=== PATIENT | male | born 1955 | race Caucasian/White ===

== ENCOUNTER 2017-07-05 03:46 | Observation (INO) | payer MEDICARE ==
--- NOTE | 2017-07-05 04:34 | ED ---
Chest Pain HPI - General Chief Complaint: Chest Pain Stated Complaint: Chest pain Time Seen by Provider: 07/05/17 03:48 Source: patient, EMS Mode of arrival: EMS Limitations: no limitations - History of Present Illness Initial Comments: This patient is a 61-year-old man who presents to be evaluated for chest pressure, and substernal area that came on around 2:30 this morning. Patient also states he has had multiple similar episodes of this going back for months possibly longer than that. He relates that he will often get this when he is trying to go to sleep. The symptoms are often accompanied by racing heartbeat or skipped beats. He does not use a CPAP, nor has he had a sleep study. MD Complaint: chest pain -: hour(s) Onset: during rest Pain Location: substernal Pain Radiation: none Severity: moderate Quality: tightness, heaviness Consistency: now resolved Improves With: nothing Worsens With: nothing Anginal Symptoms: dyspnea Treatments Prior to Arrival: none - Related Data Home Medications Medication Instructions Recorded Confirmed Aspirin 81 mg PO DAILY 07/05/17 07/05/17 Esomeprazole Magnesium [NexIUM] 40 mg PO DAILY 07/05/17 07/05/17 Febuxostat [Uloric] 40 mg PO Q48H 07/05/17 07/05/17 Fluticasone Nasal [place] [Flonase 1 - 2 spray EA NOSTRIL DAILY PRN 07/05/1707/05 Nasal [place]] Furosemide [Lasix] 40 mg PO Q48H 07/05/17 07/05/17 HYDROcodone/APAP 10-325MG [[place] 1 tab PO TID PRN 07/05/17 07/05/17 10-325] Levothyroxine Sodium [Synthroid] 75 mcg PO DAILY 07/05/17 07/05/17 Lisinopril [Zestril] 40 mg PO DAILY 07/05/17 07/05/17 Nadolol [Corgard] 20 mg PO DAILY 07/05/17 07/05/17 Potassium Chloride ER [K-Dur 20] 20 meq PO Q48H 07/05/17 07/05/17 Sertraline [Zoloft] 50 mg PO DAILY 07/05/17 07/05/17 amLODIPine [Norvasc] 10 mg PO DAILY 07/05/17 07/05/17 busPIRone HCL [Buspar] 30 mg PO DAILY 07/05/17 07/05/17 busPIRone HCL [Buspar] 30 mg PO HS PRN 07/05/17 07/05/17 Allergies Allergy/AdvReac Type Severity Reaction Status Date / Time cholesterol meds AdvReac See Uncoded 07/05/17 07:36 comments Review of Systems ROS Statement: Those systems with pertinent positive or pertinent negative responses have been documented in the HPI. ROS Other: All systems not noted in ROS Statement are negative. Constitutional: Denies: fever, chills Eyes: Denies: vision change Respiratory: Reports: dyspnea. Denies: cough, wheezes, hemoptysis Cardiovascular: Reports: chest pain, palpitations, orthopnea. Denies: dyspnea on exertion, edema, syncope Gastrointestinal: Denies: abdominal pain, vomiting, diarrhea Genitourinary: Denies: dysuria, hematuria Musculoskeletal: Denies: back pain Skin: Denies: rash Neurological: Denies: headache, weakness, numbness Psychiatric: Reports: anxiety EKG Findings - EKG Results: EKG: interpreted by SHABBIR, sinus rhythm (Rate approximately 80 bpm), normal axis , normal QRS - Blocks, [place], Hypertrophy, ST Abn: Repolarization changes or abnormalities: ST or T wave suggestive of ischemia ( Anterior leads, V2 through V5) Past Medical History Past Medical History: Atrial Fibrillation, Heart Failure, Hypertension, Thyroid Disorder History of Any Multi-Drug Resistant Organisms: None Reported Past Surgical History: Hernia Repair Past Psychological History: No Psychological Hx Reported Smoking Status: Current every day smoker Past Alcohol Use History: Daily General Exam Limitations: no limitations General appearance: alert, in no apparent distress, obese Head exam: Present: atraumatic, normocephalic Eye exam: Present: normal appearance ENT exam: Present: normal oropharynx Neck exam: Present: normal inspection, full ROM Respiratory exam: Present: wheezes (Trace expiratory wheeze). Absent: respiratory distress, rales, rhonchi, stridor, chest wall tenderness, accessory muscle use, decreased breath sounds, prolonged expiratory Cardiovascular Exam: Present: regular rate, normal rhythm, normal heart sounds. Absent: systolic murmur, diastolic murmur, rubs, gallop GI/Abdominal exam: Present: soft. Absent: distended, tenderness, guarding, rebound, mass Extremities exam: Present: normal inspection, normal capillary refill. Absent: pedal edema, calf tenderness Back exam: Present: normal inspection. Absent: CVA tenderness (R), CVA tenderness (L) Neurological exam: Present: alert Skin exam: Present: warm, dry, intact, normal color. Absent: rash Course Vital Signs 07/05/17 07/05/17 07/05/17 03:51 06:38 07:39 Temperature 98.4 F Pulse Rate 83 74 73 Respiratory 18 16 18 Rate Blood Pressure 148/83 121/73 122/76 O2 Sat by Pulse 97 96 97 Oximetry 07/05/17 08:16 Temperature Pulse Rate 73 Respiratory 18 Rate Blood Pressure 125/72 O2 Sat by Pulse 93 L Oximetry Chest Pain MDM - MDM This patient is 61-year-old man presenting to be evaluated for chest pain and palpitations that developed when he was lying flat trying to sleep. He has had episodes of this going back for some time. Suspect the underlying mechanism is related to obstructive sleep apnea. We'll admit for telemetry, serial cardiac enzymes. The patient also does drink 6-8 beers, will cover with Ativan protocol. Disposition
[2017-07-05 04:35] LABS: Basophils % (A) 1 %; Eosinophils # (A) 0.1 k/uL (0-0.7); Eosinophils % (A) 5 %; HGB 11.5 gm/dL (13.0-17.5); Lymphocytes # (A) 0.9 k/uL (1.0-4.8); Lymphocytes % (A) 32 %; MCHC 33.9 g/dL (31.0-37.0); MCV 103.5 fL (80.0-100.0); Macrocytosis Moderate; Mean Platelet Volume 8.3; Monocytes # (A) 0.1 k/uL (0-1.0); Monocytes % (A) 5 %; Neutrophils # (A) 1.5 k/uL (1.3-7.7); Neutrophils % (A) 55 %; Platelet Count 144 k/uL (150-450); Poikilocytosis Slight; RBC 3.28 m/uL (4.30-5.90); RDW 15.8 % (11.5-15.5); WBC 2.7 k/uL (3.8-10.6)
--- NOTE | 2017-07-05 04:38 | XR ---
EXAM: XR Chest, 2 Views CLINICAL HISTORY: ITS.REASON XR Reason: Chest Pain TECHNIQUE: Frontal and lateral views of the chest. COMPARISON: No relevant prior studies available. FINDINGS: Lungs: Unremarkable. No consolidation. Pleural space: Unremarkable. No pneumothorax. Heart: Mild cardiomegaly. Mediastinum: Unremarkable. Bones/joints: Unremarkable. IMPRESSION: Mild cardiomegaly. No acute cardiopulmonary findings.
[2017-07-05 04:48] LABS: ALT 138 U/L (21-72); AST 136 U/L (17-59); Alkaline Phosphatase 122 U/L (38-126); Anion Gap 12 mmol/L; Blood Urea Nitrogen 4 mg/dL (9-20); Carbon Dioxide 24 mmol/L (22-30); Chloride 94 mmol/L (98-107); Glucose 163 mg/dL (74-99); Potassium 3.5 mmol/L (3.5-5.1); Sodium 130 mmol/L (137-145); Total Bilirubin 1.2 mg/dL (0.2-1.3); Total Protein 6.3 g/dL (6.3-8.2)
[2017-07-05 04:51] LABS: D-Dimer 0.23 mg/L FEU (<0.60)
[2017-07-05 04:55] LABS: INR 1.1 (<1.2); Partial Thromboplastin Time 22.6 sec (22.0-30.0); Prothrombin Time 10.3 sec (9.0-12.0)
[2017-07-05 04:58] LABS: Creatine Kinase 52 U/L (55-170)
[2017-07-05 05:11] LABS: Troponin I <0.012 ng/mL (0.000-0.034)
[2017-07-05] MEDS ORDERED: NITROGLYCERIN SL TABS 0.4 MG TAB SUBLINGUAL PRN (06:57)
[2017-07-05] MEDS ORDERED: THIAMINE 100 MG/ML 2 ML VIAL IM STA (07:11)
[2017-07-05] MEDS ORDERED: LORazepam 2 MG/ML INJ IV PRN ×3 (07:11)
[2017-07-05] MEDS ORDERED: INFLUENZA VACCINE (6 MOS+) 60 MCG/0.5 ML SYRINGE IM ONE (08:20)
[2017-07-05] MEDS ORDERED: PNEUMOCOCCAL VACC-PNEUMOVAX 23 25 MCG/0.5 ML VIAL IM ONE (08:20)
[2017-07-05] MEDS ORDERED: busPIRone HCl 10 MG TAB PO PRN (09:26)
[2017-07-05] MEDS ORDERED: HYDROcodone/APAP 10-325MG 1 EACH TAB PO PRN (09:26)
[2017-07-05] MEDS ORDERED: POTASSIUM CHLORIDE ER 20 MEQ TAB.ER PO SCH (09:30)
[2017-07-05] MEDS ORDERED: FUROSEMIDE 40 MG TAB PO SCH (09:30)
[2017-07-05] MEDS ORDERED: ALLOPURINOL 100 MG TAB PO SCH (09:30)
[2017-07-05 10:30] LABS: Creatine Kinase 69 U/L (55-170)
[2017-07-05 10:41] LABS: Creatine Kinase MB 0.9 ng/mL (0.0-2.4); Troponin I <0.012 ng/mL (0.000-0.034)
--- NOTE | 2017-07-05 10:41 | ECHOF ---
Referral Reason:sob MEASUREMENTS -------- HEIGHT: 195.6 cm WEIGHT: 146.5 kg BP: 141/87 RVIDd: 3.7 cm (< 3.3) IVSd: 1.5 cm (0.6 - 1.1) LVIDd: 5.4 cm (3.9 - 5.3) LVPWd: 1.6 cm (0.6 - 1.1) IVSs: 1.9 cm LVIDs: 4.2 cm LVPWs: 2.0 cm LA Diam: 4.2 cm (2.7 - 3.8) LAESV Index (A-L): 26.26 ml/m Ao Diam: 4.0 cm (2.0 - 3.7) AV Cusp: 2.1 cm (1.5 - 2.6) MV EXCURSION: 20.195 mm (> 18.000) MV EF SLOPE: 93 mm/s (70 - 150) EPSS: 0.4 cm MV E Naresh: 0.87 m/s MV DecT: 266 ms MV A Naresh: 1.28 m/s MV E/A Ratio: 0.68 RAP: 5.00 mmHg RVSP: 24.33 mmHg FINDINGS -------- Sinus rhythm. This was a technically adequate study. The left ventricular size is normal. There is moderate concentric left ventricular hypertrophy. O verall left ventricular systolic function is normal with, an EF between 55 - 60 %. The right ventricle is mild to moderately enlarged. Normal LA size by volume 22+/-6 ml/m2. The right atrium is normal in size. There is mild aortic valve sclerosis. Mild mitral annular calcification present. There is trace mitral regurgitation. Mild tricuspid regurgitation present. Right ventricular systolic pressure is normal at < 35 mmHg. Trace/mild (physiologic) pulmonic regurgitation. The aortic root is dilated measuring 4.0cm. IVC Not well visulized. There is no pericardial effusion. CONCLUSIONS -------- 1. Sinus rhythm. 2. This was a technically adequate study. 3. The left ventricular size is normal. 4. There is moderate concentric left ventricular hypertrophy. 5. Overall left ventricular systolic function is normal with, an EF between 55 - 60 %. 6. The right ventricle is mild to moderately enlarged. 7. Normal LA size by volume 22+/-6 ml/m2. 8. The right atrium is normal in size. 9. There is mild aortic valve sclerosis. 10. Mild mitral annular calcification present. 11. There is trace mitral regurgitation. 12. Mild tricuspid regurgitation present. 13. Right ventricular systolic pressure is normal at < 35 mmHg. 14. Trace/mild (physiologic) pulmonic regurgitation. 15. The aortic root is dilated measuring 4.0cm. 16. IVC Not well visulized. 17. There is no pericardial effusion. CORN GRINDER: Jennie Waite RDCS
[2017-07-05] MEDS: SERTRALINE 50 MG TAB PO SCH (11:53)
[2017-07-05] MEDS: LISINOPRIL 20 MG TAB PO SCH (11:53)
[2017-07-05] MEDS: NADOLOL 20 MG TAB PO SCH (11:53)
[2017-07-05] MEDS: PANTOPRAZOLE 40 MG TABLET PO SCH (11:54)
[2017-07-05] MEDS: LEVOTHYROXINE 75 MCG TAB PO SCH (11:54)
[2017-07-05] MEDS: busPIRone HCl 10 MG TAB PO SCH (11:56)
--- NOTE | 2017-07-05 12:58 | P.HPIM ---
History of Present Illness H&P Date: 07/05/17 Chief Complaint: Racing heart This is a 61-year-old male with a known history of alcohol dependence, atrial fibrillation, congestive heart failure, hypothyroidism, hypertension and nicotine dependence. Patient presents to the emergency room with complaints of heart palpitations and racing heart over the last 3 nights. Patient reports each night he is gone to bed around 11:00 and starts to have racing heart shortness of breath and feeling lightheaded. He became very concerned when he had started to feel as though his arm was falling asleep during these episodes. He's also been very fatigued and not feeling well. He's been dealing with sinus congestion since May and also believes he had flulike symptoms. He' s been admitted to the observation floor cardiology has been consulted. His last stress test was 2 years ago. Troponins are negative 2. Chest x-rays negative for any acute process. It did reveal mild cardiomegaly. EKG shows a normal sinus rhythm with ST and T-wave abnormality consider anterior ischemia. D-dimer within normal range. White count 2.7 hemoglobin 11.5 and platelets are 144 possibly related to his alcohol use. As well as a sodium of 130 with AST 136 and ALT 138. Patient denies any nausea or vomiting. Denies any chest chest pain. Denies any bowel movement changes or any new urinary symptoms. Past Medical History Past Medical History: Atrial Fibrillation, Heart Failure, Hypertension, Thyroid Disorder Additional Past Medical History / Comment(s): Recent sinus infection/congestion tx with antibiotics, chronic pain low back, spinal stenosis, lumbago, arthritis multiple joints, past elevated LFTs, past Dimas's palsey. History of Any Multi-Drug Resistant Organisms: None Reported Past Surgical History: Hernia Repair Additional Past Surgical History / Comment(s): Abdominal hernia repair, R thigh fatty tumor removed, colonoscopies, epidural injections low back. Past Anesthesia/Blood Transfusion Reactions: No Reported Reaction Past Psychological History: No Psychological Hx Reported Smoking Status: Current every day smoker Past Alcohol Use History: Daily Medications and Allergies Home Medications Medication Instructions Recorded Confirmed Type Aspirin 81 mg PO DAILY 07/05/17 07/05/17 History Esomeprazole Magnesium [NexIUM] 40 mg PO DAILY 07/05/17 07/05/17 History Febuxostat [Uloric] 40 mg PO Q48H 07/05/17 07/05/17 History Fluticasone Nasal [place] [Flonase 1 - 2 spray EA NOSTRIL DAILY PRN 07/05/1707/05 History Nasal [place]] Furosemide [Lasix] 40 mg PO Q48H 07/05/17 07/05/17 History HYDROcodone/APAP 10-325MG [[place] 1 tab PO TID PRN 07/05/17 07/05/17 History 10-325] Levothyroxine Sodium [Synthroid] 75 mcg PO DAILY 07/05/17 07/05/17 History Lisinopril [Zestril] 40 mg PO DAILY 07/05/17 07/05/17 History Nadolol [Corgard] 20 mg PO DAILY 07/05/17 07/05/17 History Potassium Chloride ER [K-Dur 20] 20 meq PO Q48H 07/05/17 07/05/17 History Sertraline [Zoloft] 50 mg PO DAILY 07/05/17 07/05/17 History amLODIPine [Norvasc] 10 mg PO DAILY 07/05/17 07/05/17 History busPIRone HCL [Buspar] 30 mg PO DAILY 07/05/17 07/05/17 History busPIRone HCL [Buspar] 30 mg PO HS PRN 07/05/17 07/05/17 History Allergies Allergy/AdvReac Type Severity Reaction Status Date / Time cholesterol meds AdvReac See Uncoded 07/05/17 07:36 comments Physical Exam Vitals: Vital Signs Temp Pulse Pulse Resp BP BP Pulse Ox 07/05/17 12:00 75 18 07/05/17 11:10 75 18 07/05/17 09:17 97.7 F 75 18 141/87 100 07/05/17 09:03 98.4 F 73 18 125/72 93 L 07/05/17 08:16 73 18 125/72 93 L 07/05/17 07:39 73 18 122/76 97 07/05/17 06:38 74 16 121/73 96 07/05/17 03:51 98.4 F 83 18 148/83 97 Intake and Output 07/04/17 07/05/17 07/05/17 22:59 06:59 14:59 Other: Voiding Method Toilet # Voids 1 Weight 147.418 kg 146.6 kg Results CBC & Chem 7: 03/27/18 04:05 07/05/17 04:05 Labs: Abnormal Lab Results - Last 24 Hours (Table) 07/05/17 07/05/17 07/05/17 Range/Units 04:05 04:05 04:05 WBC 2.7 L (3.8-10.6) k/uL RBC 3.28 L (4.30-5.90) m/uL Hgb 11.5 L (13.0-17.5) gm/dL Hct 34.0 L (39.0-53.0) % MCV 103.5 H (80.0-100.0) fL RDW 15.8 H (11.5-15.5) % Plt Count 144 L (150-450) k/uL Lymphocytes # 0.9 L (1.0-4.8) k/uL Sodium 130 L (137-145) mmol/L Chloride 94 L (98-107) mmol/L BUN 4 L (9-20) mg/dL Glucose 163 H (74-99) mg/dL AST 136 H (17-59) U/L ALT 138 H (21-72) U/L Total Creatine Kinase 52 L (55-170) U/L Thrombosis Risk Factor Assmnt - Choose All That Apply Any of the Below Risk Factors Present?: Yes Each Factor Represents 1 point: Obesity (BMI >25), Swollen legs (current) Other Risk Factors: Yes Each Risk Factor Represents 2 Points: Age 61-74 years Other congenital or acquired thrombophilia - If yes, enter type in comment: No Thrombosis Risk Factor Assessment Total Risk Factor Score: 4 Thrombosis Risk Factor Assessment Level: Moderate Risk Assessment and Plan Assessment: 1. Heart palpitations with shortness of breath and lightheadedness: Continue with telemetry monitoring currently remains in normal sinus rhythm. EKG shows a normal sinus rhythm with some ST and T-wave abnormality. Troponins are negative 2. Cardiology has been consulted. Echocardiogram results pending. Check thyroid level 2. History of atrial fibrillation patient reports never being on anticoagulation 3. Alcohol dependence: Drinks about 6-8 beers daily. Patient started on the CIWA protocol with Ativan. Continue thiamine and multivitamin 4. Hyponatremia sodium 130: Likely related to patient's alcohol use. He is also on Lasix. We'll place him on fluid restrictions 1500 mL per day 5. Elevated LFTs likely related to patient's alcohol use. No abdominal pain. 6. Nicotine dependence discussed smoking cessation. Patient refused nicotine patch 7. Leukopenia and thrombocytopenia again likely related to patient's alcohol use. Repeat labs in a.m. 8. Hypothyroidism checking thyroid level. Continue Synthroid 9. Essential hypertension continue lisinopril GI and DVT prophylaxis Pepcid and subcu heparin Time with Patient: Greater than 30 (Greater than 50% of the total time spent in counseling and coordination of care.I performed an examination of the patient and discussed their management with the physician Loom Setter Fourdrinier. I have reviewed the Physician Loom Setter Fourdrinier's notes and agree with the documented findings and plan of care)
--- NOTE | 2017-07-05 14:10 | P.CRDCN ---
History of Present Illness Consult date: 07/05/17 Consult reason: shortness of breath History of present illness: Mr. Hernadez is a pleasant 61-year-old male past medical history significant for hypertension, gastroesophageal reflux disease, anxiety, depression, hypothyroidism, chronic back pain, daily alcohol use and chronic tobacco and marijuana use. He denies history of coronary artery disease or atrial fibrillation. He states he wore an event monitor many years ago but that was unremarkable at that time. He has never seen a interpretive program coordinator for any reason. We have been asked to see him in consultation for chest pain and palpitations. He states for the last 4 nights when he lays down for bed he starts feeling his heart racing fast. This lasts for approximately 30-60 seconds and then slowly subsides on its own. However, last night it started again and didn't slow down for approximately 2 hours. It was at this time he decided to come to the hospital for further evaluation. At the time of the palpitations he feels mildly short of breath and slightly dizzy as well. He denies associated chest pain, diaphoresis, nausea or vomiting. Since coming to the hospital the symptoms have resolved and he has had no reoccurrence. He states he has had a stress test and an echocardiogram with his primary care physician approximately 2 years ago that was unremarkable. EKG on arrival reveals sinus mechanism with nonspecific ST and T-wave abnormalities. Chest x-ray mild cardiomegaly with no acute cardiopulmonary process. Laboratory data reviewed, d-dimer negative, cardiac enzymes negative 2, potassium 3.5, sodium 1:30, magnesium 2.0, proBNP 262, AST 136, ALP 138, hemoglobin 11.5. Current cardiac medications include lisinopril 40 mg daily, amlodipine 10 mg daily, aspirin 81 mg daily, nadolol 20 mg daily, Lasix 40 mg every other day and potassium supplementation 20 every other day. Echocardiogram and Doppler study was performed reveals preserved left ventricular systolic function with ejection fraction 55-60%. Review of Systems At the time of my exam: CONSTITUTIONAL: Denies fever. Denies chills. EYES: Denies blurred vision. Denies vision changes. Denies eye pain. EARS, NOSE, MOUTH & THROAT: Denies headache. Denies sore throat. Denies ear pain. CARDIOVASCULAR: Denies chest pain. Denies shortness of breath. Denies orthopnea. Denies PND. Denies palpitations. RESPIRATORY: Denies cough. GASTROINTESTINAL: Denies abdominal pain. Denies diarrhea. Denies constipation. Denies nausea. Denies vomiting. MUSCULOSKELETAL: Denies myalgias. INTEGUMENTARY: Denies pruitis. Denies rash. NEUROLOGIC: Denies numbness. Denies tingling. Denies weakness. PSYCHIATRIC: Denies anxiety. Denies depression. ENDOCRINE: Denies fatigue. Denies weight change. Denies polydipsia. Denies polyurina. GENITOURINARY: Denies burning, hematuria or urgency with micturation. HEMATOLOGIC: Denies history of anemia. Denies bleeding. Past Medical History Past Medical History: Atrial Fibrillation, Heart Failure, Hypertension, Thyroid Disorder Additional Past Medical History / Comment(s): Recent sinus infection/congestion tx with antibiotics, chronic pain low back, spinal stenosis, lumbago, arthritis multiple joints, past elevated LFTs, past Dimas's palsey. History of Any Multi-Drug Resistant Organisms: None Reported Past Surgical History: Hernia Repair Additional Past Surgical History / Comment(s): Abdominal hernia repair, R thigh fatty tumor removed, colonoscopies, epidural injections low back. Past Anesthesia/Blood Transfusion Reactions: No Reported Reaction Past Psychological History: No Psychological Hx Reported Smoking Status: Current every day smoker Past Alcohol Use History: Daily Medications and Allergies Home Medications Medication Instructions Recorded Confirmed Type Aspirin 81 mg PO DAILY 07/05/17 07/05/17 History Esomeprazole Magnesium [NexIUM] 40 mg PO DAILY 07/05/17 07/05/17 History Febuxostat [Uloric] 40 mg PO Q48H 07/05/17 07/05/17 History Fluticasone Nasal [place] [Flonase 1 - 2 spray EA NOSTRIL DAILY PRN 07/05/1707/05 History Nasal [place]] Furosemide [Lasix] 40 mg PO Q48H 07/05/17 07/05/17 History HYDROcodone/APAP 10-325MG [[place] 1 tab PO TID PRN 07/05/17 07/05/17 History 10-325] Levothyroxine Sodium [Synthroid] 75 mcg PO DAILY 07/05/17 07/05/17 History Lisinopril [Zestril] 40 mg PO DAILY 07/05/17 07/05/17 History Nadolol [Corgard] 20 mg PO DAILY 07/05/17 07/05/17 History Potassium Chloride ER [K-Dur 20] 20 meq PO Q48H 07/05/17 07/05/17 History Sertraline [Zoloft] 50 mg PO DAILY 07/05/17 07/05/17 History amLODIPine [Norvasc] 10 mg PO DAILY 07/05/17 07/05/17 History busPIRone HCL [Buspar] 30 mg PO DAILY 07/05/17 07/05/17 History busPIRone HCL [Buspar] 30 mg PO HS PRN 07/05/17 07/05/17 History Allergies Allergy/AdvReac Type Severity Reaction Status Date / Time cholesterol meds AdvReac See Uncoded 07/05/17 07:36 comments Physical Exam Vitals: Vital Signs Temp Pulse Pulse Resp BP BP Pulse Ox 07/05/17 09:17 97.7 F 75 18 141/87 100 07/05/17 09:03 98.4 F 73 18 125/72 93 L 07/05/17 08:16 73 18 125/72 93 L 07/05/17 07:39 73 18 122/76 97 07/05/17 06:38 74 16 121/73 96 07/05/17 03:51 98.4 F 83 18 148/83 97 Intake and Output 07/04/17 07/05/17 07/05/17 22:59 06:59 14:59 Other: Weight 147.418 kg 146.6 kg Blood pressure 125/72 heart rate 73 afebrile maintaining oxygen saturation on room air GENERAL: This is a 61-year-old male in no apparent distress at the time of my examination. HEENT: Head is atraumatic, normocephalic. Pupils are equal, round. Sclerae anicteric. Conjunctivae are clear. Mucous membranes of the mouth are moist. Neck is supple. There is no jugular venous distention. No carotid bruit is heard. LUNGS: Clear to auscultation no wheezes, rales or rhonchi. No chest wall tenderness is noted on palpation or with deep breathing. HEART: Regular rate and rhythm without murmurs, rubs or gallops. S1 and S2 heard. ABDOMEN: Soft, nontender. Bowel sounds are heard. No organomegaly noted. EXTREMITIES: 1+ pitting bilateral lower extremity edema and no calf tenderness noted. VASCULAR: Radial and dorsalis pedis pulses palpated, no evidence of clubbing. NEUROLOGIC: Patient is awake, alert and oriented x3. Results 07/05/17 04:05 07/05/17 04:05 Cardiac Enzymes 07/05/17 07/05/17 Range/Units 04:05 04:05 AST 136 H (17-59) U/L CK-MB (CK-2) 1.0 (0.0-2.4) ng/mL Troponin I <0.012 (0.000-0.034) ng/mL Coagulation 07/05/17 Range/Units 04:05 PT 10.3 (9.0-12.0) sec APTT 22.6 (22.0-30.0) sec CBC 07/05/17 Range/Units 04:05 WBC 2.7 L (3.8-10.6) k/uL RBC 3.28 L (4.30-5.90) m/uL Hgb 11.5 L (13.0-17.5) gm/dL Hct 34.0 L (39.0-53.0) % Plt Count 144 L (150-450) k/uL Comprehensive Metabolic Panel 07/05/17 Range/Units 04:05 Sodium 130 L (137-145) mmol/L Potassium 3.5 (3.5-5.1) mmol/L Chloride 94 L (98-107) mmol/L Carbon Dioxide 24 (22-30) mmol/L BUN 4 L (9-20) mg/dL Creatinine 0.70 (0.66-1.25) mg/dL Glucose 163 H (74-99) mg/dL Calcium 9.0 (8.4-10.2) mg/dL AST 136 H (17-59) U/L ALT 138 H (21-72) U/L Alkaline Phosphatase 122 (38-126) U/L Total Protein 6.3 (6.3-8.2) g/dL Albumin 4.0 (3.5-5.0) g/dL Current Medications Generic Name Dose Route Start Last Admin Trade Name Freq PRN Reason Stop Dose Admin Hydrocodone Bitart/Acetaminophen 1 each 07/05/17 09:26 [place] 10 PO TID PRN Pain Aspirin 325 mg 07/06/17 09:00 Aspirin PO DAILY JERRY Buspirone HCl 30 mg 07/05/17 09:30 Buspar PO DAILY JERRY Buspirone HCl 30 mg 07/05/17 09:26 Buspar PO HS PRN Anxiety Furosemide 40 mg 07/05/17 09:30 Lasix PO Q48H [facility] Levothyroxine Sodium 75 mcg 07/05/17 09:30 Synthroid PO DAILY JERRY Lorazepam 1 mg 07/05/17 07:11 Ativan IV Q2HR PRN CIWA 8 or 9 Lorazepam 1 mg 07/05/17 07:11 Ativan IV Q1HR PRN CIWA 10 to 15 Lorazepam 2 mg 07/05/17 07:11 Ativan IV 07/07/17 07:11 Q10M PRN CIWA 16 or higher Nadolol 20 mg 07/05/17 09:30 Corgard PO DAILY [facility] Nitroglycerin 0.4 mg 07/05/17 06:57 Nitrostat SUBLINGUAL Q5M PRN Chest Pain Non-Formulary Medication 40 mg 07/05/17 09:30 Febuxostat [Uloric] PO Q48H [facility] Non-Formulary Medication 40 mg 07/05/17 09:30 Lisinopril [Zestril] PO DAILY [facility] Pantoprazole Sodium 40 mg 07/05/17 09:30 Protonix PO AC-BRKFST [facility] Potassium Chloride 20 meq 07/05/17 09:30 K-Dur 20 PO Q48H [facility] Sertraline HCl 50 mg 07/05/17 09:30 Zoloft PO DAILY [facility] Thiamine HCl 100 mg 07/05/17 17:00 Vitamin B-1 PO BID@1200,1700 [facility] Intake and Output 07/04/17 07/05/17 07/05/17 22:59 06:59 14:59 Other: Weight 147.418 kg 146.6 kg Patient Weight 07/06/17 06:59 Weight 146.6 kg 07/05/17 04:05 07/05/17 04:05 Assessment and Plan Assessment: ASSESSMENT 1. Chest pain, atypical. 2. Palpitations 3. Hypertension 4. Dyslipidemia, unable to tolerate statins 5. Chronic tobacco use 6. Daily alcohol use 7. Elevated liver function PLAN Check TSH and free T4. Continue to obtain serial cardiac enzymes to rule out an acute coronary event. Ongoing telemetry monitoring for an acute arrhythmia. Advised him to tell his nurse if he is feeling any symptoms to capture an EKG. If third set of enzymes are negative we will proceed with Lexiscan stress test tomorrow. May consider event monitor upon discharge. Advised him of lifestyle modifications, especially alcohol and tobacco cessation. Thank you kindly for this consultation. Nurse Practitioner note has been reviewed, I agree with a documented findings and plan of care. Patient was seen and examined.
[2017-07-05 16:31] LABS: Creatine Kinase 65 U/L (55-170)
[2017-07-05 16:44] LABS: Creatine Kinase MB 0.7 ng/mL (0.0-2.4); Troponin I <0.012 ng/mL (0.000-0.034)
[2017-07-05] MEDS: SODIUM CHLORIDE 0.9% 1,000 ML IV SCH ×2 (17:53→20:53)
[2017-07-05] MEDS: FAMOTIDINE 20 MG TAB PO SCH (17:53)
[2017-07-05] MEDS: THIAMINE 100 MG TAB PO SCH (18:01)
[2017-07-05] MEDS: HEPARIN SODIUM,PORCINE 5,000 UNIT/ML 1 ML VIAL SQ SCH (20:52)
[2017-07-06] MEDS ORDERED: AMINOPHYLLINE 500 MG/20 ML VIAL IV PRN (05:00)
[2017-07-06] MEDS: SODIUM CHLORIDE 0.9% 1,000 ML IV SCH (06:45)
[2017-07-06 07:37] LABS: Cholesterol 169 mg/dL (<200); HDL Cholesterol 40 mg/dL (40-60); LDL Cholesterol,Calculated 102 mg/dL (0-99); Triglycerides 136 mg/dL (<150)
[2017-07-06] MEDS ORDERED: REGADENOSON 0.4 MG/5 ML SYRINGE IV ONE (08:00)
[2017-07-06] MEDS ORDERED: ASPIRIN 325 MG TAB PO SCH ×2 (09:00)
[2017-07-06] MEDS: NADOLOL 20 MG TAB PO SCH (10:27)
[2017-07-06] MEDS: LISINOPRIL 20 MG TAB PO SCH (10:27)
[2017-07-06] MEDS: FAMOTIDINE 20 MG TAB PO SCH (10:27)
[2017-07-06] MEDS: busPIRone HCl 10 MG TAB PO SCH (10:27)
[2017-07-06] MEDS: LEVOTHYROXINE 75 MCG TAB PO SCH (10:28)
[2017-07-06] MEDS: SERTRALINE 50 MG TAB PO SCH (10:28)
[2017-07-06] MEDS: THIAMINE 100 MG TAB PO SCH (10:28)
[2017-07-06] MEDS: PANTOPRAZOLE 40 MG TABLET PO SCH (10:28)
[2017-07-06] MEDS: HEPARIN SODIUM,PORCINE 5,000 UNIT/ML 1 ML VIAL SQ SCH (10:28)
[2017-07-06] MEDS ORDERED: ASPIRIN 81 MG PO SCH (10:39)
--- NOTE | 2017-07-06 10:40 | NM ---
EXAMINATION TYPE: NM stress lexiscan cardiolite DATE OF EXAM: 07/06/2017 COMPARISON: NONE HISTORY: 61 year-old male shortness of breath, difficulty breathing, palpitations TECHNIQUE: After the intravenous administration of 9.9 mCi Tc 99m Sestamibi - Cardiolite resting SPE CT images acquired 45 minutes post injection. The patient received 0.4mg Lexiscan, 26.7 mCi Tc 99m Sestamibi - Stress images obtained [address] injection FINDINGS: Review of stress and rest SPECT images demonstrates no distinct stress-induced perfusion abnormality. On rest images, there is decreased perfusion along the apex and inferior wall suggestive of attenuat ion artifact. Gated analysis shows normal wall motion with an estimated left ventricular ejection fra ction of 68 %. TID is calculated at 0.78, within normal limits. IMPRESSION: No scintigraphic evidence for reversible ischemia.
[2017-07-06] MEDS ORDERED: MULTIVITAMINS, THERA 1 EACH TAB PO SCH (12:00)
--- NOTE | 2017-07-06 14:50 | EST ---
EXERCISE STRESS DATE OF SERVICE: 07/06/17 AGE: 61 SEX: M HT: 6'5" WT: 323 lb HEART RATE REST: 62 BLOOD PRESSURE REST: 138/75 MAXIMUM HEART RATE ACHIEVED: 92 MAXIMUM BLOOD PRESSURE: 161/86 85% MPHR: 134 100% MPHR: 158 METS: INDICATIONS: Difficulty breathing. RESULTS: Baseline EKG revealed normal sinus rhythm with inferolateral nonspecific ST abnormality. With Lexiscan administration, heart rate changed from 68-79 beats per minute. Blood pressure changed from 138/75 to 159/81. EKG remained inconclusive. Patient had transient nausea. By EKG criteria, this is an inconclusive Lexiscan stress test because of resting EKG changes. The nuclear scan results, which are more pertinent, will be reported by the radiologist. MMKERRI / EZEKIELN: [id number] /
--- NOTE | 2017-07-06 15:57 | P.DS ---
Providers Date of admission: 07/05/17 07:11 Expected date of discharge: 07/06/17 Attending physician: Gary Camilo Consults: 07/05/17 06:57 Consult Physician Routine Consulting Provider: Adrien Minor Consult Reason/Comments: chest pain Do you want consulting provider notified?: Yes Primary care physician: Lucia Light Pertinent Studies: Diagnoses on discharge: 1. Heart palpitations with shortness of breath and lightheadedness: Continue with telemetry monitoring currently remains in normal sinus rhythm. EKG shows a normal sinus rhythm with some ST and T-wave abnormality. Troponins are negative 2. Cardiology has been consulted. Echocardiogram results pending. Check thyroid level 2. History of atrial fibrillation patient reports never being on anticoagulation 3. Alcohol dependence: Drinks about 6-8 beers daily. Patient started on the CIWA protocol with Ativan. Continue thiamine and multivitamin 4. Hyponatremia sodium 130: Likely related to patient's alcohol use. He is also on Lasix. We'll place him on fluid restrictions 1500 mL per day 5. Elevated LFTs likely related to patient's alcohol use. No abdominal pain. 6. Nicotine dependence discussed smoking cessation. Patient refused nicotine patch 7. Leukopenia and thrombocytopenia again likely related to patient's alcohol use. Repeat labs in a.m. 8. Hypothyroidism checking thyroid level. Continue Synthroid 9. Essential hypertension continue lisinopril, Nadolol and amlodipine Hospital course: This is a 61-year-old male with a known history of alcohol dependence, atrial fibrillation, congestive heart failure, hypothyroidism, hypertension and nicotine dependence. Patient presents to the emergency room with complaints of heart palpitations and racing heart over the last 3 nights. Patient reports each night he is gone to bed around 11:00 and starts to have racing heart shortness of breath and feeling lightheaded. He became very concerned when he had started to feel as though his arm was falling asleep during these episodes. He's also been very fatigued and not feeling well. He's been dealing with sinus congestion since May and also believes he had flulike symptoms. He' s been admitted to the observation floor cardiology has been consulted. His last stress test was 2 years ago. Troponins are negative 2. Chest x-rays negative for any acute process. It did reveal mild cardiomegaly. EKG shows a normal sinus rhythm with ST and T-wave abnormality consider anterior ischemia. D-dimer within normal range. White count 2.7 hemoglobin 11.5 and platelets are 144 possibly related to his alcohol use. As well as a sodium of 130 with AST 136 and ALT 138. Patient denies any nausea or vomiting. Denies any chest chest pain. Denies any bowel movement changes or any new urinary symptoms. On 07/06 patient is chest pain free he underwent Lexiscan stress test which was negative for any evidence of reversible ischemia, per his nurse patient was evaluated by cardiology and was cleared for discharge, patient is symptom-free at this time he will be discharged home, he should follow-up with cardiology in the next few days for possible event monitor in regard to his palpitation. Plan - Discharge Summary Discharge Rx Participant: No New Discharge Prescriptions: Continue amLODIPine [Norvasc] 10 mg PO DAILY Aspirin 81 mg PO DAILY busPIRone HCL [Buspar] 30 mg PO HS PRN PRN Reason: Anxiety busPIRone HCL [Buspar] 30 mg PO DAILY Esomeprazole Magnesium [NexIUM] 40 mg PO DAILY Febuxostat [Uloric] 40 mg PO Q48H Fluticasone Nasal Orange [Flonase Nasal Orange] 1 - 2 spray EA NOSTRIL DAILY PRN PRN Reason: Allergy Symptoms Furosemide [Lasix] 40 mg PO Q48H HYDROcodone/APAP 10-325MG [Obion 10-325] 1 tab PO TID PRN PRN Reason: Pain Levothyroxine Sodium [Synthroid] 75 mcg PO DAILY Lisinopril [Zestril] 40 mg PO DAILY Nadolol [Corgard] 20 mg PO DAILY Potassium Chloride ER [K-Dur 20] 20 meq PO Q48H Sertraline [Zoloft] 50 mg PO DAILY Discharge Medication List Aspirin 81 mg PO DAILY 07/05/17 [History] Esomeprazole Magnesium [NexIUM] 40 mg PO DAILY 07/05/17 [History] Febuxostat [Uloric] 40 mg PO Q48H 07/05/17 [History] Fluticasone Nasal Orange [Flonase Nasal Orange] 1 - 2 spray EA NOSTRIL DAILY PRN 07/05/17 [History] Furosemide [Lasix] 40 mg PO Q48H 07/05/17 [History] HYDROcodone/APAP 10-325MG [Obion 10-325] 1 tab PO TID PRN 07/05/17 [History] Levothyroxine Sodium [Synthroid] 75 mcg PO DAILY 07/05/17 [History] Lisinopril [Zestril] 40 mg PO DAILY 07/05/17 [History] Nadolol [Corgard] 20 mg PO DAILY 07/05/17 [History] Potassium Chloride ER [K-Dur 20] 20 meq PO Q48H 07/05/17 [History] Sertraline [Zoloft] 50 mg PO DAILY 07/05/17 [History] amLODIPine [Norvasc] 10 mg PO DAILY 07/05/17 [History] busPIRone HCL [Buspar] 30 mg PO DAILY 07/05/17 [History] busPIRone HCL [Buspar] 30 mg PO HS PRN 07/05/17 [History] Follow up Appointment(s)/Referral(s): Sondra Avila MD [STAFF PHYSICIAN] - As Needed Lucia Light DO [Primary Care Provider] - 1-2 days
[2017-07-06 16:12] VITALS: BP 142/83; PULSE 60; RESP 17; TEMP 98.9
--- NOTE | 2017-07-06 20:32 | PN ---
PROGRESS NOTE Mr. Hernadez is resting comfortably. He has no chest pain this morning. Vital signs are stable. There is no JVD or carotid bruit. S1, S2 are heard normally. Lungs reveal improved air entry. Abdomen and lower extremity exam is unchanged. This gentleman is going to have a stress Cardiolite scan or a Lexiscan stress test, and if abnormal we will intervene. Otherwise, if it is normal, he will be discharged and will follow up with his primary care physician. Risk factor modification issues were discussed. MMODL / IJN: [id number] /
== END 2017-07-06 16:36 | disposition home or self-care (01) ==
LOC: EC 03:46 → INTOOBSV 07:11 → 6SEL 07:11 → 3OBS 07:20
PROVIDERS: ADMIT Internal Medicine; ATTEND Internal Medicine
DX: R00.2 Palpitations (principal); R07.89 Other chest pain; R06.02 Shortness of breath; R00.0 Tachycardia, unspecified; R94.5 Abnormal results of liver function studies; E87.1 Hypo-osmolality and hyponatremia; D72.819 Decreased white blood cell count, unspecified; D69.6 Thrombocytopenia, unspecified; I11.0 Hypertensive heart disease with heart failure; I50.9 Heart failure, unspecified; F41.9 Anxiety disorder, unspecified; I48.91 Unspecified atrial fibrillation; F17.200 Nicotine dependence, unspecified, uncomplicated; F10.20 Alcohol dependence, uncomplicated; E03.9 Hypothyroidism, unspecified; R42 Dizziness and giddiness; R09.81 Nasal congestion; G89.29 Other chronic pain; M48.00 Spinal stenosis, site unspecified; E66.9 Obesity, unspecified; Z68.38 Body mass index [BMI] 38.0-38.9, adult; M54.5 Low back pain; M19.90 Unspecified osteoarthritis, unspecified site; Z79.82 Long term (current) use of aspirin; Z79.51 Long term (current) use of inhaled steroids; Z79.899 Other long term (current) drug therapy; Z88.8 Allergy status to other drugs, medicaments and biological substances
CPT/HCPCS: 99285 ×2; 96372 ×2; 36415; 93005; 93017; 93306; 85379; 84439; 83880; 80061; 80053; 82550; 82553; 83735; 84443; 84484; 85025; 85610; 85730; 71046; 78452; G0378 ×2; A9500; J1644 ×2; J2785

== ENCOUNTER 2017-12-05 12:47 | Emergency (ER) | payer BC, MEDICARE ==
--- NOTE | 2017-12-05 13:53 | ED ---
General Adult HPI - General Chief complaint: Recheck/Abnormal Lab/Rx Stated complaint: Bowel Incontinence Time Seen by Provider: 12/05/17 13:34 Source: patient, RN notes reviewed Mode of arrival: ambulatory Limitations: no limitations - History of Present Illness Initial comments: This is a 62-year-old male who presents to the emergency department with chief complaint of change in bowel habits. Patient states that over the past 6 months he has had loose stools. He states that this happens between the hours of midnight and noon. He states that at least 5 times over the past 6 months he has had bowel urgency and has not made it to the bathroom in time. He reports that between 2 PM and 7 PM he drinks beer. He states that he then has dinner and goes to bed. Patient also reports associated low abdominal discomfort. Denies any significant pain. Denies nausea or vomiting, fevers or chills, chest pain or shortness of breath. Patient states that he has had 3 colonoscopies and a barium enema performed in the past and they have all come back normal. He states that he has difficulty getting in to see his primary care provider and knows that the emergency department has tests to figure out what is wrong with him. He denies any history of IBS, Crohn's disease or ulcerative colitis. - Related Data Home Medications Medication Instructions Recorded Confirmed Aspirin 81 mg PO DAILY 07/05/17 12/05/17 Esomeprazole Magnesium [NexIUM] 40 mg PO DAILY 07/05/17 12/05/17 Furosemide [Lasix] 20 mg PO DAILY 07/05/17 12/05/17 HYDROcodone/APAP 10-325MG [Rosine 1 tab PO TID PRN 07/05/17 12/05/17 10-325] Levothyroxine Sodium [Synthroid] 75 mcg PO DAILY 07/05/17 12/05/17 Lisinopril [Zestril] 40 mg PO DAILY 07/05/17 12/05/17 Nadolol [Corgard] 20 mg PO DAILY 07/05/17 12/05/17 Potassium Chloride ER [K-Dur 20] 20 meq PO DAILY 07/05/17 12/05/17 Sertraline [Zoloft] 50 mg PO DAILY 07/05/17 12/05/17 amLODIPine [Norvasc] 10 mg PO DAILY 07/05/17 12/05/17 busPIRone HCL [Buspar] 30 mg PO BID 07/05/17 12/05/17 Allergies Allergy/AdvReac Type Severity Reaction Status Date / Time cholesterol meds AdvReac See Uncoded 12/05/17 13:01 comments Review of Systems ROS Statement: Those systems with pertinent positive or pertinent negative responses have been documented in the HPI. ROS Other: All systems not noted in ROS Statement are negative. Past Medical History Past Medical History: Atrial Fibrillation, Heart Failure, Hypertension, Thyroid Disorder Additional Past Medical History / Comment(s): Recent sinus infection/congestion tx with antibiotics, chronic pain low back, spinal stenosis, lumbago, arthritis multiple joints, past elevated LFTs, past Dimas's palsey. History of Any Multi-Drug Resistant Organisms: None Reported Past Surgical History: Hernia Repair Additional Past Surgical History / Comment(s): Abdominal hernia repair, R thigh fatty tumor removed, colonoscopies, epidural injections low back. Past Anesthesia/Blood Transfusion Reactions: No Reported Reaction Past Psychological History: No Psychological Hx Reported Smoking Status: Current every day smoker Past Alcohol Use History: Daily Past Drug Use History: None Reported General Exam - General Exam Comments Initial Comments: General: Awake and alert, well-developed; in no apparent distress. Disheveled in appearance. HEENT: Head atraumatic, normocephalic. Pupils are equal, round and reactive to light. Extraocular movements intact. Oropharynx moist without erythema or exudate. Neck: Supple. Normal ROM. Cardiovascular: Regular rate and rhythm. No murmurs, rubs or gallops. Chest symmetrical. Respiratory: Lungs clear to auscultation bilaterally. No wheezes, rales or rhonchi. Normal respiratory effort with no use of accessory muscles. Abdomen: Firm, distended. No significant tenderness on palpation. No rigidity , rebound or guarding. Normal bowel sounds in all 4 quadrants. Musculoskeletal: Normal ROM, no tenderness bilateral upper and lower extremities. Ambulating normally. Skin: [place], warm and dry without rashes or lesions. Neurological: Alert and oriented x3. CN II-XII grossly intact. Speech is fluent and answers are appropriate. No focal neuro deficits. Limitations: no limitations Course Vital Signs 12/05/17 12/05/17 13:00 15:01 Temperature 99.0 F Pulse Rate 65 60 Respiratory 20 20 Rate Blood Pressure 129/81 120/65 O2 Sat by Pulse 98 98 Oximetry Medical Decision Making - Medical Decision Making This is a 62-year-old male who presents to the emergency department with chief complaint of change in bowel habits. Patient is a daily alcohol drinker. Patient reports loose stools for the past few months. Patient states that he has difficulty getting in to see his primary care provider and knew that coming to the emergency department would hasten evaluation. Patient denies any significant abdominal pain, nausea or vomiting, fevers or chills. On physical examination, abdomen is firm and distended. CBC revealed pancytopenia. This is consistent with previous laboratory studies. CMP essentially unremarkable. UA negative. Computed tomography scan of the abdomen and pelvis with contrast was obtained. This revealed hepatosplenomegaly, circumstantial bladder wall thickening and mild sigmoid diverticulosis. No evidence of diverticulitis. She revealed focal soft tissue density in the subcutaneous fat of the right buttock. Patient states that this was from a fall he had one week ago. Findings were discussed with attending physician, Dr. Sprague. Patient will be referred to gastroenterology and urology. This was discussed with patient who is in agreement with plan. His vital signs have been stable and he is in no acute distress. He will be discharged home at this time. All questions were answered. - Lab Data Result diagrams: 12/05/17 14:11 12/05/17 14:11 Lab Results 12/05/17 12/05/17 12/05/17 Range/Units 14:11 14:11 14:11 WBC 2.9 L (3.8-10.6) k/uL RBC 3.02 L (4.30-5.90) m/uL Hgb 11.0 L (13.0-17.5) gm/dL Hct 34.1 L (39.0-53.0) % MCV 112.9 H (80.0-100.0) fL MCH 36.5 H (25.0-35.0) pg MCHC 32.3 (31.0-37.0) g/dL RDW 16.7 H (11.5-15.5) % Plt Count 149 L (150-450) k/uL Neutrophils % 66 % Lymphocytes % 22 % Monocytes % 6 % Eosinophils % 3 % Basophils % 1 % Neutrophils # 1.9 (1.3-7.7) k/uL Lymphocytes # 0.7 L (1.0-4.8) k/uL Monocytes # 0.2 (0-1.0) k/uL Eosinophils # 0.1 (0-0.7) k/uL Basophils # 0.0 (0-0.2) k/uL Manual Slide Review Performed Poikilocytosis Slight Anisocytosis Slight Macrocytosis Marked PT 11.1 (9.0-12.0) sec INR 1.2 H (<1.2) APTT 22.8 (22.0-30.0) sec Sodium 136 L (137-145) mmol/L Potassium 3.8 (3.5-5.1) mmol/L Chloride 101 (98-107) mmol/L Carbon Dioxide 27 (22-30) mmol/L Anion Gap 8 mmol/L BUN 6 L (9-20) mg/dL Creatinine 0.74 (0.66-1.25) mg/dL Est GFR (CKD-EPI)AfAm >90 (>60 ml/min/1.73 sqM) Est GFR (CKD-EPI)NonAf >90 (>60 ml/min/1.73 sqM) Glucose 107 H (74-99) mg/dL Calcium 8.8 (8.4-10.2) mg/dL Total Bilirubin 1.9 H (0.2-1.3) mg/dL AST 60 H (17-59) U/L ALT 48 (21-72) U/L Alkaline Phosphatase 105 (38-126) U/L Total Protein 5.9 L (6.3-8.2) g/dL Albumin 3.6 (3.5-5.0) g/dL Amylase 39 (30-110) U/L Lipase 155 (23-300) U/L Urine Color Urine Appearance (Clear) Urine pH (5.0-8.0) Ur Specific Kennan (1.001-1.035) Urine Protein (Negative) Urine Glucose (UA) (Negative) Urine Ketones (Negative) Urine Blood (Negative) Urine Nitrite (Negative) Urine Bilirubin (Negative) Urine Urobilinogen (<2.0) mg/dL Ur Leukocyte Esterase (Negative) 12/05/17 Range/Units 14:11 WBC (3.8-10.6) k/uL RBC (4.30-5.90) m/uL Hgb (13.0-17.5) gm/dL Hct (39.0-53.0) % MCV (80.0-100.0) fL MCH (25.0-35.0) pg MCHC (31.0-37.0) g/dL RDW (11.5-15.5) % Plt Count (150-450) k/uL Neutrophils % % Lymphocytes % % Monocytes % % Eosinophils % % Basophils % % Neutrophils # (1.3-7.7) k/uL Lymphocytes # (1.0-4.8) k/uL Monocytes # (0-1.0) k/uL Eosinophils # (0-0.7) k/uL Basophils # (0-0.2) k/uL Manual Slide Review Poikilocytosis Anisocytosis Macrocytosis PT (9.0-12.0) sec INR (<1.2) APTT (22.0-30.0) sec Sodium (137-145) mmol/L Potassium (3.5-5.1) mmol/L Chloride (98-107) mmol/L Carbon Dioxide (22-30) mmol/L Anion Gap mmol/L BUN (9-20) mg/dL Creatinine (0.66-1.25) mg/dL Est GFR (CKD-EPI)AfAm (>60 ml/min/1.73 sqM) Est GFR (CKD-EPI)NonAf (>60 ml/min/1.73 sqM) Glucose (74-99) mg/dL Calcium (8.4-10.2) mg/dL Total Bilirubin (0.2-1.3) mg/dL AST (17-59) U/L ALT (21-72) U/L Alkaline Phosphatase (38-126) U/L Total Protein (6.3-8.2) g/dL Albumin (3.5-5.0) g/dL Amylase (30-110) U/L Lipase (23-300) U/L Urine Color Yellow Urine Appearance Clear (Clear) Urine pH 6.0 (5.0-8.0) Ur Specific Kennan 1.012 (1.001-1.035) Urine Protein Trace H (Negative) Urine Glucose (UA) Negative (Negative) Urine Ketones Negative (Negative) Urine Blood Negative (Negative) Urine Nitrite Negative (Negative) Urine Bilirubin Negative (Negative) Urine Urobilinogen <2.0 (<2.0) mg/dL Ur Leukocyte Esterase Negative (Negative) - Radiology Data Radiology results: report reviewed CT abdomen and pelvis with contrast impression: Hepatosplenomegaly, liver with fatty infiltration measuring 24 cm and spleen measuring 21.3 cm. Clinically correlate. 2. Mild sigmoid diverticulosis. No convincing evidence of acute diverticulitis. 3. Circumferential bladder wall thickening could represent cystitis or chronic bladder wall hypertrophy. 4. Mild diffuse anasarca type change. 5. A focal soft tissue density in the subcutaneous fat of the right buttock. This could represent injury with bruising. Correlate with physical exam findings. Disposition Clinical Impression: Bladder wall thickening, Bowel habit changes, Sigmoid diverticulosis, Hepatosplenomegaly Disposition: HOME SELF-CARE Condition: Good Instructions: Chronic Diarrhea (ED) Additional Instructions: As discussed, please follow-up with Dr. Prieto, urology for further evaluation of lateral wall thickening. Please also follow-up with Dr. Larsen, gastroenterology for further evaluation of bowel pattern changes. Please follow up with primary care provider within 1-2 days. Return to emergency department if symptoms should worsen or any concerns arise. Is patient prescribed a controlled substance at d/c from ED?: No Referrals: Lucia Light DO [Primary Care Provider] - 1-2 days Time of Disposition: 17:11
[2017-12-05 14:25] LABS: Appearance,Urine Clear (Clear); Bilirubin,Urine Negative (Negative); Blood,Urine Negative (Negative); Color,Urine Yellow; Glucose,Urine (UA) Negative (Negative); Ketones,Urine Negative (Negative); Leukocyte Esterase,Urine Negative (Negative); Nitrite,Urine Negative (Negative); Protein,Urine Trace (Negative); Specific Gravity,Urine 1.012 (1.001-1.035); Urobilinogen,Urine <2.0 mg/dL (<2.0)
[2017-12-05 14:33] LABS: INR 1.2 (<1.2); Partial Thromboplastin Time 22.8 sec (22.0-30.0); Prothrombin Time 11.1 sec (9.0-12.0)
[2017-12-05 14:34] LABS: Anisocytosis Slight; Basophils % (A) 1 %; Eosinophils # (A) 0.1 k/uL (0-0.7); Eosinophils % (A) 3 %; HCT 34.1 % (39.0-53.0); Lymphocytes # (A) 0.7 k/uL (1.0-4.8); Lymphocytes % (A) 22 %; MCH 36.5 pg (25.0-35.0); MCHC 32.3 g/dL (31.0-37.0); MCV 112.9 fL (80.0-100.0); Macrocytosis Marked; Mean Platelet Volume 7.5; Monocytes # (A) 0.2 k/uL (0-1.0); Monocytes % (A) 6 %; Neutrophils # (A) 1.9 k/uL (1.3-7.7); Neutrophils % (A) 66 %; Platelet Count 149 k/uL (150-450); Poikilocytosis Slight; RBC 3.02 m/uL (4.30-5.90); RDW 16.7 % (11.5-15.5); WBC 2.9 k/uL (3.8-10.6)
[2017-12-05 14:41] LABS: ALT 48 U/L (21-72); AST 60 U/L (17-59); Albumin 3.6 g/dL (3.5-5.0); Alkaline Phosphatase 105 U/L (38-126); Amylase 39 U/L (30-110); Anion Gap 8 mmol/L; Blood Urea Nitrogen 6 mg/dL (9-20); Calcium 8.8 mg/dL (8.4-10.2); Carbon Dioxide 27 mmol/L (22-30); Chloride 101 mmol/L (98-107); Glucose 107 mg/dL (74-99); Lipase 155 U/L (23-300); Potassium 3.8 mmol/L (3.5-5.1); Sodium 136 mmol/L (137-145); Total Bilirubin 1.9 mg/dL (0.2-1.3); Total Protein 5.9 g/dL (6.3-8.2)
--- NOTE | 2017-12-05 15:50 | CT ---
EXAMINATION TYPE: CT abdomen pelvis w con DATE OF EXAM: 12/05/2017 COMPARISON: NONE HISTORY: 62-year-old male Bowel incontinence x few months. TECHNIQUE: Contiguous axial scanning of the abdomen and pelvis following administration of 100 ml Iso tessa 300 IV contrast. Delayed images through the kidneys and coronal/sagittal reconstructions perform ed. CT DLP: 2625.2 mGycm Automated exposure control for dose reduction was used. FINDINGS: Heart upper limits of normal in size without pericardial effusion. Strandy atelectasis basilar right middle lobe. No pleural effusion. Liver enlarged measuring 23.9 cm with low-attenuation. No focal lesion is seen. Portal venous system is patent. No biliary ductal dilatation. Gallbladder, adrenal glands, right kidney, and pancreas show no gross abnormality. Spleen is enlarged measuring 21.3 cm on coronal series. Exophytic 1.1 cm hypodense lesion anterior left kidney too small fractured CT characterization, likel y cyst. No dilated small bowel, free fluid, or free air. A couple prominent peripancreatic and portacaval lymph nodes measure 9 mm and 1.0 cm, respectively, p robably reactive/post inflammatory. Otherwise, no mesenteric or retroperitoneal lymphadenopathy. Mild sigmoid diverticulosis. No significant stool burden. Some mild strandy edema is present througho ut the intra-abdominal fat. Some dependent edema is also present along the posterior midline cutaneou s fat. There is more focal soft tissue density in the subcutaneous fat of the right buttock, axial image 86. Circumferential bladder wall thickening with incomplete distention. Pelvic phleboliths. Prostate glan d mildly enlarged at 4.3 cm wide. No abnormal fluid collection in the pelvis or pelvic lymphadenopath y seen. Bones: Degenerative changes mid to lower lumbar spine. Fatty matrix hemangioma L2 vertebral body. No osseous destructive process. IMPRESSION: 1. HEPATOSPLENOMEGALY (LIVER WITH FATTY INFILTRATION MEASURING 24 CM AND SPLEEN MEASURING 21.3 CM). C LINICALLY CORRELATE. 2. MILD SIGMOID DIVERTICULOSIS. NO CONVINCING EVIDENCE OF ACUTE DIVERTICULITIS. 3. CIRCUMFERENTIAL BLADDER WALL THICKENING COULD REPRESENT CYSTITIS OR CHRONIC BLADDER WALL HYPERTROP HY. 4. MILD DIFFUSE ANASARCA-TYPE CHANGE. 5. FOCAL SOFT TISSUE DENSITY IN THE SUBCUTANEOUS FAT OF THE RIGHT BUTTOCK. THIS COULD REPRESENT INJUR Y WITH BRUISING. CORRELATE WITH PHYSICAL EXAM FINDINGS.
[2017-12-05 17:20] VITALS: BP 119/69; PULSE 61; RESP 16; TEMP 98.1
== END 2017-12-05 17:25 | disposition home or self-care (01) ==
LOC: EC 12:47
DX: K57.90 Diverticulosis of intestine, part unspecified, without perforation or abscess without bleeding (principal); N32.89 Other specified disorders of bladder; R19.4 Change in bowel habit; R16.2 Hepatomegaly with splenomegaly, not elsewhere classified; D61.818 Other pancytopenia; I48.91 Unspecified atrial fibrillation; I11.0 Hypertensive heart disease with heart failure; I50.9 Heart failure, unspecified; E07.9 Disorder of thyroid, unspecified; F17.200 Nicotine dependence, unspecified, uncomplicated; Z79.82 Long term (current) use of aspirin; Z79.899 Other long term (current) drug therapy; Z88.8 Allergy status to other drugs, medicaments and biological substances
CPT/HCPCS: 36415; 80053; 82150; 83690; 85025; 85610; 85730; 81003; 74177; 99284; Q9967

== ENCOUNTER 2018-08-04 01:41 | Emergency (ER) | payer MEDICARE ==
[2018-08-04 02:03] VITALS: TEMP 97.8
[2018-08-04 02:47] LABS: Albumin 3.4 g/dL (3.5-5.0); Anion Gap 5 mmol/L; Calcium 8.6 mg/dL (8.4-10.2); Carbon Dioxide 25 mmol/L (22-30); Chloride 103 mmol/L (98-107); Glucose 143 mg/dL (74-99); Sodium 133 mmol/L (137-145); Total Bilirubin 1.5 mg/dL (0.2-1.3); Total Protein 5.8 g/dL (6.3-8.2)
[2018-08-04 02:51] LABS: ALT 46 U/L (21-72); AST 60 U/L (17-59); Alkaline Phosphatase 142 U/L (38-126); Blood Urea Nitrogen 4 mg/dL (9-20); Potassium 3.9 mmol/L (3.5-5.1)
[2018-08-04 02:56] LABS: Anisocytosis Slight; HGB 10.8 gm/dL (13.0-17.5); MCH 37.1 pg (25.0-35.0); MCHC 33.7 g/dL (31.0-37.0); MCV 110.1 fL (80.0-100.0); Macrocytosis Marked; Mean Platelet Volume 8.2; Platelet Count 101 k/uL (150-450); Poikilocytosis Slight; RBC 2.91 m/uL (4.30-5.90); RDW 16.3 % (11.5-15.5); WBC 2.2 k/uL (3.8-10.6)
[2018-08-04 03:36] LABS: Band Neutrophils % 7 %; Eosinophils # (M) 0.04 k/uL (0-0.7); Metamyelocytes # (M) 0.02 k/uL (0); Metamyelocytes % 1 %; Neutrophils % (M) 49 %; Nucleated Red Blood Cells 0 /100 WBC (0-0); Total Cells Counted 100
--- NOTE | 2018-08-04 04:40 | CT ---
EXAM: CT Angiography Head Without And With Intravenous Contrast CLINICAL HISTORY: Dizziness. Reason: Pain TECHNIQUE: Axial computed tomographic angiography images of the head without and with intravenous contrast using CT angiography protocol. CTDI is 133.07 mGy and DLP is 2733.8 mGy-cm. This CT exam was performed using one or more of the following dose reduction techniques: automated exposure control, adjustment of the mA and/or kV according to patient size, and/or use of iterative reconstruction technique. MIP reconstructed images were created and reviewed. Coronal and sagittal reformatted images were created and reviewed. COMPARISON: No relevant prior studies available. FINDINGS: VASCULATURE: Right internal carotid artery: Atherosclerosis. No acute findings. Intracranial segment is patent with no significant stenosis. No aneurysm. Right anterior cerebral artery: Unremarkable. No occlusion or significant stenosis. No aneurysm. Right middle cerebral artery: Unremarkable. No occlusion or significant stenosis. No aneurysm. Right posterior cerebral artery: type right SPRAY II PAINTER. No occlusion or significant stenosis. No aneurysm. Right vertebral artery: Dominant right vertebral artery. Left internal carotid artery: Atherosclerosis. No acute findings. Intracranial segment is patent with no significant stenosis. No aneurysm. Left anterior cerebral artery: Unremarkable. No occlusion or significant stenosis. No aneurysm. Left middle cerebral artery: Unremarkable. No occlusion or significant stenosis. No aneurysm. Left posterior cerebral artery: Hypoplastic left P1 segment of the SPRAY II PAINTER. No occlusion or significant stenosis. No aneurysm. Left vertebral artery: Unremarkable as visualized. Basilar artery: Mildly diminutive basilar artery secondary to dominant anterior sacculation. Mild multifocal stenosis. No aneurysm. HEAD: Brain: Mild chronic small vessel ischemic change. No hemorrhage. No mass effect or edema. Ventricles: Unremarkable. No ventriculomegaly. Bones/joints: No acute fracture. Soft tissues: Unremarkable. Sinuses: Moderate mucosal thickening of the left sphenoid sinus. Moderate opacification of bilateral ethmoid air cells. Mild mucosal thickening of the maxillary sinuses. Mastoid air cells: Bilateral small mastoid effusions. IMPRESSION: 1. Mildly diminutive basilar artery secondary to dominant anterior sacculation. Mild multifocal stenosis. Variant anatomy as described. No large vessel occlusion. 2. Mild chronic small vessel ischemic change. 3. Moderate paranasal sinus disease. 4. Bilateral small mastoid effusions. <MYCVCSECTION> Critical Value Communications 08/04/18 04:27 Call From [facility] on 08/04 04:23 (-04:00)
[2018-08-04 04:43] VITALS: BP 136/80
[2018-08-04] MEDS ORDERED: MECLIZINE 12.5 MG TAB PO STA (06:42)
--- NOTE | 2018-08-04 06:42 | ED ---
Dizziness HPI - General Chief Complaint: Dizziness Stated Complaint: Dizziness Time Seen by Provider: 08/04/18 02:09 Source: patient, EMS Mode of arrival: EMS - History of Present Illness MD Complaint: dizziness -: hour(s) Timing: sudden onset Description: "room spinning" History of Same: No History of Trauma: No Severity: moderate Improves With: remaining still Worsens With: movement Associated Symptoms: denies other symptoms - Related Data Home Medications Medication Instructions Recorded Confirmed Aspirin 81 mg PO DAILY 07/05/17 08/04/18 HYDROcodone/APAP 10-325MG [[place] 1 tab PO TID PRN 07/05/17 08/04/18 10-325] Levothyroxine Sodium [Synthroid] 75 mcg PO DAILY 07/05/17 08/04/18 Lisinopril [Zestril] 40 mg PO DAILY 07/05/17 08/04/18 Nadolol [Corgard] 20 mg PO DAILY 07/05/17 08/04/18 amLODIPine [Norvasc] 10 mg PO DAILY 07/05/17 08/04/18 Esomeprazole Magnesium [NexIUM] 20 mg PO DAILY 08/04/18 08/04/18 lamoTRIgine [LaMICtal] 50 mg PO HS 08/04/18 08/04/18 Previous Rx's Medication Instructions Recorded Amoxicillin/Potassium Clav 1 tab PO Q12HR #14 tab 08/04/18 [Augmentin 875-125 Tablet] Meclizine [Antivert] 25 mg PO TID PRN #15 tab 08/04/18 Allergies Allergy/AdvReac Type Severity Reaction Status Date / Time cholesterol meds AdvReac See Uncoded 12/05/17 13:01 comments Review of Systems ROS Statement: Those systems with pertinent positive or pertinent negative responses have been documented in the HPI. ROS Other: All systems not noted in ROS Statement are negative. Constitutional: Denies: fever, chills, weakness Eyes: Denies: vision change ENT: Denies: ear pain Respiratory: Denies: cough, dyspnea Cardiovascular: Denies: chest pain, palpitations, orthopnea, edema Gastrointestinal: Reports: nausea. Denies: abdominal pain, vomiting, diarrhea Genitourinary: Denies: dysuria, hematuria Musculoskeletal: Denies: back pain Skin: Denies: rash Neurological: Denies: headache, weakness, numbness Past Medical History Past Medical History: Atrial Fibrillation, Heart Failure, Hypertension, Thyroid Disorder Additional Past Medical History / Comment(s): Recent sinus infection/congestion tx with antibiotics, chronic pain low back, spinal stenosis, lumbago, arthritis multiple joints, past elevated LFTs, past Dimas's palsey. History of Any Multi-Drug Resistant Organisms: None Reported Past Surgical History: Hernia Repair Additional Past Surgical History / Comment(s): Abdominal hernia repair, R thigh fatty tumor removed, colonoscopies, epidural injections low back. Past Anesthesia/Blood Transfusion Reactions: No Reported Reaction Past Psychological History: No Psychological Hx Reported Smoking Status: Current every day smoker Past Alcohol Use History: Daily Past Drug Use History: None Reported General Exam General appearance: alert, in no apparent distress Head exam: Present: atraumatic, normocephalic Eye exam: Present: normal appearance, nystagmus. Absent: PERRL, EOMI, scleral icterus, conjunctival injection ENT exam: Present: normal oropharynx Neck exam: Present: normal inspection Respiratory exam: Present: normal lung sounds bilaterally. Absent: respiratory distress, wheezes, rales, rhonchi, stridor Cardiovascular Exam: Present: regular rate, normal rhythm, normal heart sounds. Absent: systolic murmur, diastolic murmur, rubs, gallop GI/Abdominal exam: Present: soft. Absent: distended, tenderness, guarding, rebound, mass Extremities exam: Present: normal inspection, normal capillary refill. Absent: pedal edema, calf tenderness Back exam: Present: normal inspection Neurological exam: Present: alert, oriented X3, CN II-XII intact. Absent: motor sensory deficit Skin exam: Present: warm, dry, intact, normal color. Absent: rash Course Vital Signs 08/04/18 08/04/18 08/04/18 01:53 01:57 02:00 Temperature 97.8 F Pulse Rate 66 66 Respiratory 18 15 Rate Blood Pressure 138/74 138/74 138/74 O2 Sat by Pulse 96 96 Oximetry 08/04/18 08/04/18 04:30 05:00 Temperature Pulse Rate 61 64 Respiratory 17 9 L Rate Blood Pressure 136/80 136/80 O2 Sat by Pulse Oximetry EKG Findings - EKG Results: EKG: interpreted by ERMD, sinus rhythm (Rate 65 bpm), normal axis, normal QRS - Blocks, [place], Hypertrophy, ST Abn: Repolarization changes or abnormalities: nonspecific abnormality, ST segment, and/or T wave Medical Decision Making - Medical Decision Making Patient is 62-year-old man presenting with vertiginous symptoms that started acutely tonight. Given risk factors, he is sent for computed tomography scan to rule out vertebrobasilar insufficiency. Otherwise the patient's workup is normal. He does feel better following medication and like to go home. Discussed appropriate further care and follow-up with the patient and will provide meclizine for the vertigo. - Lab Data Result diagrams: 08/04/18 01:56 08/04/18 01:56 Lab Results 08/04/18 08/04/18 08/04/18 Range/Units 01:56 01:56 01:56 WBC 2.2 L (3.8-10.6) k/uL RBC 2.91 L (4.30-5.90) m/uL Hgb 10.8 L (13.0-17.5) gm/dL Hct 32.0 L (39.0-53.0) % MCV 110.1 H (80.0-100.0) fL MCH 37.1 H (25.0-35.0) pg MCHC 33.7 (31.0-37.0) g/dL RDW 16.3 H (11.5-15.5) % Plt Count 101 L (150-450) k/uL Neutrophils % (Manual) 49 % Band Neutrophils % 7 % Lymphocytes % (Manual) 32 % Monocytes % (Manual) 9 % Eosinophils % (Manual) 2 % Metamyelocytes % 1 % Neutrophils # (Manual) 1.20 L (1.3-7.7) k/uL Lymphocytes # (Manual) 0.70 L (1.0-4.8) k/uL Monocytes # (Manual) 0.20 (0-1.0) k/uL Eosinophils # (Manual) 0.04 (0-0.7) k/uL Metamyelocytes # (Man) 0.02 H (0) k/uL Nucleated RBCs 0 (0-0) /100 WBC Manual Slide Review Performed Poikilocytosis Slight Anisocytosis Slight Macrocytosis Marked Sodium 133 L (137-145) mmol/L Potassium 3.9 (3.5-5.1) mmol/L Chloride 103 (98-107) mmol/L Carbon Dioxide 25 (22-30) mmol/L Anion Gap 5 mmol/L BUN 4 L (9-20) mg/dL Creatinine 0.59 L (0.66-1.25) mg/dL Est GFR (CKD-EPI)AfAm >90 (>60 ml/min/1.73 sqM) Est GFR (CKD-EPI)NonAf >90 (>60 ml/min/1.73 sqM) Glucose 143 H (74-99) mg/dL Calcium 8.6 (8.4-10.2) mg/dL Total Bilirubin 1.5 H (0.2-1.3) mg/dL AST 60 H (17-59) U/L ALT 46 (21-72) U/L Alkaline Phosphatase 142 H (38-126) U/L Troponin I <0.012 (0.000-0.034) ng/mL Total Protein 5.8 L (6.3-8.2) g/dL Albumin 3.4 L (3.5-5.0) g/dL Disposition Clinical Impression: Vertigo Disposition: HOME SELF-CARE Condition: Fair Instructions (If sedation given, give patient instructions): Dizziness (ED) Prescriptions: Meclizine [Antivert] 25 mg PO TID PRN #15 tab PRN Reason: Vertigo Amoxicillin/Potassium Clav [Augmentin 875-125 Tablet] 1 tab PO Q12HR #14 tab Is patient prescribed a controlled substance at d/c from ED?: No Referrals: Lucia Light DO [Primary Care Provider] - 1-2 days
[2018-08-04 06:58] VITALS: PULSE 64; RESP 9
== END 2018-08-04 08:00 | disposition home or self-care (01) ==
LOC: EC 01:41
DX: H55.00 Unspecified nystagmus (principal); I11.0 Hypertensive heart disease with heart failure; I50.9 Heart failure, unspecified; E07.9 Disorder of thyroid, unspecified; M19.90 Unspecified osteoarthritis, unspecified site; F17.200 Nicotine dependence, unspecified, uncomplicated; Z88.8 Allergy status to other drugs, medicaments and biological substances; Z79.82 Long term (current) use of aspirin; Z79.890 Hormone replacement therapy; Z79.899 Other long term (current) drug therapy
CPT/HCPCS: 36415; 93005; 80053; 84484; 85025; 70496; 99285; Q9967

== ENCOUNTER 2020-03-17 22:28 | Emergency (ER) | payer MEDICARE, BC ==
[2020-03-17 22:36] VITALS: RESP 16
--- NOTE | 2020-03-17 22:45 | ED ---
Arrhythmia/Palpitations HPI - General Chief Complaint: Arrhythmia/Palpitations Stated Complaint: Chest Pain Time Seen by Provider: 03/17/20 22:43 Source: patient, EMS Mode of arrival: EMS Limitations: no limitations - History of Present Illness Initial Comments: This patient is 64-year-old man who presents to be evaluated for palpitations. The patient states that he has been having this problem going back years, but in reference to today he started having a flareup about 3 days ago again. The patient states that it is preventing him from sleeping. He notes that his heart seems to be beating irregularly and it seems to pound in his chest. He denies pain although he feels it pound against the side of his chest. No anginal type symptoms including no dyspnea, diaphoresis, nausea or vomiting. No lightheadedness or syncope. The patient states she has been seen here for this previously and also has been seen by his physician who did arrange 24-hour Holter quite some time ago. He has not seen cardiology. Patient has not noted anything that makes the symptoms worse, other than it seems to bother him more at night. He states that previously he had taken Xanax that seemed to help MD Complaint: irregular heart beat -: days(s) Context: occurred during rest Associated Symptoms: anxiety - Related Data Home Medications Medication Instructions Recorded Confirmed Aspirin 81 mg PO DAILY 07/05/17 03/17/20 HYDROcodone/APAP 10-325MG [[place] 1 tab PO QID PRN 07/05/17 03/17/20 10-325] Levothyroxine Sodium [Synthroid] 75 mcg PO DAILY 07/05/17 03/17/20 amLODIPine [Norvasc] 10 mg PO DAILY 07/05/17 03/17/20 lisinopriL [Zestril] 40 mg PO DAILY 07/05/17 03/17/20 nadoloL [Corgard] 20 mg PO DAILY 07/05/17 03/17/20 Cetirizine HCl 10 mg PO DAILY PRN 03/17/20 03/17/20 Montelukast Sodium [Singulair] 10 mg PO HS PRN 03/17/20 03/17/20 Omeprazole 20 mg PO DAILY 03/17/20 03/17/20 Previous Rx's Medication Instructions Recorded ALPRAZolam [Xanax] 0.5 mg PO HS PRN #12 tab 12/08/20 Allergies Allergy/AdvReac Type Severity Reaction Status Date / Time cholesterol meds AdvReac See Uncoded 03/17/20 22:36 comments Review of Systems ROS Statement: Those systems with pertinent positive or pertinent negative responses have been documented in the HPI. ROS Other: All systems not noted in ROS Statement are negative. Constitutional: Denies: fever, chills Respiratory: Denies: cough, dyspnea Cardiovascular: Reports: palpitations. Denies: chest pain, orthopnea, edema, syncope Gastrointestinal: Denies: abdominal pain, nausea, vomiting Genitourinary: Denies: dysuria, frequency Musculoskeletal: Denies: back pain Skin: Denies: rash Neurological: Denies: headache, weakness, confusion Psychiatric: Reports: anxiety Past Medical History Past Medical History: Atrial Fibrillation, Heart Failure, Hypertension, Thyroid Disorder Additional Past Medical History / Comment(s): Recent sinus infection/congestion tx with antibiotics, chronic pain low back, spinal stenosis, lumbago, arthritis multiple joints, past elevated LFTs, past Dimas's palsey. History of Any Multi-Drug Resistant Organisms: None Reported Past Surgical History: Hernia Repair Additional Past Surgical History / Comment(s): Abdominal hernia repair, R thigh fatty tumor removed, colonoscopies, epidural injections low back. Past Anesthesia/Blood Transfusion Reactions: No Reported Reaction Past Psychological History: No Psychological Hx Reported Smoking Status: Current every day smoker Past Alcohol Use History: Daily Past Drug Use History: None Reported General Exam Limitations: no limitations General appearance: alert, in no apparent distress Head exam: Present: atraumatic, normocephalic Eye exam: Present: normal appearance. Absent: scleral icterus, conjunctival injection ENT exam: Present: normal oropharynx Neck exam: Present: normal inspection Respiratory exam: Present: normal lung sounds bilaterally. Absent: respiratory distress, wheezes, rales, rhonchi, stridor Cardiovascular Exam: Present: regular rate, normal rhythm, normal heart sounds. Absent: systolic murmur, diastolic murmur, rubs, gallop GI/Abdominal exam: Present: soft. Absent: distended, tenderness, guarding, rebound, rigid, mass Extremities exam: Present: normal inspection, normal capillary refill. Absent: pedal edema, calf tenderness Back exam: Present: normal inspection. Absent: CVA tenderness (R), CVA tenderness (L) Neurological exam: Present: alert Skin exam: Present: warm, dry, intact, normal color. Absent: rash Course Vital Signs 03/17/20 03/17/20 03/18/20 22:29 23:00 00:00 Temperature 98.6 F Pulse Rate 68 61 65 Respiratory 16 16 16 Rate Blood Pressure 143/74 154/79 136/79 O2 Sat by Pulse 100 99 97 Oximetry 03/18/20 01:00 Temperature Pulse Rate 55 L Respiratory 16 Rate Blood Pressure 128/69 O2 Sat by Pulse 99 Oximetry EKG Findings - EKG Results: EKG: interpreted by ERMD, sinus rhythm (With first-degree AV block, rate 64 bpm), normal axis, normal QRS, normal ST/T - Blocks, [place], Hypertrophy, ST Abn: AV and intraventricular conduction: 1 AV block Medical Decision Making - Lab Data Result diagrams: 03/17/20 22:56 03/17/20 22:56 Lab Results 03/17/20 03/17/20 03/17/20 Range/Units 00:10 22:56 22:56 WBC 2.6 L (3.8-10.6) k/uL RBC 3.74 L (4.30-5.90) m/uL Hgb 11.9 L (13.0-17.5) gm/dL Hct 36.8 L (39.0-53.0) % MCV 98.6 (80.0-100.0) fL MCH 31.9 (25.0-35.0) pg MCHC 32.4 (31.0-37.0) g/dL RDW 15.6 H (11.5-15.5) % Plt Count 122 L (150-450) k/uL MPV 8.0 Neutrophils % 50 % Lymphocytes % 29 % Monocytes % 7 % Eosinophils % 9 % Basophils % 1 % Neutrophils # 1.3 (1.3-7.7) k/uL Lymphocytes # 0.8 L (1.0-4.8) k/uL Monocytes # 0.2 (0-1.0) k/uL Eosinophils # 0.2 (0-0.7) k/uL Basophils # 0.0 (0-0.2) k/uL Macrocytosis Slight PT 11.1 (9.0-12.0) sec INR 1.1 (<1.2) APTT 25.9 (22.0-30.0) sec Sodium (137-145) mmol/L Potassium (3.5-5.1) mmol/L Chloride (98-107) mmol/L Carbon Dioxide (22-30) mmol/L Anion Gap mmol/L BUN (9-20) mg/dL Creatinine (0.66-1.25) mg/dL Est GFR (CKD-EPI)AfAm (>60 ml/min/1.73 sqM) Est GFR (CKD-EPI)NonAf (>60 ml/min/1.73 sqM) Glucose (74-99) mg/dL Calcium (8.4-10.2) mg/dL Magnesium (1.6-2.3) mg/dL Total Bilirubin (0.2-1.3) mg/dL AST (17-59) U/L ALT (4-49) U/L Alkaline Phosphatase (38-126) U/L Troponin I (0.000-0.034) ng/mL Total Protein (6.3-8.2) g/dL Albumin (3.5-5.0) g/dL TSH (0.465-4.680) mIU/L Urine Color Yellow Urine Appearance Clear (Clear) Urine pH 6.0 (5.0-8.0) Ur Specific [place] 1.006 (1.001-1.035) Urine Protein Negative (Negative) Urine Glucose (UA) Negative (Negative) Urine Ketones Negative (Negative) Urine Blood Negative (Negative) Urine Nitrite Negative (Negative) Urine Bilirubin Negative (Negative) Urine Urobilinogen <2.0 (<2.0) mg/dL Ur Leukocyte Esterase Negative (Negative) 03/17/20 03/17/20 Range/Units 22:56 22:56 WBC (3.8-10.6) k/uL RBC (4.30-5.90) m/uL Hgb (13.0-17.5) gm/dL Hct (39.0-53.0) % MCV (80.0-100.0) fL MCH (25.0-35.0) pg MCHC (31.0-37.0) g/dL RDW (11.5-15.5) % Plt Count (150-450) k/uL MPV Neutrophils % % Lymphocytes % % Monocytes % % Eosinophils % % Basophils % % Neutrophils # (1.3-7.7) k/uL Lymphocytes # (1.0-4.8) k/uL Monocytes # (0-1.0) k/uL Eosinophils # (0-0.7) k/uL Basophils # (0-0.2) k/uL Macrocytosis PT (9.0-12.0) sec INR (<1.2) APTT (22.0-30.0) sec Sodium 134 L (137-145) mmol/L Potassium 3.3 L (3.5-5.1) mmol/L Chloride 98 (98-107) mmol/L Carbon Dioxide 30 (22-30) mmol/L Anion Gap 6 mmol/L BUN 6 L (9-20) mg/dL Creatinine 0.72 (0.66-1.25) mg/dL Est GFR (CKD-EPI)AfAm >90 (>60 ml/min/1.73 sqM) Est GFR (CKD-EPI)NonAf >90 (>60 ml/min/1.73 sqM) Glucose 123 H (74-99) mg/dL Calcium 9.4 (8.4-10.2) mg/dL Magnesium 1.6 (1.6-2.3) mg/dL Total Bilirubin 1.3 (0.2-1.3) mg/dL AST 49 (17-59) U/L ALT 34 (4-49) U/L Alkaline Phosphatase 161 H (38-126) U/L Troponin I <0.012 (0.000-0.034) ng/mL Total Protein 6.7 (6.3-8.2) g/dL Albumin 4.3 (3.5-5.0) g/dL TSH 5.530 H (0.465-4.680) mIU/L Urine Color Urine Appearance (Clear) Urine pH (5.0-8.0) Ur Specific [place] (1.001-1.035) Urine Protein (Negative) Urine Glucose (UA) (Negative) Urine Ketones (Negative) Urine Blood (Negative) Urine Nitrite (Negative) Urine Bilirubin (Negative) Urine Urobilinogen (<2.0) mg/dL Ur Leukocyte Esterase (Negative) Disposition Clinical Impression: Palpitations Disposition: HOME SELF-CARE Condition: Good Instructions (If sedation given, give patient instructions): Heart Palpitations (ED) Additional Instructions: As we discussed, follow-up with the group therapist to see about having a Holter monitor. In the workup of palpitations, a sleep study also may be required, if the symptoms are dominantly occur while sleeping. Prescriptions: ALPRAZolam [Xanax] 0.5 mg PO HS PRN #12 tab PRN Reason: Insomnia Is patient prescribed a controlled substance at d/c from ED?: No Referrals: Lucia Light DO [Primary Care Provider] - 1-2 days Baltazar Zimmer MD [STAFF PHYSICIAN] - 1-2 days
--- NOTE | 2020-03-17 23:15 | XR ---
EXAMINATION TYPE: XR chest 2V DATE OF EXAM: 03/17/2020 COMPARISON: 07/05/2017 HISTORY: Chest pain. Dysrhythmia TECHNIQUE: FINDINGS: There is no heart failure nor confluent pneumonic infiltrate. Costophrenic angles are clear . There are chest leads. Bony thorax is intact. IMPRESSION: No active cardiopulmonary disease. Normal heart. No change.
[2020-03-17 23:16] LABS: ALT 34 U/L (4-49); AST 49 U/L (17-59); African American GFR (CKD) >90 (>60 ml/min/1.73 sqM); Albumin 4.3 g/dL (3.5-5.0); Alkaline Phosphatase 161 U/L (38-126); Anion Gap 6 mmol/L; Blood Urea Nitrogen 6 mg/dL (9-20); Calcium 9.4 mg/dL (8.4-10.2); Carbon Dioxide 30 mmol/L (22-30); Chloride 98 mmol/L (98-107); Glucose 123 mg/dL (74-99); Magnesium 1.6 mg/dL (1.6-2.3); Non-African American GFR(CKD) >90 (>60 ml/min/1.73 sqM); Potassium 3.3 mmol/L (3.5-5.1); Sodium 134 mmol/L (137-145); Total Bilirubin 1.3 mg/dL (0.2-1.3); Total Protein 6.7 g/dL (6.3-8.2)
[2020-03-17 23:32] LABS: Basophils % (A) 1 %; Eosinophils # (A) 0.2 k/uL (0-0.7); Eosinophils % (A) 9 %; HCT 36.8 % (39.0-53.0); HGB 11.9 gm/dL (13.0-17.5); Lymphocytes # (A) 0.8 k/uL (1.0-4.8); Lymphocytes % (A) 29 %; MCH 31.9 pg (25.0-35.0); MCHC 32.4 g/dL (31.0-37.0); MCV 98.6 fL (80.0-100.0); Macrocytosis Slight; Monocytes # (A) 0.2 k/uL (0-1.0); Monocytes % (A) 7 %; Neutrophils # (A) 1.3 k/uL (1.3-7.7); Neutrophils % (A) 50 %; Platelet Count 122 k/uL (150-450); RBC 3.74 m/uL (4.30-5.90); RDW 15.6 % (11.5-15.5); WBC 2.6 k/uL (3.8-10.6)
[2020-03-17 23:35] LABS: INR 1.1 (<1.2); Partial Thromboplastin Time 25.9 sec (22.0-30.0); Prothrombin Time 11.1 sec (9.0-12.0)
[2020-03-18 00:16] LABS: Appearance,Urine Clear (Clear); Bilirubin,Urine Negative (Negative); Blood,Urine Negative (Negative); Color,Urine Yellow; Glucose,Urine (UA) Negative (Negative); Ketones,Urine Negative (Negative); Leukocyte Esterase,Urine Negative (Negative); Nitrite,Urine Negative (Negative); Protein,Urine Negative (Negative); Specific Gravity,Urine 1.006 (1.001-1.035); Urobilinogen,Urine <2.0 mg/dL (<2.0)
[2020-03-18 01:21] VITALS: BP 128/69; PULSE 55
[2020-03-18 01:28] VITALS: TEMP 98.2
== END 2020-03-18 01:30 | disposition home or self-care (01) ==
LOC: EC 22:28
DX: R00.2 Palpitations (principal); R07.9 Chest pain, unspecified; I48.91 Unspecified atrial fibrillation; I11.0 Hypertensive heart disease with heart failure; E07.9 Disorder of thyroid, unspecified; F17.200 Nicotine dependence, unspecified, uncomplicated; Z79.82 Long term (current) use of aspirin; Z79.890 Hormone replacement therapy; Z79.899 Other long term (current) drug therapy; Z91.048 Other nonmedicinal substance allergy status
CPT/HCPCS: 36415; 71046; 80053; 81003; 83735; 84443; 84484; 85025; 85610; 85730; 93005; 99285

== ENCOUNTER 2020-03-23 00:01 | Observation (INO) | payer BC, MEDICARE ==
--- NOTE | 2020-03-23 00:19 | ED ---
Arrhythmia/Palpitations HPI - General Chief Complaint: Arrhythmia/Palpitations Stated Complaint: elevated HR Time Seen by Provider: 03/23/20 00:16 Source: patient, RN notes reviewed, old records reviewed Mode of arrival: wheelchair Limitations: no limitations - History of Present Illness Initial Comments: This is a 64-year-old male DF for evaluation palpitations chest pain rapid heart rate. Patient has been experiencing symptoms episodically. Unsure of cause is in the hospital delivered palpitations prior at that time he is fully abnormal heart rate. Patient is on blood thinners takes no medications for heart rate. Otherwise no recent travel history sick contacts fevers. No nausea vomiting or diarrhea. No recent illnesses, denies drug or alcohol abuse. MD Complaint: rapid heart beat, palpitations -: days(s) Context: occurred during rest, occurred during exertion Arrhythmia History: other (History of same symptoms with no diagnosis) Associated Symptoms: anxiety - Related Data Home Medications Medication Instructions Recorded Confirmed Aspirin 81 mg PO DAILY 07/05/17 03/17/20 HYDROcodone/APAP 10-325MG [[place] 1 tab PO QID PRN 07/05/17 03/17/20 10-325] Levothyroxine Sodium [Synthroid] 75 mcg PO DAILY 07/05/17 03/17/20 amLODIPine [Norvasc] 10 mg PO DAILY 07/05/17 03/17/20 lisinopriL [Zestril] 40 mg PO DAILY 07/05/17 03/17/20 nadoloL [Corgard] 20 mg PO DAILY 07/05/17 03/17/20 Cetirizine HCl 10 mg PO DAILY PRN 03/17/20 03/17/20 Montelukast Sodium [Singulair] 10 mg PO HS PRN 03/17/20 03/17/20 Omeprazole 20 mg PO DAILY 03/17/20 03/17/20 Previous Rx's Medication Instructions Recorded ALPRAZolam [Xanax] 0.5 mg PO HS PRN #12 tab 03/18/20 Allergies Allergy/AdvReac Type Severity Reaction Status Date / Time cholesterol meds AdvReac See Uncoded 03/23/20 00:14 comments Review of Systems ROS Statement: Those systems with pertinent positive or pertinent negative responses have been documented in the HPI. ROS Other: All systems not noted in ROS Statement are negative. Past Medical History Past Medical History: Atrial Fibrillation, Heart Failure, Hypertension, Thyroid Disorder Additional Past Medical History / Comment(s): Recent sinus infection/congestion tx with antibiotics, chronic pain low back, spinal stenosis, lumbago, arthritis multiple joints, past elevated LFTs, past Dimas's palsey. History of Any Multi-Drug Resistant Organisms: None Reported Past Surgical History: Hernia Repair Additional Past Surgical History / Comment(s): Abdominal hernia repair, R thigh fatty tumor removed, colonoscopies, epidural injections low back. Past Anesthesia/Blood Transfusion Reactions: No Reported Reaction Past Psychological History: No Psychological Hx Reported Smoking Status: Current every day smoker Past Alcohol Use History: Daily Past Drug Use History: None Reported General Exam Limitations: no limitations General appearance: alert, in no apparent distress, anxious Head exam: Present: atraumatic, normocephalic, normal inspection Eye exam: Present: normal appearance, PERRL, EOMI. Absent: scleral icterus, conjunctival injection, periorbital swelling ENT exam: Present: normal exam, mucous membranes moist Neck exam: Present: normal inspection. Absent: tenderness, meningismus, lymphadenopathy Respiratory exam: Present: normal lung sounds bilaterally. Absent: respiratory distress, wheezes, rales, rhonchi, stridor Cardiovascular Exam: Present: tachycardia, irregular rhythm, normal heart sounds. Absent: systolic murmur, diastolic murmur, rubs, gallop, clicks GI/Abdominal exam: Present: soft, normal bowel sounds. Absent: distended, tenderness, guarding, rebound, rigid Extremities exam: Present: normal inspection, full ROM, normal capillary refill. Absent: tenderness, pedal edema, joint swelling, calf tenderness Back exam: Present: normal inspection Neurological exam: Present: alert, oriented X3, CN II-XII intact Psychiatric exam: Present: normal affect, normal mood Skin exam: Present: warm, dry, intact, normal color. Absent: rash Course Vital Signs 03/23/20 03/23/20 03/23/20 00:12 00:15 01:00 Temperature 98.8 F Pulse Rate 43 L 96 Pulse Rate [ 131 H [employer] ] Respiratory 18 16 Rate Blood Pressure 178/119 110/79 O2 Sat by Pulse 92 L 96 Oximetry 03/23/20 03/23/20 03/23/20 01:51 01:57 02:00 Temperature Pulse Rate 73 96 84 Pulse Rate [ [employer] ] Respiratory 18 16 16 Rate Blood Pressure 108/73 100/66 95/53 O2 Sat by Pulse 96 Oximetry 03/23/20 02:20 Temperature Pulse Rate 75 Pulse Rate [ [employer] ] Respiratory 18 Rate Blood Pressure 108/66 O2 Sat by Pulse 96 Oximetry - Reevaluation(s) Reevaluation #1: 03/23/20 02:25 Medical record is reviewed Reevaluation #2: 03/23/20 02:25 Patient is exhibiting improved rate control on Cardizem Reevaluation #3: 03/23/20 02:26 Patient remains without pain Reevaluation #4: 03/23/20 02:26 Spoke with patient regarding findings, questions answered EKG Findings - EKG Comments: EKG Findings:: EKG A. fib 114 QRS 88 QTc 463 Medical Decision Making - Medical Decision Making 64 male who can admit for Onset atrial fibrillation with RVR, patient will be admitted for anticoagulation cardiology to evaluate - Lab Data Result diagrams: 03/23/20 00:27 03/23/20 00:27 Lab Results 03/23/20 03/23/20 03/23/20 Range/Units 00:27 00:27 00:27 WBC 2.7 L (3.8-10.6) k/uL RBC 4.07 L (4.30-5.90) m/uL Hgb 13.1 (13.0-17.5) gm/dL Hct 40.7 (39.0-53.0) % MCV 100.2 H (80.0-100.0) fL MCH 32.2 (25.0-35.0) pg MCHC 32.2 (31.0-37.0) g/dL RDW 15.7 H (11.5-15.5) % Plt Count 132 L (150-450) k/uL MPV 8.2 Neutrophils % (Manual) 39 % Lymphocytes % (Manual) 45 % Monocytes % (Manual) 12 % Eosinophils % (Manual) 4 % Neutrophils # (Manual) 1.05 L (1.3-7.7) k/uL Lymphocytes # (Manual) 1.22 (1.0-4.8) k/uL Monocytes # (Manual) 0.32 (0-1.0) k/uL Eosinophils # (Manual) 0.11 (0-0.7) k/uL Nucleated RBCs 0 (0-0) /100 WBC Manual Slide Review Performed Macrocytosis Slight PT 10.8 (9.0-12.0) sec INR 1.1 (<1.2) APTT 24.1 (22.0-30.0) sec Sodium 137 (137-145) mmol/L Potassium 3.8 (3.5-5.1) mmol/L Chloride 102 (98-107) mmol/L Carbon Dioxide 24 (22-30) mmol/L Anion Gap 11 mmol/L BUN 5 L (9-20) mg/dL Creatinine 0.65 L (0.66-1.25) mg/dL Est GFR (CKD-EPI)AfAm >90 (>60 ml/min/1.73 sqM) Est GFR (CKD-EPI)NonAf >90 (>60 ml/min/1.73 sqM) Glucose 116 H (74-99) mg/dL Calcium 9.2 (8.4-10.2) mg/dL Phosphorus 3.4 (2.5-4.5) mg/dL Magnesium 1.7 (1.6-2.3) mg/dL Total Bilirubin 1.2 (0.2-1.3) mg/dL AST 51 (17-59) U/L ALT 29 (4-49) U/L Alkaline Phosphatase 151 H (38-126) U/L Creatine Kinase 52 L (55-170) U/L Troponin I (0.000-0.034) ng/mL NT-Pro-B Natriuret Pep pg/mL Total Protein 7.0 (6.3-8.2) g/dL Albumin 4.4 (3.5-5.0) g/dL TSH 4.300 (0.465-4.680) mIU/L 03/23/20 03/23/20 Range/Units 00:27 00:27 WBC (3.8-10.6) k/uL RBC (4.30-5.90) m/uL Hgb (13.0-17.5) gm/dL Hct (39.0-53.0) % MCV (80.0-100.0) fL MCH (25.0-35.0) pg MCHC (31.0-37.0) g/dL RDW (11.5-15.5) % Plt Count (150-450) k/uL MPV Neutrophils % (Manual) % Lymphocytes % (Manual) % Monocytes % (Manual) % Eosinophils % (Manual) % Neutrophils # (Manual) (1.3-7.7) k/uL Lymphocytes # (Manual) (1.0-4.8) k/uL Monocytes # (Manual) (0-1.0) k/uL Eosinophils # (Manual) (0-0.7) k/uL Nucleated RBCs (0-0) /100 WBC Manual Slide Review Macrocytosis PT (9.0-12.0) sec INR (<1.2) APTT (22.0-30.0) sec Sodium (137-145) mmol/L Potassium (3.5-5.1) mmol/L Chloride (98-107) mmol/L Carbon Dioxide (22-30) mmol/L Anion Gap mmol/L BUN (9-20) mg/dL Creatinine (0.66-1.25) mg/dL Est GFR (CKD-EPI)AfAm (>60 ml/min/1.73 sqM) Est GFR (CKD-EPI)NonAf (>60 ml/min/1.73 sqM) Glucose (74-99) mg/dL Calcium (8.4-10.2) mg/dL Phosphorus (2.5-4.5) mg/dL Magnesium (1.6-2.3) mg/dL Total Bilirubin (0.2-1.3) mg/dL AST (17-59) U/L ALT (4-49) U/L Alkaline Phosphatase (38-126) U/L Creatine Kinase (55-170) U/L Troponin I <0.012 (0.000-0.034) ng/mL NT-Pro-B Natriuret Pep 735 pg/mL Total Protein (6.3-8.2) g/dL Albumin (3.5-5.0) g/dL TSH (0.465-4.680) mIU/L - Radiology Data Radiology results: report reviewed (Chest x-rays negative for acute disease), image reviewed Disposition Clinical Impression: Chest pain, Palpitations, Atrial fibrillation, Atrial fibrillation with RVR Disposition: ADMITTED IP TO THIS [facility] Condition: Good Is patient prescribed a controlled substance at d/c from ED?: No
[2020-03-23 00:53] LABS: ALT 29 U/L (4-49); AST 51 U/L (17-59); African American GFR (CKD) >90 (>60 ml/min/1.73 sqM); Albumin 4.4 g/dL (3.5-5.0); Alkaline Phosphatase 151 U/L (38-126); Anion Gap 11 mmol/L; Blood Urea Nitrogen 5 mg/dL (9-20); Calcium 9.2 mg/dL (8.4-10.2); Carbon Dioxide 24 mmol/L (22-30); Chloride 102 mmol/L (98-107); Creatine Kinase 52 U/L (55-170); Glucose 116 mg/dL (74-99); Magnesium 1.7 mg/dL (1.6-2.3); Non-African American GFR(CKD) >90 (>60 ml/min/1.73 sqM); Phosphorus 3.4 mg/dL (2.5-4.5); Potassium 3.8 mmol/L (3.5-5.1); Sodium 137 mmol/L (137-145); Total Bilirubin 1.2 mg/dL (0.2-1.3)
[2020-03-23] MEDS ORDERED: DILTIAZEM 5 MG/ML 5 ML VIAL IVP STA (01:00)
[2020-03-23 01:04] LABS: HCT 40.7 % (39.0-53.0); HGB 13.1 gm/dL (13.0-17.5); MCH 32.2 pg (25.0-35.0); MCHC 32.2 g/dL (31.0-37.0); MCV 100.2 fL (80.0-100.0); Macrocytosis Slight; Mean Platelet Volume 8.2; Platelet Count 132 k/uL (150-450); RBC 4.07 m/uL (4.30-5.90); RDW 15.7 % (11.5-15.5); WBC 2.7 k/uL (3.8-10.6)
[2020-03-23 01:07] LABS: INR 1.1 (<1.2); Partial Thromboplastin Time 24.1 sec (22.0-30.0); Prothrombin Time 10.8 sec (9.0-12.0)
--- NOTE | 2020-03-23 01:11 | XR ---
EXAM: XR Chest, 1 View CLINICAL HISTORY: ITS.REASON XR Reason: afib TECHNIQUE: Frontal view of the chest. COMPARISON: 03/17/2020 FINDINGS: Lungs: Minimal linear subsegmental changes at the left lung base overlying the cardiac silhouette. The lungs are otherwise well-aerated. The pulmonary vasculature is unremarkable. Pleural space: Unremarkable. No pneumothorax. No large pleural effusion. Heart: The cardiac silhouette is within normal limits. Mediastinum: No significant abnormality identified. The trachea is midline. Bones/joints: Unremarkable. IMPRESSION: Minimal linear subsegmental changes at the left lung base overlying the cardiac silhouette. The lungs are otherwise well-aerated. Primary consideration is subsegmental atelectasis. No pleural effusion or pneumothorax.
[2020-03-23 01:27] LABS: Eosinophils # (M) 0.11 k/uL (0-0.7); Lymphocytes # (M) 1.22 k/uL (1.0-4.8); Monocytes # (M) 0.32 k/uL (0-1.0); Neutrophils # (M) 1.05 k/uL (1.3-7.7); Neutrophils % (M) 39 %; Nucleated Red Blood Cells 0 /100 WBC (0-0); Total Cells Counted 100
[2020-03-23] MEDS ORDERED: METOPROLOL TARTRATE 5 MG/5 ML VIAL IVP STA (01:32)
[2020-03-23] MEDS ORDERED: HEPARIN SODIUM,PORCINE 5,000 UNIT/ML 1 ML VIAL IV ONE (01:34)
[2020-03-23] MEDS ORDERED: DILTIAZEM DRIP BOLUS FROM BAG 1 MG SOLN IV ONE (01:34)
[2020-03-23] MEDS ORDERED: HEPARIN SODIUM,PORCINE 5,000 UNIT/ML 1 ML VIAL IV PRN (01:34)
[2020-03-23] MEDS ORDERED: HEPARIN SOD,PORK IN 0.45% NACL 25,000 UNIT in 0.45% NACL 1 250ML.BAG IV SCH (01:45)
[2020-03-23] MEDS ORDERED: NITROGLYCERIN SL TABS 0.4 MG TAB SUBLINGUAL PRN (01:47)
[2020-03-23] MEDS ORDERED: SODIUM CHLORIDE 0.9% 1,000 ML IV SCH (02:00)
[2020-03-23] MEDS ORDERED: DILTIAZEM 125 MG in SODIUM CHLORIDE 0.9% 100 ML IV SCH (02:00)
[2020-03-23 03:27] VITALS: PULSE 58
[2020-03-23 08:34] VITALS: RESP 16; TEMP 98.4
[2020-03-23] MEDS ORDERED: amLODIPine 10 MG TAB PO SCH (09:15)
[2020-03-23] MEDS ORDERED: lisinopriL 20 MG TAB PO SCH (09:15)
[2020-03-23] MEDS: METOPROLOL TARTRATE 50 MG TAB PO SCH ×2 (09:39→09:43)
[2020-03-23 11:08] VITALS: BP 165/85
[2020-03-23] MEDS ORDERED: APIXABAN 5 MG TAB PO SCH (11:45)
--- NOTE | 2020-03-23 11:52 | P.CRDCN ---
History of Present Illness History of present illness: HISTORY OF PRESENTING ILLNESS This is a pleasant 64-year-old male past medical history significant for hypertension, daily alcohol intake and chronic nicotine dependence. He denies prior history of atrial fibrillation or coronary artery disease and does not follow regularly with a car hiker. He states he freely feels palpitations and has worn an outpatient her monitor for his primary care physician but has never been diagnosed with A. fib in the past. He presented to the hospital with symptoms of palpitations. EKG on arrival reveals atrial fibrillation with rapid ventricular response heart rate of 114. He was started on Cardizem infusion. He has converted to sinus mechanism and Cardizem has been discontinued. He is seen and examined sitting up in bed. He states his palpitations cited. He states he was quite symptomatic when he first came in. He denies chest pain, shortness of breath or dizziness. Currently maintained on aspirin 81 mg daily, amlodipine 10 mg daily, lisinopril 40 mg daily and nadolol 20 mg daily. Laboratory data reviewed, WBC 2.7, hemoglobin 13.1, platelets 132, sodium 137, potassium 3.8, creatinine 0.65, magnesium 1.7, cardiac enzymes negative 3, proBNP 735 and TSH 4.3. In 2018 he came to the hospital with atypical chest pain and underwent Lexiscan stress test and echocardiogram. The stress test was negative for reversible ischemia and the echocardiogram revealed preserved LV systolic function with ejection fraction 55-60%, mild aortic valve sclerosis and mild tricuspid regurgitation were noted at that time. REVIEW OF SYSTEMS At the time of my exam: CONSTITUTIONAL: Denies fever or chills. CARDIOVASCULAR: Denies chest pain, shortness of breath, orthopnea, PND or palpitations. RESPIRATORY: Denies cough. GASTROINTESTINAL: Denies abdominal pain, diarrhea, constipation, nausea or vomiting. MUSCULOSKELETAL: Denies myalgias. NEUROLOGIC: Denies numbness, tingling or weakness. ENDOCRINE: Denies fatigue, weight change, polydipsia or polyurina. GENITOURINARY: Denies burning, hematuria or urgency with micturation. HEMATOLOGIC: Denies history of anemia or bleeding. PHYSICAL EXAMINATION Blood pressure 173/72 heart rate 58 afebrile and maintaining oxygen saturation on room air. CONSTITUTIONAL: No apparent distress. HEENT: Head is normocephalic. Pupils are equal, round. Sclerae anicteric. Mucous membranes of the mouth are moist. No JVD. No carotid bruit. CHEST EXAMINATION: Lungs are clear to auscultation. No chest wall tenderness is noted on palpation or with deep breathing. Diminished bilaterally. HEART EXAMINATION: Regular rate and rhythm. S1, S2 heard. Soft systolic ejection murmur at the left sternal border and apex, no gallops or rub. ABDOMEN: Soft, nontender. Positive bowel sounds. EXTREMITIES: 2+ peripheral pulses, no lower extremity edema and no calf tenderness. NEUROLOGIC EXAMINATION: Patient is awake, alert and oriented x3. ASSESSMENT New onset paroxysmal atrial fibrillation with rapid ventricular rate, converted to sinus mechanism Hypertension Dyslipidemia Chronic nicotine dependence Daily alcohol intake Pancytopenia PLAN Resume lisinopril and amlodipine as previously ordered for hypertension. Continue nadolol at home dose. Recommend Eliquis 5 mg twice a day for thromboembolic protection. Stable for discharge from a cardiac perspective. We will do an echo in the office next week. He is sinus bradycardia currently, we will not add any further rate lowering agents. Thank you kindly for this consultation. Nurse Practitioner note has been reviewed, I agree with a documented findings and plan of care. Patient was seen and examined. Past Medical History Past Medical History: Atrial Fibrillation, Heart Failure, Hypertension, Thyroid Disorder Additional Past Medical History / Comment(s): Recent sinus infection/congestion tx with antibiotics, chronic pain low back, spinal stenosis, lumbago, arthritis multiple joints, past elevated LFTs, past Dimas's palsey. History of Any Multi-Drug Resistant Organisms: None Reported Past Surgical History: Hernia Repair Additional Past Surgical History / Comment(s): Abdominal hernia repair, R thigh fatty tumor removed, colonoscopies, epidural injections low back. Past Anesthesia/Blood Transfusion Reactions: No Reported Reaction Past Psychological History: No Psychological Hx Reported Additional Psychological History / Comment(s): Pt resides with his spouse of 42 yrs. He uses no assitive device. He drives. Pt states he has anxiety/depression and current medications do not work that well for him. He denies thoughts/plans of suicide. Pt states his xanax was taken away from him 2-3 months ago and that this has been a problem. Smoking Status: Current every day smoker Past Alcohol Use History: Daily Additional Past Alcohol Use History / Comment(s): Pt states he started smoking in 1974 and quit recently for 2 yrs then resumed smoking 4 months ago. He smokes less than a half pack a day. Pt states he used to drink alot of liqour but quit that a few years ago when his LFTs elevated. He states he drinks 6-8 beers a day and last drank yesterday. Past Drug Use History: None Reported Additional Drug Use History / Comment(s): Pt states he has tried marijuana in the past for pain control. Used on occasion. Medications and Allergies Home Medications Medication Instructions Recorded Confirmed Type Aspirin 81 mg PO DAILY 07/05/17 03/23/20 History HYDROcodone/APAP 10-325MG [[place] 1 tab PO QID PRN 07/05/17 03/23/20 History 10-325] Levothyroxine Sodium [Synthroid] 75 mcg PO DAILY 07/05/17 03/23/20 History amLODIPine [Norvasc] 10 mg PO DAILY 07/05/17 03/23/20 History lisinopriL [Zestril] 40 mg PO DAILY 07/05/17 03/23/20 History nadoloL [Corgard] 20 mg PO DAILY 07/05/17 03/23/20 History Cetirizine HCl 10 mg PO DAILY 03/17/20 03/23/20 History Montelukast Sodium [Singulair] 10 mg PO HS PRN 03/17/20 03/23/20 History Omeprazole 20 mg PO DAILY 03/17/20 03/23/20 History ALPRAZolam [Xanax] 0.5 mg PO HS PRN #12 tab 03/18/20 03/23/20 Rx Apixaban [Eliquis] 5 mg PO BID #180 tab 03/23/20 Rx Allergies Allergy/AdvReac Type Severity Reaction Status Date / Time cholesterol meds AdvReac See Uncoded 03/23/20 09:01 comments Physical Exam Vitals: Vital Signs Temp Pulse Pulse Resp BP BP Pulse Ox 03/23/20 08:33 98.4 F 58 L 16 173/72 99 03/23/20 03:00 98.7 F 58 L 18 116/71 96 03/23/20 02:20 75 18 108/66 96 03/23/20 02:00 84 16 95/53 03/23/20 01:57 96 16 100/66 96 03/23/20 01:51 73 18 108/73 03/23/20 01:00 96 16 110/79 96 03/23/20 00:15 131 H 03/23/20 00:12 98.8 F 43 L 18 178/119 92 L Intake and Output 03/22/20 03/23/20 03/23/20 22:59 06:59 14:59 Intake Total 75.886 Balance 75.886 Intake: Intake, IV Titration 75.886 Amount Heparin Sod,Pork in 0.45% 75.886 NaCl 25,000 unit In 0.45 % NaCl 1 250ml.bag @ 7.87 UNITS/KG/HR 9.985 mls/hr IV .Q24H [facility] Rx#: [id number] Other: # Voids 1 Weight 126.87 kg Results 03/23/20 00:27 03/23/20 00:27 Cardiac Enzymes 03/23/20 03/23/20 03/23/20 Range/Units 00:27 00:27 05:31 AST 51 (17-59) U/L Troponin I <0.012 0.012 (0.000-0.034) ng/mL 03/23/20 Range/Units 07:55 AST (17-59) U/L Troponin I <0.012 (0.000-0.034) ng/mL Coagulation 03/23/20 03/23/20 Range/Units 00:27 08:40 PT 10.8 (9.0-12.0) sec APTT 24.1 29.7 (22.0-30.0) sec CBC 03/23/20 Range/Units 00:27 WBC 2.7 L (3.8-10.6) k/uL RBC 4.07 L (4.30-5.90) m/uL Hgb 13.1 (13.0-17.5) gm/dL Hct 40.7 (39.0-53.0) % Plt Count 132 L (150-450) k/uL Comprehensive Metabolic Panel 03/23/20 Range/Units 00:27 Sodium 137 (137-145) mmol/L Potassium 3.8 (3.5-5.1) mmol/L Chloride 102 (98-107) mmol/L Carbon Dioxide 24 (22-30) mmol/L BUN 5 L (9-20) mg/dL Creatinine 0.65 L (0.66-1.25) mg/dL Glucose 116 H (74-99) mg/dL Calcium 9.2 (8.4-10.2) mg/dL AST 51 (17-59) U/L ALT 29 (4-49) U/L Alkaline Phosphatase 151 H (38-126) U/L Total Protein 7.0 (6.3-8.2) g/dL Albumin 4.4 (3.5-5.0) g/dL Current Medications Generic Name Dose Route Start Last Admin Trade Name Freq PRN Reason Stop Dose Admin Amlodipine Besylate 10 mg 03/23/20 09:15 Amlodipine 10 Mg Tab PO DAILY [facility] Aspirin 81 mg 03/24/20 09:00 Aspirin 81 Mg PO DAILY [facility] Heparin Sodium (Porcine) 0 unit 03/23/20 01:34 Heparin Sodium,Porcine 5,000 Unit/Ml 1 Ml Vial IV PER PROTOCOL PRN Low PTT Protocol Heparin Sodium/Sodium Chloride 250 mls @ 9.985 mls/hr 03/23/20 01:45 03/23/20 09:36 25,000 unit/ Sodium Chloride IV 10.87 units/kg/hr .Q24H [facility] 13.791 mls/hr Titration Protocol 7.87 UNITS/KG/HR Sodium Chloride 1,000 mls @ 100 mls/hr 03/23/20 02:00 03/23/20 01:57 Saline 0.9% IV 100 mls/hr .Q10H [facility]Y Administration Lisinopril 40 mg 03/23/20 09:15 03/23/20 09:39 Lisinopril 20 Mg Tab PO 40 mg DAILY [facility]Y Administration Metoprolol Tartrate 50 mg 03/23/20 09:00 03/23/20 09:43 Metoprolol Tartrate 50 Mg Tab PO 50 mg BID [facility]Y Administration Nitroglycerin 0.4 mg 03/23/20 01:47 Nitroglycerin Sl Tabs 0.4 Mg Tab SUBLINGUAL Q5M PRN Chest Pain Intake and Output 03/22/20 03/23/20 03/23/20 22:59 06:59 14:59 Intake Total 75.886 Balance 75.886 Intake: Intake, IV Titration 75.886 Amount Heparin Sod,Pork in 0.45% 75.886 NaCl 25,000 unit In 0.45 % NaCl 1 250ml.bag @ 7.87 UNITS/KG/HR 9.985 mls/hr IV .Q24H [facility] Rx#: [id number] Other: # Voids 1 Weight 126.87 kg 03/23/20 00:27 03/23/20 00:27
[2020-03-23] MEDS ORDERED: MONTELUKAST 10 MG TAB PO PRN (13:14)
--- NOTE | 2020-03-23 13:43 | P.HPIM ---
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 Daigle in 1 week which he agrees with Hypertension Hyperlipidemia Nicotine dependence Alcohol abuse Chronic leukopenia and thrombocytopenia, mostly related to myelosuppression secondary to alcoholism Hypothyroidism Hospital course This is a pleasant 64 years old male with multiple medical problems as below. Presents because of palpitation. He came to the hospital one week ago and discharged home. This time he felt recent heart up and down which made him concerned and came to the hospital. Patient denies chest pain or dyspnea or vomiting. Patient states that he has hemorrhoids. Also he smokes about 1 pack per day but cut down recently to 8 cigarettes per day. He drinks 6-8 beers every day for 50 years He denies any other symptoms, no headache or weakness or numbness, no blurred vision, no tube speech, no abdominal pain. No change in urine or bowel habits. No evidence of bleeding from anywhere. On admission he was tachycardic at 131. Labs showing leukopenia with WBCs 2.7K, hemoglobin normal at 13.28, platelets low 132. INR is unremarkable, BMP unremarkable as well, liver enzymes not elevated. Creatinine kinase is low at 52. Serial troponins are negative with less than 0.0123. TSH is normal at 4.3 EKG showing atrial fibrillation with RVR at 114, chest x-ray: No acute process. 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 Also patient to continue on aspirin and Norvasc. [employer] cleared The patient for discharge. He recommended Eliquis5 mg twice daily and continue home dose of nadolol. And also recommended to stop aspirin to decrease risk of bleeding. Patient was so eager to be leaving by 2:00 stating if he is not going to be discharged to leave AMA because he has pets to care of. He states his back to his normal self area and he told me he is willing to call and follow up with Dr. Daigle in 1 week Problems and management plan were discussed with the patient and he verbalized understanding and acceptance Patient was found stable and can be discharged home however he needs follow-up as an outpatient. Patient was instructed to follow up with PCP Dr. Light within one week and patient agrees. Also patient was instructed to follow up with Dr. Daigle in 1 week and he agrees Review of systems CONSTITUTIONAL: No fever, no malaise, no fatigue. HEENT: No recent visual problems or hearing problems. Denied any sore throat. CARDIOVASCULAR: No orthopnea, PND, no palpitations, no syncope. PULMONARY: No shortness of breath, no cough, no hemoptysis. GASTROINTESTINAL: No diarrhea, no nausea, no vomiting, no abdominal pain. Normoactive bowel sounds. NEUROLOGICAL: No headaches, no weakness, no numbness. HEMATOLOGICAL: Denies any bleeding or petechiae. GENITOURINARY: Denies any burning micturition, frequency, or urgency. MUSCULOSKELETAL/RHEUMATOLOGICAL: Denies any joint pain, swelling, or any muscle pain. ENDOCRINE: Denies any polyuria or polydipsia. Physical exam GENERAL: The patient is alert and oriented x3, not in any acute distress. Obese HEENT: Pupils are round and equally reacting to light. EOMI. No scleral icterus. No conjunctival pallor. Normocephalic, atraumatic. No pharyngeal erythema. No thyromegaly. CARDIOVASCULAR: S1 and S2 present. No murmurs, rubs, or gallops. PULMONARY: Chest is clear to auscultation, no wheezing or crackles. ABDOMEN: Soft, nontender, nondistended, normoactive bowel sounds. No palpable organomegaly. MUSCULOSKELETAL: No joint swelling or deformity. EXTREMITIES: No cyanosis, clubbing, or pedal edema. NEUROLOGICAL: Gross neurological examination did not reveal any focal deficits. SKIN: No rashes. No petechiae Time spent more than 35 minutes Review of Systems CONSTITUTIONAL: No fever, no malaise, no fatigue. HEENT: No recent visual problems or hearing problems. Denied any sore throat. CARDIOVASCULAR: No orthopnea, PND, no palpitations, no syncope. PULMONARY: No shortness of breath, no cough, no hemoptysis. GASTROINTESTINAL: No diarrhea, no nausea, no vomiting, no abdominal pain. Normoactive bowel sounds. NEUROLOGICAL: No headaches, no weakness, no numbness. HEMATOLOGICAL: Denies any bleeding or petechiae. GENITOURINARY: Denies any burning micturition, frequency, or urgency. MUSCULOSKELETAL/RHEUMATOLOGICAL: Denies any joint pain, swelling, or any muscle pain. ENDOCRINE: Denies any polyuria or polydipsia. Past Medical History Past Medical History: Atrial Fibrillation, Heart Failure, Hypertension, Thyroid Disorder Additional Past Medical History / Comment(s): Recent sinus infection/congestion tx with antibiotics, chronic pain low back, spinal stenosis, lumbago, arthritis multiple joints, past elevated LFTs, past Dimas's palsey. History of Any Multi-Drug Resistant Organisms: None Reported Past Surgical History: Hernia Repair Additional Past Surgical History / Comment(s): Abdominal hernia repair, R thigh fatty tumor removed, colonoscopies, epidural injections low back. Past Anesthesia/Blood Transfusion Reactions: No Reported Reaction Past Psychological History: No Psychological Hx Reported Additional Psychological History / Comment(s): Pt resides with his spouse of 42 yrs. He uses no assitive device. He drives. Pt states he has anxiety/depression and current medications do not work that well for him. He denies thoughts/plans of suicide. Pt states his xanax was taken away from him 2-3 months ago and that this has been a problem. Smoking Status: Current every day smoker Past Alcohol Use History: Daily Additional Past Alcohol Use History / Comment(s): Pt states he started smoking in 1974 and quit recently for 2 yrs then resumed smoking 4 months ago. He smokes less than a half pack a day. Pt states he used to drink alot of liqour but quit that a few years ago when his LFTs elevated. He states he drinks 6-8 beers a day and last drank yesterday. Past Drug Use History: None Reported Additional Drug Use History / Comment(s): Pt states he has tried marijuana in the past for pain control. Used on occasion. Medications and Allergies Home Medications Medication Instructions Recorded Confirmed Type HYDROcodone/APAP 10-325MG [[place] 1 tab PO QID PRN 07/05/17 03/23/20 History 10-325] Levothyroxine Sodium [Synthroid] 75 mcg PO DAILY 07/05/17 03/23/20 History amLODIPine [Norvasc] 10 mg PO DAILY 07/05/17 03/23/20 History lisinopriL [Zestril] 40 mg PO DAILY 07/05/17 03/23/20 History nadoloL [Corgard] 20 mg PO DAILY 07/05/17 03/23/20 History Montelukast Sodium [Singulair] 10 mg PO HS PRN 03/17/20 03/23/20 History Omeprazole 20 mg PO DAILY 03/17/20 03/23/20 History ALPRAZolam [Xanax] 0.5 mg PO HS PRN #12 tab 03/18/20 03/23/20 Rx Apixaban [Eliquis] 5 mg PO BID #180 tab 03/23/20 Rx Allergies Allergy/AdvReac Type Severity Reaction Status Date / Time cholesterol meds AdvReac See Uncoded 03/23/20 09:01 comments Physical Exam Vitals: Vital Signs Temp Pulse Pulse Resp BP BP Pulse Ox 03/23/20 11:08 165/85 03/23/20 09:00 16 03/23/20 08:33 98.4 F 58 L 16 173/72 99 03/23/20 03:00 98.7 F 58 L 18 116/71 96 03/23/20 02:20 75 18 108/66 96 03/23/20 02:00 84 16 95/53 03/23/20 01:57 96 16 100/66 96 03/23/20 01:51 73 18 108/73 03/23/20 01:00 96 16 110/79 96 03/23/20 00:15 131 H 03/23/20 00:12 98.8 F 43 L 18 178/119 92 L Intake and Output 03/22/20 03/23/20 03/23/20 22:59 06:59 14:59 Intake Total 239.343 Balance 239.343 Intake: Intake, IV Titration 139.343 Amount Diltiazem 125 mg In 28.75 Sodium Chloride 0.9% 100 ml @ 5 MG/HR 5 mls/hr IV .Q24H JERRY Rx#:[id number] Heparin Sod,Pork in 0.45% 110.593 NaCl 25,000 unit In 0.45 % NaCl 1 250ml.bag @ 7.87 UNITS/KG/HR 9.985 mls/hr IV .Q24H JERRY Rx#: [id number] Oral 100 Other: Voiding Method Toilet # Voids 1 Weight 126.87 kg GENERAL: The patient is alert and oriented x3, not in any acute distress. Well developed, well nourished. HEENT: Pupils are round and equally reacting to light. EOMI. No scleral icterus. No conjunctival pallor. Normocephalic, atraumatic. No pharyngeal erythema. No thyromegaly. CARDIOVASCULAR: S1 and S2 present. No murmurs, rubs, or gallops. PULMONARY: Chest is clear to auscultation, no wheezing or crackles. ABDOMEN: Soft, nontender, nondistended, normoactive bowel sounds. No palpable organomegaly. MUSCULOSKELETAL: No joint swelling or deformity. EXTREMITIES: No cyanosis, clubbing, or pedal edema. NEUROLOGICAL: Gross neurological examination did not reveal any focal deficits. SKIN: No rashes. No petechiae Results CBC & Chem 7: 03/23/20 00:27 03/23/20 00:27 Labs: Abnormal Lab Results - Last 24 Hours (Table) 03/23/20 03/23/20 Range/Units 00:27 00:27 WBC 2.7 L (3.8-10.6) k/uL RBC 4.07 L (4.30-5.90) m/uL MCV 100.2 H (80.0-100.0) fL RDW 15.7 H (11.5-15.5) % Plt Count 132 L (150-450) k/uL Neutrophils # (Manual) 1.05 L (1.3-7.7) k/uL BUN 5 L (9-20) mg/dL Creatinine 0.65 L (0.66-1.25) mg/dL Glucose 116 H (74-99) mg/dL Alkaline Phosphatase 151 H (38-126) U/L Creatine Kinase 52 L (55-170) U/L Thrombosis Risk Factor Assmnt - Choose All That Apply Each Risk Factor Represents 2 Points: Age 61-74 years Other congenital or acquired thrombophilia - If yes, enter type in comment: No Thrombosis Risk Factor Assessment Total Risk Factor Score: 2 Thrombosis Risk Factor Assessment Level: Low Risk
[2020-03-24] MEDS ORDERED: LEVOTHYROXINE 75 MCG TAB PO SCH (06:30)
[2020-03-24] MEDS ORDERED: ASPIRIN 81 MG PO SCH (09:00)
[2020-03-24] MEDS ORDERED: ASPIRIN 325 MG TAB PO SCH (09:00)
== END 2020-03-23 14:21 | disposition home or self-care (01) ==
LOC: EC 00:01 → 1SOBS 01:47
PROVIDERS: ADMIT Hospitalist; ATTEND Hospitalist
DX: I48.0 Paroxysmal atrial fibrillation (principal); D61.818 Other pancytopenia; F10.10 Alcohol abuse, uncomplicated; I11.0 Hypertensive heart disease with heart failure; I50.9 Heart failure, unspecified; I08.3 Combined rheumatic disorders of mitral, aortic and tricuspid valves; E78.5 Hyperlipidemia, unspecified; E03.9 Hypothyroidism, unspecified; G89.29 Other chronic pain; M54.5 Low back pain; M19.90 Unspecified osteoarthritis, unspecified site; M48.00 Spinal stenosis, site unspecified; F41.9 Anxiety disorder, unspecified; F32.9 Major depressive disorder, single episode, unspecified; F17.210 Nicotine dependence, cigarettes, uncomplicated; E66.9 Obesity, unspecified; Z68.33 Body mass index [BMI] 33.0-33.9, adult; K64.9 Unspecified hemorrhoids; Z79.82 Long term (current) use of aspirin; Z79.890 Hormone replacement therapy; Z79.891 Long term (current) use of opiate analgesic; Z79.899 Other long term (current) drug therapy; Z88.8 Allergy status to other drugs, medicaments and biological substances; Z86.69 Personal history of other diseases of the nervous system and sense organs; Z98.890 Other specified postprocedural states
CPT/HCPCS: 93005 ×2; 96366 ×2; 96376; 96368; 96365; 96375; 99285; 36415; 83880; 80053; 82550; 83735; 84100; 84443; 84484; 85025; 85610; 85730; 71045; G0378; J1644 ×2

== ENCOUNTER 2020-03-29 00:05 | Observation (INO) | payer MEDICARE ==
--- NOTE | 2020-03-29 00:40 | ED ---
Arrhythmia/Palpitations HPI - General Chief Complaint: Arrhythmia/Palpitations Stated Complaint: AFIB Time Seen by Provider: 03/29/20 00:12 Source: patient, family Mode of arrival: ambulatory Limitations: no limitations - History of Present Illness Initial Comments: 64-year-old male with history of newly diagnosed atrial fibrillation on eliquis 5 mg twice a day presented today for chief complaint of racing heart. Patient states on and off all day today he states his heart was racing. He states that one point he felt as though is going 180 bpm. Patient states he attempted to record this manually. Patient states that he did call EMS earlier who did an EKG recording a heart rate of 140. He refused transfer at this time and transfer himself to the emergency department. Patient states he does have some discomfort of the chest that radiated down the left arm at times when he felt his heart racing. Patient states that he feels slightly lightheaded when his heart is racing. Denies nausea, jaw pain. Patient states his left arm was tingling when the heart was racing but subsided when it slowed down. pt states he is frustrated with these episodes and feels like the medications are not working. he feels silly for comign to the ER 3 x in 3 weeks. patient denies dyspnea this time, states heart feels slower. No current chest discomfort. patie nt has no additional complaints. he dneies syncopal episodes. Pt HR between 107- 129 on arrival-afib. - Related Data Home Medications Medication Instructions Recorded Confirmed HYDROcodone/APAP 10-325MG [[place] 1 tab PO QID PRN 07/05/17 03/23/20 10-325] Levothyroxine Sodium [Synthroid] 75 mcg PO DAILY 07/05/17 03/23/20 amLODIPine [Norvasc] 10 mg PO DAILY 07/05/17 03/23/20 lisinopriL [Zestril] 40 mg PO DAILY 07/05/17 03/23/20 nadoloL [Corgard] 20 mg PO DAILY 07/05/17 03/23/20 Montelukast Sodium [Singulair] 10 mg PO HS PRN 03/17/20 03/23/20 Omeprazole 20 mg PO DAILY 03/17/20 03/23/20 Previous Rx's Medication Instructions Recorded ALPRAZolam [Xanax] 0.5 mg PO HS PRN #12 tab 03/18/20 Apixaban [Eliquis] 5 mg PO BID #180 tab 03/23/20 Allergies Allergy/AdvReac Type Severity Reaction Status Date / Time cholesterol meds AdvReac See Uncoded 03/29/20 00:11 comments Review of Systems ROS Statement: Those systems with pertinent positive or pertinent negative responses have been documented in the HPI. ROS Other: All systems not noted in ROS Statement are negative. Past Medical History Past Medical History: Atrial Fibrillation, Heart Failure, Hypertension, Thyroid Disorder Additional Past Medical History / Comment(s): Recent sinus infection/congestion tx with antibiotics, chronic pain low back, spinal stenosis, lumbago, arthritis multiple joints, past elevated LFTs, past Dimas's palsey. History of Any Multi-Drug Resistant Organisms: None Reported Past Surgical History: Hernia Repair Additional Past Surgical History / Comment(s): Abdominal hernia repair, R thigh fatty tumor removed, colonoscopies, epidural injections low back. Past Anesthesia/Blood Transfusion Reactions: No Reported Reaction Past Psychological History: No Psychological Hx Reported Smoking Status: Current every day smoker Past Alcohol Use History: Daily Past Drug Use History: None Reported General Exam - General Exam Comments Initial Comments: General: The patient is awake and alert, in no distress, and does not appear acutely ill. Eye: +3 mm pupils are equal, round and reactive to light, extra-ocular movements are intact. No nystagmus. There is normal conjunctiva bilaterally. No signs of icterus. Ears, nose, mouth and throat: There are moist mucous membranes and no oral lesions. Neck: The neck is supple, there is no tenderness or JVD. Cardiovascular: There is a increasedrate and irregular rhythm. No murmur, rub or gallop is appreciated. Respiratory: Lungs are clear to auscultation, respirations are non-labored, breath sounds are equal. No wheezes, stridor, rales, or rhonchi. Gastrointestinal: Soft, non-distended, non-tender abdomen without masses or organomegaly noted. There is no rebound or guarding present Musculoskeletal: Normal ROM, no tenderness. Strength 5/5. Sensation intact. Radial and DP pulses equal bilaterally 2+. Neurological: A&O x 3. CN II-XII intact grossly, There are no obvious motor or sensory deficits. Coordination appears grossly intact. Speech is normal. Skin: Skin is warm and dry and no rashes or lesions are noted. No LE edema. Psychiatric: Cooperative, appropriate mood & affect, normal judgment. Limitations: no limitations Course Vital Signs 03/29/20 03/29/20 03/29/20 00:06 00:46 01:22 Temperature 98.4 F Pulse Rate 68 128 H 93 Respiratory 20 18 Rate Blood Pressure 132/78 117/75 O2 Sat by Pulse 97 100 Oximetry Medical Decision Making - Medical Decision Making Labs stable. trop (-) CXR no acute process. BNP increased from last visit. HR bouncing between 87-130bpm. pt concerned wtih continues to go up. BP lower aspect of normal. patient mostly has a HR near 100 or less. pt complaining of chest discomfort. will be admitted for cardiology evaluation, serial troponins. Dr. thakkar agreeable to care plan. - Lab Data Result diagrams: 03/29/20 00:16 03/29/20 00:16 Lab Results 03/29/20 03/29/20 03/29/20 Range/Units 00:16 00:16 00:16 WBC 2.7 L (3.8-10.6) k/uL RBC 3.97 L (4.30-5.90) m/uL Hgb 13.1 (13.0-17.5) gm/dL Hct 39.2 (39.0-53.0) % MCV 98.7 (80.0-100.0) fL MCH 33.0 (25.0-35.0) pg MCHC 33.4 (31.0-37.0) g/dL RDW 15.3 (11.5-15.5) % Plt Count 120 L (150-450) k/uL MPV 8.6 Neutrophils % (Manual) 39 % Band Neuts % (Manual) 4 % Lymphocytes % (Manual) 43 % Monocytes % (Manual) 10 % Eosinophils % (Manual) 4 % Neutrophils # (Manual) 1.10 L (1.3-7.7) k/uL Lymphocytes # (Manual) 1.16 (1.0-4.8) k/uL Monocytes # (Manual) 0.27 (0-1.0) k/uL Eosinophils # (Manual) 0.11 (0-0.7) k/uL Nucleated RBCs 0 (0-0) /100 WBC Manual Slide Review Performed Polychromasia Present Macrocytosis Slight PT 11.4 (9.0-12.0) sec INR 1.1 (<1.2) APTT 26.8 (22.0-30.0) sec Sodium 135 L (137-145) mmol/L Potassium 3.7 (3.5-5.1) mmol/L Chloride 102 (98-107) mmol/L Carbon Dioxide 27 (22-30) mmol/L Anion Gap 6 mmol/L BUN 5 L (9-20) mg/dL Creatinine 0.71 (0.66-1.25) mg/dL Est GFR (CKD-EPI)AfAm >90 (>60 ml/min/1.73 sqM) Est GFR (CKD-EPI)NonAf >90 (>60 ml/min/1.73 sqM) Glucose 112 H (74-99) mg/dL Calcium 9.3 (8.4-10.2) mg/dL Magnesium 1.6 (1.6-2.3) mg/dL Total Bilirubin 1.2 (0.2-1.3) mg/dL AST 44 (17-59) U/L ALT 29 (4-49) U/L Alkaline Phosphatase 158 H (38-126) U/L Troponin I (0.000-0.034) ng/mL NT-Pro-B Natriuret Pep pg/mL Total Protein 7.0 (6.3-8.2) g/dL Albumin 4.4 (3.5-5.0) g/dL 03/29/20 03/29/20 Range/Units 00:16 00:16 WBC (3.8-10.6) k/uL RBC (4.30-5.90) m/uL Hgb (13.0-17.5) gm/dL Hct (39.0-53.0) % MCV (80.0-100.0) fL MCH (25.0-35.0) pg MCHC (31.0-37.0) g/dL RDW (11.5-15.5) % Plt Count (150-450) k/uL MPV Neutrophils % (Manual) % Band Neuts % (Manual) % Lymphocytes % (Manual) % Monocytes % (Manual) % Eosinophils % (Manual) % Neutrophils # (Manual) (1.3-7.7) k/uL Lymphocytes # (Manual) (1.0-4.8) k/uL Monocytes # (Manual) (0-1.0) k/uL Eosinophils # (Manual) (0-0.7) k/uL Nucleated RBCs (0-0) /100 WBC Manual Slide Review Polychromasia Macrocytosis PT (9.0-12.0) sec INR (<1.2) APTT (22.0-30.0) sec Sodium (137-145) mmol/L Potassium (3.5-5.1) mmol/L Chloride (98-107) mmol/L Carbon Dioxide (22-30) mmol/L Anion Gap mmol/L BUN (9-20) mg/dL Creatinine (0.66-1.25) mg/dL Est GFR (CKD-EPI)AfAm (>60 ml/min/1.73 sqM) Est GFR (CKD-EPI)NonAf (>60 ml/min/1.73 sqM) Glucose (74-99) mg/dL Calcium (8.4-10.2) mg/dL Magnesium (1.6-2.3) mg/dL Total Bilirubin (0.2-1.3) mg/dL AST (17-59) U/L ALT (4-49) U/L Alkaline Phosphatase (38-126) U/L Troponin I <0.012 (0.000-0.034) ng/mL NT-Pro-B Natriuret Pep 1210 pg/mL Total Protein (6.3-8.2) g/dL Albumin (3.5-5.0) g/dL Disposition Clinical Impression: Chest discomfort, Palpitations, Paroxysmal atrial fibrillation with RVR Disposition: ADMITTED IP TO THIS HOSP Condition: Stable Is patient prescribed a controlled substance at d/c from ED?: No Referrals: Lucia Light DO [Primary Care Provider] - 1-2 days Time of Disposition: 02:10 Decision to Admit Reason: Admit from EC Decision Date: 03/29/20 Decision Time: 02:10
--- NOTE | 2020-03-29 00:44 | XR ---
EXAM: XR Chest, 2 Views CLINICAL HISTORY: ITS.REASON XR Reason: Chest Pain TECHNIQUE: Frontal and lateral views of the chest. COMPARISON: Chest x-ray dated 03/23/2020 FINDINGS: Lungs: Unremarkable. Pleural space: Unremarkable. Heart: Unremarkable. Mediastinum: Unremarkable. Bones/joints: Unremarkable. IMPRESSION: Normal chest x-rays.
[2020-03-29 00:46] LABS: HCT 39.2 % (39.0-53.0); HGB 13.1 gm/dL (13.0-17.5); MCHC 33.4 g/dL (31.0-37.0); MCV 98.7 fL (80.0-100.0); Macrocytosis Slight; Mean Platelet Volume 8.6; Platelet Count 120 k/uL (150-450); RBC 3.97 m/uL (4.30-5.90); RDW 15.3 % (11.5-15.5); WBC 2.7 k/uL (3.8-10.6)
[2020-03-29 00:54] LABS: ALT 29 U/L (4-49); AST 44 U/L (17-59); African American GFR (CKD) >90 (>60 ml/min/1.73 sqM); Albumin 4.4 g/dL (3.5-5.0); Alkaline Phosphatase 158 U/L (38-126); Anion Gap 6 mmol/L; Blood Urea Nitrogen 5 mg/dL (9-20); Calcium 9.3 mg/dL (8.4-10.2); Carbon Dioxide 27 mmol/L (22-30); Chloride 102 mmol/L (98-107); Glucose 112 mg/dL (74-99); Magnesium 1.6 mg/dL (1.6-2.3); Non-African American GFR(CKD) >90 (>60 ml/min/1.73 sqM); Potassium 3.7 mmol/L (3.5-5.1); Sodium 135 mmol/L (137-145); Total Bilirubin 1.2 mg/dL (0.2-1.3)
[2020-03-29 00:56] LABS: INR 1.1 (<1.2); Partial Thromboplastin Time 26.8 sec (22.0-30.0); Prothrombin Time 11.4 sec (9.0-12.0)
[2020-03-29 01:16] LABS: Band Neutrophils % 4 %; Eosinophils # (M) 0.11 k/uL (0-0.7); Lymphocytes # (M) 1.16 k/uL (1.0-4.8); Monocytes # (M) 0.27 k/uL (0-1.0); Neutrophils % (M) 39 %; Nucleated Red Blood Cells 0 /100 WBC (0-0); Total Cells Counted 100
[2020-03-29 01:17] LABS: Polychromasia Present
[2020-03-29] MEDS ORDERED: NITROGLYCERIN SL TABS 0.4 MG TAB SUBLINGUAL PRN (02:08)
[2020-03-29] MEDS ORDERED: HYDROcodone/APAP 10-325MG 1 EACH TAB PO PRN (07:37)
[2020-03-29] MEDS ORDERED: MONTELUKAST 10 MG TAB PO PRN (07:37)
[2020-03-29] MEDS ORDERED: ALPRAZolam 0.5 MG TAB PO PRN (07:37)
[2020-03-29] MEDS ORDERED: PANTOPRAZOLE 40 MG TABLET PO SCH (08:00)
[2020-03-29] MEDS ORDERED: LEVOTHYROXINE 75 MCG TAB PO SCH (08:00)
[2020-03-29 08:07] VITALS: BP 126/75; PULSE 116; RESP 16; TEMP 97.5
[2020-03-29] MEDS ORDERED: APIXABAN 5 MG TAB PO SCH (09:00)
[2020-03-29 09:43] LABS: T4, Free (Free Thyroxine) 1.24 ng/dL (0.78-2.19)
--- NOTE | 2020-03-29 13:12 | P.HPIM ---
History of Present Illness 64-year-old male with history of newly diagnosed atrial fibrillation on eliquis 5 mg twice a day presented today for chief complaint of racing heart. Patient states on and off all day today he states his heart was racing. He states that one point he felt as though is going 180 bpm. Patient states he attempted to record this manually. Patient states that he did call EMS earlier who did an EKG recording a heart rate of 140. He refused transfer at this time and transfer himself to the emergency department. Patient states he does have some discomfort of the chest that radiated down the left arm at times when he felt his heart racing. Patient states that he feels slightly lightheaded when his heart is racing. Denies nausea, jaw pain. Patient states his left arm was tingling when the heart was racing but subsided when it slowed down. pt states he is frustrated with these episodes and feels like the medications are not working. he feels silly for comign to the ER 3 x in 3 weeks. patient denies dyspnea this time, states heart feels slower. No current chest discomfort. patient has no additional complaints. he dneies syncopal episodes. Patient was evaluated cardiology to increase the dose of nadolol. Extensive co unseling regarding cessation of alcohol was provided patient is try and cut down on his beers patient used to drink about 20 beers cut it down to 12 now around 6 beers. Patient will be ambulated and if her heart his heart rate stays stable on increased owen all patient will be discharged. Patient will try and quit his smoking as well. Blood pressure is low his amlodipine is already being held DOWN THE DOSE OF HER LISINOPRIL. SHE will follow up with cardiology next week. Review of Systems REVIEW OF SYSTEMS: CONSTITUTIONAL: No fever, no malaise, no fatigue. HEENT: No recent visual problems or hearing problems. Denied any sore throat. CARDIOVASCULAR: No chest pain, orthopnea, PND, no syncope. PULMONARY: No shortness of breath, no cough, no hemoptysis. GASTROINTESTINAL: No diarrhea, no nausea, no vomiting, no abdominal pain. NEUROLOGICAL: No headaches, no weakness, no numbness. HEMATOLOGICAL: Denies any bleeding or petechiae. GENITOURINARY: Denies any burning micturition, frequency, or urgency. MUSCULOSKELETAL/RHEUMATOLOGICAL: Denies any joint pain, swelling, or any muscle pain. ENDOCRINE: Denies any polyuria or polydipsia. The rest of the 14-point review of systems is negative. Past Medical History Past Medical History: Atrial Fibrillation, Heart Failure, Hypertension, Thyroid Disorder Additional Past Medical History / Comment(s): Recent sinus infection/congestion tx with antibiotics, chronic pain low back, spinal stenosis, lumbago, arthritis multiple joints, past elevated LFTs, past Dimas's palsey. History of Any Multi-Drug Resistant Organisms: None Reported Past Surgical History: Hernia Repair Additional Past Surgical History / Comment(s): Abdominal hernia repair, R thigh fatty tumor removed, colonoscopies, epidural injections low back. Past Anesthesia/Blood Transfusion Reactions: No Reported Reaction Past Psychological History: No Psychological Hx Reported Additional Psychological History / Comment(s): Pt resides with his spouse of 42 yrs. He uses no assitive device. He drives. Pt states he has anxi ety/depression and current medications do not work that well for him. He denies thoughts/plans of suicide. Pt states his xanax was taken away from him 2-3 months ago and that this has been a problem. Smoking Status: Current every day smoker Past Alcohol Use History: Daily Additional Past Alcohol Use History / Comment(s): Pt states he started smoking in 1974 and quit recently for 2 yrs then resumed smoking 4 months ago. He smokes less than a half pack a day. Pt states he used to drink alot of liqour but quit that a few years ago when his LFTs elevated. He states he drinks 6-8 beers a day and last drank yesterday. Past Drug Use History: None Reported Additional Drug Use History / Comment(s): Pt states he has tried marijuana in the past for pain control. Used on occasion. - Past Family History Father Family Medical History: Hypertension Additional Family Medical History / Comment(s): heart valve replacements. Medications and Allergies Home Medications Medication Instructions Recorded Confirmed Type HYDROcodone/APAP 10-325MG [[place] 1 tab PO QID PRN 07/05/17 03/29/20 History 10-325] Levothyroxine Sodium [Synthroid] 75 mcg PO DAILY 07/05/17 03/29/20 History Montelukast Sodium [Singulair] 10 mg PO HS PRN 03/17/20 03/29/20 History Omeprazole 20 mg PO DAILY 03/17/20 03/29/20 History ALPRAZolam [Xanax] 0.5 mg PO HS PRN #12 tab 03/18/20 03/29/20 Rx Apixaban [Eliquis] 5 mg PO BID #180 tab 03/23/20 03/29/20 Rx lisinopriL [Zestril] 20 mg PO DAILY #0 03/29/20 03/29/20 Rx nadoloL [Corgard] 40 mg PO DAILY tab 03/29/20 Rx Allergies Allergy/AdvReac Type Severity Reaction Status Date / Time cholesterol meds AdvReac See Uncoded 03/29/20 08:02 comments Physical Exam Vitals: Vital Signs Temp Pulse Pulse Resp BP BP Pulse Ox 03/29/20 09:00 116 H 16 03/29/20 08:01 97.5 F L 116 H 16 126/75 99 03/29/20 03:30 98.3 F 63 17 105/74 98 03/29/20 01:22 93 18 117/75 100 03/29/20 00:46 128 H 03/29/20 00:06 98.4 F 68 20 132/78 97 Intake and Output 03/28/20 03/29/20 03/29/20 22:59 06:59 14:59 Intake Total 600 Balance 600 Intake: Oral 600 Other: Voiding Method Toilet Toilet # Voids 1 1 Weight 127.006 kg PHYSICAL EXAMINATION: GENERAL: The patient is alert and oriented x3, not in any acute distress. Well developed, well nourished. HEENT: Pupils are round and equally reacting to light. EOMI. No scleral icterus. No conjunctival pallor. Normocephalic, atraumatic. No pharyngeal erythema. No thyromegaly. CARDIOVASCULAR: S1 and S2 present. No murmurs, rubs, or gallops. Tachycardic irregularly irregular rhythm PULMONARY: Chest is clear to auscultation, no wheezing or crackles. ABDOMEN: Soft, nontender, nondistended, normoactive bowel sounds. No palpable organomegaly. MUSCULOSKELETAL: No joint swelling or deformity. EXTREMITIES: No cyanosis, clubbing, or pedal edema. NEUROLOGICAL: Gross neurological examination did not reveal any focal deficits. SKIN: No rashes. Results CBC & Chem 7: 03/29/20 00:16 03/29/20 00:16 Labs: Abnormal Lab Results - Last 24 Hours (Table) 03/29/20 03/29/20 03/29/20 Range/Units 00:16 00:16 00:16 WBC 2.7 L (3.8-10.6) k/uL RBC 3.97 L (4.30-5.90) m/uL Plt Count 120 L (150-450) k/uL Neutrophils # (Manual) 1.10 L (1.3-7.7) k/uL Sodium 135 L (137-145) mmol/L BUN 5 L (9-20) mg/dL Glucose 112 H (74-99) mg/dL Alkaline Phosphatase 158 H (38-126) U/L TSH 5.220 H (0.465-4.680) mIU/L Thrombosis Risk Factor Assmnt - Choose All That Apply Each Factor Represents 1 point: Obesity (BMI >25) Other Risk Factors: Yes Each Risk Factor Represents 2 Points: Age 61-74 years Other congenital or acquired thrombophilia - If yes, enter type in comment: No Thrombosis Risk Factor Assessment Total Risk Factor Score: 3 Thrombosis Risk Factor Assessment Level: Moderate Risk Assessment and Plan Plan: Atrial fibrillation with rapid ventricular rate: Dose of nadolol was increased. Patient heart rate is still high, cardiology recommended ablating the patient feels later after nadolol and if cleared by cardiology will be discharged today and patient will continue with his Effexor been -Nicotine abuse: Counseling was provided alcohol abuse extensive counseling was provided until patient quits alcohol it's hard to bring the heart rate down. -Hypertension: Discontinued amlodipine cut down the dose of YOLANDA inhibitor increase the dose of metabolic as mentioned above -Hypothyroidism -gastroesophageal reflux disease
--- NOTE | 2020-03-29 13:14 | P.DS ---
Providers Date of admission: 03/29/20 02:37 Attending physician: Cosmo Light MD Consults: 03/29/20 02:09 Consult Physician Urgent Consulting Provider: Pablo Daigle Consult Reason/Comments: afib (in and out rvr), chest discomfort Do you want consulting provider notified?: Yes, Notify in am Primary care physician: Lucia Light Lds Hospital Course: Refer to my history of present illness Patient Condition at Discharge: Stable Plan - Discharge Summary Discharge Rx Participant: No New Discharge Prescriptions: New nadoloL [Corgard] 40 mg PO DAILY tab Continue HYDROcodone/APAP 10-325MG [[place] 10-325] 1 tab PO QID PRN PRN Reason: Pain Levothyroxine Sodium [Synthroid] 75 mcg PO DAILY Montelukast Sodium [Singulair] 10 mg PO HS PRN PRN Reason: Congestion Omeprazole 20 mg PO DAILY ALPRAZolam [Xanax] 0.5 mg PO HS PRN #12 tab PRN Reason: Insomnia Apixaban [Eliquis] 5 mg PO BID #180 tab Changed lisinopriL [Zestril] 20 mg PO DAILY #0 Discontinued amLODIPine [Norvasc] 10 mg PO DAILY nadoloL [Corgard] 20 mg PO DAILY Discharge Medication List HYDROcodone/APAP 10-325MG [[place] 10-325] 1 tab PO QID PRN 07/05/17 [History] Levothyroxine Sodium [Synthroid] 75 mcg PO DAILY 07/05/17 [History] Montelukast Sodium [Singulair] 10 mg PO HS PRN 03/17/20 [History] Omeprazole 20 mg PO DAILY 03/17/20 [History] ALPRAZolam [Xanax] 0.5 mg PO HS PRN #12 tab 03/18/20 [Rx] Apixaban [Eliquis] 5 mg PO BID #180 tab 03/23/20 [Rx] lisinopriL [Zestril] 20 mg PO DAILY #0 03/29/20 [Rx] nadoloL [Corgard] 40 mg PO DAILY tab 03/29/20 [Rx] Follow up Appointment(s)/Referral(s): Pablo Daigle DO [STAFF PHYSICIAN] - 1 Week (as scheduled) Nadege,Lucia, DO [Primary Care Provider] - 3 Days (office closed this Tuesday/ please call or follow up appointment) Patient Instructions/Handouts: A-fib (Atrial Fibrillation) (DC) Discharge Disposition: HOME SELF-CARE
--- NOTE | 2020-03-29 13:26 | P.CRDCN ---
History of Present Illness Consult date: 03/29/20 Consult reason: atrial fibrillation History of present illness: The patient is a 64-year-old male with past medical history of EtOH abuse, current smoker, new onset paroxysmal atrial fibrillation, hypertension, and dyslipidemia, who presented to the emergency room with palpitations and shortness of breath. The patient states when he has episodes of heart racing a often occur at night when he lies in bed. He states he feels as though he is h aving a panic attack at that time. He becomes very anxious with chest tightness and has difficulty breathing. The patient states he does not have any exertional chest pain. No dizziness or lightheadedness. DIAGNOSTICS: EKG shows atrial fibrillation with RVR; heart rate 116 bpm Chest x-ray is unremarkable Laboratory data shows WBC 2.7, hemoglobin 13.1, platelet 120, sodium 135, potassium 3.7, BUN 5, creatinine 0.71, AST is 44, ALT 29, troponins negative 3, BNP 1210, TSH 5.22 PAST MEDICAL HISTORY: EtOH abuse, current smoker, new onset paroxysmal atrial fibrillation, hypertension, and dyslipidemia, REVIEW OF SYSTEMS: No fever or chills. No cough or expectoration. No diaphoresis. Patient denies headache, dizziness, blurred vision, double vision. Patient denies any stomach discomfort. No nausea, vomiting. No hematochezia. No hematemesis. Denies any black stools or blood in his stools. Denies dysuria or hematuria. No muscle weakness or numbness. No chest pain or shortness of breath this time. PHYSICAL EXAMINATION: This is a 64-year-old obese male in no apparent distress at the time of my examination. HEENT: Head is atraumatic, normocephalic. Pupils are equal, round. Sclerae an icteric. Conjunctivae are clear. Mucous membranes of the mouth are moist. Neck is supple. There is no jugular venous distention. No carotid bruit is heard. CHEST EXAMINATION: Lungs are rhonchorous to auscultation. No chest wall tenderness is noted on palpation or with deep breathing. HEART EXAMINATION: Irregular rate and rhythm. S1, S2 heard. No murmurs, gallops or rub. ABDOMEN: Soft, nontender. Bowel sounds are heard. No organomegaly noted. EXTREMITIES: 2+ peripheral pulses. +1-2 lower extremity pitting edema. no calf tenderness noted. NEUROLOGIC EXAMINATION: Patient is awake, alert and oriented x3. 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 Plan of care has been reviewed and agreed upon by Dr Zimmer. Past Medical History Past Medical History: Atrial Fibrillation, Heart Failure, Hypertension, Thyroid Disorder Additional Past Medical History / Comment(s): Recent sinus infection/congestion tx with antibiotics, chronic pain low back, spinal stenosis, lumbago, arthritis multiple joints, past elevated LFTs, past Dimas's palsey. History of Any Multi-Drug Resistant Organisms: None Reported Past Surgical History: Hernia Repair Additional Past Surgical History / Comment(s): Abdominal hernia repair, R thigh fatty tumor removed, colonoscopies, epidural injections low back. Past Anesthesia/Blood Transfusion Reactions: No Reported Reaction Past Psychological History: No Psychological Hx Reported Additional Psychological History / Comment(s): Pt resides with his spouse of 42 yrs. He uses no assitive device. He drives. Pt states he has anxiety/depression and current medications do not work that well for him. He denies thoughts/plans of suicide. Pt states his xanax was taken away from him 2-3 months ago and that this has been a problem. Smoking Status: Current every day smoker Past Alcohol Use History: Daily Additional Past Alcohol Use History / Comment(s): Pt states he started smoking in 1974 and quit recently for 2 yrs then resumed smoking 4 months ago. He smokes less than a half pack a day. Pt states he used to drink alot of liqour but quit that a few years ago when his LFTs elevated. He states he drinks 6-8 beers a day and last drank yesterday. Past Drug Use History: None Reported Additional Drug Use History / Comment(s): Pt states he has tried marijuana in the past for pain control. Used on occasion. - Past Family History Father Family Medical History: Hypertension Additional Family Medical History / Comment(s): heart valve replacements. Medications and Allergies Home Medications Medication Instructions Recorded Confirmed Type HYDROcodone/APAP 10-325MG [[place] 1 tab PO QID PRN 07/05/17 03/29/20 History 10-325] Levothyroxine Sodium [Synthroid] 75 mcg PO DAILY 07/05/17 03/29/20 History Montelukast Sodium [Singulair] 10 mg PO HS PRN 03/17/20 03/29/20 History Omeprazole 20 mg PO DAILY 03/17/20 03/29/20 History ALPRAZolam [Xanax] 0.5 mg PO HS PRN #12 tab 03/18/20 03/29/20 Rx Apixaban [Eliquis] 5 mg PO BID #180 tab 03/23/20 03/29/20 Rx lisinopriL [Zestril] 20 mg PO DAILY #0 03/29/20 03/29/20 Rx nadoloL [Corgard] 40 mg PO DAILY tab 03/29/20 Rx Allergies Allergy/AdvReac Type Severity Reaction Status Date / Time cholesterol meds AdvReac See Uncoded 03/29/20 08:02 comments Physical Exam Vitals: Vital Signs Temp Pulse Pulse Resp BP BP Pulse Ox 03/29/20 09:00 116 H 16 03/29/20 08:01 97.5 F L 116 H 16 126/75 99 03/29/20 03:30 98.3 F 63 17 105/74 98 03/29/20 01:22 93 18 117/75 100 03/29/20 00:46 128 H 03/29/20 00:06 98.4 F 68 20 132/78 97 Intake and Output 03/28/20 03/29/20 03/29/20 22:59 06:59 14:59 Intake Total 600 Balance 600 Intake: Oral 600 Other: Voiding Method Toilet Toilet # Voids 1 1 Weight 127.006 kg Results 03/29/20 00:16 03/29/20 00:16 Cardiac Enzymes 03/29/20 03/29/20 03/29/20 Range/Units 00:16 00:16 04:56 AST 44 (17-59) U/L Troponin I <0.012 <0.012 (0.000-0.034) ng/mL 03/29/20 Range/Units 06:42 AST (17-59) U/L Troponin I <0.012 (0.000-0.034) ng/mL Coagulation 03/29/20 Range/Units 00:16 PT 11.4 (9.0-12.0) sec APTT 26.8 (22.0-30.0) sec CBC 03/29/20 Range/Units 00:16 WBC 2.7 L (3.8-10.6) k/uL RBC 3.97 L (4.30-5.90) m/uL Hgb 13.1 (13.0-17.5) gm/dL Hct 39.2 (39.0-53.0) % Plt Count 120 L (150-450) k/uL Comprehensive Metabolic Panel 03/29/20 Range/Units 00:16 Sodium 135 L (137-145) mmol/L Potassium 3.7 (3.5-5.1) mmol/L Chloride 102 (98-107) mmol/L Carbon Dioxide 27 (22-30) mmol/L BUN 5 L (9-20) mg/dL Creatinine 0.71 (0.66-1.25) mg/dL Glucose 112 H (74-99) mg/dL Calcium 9.3 (8.4-10.2) mg/dL AST 44 (17-59) U/L ALT 29 (4-49) U/L Alkaline Phosphatase 158 H (38-126) U/L Total Protein 7.0 (6.3-8.2) g/dL Albumin 4.4 (3.5-5.0) g/dL Current Medications Generic Name Dose Route Start Last Admin Trade Name Freq PRN Reason Stop Dose Admin Hydrocodone Bitart/Acetaminophen 1 each 03/29/20 07:37 Hydrocodone/Apap 10-325mg 1 Each Tab PO QID PRN Pain Alprazolam 0.5 mg 03/29/20 07:37 Alprazolam 0.5 Mg Tab PO HS PRN Insomnia Apixaban 5 mg 03/29/20 09:00 03/29/20 09:22 Apixaban 5 Mg Tab PO Not Given BID JERRY Levothyroxine Sodium 75 mcg 03/29/20 08:00 03/29/20 09:23 Levothyroxine 75 Mcg Tab PO 75 mcg DAILY@0630 JERRY Administration Lisinopril 40 mg 03/29/20 21:00 Lisinopril 20 Mg Tab PO HS JERRY Montelukast Sodium 10 mg 03/29/20 07:37 Montelukast 10 Mg Tab PO HS PRN Congestion Nadolol 40 mg 03/30/20 09:00 Nadolol 20 Mg Tab PO DAILY JERRY Nitroglycerin 0.4 mg 03/29/20 02:08 Nitroglycerin Sl Tabs 0.4 Mg Tab SUBLINGUAL Q5M PRN Chest Pain Pantoprazole Sodium 40 mg 03/29/20 08:00 03/29/20 09:23 Pantoprazole 40 Mg Tablet PO 40 mg [id number] Administration Intake and Output 03/28/20 03/29/20 03/29/20 22:59 06:59 14:59 Intake Total 600 Balance 600 Intake: Oral 600 Other: Voiding Method Toilet Toilet # Voids 1 1 Weight 127.006 kg 03/29/20 00:16 03/29/20 00:16
[2020-03-29] MEDS ORDERED: lisinopriL 20 MG TAB PO SCH (21:00)
[2020-03-30] MEDS ORDERED: ASPIRIN 325 MG TAB PO SCH (09:00)
== END 2020-03-29 13:50 | disposition home or self-care (01) ==
LOC: EC 00:05 → 1SOBS 02:37
PROVIDERS: ADMIT Family Medicine; ATTEND Family Medicine
DX: I48.0 Paroxysmal atrial fibrillation (principal); R07.89 Other chest pain; E78.5 Hyperlipidemia, unspecified; I11.0 Hypertensive heart disease with heart failure; K21.9 Gastro-esophageal reflux disease without esophagitis; E03.9 Hypothyroidism, unspecified; I50.9 Heart failure, unspecified; F10.10 Alcohol abuse, uncomplicated; F17.210 Nicotine dependence, cigarettes, uncomplicated; G89.29 Other chronic pain; M54.5 Low back pain; M48.00 Spinal stenosis, site unspecified; M13.89 Other specified arthritis, multiple sites; G51.0 Bell's palsy; Z98.890 Other specified postprocedural states; Z82.49 Family history of ischemic heart disease and other diseases of the circulatory system; Z79.01 Long term (current) use of anticoagulants; Z79.890 Hormone replacement therapy; Z79.899 Other long term (current) drug therapy; Z88.8 Allergy status to other drugs, medicaments and biological substances
CPT/HCPCS: 99285; 36415; 93005; 84439; 83880; 80053; 84443; 83735; 84484; 85025; 85610; 85730; 71046; G0378

== ENCOUNTER 2020-06-10 10:54 | Day surgery (SDC) | payer MEDICARE ==
[2020-06-06 13:44] VITALS: BMI 32.5
[~2020-06-10 10:54] MED LIST: SODIUM CHLORIDE 0.9% 1,000 ML IV SCH
[2020-06-10] MEDS ORDERED: SODIUM CHLORIDE 0.9% 1,000 ML IV ONE (11:15)
[2020-06-10 11:47] VITALS: TEMP 97.5
[2020-06-10] MEDS ORDERED: fentaNYL (PF) 50 MCG/ML 2 ML AMP ONE (11:53)
[2020-06-10] MEDS ORDERED: LIDOCAINE 1% INJ 10MG/ML (20 ML MDV) ONE (11:53)
[2020-06-10] MEDS ORDERED: FUROSEMIDE 10 MG/ML 2 ML VIAL ONE (11:53)
[2020-06-10] MEDS ORDERED: PROPOFOL 10 MG/ML 20 ML VIAL IV ONE (11:53)
[2020-06-10] MEDS ORDERED: MIDAZOLAM 2 MG/2 ML VIAL ONE (11:53)
[2020-06-10 12:32] LABS: African American GFR (CKD) >90 (>60 ml/min/1.73 sqM); Anion Gap 8 mmol/L; Blood Urea Nitrogen 6 mg/dL (9-20); Calcium 9.3 mg/dL (8.4-10.2); Carbon Dioxide 32 mmol/L (22-30); Chloride 97 mmol/L (98-107); Glucose 113 mg/dL (74-99); Non-African American GFR(CKD) >90 (>60 ml/min/1.73 sqM); Potassium 3.6 mmol/L (3.5-5.1); Sodium 137 mmol/L (137-145)
[2020-06-10 12:45] VITALS: RESP 16
[2020-06-10 14:16] VITALS: PULSE 78
[2020-06-10 14:17] VITALS: BP 158/89
--- NOTE | 2020-06-10 14:32 | P.TEE ---
Description of Procedure(s): Procedure performed: Transesophageal Echocardiogram with color flow doppler, pulsed wave doppler and continuous wave doppler, moderate conscious sedation, attempted cardioversion Moderate conscious sedation: Sedation was provided by anesthesia, see separate report. Complications: none Indications: Afib, Moderate to severe MR History: Patient is a pleasant 64 year old male with history of HTN, alcohol use, nicotine dependence, and atrial fibrillation who was found to have new onset of Afib in March 2020. He did convert to normal sinus rhythm after admission in March however on followup in office was found to have recurrent Afib. He is not overly active secondary to back pains however does occasionally have anxiety attacks which he has had for years where he feels like he cannot catch his breath. He had an echo performed which showed moderate to severe mitral regurgitation and moderate to severe tricuspid regurgitation with recommendations for CARROLL to further evaluate MR. PROCEDURE: After the risks, benefits and alternatives of the above mentioned procedure was explained in detail with the patient, informed consent was obtained. Patient was brought to the lab in a fasting state. Patient was given sedation by anesthesia. The throat was sprayed with Hurricane to anesthetize the throat. A lubricated Omni probe was then introduced into the esophagus and stomach and multiple views were obtained. 2D echo with color flow doppler, pulsed wave doppler and continuous wave doppler was utilized. Agitated saline bubbles were injected to assess for any intra-atrial shunt. Patient's blood pressure was somewhat elevated and therefore antihypertensives were given to evaluate if any improvement in degree of MR, however there was not much change. The probe was then removed. Attempted cardioversion was performed with 200J and then with 360J which was unsuccessful. Patient tolerated the procedure well. Patient was transferred to the post procedure area in stable and satisfactory condition. FINDINGS: 1. The aortic valve is tricuspid and function normally with mild aortic valve sclerosis and no significant aortic stenosis. 2. The mitral valve is structurally normal. There are 2 mitral regurgitant jets. There is a central regurgitant jet with vena contracta of 0.6cm and PISA radius of 0.9-1.0 at [place] of 42 consistent with moderate to severe mitral regurgitation. There is additional posteriorly directed smaller jet. There is blunting of systolic veins however no flow reversal. Parameters are consistent with moderate to severe mitral regurgitation however no clear evidence of severe mitral regurgitation, clinical indication recommended. 3. Tricuspid valve is normal. There is moderate to severe tricuspid regurgitation. RVSP of 51 with an assumed RAP of 15mmHg. 4. The interatrial septum is intact. No evidence of PFO. 5. Left atrial appendage is free of clot. 6. Left ventricular size and function appear to be normal with EF 55%. 7. Severely dilated left atrium 8. Mild to moderately dilated right atrium.
== END 2020-06-10 14:17 | disposition home or self-care (01) ==
LOC: CATHCVL 10:54
PROVIDERS: ATTEND Internal Medicine
DX: I08.3 Combined rheumatic disorders of mitral, aortic and tricuspid valves (principal); I48.0 Paroxysmal atrial fibrillation; I11.0 Hypertensive heart disease with heart failure; I50.9 Heart failure, unspecified; E78.5 Hyperlipidemia, unspecified; R93.1 Abnormal findings on diagnostic imaging of heart and coronary circulation; F17.200 Nicotine dependence, unspecified, uncomplicated; L53.9 Erythematous condition, unspecified; I73.00 Raynaud's syndrome without gangrene; F41.9 Anxiety disorder, unspecified; E07.9 Disorder of thyroid, unspecified; M19.90 Unspecified osteoarthritis, unspecified site; G51.0 Bell's palsy; Z79.01 Long term (current) use of anticoagulants; Z79.890 Hormone replacement therapy; Z79.899 Other long term (current) drug therapy; Z79.891 Long term (current) use of opiate analgesic; Z88.8 Allergy status to other drugs, medicaments and biological substances
CPT/HCPCS: 93312; 93320; 93325; 92960; 80048; J2250; J1940; J2001; J3010; J2704

== ENCOUNTER 2020-08-15 11:11 | Day surgery (SDC) | payer MEDICARE ==
[2020-08-12 11:42] VITALS: BMI 30.4
[~2020-08-15 11:11] MED LIST changes: +LACTATED RINGERS 1,000 ML IV SCH; -SODIUM CHLORIDE 0.9% 1,000 ML IV SCH
[2020-08-15 12:48] VITALS: TEMP 98.3
[2020-08-15] MEDS ORDERED: LIDOCAINE 1% (10MG/ML) FOR IV START INTRADERMA ONE (12:54)
[2020-08-15] MEDS ORDERED: PROPOFOL 10 MG/ML 50 ML VIAL IV ONE (13:56)
[2020-08-15] MEDS ORDERED: LIDOCAINE 1% INJ 10MG/ML (20 ML MDV) ONE (13:56)
--- NOTE | 2020-08-15 13:59 | P.GSHP ---
History of Present Illness H&P Date: 08/15/20 Chief Complaint: GI bleed This 64-year-old male been safe for EGD and colonoscopy. Patient has issues anemia and GI bleed. Past Medical History Past Medical History: Atrial Fibrillation, Heart Failure, Hypertension, Osteoarthritis (OA), Thyroid Disorder Additional Past Medical History / Comment(s): having dk colored stools, anemia,received 1rst dose of Moderna vaccine,Had upper respitory infection May 2020 tx with antibiotics, had negative covid test, chronic pain low back, spinal stenosis, past Dimas's palsy. History of Any Multi-Drug Resistant Organisms: None Reported Past Surgical History: Hernia Repair Additional Past Surgical History / Comment(s): CARROLL,Abdominal hernia repair, R thigh fatty tumor removed, colonoscopies, epidural injections low back. Past Anesthesia/Blood Transfusion Reactions: No Reported Reaction Smoking Status: Current every day smoker - Past Family History Father Family Medical History: Hypertension Additional Family Medical History / Comment(s): heart valve replacements. Medications and Allergies Home Medications Medication Instructions Recorded Confirmed Type HYDROcodone/APAP 10-325MG [[place] 1 tab PO QID PRN 07/05/17 08/15/20 History 10-325] Levothyroxine Sodium [Synthroid] 100 mcg PO QAM 07/05/17 08/15/20 History Omeprazole 40 mg PO DAILY 03/17/20 08/15/20 History Apixaban [Eliquis] 5 mg PO BID #180 tab 03/23/20 08/15/20 Rx Potassium Chloride 10 meq PO BID 06/06/20 08/15/20 History QUEtiapine [SEROquel] 50 mg PO HS 06/06/20 08/15/20 History Furosemide [Lasix] 40 mg PO Q2D 08/12/20 08/15/20 History lisinopriL [Zestril] 40 mg PO QAM 08/12/20 08/15/20 History nadoloL [Corgard] 40 mg PO QAM 08/12/20 08/15/20 History Allergies Allergy/AdvReac Type Severity Reaction Status Date / Time cholesterol meds AdvReac See Uncoded 08/15/20 12:38 comments Surgical - Exam Vital Signs Temp Pulse Resp BP Pulse Ox 98.3 F 94 18 111/68 100 08/15/20 12:46 08/15/20 12:46 08/15/20 12:46 08/15/20 12:46 08/15/20 12:46 - General well developed, well nourished, no distress - Eyes PERRL - ENT normal pinna - Neck no masses - Respiratory normal expansion - Cardiovascular Rhythm: regular - Abdomen Abdomen: soft, non tender Assessment and Plan Assessment: GI bleed. We'll perform EGD and colonoscopy
--- NOTE | 2020-08-15 14:29 | P.OP ---
Date of Procedure: 08/15/20 Preoperative Diagnosis: Anemia, GI bleed Postoperative Diagnosis: Antral gastritis Cecal polyp Right colon polyp Procedure(s) Performed: EGD Colonoscopy Anesthesia: MAC Surgeon: Elmer Corbett Pathology: other (Antrum,) Condition: stable Disposition: PACU Description of Procedure: The patient's placed on the endoscopy table in the lateral position. He received IV sedation. The gastro-/oropharynx passed in the esophagus into the stomach. Scope was placed through the pylorus. The first and second portion of the duodenum appeared normal. Scope was then brought back the antrum this. Mildly inflamed. A biopsies performed. The scope was then retroflexed and the remainder of the stomach appeared normal. There is no significant hiatal hernia. The GE junction was at 47 is. The distal esophagus. Normal. The proximal esophagus appeared normal. Scope was withdrawn for patient. Next digital rectal exam was performed which revealed a patulous anus. The flexible colonoscope was then placed patient anus passed rotator colon. The ileocecal valve in the cecum there was a small polyp seen this removed with the forcep. Further brought back and then in the ascending colon there was another polyp seen in the snare. The remainder the ascending colon transverse colon and descending colon appeared normal. Scope was then brought back into the sigmoid colon. This appeared normal. Scope was withdrawn rectum was normal. Scope withdrawn. There is no evidence of any GI bleed. His possible that the patient had bleeding from his colon polyp or antral gastritis.
[2020-08-15 14:36] VITALS: RESP 16
[2020-08-15 14:47] VITALS: BP 116/77; PULSE 92
== END 2020-08-15 15:16 | disposition home or self-care (01) ==
LOC: ORWHC2ENDO 11:11
PROVIDERS: ATTEND Surgery
DX: K29.50 Unspecified chronic gastritis without bleeding (principal); D12.0 Benign neoplasm of cecum; D12.2 Benign neoplasm of ascending colon; D64.9 Anemia, unspecified; I48.91 Unspecified atrial fibrillation; I11.0 Hypertensive heart disease with heart failure; I50.9 Heart failure, unspecified; M19.90 Unspecified osteoarthritis, unspecified site; E03.9 Hypothyroidism, unspecified; F17.210 Nicotine dependence, cigarettes, uncomplicated; Z79.890 Hormone replacement therapy; Z79.899 Other long term (current) drug therapy; Z82.49 Family history of ischemic heart disease and other diseases of the circulatory system; Z88.8 Allergy status to other drugs, medicaments and biological substances
CPT/HCPCS: 45385; 43239; J2001; J2704; 88305

== ENCOUNTER 2020-10-14 12:49 | Inpatient (IN) | payer MEDICARE ==
[2020-10-14 14:00] LABS: Anisocytosis Slight; Basophils % (A) 2 %; Eosinophils # (A) 0.1 k/uL (0-0.7); Eosinophils % (A) 2 %; Hypochromasia Marked; Lymphocytes # (A) 0.7 k/uL (1.0-4.8); Lymphocytes % (A) 30 %; MCH 30.1 pg (25.0-35.0); MCHC 30.8 g/dL (31.0-37.0); MCV 97.8 fL (80.0-100.0); Macrocytosis Slight; Mean Platelet Volume 8.7; Monocytes # (A) 0.2 k/uL (0-1.0); Monocytes % (A) 8 %; Neutrophils # (A) 1.3 k/uL (1.3-7.7); Neutrophils % (A) 55 %; Platelet Count 174 k/uL (150-450); Poikilocytosis Slight; RBC 2.04 m/uL (4.30-5.90); RDW 16.7 % (11.5-15.5); WBC 2.3 k/uL (3.8-10.6)
[2020-10-14 14:02] LABS: HCT 19.9 % (39.0-53.0); HGB 6.1 gm/dL (13.0-17.5)
[2020-10-14 14:05] LABS: INR 1.3 (<1.2)
[2020-10-14 14:06] LABS: Partial Thromboplastin Time 27.2 sec (22.0-30.0); Prothrombin Time 13.5 sec (9.0-12.0)
[2020-10-14 14:13] LABS: African American GFR (CKD) >90 (>60 ml/min/1.73 sqM); Anion Gap 9 mmol/L; Blood Urea Nitrogen 9 mg/dL (9-20); Calcium 8.3 mg/dL (8.4-10.2); Carbon Dioxide 24 mmol/L (22-30); Chloride 96 mmol/L (98-107); Glucose 114 mg/dL (74-99); Non-African American GFR(CKD) 90 (>60 ml/min/1.73 sqM); Potassium 4.3 mmol/L (3.5-5.1); Sodium 129 mmol/L (137-145)
[2020-10-14] MEDS ORDERED: PANTOPRAZOLE 40 MG/10 ML VIAL IVP STA (14:19)
--- NOTE | 2020-10-14 14:19 | ED ---
General Adult HPI - General Chief complaint: Weakness Stated complaint: lab recheck-sent by PCP Time Seen by Provider: 10/14/20 13:31 Source: patient Mode of arrival: ambulatory Limitations: no limitations - History of Present Illness Initial comments: Dictation was produced using [employer] dictation software. please excuse any grammatical, word or spelling errors. Chief Complaint: 65-year-old male sent in by PCP for anemia History of Present Illness: 65-year-old male who has past medical history of A. fib. He takes anechoic evaluation medications. He's had struggles with anemia for several months now. Patient has had extensive workup for GI bleed. She today for outpatient anemia. He had a hemoglobin those measured to be 5.7. Blood work was drawn by primary care physician 5 days ago. Patient states she's been feeling weak and tired. The ROS documented in this emergency department record has been reviewed and confirmed by me. Those systems with pertinent positive or negative responses have been documented in the HPI. All other systems are other negative and/or noncontributory. PHYSICAL EXAM: General Impression: Alert and oriented x3, not in acute distress HEENT: Normocephalic atraumatic, extra-ocular movements intact, pupils equal and reactive to light bilaterally, mucous membranes moist. Cardiovascular: Heart regular rate and rhythm Chest: Able to complete full sentences, no retractions, no tachypnea Abdomen: abdomen soft, non-tender, non-distended, no organomegaly Musculoskeletal: Pulses present and equal in all extremities, no peripheral edema Motor: no focal deficits noted Neurological: CN II-XII grossly intact, no focal motor or sensory deficits noted Skin: Intact with no visualized rashes Psych: Normal affect and mood Rectal exam: No gross blood. ED course: The 65-year-old male presents with abnormal hemoglobin performed on outpatient basis 5 days ago. As upon arrival are within acceptable limits. Laboratory evaluation obtained. CBC shows hemoglobin of 6.1. Coag panel is unremarkable. Metabolic panel shows sodium of 129. Patient transfuse 1 unit of packed red blood cells. Patient be admitted. Case discussed Dr. Light EKG interpretation: Ventricular rate 84, A. fib, QRS 92, QTc 465. No [place] prolongation, no QTC prolongation, no ST or T-wave changes noted. EKG compared to 06/10/2020 showing no changes. Overall, this EKG is unremarkable - Related Data Home Medications Medication Instructions Recorded Confirmed HYDROcodone/APAP 10-325MG [[place] 1 tab PO QID PRN 07/05/17 08/15/20 10-325] Levothyroxine Sodium [Synthroid] 100 mcg PO QAM 07/05/17 08/15/20 Omeprazole 40 mg PO DAILY 03/17/20 08/15/20 Potassium Chloride 10 meq PO BID 06/06/20 08/15/20 QUEtiapine [SEROquel] 50 mg PO HS 06/06/20 08/15/20 Furosemide [Lasix] 40 mg PO Q2D 08/12/20 08/15/20 lisinopriL [Zestril] 40 mg PO QAM 08/12/20 08/15/20 nadoloL [Corgard] 40 mg PO QAM 08/12/20 08/15/20 Previous Rx's Medication Instructions Recorded Apixaban [Eliquis] 5 mg PO BID #180 tab 03/23/20 Allergies Allergy/AdvReac Type Severity Reaction Status Date / Time cholesterol meds AdvReac See Uncoded 10/14/20 13:12 comments Review of Systems ROS Statement: Those systems with pertinent positive or pertinent negative responses have been documented in the HPI. ROS Other: All systems not noted in ROS Statement are negative. Past Medical History Past Medical History: Atrial Fibrillation, Heart Failure, Hypertension, Osteoarthritis (OA), Thyroid Disorder Additional Past Medical History / Comment(s): having dk colored stools, anemia,r eceived 1rst dose of Moderna vaccine,Had upper respitory infection May 2020 tx with antibiotics, had negative covid test, chronic pain low back, spinal stenosis, past Dimas's palsy. History of Any Multi-Drug Resistant Organisms: None Reported Past Surgical History: Hernia Repair Additional Past Surgical History / Comment(s): CARROLL,Abdominal hernia repair, R thigh fatty tumor removed, colonoscopies, epidural injections low back. Past Anesthesia/Blood Transfusion Reactions: No Reported Reaction Past Psychological History: Anxiety Smoking Status: Current every day smoker Past Alcohol Use History: Occasional Past Drug Use History: None Reported - Past Family History Father Family Medical History: Hypertension Additional Family Medical History / Comment(s): heart valve replacements. General Exam Limitations: no limitations Course Vital Signs 10/14/20 10/14/20 13:08 14:23 Temperature 98.8 F Pulse Rate 77 79 Respiratory 18 18 Rate Blood Pressure 118/70 109/77 O2 Sat by Pulse 97 100 Oximetry Medical Decision Making - Lab Data Result diagrams: 10/14/20 13:40 10/14/20 13:40 Lab Results 10/14/20 10/14/20 10/14/20 Range/Units 13:40 13:40 13:40 WBC 2.3 L (3.8-10.6) k/uL RBC 2.04 L (4.30-5.90) m/uL Hgb 6.1 L* (13.0-17.5) gm/dL Hct 19.9 L* (39.0-53.0) % MCV 97.8 (80.0-100.0) fL MCH 30.1 (25.0-35.0) pg MCHC 30.8 L (31.0-37.0) g/dL RDW 16.7 H (11.5-15.5) % Plt Count 174 (150-450) k/uL MPV 8.7 Neutrophils % 55 % Lymphocytes % 30 % Monocytes % 8 % Eosinophils % 2 % Basophils % 2 % Neutrophils # 1.3 (1.3-7.7) k/uL Lymphocytes # 0.7 L (1.0-4.8) k/uL Monocytes # 0.2 (0-1.0) k/uL Eosinophils # 0.1 (0-0.7) k/uL Basophils # 0.0 (0-0.2) k/uL Hypochromasia Marked Poikilocytosis Slight Anisocytosis Slight Macrocytosis Slight PT 13.5 H (9.0-12.0) sec INR 1.3 H (<1.2) APTT 27.2 (22.0-30.0) sec Sodium 129 L (137-145) mmol/L Potassium 4.3 (3.5-5.1) mmol/L Chloride 96 L (98-107) mmol/L Carbon Dioxide 24 (22-30) mmol/L Anion Gap 9 mmol/L BUN 9 (9-20) mg/dL Creatinine 0.88 (0.66-1.25) mg/dL Est GFR (CKD-EPI)AfAm >90 (>60 ml/min/1.73 sqM) Est GFR (CKD-EPI)NonAf 90 (>60 ml/min/1.73 sqM) Glucose 114 H (74-99) mg/dL Calcium 8.3 L (8.4-10.2) mg/dL Stool Occult Blood (Negative) Blood Type Blood Type Recheck Bld Type Recheck Status Antibody Screen Spec Expiration Date 10/14/20 10/14/20 Range/Units 13:40 14:16 WBC (3.8-10.6) k/uL RBC (4.30-5.90) m/uL Hgb (13.0-17.5) gm/dL Hct (39.0-53.0) % MCV (80.0-100.0) fL MCH (25.0-35.0) pg MCHC (31.0-37.0) g/dL RDW (11.5-15.5) % Plt Count (150-450) k/uL MPV Neutrophils % % Lymphocytes % % Monocytes % % Eosinophils % % Basophils % % Neutrophils # (1.3-7.7) k/uL Lymphocytes # (1.0-4.8) k/uL Monocytes # (0-1.0) k/uL Eosinophils # (0-0.7) k/uL Basophils # (0-0.2) k/uL Hypochromasia Poikilocytosis Anisocytosis Macrocytosis PT (9.0-12.0) sec INR (<1.2) APTT (22.0-30.0) sec Sodium (137-145) mmol/L Potassium (3.5-5.1) mmol/L Chloride (98-107) mmol/L Carbon Dioxide (22-30) mmol/L Anion Gap mmol/L BUN (9-20) mg/dL Creatinine (0.66-1.25) mg/dL Est GFR (CKD-EPI)AfAm (>60 ml/min/1.73 sqM) Est GFR (CKD-EPI)NonAf (>60 ml/min/1.73 sqM) Glucose (74-99) mg/dL Calcium (8.4-10.2) mg/dL Stool Occult Blood Negative (Negative) Blood Type O Positive Blood Type Recheck No Previous Record Bld Type Recheck Status CABO Indicated Antibody Screen NEGATIVE Spec Expiration Date 10/17/202012/2020 Disposition Clinical Impression: Symptomatic anemia Disposition: ADMITTED IP TO THIS HOSP Condition: Fair Referrals: Lucia Light DO [Primary Care Provider] - 1-2 days
[2020-10-14] MEDS ORDERED: ACETAMINOPHEN TAB 325 MG TAB PO PRN (14:34)
[2020-10-14] MEDS ORDERED: NALOXONE 0.4 MG/ML 1 ML VIAL IV PRN (14:34)
[2020-10-14] MEDS ORDERED: ONDANSETRON 4 MG/2 ML VIAL IVP PRN (14:34)
[2020-10-14] MEDS: SODIUM CHLORIDE 0.9% 1,000 ML IV SCH ×2 (19:01→22:01)
[2020-10-14] MEDS ORDERED: lisinopriL 20 MG TAB PO SCH (21:00)
[2020-10-14] MEDS ORDERED: FUROSEMIDE 40 MG TAB PO SCH (21:00)
[2020-10-14] MEDS ORDERED: APIXABAN 5 MG TAB PO SCH (21:00)
[2020-10-14] MEDS ORDERED: PANTOPRAZOLE 40 MG TABLET PO SCH (21:00)
[2020-10-14] MEDS: METOPROLOL SUCCINATE (ER) 25 MG TAB.ER.24H PO SCH (21:58)
[2020-10-14] MEDS: HYDROcodone/APAP 10-325MG 1 EACH TAB PO PRN (21:58)
[2020-10-14] MEDS: QUEtiapine 50 MG TAB PO SCH (23:46)
[2020-10-15] MEDS: LEVOTHYROXINE 100 MCG TAB PO SCH (05:23)
[2020-10-15] MEDS: SODIUM CHLORIDE 0.9% 1,000 ML IV SCH ×2 (08:05→13:08)
[2020-10-15] MEDS: FUROSEMIDE 40 MG TAB PO SCH (08:06)
[2020-10-15] MEDS: METOPROLOL SUCCINATE (ER) 25 MG TAB.ER.24H PO SCH (08:06)
[2020-10-15] MEDS: PANTOPRAZOLE 40 MG TABLET PO SCH (08:06)
[2020-10-15] MEDS: lisinopriL 20 MG TAB PO SCH (08:06)
[2020-10-15 08:25] LABS: Anisocytosis Slight; Hypochromasia Marked; MCH 30.7 pg (25.0-35.0); MCHC 32.4 g/dL (31.0-37.0); Macrocytosis Slight; Mean Platelet Volume 7.5; Platelet Count 129 k/uL (150-450); Poikilocytosis Slight; RBC 1.83 m/uL (4.30-5.90); RDW 18.6 % (11.5-15.5); WBC 1.6 k/uL (3.8-10.6)
[2020-10-15 08:40] LABS: HCT 17.3 % (39.0-53.0); HGB 5.6 gm/dL (13.0-17.5)
[2020-10-15 08:48] LABS: ALT 11 U/L (4-49); AST 25 U/L (17-59); African American GFR (CKD) >90 (>60 ml/min/1.73 sqM); Albumin 3.3 g/dL (3.5-5.0); Albumin/Globulin Ratio 1.7; Alkaline Phosphatase 121 U/L (38-126); Anion Gap 5 mmol/L; Blood Urea Nitrogen 9 mg/dL (9-20); Calcium 8.1 mg/dL (8.4-10.2); Carbon Dioxide 28 mmol/L (22-30); Chloride 99 mmol/L (98-107); Glucose 101 mg/dL (74-99); Non-African American GFR(CKD) >90 (>60 ml/min/1.73 sqM); Sodium 132 mmol/L (137-145); Total Bilirubin 1.6 mg/dL (0.2-1.3); Total Protein 5.3 g/dL (6.3-8.2)
[2020-10-15] MEDS: HYDROcodone/APAP 10-325MG 1 EACH TAB PO PRN ×2 (10:03→15:36)
[2020-10-15 10:47] LABS: Reticulocyte % 3.7 % (0.5-2.0)
[2020-10-15 14:08] LABS: % Iron Saturation 10.97 (15.00-50.00)
--- NOTE | 2020-10-15 14:19 | P.CONS ---
History of Present Illness - Reason for Consult Consult date: 10/15/20 anemia Requesting physician: Cosmo Light - Chief Complaint Anemia, weakness - History of Present Illness This a 65-year-old white male patient who presented to the emergency department with complaints of weakness and low hemoglobin done at his PCP office. He has a past medical history including atrial fibrillation on Eliquis, heart failure, hypertension, alcohol dependence and thyroid disorder. Was noted to have a hemoglobin of 5.6 done by his PCP and was told to go to the emergency department. On admission he had a hemoglobin of 6.1 was transfused 1 unit of IN BCs. The patient states he has had some dark stools, however not black or tarry. Denies any bright red blood in his stool. Denies abdominal pain, nausea, or vomiting. He denies taking any NSAIDs, he denies any oral iron, states he was supposed to get an iron infusion. He was recently admitted and had a EGD and colonoscopy 08/15/[address] Corbett for anemia and dark stool, findings included antral gastritis and a cecal and right colon polyp. The patient states he has had several endoscopies within the last few years, however denies any previous small bowel capsule endoscopy. He denies following with hematology. Today's labs BPC 1.6, hemoglobin 5.6, hematocrit 17.3, platelet count 129,000, INR 1.3, total bilirubin 1.6, alkaline phosphatase 121, AST 25, ALT 11, negative focal stool. Review of Systems REVIEW OF SYSTEMS: CARDIOPULMONARY: No chest pain or shortness of breath. Gastrointestinal: No abdominal pain. No nausea or vomiting. No hematemesis, coffee-ground emesis. No rectal bleeding, or melena. GENITOURINARY: No dysuria or hematuria. MUSCULOSKELETAL: Reports normal range of motion., Joint pain. SKIN: No rashes. No jaundice. ENDOCRINE: No chills, fevers. No excessive weight gain or loss. No polydipsia or polyuria. PSYCHIATRIC: Unremarkable. NEUROLOGY: No change in mental status. Denies dizziness, headache. ENT: Vision unremarkable. CONSTITUTIONAL: No recent weight loss. No fever, chills, night sweats. Weakness and fatigue. Past Medical History Past Medical History: Atrial Fibrillation, Heart Failure, Hypertension, Osteoarthritis (OA), Thyroid Disorder Additional Past Medical History / Comment(s): having dk colored stools, a nemia,received 1rst dose of Moderna vaccine,Had upper respitory infection May 2020 tx with antibiotics, had negative covid test, chronic pain low back, spinal stenosis, past Dimas's palsy. History of Any Multi-Drug Resistant Organisms: None Reported Past Surgical History: Hernia Repair Additional Past Surgical History / Comment(s): CARROLL,Abdominal hernia repair, R thigh fatty tumor removed, colonoscopies, epidural injections low back. Past Anesthesia/Blood Transfusion Reactions: No Reported Reaction Past Psychological History: Anxiety Smoking Status: Current every day smoker Past Alcohol Use History: Occasional Additional Past Alcohol Use History / Comment(s): states started smoking age 19, is trying to quit, now smokes about 5 cigarettes daily, states drinks 4-5 beers a day Past Drug Use History: None Reported - Past Family History Father Family Medical History: Hypertension Additional Family Medical History / Comment(s): heart valve replacements. Medications and Allergies Home Medications Medication Instructions Recorded Confirmed Type HYDROcodone/APAP 10-325MG [[place] 1 tab PO QID PRN 07/05/17 10/14/20 History 10-325] Apixaban [Eliquis] 5 mg PO BID #180 tab 03/23/20 10/14/20 Rx Potassium Chloride 10 meq PO BID 06/06/20 10/14/20 History QUEtiapine [SEROquel] 50 - 100 mg PO HS 06/06/20 10/14/20 History Furosemide [Lasix] 40 mg PO DAILY 08/12/20 10/14/20 History lisinopriL [Zestril] 40 mg PO DAILY 08/12/20 10/14/20 History Levothyroxine Sodium [Synthroid] 100 mcg PO DAILY 10/14/20 10/14/20 History Nadolol [Corgard] 40 mg PO DAILY 10/14/20 10/14/20 History Omeprazole 40 mg PO DAILY 10/14/20 10/14/20 History Allergies Allergy/AdvReac Type Severity Reaction Status Date / Time cholesterol meds AdvReac See Uncoded 10/14/20 14:48 comments Physical Exam Vitals: Vital Signs Temp Pulse Pulse Resp BP BP Pulse Ox 10/15/20 09:57 97.6 F 76 18 106/72 99 10/15/20 08:00 18 10/15/20 07:49 98.2 F 87 18 110/71 94 L 10/15/20 02:31 98.5 F 73 16 105/61 10/14/20 22:02 98.1 F 80 18 113/74 10/14/20 21:00 70 16 119/87 100 10/14/20 19:08 82 16 121/75 96 10/14/20 18:59 98 F 82 18 117/70 96 10/14/20 16:53 98.3 F 70 18 109/72 97 10/14/20 16:23 98 F 70 16 96/74 98 10/14/20 16:13 98.3 F 68 16 113/79 98 10/14/20 14:23 79 18 109/77 100 10/14/20 13:08 98.8 F 77 18 118/70 97 Intake and Output 10/14/20 10/15/20 10/15/20 22:59 06:59 14:59 Intake Total 0 0 Balance 0 0 Intake: Blood Product 0 0 Rc As-1 Unit 0 [id number] Rc Pheresis 2 As3 Unit 0 [id number] Other: Weight 124.284 kg General appearance: The patient is alert, oriented, appears in no acute distress. Pale. HET: Head is normocephalic and atraumatic. Conjunctiva pink. Sclera anicteric. Neck: Supple without lymphadenopathy. Trachea midline. Heart: S1 S2. Regular rate and rhythm. Lungs: Clear to auscultation. Abdomen: Soft, nontender, nondistended with bowel sounds. No guarding or rigidity. Skin: No rashes. No jaundice. Extremities: Normal skin color and turgor. No pedal edema. Neurological: No focal deficits. Alert and oriented 3.. Results CBC & Chem 7: 10/15/20 08:00 10/15/20 08:00 Labs: Abnormal Lab Results - Last 24 Hours (Table) 10/14/20 10/14/20 10/14/20 Range/Units 13:40 13:40 13:40 WBC 2.3 L (3.8-10.6) k/uL RBC 2.04 L (4.30-5.90) m/uL Hgb 6.1 L* (13.0-17.5) gm/dL Hct 19.9 L* (39.0-53.0) % MCHC 30.8 L (31.0-37.0) g/dL RDW 16.7 H (11.5-15.5) % Plt Count (150-450) k/uL Lymphocytes # 0.7 L (1.0-4.8) k/uL PT 13.5 H (9.0-12.0) sec INR 1.3 H (<1.2) Sodium 129 L (137-145) mmol/L Chloride 96 L (98-107) mmol/L Glucose 114 H (74-99) mg/dL Calcium 8.3 L (8.4-10.2) mg/dL Total Bilirubin (0.2-1.3) mg/dL Total Protein (6.3-8.2) g/dL Albumin (3.5-5.0) g/dL Crossmatch 10/14/20 10/15/20 10/15/20 Range/Units 13:40 08:00 08:00 WBC 1.6 L (3.8-10.6) k/uL RBC 1.83 L (4.30-5.90) m/uL Hgb 5.6 L* (13.0-17.5) gm/dL Hct 17.3 L* (39.0-53.0) % MCHC (31.0-37.0) g/dL RDW 18.6 H (11.5-15.5) % Plt Count 129 L (150-450) k/uL Lymphocytes # (1.0-4.8) k/uL PT (9.0-12.0) sec INR (<1.2) Sodium 132 L (137-145) mmol/L Chloride (98-107) mmol/L Glucose 101 H (74-99) mg/dL Calcium 8.1 L (8.4-10.2) mg/dL Total Bilirubin 1.6 H (0.2-1.3) mg/dL Total Protein 5.3 L (6.3-8.2) g/dL Albumin 3.3 L (3.5-5.0) g/dL Crossmatch See Detail Assessment and Plan (1) Symptomatic anemia Narrative/Plan: 65-year-old male presented to the emergency department for low hemoglobin and weakness. Patient has a history of alcohol abuse, heart failure, hypertension, hypothyroidism and atrial fibrillation on Eliquis, last dose yesterday evening. He presented to the emergency department with a hemoglobin of 6.1 and was ahn sfused 1 unit PRBC transfusion, repeat hemoglobin this morning was 5.6 and another unit of PRBC was ordered. He had a negative occult stool. His labs are significant for pancytopenia. He had previous workup with an EGD and colonoscopy on 08/15/2020 which showed antral gastritis and cecal and right colon polyp, no evidence bleeding or old blood noted. He denies any current iron use, he is supposed to get an iron infusion. He denies NSAID use. Is reporting dark stool but not black or bloody. No abdominal pain, nausea, or vomiting. We'll plan on small bowel video capsule endoscopy tomorrow morning, patient will be given magnesium citrate this evening and nothing by mouth after midnight. Current Visit: Yes Status: Acute Code(s): D64.9 - ANEMIA, UNSPECIFIED SNOMED Code(s): 675552352 (2) Pancytopenia Narrative/Plan: hematology consulted Current Visit: Yes Status: Acute Code(s): D61.818 - OTHER PANCYTOPENIA SNOMED Code(s): 491914875 (3) Atrial fibrillation Narrative/Plan: Currently on Eliquis, which is on hold. Last dose 10/14/20. Cardiology following. Current Visit: No Status: Acute Code(s): I48.91 - UNSPECIFIED ATRIAL FIBRILLATION SNOMED Code(s): 80814800 Plan: 1. Clear liquid diet, NPO after midnight 2. Magnesium Citrate this evening 3. Discontinue Eliquis 4. Anemia panel ordered on pre-transfusion blood 5. Hematology consulted 6. Unit PRBC transfusion order 7. Repeat CBC after transfusion, then every 6 hours 3 8. Daily CBC, transfuse for hemoglobin less than 7 9. Protonix 40 mg twice a day 10. Avoid NSAIDs 11. Small bowel video capsule endoscopy tomorrow morning Thank you for this consultation, we will continue to follow Dr. Murcia I agree with the dictator's note, documented as a scribe by Niki Davis.
[2020-10-15 14:50] LABS: Anisocytosis Slight; Hypochromasia Marked; MCH 29.5 pg (25.0-35.0); MCHC 30.7 g/dL (31.0-37.0); MCV 95.9 fL (80.0-100.0); Macrocytosis Slight; Mean Platelet Volume 8.5; Platelet Count 111 k/uL (150-450); Poikilocytosis Slight; RBC 2.08 m/uL (4.30-5.90); RDW 18.4 % (11.5-15.5); WBC 1.6 k/uL (3.8-10.6)
[2020-10-15 14:52] LABS: HCT 19.9 % (39.0-53.0); HGB 6.1 gm/dL (13.0-17.5)
[2020-10-15] MEDS ORDERED: MAGNESIUM CITRATE 296 ML BOTTLE PO ONE (19:00)
[2020-10-15 19:34] LABS: Ferritin 23.5 ng/mL (22.0-322.0)
[2020-10-15 19:35] LABS: Folate, Serum 5.7 ng/mL
[2020-10-15 20:31] LABS: Anisocytosis Slight; HGB 7.3 gm/dL (13.0-17.5); Hypochromasia Marked; MCH 30.3 pg (25.0-35.0); MCHC 31.6 g/dL (31.0-37.0); MCV 95.8 fL (80.0-100.0); Macrocytosis Slight; Mean Platelet Volume 8.2; Platelet Count 130 k/uL (150-450); Poikilocytosis Moderate; RDW 18.2 % (11.5-15.5); WBC 2.2 k/uL (3.8-10.6)
[2020-10-15] MEDS: QUEtiapine 50 MG TAB PO SCH (21:28)
[2020-10-16] MEDS: SODIUM CHLORIDE 0.9% 1,000 ML IV SCH ×3 (00:03→17:47)
[2020-10-16] MEDS: LEVOTHYROXINE 100 MCG TAB PO SCH (05:40)
[2020-10-16] MEDS: lisinopriL 20 MG TAB PO SCH ×2 (07:10→09:50)
[2020-10-16] MEDS: PANTOPRAZOLE 40 MG TABLET PO SCH (07:10)
[2020-10-16] MEDS ORDERED: SIMETHICONE 40 MG/0.6 ML DROPS 2,000 MG/30 ML BOTTLE PO ONE (07:20)
[2020-10-16] MEDS ORDERED: THIAMINE 100 MG/ML 2 ML VIAL IM STA (07:21)
[2020-10-16] MEDS ORDERED: LORazepam 2 MG/ML INJ IV PRN ×2 (07:21)
--- NOTE | 2020-10-16 07:35 | P.HPIM ---
History of Present Illness H&P Date: 10/15/20 Chief Complaint: anemia Nomi Hernadez is a 65 yo M with PMH of A fib on eliquis, CHF, HTN who presented to the emergency department with complaints of weakness and low hemog lobin done at his PCP office. He was found to have a Hgb of 5.6 as an outpatient so came to the hospital. He was recently admitted and had a EGD and colonoscopy 08/15/[address] Corbett for anemia and dark stool, findings included antral gastritis and a cecal and right colon polyp. He has had some dark stools but denies dark tarry stools or bright red blood, no abdominal pain or vomiting. On admission he had a hemoglobin of 6.1 and was transfused 1 unit of PRBCs. The patient states he has had several endoscopies within the last few years, however denies any previous small bowel capsule endoscopy. FOBT negative on admission. Pt complains that he has had multiple admissions for anemia since starting the eliquis and iis asking about stopping this medication. Review of Systems Constitutional: Reports malaise, Reports weakness Past Medical History Past Medical History: Atrial Fibrillation, Heart Failure, Hypertension, Osteoarthritis (OA), Thyroid Disorder Additional Past Medical History / Comment(s): having dk colored stools, anemia,received 1rst dose of Moderna vaccine,Had upper respitory infection May 2020 tx with antibiotics, had negative covid test, chronic pain low back, s ejramie stenosis, past Dimas's palsy. History of Any Multi-Drug Resistant Organisms: None Reported Past Surgical History: Hernia Repair Additional Past Surgical History / Comment(s): CARROLL,Abdominal hernia repair, R thigh fatty tumor removed, colonoscopies, epidural injections low back. Past Anesthesia/Blood Transfusion Reactions: No Reported Reaction Past Psychological History: Anxiety Smoking Status: Current every day smoker Past Alcohol Use History: Occasional Additional Past Alcohol Use History / Comment(s): states started smoking age 19, is trying to quit, now smokes about 5 cigarettes daily, states drinks 4-5 beers a day Past Drug Use History: None Reported - Past Family History Father Family Medical History: Hypertension Additional Family Medical History / Comment(s): heart valve replacements. Medications and Allergies Home Medications Medication Instructions Recorded Confirmed Type HYDROcodone/APAP 10-325MG [[place] 1 tab PO QID PRN 07/05/17 10/14/20 History 10-325] Apixaban [Eliquis] 5 mg PO BID #180 tab 03/23/20 10/14/20 Rx Potassium Chloride 10 meq PO BID 06/06/20 10/14/20 History QUEtiapine [SEROquel] 50 - 100 mg PO HS 06/06/20 10/14/20 History Furosemide [Lasix] 40 mg PO DAILY 08/12/20 10/14/20 History lisinopriL [Zestril] 40 mg PO DAILY 08/12/20 10/14/20 History Levothyroxine Sodium [Synthroid] 100 mcg PO DAILY 10/14/20 10/14/20 History Nadolol [Corgard] 40 mg PO DAILY 10/14/20 10/14/20 History Omeprazole 40 mg PO DAILY 10/14/20 10/14/20 History Allergies Allergy/AdvReac Type Severity Reaction Status Date / Time cholesterol meds AdvReac See Uncoded 10/14/20 14:48 comments Physical Exam Vitals: Vital Signs Temp Pulse Pulse Resp BP BP Pulse Ox 10/16/20 07:26 98.1 F 85 18 113/80 97 10/16/20 03:50 98.8 F 72 18 110/71 99 10/16/20 01:54 98.7 F 90 15 100/63 99 10/16/20 00:23 98.4 F 72 18 101/68 97 10/15/20 23:53 98.3 F 89 18 128/84 100 10/15/20 23:43 98.9 F 76 18 103/66 10/15/20 23:36 98.7 F 89 18 104/61 99 10/15/20 19:47 98.2 F 18 121/70 10/15/20 19:30 18 10/15/20 18:13 98.9 F 70 18 117/72 100 10/15/20 16:35 98.3 F 74 18 109/78 100 10/15/20 16:05 99.2 F 68 18 122/81 96 10/15/20 15:55 99.9 F H 74 18 102/54 98 10/15/20 14:00 98.6 F 68 18 114/79 100 10/15/20 12:34 98.4 F 75 18 100/64 100 10/15/20 10:37 98.0 F 77 18 110/73 100 10/15/20 10:07 98.3 F 76 18 120/76 95 10/15/20 09:57 97.6 F 76 18 106/72 99 10/15/20 08:00 18 10/15/20 07:49 98.2 F 87 18 110/71 94 L Intake and Output 10/15/20 10/16/20 10/16/20 22:59 06:59 14:59 Intake Total 575 278 Balance 575 278 Intake: IV 300 Sodium Chloride 0.9% 1, 300 000 ml @ 120 mls/hr IV . Q8H20M [facility] Rx#:[id number] Blood Product 275 278 Rc Pheresis 2 As3 Unit 278 [id number] Rc Pheresis As-3 Unit 275 [id number] Other: # Voids 2 4 # Bowel Movements 2 General: well nourished, well developed, NAD. Vitals reviewed Eyes: PERRL, EOMI, conjunctiva normal HENT: normocephalic, mucus membranes moist Neck: supple, no JVD Lungs: normal respiratory effort, no wheezes or rales CV: Regular rate and rhythm, no murmur. Peripheral pulses 2+ Abdomen: soft, nondistended, no organomegaly Lymph: no cervical or axillary LAD Skin: warm and dry. Neuro: A&Ox3, normal mood and affect Results CBC & Chem 7: 10/15/20 20:15 10/15/20 08:00 Labs: Abnormal Lab Results - Last 24 Hours (Table) 10/14/20 10/15/20 10/15/20 Range/Units 13:40 08:00 08:00 WBC 1.6 L (3.8-10.6) k/uL RBC 1.83 L (4.30-5.90) m/uL Hgb 5.6 L* (13.0-17.5) gm/dL Hct 17.3 L* (39.0-53.0) % MCHC (31.0-37.0) g/dL RDW 18.6 H (11.5-15.5) % Plt Count 129 L (150-450) k/uL Retic Count (0.5-2.0) % Sodium (137-145) mmol/L Glucose (74-99) mg/dL Calcium (8.4-10.2) mg/dL Iron 43 L (65-175) ug/dL % Saturation 10.97 L (15.00-50.00) Total Bilirubin (0.2-1.3) mg/dL Total Protein (6.3-8.2) g/dL Albumin (3.5-5.0) g/dL Crossmatch See Detail 10/15/20 10/15/20 10/15/20 Range/Units 08:00 08:00 14:02 WBC 1.6 L (3.8-10.6) k/uL RBC 2.08 L (4.30-5.90) m/uL Hgb 6.1 L* (13.0-17.5) gm/dL Hct 19.9 L* (39.0-53.0) % MCHC 30.7 L (31.0-37.0) g/dL RDW 18.4 H (11.5-15.5) % Plt Count 111 L (150-450) k/uL Retic Count 3.7 H (0.5-2.0) % Sodium 132 L (137-145) mmol/L Glucose 101 H (74-99) mg/dL Calcium 8.1 L (8.4-10.2) mg/dL Iron (65-175) ug/dL % Saturation (15.00-50.00) Total Bilirubin 1.6 H (0.2-1.3) mg/dL Total Protein 5.3 L (6.3-8.2) g/dL Albumin 3.3 L (3.5-5.0) g/dL Crossmatch 10/15/20 Range/Units 20:15 WBC 2.2 L (3.8-10.6) k/uL RBC 2.40 L (4.30-5.90) m/uL Hgb 7.3 L (13.0-17.5) gm/dL Hct 23.0 L (39.0-53.0) % MCHC (31.0-37.0) g/dL RDW 18.2 H (11.5-15.5) % Plt Count 130 L (150-450) k/uL Retic Count (0.5-2.0) % Sodium (137-145) mmol/L Glucose (74-99) mg/dL Calcium (8.4-10.2) mg/dL Iron (65-175) ug/dL % Saturation (15.00-50.00) Total Bilirubin (0.2-1.3) mg/dL Total Protein (6.3-8.2) g/dL Albumin (3.5-5.0) g/dL Crossmatch Thrombosis Risk Factor Assmnt - Choose All That Apply Each Risk Factor Represents 2 Points: Age 61-74 years Thrombosis Risk Factor Assessment Total Risk Factor Score: 2 Thrombosis Risk Factor Assessment Level: Low Risk Assessment and Plan Plan: 1. Iron deficiency anemia. Secondary to unclear GI bleed. Transfuse PRBC to maintain Hgb above 7. GI consult. Hold eliquis and plan for endoscopy. Cardiology consult to explore risks and benefits of remaining on eliquis with mu ltiple GI bleeds in the last few months 2. Alcohol abuse. [facility] protocol for withdrawal symptoms 3. Chronic diastolic CHF. Continue lasix
[2020-10-16] MEDS: LORazepam 2 MG/ML INJ IV PRN ×2 (07:58→17:54)
[2020-10-16] MEDS: NICOTINE 14MG/24HR PATCH TRANSDERM SCH (07:58)
[2020-10-16 08:10] LABS: Anisocytosis Slight; HGB 7.3 gm/dL (13.0-17.5); Hypochromasia Moderate; MCH 31.2 pg (25.0-35.0); MCHC 33.2 g/dL (31.0-37.0); MCV 94.1 fL (80.0-100.0); Mean Platelet Volume 8.7; Platelet Count 104 k/uL (150-450); Poikilocytosis Moderate; RBC 2.34 m/uL (4.30-5.90); RDW 17.6 % (11.5-15.5); WBC 1.5 k/uL (3.8-10.6)
[2020-10-16 08:15] LABS: INR 1.3 (<1.2); Prothrombin Time 13.7 sec (9.0-12.0)
[2020-10-16] MEDS: HYDROcodone/APAP 10-325MG 1 EACH TAB PO PRN ×2 (09:49→22:01)
[2020-10-16] MEDS: METOPROLOL SUCCINATE (ER) 25 MG TAB.ER.24H PO SCH (09:49)
[2020-10-16] MEDS: FUROSEMIDE 40 MG TAB PO SCH (09:49)
--- NOTE | 2020-10-16 09:52 | P.PN ---
Subjective Progress Note Date: 10/16/20 Principal diagnosis: Symptomatic anemia Patient seen and examined lying in bed. Small bowel video capsule endoscopy was started this morning at 7:30. He states he's having loose bowels, that her orange, no blood noted. Denies any abdominal pain, nausea, or vomiting. Patient is status post 4 units of PRBC transfusion with a repeat hemoglobin is 7.3. Also after further discussion with the patient he has a known history of significant alcohol use. He states he drinks beer from 12 noon until 6 PM daily. He states he has been drinking over 50 years. He also states he does not plan on quitting drinking or smoking. Objective - Vital Signs Vital signs: Vital Signs Temp 98.1 F 10/16/20 07:26 Pulse 85 10/16/20 07:26 Resp 18 10/16/20 07:26 BP 113/80 10/16/20 07:26 Pulse Ox 97 10/16/20 07:26 Intake & Output 10/15/20 10/16/20 10/16/20 18:59 06:59 18:59 Intake Total 863 278 Balance 863 278 Intake: IV 300 Sodium Chloride 0.9% 1, 300 000 ml @ 120 mls/hr IV . Q8H20M [facility] Rx#:[id number] Blood Product 563 278 Rc Pheresis 2 As3 Unit 278 [id number] Rc Pheresis 2 As3 Unit 288 [id number] Rc Pheresis As-3 Unit 275 [id number] Other: # Voids 2 4 # Bowel Movements 2 - Exam General appearance: The patient is alert, oriented, appears in no acute distress. Obese. HET: Head is normocephalic and atraumatic. Conjunctiva pink. Sclera anicteric. Neck: Supple without lymphadenopathy. Abdomen: Soft, nontender, nondistended with bowel sounds. No guarding or rigidity. Extremities: Normal skin color and turgor. Bilateral lower extremity edema. Skin: No rashes, no jaundice Neurological: No focal deficits. Alert and oriented 3. - Labs CBC & Chem 7: 10/16/20 07:33 10/15/20 08:00 Labs: Abnormal Lab Results - Last 24 Hours (Table) 10/14/20 10/15/20 10/15/20 Range/Units 13:40 08:00 08:00 WBC (3.8-10.6) k/uL RBC (4.30-5.90) m/uL Hgb (13.0-17.5) gm/dL Hct (39.0-53.0) % MCHC (31.0-37.0) g/dL RDW (11.5-15.5) % Plt Count (150-450) k/uL Retic Count 3.7 H (0.5-2.0) % PT (9.0-12.0) sec INR (<1.2) Iron 43 L (65-175) ug/dL % Saturation 10.97 L (15.00-50.00) Crossmatch See Detail 10/15/20 10/15/20 10/16/20 Range/Units 14:02 20:15 07:33 WBC 1.6 L 2.2 L 1.5 L (3.8-10.6) k/uL RBC 2.08 L 2.40 L 2.34 L (4.30-5.90) m/uL Hgb 6.1 L* 7.3 L 7.3 L (13.0-17.5) gm/dL Hct 19.9 L* 23.0 L 22.0 L (39.0-53.0) % MCHC 30.7 L (31.0-37.0) g/dL RDW 18.4 H 18.2 H 17.6 H (11.5-15.5) % Plt Count 111 L 130 L 104 L (150-450) k/uL Retic Count (0.5-2.0) % PT (9.0-12.0) sec INR (<1.2) Iron (65-175) ug/dL % Saturation (15.00-50.00) Crossmatch 10/16/20 Range/Units 07:33 WBC (3.8-10.6) k/uL RBC (4.30-5.90) m/uL Hgb (13.0-17.5) gm/dL Hct (39.0-53.0) % MCHC (31.0-37.0) g/dL RDW (11.5-15.5) % Plt Count (150-450) k/uL Retic Count (0.5-2.0) % PT 13.7 H (9.0-12.0) sec INR 1.3 H (<1.2) Iron (65-175) ug/dL % Saturation (15.00-50.00) Crossmatch Assessment and Plan (1) Symptomatic anemia Narrative/Plan: 65-year-old male presented to the emergency department for low hemoglobin and weakness. Patient has a history of alcohol abuse, heart failure, hypertension, hypothyroidism and atrial fibrillation on Eliquis, last dose yesterday evening. He presented to the emergency department with a hemoglobin of 6.1 and was transfused 1 unit PRBC transfusion, repeat hemoglobin this morning was 5.6 and another unit of PRBC was ordered. He had a negative occult stool. His labs are significant for pancytopenia. He had previous workup with an EGD and colonoscopy on 08/15/2020 which showed antral gastritis and cecal and right colon polyp, no evidence bleeding or old blood noted. He denies any current iron use, he is supposed to get an iron infusion. He denies NSAID use. Is reporting dark stool but not black or bloody. No abdominal pain, nausea, or vomiting. We'll plan on small bowel video capsule endoscopy tomorrow morning, patient will be given magnesium citrate this evening and nothing by mouth after midnight. Current Visit: Yes Status: Acute Code(s): D64.9 - ANEMIA, UNSPECIFIED SNOMED Code(s): 716998447 (2) Pancytopenia Narrative/Plan: hematology consulted Current Visit: Yes Status: Acute Code(s): D61.818 - OTHER PANCYTOPENIA SNOMED Code(s): 854503234 (3) Atrial fibrillation Narrative/Plan: Currently on Eliquis, which is on hold. Last dose 10/14/20. Cardiology following. Current Visit: No Status: Acute Code(s): I48.91 - UNSPECIFIED ATRIAL FIBRILLATION SNOMED Code(s): 55418129 (4) Alcohol abuse Narrative/Plan: Patient admits to drinking beer from 12 noon until 6 PM daily, he has had significant alcohol use for greater than 50 years Current Visit: Yes Status: Acute Code(s): F10.10 - ALCOHOL ABUSE, UNCOMPLICATED SNOMED Code(s): 27223157 Plan: 1. Clear liquid diet, may advance to heart healthy diet at lunch 2. Continue to hold Eliquis 4. Anemia panel ordered on pre-transfusion blood 5. Hematology consulted, appreciate their recommendations 6. Patient is status post 4 units of PRBC transfusion 7. Repeat CBC daily, transfuse for hemoglobin less than 7 8. Protonix 40 mg twice a day 10. Avoid NSAIDs 11. Small bowel video capsule endoscopy in progress 12. Mature for withdrawal symptoms, LISA johnson Thank you for this consultation, we will continue to follow Dr. Murcia I agree with the dictator's note, documented as a scribe by Niki Davis.
--- NOTE | 2020-10-16 12:21 | P.CRDCN ---
History of Present Illness History of present illness: HISTORY OF PRESENTING ILLNESS This is a pleasant 65-year-old male past medical history significant for hypertension, chronic heavy alcohol use, anxiety, chronic nicotine dependence, anemia, paroxysmal atrial fibrillation on Eliquis, moderate to severe mitral regurgitation, chronic diastolic heart failure. He follows in the office with Dr. Daigle. We have been asked to see in consultation for the need for anticoagulation. Patient is seen and examined at bedside, no acute distress. Patient presents emergency with complaints of generalized weakness and low hemoglobin result his PCP office. He was found to have a hemoglobin of 5.6 as an outpatient office. Patient recently admitted and underwent EGD and colonoscopy in 08/15/[address] Corbett for anemia and tach score. He was f ound to have antral gastritis: Right colon polyp, no active bleeding noted. On admission here patient hemoglobin was 6.1, he received 1 unit PRBCs. Patient's hemoglobin continues to be well and has received a total of 4 units PRBCs. GI was consulted plan for patient to undergo small bowel video capsule endoscopy today. Patient states that he's been feeling weak and having low hemoglobin he was started on Eliquis. He states that he smokes cigarretes daily and has been drinking alcohol since he was 14 years old. He has increased anxiety over the past year and has been drinking more. Patient was initially seen on 03/2020 with complaints of rapid heart rate, palpitations and feeling like his heart was being distress. He was found to be in atrial fibrillation, he was placed on a Cardizem drip and converted to sinus rhythm. He was noted to be mildly bradycardic and therefore now wall was only increased to 40 mg. Additionally his lisinopril was decreased to 40 mg to 20 mg and his amlodipine was stopped. Echocardiogram on 04/22/2020 in the office revealed an ejection fraction of 55%, atrial fibrillation, severely dilated left atrium, moderate to severe mitral regurgitation, moderate to severe tricuspid regurgitation with RVSP of 64. He was back in atrial fibrillation, and a CARROLL on 06/10/2020 revealed moderate to severe mitral regurgitation moderate to severe tricuspid regurgitation. Cardioversion was unsuccessful with 2 attempts. DIAGNOSTICS EKG reveals atrial fibrillation, heart rate 84, nonspecific STT wave abnormalities.. Patient not on telemetry. Laboratory reviewed, WBC 1.5, hemoglobin 7.3, platelets 104, INR 1.3, sodium 132, potassium 4.0, serum creatinine 0.78, BUN 9 Current home daily medications include lisinopril 40 mg daily, Seroquel nightly, omeprazole, not a lot of 40 mg daily, Synthroid 100mcg daily, [place] when necessary, Lasix 40 mg daily. REVIEW OF SYSTEMS At the time of my exam: CONSTITUTIONAL: Denies fever or chills. +Generalized weakness CARDIOVASCULAR: Denies chest pain, shortness of breath, orthopnea, PND or palpitations. RESPIRATORY: Denies cough. GASTROINTESTINAL: Denies abdominal pain, diarrhea, constipation, nausea or vomiting. MUSCULOSKELETAL: Denies myalgias. NEUROLOGIC: Denies numbness, tingling, headacbe or weakness. ENDOCRINE: Denies fatigue, weight change, polydipsia or polyurina. GENITOURINARY: Denies burning, hematuria or urgency with micturation. HEMATOLOGIC: Denies history of anemia or bleeding. PHYSICAL EXAMINATION Blood pressure 113/80 heart rate 75 afebrile and maintaining oxygen saturation on room air CONSTITUTIONAL: No apparent distress. HEENT: Head is normocephalic. Pupils are equal, round. Sclerae anicteric. Mucous membranes of the mouth are moist. JVD 1cm CHEST EXAMINATION: Lungs are clear to auscultation. No chest wall tenderness is noted on palpation or with deep breathing. HEART EXAMINATION: Irregular rate and rhythm. S1, S2 heard. Systolic murmur noted at the apex ABDOMEN: Soft, nontender. Positive bowel sounds. EXTREMITIES: 2+ peripheral pulses, moderate bilateral lower extremity edema and no calf tenderness. NEUROLOGIC EXAMINATION: Patient is awake, alert and oriented x3. ASSESSMENT Anemia Edema bilateral lower extremities, some component of chronic venous insufficiency Hypertension Dyslipidemia Nonrheumatic mitral valve regurgitation Paroxysmal atrial fibrillation on Eliquis at home Chronic nicotine dependence Daily alcohol use PLAN We recommend discontinuing anticoagulation We discussed the risk of stroke with patient, however, due to the circumstances of patient's anemia we will discontinue his Eliquis Continue patient's metoprolol succinate while inpatient, as an outpatient ok to continue Nadolol Continue Lasix and Lisinopril Thank you kindly for this consultation Nurse Practitioner note has been reviewed, I agree with a documented findings and plan of care. Patient was seen and examined. Past Medical History Past Medical History: Atrial Fibrillation, Heart Failure, Hypertension, Osteoarthritis (OA), Thyroid Disorder Additional Past Medical History / Comment(s): having dk colored stools, anemia,received 1rst dose of Moderna vaccine,Had upper respitory infection May 2020 tx with antibiotics, had negative covid test, chronic pain low back, spinal stenosis, past Dimas's palsy. History of Any Multi-Drug Resistant Organisms: None Reported Past Surgical History: Hernia Repair Additional Past Surgical History / Comment(s): CARROLL,Abdominal hernia repair, R thigh fatty tumor removed, colonoscopies, epidural injections low back. Past Anesthesia/Blood Transfusion Reactions: No Reported Reaction Past Psychological History: Anxiety Smoking Status: Current every day smoker Past Alcohol Use History: Occasional Additional Past Alcohol Use History / Comment(s): states started smoking age 19, is trying to quit, now smokes about 5 cigarettes daily, states drinks 4-5 beers a day Past Drug Use History: None Reported - Past Family History Father Family Medical History: Hypertension Additional Family Medical History / Comment(s): heart valve replacements. Medications and Allergies Home Medications Medication Instructions Recorded Confirmed Type HYDROcodone/APAP 10-325MG [[place] 1 tab PO QID PRN 07/05/17 10/14/20 History 10-325] Potassium Chloride 10 meq PO BID 06/06/20 10/14/20 History QUEtiapine [SEROquel] 50 - 100 mg PO HS 06/06/20 10/14/20 History Furosemide [Lasix] 40 mg PO DAILY 08/12/20 10/14/20 History lisinopriL [Zestril] 40 mg PO DAILY 08/12/20 10/14/20 History Levothyroxine Sodium [Synthroid] 100 mcg PO DAILY 10/14/20 10/14/20 History Nadolol [Corgard] 40 mg PO DAILY 10/14/20 10/14/20 History Omeprazole 40 mg PO DAILY 10/14/20 10/14/20 History Allergies Allergy/AdvReac Type Severity Reaction Status Date / Time cholesterol meds AdvReac See Uncoded 10/14/20 14:48 comments Physical Exam Vitals: Vital Signs Temp Pulse Pulse Resp BP BP Pulse Ox 10/16/20 07:26 98.1 F 85 18 113/80 97 10/16/20 03:50 98.8 F 72 18 110/71 99 10/16/20 01:54 98.7 F 90 15 100/63 99 10/16/20 00:23 98.4 F 72 18 101/68 97 10/15/20 23:53 98.3 F 89 18 128/84 100 10/15/20 23:43 98.9 F 76 18 103/66 10/15/20 23:36 98.7 F 89 18 104/61 99 10/15/20 19:47 98.2 F 18 121/70 10/15/20 19:30 18 10/15/20 18:13 98.9 F 70 18 117/72 100 10/15/20 16:35 98.3 F 74 18 109/78 100 10/15/20 16:05 99.2 F 68 18 122/81 96 10/15/20 15:55 99.9 F H 74 18 102/54 98 10/15/20 14:00 98.6 F 68 18 114/79 100 10/15/20 12:34 98.4 F 75 18 100/64 100 10/15/20 10:37 98.0 F 77 18 110/73 100 10/15/20 10:07 98.3 F 76 18 120/76 95 10/15/20 09:57 97.6 F 76 18 106/72 99 Intake and Output 10/15/20 10/16/20 10/16/20 22:59 06:59 14:59 Intake Total 575 278 Balance 575 278 Intake: IV 300 Sodium Chloride 0.9% 1, 300 000 ml @ 120 mls/hr IV . Q8H20M [facility] Rx#:[id number] Blood Product 275 278 Rc Pheresis 2 As3 Unit 278 [id number] Rc Pheresis As-3 Unit 275 [id number] Other: # Voids 2 4 # Bowel Movements 2 Results 10/16/20 07:33 10/15/20 08:00 Cardiac Enzymes 10/15/20 Range/Units 08:00 AST 25 (17-59) U/L Coagulation 10/16/20 Range/Units 07:33 PT 13.7 H (9.0-12.0) sec CBC 10/15/20 10/15/20 10/15/20 Range/Units 08:00 14:02 20:15 WBC 1.6 L 1.6 L 2.2 L (3.8-10.6) k/uL RBC 1.83 L 2.08 L 2.40 L (4.30-5.90) m/uL Hgb 5.6 L* 6.1 L* 7.3 L (13.0-17.5) gm/dL Hct 17.3 L* 19.9 L* 23.0 L (39.0-53.0) % Plt Count 129 L 111 L 130 L (150-450) k/uL 10/16/20 Range/Units 07:33 WBC 1.5 L (3.8-10.6) k/uL RBC 2.34 L (4.30-5.90) m/uL Hgb 7.3 L (13.0-17.5) gm/dL Hct 22.0 L (39.0-53.0) % Plt Count 104 L (150-450) k/uL Comprehensive Metabolic Panel 10/15/20 Range/Units 08:00 Sodium 132 L (137-145) mmol/L Potassium 4.0 (3.5-5.1) mmol/L Chloride 99 (98-107) mmol/L Carbon Dioxide 28 (22-30) mmol/L BUN 9 (9-20) mg/dL Creatinine 0.78 (0.66-1.25) mg/dL Glucose 101 H (74-99) mg/dL Calcium 8.1 L (8.4-10.2) mg/dL AST 25 (17-59) U/L ALT 11 (4-49) U/L Alkaline Phosphatase 121 (38-126) U/L Total Protein 5.3 L (6.3-8.2) g/dL Albumin 3.3 L (3.5-5.0) g/dL Current Medications Generic Name Dose Route Start Last Admin Trade Name Freq PRN Reason Stop Dose Admin Acetaminophen 650 mg 10/14/20 14:34 Acetaminophen Tab 325 Mg Tab PO Q6HR PRN Mild Pain or Fever > 100.5 Hydrocodone Bitart/Acetaminophen 1 each 10/14/20 20:54 10/15/20 15:36 Hydrocodone/Apap 10-325mg 1 Each Tab PO 1 each QID PRN Administration Pain Furosemide 40 mg 10/15/20 09:00 10/15/20 08:06 Furosemide 40 Mg Tab PO 40 mg DAILY JERRY Administration Sodium Chloride 1,000 mls @ 120 mls/hr 10/14/20 14:45 10/16/20 07:10 Saline 0.9% IV Not Given .Q8H20M JERRY Levothyroxine Sodium 100 mcg 10/15/20 06:30 10/16/20 05:40 Levothyroxine 100 Mcg Tab PO Not Given DAILY@0630 JERRY Lisinopril 40 mg 10/15/20 09:00 10/16/20 07:10 Lisinopril 20 Mg Tab PO Not Given DAILY JERRY Lorazepam 1 mg 10/16/20 07:21 10/16/20 07:58 Lorazepam 2 Mg/Ml Inj IV 1 mg Q2HR PRN Administration CIWA 8 or 9 Lorazepam 1 mg 10/16/20 07:21 Lorazepam 2 Mg/Ml Inj IV Q1HR PRN CIWA 10 to 15 Lorazepam 2 mg 10/16/20 07:21 Lorazepam 2 Mg/Ml Inj IV 10/18/20 07:21 Q10M PRN CIWA 16 or higher Metoprolol Succinate 25 mg 10/14/20 21:00 10/15/20 08:06 Metoprolol Succinate (Er) 25 Mg Tab.Er.24h PO 25 mg DAILY JERRY Administration Naloxone HCl 0.2 mg 10/14/20 14:34 Naloxone 0.4 Mg/Ml 1 Ml Vial IV Q2M PRN Opioid Reversal Nicotine 1 patch 10/16/20 09:00 10/16/20 07:58 Nicotine 14mg/24hr Patch TRANSDERM 1 patch DAILY JERRY Administration Ondansetron HCl 4 mg 10/14/20 14:34 Ondansetron 4 Mg/2 Ml Vial IVP Q8HR PRN Nausea And Vomiting Pantoprazole Sodium 40 mg 10/15/20 07:30 10/16/20 07:10 Pantoprazole 40 Mg Tablet PO Not Given AC-BRKFST JERRY Quetiapine Fumarate 50 mg 10/14/20 21:00 10/15/20 21:28 Quetiapine 50 Mg Tab PO 50 mg HS JERRY Administration Thiamine HCl 100 mg 10/16/20 17:30 Thiamine 100 Mg Tab PO BID-W/MEALS JERRY Intake and Output 10/15/20 10/16/20 10/16/20 22:59 06:59 14:59 Intake Total 575 278 Balance 575 278 Intake: IV 300 Sodium Chloride 0.9% 1, 300 000 ml @ 120 mls/hr IV . Q8H20M [facility] Rx#:[id number] Blood Product 275 278 Rc Pheresis 2 As3 Unit 278 [id number] Rc Pheresis As-3 Unit 275 [id number] Other: # Voids 2 4 # Bowel Movements 2 10/16/20 07:33 10/15/20 08:00
--- NOTE | 2020-10-16 14:49 | P.PN ---
Subjective Progress Note Date: 10/16/20 Nomi Hernadez is a 65 yo M with PMH of A fib on eliquis, CHF, HTN who presented to the emergency department with complaints of weakness and low hemoglobin done at his PCP office. He was found to have a Hgb of 5.6 as an outpatient so came to the hospital. He was recently admitted and had a EGD and colonoscopy 08/15/[address] Corbett for anemia and dark stool, findings included antral gastritis and a cecal and right colon polyp. He has had some dark stools but denies dark tarry stools or bright red blood, no abdominal pain or vomiting. On admission he had a hemoglobin of 6.1 and was transfused 1 unit of PRBCs. The patient states he has had several endoscopies within the last few years, however denies any previous small bowel capsule endoscopy. FOBT negative on admission. Pt complains that he has had multiple admissions for anemia since starting the eliquis and iis asking about stopping this medication. 7021 status post 4 units total since admission with current hemoglobin 7.3, platelets 104. Hematology consult in place with recommendations pending. Reports he drinks daily from noon to 6 for over 50 years and does not plan to stop. Evaluated by GI and scheduled for small bowel capsule study. Denies any bloody bowel movements. Denies nausea vomiting. Positive loose orange bms. Denies abdominal pain. Patient inquiring about stopping Eliquis which he is on for A. fib. Discussed risks of stroke. Patient wishes to discuss further with cardiology. Denies chest pain, palpitations or shortness of breath. Objective - Vital Signs Vital signs: Vital Signs Temp 98.1 F 10/16/20 07:26 Pulse 85 10/16/20 07:26 Resp 18 10/16/20 07:26 BP 113/80 10/16/20 07:26 Pulse Ox 97 10/16/20 07:26 Intake & Output 10/15/20 10/16/20 10/16/20 18:59 06:59 18:59 Intake Total 863 278 Balance 863 278 Intake: IV 300 Sodium Chloride 0.9% 1, 300 000 ml @ 120 mls/hr IV . Q8H20M [facility] Rx#:[id number] Blood Product 563 278 Rc Pheresis 2 As3 Unit 278 [id number] Rc Pheresis 2 As3 Unit 288 [id number] Rc Pheresis As-3 Unit 275 [id number] Other: # Voids 2 4 # Bowel Movements 2 - Exam General: Sitting up in chair, NAD. Vitals reviewed Eyes: PERRL, EOMI, conjunctiva normal HENT: normocephalic, mucus membranes dry Neck: supple, no JVD Lungs: normal respiratory effort, no wheezes or rales CV: Regular rate and rhythm, no murmur. Peripheral pulses 2+ Abdomen: soft, nondistended, no organomegaly, positive bowel sounds Skin: warm and dry. Neuro: A&Ox3, normal mood and affect - Labs CBC & Chem 7: 10/16/20 07:33 10/15/20 08:00 Labs: Abnormal Lab Results - Last 24 Hours (Table) 10/14/20 10/15/20 10/15/20 Range/Units 13:40 08:00 08:00 WBC (3.8-10.6) k/uL RBC (4.30-5.90) m/uL Hgb (13.0-17.5) gm/dL Hct (39.0-53.0) % MCHC (31.0-37.0) g/dL RDW (11.5-15.5) % Plt Count (150-450) k/uL Retic Count 3.7 H (0.5-2.0) % PT (9.0-12.0) sec INR (<1.2) Iron 43 L (65-175) ug/dL % Saturation 10.97 L (15.00-50.00) Crossmatch See Detail 10/15/20 10/15/20 10/16/20 Range/Units 14:02 20:15 07:33 WBC 1.6 L 2.2 L 1.5 L (3.8-10.6) k/uL RBC 2.08 L 2.40 L 2.34 L (4.30-5.90) m/uL Hgb 6.1 L* 7.3 L 7.3 L (13.0-17.5) gm/dL Hct 19.9 L* 23.0 L 22.0 L (39.0-53.0) % MCHC 30.7 L (31.0-37.0) g/dL RDW 18.4 H 18.2 H 17.6 H (11.5-15.5) % Plt Count 111 L 130 L 104 L (150-450) k/uL Retic Count (0.5-2.0) % PT (9.0-12.0) sec INR (<1.2) Iron (65-175) ug/dL % Saturation (15.00-50.00) Crossmatch 10/16/20 Range/Units 07:33 WBC (3.8-10.6) k/uL RBC (4.30-5.90) m/uL Hgb (13.0-17.5) gm/dL Hct (39.0-53.0) % MCHC (31.0-37.0) g/dL RDW (11.5-15.5) % Plt Count (150-450) k/uL Retic Count (0.5-2.0) % PT 13.7 H (9.0-12.0) sec INR 1.3 H (<1.2) Iron (65-175) ug/dL % Saturation (15.00-50.00) Crossmatch Assessment and Plan Assessment: Iron deficiency anemia, secondary to GI bleed, etiology unclear. Status post transfusion of 4 units of packed RBCs to date. Alcohol abuse, monitor for DTs Pancytopenia Chronic diastolic CHF Chronic atrial fibrillation on Eliquis with multiple GI bleeds in the last few months Plan: Continue on current medication regime ,monitoring and symptomatic treatment. Small bowel video capsule endoscopy recently initiated. Maintain CIWA protocol. Eliquis on hold .Cardiology consult in place, outpatient anticoagulation recommendations pending. Hematology consult in place with recommendations pending The impression and plan of care has been dictated as directed. : I performed a history and examination of this patient, discussed the same with the dictator. I agree with the dictator's note ,documented as a scribe. Any additional findings or plans will be noted.
[2020-10-16 17:25] LABS: Anisocytosis Slight; HCT 22.3 % (39.0-53.0); HGB 7.4 gm/dL (13.0-17.5); Hypochromasia Moderate; MCH 31.3 pg (25.0-35.0); MCHC 33.1 g/dL (31.0-37.0); MCV 94.4 fL (80.0-100.0); Mean Platelet Volume 8.1; Platelet Count 102 k/uL (150-450); Poikilocytosis Moderate; RBC 2.37 m/uL (4.30-5.90); RDW 17.6 % (11.5-15.5); WBC 1.7 k/uL (3.8-10.6)
[2020-10-16] MEDS: THIAMINE 100 MG TAB PO SCH (17:47)
[2020-10-16] MEDS: QUEtiapine 50 MG TAB PO SCH (22:00)
--- NOTE | 2020-10-17 00:42 | P.CONS ---
History of Present Illness - Reason for Consult Consult date: 10/16/20 anemia, anticoagulation, leukopenia - History of Present Illness the patient is a 65-year-old white male with multiple medical problems. The patient was diagnosed with atrial fibrillation in early 2020, and was placed on anticoagulation with eliquis. States that since then he has had recurrent drops in hemoglobin requiring intermittent blood transfusions. He had EGD and colonoscopy in 08/29, that was negative other than a small benign polyp and some mild gastritis. He was supposed to get IV iron as an outpatient ordered by his PCP, but was sent in because CBC in the PCPs office revealed hemoglobin in the 6 range. On presentation hemoglobin was 6.1. After transfusion it has improved into the low 7 range. Consult was therefore placed for further evaluation and recommendations. Patient denied prior history of anemia, before early 2020. His labs also showed leukopenia with WBC 1.7. However neutrophils were adequate at 1300. Review of multiple labs going back to 2018 in the EMR shows chronic mild alberto kopenia with the previously seen in the to-3000 range. Patient also has some mild anemia in the 11-12 range 2018 but hemoglobin in late 03/30 was 13+. 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 There was no evidence of PFO or left atrial appendage clot. There was significant right atrial enlargement. Review of Systems Constitutional: Reports fatigue, Reports weakness Eyes: denies blurred vision, denies pain Ears: deny: decreased hearing, ear discharge, earache, tinnitus Ears, nose, mouth and throat: Denies headache, Denies sore throat Cardiovascular: Reports dyspnea on exertion Respiratory: Denies cough Gastrointestinal: Reports melena (questionable), Denies abdominal pain, Denies diarrhea, Denies nausea, Denies vomiting Genitourinary: Reports as per HPI Musculoskeletal: Reports muscle weakness Integumentary: Denies pruritus, Denies rash Neurological: Reports weakness Psychiatric: Denies anxiety, Denies depression Endocrine: Reports fatigue Hematologic/Lymphatic: Reports as per HPI Past Medical History Past Medical History: Atrial Fibrillation, Heart Failure, Hypertension, Osteoarthritis (OA), Thyroid Disorder Additional Past Medical History / Comment(s): having dk colored stools, anemia,received 1rst dose of Moderna vaccine,Had upper respitory infection May 2020 tx with antibiotics, had negative covid test, chronic pain low back, spinal stenosis, past Dimas's palsy. History of Any Multi-Drug Resistant Organisms: None Reported Past Surgical History: Hernia Repair Additional Past Surgical History / Comment(s): CARROLL,Abdominal hernia repair, R thigh fatty tumor removed, colonoscopies, epidural injections low back. Past Anesthesia/Blood Transfusion Reactions: No Reported Reaction Past Psychological History: Anxiety Smoking Status: Current every day smoker Past Alcohol Use History: Occasional Additional Past Alcohol Use History / Comment(s): states started smoking age 19, is trying to quit, now smokes about 5 cigarettes daily, states drinks 4-5 beers a day Past Drug Use History: None Reported - Past Family History Father Family Medical History: Hypertension Additional Family Medical History / Comment(s): heart valve replacements. Medications and Allergies Home Medications Medication Instructions Recorded Confirmed Type HYDROcodone/APAP 10-325MG [[place] 1 tab PO QID PRN 07/05/17 10/14/20 History 10-325] Potassium Chloride 10 meq PO BID 06/06/20 10/14/20 History QUEtiapine [SEROquel] 50 - 100 mg PO HS 06/06/20 10/14/20 History Furosemide [Lasix] 40 mg PO DAILY 08/12/20 10/14/20 History lisinopriL [Zestril] 40 mg PO DAILY 08/12/20 10/14/20 History Levothyroxine Sodium [Synthroid] 100 mcg PO DAILY 10/14/20 10/14/20 History Nadolol [Corgard] 40 mg PO DAILY 10/14/20 10/14/20 History Omeprazole 40 mg PO DAILY 10/14/20 10/14/20 History Allergies Allergy/AdvReac Type Severity Reaction Status Date / Time cholesterol meds AdvReac See Uncoded 10/14/20 14:48 comments Physical Exam Vitals: Vital Signs Temp Pulse Pulse Resp BP BP Pulse Ox 10/16/20 14:00 98.1 F 77 16 128/76 100 10/16/20 12:15 98.1 F 93 14 119/80 90 L 10/16/20 07:26 98.1 F 85 18 113/80 97 10/16/20 03:50 98.8 F 72 18 110/71 99 10/16/20 01:54 98.7 F 90 15 100/63 99 10/16/20 00:23 98.4 F 72 18 101/68 97 10/15/20 23:53 98.3 F 89 18 128/84 100 10/15/20 23:43 98.9 F 76 18 103/66 10/15/20 23:36 98.7 F 89 18 104/61 99 10/15/20 19:47 98.2 F 18 121/70 10/15/20 19:30 18 Intake and Output 10/16/20 10/16/20 10/16/20 06:59 14:59 22:59 Intake Total 278 Balance 278 Intake: Blood Product 278 Rc Pheresis 2 As3 Unit 278 [id number] Other: Voiding Method Toilet # Voids 4 8 - Constitutional General appearance: no acute distress - EENT Eyes: EOMI, PERRLA ENT: hearing grossly normal, normal oropharynx - Neck Neck: no lymphadenopathy Thyroid: bilateral: normal size - Respiratory Respiratory: bilateral: CTA - Cardiovascular Rhythm: irregularly irregular Heart sounds: normal: S1, S2 - Gastrointestinal General gastrointestinal: normal bowel sounds, soft - Integumentary Integumentary: normal - Neurologic Neurologic: CNII-XII intact - Musculoskeletal Musculoskeletal: strength equal bilaterally - Psychiatric Psychiatric: A&O x's 3, appropriate affect, intact judgment & insight Results CBC & Chem 7: 10/16/20 16:58 10/15/20 08:00 Labs: Abnormal Lab Results - Last 24 Hours (Table) 10/14/20 10/15/20 10/16/20 Range/Units 13:40 20:15 07:33 WBC 2.2 L 1.5 L (3.8-10.6) k/uL RBC 2.40 L 2.34 L (4.30-5.90) m/uL Hgb 7.3 L 7.3 L (13.0-17.5) gm/dL Hct 23.0 L 22.0 L (39.0-53.0) % RDW 18.2 H 17.6 H (11.5-15.5) % Plt Count 130 L 104 L (150-450) k/uL PT (9.0-12.0) sec INR (<1.2) Crossmatch See Detail 10/16/20 10/16/20 Range/Units 07:33 16:58 WBC 1.7 L (3.8-10.6) k/uL RBC 2.37 L (4.30-5.90) m/uL Hgb 7.4 L (13.0-17.5) gm/dL Hct 22.3 L (39.0-53.0) % RDW 17.6 H (11.5-15.5) % Plt Count 102 L (150-450) k/uL PT 13.7 H (9.0-12.0) sec INR 1.3 H (<1.2) Crossmatch Comments: CARROLL report reviewed EGD/colonoscopy/path reports reviewed Chest x-ray: report reviewed CT scan - abdomen: report reviewed (from 2017) CT scan - pelvis: report reviewed (from 2017) Assessment and Plan (1) Anemia due to blood loss Narrative/Plan: History as described. The patient previously had mild anemia in 2018, but hemoglobin was normal in 03/30. Drop in hemoglobin is happened since starting anticoagulation. Recent GI workup was negative. 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 - The patient is currently undergoing small bowel capsule endoscopy. He was advised that the clinical diagnosis will remain the same whether the study is positive or not. The mainstay of treatment in this situation is aggressive iron supplementation, and stoppage of anticoagulation if possible - Case was discussed in detail with cardiology. They indicated that it would be preferable to continue the patient on anticoagulation if possible. This would have to be balanced against the risk of recurrent severe anemia. I discussed that it may be possible to maintain the patient's hemoglobin in a safe range with aggressive antibiotic monitoring and IV iron supplementation, continuing anticoagulation. Cardiology confirmed that this would need to be preferable if possible. - Start patient on IV iron. - Set up plan for additional IV iron as an outpatient, as well as scheduled for close monitoring and additional IV and administration - Given the patient's very low hemoglobin at this point, it was felt appropriate, considering risk versus benefit, that and declaration will be held for a few weeks till hemoglobin is in a safe range after which he can be given a trial of resumption Current Visit: Yes Status: Acute Code(s): D50.0 - IRON DEFICIENCY ANEMIA SECONDARY TO BLOOD LOSS (CHRONIC) SNOMED Code(s): 040796462 (2) Pancytopenia Narrative/Plan: actually has been chronic,with acute exacerbation of anemia due to blood loss. Workup so far confirms and deficiency. B12 and folate are normal. CT of the abdomen and pelvis in 2018 revealed evidence of hepatosplenomegaly. Patient also gives a history of possible autoimmune disease. - Repeat CT of the abdomen and pelvis. I'll also order additional workup for pancytopenia including autoimmune markers. - WBC though significantly low still in a safe range as ANC is greater than 1000. Platelets are also within a safe range. Current Visit: Yes Status: Acute Code(s): D61.818 - OTHER PANCYTOPENIA SNOMED Code(s): 431942170 Plan: therefore to the admitting service and other consultants for management of his other medical problems
[2020-10-17] MEDS: SODIUM CHLORIDE 0.9% 1,000 ML IV SCH ×3 (02:36→20:31)
[2020-10-17] MEDS: LEVOTHYROXINE 100 MCG TAB PO SCH (06:13)
[2020-10-17] MEDS: IOPAMIDOL CONTRAST (ORAL USE) VIAL PO PRN ×2 (07:35→08:38)
[2020-10-17 09:28] LABS: Anisocytosis Slight; Basophils % (A) 1 %; Eosinophils % (A) 2 %; HCT 20.8 % (39.0-53.0); Hypochromasia Moderate; Lymphocytes # (A) 0.5 k/uL (1.0-4.8); Lymphocytes % (A) 40 %; MCHC 31.6 g/dL (31.0-37.0); MCV 95.2 fL (80.0-100.0); Macrocytosis Slight; Mean Platelet Volume 8.3; Monocytes # (A) 0.1 k/uL (0-1.0); Monocytes % (A) 9 %; Neutrophils # (A) 0.6 k/uL (1.3-7.7); Neutrophils % (A) 45 %; Platelet Count 99 k/uL (150-450); Poikilocytosis Slight; RBC 2.18 m/uL (4.30-5.90); RDW 17.6 % (11.5-15.5)
[2020-10-17 09:43] LABS: WBC 1.3 k/uL (3.8-10.6)
[2020-10-17 09:44] LABS: HGB 6.6 gm/dL (13.0-17.5)
[2020-10-17 10:33] LABS: African American GFR (CKD) >90 (>60 ml/min/1.73 sqM); Anion Gap 6 mmol/L; Blood Urea Nitrogen 7 mg/dL (9-20); Calcium 8.1 mg/dL (8.4-10.2); Carbon Dioxide 27 mmol/L (22-30); Chloride 101 mmol/L (98-107); Glucose 108 mg/dL (74-99); Non-African American GFR(CKD) >90 (>60 ml/min/1.73 sqM); Potassium 3.4 mmol/L (3.5-5.1); Sodium 134 mmol/L (137-145)
--- NOTE | 2020-10-17 10:33 | CT ---
EXAMINATION TYPE: CT abdomen pelvis w con DATE OF EXAM: 10/17/2020 COMPARISON: 12/05/2017 HISTORY: 65-year-old male Hepatosplenomegaly follow up, Anemia TECHNIQUE: Contiguous axial scanning of the abdomen and pelvis following administration of 100 ml Iso tessa 300 IV contrast. Delayed images through the kidneys and coronal/sagittal reconstructions perform ed. CT DLP: 2036.4 mGycm Automated exposure control for dose reduction was used. FINDINGS: Heart borderline enlarged without pericardial effusion. There are trace pleural effusions. Calcified granuloma at the right base. Liver enlarged at 22.5 cm versus 24.2 cm, previously. There may be subtle contour nodularity of the l iver. Calcified granuloma right hepatic dome and slight heterogeneous enhancement but no focal lesion . Portal venous system is patent. No biliary ductal dilatation. Spleen enlarged at 22.6 cm versus 21.3 cm, previously. A few dependent gallstones are present. There is mild gallbladder wall thickening which is nonspecifi c but no abnormal gallbladder distention. Mild perisplenic and perihepatic ascites tracking down the pericolic gutters. No free air. Gastrohepatic ligament lymph nodes measure up to 1.2 cm. Yassine hepatic lymph nodes measure up to 1.5 cm. Portacaval lymph node measures up to 1.4 cm. Adrenal glands and pancreas show no gross abnormality. Apparent round soft tissue masses within the bilateral renal sinus regions measuring up to 2.5 cm on the right and 3.2 cm on the left. 1.6 cm cortical cyst anterior left kidney slightly larger from 1.1 cm, previously. There is delayed excretion of contrast from the kidney suggesting some degree of acut e kidney injury. Variant direct takeoff of the splenic artery directly from the aortic arch. Mild metastatic calcifica tions infrarenal abdominal aorta without aneurysm. No dilated small bowel or free air. Normal appendix. Oral contrast progressed into the ascending colon. Mild stool burden. Redundant sigm oid colon. Mild to moderate circumferential bladder wall thickening. Prostate gland measures 4.3 cm wide. Patulo us bilateral inguinal canals. Left-sided pelvic phleboliths. Moderate presacral edema. 1.9 cm right paramedian presacral soft tissue nodule at the S1 level, axial images 73 and sagittal im age 73. Bones: Mild degenerative change of the hips. Advanced degenerative disc disease L5-S1 with facet arth ropathy mid to lower lumbar spine. Fatty matrix hemangioma L2 vertebral body and superior endplate Sc hmorl's node T12 vertebral body. IMPRESSION: 1. Hepatomegaly at 22.5 cm versus 24.2 cm in 2018. Very subtle contour nodularity. Correlate for poss ible underlying cirrhosis. 2. Splenomegaly at 22.6 cm versus 21.3 cm, previously. 3. New anasarca with mild abdominal ascites and trace pleural effusions. Correlate for third spacing or fluid overload state. 4. Upper abdominal lymphadenopathy (gastrohepatic and portacaval measuring up to 1.5 cm). Additionall y, there are apparent rounded masses in the bilateral renal sinus regions measuring up to 2.5 cm. The re is also a soft tissue nodule in the right paramedian S1 presacral region. Some type of occult neop lastic etiology or lymphoproliferative disorder are considerations. Further workup recommended. 5. Cholelithiasis. Circumferential bladder wall thickening could reflect chronic bladder hypertrophy or cystitis.
[2020-10-17] MEDS ORDERED: Potassium Replacement Protocol 1 EACH MISC MISCELLANE PRN ×2 (10:51)
--- NOTE | 2020-10-17 10:51 | P.DS ---
Providers Date of admission: 10/14/20 14:34 Expected date of discharge: 10/17/20 Attending physician: Cosmo Light MD Consults: 10/14/20 14:35 Consult Physician Routine Consulting Provider: Norman Murcia Consult Reason/Comments: gi bleed? Do you want consulting provider notified?: Yes 10/15/20 09:26 Consult Physician Routine Consulting Provider: Adrien Minor Consult Reason/Comments: Eliquis need? GI bleed? Do you want consulting provider notified?: Yes 10/15/20 14:07 Consult Physician Routine Consulting Provider: Shayan Corona Consult Reason/Comments: pancytopenia Do you want consulting provider notified?: Yes Primary care physician: Lucia Nadege [place] Hospital Course: Final Diagnoses: Iron deficiency anemia, secondary to GI bleed, etiology unclear. Status post transfusion of 4 units of packed RBCs to date. Blood loss anemia suspected to be related to small bowel arteriovenous malformations with blood loss exacerbated by anticoagulation as per hematology. Eliquis discontinued. Status post IV iron with IV iron outpatient to be arranged in clinic as per PCP. Small bowel Capsule study results pending. Pancytopenia Alcohol abuse, monitor for DTs Chronic diastolic CHF Chronic atrial fibrillation on Eliquis with multiple GI bleeds in the last few months. Eliquis discontinued as per cardiology. Hospital course:Nomi Hernadez is a 65 yo M with PMH of A fib on eliquis, CHF, HTN who presented to the emergency department with complaints of weakness and low hemoglobin done at his PCP office. He was found to have a Hgb of 5.6 as an outpatient so came to the hospital. He was recently admitted and had a EGD and colonoscopy 08/15/[address] Corbett for anemia and dark stool, findings included antral gastritis and a cecal and right colon polyp. He has had some dark stools but denies dark tarry stools or bright red blood, no abdominal pain or vomiting. On admission he had a hemoglobin of 6.1 and was transfused 1 unit of PRBCs. The patient states he has had several endoscopies within the last few years, however denies any previous small bowel capsule endoscopy. FOBT negative on admission. Pt complains that he has had multiple admissions for anemia since starting the eliquis and iis asking about stopping this medication. 7021 status post 4 units total since admission with current hemoglobin 7.3, platelets 104. Hematology consult in place with recommendations pending. Reports he drinks daily from noon to 6 for over 50 years and does not plan to stop. Evaluated by GI and scheduled for small bowel capsule study. Denies any bloody bowel movements. Denies nausea vomiting. Positive loose orange bms. Denies abdominal pain. Patient inquiring about stopping Eliquis which he is on for A. fib. Discussed risks of stroke. Patient wishes to discuss further with cardiology. Denies chest pain, palpitations or shortness of breath. Evaluated by hematology, suspected small bowel arteriovenous malformations with blood loss exacerbated by anticoagulation secondary to drop in hemoglobin occurred after starting anticoagulation. Aggressive iron supplementation and discontinuation of anticoagulation recommended. Eliquis discontinued as per cardiology; patient understands risks regarding stroke and requests to be off of Eliquis. Outpatient IV iron therapy to be arranged in clinic with PCP. Small bowel capsule endoscopy completed, results pending. Patient will be discharged home later today in a stable condition with guarded prognosis, pending capsule study results, final DC recommendations and clearance from GI. The impression and plan of care has been dictated as directed. : I performed a history and examination of this patient, discussed the same with the dictator. I agree with the dictator's note ,documented as a scribe. Any additional findings or plans will be noted. Patient Condition at Discharge: Stable Plan - Discharge Summary Discharge Rx Participant: No New Discharge Prescriptions: New Folic Acid 1 mg PO DAILY #1 tablet Thiamine [Vitamin B-1] 100 mg PO DAILY tab Nicotine 14Mg/24Hr Patch [Habitrol] 1 patch TRANSDERM DAILY #1 patch Metoprolol Succinate (ER) [Toprol XL] 25 mg PO DAILY #30 tab.er.24h Continue HYDROcodone/APAP 10-325MG [[place] 10-325] 1 tab PO QID PRN PRN Reason: Pain Potassium Chloride 10 meq PO BID Furosemide [Lasix] 40 mg PO DAILY lisinopriL [Zestril] 40 mg PO DAILY Levothyroxine Sodium [Synthroid] 100 mcg PO DAILY Omeprazole 40 mg PO DAILY Changed QUEtiapine [SEROquel] 50 mg PO HS #0 Discontinued Apixaban [Eliquis] 5 mg PO BID #180 tab Discharge Medication List HYDROcodone/APAP 10-325MG [[place] 10-325] 1 tab PO QID PRN 07/05/17 [History] Potassium Chloride 10 meq PO BID 06/06/20 [History] Furosemide [Lasix] 40 mg PO DAILY 08/12/20 [History] lisinopriL [Zestril] 40 mg PO DAILY 08/12/20 [History] Levothyroxine Sodium [Synthroid] 100 mcg PO DAILY 10/14/20 [History] Omeprazole 40 mg PO DAILY 10/14/20 [History] Folic Acid 1 mg PO DAILY #1 tablet 10/17/20 [Rx] Metoprolol Succinate (ER) [Toprol XL] 25 mg PO DAILY #30 tab.er.24h 10/17/20 [Rx] Nicotine 14Mg/24Hr Patch [Habitrol] 1 patch TRANSDERM DAILY #1 patch 10/17/20 [Rx] QUEtiapine [SEROquel] 50 mg PO HS #0 10/17/20 [Rx] Thiamine [Vitamin B-1] 100 mg PO DAILY tab 10/17/20 [Rx] Follow up Appointment(s)/Referral(s): Shayan Corona MD [STAFF PHYSICIAN] - Lucia Light DO [Primary Care Provider] - 3 Days Catherine Power MD [STAFF PHYSICIAN] - 2 Weeks Ambulatory/Diagnostic Orders: Complete Blood Count w/diff [LAB.AMB] Time Frame: 3 Days, Location: None Selected Activity/Diet/Wound Care/Special Instructions: Outpatient IV iron to be arranged in clinic by PCP, as recommended per hematology.
[2020-10-17] MEDS ORDERED: Magnesium Replacement Protocol 1 EACH MISC MISCELLANE PRN ×2 (10:52→11:53)
[2020-10-17] MEDS: PANTOPRAZOLE 40 MG TABLET PO SCH (11:00)
[2020-10-17] MEDS: lisinopriL 20 MG TAB PO SCH (11:01)
[2020-10-17] MEDS: THIAMINE 100 MG TAB PO SCH ×2 (11:04→17:36)
[2020-10-17] MEDS: METOPROLOL SUCCINATE (ER) 25 MG TAB.ER.24H PO SCH (11:05)
[2020-10-17] MEDS: FUROSEMIDE 40 MG TAB PO SCH (11:06)
[2020-10-17] MEDS: POTASSIUM CHLORIDE ER 20 MEQ TAB.ER PO SCH ×2 (11:08→12:42)
[2020-10-17] MEDS: NICOTINE 14MG/24HR PATCH TRANSDERM SCH (11:10)
[2020-10-17] MEDS: HYDROcodone/APAP 10-325MG 1 EACH TAB PO PRN ×2 (11:16→20:27)
[2020-10-17] MEDS: MAGNESIUM SULFATE-D5W PMX 1 GM in DEXTROSE/WATER 1 100ML.BAG IVPB SCH ×3 (12:02→14:40)
--- NOTE | 2020-10-17 13:09 | P.PN ---
Subjective This is a pleasant 65-year-old male past medical history significant for hypertension, chronic heavy alcohol use, anxiety, chronic nicotine dependence, anemia, paroxysmal atrial fibrillation on Eliquis, moderate to severe mitral regurgitation, chronic diastolic heart failure. He follows in the office with Dr. Daigle. We have been asked to see in consultation for the need for anticoagulation. Patient is seen and examined at bedside, no acute distress. Patient presents emergency with complaints of generalized weakness and low hemoglobin result his PCP office. He was found to have a hemoglobin of 5.6 as an outpatient office. Patient recently admitted and underwent EGD and colonoscopy in 08/15/[address] Corbett for anemia and tach score. He was found to have antral gastritis: Right colon polyp, no active bleeding noted. On admission here patient hemoglobin was 6.1, he received 1 unit PRBCs. Patient's hemoglobin continues to be well and has received a total of 4 units PRBCs. GI was consulted plan for patient to undergo small bowel video capsule endoscopy today. Patient states that he's been feeling weak and having low hemoglobin he was started on Eliquis. He states that he smokes cigarretes daily and has been drinking alcohol since he was 14 years old. He has increased anxiety over the past year and has been drinking more. Patient was initially seen on 03/2020 with complaints of rapid heart rate, palpitations and feeling like his heart was being distress. He was found to be in atrial fibrillation, he was placed on a Cardizem drip and converted to sinus rhythm. He was noted to be mildly bradycardic and therefore now wall was only increased to 40 mg. Additionally his lisinopril was decreased to 40 mg to 20 mg and his amlodipine was stopped. Echocardiogram on 04/22/2020 in the office revealed an ejection fraction of 55%, atrial fibrillation, severely dilated left atrium, moderate to severe mitral regurgitation, moderate to severe tricuspid regurgitation with RVSP of 64. He was back in atrial fibrillation, and a CARROLL on 06/10/2020 revealed moderate to severe mitral regurgitation moderate to severe tricuspid regurgitation. Cardioversion was unsuccessful with 2 attempts. 10/17/2020: Patient seen and examined at bedside. No acute distress. Vital signs are stable. Heart rates are controlled. No complaints at this time he is currently being maintained on Lasix 20 mg daily, lisinopril 40 mg daily, metoprolol succinate 25 mg daily. PHYSICAL EXAMINATION CONSTITUTIONAL: No apparent distress. HEENT: Head is normocephalic. Pupils are equal, round. Sclerae anicteric. Mucous membranes of the mouth are moist. CHEST EXAMINATION: Lungs are clear to auscultation. No chest wall tenderness is noted on palpation or with deep breathing. HEART EXAMINATION: Irregular rate and rhythm. S1, S2 heard. Systolic murmur noted at the apex ABDOMEN: Soft, nontender. Positive bowel sounds. EXTREMITIES: 2+ peripheral pulses, moderate bilateral lower extremity edema and no calf tenderness. NEUROLOGIC EXAMINATION: Patient is awake, alert and oriented x3. ASSESSMENT Anemia Edema bilateral lower extremities, some component of chronic venous insufficiency Hypertension Dyslipidemia Nonrheumatic mitral valve regurgitation Paroxysmal atrial fibrillation on Eliquis at home Chronic nicotine dependence Daily alcohol use PLAN We would prefer to continue anticoagulation if possible, this would have to be balanced against the risk of recurrent severe anemia. If it is possible to maintain the patient's hemoglobin is safe range we may be able to continue anticoagulation the future. We discussed the risk of stroke with patient, however, due to the circumstances of patient's anemia we will discontinue his Eliquis. Continue patient's metoprolol succinate while inpatient, as an outpatient ok to continue Nadolol Hematology following patient Continue Lasix and Lisinopril From a cardiology perspective, patient stable. No further cardiac testing at this time. We will follow the patient as needed. Please reach out with any further questions or concerns. Patient follow-up in the office with Dr. Daigle. Nurse Practitioner note has been reviewed, I agree with a documented findings and plan of care. Patient was seen and examined. Objective - Vital Signs Vital signs: Vital Signs Temp 98.0 F 10/17/20 12:52 Pulse 85 10/17/20 12:52 Resp 18 10/17/20 12:52 BP 118/77 10/17/20 12:52 Pulse Ox 100 10/17/20 11:56 Intake & Output 10/16/20 10/17/20 10/17/20 18:59 06:59 18:59 Intake Total 0 Balance 0 Intake: Blood Product 0 Rc As-1 Unit 0 [id number] Other: Voiding Method Toilet Toilet # Voids 8 - Labs CBC & Chem 7: 10/17/20 07:03 10/17/20 07:03 Labs: Abnormal Lab Results - Last 24 Hours (Table) 10/14/20 10/16/20 10/17/20 Range/Units 13:40 16:58 07:03 WBC 1.7 L (3.8-10.6) k/uL RBC 2.37 L (4.30-5.90) m/uL Hgb 7.4 L (13.0-17.5) gm/dL Hct 22.3 L (39.0-53.0) % RDW 17.6 H (11.5-15.5) % Plt Count 102 L (150-450) k/uL Sodium 134 L (137-145) mmol/L Potassium 3.4 L (3.5-5.1) mmol/L BUN 7 L (9-20) mg/dL Glucose 108 H (74-99) mg/dL Calcium 8.1 L (8.4-10.2) mg/dL Magnesium (1.6-2.3) mg/dL Crossmatch See Detail 10/17/20 10/17/20 Range/Units 07:03 07:03 WBC (3.8-10.6) k/uL RBC 2.18 L (4.30-5.90) m/uL Hgb (13.0-17.5) gm/dL Hct 20.8 L (39.0-53.0) % RDW 17.6 H (11.5-15.5) % Plt Count 99 L (150-450) k/uL Sodium (137-145) mmol/L Potassium (3.5-5.1) mmol/L BUN (9-20) mg/dL Glucose (74-99) mg/dL Calcium (8.4-10.2) mg/dL Magnesium 0.8 L* (1.6-2.3) mg/dL Crossmatch
--- NOTE | 2020-10-17 15:31 | P.PN ---
Subjective Progress Note Date: 10/17/20 Principal diagnosis: Symptomatic anemia She was seen and examined sitting up in a chair this morning. He states he just had a bowel movement which he states was probably with maroon color mixed in. Denies any abdominal pain, nausea, or vomiting. Nursing reported she received a call that his hemoglobin was 6.6, 1 unit PRBC transfusion infusing. He states overall he feels well Objective - Vital Signs Vital signs: Vital Signs Temp 98.0 F 10/17/20 06:56 Pulse 80 10/17/20 06:56 Resp 15 10/17/20 06:56 BP 137/78 10/17/20 06:56 Pulse Ox 99 10/17/20 01:48 Intake & Output 10/16/20 10/17/20 10/17/20 18:59 06:59 18:59 Other: Voiding Method Toilet # Voids 8 - Exam General appearance: The patient is alert, oriented, appears in no acute distress. Obese. HET: Head is normocephalic and atraumatic. Conjunctiva pink. Sclera anicteric. Neck: Supple without lymphadenopathy. Abdomen: Soft, obese, nontender, nondistended with bowel sounds. No guarding or rigidity. Extremities: Normal skin color and turgor. Bilateral lower extremity edema. Skin: No rashes, no jaundice Neurological: No focal deficits. Alert and oriented 3. - Labs CBC & Chem 7: 10/17/20 07:03 10/17/20 07:03 Labs: Abnormal Lab Results - Last 24 Hours (Table) 10/14/20 10/16/20 10/17/20 Range/Units 13:40 16:58 07:03 WBC 1.7 L (3.8-10.6) k/uL RBC 2.37 L 2.18 L (4.30-5.90) m/uL Hgb 7.4 L (13.0-17.5) gm/dL Hct 22.3 L 20.8 L (39.0-53.0) % RDW 17.6 H 17.6 H (11.5-15.5) % Plt Count 102 L 99 L (150-450) k/uL Crossmatch See Detail Assessment and Plan (1) Symptomatic anemia Narrative/Plan: 65-year-old male presented to the emergency department for low hemoglobin and weakness. Patient has a history of alcohol abuse, heart failure, hypertension, hypothyroidism and atrial fibrillation on Eliquis, last dose yesterday evening. He presented to the emergency department with a hemoglobin of 6.1 and was transfused 1 unit PRBC transfusion, repeat hemoglobin this morning was 5.6 and another unit of PRBC was ordered. He had a negative occult stool. His labs are significant for pancytopenia. He had previous workup with an EGD and colonoscopy on 08/15/2020 which showed antral gastritis and cecal and right colon polyp, no evidence bleeding or old blood noted. He denies any current iron use, he is supposed to get an iron infusion. He denies NSAID use. Is reporting dark stool but not black or bloody. No abdominal pain, nausea, or vomiting. We'll plan on small bowel video capsule endoscopy tomorrow morning, patient will be given magnesium citrate this evening and nothing by mouth after midnight. Current Visit: Yes Status: Acute Code(s): D64.9 - ANEMIA, UNSPECIFIED SNOMED Code(s): 116643512 (2) Pancytopenia Narrative/Plan: hematology consulted Current Visit: Yes Status: Acute Code(s): D61.818 - OTHER PANCYTOPENIA SNOMED Code(s): 193510821 (3) Atrial fibrillation Narrative/Plan: Currently on Eliquis, which is on hold. Last dose 10/14/20. Cardiology following. 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 Plan is to proceed with push enteroscopy tomorrow. Current Visit: Yes Status: Acute Code(s): K55.20 - ANGIODYSPLASIA OF COLON WITHOUT HEMORRHAGE SNOMED Code(s): 573536668 Plan: 1. Heart helathy diet, NPO after midnight 2. Continue to hold Eliquis 4. Anemia panel ordered on pre-transfusion blood 5. Hematology consulted, appreciate their recommendations 6. Patient is status post 5 units of PRBC transfusion 7. Repeat CBC daily, transfuse for hemoglobin less than 7 8. Protonix 40 mg twice a day 10. Avoid NSAIDs 11. Small bowel video capsule endoscopy completed with findings of multiple AVMs 12. Will proceed with push enteroscopy 13. Magnesium citrate this evening 14. Watch for withdrawal symptoms, LISA johnson Thank you for this consultation, we will continue to follow Dr. Anderson Power I agree with the dictator's note, documented as a scribe by Niki Davis.
[2020-10-17] MEDS: SODIUM FERRIC GLUCONAT-SUCROSE 125 MG in SODIUM CHLORIDE 0.9% 100 ML IVPB SCH (16:15)
--- NOTE | 2020-10-17 16:32 | P.PN ---
Subjective Progress Note Date: 10/17/20 Patient denies any obvious bleeding. He continues to feel overall weak and gets short of breath on exertion. Today was 6.6 and is receiving another unit of blood. No fever/chills/nausea/vomiting Objective - Vital Signs Vital signs: Vital Signs Temp 98.9 F 10/17/20 15:44 Pulse 86 10/17/20 15:44 Resp 20 10/17/20 15:44 BP 132/82 10/17/20 15:44 Pulse Ox 100 10/17/20 15:44 Intake & Output 10/16/20 10/17/20 10/17/20 18:59 06:59 18:59 Intake Total 310 Balance 310 Intake: Blood Product 310 Rc As-1 Unit 310 [id number] Other: Voiding Method Toilet Toilet # Voids 8 - Constitutional General appearance: Present: no acute distress - EENT Eyes: Present: EOMI ENT: Present: hearing grossly normal, normal oropharynx - Respiratory Respiratory: bilateral: CTA - Cardiovascular Rhythm: irregularly irregular Heart sounds: normal: S1, S2 - Gastrointestinal General gastrointestinal: Present: normal bowel sounds, soft - Integumentary Integumentary: Present: normal - Neurologic Neurologic: Present: CNII-XII intact - Musculoskeletal Musculoskeletal: Present: generalized weakness, strength equal bilaterally - Psychiatric Psychiatric: Present: A&O x's 3, appropriate affect - Labs CBC & Chem 7: 10/17/20 07:03 10/17/20 07:03 Labs: Abnormal Lab Results - Last 24 Hours (Table) 10/14/20 10/16/20 10/17/20 Range/Units 13:40 16:58 07:03 WBC 1.7 L (3.8-10.6) k/uL RBC 2.37 L (4.30-5.90) m/uL Hgb 7.4 L (13.0-17.5) gm/dL Hct 22.3 L (39.0-53.0) % RDW 17.6 H (11.5-15.5) % Plt Count 102 L (150-450) k/uL Neutrophils # (1.3-7.7) k/uL Lymphocytes # (1.0-4.8) k/uL Sodium 134 L (137-145) mmol/L Potassium 3.4 L (3.5-5.1) mmol/L BUN 7 L (9-20) mg/dL Glucose 108 H (74-99) mg/dL Calcium 8.1 L (8.4-10.2) mg/dL Magnesium (1.6-2.3) mg/dL Crossmatch See Detail 10/17/20 10/17/20 Range/Units 07:03 07:03 WBC 1.3 L* (3.8-10.6) k/uL RBC 2.18 L (4.30-5.90) m/uL Hgb (13.0-17.5) gm/dL Hct 20.8 L (39.0-53.0) % RDW 17.6 H (11.5-15.5) % Plt Count 99 L (150-450) k/uL Neutrophils # 0.6 L (1.3-7.7) k/uL Lymphocytes # 0.5 L (1.0-4.8) k/uL Sodium (137-145) mmol/L Potassium (3.5-5.1) mmol/L BUN (9-20) mg/dL Glucose (74-99) mg/dL Calcium (8.4-10.2) mg/dL Magnesium 0.8 L* (1.6-2.3) mg/dL Crossmatch Assessment and Plan (1) Anemia due to blood loss Narrative/Plan: Patient's labs so far have confirmed iron deficiency anemia. The patient subsequently had his capsule endoscopy completed which confirmed AVMs as clinically suspected. He is set up for small bowel enteroscopy. Hemoglobin was 6.6 again today due to which discharge was held. His receiving another unit of blood - IV iron has been ordered. - Case discussed with cardiology in detail as noted. The patient's at the correlation has been discontinued. Even with aggressive iron supplementation, at this time his hemoglobin is too low to risk ongoing anticoagulation. This was is benefit aspect discussed in detail with him and he expressed understanding. - Patient was advised that at this time of focus will be on aggressive iron supplementation. He will receive additional IV iron as an outpatient scheduled by the office. We will reassess about 4-5 weeks after. If hemoglobin is improved into satisfactory range we discussed with the patient and cardiology about possible rechallenge with anticoagulation Current Visit: Yes Status: Acute Code(s): D50.0 - IRON DEFICIENCY ANEMIA SECONDARY TO BLOOD LOSS (CHRONIC) SNOMED Code(s): 283756965 (2) Pancytopenia Narrative/Plan: The patient has chronic pancytopenia with some worsening. Acute worsening this time could be due to his acute anemia and dilution from blood transfusion. Her main in the safe range with platelets greater than 50,000 and ANC greater than 500. Continue to monitor and supplement if needed. Lab work up is in progress. - Due to findings on computed tomography scan in 2018, CT chest abdomen and pelvis was repeated. This confirms what appears to be cirrhotic appearing liver with portal hypertension and splenomegaly. He has a history of water to heavy alcohol use over the past 50 years. Therefore chronic liver disease and portal hypertension is likely the main etiology for his thrombus cytopenia and leukopenia. Patient was advised that no specific treatment would be needed as long as counts are in a safe range. Main focus should be on alcohol cessation. Current Visit: Yes Status: Acute Code(s): D61.818 - OTHER PANCYTOPENIA SNOMED Code(s): 295776374 (3) Liver cirrhosis, alcoholic Narrative/Plan: CT scans and history most likely indicated the same. Check AFP. Consult gastroenterology Current Visit: Yes Status: Acute Code(s): K70.30 - ALCOHOLIC CIRRHOSIS OF LIVER WITHOUT ASCITES SNOMED Code(s): 814562615 (4) Lymphadenopathy Narrative/Plan: Patient's computed tomography scan also indicated soft tissue abnormalities in bilateral renal laura, and right pelvis. Exact etiology is unknown but these could represent lymphadenopathy. Implications were discussed in detail with the patient. At this time etiology is unknown. This could be benign, as he has a history of possible autoimmune disease. These are however not very accessible to tissue diagnosis. Lab work up for cytopenias pending which is also workup for lymphadenopathy. We will await those results. Follow-up further in the outpatient setting Current Visit: Yes Status: Acute Code(s): R59.1 - GENERALIZED ENLARGED LYMPH NODES SNOMED Code(s): 26128655
[2020-10-17] MEDS: LORazepam 2 MG/ML INJ IV PRN (17:36)
[2020-10-17] MEDS ORDERED: MAGNESIUM CITRATE 296 ML BOTTLE PO ONE ×2 (18:00→20:00)
[2020-10-17 18:56] LABS: Rheumatoid Factor, Qnt <4 IU/mL (0-15)
[2020-10-17 19:00] LABS: Protein, Total 5.1 g/dL (6.2-8.2)
[2020-10-17] MEDS: QUEtiapine 50 MG TAB PO SCH (20:28)
[2020-10-17 21:53] LABS: Anisocytosis Slight; HCT 24.1 % (39.0-53.0); Hypochromasia Moderate; MCH 31.3 pg (25.0-35.0); MCHC 33.6 g/dL (31.0-37.0); MCV 93.2 fL (80.0-100.0); Poikilocytosis Moderate; RBC 2.58 m/uL (4.30-5.90); RDW 17.4 % (11.5-15.5); WBC 1.7 k/uL (3.8-10.6)
[2020-10-17 22:02] LABS: African American GFR (CKD) >90 (>60 ml/min/1.73 sqM); Anion Gap 8 mmol/L; Blood Urea Nitrogen 7 mg/dL (9-20); Calcium 8.2 mg/dL (8.4-10.2); Carbon Dioxide 24 mmol/L (22-30); Chloride 101 mmol/L (98-107); Glucose 106 mg/dL (74-99); Non-African American GFR(CKD) >90 (>60 ml/min/1.73 sqM); Potassium 3.6 mmol/L (3.5-5.1); Sodium 133 mmol/L (137-145)
[2020-10-17 22:06] LABS: HGB 8.1 gm/dL (13.0-17.5)
[2020-10-17 22:34] LABS: Platelet Count 93 k/uL (150-450)
[2020-10-18] MEDS: SODIUM CHLORIDE 0.9% 1,000 ML IV SCH ×2 (03:20→10:40)
[2020-10-18] MEDS: LEVOTHYROXINE 100 MCG TAB PO SCH (06:17)
[2020-10-18] MEDS ORDERED: LIDOCAINE 1% INJ 10MG/ML (20 ML MDV) ONE (07:27)
[2020-10-18] MEDS ORDERED: PROPOFOL 10 MG/ML 20 ML VIAL IV ONE (07:27)
[2020-10-18] MEDS ORDERED: IV FLUID CONTINUATION 500 ML IV ONE (07:29)
--- NOTE | 2020-10-18 07:56 | P.PCN ---
Date of Procedure: 10/18/20 Procedure(s) Performed: BRIEF HISTORY: Patient is a 65-year-old, pleasant, white male admitted hospital with severe symptomatic anemia and hemoglobin of 5.6 g/dL receiving total of 4 units of peptic ulceration. He had an EGD and colonoscopy done by Dr Murcia 2 days ago that was unremarkable. He subsequently had a small bowel capsule endoscopy revealed multiple nonbleeding angiectasia in the distal duodenum and proximal jejunum and hence he scheduled for small bowel enteroscopy today.. PROCEDURE PERFORMED: Esophagogastroduodenoscopy/enteroscopy with argon plasma coagulation. PREOPERATIVE DIAGNOSIS: Severe symptomatic anemia and a negative EGD colonoscopy/small bowel capsule endoscopy revealing duodenal and jejunal angiectasia. IV sedation per anesthesia. PROCEDURE: After informed consent was obtained, the patient was brought into the endoscopy unit. IV sedation was administered by Anesthesia under continuous monitoring. Initially the Olympus GIF-140 video endoscope was inserted into the mouth. Esophagus intubated without any difficulty. It was gradually advanced into the stomach and duodenum and into the proximal jejunum. Approximately 40- 50 cm of the proximal jejunum was examined. There were scattered angiectasia noted in the proximal jejunum and at least 5 of nonbleeding angiectasia identified which were coagulated using argon plasma.. Scope was withdrawn into the duodenum. In the distal duodenum there was one small nonbleeding angiectasia identified that was cauterized. The rest of the duodenum appeared normal. The scope at this time was withdrawn to the stomach, adequately insufflated with air, and upon careful examination, mucosa of the antrum, body, cardia and the fundus appeared normal. The scope was then withdrawn into the esophagus. The GE junction was located at 39 cm from the incisors. The esophagus appeared normal. There were no erosions or ulcerations seen and the patient tolerated the procedure well. IMPRESSION: 1. 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 2. Gastritis. RECOMMENDATIONS: The findings of this examination were discussed with the patient. His diet will be advanced as tolerated. Monitor CBC daily. Anti- coagulation can be resumed if indicated..
[2020-10-18 08:14] VITALS: RESP 18
[2020-10-18] MEDS: lisinopriL 20 MG TAB PO SCH (08:24)
[2020-10-18] MEDS: FUROSEMIDE 40 MG TAB PO SCH (08:24)
[2020-10-18] MEDS: NICOTINE 14MG/24HR PATCH TRANSDERM SCH (08:24)
[2020-10-18] MEDS: PANTOPRAZOLE 40 MG TABLET PO SCH (08:25)
[2020-10-18] MEDS: METOPROLOL SUCCINATE (ER) 25 MG TAB.ER.24H PO SCH (08:25)
[2020-10-18] MEDS: THIAMINE 100 MG TAB PO SCH (08:25)
[2020-10-18 09:02] LABS: ALT 13 U/L (4-49); AST 27 U/L (17-59); African American GFR (CKD) >90 (>60 ml/min/1.73 sqM); Albumin 3.4 g/dL (3.5-5.0); Albumin/Globulin Ratio 1.7; Alkaline Phosphatase 152 U/L (38-126); Anion Gap 7 mmol/L; Blood Urea Nitrogen 6 mg/dL (9-20); Calcium 8.5 mg/dL (8.4-10.2); Carbon Dioxide 24 mmol/L (22-30); Chloride 103 mmol/L (98-107); Glucose 100 mg/dL (74-99); Magnesium 1.2 mg/dL (1.6-2.3); Non-African American GFR(CKD) >90 (>60 ml/min/1.73 sqM); Potassium 3.5 mmol/L (3.5-5.1); Sodium 134 mmol/L (137-145); Total Bilirubin 1.9 mg/dL (0.2-1.3); Total Protein 5.4 g/dL (6.3-8.2)
[2020-10-18] MEDS: SODIUM FERRIC GLUCONAT-SUCROSE 125 MG in SODIUM CHLORIDE 0.9% 100 ML IVPB SCH (09:10)
[2020-10-18 09:48] LABS: Anisocytosis Slight; Basophils % (A) 1 %; Eosinophils % (A) 1 %; HGB 7.6 gm/dL (13.0-17.5); Hypochromasia Moderate; Lymphocytes # (A) 0.4 k/uL (1.0-4.8); Lymphocytes % (A) 32 %; MCH 30.2 pg (25.0-35.0); MCHC 31.8 g/dL (31.0-37.0); MCV 95.1 fL (80.0-100.0); Macrocytosis Slight; Mean Platelet Volume 8.5; Monocytes # (A) 0.2 k/uL (0-1.0); Monocytes % (A) 12 %; Neutrophils # (A) 0.7 k/uL (1.3-7.7); Neutrophils % (A) 52 %; Poikilocytosis Slight; RBC 2.53 m/uL (4.30-5.90); RDW 17.6 % (11.5-15.5)
[2020-10-18 09:52] LABS: WBC 1.3 k/uL (3.8-10.6)
[2020-10-18 09:53] LABS: Platelet Count 89 k/uL (150-450)
[2020-10-18] MEDS: HYDROcodone/APAP 10-325MG 1 EACH TAB PO PRN (10:29)
[2020-10-18] MEDS: MAGNESIUM SULFATE-D5W PMX 1 GM in DEXTROSE/WATER 1 100ML.BAG IVPB SCH ×3 (10:39→13:02)
--- NOTE | 2020-10-18 12:17 | P.DS ---
Providers Date of admission: 10/14/20 14:34 Attending physician: Cosmo Light MD Consults: 10/14/20 14:35 Consult Physician Routine Consulting Provider: Norman Murcia Consult Reason/Comments: gi bleed? Do you want consulting provider notified?: Yes 10/15/20 09:26 Consult Physician Routine Consulting Provider: Adrien Minor Consult Reason/Comments: Eliquis need? GI bleed? Do you want consulting provider notified?: Yes 10/15/20 14:07 Consult Physician Routine Consulting Provider: hSayan Corona Consult Reason/Comments: pancytopenia Do you want consulting provider notified?: Yes Primary care physician: Lucia [facility] Hospital Course: 65-year-old male was admitted for the upper GI bleed patient was having.stools. Patient is found to have very low hemoglobin and was transfused about 3-4 units during this hospitalization. Patient had an upper GI endoscopy, capsule endoscopy and capsule endoscopy showed multiple AVMs in the proximal small bowel underwent push enteroscopy and found to have nonbleeding angiectasia in the distal the added him to a total of 5 them that were I identified and patient had 5 of them and plasma coagulation and patient is also found to have gastritis. Patient is was a not bleeding at this time. Patient is also on anti-correlation with Eliquis for atrial fibrillation. Patient was evaluated by hematology oncology as well as cardiology. Considering his high risk for bleeding and considering his alcohol abuse history and borderline hemoglobin, hematology and cardiology of not recommending anti-correlation and correlation will be held. Patient can use to drink alcohol patient is pancytopenia because of bone marrow suppression from alcohol use. Extensive counseling was provided regarding this. Oncology is recommending and supplementation position of which was provided to the patient and patient will follow with to hematology, gastroenterology, cardiology as an outpatient patient will follow up with the severe as an outpatient as well and patient will be discharged today. Patient can use to smoke counseling was provided regarding this. PHYSICAL EXAMINATION: GENERAL: The patient is alert and oriented x3, not in any acute distress. Well developed, well nourished. HEENT: Pupils are round and equally reacting to light. EOMI. No scleral icterus. No conjunctival pallor. Normocephalic, atraumatic. No pharyngeal erythema. No thyromegaly. CARDIOVASCULAR: S1 and S2 present. No murmurs, rubs, or gallops. PULMONARY: Chest is clear to auscultation, no wheezing or crackles. ABDOMEN: Soft, nontender, nondistended, normoactive bowel sounds. No palpable organomegaly. MUSCULOSKELETAL: No joint swelling or deformity. EXTREMITIES: No cyanosis, clubbing, or pedal edema. NEUROLOGICAL: Gross neurological examination did not reveal any focal deficits. SKIN: No rashes. The rest of the medical problems and hospital physician course please refer to documentation by Dr. Light as today. Patient Condition at Discharge: Stable Plan - Discharge Summary Discharge Rx Participant: No New Discharge Prescriptions: New Folic Acid 1 mg PO DAILY #1 tablet Thiamine [Vitamin B-1] 100 mg PO DAILY tab Nicotine 14Mg/24Hr Patch [Habitrol] 1 patch TRANSDERM DAILY #1 patch Metoprolol Succinate (ER) [Toprol XL] 25 mg PO DAILY #30 tab.er.24h Ferrous Sulfate [Feosol] 325 mg PO BID #60 tab Continue HYDROcodone/APAP 10-325MG [[place] 10-325] 1 tab PO QID PRN PRN Reason: Pain Potassium Chloride 10 meq PO BID Furosemide [Lasix] 40 mg PO DAILY lisinopriL [Zestril] 40 mg PO DAILY Levothyroxine Sodium [Synthroid] 100 mcg PO DAILY Omeprazole 40 mg PO DAILY Changed QUEtiapine [SEROquel] 50 mg PO HS #0 Discontinued Apixaban [Eliquis] 5 mg PO BID #180 tab Discharge Medication List HYDROcodone/APAP 10-325MG [[place] 10-325] 1 tab PO QID PRN 07/05/17 [History] Potassium Chloride 10 meq PO BID 06/06/20 [History] Furosemide [Lasix] 40 mg PO DAILY 08/12/20 [History] lisinopriL [Zestril] 40 mg PO DAILY 08/12/20 [History] Levothyroxine Sodium [Synthroid] 100 mcg PO DAILY 10/14/20 [History] Omeprazole 40 mg PO DAILY 10/14/20 [History] Folic Acid 1 mg PO DAILY #1 tablet 10/17/20 [Rx] Metoprolol Succinate (ER) [Toprol XL] 25 mg PO DAILY #30 tab.er.24h 10/17/20 [Rx] Nicotine 14Mg/24Hr Patch [Habitrol] 1 patch TRANSDERM DAILY #1 patch 10/17/20 [Rx] QUEtiapine [SEROquel] 50 mg PO HS #0 10/17/20 [Rx] Thiamine [Vitamin B-1] 100 mg PO DAILY tab 10/17/20 [Rx] Ferrous Sulfate [Feosol] 325 mg PO BID #60 tab 10/18/20 [Rx] Follow up Appointment(s)/Referral(s): Shayan Corona MD [STAFF PHYSICIAN] - Pablo Daigle DO [STAFF PHYSICIAN] - 2 Weeks Lucia Lihgt DO [Primary Care Provider] - 3 Days Catherine Power MD [STAFF PHYSICIAN] - 2 Weeks Ambulatory/Diagnostic Orders: Complete Blood Count w/diff [LAB.AMB] Time Frame: 3 Days, Location: None Selected Activity/Diet/Wound Care/Special Instructions: Outpatient IV iron to be arranged in clinic by PCP, as recommended per hematology.
[2020-10-18 12:59] LABS: Band Neutrophils % 1 %; Basophils # (M) 0.01 k/uL (0-0.2); Eosinophils # (M) 0.03 k/uL (0-0.7); Lymphocytes # (M) 0.46 k/uL (1.0-4.8); Metamyelocytes # (M) 0.01 k/uL (0); Metamyelocytes % 1 %; Monocytes # (M) 0.12 k/uL (0-1.0); Myelocytes # (M) 0.01 k/uL (0); Myelocytes % 1 %; Neutrophils % (M) 52 %; Nucleated Red Blood Cells 0 /100 WBC (0-0); Total Cells Counted 200
[2020-10-18 14:35] VITALS: BP 126/73; PULSE 94; TEMP 98.2
[2020-10-19 08:23] LABS: Free Kappa Lt Chain Qnt, Serum 1.65 mg/dL (0.33-1.94)
[2020-10-20 15:17] LABS: Albumin 3.22 g/dL (3.80-4.90); Gamma Globulin 0.46 g/dL (0.70-1.50)
== END 2020-10-18 14:48 | disposition home or self-care (01) | DRG 378 ==
LOC: EC 12:49 → 4SSUR 14:34
PROVIDERS: ADMIT Family Medicine; ATTEND Family Medicine
PROC: 0W3P8ZZ Control Bleeding in Gastrointestinal Tract, Via Natural or Artificial Opening Endoscopic (ICD-10-PCS; principal; 2020-10-18 07:30)
DX: K31.811 Angiodysplasia of stomach and duodenum with bleeding (principal); D61.818 Other pancytopenia; F10.239 Alcohol dependence with withdrawal, unspecified; I48.20 Chronic atrial fibrillation, unspecified; I50.32 Chronic diastolic (congestive) heart failure; K76.6 Portal hypertension; I99.8 Other disorder of circulatory system; D50.0 Iron deficiency anemia secondary to blood loss (chronic); E03.9 Hypothyroidism, unspecified; E78.5 Hyperlipidemia, unspecified; F17.210 Nicotine dependence, cigarettes, uncomplicated; F41.9 Anxiety disorder, unspecified; M48.00 Spinal stenosis, site unspecified; G89.29 Other chronic pain; R00.1 Bradycardia, unspecified; I08.1 Rheumatic disorders of both mitral and tricuspid valves; R16.2 Hepatomegaly with splenomegaly, not elsewhere classified; M19.90 Unspecified osteoarthritis, unspecified site; I11.0 Hypertensive heart disease with heart failure; K70.30 Alcoholic cirrhosis of liver without ascites; I87.2 Venous insufficiency (chronic) (peripheral); K29.70 Gastritis, unspecified, without bleeding; K55.20 Angiodysplasia of colon without hemorrhage; K63.5 Polyp of colon; Z79.01 Long term (current) use of anticoagulants; Z79.890 Hormone replacement therapy; Z79.899 Other long term (current) drug therapy; Z82.49 Family history of ischemic heart disease and other diseases of the circulatory system; Z87.11 Personal history of peptic ulcer disease; Z87.19 Personal history of other diseases of the digestive system; Z98.890 Other specified postprocedural states
CPT/HCPCS: 36415; 44369; 74177; 80048; 80053; 82272; 82607; 82728; 82746; 83010; 83540; 83550; 83735; 83883; 84165; 85025; 85027; 85045; 85610; 85730; 86038; 86039; 86334; 86431; 86850; 86900; 86901; 86920; 91110; 93005; 96374; 99285

== ENCOUNTER 2021-02-10 10:32 | Inpatient (IN) | payer MEDICARE ==
[2021-02-10] MEDS ORDERED: PANTOPRAZOLE 40 MG/10 ML VIAL IVP STA (10:51)
[2021-02-10 11:13] LABS: Anisocytosis Slight; MCH 38.7 pg (25.0-35.0); MCHC 34.2 g/dL (31.0-37.0); MCV 113.3 fL (80.0-100.0); Macrocytosis Marked; Mean Platelet Volume 9.2; Platelet Count 139 k/uL (150-450); Poikilocytosis Slight; RBC 1.76 m/uL (4.30-5.90); RDW 16.3 % (11.5-15.5); WBC 1.5 k/uL (3.8-10.6)
[2021-02-10 11:17] LABS: ALT 15 U/L (4-49); AST 28 U/L (17-59); African American GFR (CKD) >90 (>60 ml/min/1.73 sqM); Albumin 3.4 g/dL (3.5-5.0); Alkaline Phosphatase 227 U/L (38-126); Anion Gap 10 mmol/L; Blood Urea Nitrogen 14 mg/dL (9-20); Calcium 8.4 mg/dL (8.4-10.2); Carbon Dioxide 19 mmol/L (22-30); Chloride 100 mmol/L (98-107); Glucose 114 mg/dL (74-99); HGB 6.8 gm/dL (13.0-17.5); Non-African American GFR(CKD) 86 (>60 ml/min/1.73 sqM); Sodium 129 mmol/L (137-145); Total Bilirubin 3.1 mg/dL (0.2-1.3); Total Protein 5.9 g/dL (6.3-8.2)
[2021-02-10 11:24] LABS: INR 1.2 (<1.2); Partial Thromboplastin Time 23.8 sec (22.0-30.0); Prothrombin Time 12.2 sec (9.0-12.0)
[2021-02-10 11:33] LABS: Magnesium 0.8 mg/dL (1.6-2.3)
[2021-02-10] MEDS ORDERED: MAGNESIUM SULFATE-D5W PMX 1 GM in DEXTROSE/WATER 1 100ML.BAG IVPB STA (11:37)
--- NOTE | 2021-02-10 12:19 | XR ---
EXAMINATION TYPE: XR chest 2V DATE OF EXAM: 02/10/2021 COMPARISON: Chest x-ray March 29, 2020 HISTORY: Weakness. TECHNIQUE: Frontal and lateral views of the chest are obtained. FINDINGS: There is no focal air space opacity, pleural effusion, or pneumothorax seen. The cardiac silhouette size is stable and mildly enlarged. The osseous structures are intact. IMPRESSION: Mild cardiomegaly without acute pulmonary process. No significant change from prior.
[2021-02-10 12:29] LABS: Band Neutrophils % 1 %; Basophils # (M) 0.03 k/uL (0-0.2); Eosinophils # (M) 0.02 k/uL (0-0.7); Lymphocytes # (M) 0.56 k/uL (1.0-4.8); Metamyelocytes # (M) 0.03 k/uL (0); Metamyelocytes % 2 %; Monocytes # (M) 0.26 k/uL (0-1.0); Myelocytes # (M) 0.06 k/uL (0); Myelocytes % 4 %; Neutrophils % (M) 36 %; Nucleated Red Blood Cells 0 /100 WBC (0-0); Total Cells Counted 100
[2021-02-10] MEDS ORDERED: SODIUM CHLORIDE 0.9% 1,000 ML IV STA (12:50)
[2021-02-10] MEDS ORDERED: NALOXONE 0.4 MG/ML 1 ML VIAL IV PRN (12:52)
--- NOTE | 2021-02-10 12:52 | ED ---
General Adult HPI - General Chief complaint: GI Bleed Stated complaint: Weakness Time Seen by Provider: 02/10/21 10:51 Source: patient, EMS, RN notes reviewed Mode of arrival: EMS Limitations: no limitations - History of Present Illness Initial comments: 65-year-old male with a past medical history of atrial fibrillation, heart failure, hypertension presents to the emergency room for a chief complaint of weakness. Patient states he is just "out of gas." Patient states that his doctor did blood work on him and then told him to come to the emergency room because his hemoglobin was low. Patient has been having dark stools as well as diarrhea over the past several weeks. He does take iron but the stools seem different. Denies any chest pain or shortness of breath.Patient has no other complaints at this time including shortness of breath, chest pain, abdominal pain, nausea or vomiting, headache, or visual changes. - Related Data Home Medications Medication Instructions Recorded Confirmed HYDROcodone/APAP 10-325MG [[place] 1 tab PO QID PRN 07/05/17 10/14/20 10-325] Potassium Chloride [Potassium 10 meq PO BID 06/06/20 10/14/20 Chloride ER] Furosemide [Lasix] 40 mg PO DAILY 08/12/20 10/14/20 lisinopriL [Zestril] 40 mg PO DAILY 08/12/20 10/14/20 Levothyroxine Sodium [Synthroid] 100 mcg PO DAILY 10/14/20 10/14/20 Omeprazole 40 mg PO DAILY 10/14/20 10/14/20 Albuterol Inhaler [Ventolin Hfa 2 puff INHALATION RT-QID PRN 02/10/21 02/10/21 Inhaler] Nadolol [Corgard] 40 mg PO DAILY 02/10/21 02/10/21 QUEtiapine [SEROquel] 50 - 100 mg PO HS 02/10/21 amLODIPine [Norvasc] 10 mg PO DAILY 02/10/21 02/10/21 Previous Rx's Medication Instructions Recorded Ferrous Sulfate [Feosol] 325 mg PO BID #60 tab 10/18/20 Allergies Allergy/AdvReac Type Severity Reaction Status Date / Time cholesterol meds AdvReac See Uncoded 02/10/21 12:46 comments Review of Systems ROS Statement: Those systems with pertinent positive or pertinent negative responses have been documented in the HPI. ROS Other: All systems not noted in ROS Statement are negative. Past Medical History Past Medical History: Atrial Fibrillation, Heart Failure, Hypertension, Osteoarthritis (OA), Thyroid Disorder Additional Past Medical History / Comment(s): having dk colored stools, anemia,received 1rst dose of Moderna vaccine,Had upper respitory infection May 2020 tx with antibiotics, had negative covid test, chronic pain low back, spinal stenosis, past Dimas's palsy. History of Any Multi-Drug Resistant Organisms: None Reported Past Surgical History: Hernia Repair Additional Past Surgical History / Comment(s): CARROLL,Abdominal hernia repair, R thigh fatty tumor removed, colonoscopies, epidural injections low back. Past Anesthesia/Blood Transfusion Reactions: No Reported Reaction Past Psychological History: Anxiety Smoking Status: Current every day smoker Past Alcohol Use History: Occasional Past Drug Use History: None Reported - Past Family History Father Family Medical History: Hypertension Additional Family Medical History / Comment(s): heart valve replacements. General Exam Limitations: no limitations General appearance: alert, in no apparent distress Head exam: Present: atraumatic Eye exam: Present: normal appearance, PERRL, EOMI. Absent: scleral icterus, conjunctival injection ENT exam: Present: normal exam, mucous membranes moist Neck exam: Present: normal inspection, full ROM. Absent: tenderness Respiratory exam: Present: normal lung sounds bilaterally. Absent: respiratory distress, wheezes Cardiovascular Exam: Present: regular rate, normal rhythm, normal heart sounds GI/Abdominal exam: Present: soft, normal bowel sounds. Absent: distended, tenderness Neurological exam: Present: alert Course Vital Signs 02/10/21 02/10/21 10:33 11:08 Temperature 97.5 F L Pulse Rate 76 Respiratory 16 Rate Blood Pressure 111/62 O2 Sat by Pulse 93 L Oximetry EKG Findings - EKG Comments: EKG Findings:: Atrial fibrillation, ventricular rate 78, QRS duration is 90, QTC 430. Patient does have T-wave inversions in the lateral leads. I did compare this to previous EKG from October and it is unchanged. Medical Decision Making - Medical Decision Making Vitals are stable. Patient does appear pale. CBC did reveal hemoglobin of 6.8. Patient has had low hemoglobin in the past whenever needed for transfusions during that time. His hemoglobin is usually higher. We will transfuse patient at this time. CMP does show mild hyponatremia, will be replaced so slowly. Hypomagnesemia of 0.8 noted. Ordered 4 g of mag. We are pending occult blood. Patient will be admitted, Dr. King did accept the admission. - Lab Data Result diagrams: 02/10/21 10:54 02/10/21 10:54 Lab Results 02/10/21 02/10/21 02/10/21 Range/Units 10:54 10:54 10:54 WBC 1.5 L (3.8-10.6) k/uL RBC 1.76 L (4.30-5.90) m/uL Hgb 6.8 L* (13.0-17.5) gm/dL Hct 20.0 L (39.0-53.0) % MCV 113.3 H (80.0-100.0) fL MCH 38.7 H (25.0-35.0) pg MCHC 34.2 (31.0-37.0) g/dL RDW 16.3 H (11.5-15.5) % Plt Count 139 L (150-450) k/uL MPV 9.2 Neutrophils % Not Reportable Neutrophils % (Manual) 36 % Band Neuts % (Manual) 1 % Lymphocytes % Not Reportable Lymphocytes % (Manual) 37 % Monocytes % Not Reportable Monocytes % (Manual) 17 % Eosinophils % Not Reportable Eosinophils % (Manual) 1 % Basophils % Not Reportable Basophils % (Manual) 2 % Metamyelocytes % 2 % Myelocytes % 4 % Neutrophils # Not Reportable Neutrophils # (Manual) 0.50 L (1.3-7.7) k/uL Lymphocytes # Not Reportable Lymphocytes # (Manual) 0.56 L (1.0-4.8) k/uL Monocytes # Not Reportable Monocytes # (Manual) 0.26 (0-1.0) k/uL Eosinophils # Not Reportable Eosinophils # (Manual) 0.02 (0-0.7) k/uL Basophils # Not Reportable Basophils # (Manual) 0.03 (0-0.2) k/uL Metamyelocytes # (Man) 0.03 H (0) k/uL Myelocytes # (Manual) 0.06 H (0) k/uL Nucleated RBCs 0 (0-0) /100 WBC Manual Slide Review Performed Poikilocytosis Slight Anisocytosis Slight Macrocytosis Marked A PT 12.2 H (9.0-12.0) sec INR 1.2 H (<1.2) APTT 23.8 (22.0-30.0) sec Sodium 129 L (137-145) mmol/L Potassium 4.0 (3.5-5.1) mmol/L Chloride 100 (98-107) mmol/L Carbon Dioxide 19 L (22-30) mmol/L Anion Gap 10 mmol/L BUN 14 (9-20) mg/dL Creatinine 0.93 (0.66-1.25) mg/dL Est GFR (CKD-EPI)AfAm >90 (>60 ml/min/1.73 sqM) Est GFR (CKD-EPI)NonAf 86 (>60 ml/min/1.73 sqM) Glucose 114 H (74-99) mg/dL Calcium 8.4 (8.4-10.2) mg/dL Magnesium 0.8 L* (1.6-2.3) mg/dL Total Bilirubin 3.1 H (0.2-1.3) mg/dL AST 28 (17-59) U/L ALT 15 (4-49) U/L Alkaline Phosphatase 227 H (38-126) U/L Total Protein 5.9 L (6.3-8.2) g/dL Albumin 3.4 L (3.5-5.0) g/dL Coronavirus (PCR) (Not Detectd) Blood Type Blood Type Recheck Bld Type Recheck Status Antibody Screen Crossmatch Spec Expiration Date 02/10/21 02/10/21 Range/Units 10:54 11:43 WBC (3.8-10.6) k/uL RBC (4.30-5.90) m/uL Hgb (13.0-17.5) gm/dL Hct (39.0-53.0) % MCV (80.0-100.0) fL MCH (25.0-35.0) pg MCHC (31.0-37.0) g/dL RDW (11.5-15.5) % Plt Count (150-450) k/uL MPV Neutrophils % Neutrophils % (Manual) % Band Neuts % (Manual) % Lymphocytes % Lymphocytes % (Manual) % Monocytes % Monocytes % (Manual) % Eosinophils % Eosinophils % (Manual) % Basophils % Basophils % (Manual) % Metamyelocytes % % Myelocytes % % Neutrophils # Neutrophils # (Manual) (1.3-7.7) k/uL Lymphocytes # Lymphocytes # (Manual) (1.0-4.8) k/uL Monocytes # Monocytes # (Manual) (0-1.0) k/uL Eosinophils # Eosinophils # (Manual) (0-0.7) k/uL Basophils # Basophils # (Manual) (0-0.2) k/uL Metamyelocytes # (Man) (0) k/uL Myelocytes # (Manual) (0) k/uL Nucleated RBCs (0-0) /100 WBC Manual Slide Review Poikilocytosis Anisocytosis Macrocytosis PT (9.0-12.0) sec INR (<1.2) APTT (22.0-30.0) sec Sodium (137-145) mmol/L Potassium (3.5-5.1) mmol/L Chloride (98-107) mmol/L Carbon Dioxide (22-30) mmol/L Anion Gap mmol/L BUN (9-20) mg/dL Creatinine (0.66-1.25) mg/dL Est GFR (CKD-EPI)AfAm (>60 ml/min/1.73 sqM) Est GFR (CKD-EPI)NonAf (>60 ml/min/1.73 sqM) Glucose (74-99) mg/dL Calcium (8.4-10.2) mg/dL Magnesium (1.6-2.3) mg/dL Total Bilirubin (0.2-1.3) mg/dL AST (17-59) U/L ALT (4-49) U/L Alkaline Phosphatase (38-126) U/L Total Protein (6.3-8.2) g/dL Albumin (3.5-5.0) g/dL Coronavirus (PCR) Not Detected (Not Detectd) Blood Type O Positive Blood Type Recheck O Pos Bld Type Recheck Status No Antibody Screen NEGATIVE Crossmatch See Detail Spec Expiration Date 02/13/20212353 Disposition Clinical Impression: Anemia, Leukocytopenia, Weakness, Hypomagnesemia, Hyponatremia Disposition: ADMITTED IP TO THIS HOSP Is patient prescribed a controlled substance at d/c from ED?: No Referrals: Lucia Light DO [Primary Care Provider] - 1-2 days Time of Disposition: 12:51
--- NOTE | 2021-02-10 12:53 | P.HPIM ---
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 Patient is presently not on any anticoagulation or antiplatelet therapy with came in with very low hemoglobin generalized tiredness and weakness and found to have hemoglobin of 6.8 because of which patient was sent to the hospital. Patient does have pancytopenia directed have history of alcohol abuse and believed to have bone marrow suppression. Patient does have distention of the abdomen and may have ascites supposed to get an outpatient ultrasound today. Patient also has very low magnesium of 0.8. Patient is also hyponatremic his medications are not veri fied appears to be on Lasix for cirrhosis and volume overload secondary to that. Patient had normal ejection fraction the past patient is supposed to get cardiac catheterization as an outpatient this Tuesday. She does admit to having diarrhea and multiple or Doxil stress today and one episode of Doxil today. Gastric body will be consulted. REVIEW OF SYSTEMS: CONSTITUTIONAL: No fever. HEENT: No recent visual problems or hearing problems. Denied any sore throat. CARDIOVASCULAR: No chest pain, orthopnea, PND, no palpitations, no syncope. PULMONARY: No shortness of breath, no cough, no hemoptysis. GASTROINTESTINAL: No diarrhea, no nausea, no vomiting, no abdominal pain. NEUROLOGICAL: No headaches, no weakness, no numbness. HEMATOLOGICAL: Denies any bleeding or petechiae. GENITOURINARY: Denies any burning micturition, frequency, or urgency. MUSCULOSKELETAL/RHEUMATOLOGICAL: Denies any joint pain, swelling, or any muscle pain. ENDOCRINE: Denies any polyuria or polydipsia. The rest of the 14-point review of systems is negative. PHYSICAL EXAMINATION: GENERAL: The patient is alert and oriented x3, not in any acute distress. Well developed, well nourished. HEENT: Pupils are round and equally reacting to light. EOMI. No scleral icterus. Does have conjunctival pallor . Normocephalic, atraumatic. No pharyngeal erythema. No thyromegaly. CARDIOVASCULAR: S1 and S2 present. No murmurs, rubs, or gallops. PULMONARY: Chest is clear to auscultation, no wheezing or crackles. ABDOMEN: Soft, nontender, distended with fluid shift normoactive bowel sounds. No palpable organomegaly. MUSCULOSKELETAL: No joint swelling or deformity. EXTREMITIES: No cyanosis, clubbing, bilateral lower extremity edema NEUROLOGICAL: Gross neurological examination did not reveal any focal deficits. SKIN: No rashes. Assessment and plan -Possibly acute upper GI bleed probably from AV malformation: Gastric body was consulted will transfused 2 units of PRBC. -Hyponatremia appears to be hypervolemic hyponatremia from cirrhosis patient probably will need IV Lasix. -Chronic A. fib patient is presently in atrial fibrillation mildly elevated heart rate not on any anti-correlation because of her risk of GI bleed and patient probably is having GI bleed at this time. -Hypomagnesemia: Due to chronic alcoholism although didn't check with the patient if he is actively drinking now patient will be given 4 g of magnesium sulfate -Nicotine use: Counseling was provided -Volume overload secondary to cirrhosis -Hypertension -Hypothyroidism DVT prophylaxis: No pharmacological anticoagulation because of GI bleed Past Medical History Past Medical History: Atrial Fibrillation, Heart Failure, Hypertension, Osteoarthritis (OA), Thyroid Disorder Additional Past Medical History / Comment(s): having dk colored stools, anemia,received 1rst dose of Moderna vaccine,Had upper respitory infection May 2020 tx with antibiotics, had negative covid test, chronic pain low back, spinal stenosis, past Dimas's palsy. History of Any Multi-Drug Resistant Organisms: None Reported Past Surgical History: Hernia Repair Additional Past Surgical History / Comment(s): CARROLL,Abdominal hernia repair, R thigh fatty tumor removed, colonoscopies, epidural injections low back. Past Anesthesia/Blood Transfusion Reactions: No Reported Reaction Past Psychological History: Anxiety Smoking Status: Current every day smoker Past Alcohol Use History: Occasional Past Drug Use History: None Reported - Past Family History Father Family Medical History: Hypertension Additional Family Medical History / Comment(s): heart valve replacements. Medications and Allergies Home Medications Medication Instructions Recorded Confirmed Type HYDROcodone/APAP 10-325MG [[place] 1 tab PO QID PRN 07/05/17 02/10/21 History 10-325] Potassium Chloride [Potassium 10 meq PO BID 06/06/20 02/10/21 History Chloride ER] Furosemide [Lasix] 40 mg PO DAILY 08/12/20 02/10/21 History lisinopriL [Zestril] 40 mg PO DAILY 08/12/20 02/10/21 History Levothyroxine Sodium [Synthroid] 100 mcg PO DAILY 10/14/20 02/10/21 History Omeprazole 40 mg PO DAILY 10/14/20 02/10/21 History Ferrous Sulfate [Feosol] 325 mg PO BID #60 tab 10/18/20 02/10/21 Rx Albuterol Inhaler [Ventolin Hfa 2 puff INHALATION RT-QID PRN 02/10/21 02/10/21 History Inhaler] Nadolol [Corgard] 40 mg PO DAILY 02/10/21 02/10/21 History QUEtiapine [SEROquel] 50 - 100 mg PO HS 02/10/21 02/10/21 History amLODIPine [Norvasc] 10 mg PO DAILY 02/10/21 02/10/21 History Allergies Allergy/AdvReac Type Severity Reaction Status Date / Time cholesterol meds AdvReac See Uncoded 02/10/21 12:46 comments Physical Exam Vitals: Vital Signs Temp Pulse Resp BP Pulse Ox 02/10/21 11:08 76 93 L 02/10/21 10:33 97.5 F L 16 111/62 Intake and Output 02/09/21 02/10/21 02/10/21 22:59 06:59 14:59 Other: Weight 115.666 kg Results CBC & Chem 7: 02/10/21 10:54 02/10/21 10:54 Labs: Abnormal Lab Results - Last 24 Hours (Table) 02/10/21 02/10/21 02/10/21 Range/Units 10:54 10:54 10:54 WBC 1.5 L (3.8-10.6) k/uL RBC 1.76 L (4.30-5.90) m/uL Hgb 6.8 L* (13.0-17.5) gm/dL Hct 20.0 L (39.0-53.0) % MCV 113.3 H (80.0-100.0) fL MCH 38.7 H (25.0-35.0) pg RDW 16.3 H (11.5-15.5) % Plt Count 139 L (150-450) k/uL Neutrophils # (Manual) 0.50 L (1.3-7.7) k/uL Lymphocytes # (Manual) 0.56 L (1.0-4.8) k/uL Metamyelocytes # (Man) 0.03 H (0) k/uL Myelocytes # (Manual) 0.06 H (0) k/uL Macrocytosis Marked A PT 12.2 H (9.0-12.0) sec INR 1.2 H (<1.2) Sodium 129 L (137-145) mmol/L Carbon Dioxide 19 L (22-30) mmol/L Glucose 114 H (74-99) mg/dL Magnesium 0.8 L* (1.6-2.3) mg/dL Total Bilirubin 3.1 H (0.2-1.3) mg/dL Alkaline Phosphatase 227 H (38-126) U/L Total Protein 5.9 L (6.3-8.2) g/dL Albumin 3.4 L (3.5-5.0) g/dL Crossmatch 02/10/21 Range/Units 10:54 WBC (3.8-10.6) k/uL RBC (4.30-5.90) m/uL Hgb (13.0-17.5) gm/dL Hct (39.0-53.0) % MCV (80.0-100.0) fL MCH (25.0-35.0) pg RDW (11.5-15.5) % Plt Count (150-450) k/uL Neutrophils # (Manual) (1.3-7.7) k/uL Lymphocytes # (Manual) (1.0-4.8) k/uL Metamyelocytes # (Man) (0) k/uL Myelocytes # (Manual) (0) k/uL Macrocytosis PT (9.0-12.0) sec INR (<1.2) Sodium (137-145) mmol/L Carbon Dioxide (22-30) mmol/L Glucose (74-99) mg/dL Magnesium (1.6-2.3) mg/dL Total Bilirubin (0.2-1.3) mg/dL Alkaline Phosphatase (38-126) U/L Total Protein (6.3-8.2) g/dL Albumin (3.5-5.0) g/dL Crossmatch See Detail
[2021-02-10 13:25] LABS: Appearance,Urine Clear (Clear); Bilirubin,Urine Negative (Negative); Blood,Urine Negative (Negative); Color,Urine Yellow; Glucose,Urine (UA) Negative (Negative); Ketones,Urine Negative (Negative); Leukocyte Esterase,Urine Negative (Negative); Nitrite,Urine Negative (Negative); Protein,Urine Trace (Negative); Specific Gravity,Urine 1.012 (1.001-1.035); Urobilinogen,Urine <2.0 mg/dL (<2.0)
[2021-02-10] MEDS: HYDROcodone/APAP 10-325MG 1 EACH TAB PO PRN ×2 (13:29→17:23)
[2021-02-10] MEDS: MAGNESIUM SULFATE-D5W PMX 1 GM in DEXTROSE/WATER 1 100ML.BAG IVPB SCH ×2 (13:30→14:39)
--- NOTE | 2021-02-10 13:53 | US ---
EXAMINATION TYPE: US abdomen limited DATE OF EXAM: 02/10/2021 COMPARISON: NONE CLINICAL HISTORY: Ascites. ABD distention Moderate amount of ascites, more in right flank vs. left flank IMPRESSION: 1. Moderate ascites right abdomen.
[2021-02-10] MEDS: ALBUTEROL HFA INHALER INHALATION PRN (15:24)
[2021-02-10] MEDS: QUEtiapine 50 MG TAB PO SCH (20:39)
[2021-02-10] MEDS: FERROUS SULFATE 325 MG TAB PO SCH (20:39)
[2021-02-10] MEDS: POTASSIUM CHLORIDE ER 10 MEQ TAB.ER.PRT PO SCH (20:39)
[2021-02-11] MEDS: LEVOTHYROXINE 100 MCG TAB PO SCH (05:53)
[2021-02-11 07:47] LABS: Anisocytosis Moderate; HCT 20.8 % (39.0-53.0); Hypochromasia Slight; MCH 36.3 pg (25.0-35.0); MCHC 33.7 g/dL (31.0-37.0); Macrocytosis Marked; Mean Platelet Volume 9.5; Platelet Count 100 k/uL (150-450); Poikilocytosis Slight; RBC 1.94 m/uL (4.30-5.90)
[2021-02-11 08:01] LABS: MCV 107.7 fL (80.0-100.0)
[2021-02-11] MEDS: ALBUTEROL HFA INHALER INHALATION PRN ×2 (08:39→12:06)
[2021-02-11] MEDS ORDERED: amLODIPine 10 MG TAB PO SCH (09:00)
[2021-02-11] MEDS ORDERED: lisinopriL 20 MG TAB PO SCH (09:00)
[2021-02-11] MEDS ORDERED: FUROSEMIDE 40 MG TAB PO SCH (09:00)
[2021-02-11] MEDS: POTASSIUM CHLORIDE ER 10 MEQ TAB.ER.PRT PO SCH ×2 (09:54→19:57)
[2021-02-11] MEDS: FERROUS SULFATE 325 MG TAB PO SCH ×2 (09:54→19:57)
[2021-02-11] MEDS: HYDROcodone/APAP 10-325MG 1 EACH TAB PO PRN ×2 (10:03→16:03)
[2021-02-11] MEDS: PANTOPRAZOLE 40 MG/10 ML VIAL IV SCH (10:12)
[2021-02-11 10:54] LABS: Magnesium 1.4 mg/dL (1.5-2.4)
--- NOTE | 2021-02-11 11:44 | P.CONS ---
History of Present Illness - Reason for Consult Consult date: 02/11/21 Anemia Requesting physician: Jenn King - Chief Complaint weakness, fatigue - History of Present Illness This a 65-year-old white male patient who presented to the emergency department with complaints of weakness and low hemoglobin done at his PCP office and was ca lled to come to the emergency department for further evaluation. He has a past medical history including atrial fibrillation not on anticoagulation, heart failure, hypertension, alcohol dependence and thyroid disorder. Was noted to have a hemoglobin of 6.8 on admission and was given 2 units of PRBC transfusion. gastroenterology was consulted due to anemia. Patient has history of multipleB endoscopic evaluations. He's been admitted several times for anemia and GI bleed. On 08/15/2020 he underwent an EGD and colonoscopy by Dr. Corbettwith findings of antral gastritis and polypectomy. 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 On 10/18/2020 he underwent a push enteroscopy by Dr. Power no wheezing 5 nonbleeding AVMs in the distal duodenum and proximal jejunum treated with argon plasma coagulation therapy. The patient denies any abdominal pain, nausea, or vomiting. Denies any hematemesis. States he has dark stool but he is on oral iron, does not report any blood in his stool. He's been having diarrhea for the last 1 month's duration to loose stools a day. Patient has a significant history of EtOH abuse since the age of [age] years old. Up to last year he was drinking 12-14 beers a day. Over the last year he states he's been cut down to 6-8 beers a week sometimes more. Patient states he has multiple issues going on with his heart and states he is scheduled for a cardiac catheterization on Tuesday as well as having leaky heart bowels with increased pressures. he denies any previous knowledge of liver disease, no previous paracentesis.abdominal ultrasound shows moderate ascites in the right abdomen. Patient states he is supposed to be taking Lasix 40 mg daily but he's been having diarrhea. Sharp patient is being compliant.Patient has also been seen in the past by hematology for pancytopenia. Patient was supposed to follow-up with hematology for outpatient iron infusions, however states his PCP has been managing with oral iron. Today's labs with WBC 1.0 hemoglobin 7.0 hematocrit 20.8 MCV 107 MCH 36, platelet count 100,000 INR 1.2. Total bilirubin 3.1 AST 28 ALT 15 alkaline phosphatase 227. Patient stool negative for occult blood. Review of Systems REVIEW OF SYSTEMS: CARDIOPULMONARY: No chest pain or shortness of breath. bilateral lower extremity edema, +1 pitting Gastrointestinal: no abdominal pain or cramping. Denies any abdominal bloating.. No nausea or vomiting. No hematemesis, coffee-ground emesis. No rectal bleeding, or melena. GENITOURINARY: No dysuria or hematuria. MUSCULOSKELETAL: Reports normal range of motion., Joint pain. SKIN: No rashes. No jaundice. ENDOCRINE: No chills, fevers. No excessive weight gain or loss. No polydipsia or polyuria. PSYCHIATRIC: Unremarkable. NEUROLOGY: No change in mental status. Denies dizziness, headache. ENT: Vision unremarkable. CONSTITUTIONAL: No recent weight loss. No fever, chills, night sweats. Increased fatigue and weakness. Past Medical History Past Medical History: Atrial Fibrillation, Heart Failure, Hypertension, Osteoarthritis (OA), Thyroid Disorder Additional Past Medical History / Comment(s): having dk colored stools, anemia,received 1rst dose of Moderna vaccine,Had upper respiratory infection May 2020 tx with antibiotics, had negative covid test, chronic pain low back, spinal stenosis, past Dimas's palsy. History of Any Multi-Drug Resistant Organisms: None Reported Past Surgical History: Hernia Repair Additional Past Surgical History / Comment(s): CARROLL,Abdominal hernia repair, R thigh fatty tumor removed, colonoscopies, epidural injections low back. Patient had two molars removed about 5 weeks ago. Past Anesthesia/Blood Transfusion Reactions: No Reported Reaction Past Psychological History: Anxiety Additional Psychological History / Comment(s): . Smoking Status: Former smoker Past Alcohol Use History: Occasional Additional Past Alcohol Use History / Comment(s): states started smoking age 19, states he's quit Past Drug Use History: None Reported Additional Drug Use History / Comment(s): . - Past Family History Father Family Medical History: Hypertension Additional Family Medical History / Comment(s): heart valve replacements. Medications and Allergies Home Medications Medication Instructions Recorded Confirmed Type HYDROcodone/APAP 10-325MG [Ruby 1 tab PO QID PRN 07/05/17 02/10/21 History 10-325] Potassium Chloride [Potassium 10 meq PO BID 06/06/20 02/10/21 History Chloride ER] Furosemide [Lasix] 40 mg PO DAILY 08/12/20 02/10/21 History lisinopriL [Zestril] 40 mg PO DAILY 08/12/20 02/10/21 History Levothyroxine Sodium [Synthroid] 100 mcg PO DAILY 10/14/20 02/10/21 History Omeprazole 40 mg PO DAILY 10/14/20 02/10/21 History Ferrous Sulfate [Feosol] 325 mg PO BID #60 tab 10/18/20 02/10/21 Rx Albuterol Inhaler [Ventolin Hfa 2 puff INHALATION RT-QID PRN 02/10/21 02/10/21 History Inhaler] Nadolol [Corgard] 40 mg PO DAILY 02/10/21 02/10/21 History QUEtiapine [SEROquel] 50 - 100 mg PO HS 02/10/21 02/10/21 History amLODIPine [Norvasc] 10 mg PO DAILY 02/10/21 02/10/21 History Allergies Allergy/AdvReac Type Severity Reaction Status Date / Time cholesterol meds AdvReac See Uncoded 02/10/21 12:46 comments Physical Exam Vitals: Vital Signs Temp Pulse Pulse Resp BP BP Pulse Ox 02/11/21 05:40 98.2 F 63 16 106/72 98 02/10/21 20:00 97.5 F L 66 16 107/71 98 02/10/21 18:28 97.8 F 79 18 103/79 02/10/21 16:54 97.8 F 67 18 98/77 98 02/10/21 16:24 97.6 F 78 18 92/66 100 02/10/21 16:14 97.6 F 77 16 106/90 02/10/21 15:44 97.8 F 75 18 96/60 99 02/10/21 13:52 97.8 F 72 18 92/60 99 02/10/21 13:22 97.6 F 74 20 96/75 98 02/10/21 13:12 97.7 F 96 20 94/71 02/10/21 11:08 76 93 L 02/10/21 10:33 97.5 F L 16 111/62 Intake and Output 02/10/21 02/11/21 02/11/21 22:59 06:59 14:59 Intake Total 620 825 Output Total 0 Balance 620 825 Intake: Intake, IV Titration 825 Amount Sodium Chloride 0.9% 1, 825 000 ml @ 75 mls/hr IV . [id number] STA Rx#:[id number] Blood Product 620 Rc As-1 Unit 310 [id number] Rc As-1 Unit 310 [id number] Output: Stool 0 Other: Voiding Method Toilet # Emeses 0 General appearance: The patient is alert, oriented, appears in no acute distress. HET: Head is normocephalic and atraumatic. Conjunctiva pink. Sclera anicteric. Neck: Supple without lymphadenopathy. Trachea midline. Heart: S1 S2. Regular rate and rhythm. Lungs: Clear to auscultation. Abdomen: Soft, nontender nondistended with bowel sounds. No guarding or rigidity. Skin: No rashes. No jaundice. Extremities: Normal skin color and turgor. Bilateral lower extremity edema. Neurological: No focal deficits. Alert and oriented x3. Results CBC & Chem 7: 02/11/21 06:34 02/10/21 10:54 Labs: Abnormal Lab Results - Last 24 Hours (Table) 02/10/21 02/10/21 02/10/21 Range/Units 10:54 10:54 10:54 WBC 1.5 L (3.8-10.6) k/uL RBC 1.76 L (4.30-5.90) m/uL Hgb 6.8 L* (13.0-17.5) gm/dL Hct 20.0 L (39.0-53.0) % MCV 113.3 H (80.0-100.0) fL MCH 38.7 H (25.0-35.0) pg RDW 16.3 H (11.5-15.5) % Plt Count 139 L (150-450) k/uL Neutrophils # (Manual) 0.50 L (1.3-7.7) k/uL Lymphocytes # (Manual) 0.56 L (1.0-4.8) k/uL Metamyelocytes # (Man) 0.03 H (0) k/uL Myelocytes # (Manual) 0.06 H (0) k/uL Macrocytosis Marked A PT 12.2 H (9.0-12.0) sec INR 1.2 H (<1.2) Sodium 129 L (137-145) mmol/L Carbon Dioxide 19 L (22-30) mmol/L Glucose 114 H (74-99) mg/dL Magnesium 0.8 L* (1.6-2.3) mg/dL Total Bilirubin 3.1 H (0.2-1.3) mg/dL Alkaline Phosphatase 227 H (38-126) U/L Total Protein 5.9 L (6.3-8.2) g/dL Albumin 3.4 L (3.5-5.0) g/dL Urine Protein (Negative) Crossmatch 02/10/21 02/10/21 02/11/21 Range/Units 10:54 13:10 06:34 WBC 1.0 L* (3.8-10.6) k/uL RBC 1.94 L (4.30-5.90) m/uL Hgb 7.0 L (13.0-17.5) gm/dL Hct 20.8 L (39.0-53.0) % MCV 107.7 H D (80.0-100.0) fL MCH 36.3 H (25.0-35.0) pg RDW 20.0 H (11.5-15.5) % Plt Count 100 L (150-450) k/uL Neutrophils # (Manual) (1.3-7.7) k/uL Lymphocytes # (Manual) (1.0-4.8) k/uL Metamyelocytes # (Man) (0) k/uL Myelocytes # (Manual) (0) k/uL Macrocytosis Marked A PT (9.0-12.0) sec INR (<1.2) Sodium (137-145) mmol/L Carbon Dioxide (22-30) mmol/L Glucose (74-99) mg/dL Magnesium (1.6-2.3) mg/dL Total Bilirubin (0.2-1.3) mg/dL Alkaline Phosphatase (38-126) U/L Total Protein (6.3-8.2) g/dL Albumin (3.5-5.0) g/dL Urine Protein Trace H (Negative) Crossmatch See Detail US - abdomen: report reviewed (moderate amount of ascites right abdomen) Assessment and Plan (1) Symptomatic anemia Narrative/Plan: 65-year-old male with history of chronic anemia along with history of Acute GI blood loss anemia. Full comorbidities including history of atrial fibrillation and coronary artery disease. However patient has not been on anticoagulation currently. Has a history of GI bleed and underwent EGD and colonoscopy in August of this year by Dr. Lovell with findings of antral gastritis and polypectomy. 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 Power showing nonbleeding AVMs in the distal duodenum and proximal jejunum treated with argon plasma coagulation therapy. Patient had been feeling weak and fatigued had blood work done at his PCPs office was called and told to come to the emergency department for low hemoglobin. Patient has a significant history of alcohol abuse JERRY of 15 years old for which she states over the last year he has cut down but still drinks weekly. He denies any previous history of liver disease however he has been admitted with pancytopenia in the past and has seen hematology for which he was supposed to have follow-up IV iron infusions and further workup. Patient states he has not been following with hematology and his PCP has been managing his iron with oral iron. The patient denies any signs or symptoms of GI blood loss. He does state he has been having loose stools over the last months duration up to 2 times a day. He denies any blood in his stool. He had a occult stool which was negative. On admission he had a hemoglobin of 6.8, he was given 2 units of PRBC transfusion with a repeat hemoglobin today of 7.0.his labs are consistent with pancytopenia, with a macrocytic anemia. Likely all related to underlying liver disease from alcoholic cirrhosis of the liver. Current Visit: No Status: Acute Code(s): D64.9 - ANEMIA, UNSPECIFIED SNOMED Code(s): 425193970 (2) Liver cirrhosis, alcoholic Current Visit: No Status: Acute Code(s): K70.30 - ALCOHOLIC CIRRHOSIS OF LIVER WITHOUT ASCITES SNOMED Code(s): 105734742 (3) Alcohol abuse Current Visit: No Status: Acute Code(s): F10.10 - ALCOHOL ABUSE, UNCOMPLICATED SNOMED Code(s): 17015786 (4) Pancytopenia Narrative/Plan: Pancytopenia likely related to underlying liver disease and alcoholic cirrhosis of the liver. Current Visit: No Status: Acute Code(s): D61.818 - OTHER PANCYTOPENIA SNOMED Code(s): 203328019 (5) Atrial fibrillation Current Visit: No Status: Acute Code(s): I48.91 - UNSPECIFIED ATRIAL FIBRILLATION SNOMED Code(s): 14012823 Plan: 1. Continue symptomatic and supportive care 2. Obtain iron studies pre-transfusion 3. Repeat daily CBC transfuse her hemoglobin less than 7 4. Consult hematology for pancytopenia 5. Consult cardiology for underlying coronary artery disease, clearance if patient requires endoscopy 6. Alcohol abstinence 7. No plans at this time for endoscopic evaluation, patient has recently had EGD/colonoscopy 08/29, small bowel capsule endoscopy 10/29 as well as push enteroscopy 10/29 showing nonbleeding AVMs 8. Recommend continuing Lasix 40 mg daily Thank you for this consultation, we will continue to follow Dr. Anderson Power I agree with the dictator's note, documented as a scribe by Niki Daivs.
[2021-02-11 12:04] LABS: Neutrophils % (M) 39 %
[2021-02-11 12:07] LABS: Basophils # (M) 0.01 k/uL (0-0.2); Eosinophils # (M) 0.04 k/uL (0-0.7); Lymphocytes # (M) 0.44 k/uL (1.0-4.8); Metamyelocytes # (M) 0.01 k/uL (0); Metamyelocytes % 1 %; Monocytes # (M) 0.13 k/uL (0-1.0); Myelocytes # (M) 0.01 k/uL (0); Myelocytes % 1 %; Neutrophils # (M) 0.39 k/uL (1.3-7.7); Nucleated Red Blood Cells 0 /100 WBC (0-0); Total Cells Counted 200
--- NOTE | 2021-02-11 14:28 | P.CRDCN ---
History of Present Illness History of present illness: HISTORY OF PRESENTING ILLNESS This is a pleasant 65-year-old male past medical history significant for pancytopenia, hypertension, chronic Alcohol use since age of 15, chronic tobacco abuse, anemia, GI bleed, paroxysmal atrial fibrillation (was on Eliquis but discontinued due to GI bleed), moderate to severe mitral regurgitation (CARROLL completed in 06/2020), diastolic heart failure, pulmonary hypertension. He follows in the office with Dr. Daigle. We have been asked to see in consultat [facility] for "known to patient, and cardiac catheterization scheduled this week". Patient presented to the emergency department with worsening weakness, tiredness, and decreased strength. He denies any chest pain, shortness of breath, lightheadedness, dizziness, palpitations. He denies any symptoms of o rthopnea or PND. He currently is still drinking alcohol about 3-4 beers/day. On admission, he was found to have a hemoglobin of 6.8, given 2 units of PRBCs. He denies any blood in his stool. Patient admitted multiple times for GI bleed/anemia. In 08/2020 he underwent an EGD and colonoscopy by Dr. Corbett findings of antral gastritis and polypectomy. 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 Also in 10/2020 he underwent a push enteroscopy by Dr. Power 5 nonbleeding AVMs in the distal duodenum and proximal jejunum treated with argon plasma coagulation therapy. Repeat echo in the office on 01/30/2021 revealed EF of 55%, moderate mitral regurgitation, torrential tricuspid regurgitation, with severely elevated RVSP of 102. Due to concern for worsening pulmonary hypertension, Dr. Daigle sche duled for patient to undergo right heart catheterization as well as left heart catheterization scheduled on 02/13. DIAGNOSTICS EKG reveals atrial fibrillation, heart rate 78 T wave inversion in leads II, III, aVF, V4-V6. ST depression in leads V4-V6. CARROLL 06/2020- EF 55%, There is a central regurgitant jet with vena contracta of 0.6cm and PISA radius of 0.9-1.0 at [place] of 42 consistent with moderate to severe mitral regurgitation, moderate to severe tricuspid regurgitation. RVSP of 51 with an assumed RAP of 15mmHg. Chest xray mild cardiomegaly. No acute pulmonary process. Laboratory reviewed, WBC 1.0, hemoglobin 7.0, platelets 100, sodium 129, INR 1.2, potassium 4.0, BUN 14, serum creatinine 0.9, magnesium 0.8, total bili 3.1, stool occult blood negative, covid-19 PCR negative. Current home cardiac medications include lisinopril 40mg daily, amlodipine 10mg daily, nadolol 40mg daily, Lasix 40mg daily. REVIEW OF SYSTEMS At the time of my exam: CONSTITUTIONAL: +Generalized weakness +tiredness Denies fever or chills. CARDIOVASCULAR: Denies chest pain, shortness of breath, orthopnea, PND or palpitations. RESPIRATORY: Denies cough. GASTROINTESTINAL: Denies abdominal pain, diarrhea, constipation, nausea or vomiting. MUSCULOSKELETAL: Denies myalgias. NEUROLOGIC: Denies numbness, tingling, headacbe or weakness. ENDOCRINE: Denies fatigue, weight change, polydipsia or polyurina. GENITOURINARY: Denies burning, hematuria or urgency with micturation. HEMATOLOGIC: Denies history of anemia or bleeding. PHYSICAL EXAMINATION Blood pressure 101/69, heart rate 91, afebrile maintaining oxygen saturations 100% on room air CONSTITUTIONAL: No apparent distress. Obese HEENT: Head is normocephalic. Pupils are equal, round. Sclerae yellow. Mucous membranes of the mouth are moist. No JVD. No carotid bruit. CHEST EXAMINATION: Lungs are clear to auscultation. No chest wall tenderness is noted on palpation or with deep breathing. HEART EXAMINATION: Irregular rate and rhythm. S1, S2 heard. Systolic ejection murmur ABDOMEN: Soft, nontender. Positive bowel sounds. EXTREMITIES: 2+ peripheral pulses, bilateral moderate lower extremity edema and no calf tenderness. SKIN: Jaundice, pale NEUROLOGIC EXAMINATION: Patient is awake, alert and oriented x3. ASSESSMENT Pancytopenia Anemia s/p 2 units of PRBC Chronic alcohol abuse Liver Cirrhosis Moderate to severe mitral regurgitation Pulmonary Hypertension Severe Tricuspid regurgitation, with severely elevated RVSP of 102 Hyperlipidemia Paroxysmal atrial fibrillation, not on anticoagulation due to GI bleed Tobacco abuse Chronic diastolic heart failure Hyponatremia Hypomagnesemia PLAN -We will hold off on cardiac catheterization at this time due to anemia -Hematology/Oncology consulted -GI consulted, no plans for endoscopic evaluation at this time -Patient's lisinopril and amlodipine on hold due to hypotension -Alcohol and tobacco cessation discussed and highly recommended with patient -Further recommendations based on clinical course Nurse Practitioner note has been reviewed, I agree with a documented findings and plan of care. Patient was seen and examined. Past Medical History Past Medical History: Atrial Fibrillation, Heart Failure, Hypertension, Osteoarthritis (OA), Thyroid Disorder Additional Past Medical History / Comment(s): having dk colored stools, anemia,received 1rst dose of Moderna vaccine,Had upper respiratory infection May 2020 tx with antibiotics, had negative covid test, chronic pain low back, spinal stenosis, past Dimas's palsy. History of Any Multi-Drug Resistant Organisms: None Reported Past Surgical History: Hernia Repair Additional Past Surgical History / Comment(s): CARROLL,Abdominal hernia repair, R thigh fatty tumor removed, colonoscopies, epidural injections low back. Patient had two molars removed about 5 weeks ago. Past Anesthesia/Blood Transfusion Reactions: No Reported Reaction Past Psychological History: Anxiety Additional Psychological History / Comment(s): . Smoking Status: Former smoker Past Alcohol Use History: Occasional Additional Past Alcohol Use History / Comment(s): states started smoking age 19, states he's quit Past Drug Use History: None Reported Additional Drug Use History / Comment(s): . - Past Family History Father Family Medical History: Hypertension Additional Family Medical History / Comment(s): heart valve replacements. Medications and Allergies Home Medications Medication Instructions Recorded Confirmed Type HYDROcodone/APAP 10-325MG [Conrad 1 tab PO QID PRN 07/05/17 02/10/21 History 10-325] Potassium Chloride [Potassium 10 meq PO BID 06/06/20 02/10/21 History Chloride ER] Furosemide [Lasix] 40 mg PO DAILY 08/12/20 02/10/21 History lisinopriL [Zestril] 40 mg PO DAILY 08/12/20 02/10/21 History Levothyroxine Sodium [Synthroid] 100 mcg PO DAILY 10/14/20 02/10/21 History Omeprazole 40 mg PO DAILY 10/14/20 02/10/21 History Ferrous Sulfate [Feosol] 325 mg PO BID #60 tab 10/18/20 02/10/21 Rx Albuterol Inhaler [Ventolin Hfa 2 puff INHALATION RT-QID PRN 02/10/21 02/10/21 History Inhaler] Nadolol [Corgard] 40 mg PO DAILY 02/10/21 02/10/21 History QUEtiapine [SEROquel] 50 - 100 mg PO HS 02/10/21 02/10/21 History amLODIPine [Norvasc] 10 mg PO DAILY 02/10/21 02/10/21 History Allergies Allergy/AdvReac Type Severity Reaction Status Date / Time cholesterol meds AdvReac See Uncoded 02/10/21 12:46 comments Physical Exam Vitals: Vital Signs Temp Pulse Pulse Resp BP BP Pulse Ox 02/11/21 05:40 98.2 F 63 16 106/72 98 02/10/21 20:00 97.5 F L 66 16 107/71 98 02/10/21 18:28 97.8 F 79 18 103/79 02/10/21 16:54 97.8 F 67 18 98/77 98 02/10/21 16:24 97.6 F 78 18 92/66 100 02/10/21 16:14 97.6 F 77 16 106/90 02/10/21 15:44 97.8 F 75 18 96/60 99 02/10/21 13:52 97.8 F 72 18 92/60 99 02/10/21 13:22 97.6 F 74 20 96/75 98 02/10/21 13:12 97.7 F 96 20 94/71 Intake and Output 02/10/21 02/11/21 02/11/21 22:59 06:59 14:59 Intake Total 620 825 Output Total 0 Balance 620 825 Intake: Intake, IV Titration 825 Amount Sodium Chloride 0.9% 1, 825 000 ml @ 75 mls/hr IV . [id number] STA Rx#:[id number] Blood Product 620 Rc As-1 Unit 310 [id number] Rc As-1 Unit 310 [id number] Output: Stool 0 Other: Voiding Method Toilet # Emeses 0 Results 02/11/21 06:34 02/10/21 10:54 Cardiac Enzymes 02/10/21 Range/Units 10:54 AST 28 (17-59) U/L CBC 02/11/21 Range/Units 06:34 WBC 1.0 L* (3.8-10.6) k/uL RBC 1.94 L (4.30-5.90) m/uL Hgb 7.0 L (13.0-17.5) gm/dL Hct 20.8 L (39.0-53.0) % Plt Count 100 L (150-450) k/uL Comprehensive Metabolic Panel 02/10/21 Range/Units 10:54 Sodium 129 L (137-145) mmol/L Potassium 4.0 (3.5-5.1) mmol/L Chloride 100 (98-107) mmol/L Carbon Dioxide 19 L (22-30) mmol/L BUN 14 (9-20) mg/dL Creatinine 0.93 (0.66-1.25) mg/dL Glucose 114 H (74-99) mg/dL Calcium 8.4 (8.4-10.2) mg/dL AST 28 (17-59) U/L ALT 15 (4-49) U/L Alkaline Phosphatase 227 H (38-126) U/L Total Protein 5.9 L (6.3-8.2) g/dL Albumin 3.4 L (3.5-5.0) g/dL Current Medications Generic Name Dose Route Start Last Admin Trade Name Freq PRN Reason Stop Dose Admin Hydrocodone Bitart/Acetaminophen 1 each 02/10/21 12:53 02/11/21 10:03 Hydrocodone/Apap 10-325mg 1 Each Tab PO 1 each QID PRN Administration Pain Albuterol Sulfate 2 puff 02/10/21 12:53 02/11/21 08:39 Albuterol Hfa Inhaler INHALATION 2 puff RT-QID PRN Administration Shortness Of Breath Ferrous Sulfate 325 mg 02/10/21 21:00 02/11/21 09:54 Ferrous Sulfate 325 Mg Tab PO 325 mg BID JERRY Administration Levothyroxine Sodium 100 mcg 02/11/21 06:30 02/11/21 05:53 Levothyroxine 100 Mcg Tab PO 100 mcg DAILY@0630 JERRY Administration Naloxone HCl 0.2 mg 02/10/21 12:52 Naloxone 0.4 Mg/Ml 1 Ml Vial IV Q2M PRN Opioid Reversal Pantoprazole Sodium 40 mg 02/11/21 09:00 02/11/21 10:12 Pantoprazole 40 Mg/10 Ml Vial IV 40 mg DAILY JERRY Administration Potassium Chloride 10 meq 02/10/21 21:00 02/11/21 09:54 Potassium Chloride Er 10 Meq Tab.Er.Prt PO 10 meq BID JERRY Administration Quetiapine Fumarate 50 mg 02/10/21 21:00 02/10/21 20:39 Quetiapine 50 Mg Tab PO 50 mg HS JERRY Administration Intake and Output 02/10/21 02/11/21 02/11/21 22:59 06:59 14:59 Intake Total 620 825 Output Total 0 Balance 620 825 Intake: Intake, IV Titration 825 Amount Sodium Chloride 0.9% 1, 825 000 ml @ 75 mls/hr IV . [id number] STA Rx#:[id number] Blood Product 620 Rc As-1 Unit 310 [id number] Rc As-1 Unit 310 [id number] Output: Stool 0 Other: Voiding Method Toilet # Emeses 0 02/11/21 06:34 02/10/21 10:54
[2021-02-11] MEDS ORDERED: Magnesium Replacement Protocol 1 EACH MISC MISCELLANE PRN (14:45)
--- NOTE | 2021-02-11 14:54 | P.PN ---
Subjective Progress Note Date: 02/11/21 This is a pleasant 65-year-old male was recently hospitalized for acute GI bleed found to have arterial venous malformations and at that time patient underwent upper GI endoscopy colonoscopy push enteroscopy as well as capsule endoscopy, patient does have history of atrial fibrillation as an anti-correlation which was held and patient was discharged at that time. Patient is presently not on any anticoagulation or antiplatelet therapy with came in with very low hemoglobin generalized tiredness and weakness and found to have hemoglobin of 6.8 because of which patient was sent to the hospital. Patient does have pancytopenia directed have history of alcohol abuse and believed to have bone marrow suppression. Patient does have distention of the abdomen and may have ascites supposed to get an outpatient ultrasound today. Patient also has very low magnesium of 0.8. Patient is also hyponatremic his medications are not verified appears to be on Lasix for cirrhosis and volume overload secondary to that. Patient had normal ejection fraction the past patient is supposed to get cardiac catheterization as an outpatient this Tuesday. She does admit to having diarrhea and multiple or Doxil stress today and one episode of Doxil today. Gastric body will be consulted. 02/11/2021 Patient evaluated today resting in bed. He does report some diarrhea, he denies any blood in the stool. His hemoglobin today 7 status post 2 units of PRBC. Additional labs included white count of 1, RBC 1.94, platelet count of 100. Neutrophils are elevated at 0.39. Labs today show a magnesium of 1.4. Patient does report drinking a couple beers a day for many years. GI services consulted hematology for the pancytopenia. Cardiology consultation. Patient was planned for a right and left cardiac catheterization on Tuesday due to severely elevated RVSP of 102 found on echocardiogram. ROS Constitutional: Denied any fatigue denied any fever. Cardio vascular: denied any chest pain, palpitations Gastrointestinal denied any nausea vomiting, reports loose stool, denies blood in the stool Pulmonary: Denied any shortness of breath cough Neurologic denied any new focal deficits All inpatient medications were reviewed and appropriate changes in these medications as dictated in the interval history and assessment and plan. PHYSICAL EXAMINATION: GENERAL: The patient is alert and oriented x3, not in any acute distress. Well developed, well nourished. HEENT: Pupils are round and equally reacting to light. EOMI. No scleral icterus. Does have conjunctival pallor . Normocephalic, atraumatic. No pharyngeal erythema. No thyromegaly. CARDIOVASCULAR: S1 and S2 present. No murmurs, rubs, or gallops. PULMONARY: Chest is clear to auscultation, no wheezing or crackles. ABDOMEN: Soft, nontender, distended with fluid shift normoactive bowel sounds. No palpable organomegaly. MUSCULOSKELETAL: No joint swelling or deformity. EXTREMITIES: No cyanosis, clubbing, bilateral lower extremity edema NEUROLOGICAL : Gross neurological examination did not reveal any focal deficits. SKIN: No rashes. Assessment and plan -Anemia secondary to possible acute upper GI bleed from an AV malformation, status post 2 units PRBC, hemoglobin 7 -Hyponatremia appears to be hypervolemic hyponatremia from cirrhosis, on oral Lasix -Paroxysmal atrial fibrillation, not on anticoagulation due to anemia -Hypomagnesemia: Improving, replaced today for protocol recheck tomorrow, patient is currently drinking -Nicotine use: Counseling was provided -Pulmonary hypertension -Moderate to severe mitral regurgitation -Chronic diastolic congestive heart failure current EF is 55%, not in acute exacerbation -Chronic alcohol abuse -Volume overload secondary to cirrhosis -Hypertension -Hypothyroidism DVT prophylaxis: No pharmacological anticoagulation because of GI bleed Cardiology will hold off on catheterization for now. Repeat labs in the morning. Replace electrolytes per protocol. Objective - Vital Signs Vital signs: Vital Signs Temp 98.0 F 02/11/21 12:46 Pulse 91 02/11/21 12:46 Resp 17 02/11/21 12:46 BP 101/69 02/11/21 12:46 Pulse Ox 100 02/11/21 12:46 Intake & Output 02/10/21 02/11/21 02/11/21 18:59 06:59 18:59 Intake Total 620 825 Output Total 0 Balance 620 825 Weight 115.666 kg Intake: Intake, IV Titration 825 Amount Sodium Chloride 0.9% 1, 825 000 ml @ 75 mls/hr IV . [id number] STA Rx#:[id number] Blood Product 620 Rc As-1 Unit 310 [id number] Rc As-1 Unit 310 [id number] Output: Stool 0 Other: Voiding Method Toilet # Emeses 0 - Labs CBC & Chem 7: 02/11/21 06:34 02/10/21 10:54 Labs: Abnormal Lab Results - Last 24 Hours (Table) 02/10/21 02/11/21 02/11/21 Range/Units 10:54 06:34 06:34 WBC 1.0 L* (3.8-10.6) k/uL RBC 1.94 L (4.30-5.90) m/uL Hgb 7.0 L (13.0-17.5) gm/dL Hct 20.8 L (39.0-53.0) % MCV 107.7 H D (80.0-100.0) fL MCH 36.3 H (25.0-35.0) pg RDW 20.0 H (11.5-15.5) % Plt Count 100 L (150-450) k/uL Neutrophils # (Manual) 0.39 L* (1.3-7.7) k/uL Lymphocytes # (Manual) 0.44 L (1.0-4.8) k/uL Metamyelocytes # (Man) 0.01 H (0) k/uL Myelocytes # (Manual) 0.01 H (0) k/uL Macrocytosis Marked A Magnesium 1.4 L (1.5-2.4) mg/dL Crossmatch See Detail
[2021-02-11 15:03] LABS: African American GFR (CKD) 100.6 (60.0-200.0); Anion Gap 13.3 mmol/L (4.00-12.00); BUN/Creat Ratio 13.65 Ratio (12.00-20.00); Blood Urea Nitrogen 12.5 mg/dL (9.0-27.0); Calcium 8.1 mg/dL (8.7-10.3); Carbon Dioxide 17.3 mmol/L (21.6-31.8); Non-African American GFR(CKD) 86.8 (60.0-200.0); Potassium 3.8 mmol/L (3.5-5.5)
[2021-02-11] MEDS: FUROSEMIDE 40 MG TAB PO SCH (16:04)
[2021-02-11] MEDS: MAGNESIUM SULFATE-D5W PMX 1 GM in DEXTROSE/WATER 1 100ML.BAG IVPB SCH ×3 (16:04→18:56)
[2021-02-11 19:11] LABS: % Iron Saturation 38.03 (15.00-50.00)
[2021-02-11] MEDS: QUEtiapine 50 MG TAB PO SCH (19:57)
[2021-02-12] MEDS: LEVOTHYROXINE 100 MCG TAB PO SCH (05:20)
[2021-02-12 06:13] LABS: Anisocytosis Moderate; MCH 36.4 pg (25.0-35.0); MCHC 34.7 g/dL (31.0-37.0); MCV 105.1 fL (80.0-100.0); Macrocytosis Marked; Mean Platelet Volume 9.1; Poikilocytosis Slight; RBC 1.78 m/uL (4.30-5.90); RDW 20.5 % (11.5-15.5)
[2021-02-12 06:28] LABS: HCT 18.7 % (39.0-53.0); HGB 6.5 gm/dL (13.0-17.5)
[2021-02-12 06:55] LABS: Reticulocyte % 3.5 % (0.5-2.0)
[2021-02-12] MEDS: ALBUTEROL HFA INHALER INHALATION PRN ×3 (08:13→15:29)
[2021-02-12] MEDS: FUROSEMIDE 40 MG TAB PO SCH (08:44)
[2021-02-12] MEDS: POTASSIUM CHLORIDE ER 10 MEQ TAB.ER.PRT PO SCH ×2 (08:44→20:57)
[2021-02-12] MEDS: FERROUS SULFATE 325 MG TAB PO SCH ×2 (08:44→20:57)
[2021-02-12] MEDS: PANTOPRAZOLE 40 MG/10 ML VIAL IV SCH (09:19)
[2021-02-12] MEDS: HYDROcodone/APAP 10-325MG 1 EACH TAB PO PRN ×2 (09:21→17:21)
--- NOTE | 2021-02-12 10:08 | P.PN ---
Subjective This is a pleasant 65-year-old male past medical history significant for pancytopenia, hypertension, chronic Alcohol use since age of 15, chronic tobacco abuse, anemia, GI bleed, paroxysmal atrial fibrillation (was on Eliquis but discontinued due to GI bleed), moderate to severe mitral regurgitation ([facility]ARROLL completed in 06/2020), diastolic heart failure, pulmonary hypertension. He follows in the office with Dr. Daigle. We have been asked to see in consultation for "known to patient, and cardiac catheterization scheduled this week". Patient presented to the emergency department with worsening weakness, tiredness, and decreased strength. He denies any chest pain, shortness of breath, lightheadedness, dizziness, palpitations. He denies any symptoms of orthopnea or PND. He currently is still drinking alcohol about 3-4 beers/day. On admission, he was found to have a hemoglobin of 6.8, given 2 units of PRBCs. He denies any blood in his stool. Patient admitted multiple times for GI bleed/anemia. In 08/2020 he underwent an EGD and colonoscopy by Dr. Corbett findings of antral gastritis and polypectomy. 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 Also in 10/2020 he underwent a push enteroscopy by Dr. Power 5 nonbleeding AVMs in the distal duodenum and proximal jejunum treated with argon plasma coagulation therapy. Repeat echo in the office on 01/30/2021 revealed EF of 55%, moderate mitral regurgitation, torrential tricuspid regurgitation, with severely elevated RVSP of 102. Due to concern for worsening pulmonary hypertension, Dr. Daigle scheduled for patient to undergo right heart catheterization as well as left heart catheterization scheduled on 02/13. 02/12/2021 Patient seen and examined at bedside, no acute distress. He states he continues to feel weak. He also states he feels nauseous and "sick" and relating it to possible alcohol withdrawal. Labs reviewed, WBC 1.0, hemoglobin 6.5, platelets pending, BMP pending. He's currently maintained on 07/17, Lasix PO 40mg daily, metoprolol tartrate 40 mg daily. Telemetry reviewed patient in nature fibrillation with controlled ventricular rates. PHYSICAL EXAMINATION Blood pressure 106/74, heart rate 82, afebrile oxygen saturation 99% on room air CONSTITUTIONAL: No apparent distress. Obese HEENT: Neck Supple. No JVD. CHEST EXAMINATION: Lungs are clear to auscultation. No chest wall tenderness is noted on palpation or with deep breathing. HEART EXAMINATION: Irregular rate and rhythm. S1, S2 heard. Systolic ejection murmur ABDOMEN: Soft, nontender. Positive bowel sounds. EXTREMITIES: 2+ peripheral pulses, bilateral moderate lower extremity edema and no calf tenderness. SKIN: Jaundice, pale NEUROLOGIC EXAMINATION: Patient is awake, alert and oriented x3. ASSESSMENT Pancytopenia Anemia s/p 2 units of PRBC Chronic alcohol abuse Liver Cirrhosis Moderate to severe mitral regurgitation Pulmonary Hypertension Severe Tricuspid regurgitation, with severely elevated RVSP of 102 Hyperlipidemia Paroxysmal atrial fibrillation, not on anticoagulation due to anemia Tobacco abuse Chronic diastolic heart failure Hyponatremia Hypomagnesemia PLAN -We will hold off on cardiac catheterization at this time due to anemia -Plan for 1unit of PRBC today -No anticoagulation -Monitor for symptoms of withdrawal -Hematology/Oncology consulted -GI following, no plans for endoscopic evaluation at this time -Hold lisinopril and amlodipine due to hypotension -Alcohol and tobacco cessation discussed and highly recommended with patient -Further recommendations based on clinical course Nurse Practitioner note has been reviewed, I agree with a documented findings and plan of care. Patient was seen and examined. Objective - Vital Signs Vital signs: Vital Signs Temp 97.9 F 02/12/21 08:15 Pulse 82 02/12/21 08:15 Resp 18 02/12/21 08:15 BP 106/74 02/12/21 08:15 Pulse Ox 93 L 02/12/21 08:15 Intake & Output 02/11/21 02/12/21 02/12/21 18:59 06:59 18:59 Intake Total 360 Output Total 600 Balance -240 Intake: Oral 360 Output: Urine 600 Stool 0 Other: Voiding Method Toilet Toilet - Labs CBC & Chem 7: 02/12/21 05:31 02/11/21 06:34 Labs: Abnormal Lab Results - Last 24 Hours (Table) 02/10/21 02/11/21 02/11/21 Range/Units 10:54 06:34 06:34 WBC (3.8-10.6) k/uL RBC (4.30-5.90) m/uL Hgb (13.0-17.5) gm/dL Hct (39.0-53.0) % MCV (80.0-100.0) fL MCH (25.0-35.0) pg RDW (11.5-15.5) % Neutrophils # (Manual) 0.39 L* (1.3-7.7) k/uL Lymphocytes # (Manual) 0.44 L (1.0-4.8) k/uL Metamyelocytes # (Man) 0.01 H (0) k/uL Myelocytes # (Manual) 0.01 H (0) k/uL Macrocytosis Retic Count (0.5-2.0) % Sodium 132 L (135-145) mmol/L Carbon Dioxide 17.3 L (21.6-31.8) mmol/L Anion Gap 13.30 H (4.00-12.00) mmol/L Calcium 8.1 L (8.7-10.3) mg/dL Magnesium 1.4 L (1.5-2.4) mg/dL Crossmatch See Detail 02/12/21 02/12/21 Range/Units 05:31 05:31 WBC 1.0 L* (3.8-10.6) k/uL RBC 1.78 L (4.30-5.90) m/uL Hgb 6.5 L* (13.0-17.5) gm/dL Hct 18.7 L* (39.0-53.0) % MCV 105.1 H (80.0-100.0) fL MCH 36.4 H (25.0-35.0) pg RDW 20.5 H (11.5-15.5) % Neutrophils # (Manual) (1.3-7.7) k/uL Lymphocytes # (Manual) (1.0-4.8) k/uL Metamyelocytes # (Man) (0) k/uL Myelocytes # (Manual) (0) k/uL Macrocytosis Marked A Retic Count 3.5 H (0.5-2.0) % Sodium (135-145) mmol/L Carbon Dioxide (21.6-31.8) mmol/L Anion Gap (4.00-12.00) mmol/L Calcium (8.7-10.3) mg/dL Magnesium (1.5-2.4) mg/dL Crossmatch
[2021-02-12] MEDS: NICOTINE 14MG/24HR PATCH TRANSDERM SCH (12:44)
--- NOTE | 2021-02-12 13:04 | P.PN ---
Subjective Progress Note Date: 02/12/21 This is a pleasant 65-year-old male was recently hospitalized for acute GI bleed found to have arterial venous malformations and at that time patient underwent upper GI endoscopy colonoscopy push enteroscopy as well as capsule endoscopy, patient does have history of atrial fibrillation as an anti-correlation which was held and patient was discharged at that time. Patient is presently not on any anticoagulation or antiplatelet therapy with came in with very low hemoglobin generalized tiredness and weakness and found to have hemoglobin of 6.8 because of which patient was sent to the hospital. Patient does have pancytopenia directed have history of alcohol abuse and believed to have bone marrow suppression. Patient does have distention of the abdomen and may have ascites supposed to get an outpatient ultrasound today. Patient also has very low magnesium of 0.8. Patient is also hyponatremic his medications are not verified appears to be on Lasix for cirrhosis and volume overload secondary to that. Patient had normal ejection fraction the past patient is supposed to get cardiac catheterization as an outpatient this Tuesday. She does admit to having diarrhea and multiple or Doxil stress today and one episode of Doxil today. Gastric body will be consulted. 02/11/2021 Patient evaluated today resting in bed. He does report some diarrhea, he denies any blood in the stool. His hemoglobin today 7 status post 2 units of PRBC. Additional labs included white count of 1, RBC 1.94, platelet count of 100. Neutrophils are elevated at 0.39. Labs today show a magnesium of 1.4. Patient does report drinking a couple beers a day for many years. GI services consulted hematology for the pancytopenia. Cardiology consultation. Patient was planned for a right and left cardiac catheterization on Tuesday due to severely elevated RVSP of 102 found on echocardiogram. 02/12/21 Hemoglobin today came back at 6.5 we did transfuse 1 more unit of PRBCs. Additional labs included WBC of 1, RBC 1.78, hematocrit critical 18.7, there were no platelet counts available for today. Metabolic panel still pending. Ordered a paracentesis from IR for abdominal ascites on ultrasound. Vital show a blood pressure 104/64, afebrile. Pending consultation from hematology services. Repeat labs in the morning. ROS Constitutional: Denied any fatigue denied any fever. Cardio vascular: denied any chest pain, palpitations Gastrointestinal denied any nausea vomiting, reports loose stool, denies blood in the stool Pulmonary: Denied any shortness of breath cough Neurologic denied any new focal deficits All inpatient medications were reviewed and appropriate changes in these medications as dictated in the interval history and assessment and plan. PHYSICAL EXAMINATION: GENERAL: The patient is alert and oriented x3, not in any acute distress. Well developed, well nourished. HEENT: Pupils are round and equally reacting to light. EOMI. No scleral icterus. Does have conjunctival pallor . Normocephalic, atraumatic. No pharyngeal erythema. No thyromegaly. CARDIOVASCULAR: S1 and S2 present. No murmurs, rubs, or gallops. PULMONARY: Chest is clear to auscultation, no wheezing or crackles. ABDOMEN: Soft, nontender, distended with fluid shift normoactive bowel sounds. No palpable organomegaly. MUSCULOSKELETAL: No joint swelling or deformity. EXTREMITIES: No cyanosis, clubbing, bilateral lower extremity edema NEUROLOGICAL: Gross neurological examination did not reveal any focal deficits. SKIN: No rashes. Assessment and plan -Anemia secondary to possible acute upper GI bleed from an AV malformation, hgb 6.5 - transfuse 1 u prbc today -Hyponatremia appears to be hypervolemic hyponatremia from cirrhosis, on oral Lasix -Paroxysmal atrial fibrillation, not on anticoagulation due to anemia -Hypomagnesemia: Improving, replaced today for protocol recheck tomorrow, patient is currently drinking -Nicotine use: Counseling was provided -Pulmonary hypertension -Moderate to severe mitral regurgitation -Chronic diastolic congestive heart failure current EF is 55%, not in acute exacerbation -Chronic alcohol abuse -Volume overload secondary to cirrhosis, paracentesis ordered for today -Hypertension -Hypothyroidism DVT prophylaxis: No pharmacological anticoagulation because of GI bleed Cardiology will hold off on catheterization for now. Repeat labs in the morning. Replace electrolytes per protocol. Objective - Vital Signs Vital signs: Vital Signs Temp 97.9 F 02/12/21 11:50 Pulse 98 02/12/21 11:50 Resp 18 02/12/21 11:50 BP 104/64 02/12/21 11:50 Pulse Ox 99 02/12/21 11:50 Intake & Output 02/11/21 02/12/21 02/12/21 18:59 06:59 18:59 Intake Total 360 0 Output Total 600 Balance -240 0 Intake: Oral 360 Blood Product 0 Rc As-1 Unit 0 [id number] Output: Urine 600 Stool 0 Other: Voiding Method Toilet Toilet - Labs CBC & Chem 7: 02/12/21 05:31 02/11/21 06:34 Labs: Abnormal Lab Results - Last 24 Hours (Table) 02/10/21 02/11/21 02/12/21 Range/Units 10:54 06:34 05:31 WBC 1.0 L* (3.8-10.6) k/uL RBC 1.78 L (4.30-5.90) m/uL Hgb 6.5 L* (13.0-17.5) gm/dL Hct 18.7 L* (39.0-53.0) % MCV 105.1 H (80.0-100.0) fL MCH 36.4 H (25.0-35.0) pg RDW 20.5 H (11.5-15.5) % Macrocytosis Marked A Retic Count (0.5-2.0) % Sodium 132 L (135-145) mmol/L Carbon Dioxide 17.3 L (21.6-31.8) mmol/L Anion Gap 13.30 H (4.00-12.00) mmol/L Calcium 8.1 L (8.7-10.3) mg/dL Crossmatch See Detail 02/12/21 Range/Units 05:31 WBC (3.8-10.6) k/uL RBC (4.30-5.90) m/uL Hgb (13.0-17.5) gm/dL Hct (39.0-53.0) % MCV (80.0-100.0) fL MCH (25.0-35.0) pg RDW (11.5-15.5) % Macrocytosis Retic Count 3.5 H (0.5-2.0) % Sodium (135-145) mmol/L Carbon Dioxide (21.6-31.8) mmol/L Anion Gap (4.00-12.00) mmol/L Calcium (8.7-10.3) mg/dL Crossmatch Assessment and Plan Time with Patient: Greater than 30
[2021-02-12 14:05] LABS: Neutrophils % (M) 41 %
[2021-02-12 14:06] LABS: Band Neutrophils % 1 %; Basophils # (M) 0.01 k/uL (0-0.2); Eosinophils # (M) 0.03 k/uL (0-0.7); Lymphocytes # (M) 0.41 k/uL (1.0-4.8); Monocytes # (M) 0.11 k/uL (0-1.0); Myelocytes # (M) 0.02 k/uL (0); Myelocytes % 2 %; Nucleated Red Blood Cells 0 /100 WBC (0-0); Total Cells Counted 100
[2021-02-12 14:08] LABS: Platelet Count 93 k/uL (150-450)
--- NOTE | 2021-02-12 14:42 | P.PN ---
Subjective Progress Note Date: 02/12/21 Principal diagnosis: Anemia This a 65-year-old white male patient who presented to the emergency department with complaints of weakness and low hemoglobin done at his PCP office and was called to come to the emergency department for further evaluation. He has a past medical history including atrial fibrillation not on anticoagulation, heart failure, hypertension, alcohol dependence and thyroid disorder. Was noted to have a hemoglobin of 6.8 on admission and was given 2 units of PRBC transfusion. gastroenterology was consulted due to anemia. Patient has history of multipleB endoscopic evaluations. He's been admitted several times for anemia and GI bleed. On 08/15/2020 he underwent an EGD and colonoscopy by Dr. Corbett with findings of antral gastritis and polypectomy. 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 On 10/18/2020 he underwent a push enteroscopy by Dr. Power no wheezing 5 nonbleeding AVMs in the distal duodenum and proximal jejunum treated with argon plasma coagulation therapy. The patient denies any abdominal pain, nausea, or vomiting. Denies any hematemesis. States he has dark stool but he is on oral iron, does not report any blood in his stool. Patient has a significant history of EtOH abuse since the age of [age] years old. Up to last year he was drinking 12-14 beers a day. Over the last year he states he's been cut down to 6-8 beers a week sometimes more. Today the patient is seen and examined without any complaints of abdominal pain, nausea, or vomiting. States his diarrhea has actually improved and he is having more formed stool. He denies any blood or black stool. He did have a drop in his hemoglobin to 6.5 and is currently undergoing 1 unit PRBC transfusion. That will be a total of 3 units this admission. He is also scheduled for a paracentesis today. Hematology is on consult. Objective - Vital Signs Vital signs: Vital Signs Temp 98.2 F 02/12/21 10:00 Pulse 98 02/12/21 10:00 Resp 16 02/12/21 10:00 BP 92/62 02/12/21 10:00 Pulse Ox 100 02/12/21 10:00 Intake & Output 02/11/21 02/12/21 02/12/21 18:59 06:59 18:59 Intake Total 360 0 Output Total 600 Balance -240 0 Intake: Oral 360 Blood Product 0 Rc As-1 Unit 0 [id number] Output: Urine 600 Stool 0 Other: Voiding Method Toilet Toilet - Exam General appearance: The patient is alert, oriented, appears in no acute distress. HET: Head is normocephalic and atraumatic. Conjunctiva pink. Sclera anicteric. Neck: Supple without lymphadenopathy. Abdomen: Soft, nontender, nondistended with bowel sounds. No guarding or rigidity. Extremities: Normal skin color and turgor. Bilateral lower extremity edema. Skin: No rashes, no jaundice. Pale. Neurological: No focal deficits. Alert and oriented x3 - Labs CBC & Chem 7: 02/12/21 05:31 02/11/21 06:34 Labs: Abnormal Lab Results - Last 24 Hours (Table) 02/10/21 02/11/21 02/11/21 Range/Units 10:54 06:34 06:34 WBC (3.8-10.6) k/uL RBC (4.30-5.90) m/uL Hgb (13.0-17.5) gm/dL Hct (39.0-53.0) % MCV (80.0-100.0) fL MCH (25.0-35.0) pg RDW (11.5-15.5) % Neutrophils # (Manual) 0.39 L* (1.3-7.7) k/uL Lymphocytes # (Manual) 0.44 L (1.0-4.8) k/uL Metamyelocytes # (Man) 0.01 H (0) k/uL Myelocytes # (Manual) 0.01 H (0) k/uL Macrocytosis Retic Count (0.5-2.0) % Sodium 132 L (135-145) mmol/L Carbon Dioxide 17.3 L (21.6-31.8) mmol/L Anion Gap 13.30 H (4.00-12.00) mmol/L Calcium 8.1 L (8.7-10.3) mg/dL Magnesium 1.4 L (1.5-2.4) mg/dL Crossmatch See Detail 11/04/21 11/04/21 Range/Units 05:31 05:31 WBC 1.0 L* (3.8-10.6) k/uL RBC 1.78 L (4.30-5.90) m/uL Hgb 6.5 L* (13.0-17.5) gm/dL Hct 18.7 L* (39.0-53.0) % MCV 105.1 H (80.0-100.0) fL MCH 36.4 H (25.0-35.0) pg RDW 20.5 H (11.5-15.5) % Neutrophils # (Manual) (1.3-7.7) k/uL Lymphocytes # (Manual) (1.0-4.8) k/uL Metamyelocytes # (Man) (0) k/uL Myelocytes # (Manual) (0) k/uL Macrocytosis Marked A Retic Count 3.5 H (0.5-2.0) % Sodium (135-145) mmol/L Carbon Dioxide (21.6-31.8) mmol/L Anion Gap (4.00-12.00) mmol/L Calcium (8.7-10.3) mg/dL Magnesium (1.5-2.4) mg/dL Crossmatch Assessment and Plan (1) Symptomatic anemia Narrative/Plan: 65-year-old male with history of chronic anemia along with history of Acute GI blood loss anemia. Full comorbidities including history of atrial fibrillation and coronary artery disease. However patient has not been on anticoagulation currently. Has a history of GI bleed and underwent EGD and colonoscopy in August of this year by Dr. Lovell with findings of antral gastritis and polypectomy. 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 Power showing nonbleeding AVMs in the distal duodenum and proximal jejunum treated with argon plasma coagulation therapy. Patient had been feeling weak and fatigued had blood work done at his PCPs office was called and told to come to the emergency department for low hemoglobin. Patient has a significant history of alcohol abuse JERRY of 15 years old for which she states over the last year he has cut down but still drinks weekly. He denies any previous history of liver disease however he has been admitted with pancytopenia in the past and has seen hematology for which he was supposed to have follow-up IV iron infusions and further workup. Patient states he has not been following with hematology and his PCP has been managing his iron with oral iron. The patient denies any signs or symptoms of GI blood loss. He does state he has been having loose stools over the last months duration up to 2 times a day. He denies any blood in his stool. He had a occult stool which was negative. On admission he had a hemoglobin of 6.8, he was given 2 units of PRBC transfusion with a repeat hemoglobin today of 7.0.his labs are consistent with pancytopenia, with a macrocytic anemia. Likely all related to underlying liver disease from alcoholic cirrhosis of the liver. Current Visit: No Status: Acute Code(s): D64.9 - ANEMIA, UNSPECIFIED SNOMED Code(s): 451260652 (2) Liver cirrhosis, alcoholic Narrative/Plan: Pancytopenia likely due to underlying liver disease. Patient also scheduled to undergo paracentesis with fluid studies. Current Visit: No Status: Acute Code(s): K70.30 - ALCOHOLIC CIRRHOSIS OF LIVER WITHOUT ASCITES SNOMED Code(s): 145884180 (3) Alcohol abuse Current Visit: No Status: Acute Code(s): F10.10 - ALCOHOL ABUSE, UNCOMPLICATED SNOMED Code(s): 46078124 (4) Pancytopenia Narrative/Plan: Pancytopenia likely related to underlying liver disease and alcoholic cirrhosis of the liver. Current Visit: No Status: Acute Code(s): D61.818 - OTHER PANCYTOPENIA SNOMED Code(s): 401392746 (5) Atrial fibrillation Narrative/Plan: Cardiology on consult, cardiac catheterization has been deferred. Current Visit: No Status: Acute Code(s): I48.91 - UNSPECIFIED ATRIAL FIBRILLATION SNOMED Code(s): 59741491 Plan: 1. Continue symptomatic and supportive care 2. Iron studies reviewed. 3. Repeat daily CBC transfuse her hemoglobin less than 7 4. Hematology for pancytopenia 5. Alcohol abstinence 6. Keep patient nothing by mouth after midnight if further drop in hemoglobin may need to consider EGD with push enteroscopy if cleared by cardiology 7. Recommend continuing Lasix 40 mg daily Thank you for this consultation, we will continue to follow Dr. Anderson Power I agree with the dictator's note, documented as a scribe by Niki Davis.
[2021-02-12 16:26] LABS: Folate, Serum 3.8 ng/mL (4.40-31.00); Magnesium 1.7 mg/dL (1.5-2.4)
[2021-02-12 17:41] LABS: African American GFR (CKD) 102.8 (60.0-200.0); Albumin 3.4 g/dL (3.8-4.9); Albumin/Globulin Ratio 2.13 (1.60-3.17); Anion Gap 13.5 mmol/L (4.00-12.00); BUN/Creat Ratio 11.56 Ratio (12.00-20.00); Blood Urea Nitrogen 10.4 mg/dL (9.0-27.0); Calcium 8.4 mg/dL (8.7-10.3); Carbon Dioxide 18.5 mmol/L (21.6-31.8); Globulin 1.6 g/dL (1.6-3.3); Non-African American GFR(CKD) 88.7 (60.0-200.0); Total Bilirubin 2.4 mg/dL (0.30-1.20)
--- NOTE | 2021-02-12 19:35 | P.CONS ---
History of Present Illness - Reason for Consult Consult date: 02/12/21 Pancytopenia Requesting physician: Niki Oakley - Chief Complaint Fatigue and SOB - History of Present Illness Nomi is a 65 year old patient with known ETOH cirrhosis and chronic pancytopenia likely as a result. he was seen on prior admission in October for the same. He continues to drink alcohol, he states he cut down a lot and only drinking 6-8 beers a day now. He has known contributing factors of GI blood loss anemia as well although has not followed up in office as recommended. Review of Systems All systems: negative Constitutional: Reports as per HPI Past Medical History Past Medical History: Atrial Fibrillation, Heart Failure, Hypertension, Osteoarthritis (OA), Thyroid Disorder Additional Past Medical History / Comment(s): having dk colored stools, anemia,received 1rst dose of Moderna vaccine,Had upper respiratory infection May 2020 tx with antibiotics, had negative covid test, chronic pain low back, spinal stenosis, past Dimas's palsy. History of Any Multi-Drug Resistant Organisms: None Reported Past Surgical History: Hernia Repair Additional Past Surgical History / Comment(s): CARROLL,Abdominal hernia repair, R thigh fatty tumor removed, colonoscopies, epidural injections low back. Patient had two molars removed about 5 weeks ago. Past Anesthesia/Blood Transfusion Reactions: No Reported Reaction Past Psychological History: Anxiety Additional Psychological History / Comment(s): . Smoking Status: Former smoker Past Alcohol Use History: Occasional Additional Past Alcohol Use History / Comment(s): states started smoking age 19, states he's quit Past Drug Use History: None Reported Additional Drug Use History / Comment(s): . - Past Family History Father Family Medical History: Hypertension Additional Family Medical History / Comment(s): heart valve replacements. Medications and Allergies Home Medications Medication Instructions Recorded Confirmed Type HYDROcodone/APAP 10-325MG [[place] 1 tab PO QID PRN 07/05/17 02/10/21 History 10-325] Potassium Chloride [Potassium 10 meq PO BID 06/06/20 02/10/21 History Chloride ER] Furosemide [Lasix] 40 mg PO DAILY 08/12/20 02/10/21 History lisinopriL [Zestril] 40 mg PO DAILY 08/12/20 02/10/21 History Levothyroxine Sodium [Synthroid] 100 mcg PO DAILY 10/14/20 02/10/21 History Omeprazole 40 mg PO DAILY 10/14/20 02/10/21 History Ferrous Sulfate [Feosol] 325 mg PO BID #60 tab 10/18/20 02/10/21 Rx Albuterol Inhaler [Ventolin Hfa 2 puff INHALATION RT-QID PRN 02/10/21 02/10/21 History Inhaler] Nadolol [Corgard] 40 mg PO DAILY 02/10/21 02/10/21 History QUEtiapine [SEROquel] 50 - 100 mg PO HS 02/10/21 02/10/21 History amLODIPine [Norvasc] 10 mg PO DAILY 02/10/21 02/10/21 History Allergies Allergy/AdvReac Type Severity Reaction Status Date / Time cholesterol meds AdvReac See Uncoded 02/10/21 12:46 comments Physical Exam Vitals: Vital Signs Temp Pulse Pulse Resp BP BP Pulse Ox 02/11/21 05:40 98.2 F 63 16 106/72 98 02/10/21 20:00 97.5 F L 66 16 107/71 98 02/10/21 18:28 97.8 F 79 18 103/79 02/10/21 16:54 97.8 F 67 18 98/77 98 02/10/21 16:24 97.6 F 78 18 92/66 100 02/10/21 16:14 97.6 F 77 16 106/90 02/10/21 15:44 97.8 F 75 18 96/60 99 02/10/21 13:52 97.8 F 72 18 92/60 99 02/10/21 13:22 97.6 F 74 20 96/75 98 02/10/21 13:12 97.7 F 96 20 94/71 Intake and Output 02/10/21 02/11/21 02/11/21 22:59 06:59 14:59 Intake Total 620 825 Output Total 0 Balance 620 825 Intake: Intake, IV Titration 825 Amount Sodium Chloride 0.9% 1, 825 000 ml @ 75 mls/hr IV . [id number] STA Rx#:[id number] Blood Product 620 Rc As-1 Unit 310 [id number] Rc As-1 Unit 310 [id number] Output: Stool 0 Other: Voiding Method Toilet # Emeses 0 - Constitutional General appearance: cooperative, no acute distress - EENT Eyes: EOMI ENT: hard of hearing, NA/AT - Neck Neck: normal ROM - Respiratory Respiratory: bilateral: diminished, rhonchi - Cardiovascular Rhythm: regularly irregular - Gastrointestinal General gastrointestinal: distended, soft - Integumentary Integumentary: jaundiced, pale - Neurologic non focal - Musculoskeletal Musculoskeletal: generalized weakness - Psychiatric Psychiatric: A&O x's 3, appropriate affect, intact judgment & insight Results CBC & Chem 7: 02/12/21 05:31 02/12/21 05:31 Labs: Abnormal Lab Results - Last 24 Hours (Table) 02/10/21 02/10/21 02/11/21 Range/Units 10:54 13:10 06:34 WBC 1.0 L* (3.8-10.6) k/uL RBC 1.94 L (4.30-5.90) m/uL Hgb 7.0 L (13.0-17.5) gm/dL Hct 20.8 L (39.0-53.0) % MCV 107.7 H D (80.0-100.0) fL MCH 36.3 H (25.0-35.0) pg RDW 20.0 H (11.5-15.5) % Plt Count 100 L (150-450) k/uL Neutrophils # (Manual) 0.39 L* (1.3-7.7) k/uL Lymphocytes # (Manual) 0.44 L (1.0-4.8) k/uL Metamyelocytes # (Man) 0.01 H (0) k/uL Myelocytes # (Manual) 0.01 H (0) k/uL Macrocytosis Marked A Magnesium (1.5-2.4) mg/dL Urine Protein Trace H (Negative) Crossmatch See Detail 02/11/21 Range/Units 06:34 WBC (3.8-10.6) k/uL RBC (4.30-5.90) m/uL Hgb (13.0-17.5) gm/dL Hct (39.0-53.0) % MCV (80.0-100.0) fL MCH (25.0-35.0) pg RDW (11.5-15.5) % Plt Count (150-450) k/uL Neutrophils # (Manual) (1.3-7.7) k/uL Lymphocytes # (Manual) (1.0-4.8) k/uL Metamyelocytes # (Man) (0) k/uL Myelocytes # (Manual) (0) k/uL Macrocytosis Magnesium 1.4 L (1.5-2.4) mg/dL Urine Protein (Negative) Crossmatch Chest x-ray: report reviewed Assessment and Plan (1) Ascites Current Visit: Yes Status: Acute Code(s): R18.8 - OTHER ASCITES SNOMED Code(s): 684453585 (2) GI AVM (gastrointestinal arteriovenous vascular malformation) Current Visit: No Status: Acute Code(s): K55.20 - ANGIODYSPLASIA OF COLON WITHOUT HEMORRHAGE SNOMED Code(s): 900137596 (3) Liver cirrhosis, alcoholic Current Visit: No Status: Acute Code(s): K70.30 - ALCOHOLIC CIRRHOSIS OF LIVER WITHOUT ASCITES SNOMED Code(s): 730724874 (4) Pancytopenia Current Visit: No Status: Acute Code(s): D61.818 - OTHER PANCYTOPENIA SNOMED Code(s): 248276686 (5) Paroxysmal atrial fibrillation with RVR Current Visit: No Status: Acute Code(s): I48.0 - PAROXYSMAL ATRIAL FIBRILLATION SNOMED Code(s): 7909713011 Plan: Nomi has a known history of alcohol induced cirrhosis which is primary etiology of his pancytopenia. He also has known history of GI blood loss anemia. he was suppose to follow-up after last admission for Parental iron infusions in office, however he had never answered or called our office back to confirm an appointment. We discussed this during our visit and the importance of follow-up. He continues with questions of "why his blood counts are low?" and How do we improve which leads me to think he is not truly understanding despite the alta conversation of needing to quite alcohol completely, blood loss anemia as a result and liver cirrohosis as contributing factor to his marrow suppression. At this time he has agreed to follow-up in office as recommended after discharge - Will add folic acid for low folate - related to poor nutrition from ETOH - Await MMA for B12 supplementation - Iron studies are adequate at this time, but unclear if iron studies can be interpretted as accurate given time of draw. ETOH Cessation Considering bone marrow biopsy if persists and/or worsens, especially if after cessation of ETOH Transfusion support to keep Hemoglobin greater than 7 Recheck hepatic function and Coags in am Physician attest: I have completed the full history and physical and agree with above dictation, dictated as a ascribe.
[2021-02-12] MEDS: FOLIC ACID 1 MG TAB PO SCH (19:59)
[2021-02-12] MEDS: QUEtiapine 50 MG TAB PO SCH (20:57)
[2021-02-13] MEDS: HYDROcodone/APAP 10-325MG 1 EACH TAB PO PRN ×4 (00:20→22:39)
[2021-02-13] MEDS: LEVOTHYROXINE 100 MCG TAB PO SCH (05:59)
[2021-02-13 07:12] LABS: Anisocytosis Moderate; HCT 20.7 % (39.0-53.0); MCH 34.5 pg (25.0-35.0); MCV 104.4 fL (80.0-100.0); Macrocytosis Marked; Mean Platelet Volume 9.4; Poikilocytosis Slight; RBC 1.99 m/uL (4.30-5.90)
[2021-02-13 07:16] LABS: INR 1.1 (<1.2); Partial Thromboplastin Time 27.6 sec (22.0-30.0); Prothrombin Time 11.8 sec (9.0-12.0)
[2021-02-13 07:53] LABS: WBC 1.1 k/uL (3.8-10.6)
[2021-02-13 07:54] LABS: HGB 6.8 gm/dL (13.0-17.5); Platelet Count 85 k/uL (150-450)
[2021-02-13] MEDS: FUROSEMIDE 40 MG TAB PO SCH (09:43)
[2021-02-13] MEDS: THIAMINE 100 MG TAB PO SCH (09:43)
[2021-02-13] MEDS: FERROUS SULFATE 325 MG TAB PO SCH ×2 (09:43→20:09)
[2021-02-13] MEDS: PANTOPRAZOLE 40 MG/10 ML VIAL IV SCH (09:43)
[2021-02-13] MEDS: NICOTINE 14MG/24HR PATCH TRANSDERM SCH (09:43)
[2021-02-13] MEDS: FOLIC ACID 1 MG TAB PO SCH (09:44)
[2021-02-13] MEDS: POTASSIUM CHLORIDE ER 10 MEQ TAB.ER.PRT PO SCH ×2 (09:44→20:09)
--- NOTE | 2021-02-13 10:21 | P.PN ---
Subjective Progress Note Date: 02/13/21 Principal diagnosis: Anemia This a 65-year-old white male patient who presented to the emergency department with complaints of weakness and low hemoglobin done at his PCP office and was called to come to the emergency department for further evaluation. He has a past medical history including atrial fibrillation not on anticoagulation, heart failure, hypertension, alcohol dependence and thyroid disorder. Was noted to have a hemoglobin of 6.8 on admission and was given 2 units of PRBC transfusion. gastroenterology was consulted due to anemia. Patient has history of multipleB endoscopic evaluations. He's been admitted several times for anemia and GI bleed. On 08/15/2020 he underwent an EGD and colonoscopy by Dr. Corbett with findings of antral gastritis and polypectomy. 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 On 10/18/2020 he underwent a push enteroscopy by Dr. Power no wheezing 5 nonbleeding AVMs in the distal duodenum and proximal jejunum treated with argon plasma coagulation therapy. The patient denies any abdominal pain, nausea, or vomiting. Denies any hematemesis. States he has dark stool but he is on oral iron, does not report any blood in his stool. Patient has a significant history of EtOH abuse since the age of [age] years old. Up to last year he was drinking 12-14 beers a day. Over the last year he states he's been cut down to 6-8 beers a week sometimes more. Today the patient seen and examined lying in bed. He states he does feel increased fatigue and weakness this morning. His repeat hemoglobin was 6.8. Another unit of PRBC transfusion has been ordered. The patient continues to deny any nausea, vomiting, or abdominal pain. He continues to deny any signs or symptoms of GI bleed. States his stool is dark but not black. Diarrhea has resolved. Patient has been nothing by mouth since this morning. He has been afebrile. Objective - Vital Signs Vital signs: Vital Signs Temp 98.0 F 02/13/21 05:00 Pulse 77 02/13/21 05:00 Resp 16 02/13/21 05:00 BP 97/61 02/13/21 05:00 Pulse Ox 100 02/13/21 05:00 Intake & Output 02/12/21 02/13/21 02/13/21 18:59 06:59 18:59 Intake Total 910 Balance 910 Intake: Oral 600 Blood Product 310 Rc As-1 Unit 310 [id number] Other: Voiding Method Toilet # Voids 2 - Exam General appearance: The patient is alert, oriented, appears in no acute distress. HET: Head is normocephalic and atraumatic. Conjunctiva pink. Sclera anicteric. Neck: Supple without lymphadenopathy. Abdomen: Soft, nontender, nondistended with bowel sounds. No guarding or rigidity. Extremities: Normal skin color and turgor. Bilateral lower extremity edema. Skin: No rashes, no jaundice. Pale. Neurological: No focal deficits. Alert and oriented x3 - Labs CBC & Chem 7: 02/13/21 06:39 02/12/21 05:31 Labs: Abnormal Lab Results - Last 24 Hours (Table) 02/10/21 02/12/21 02/12/21 Range/Units 10:54 05:31 05:31 WBC (3.8-10.6) k/uL RBC (4.30-5.90) m/uL Hgb (13.0-17.5) gm/dL Hct (39.0-53.0) % MCV (80.0-100.0) fL RDW (11.5-15.5) % Plt Count 93 L (150-450) k/uL Neutrophils # (Manual) 0.40 L* (1.3-7.7) k/uL Lymphocytes # (Manual) 0.41 L (1.0-4.8) k/uL Myelocytes # (Manual) 0.02 H (0) k/uL Macrocytosis Sodium 134 L (135-145) mmol/L Carbon Dioxide 18.5 L (21.6-31.8) mmol/L Anion Gap 13.50 H (4.00-12.00) mmol/L BUN/Creatinine Ratio 11.56 L (12.00-20.00) Ratio Calcium 8.4 L (8.7-10.3) mg/dL Total Bilirubin 2.40 H (0.30-1.20) mg/dL Alkaline Phosphatase 241 H (41-126) U/L Total Protein 5.0 L (6.2-8.2) g/dL Albumin 3.4 L (3.8-4.9) g/dL Folate 3.80 L (4.40-31.00) ng/mL Crossmatch See Detail 02/13/21 Range/Units 06:39 WBC 1.1 L* (3.8-10.6) k/uL RBC 1.99 L (4.30-5.90) m/uL Hgb 6.8 L* (13.0-17.5) gm/dL Hct 20.7 L (39.0-53.0) % MCV 104.4 H (80.0-100.0) fL RDW 21.0 H (11.5-15.5) % Plt Count 85 L (150-450) k/uL Neutrophils # (Manual) (1.3-7.7) k/uL Lymphocytes # (Manual) (1.0-4.8) k/uL Myelocytes # (Manual) (0) k/uL Macrocytosis Marked A Sodium (135-145) mmol/L Carbon Dioxide (21.6-31.8) mmol/L Anion Gap (4.00-12.00) mmol/L BUN/Creatinine Ratio (12.00-20.00) Ratio Calcium (8.7-10.3) mg/dL Total Bilirubin (0.30-1.20) mg/dL Alkaline Phosphatase (41-126) U/L Total Protein (6.2-8.2) g/dL Albumin (3.8-4.9) g/dL Folate (4.40-31.00) ng/mL Crossmatch Microbiology - Last 24 Hours (Table) 02/12/21 14:20 Stool Culture - Preliminary Stool Assessment and Plan (1) Symptomatic anemia Narrative/Plan: 65-year-old male with history of chronic anemia along with history of Acute GI blood loss anemia. Full comorbidities including history of atrial fibrillation and coronary artery disease. However patient has not been on anticoagulation currently. Has a history of GI bleed and underwent EGD and colonoscopy in August of this year by Dr. Lovell with findings of antral gastritis and polypectomy. 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 Power showing nonbleeding AVMs in the distal duodenum and proximal jejunum treated with argon plasma coagulation therapy. Patient had been feeling weak and fatigued had blood work done at his PCPs office was called and told to come to the emergency department for low hemoglobin. Patient has a significant history of alcohol abuse JERRY of 15 years old for which she states over the last year he has cut down but still drinks weekly. He denies any previous history of liver disease however he has been admitted with pancytopenia in the past and has seen hematology for which he was supposed to have follow-up IV iron infusions and further workup. Patient states he has not been following with hematology and his PCP has been managing his iron with oral iron. The patient denies any signs or symptoms of GI blood loss. He does state he has been having loose stools over the last months duration up to 2 times a day. He denies any blood in his stool. He had a occ ult stool which was negative. On admission he had a hemoglobin of 6.8, he was given 2 units of PRBC transfusion with a repeat hemoglobin today of 7.0.his labs are consistent with pancytopenia, with a macrocytic anemia. Likely all related to underlying liver disease from alcoholic cirrhosis of the liver. Current Visit: No Status: Acute Code(s): D64.9 - ANEMIA, UNSPECIFIED SNOMED Code(s): 727167418 (2) Liver cirrhosis, alcoholic Narrative/Plan: Pancytopenia likely due to underlying liver disease. Patient also scheduled to undergo paracentesis with fluid studies. Current Visit: No Status: Acute Code(s): K70.30 - ALCOHOLIC CIRRHOSIS OF LIVER WITHOUT ASCITES SNOMED Code(s): 118236309 (3) Alcohol abuse Current Visit: No Status: Acute Code(s): F10.10 - ALCOHOL ABUSE, UNCOMPLICATED SNOMED Code(s): 35666657 (4) Pancytopenia Narrative/Plan: Pancytopenia likely related to underlying liver disease and alcoholic cirrhosis of the liver. Current Visit: No Status: Acute Code(s): D61.818 - OTHER PANCYTOPENIA SNOMED Code(s): 982275212 (5) Atrial fibrillation Narrative/Plan: Cardiology on consult, cardiac catheterization has been deferred. Current Visit: No Status: Acute Code(s): I48.91 - UNSPECIFIED ATRIAL FIBRILLATION SNOMED Code(s): 77158075 Plan: 1. Continue symptomatic and supportive care 2. Iron studies reviewed. 3. Repeat daily CBC transfuse her hemoglobin less than 7 4. Hematology for pancytopenia, appreciate their recommendations 5. Alcohol abstinence 6. Patient was cleared by cardiology to proceed with EGD. Discussed with patient this morning will proceed with EGD and push enteroscopy as hemoglobin continues to remain low. Agree with 1 unit PRBC transfusion. 7. Recommend continuing Lasix 40 mg daily 8. Agree with paracentesis with fluid studies 9. Further recommendations after EGD Thank you for allowing us to participate in the care of the patient, the GI service will sign off, gastroenterology will not be available at the hospital this weekend and through next week. If further evaluation by gastroenterology is required the patient will need transfer as per the primary team's discretion. Dr. Anderson Power I agree with the dictator's note, documented as a scribe by Niki Davis.
--- NOTE | 2021-02-13 10:21 | P.PN ---
Subjective This is a pleasant 65-year-old male past medical history significant for pancytopenia, hypertension, chronic Alcohol use since age of 15, chronic tobacco abuse, anemia, GI bleed, paroxysmal atrial fibrillation (was on Eliquis but discontinued due to GI bleed), moderate to severe mitral regurgitation (CARROLL completed in 06/2020), diastolic heart failure, pulmonary hypertension. He follows in the office with Dr. Daigle. We have been asked to see in consultation for "known to patient, and cardiac catheterization scheduled this week". Patient presented to the emergency department with worsening weakness, tiredness, and decreased strength. He denies any chest pain, shortness of breath, lightheadedness, dizziness, palpitations. He denies any symptoms of orthopnea or PND. He currently is still drinking alcohol about 3-4 beers/day. On admission, he was found to have a hemoglobin of 6.8, given 2 units of PRBCs. He denies any blood in his stool. Patient admitted multiple times for GI bleed/anemia. In 08/2020 he underwent an EGD and colonoscopy by Dr. Corbett findings of antral gastritis and polypectomy. 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 Also in 10/2020 he underwent a push enteroscopy by Dr. Power 5 nonbleeding AVMs in the distal duodenum and proximal jejunum treated with argon plasma coagulation therapy. Repeat echo in the office on 01/30/2021 revealed EF of 55%, moderate mitral regurgitation, torrential tricuspid regurgitation, with severely elevated RVSP of 102. Due to concern for worsening pulmonary hypertension, Dr. Daigle scheduled for patient to undergo right heart catheterization as well as left heart catheterization scheduled on 02/13. 02/13/2021 Patient seen and examined at bedside, no acute distress. He states he continues to feel weak. His nausea has improved. Denies any chest pain or shortness of breath. He underwent another blood unit transfusion yesterday. Labs reviewed, W BC 1.0, hemoglobin 6.8, platelets 85, BMP pending. He's currently maintained on ferrous sulfate, Lasix PO 40mg daily, metoprolol tartrate 40 mg daily. Telemetry reviewed patient in nature fibrillation with controlled ventricular rates. PHYSICAL EXAMINATION Blood pressure 106/78, heart rate 74, afebrile maintaining oxygen saturations on room air CONSTITUTIONAL: No apparent distress. Obese HEENT: Neck Supple. No JVD. CHEST EXAMINATION: Lungs are clear to auscultation. No chest wall tenderness is noted on palpation or with deep breathing. HEART EXAMINATION: Irregular rate and rhythm. S1, S2 heard. Systolic ejection murmur ABDOMEN: Soft, nontender. Positive bowel sounds. EXTREMITIES: 2+ peripheral pulses, bilateral moderate lower extremity edema and no calf tenderness. SKIN: Jaundice, pale NEUROLOGIC EXAMINATION: Patient is awake, alert and oriented x3. ASSESSMENT Pancytopenia Anemia s/p 3 units of PRBC Chronic alcohol abuse Liver Cirrhosis Moderate to severe mitral regurgitation Pulmonary Hypertension Severe Tricuspid regurgitation, with severely elevated RVSP of 102 Hyperlipidemia Paroxysmal atrial fibrillation, not on anticoagulation due to anemia Tobacco abuse Chronic diastolic heart failure Hyponatremia Hypomagnesemia PLAN -We will hold off on cardiac catheterization at this time due to anemia -Plan for 1unit of PRBC today -No anticoagulation -Monitor for symptoms of withdrawal -Hematology/Oncology consulted -GI following, possible plan for EGD today, from a cardiology perspective benefit outweighs risk of EGD -Hold lisinopril and amlodipine due to hypotension -Alcohol and tobacco cessation discussed and highly recommended with patient -Further recommendations based on clinical course Nurse Practitioner note has been reviewed, I agree with a documented findings and plan of care. Patient was seen and examined. Objective - Vital Signs Vital signs: Vital Signs Temp 98.1 F 02/13/21 09:50 Pulse 74 02/13/21 09:50 Resp 16 02/13/21 09:50 BP 106/78 02/13/21 09:50 Pulse Ox 97 02/13/21 09:50 Intake & Output 02/12/21 02/13/21 02/13/21 18:59 06:59 18:59 Intake Total 910 0 Output Total 600 Balance 910 -600 Intake: Oral 600 Blood Product 310 0 Rc As-1 Unit 0 [id number] Rc As-1 Unit 310 [id number] Output: Urine 600 Other: Voiding Method Toilet # Voids 2 2 - Labs CBC & Chem 7: 02/13/21 06:39 02/12/21 05:31 Labs: Abnormal Lab Results - Last 24 Hours (Table) 02/10/21 02/12/21 02/12/21 Range/Units 10:54 05:31 05:31 WBC (3.8-10.6) k/uL RBC (4.30-5.90) m/uL Hgb (13.0-17.5) gm/dL Hct (39.0-53.0) % MCV (80.0-100.0) fL RDW (11.5-15.5) % Plt Count 93 L (150-450) k/uL Neutrophils # (Manual) 0.40 L* (1.3-7.7) k/uL Lymphocytes # (Manual) 0.41 L (1.0-4.8) k/uL Myelocytes # (Manual) 0.02 H (0) k/uL Macrocytosis Sodium 134 L (135-145) mmol/L Carbon Dioxide 18.5 L (21.6-31.8) mmol/L Anion Gap 13.50 H (4.00-12.00) mmol/L BUN/Creatinine Ratio 11.56 L (12.00-20.00) Ratio Calcium 8.4 L (8.7-10.3) mg/dL Total Bilirubin 2.40 H (0.30-1.20) mg/dL Alkaline Phosphatase 241 H (41-126) U/L Total Protein 5.0 L (6.2-8.2) g/dL Albumin 3.4 L (3.8-4.9) g/dL Folate 3.80 L (4.40-31.00) ng/mL Crossmatch See Detail 02/13/21 Range/Units 06:39 WBC 1.1 L* (3.8-10.6) k/uL RBC 1.99 L (4.30-5.90) m/uL Hgb 6.8 L* (13.0-17.5) gm/dL Hct 20.7 L (39.0-53.0) % MCV 104.4 H (80.0-100.0) fL RDW 21.0 H (11.5-15.5) % Plt Count 85 L (150-450) k/uL Neutrophils # (Manual) (1.3-7.7) k/uL Lymphocytes # (Manual) (1.0-4.8) k/uL Myelocytes # (Manual) (0) k/uL Macrocytosis Marked A Sodium (135-145) mmol/L Carbon Dioxide (21.6-31.8) mmol/L Anion Gap (4.00-12.00) mmol/L BUN/Creatinine Ratio (12.00-20.00) Ratio Calcium (8.7-10.3) mg/dL Total Bilirubin (0.30-1.20) mg/dL Alkaline Phosphatase (41-126) U/L Total Protein (6.2-8.2) g/dL Albumin (3.8-4.9) g/dL Folate (4.40-31.00) ng/mL Crossmatch Microbiology - Last 24 Hours (Table) 02/12/21 14:20 Stool Culture - Preliminary Stool
[2021-02-13] MEDS: ALBUTEROL HFA INHALER INHALATION PRN (11:09)
[2021-02-13 11:34] LABS: Magnesium 1.7 mg/dL (1.5-2.4)
[2021-02-13 11:37] LABS: African American GFR (CKD) 102.8 (60.0-200.0); Albumin 3.4 g/dL (3.8-4.9); Anion Gap 9.8 mmol/L (4.00-12.00); BUN/Creat Ratio 11.67 Ratio (12.00-20.00); Blood Urea Nitrogen 10.5 mg/dL (9.0-27.0); Calcium 8.6 mg/dL (8.7-10.3); Carbon Dioxide 20.2 mmol/L (21.6-31.8); Globulin 1.7 g/dL (1.6-3.3); Non-African American GFR(CKD) 88.7 (60.0-200.0); Potassium 4.1 mmol/L (3.5-5.5); Total Bilirubin 2.7 mg/dL (0.30-1.20); Total Protein 5.1 g/dL (6.2-8.2)
--- NOTE | 2021-02-13 12:50 | P.PN ---
Subjective Progress Note Date: 02/13/21 This is a pleasant 65-year-old male was recently hospitalized for acute GI bleed found to have arterial venous malformations and at that time patient underwent upper GI endoscopy colonoscopy push enteroscopy as well as capsule endoscopy, patient does have history of atrial fibrillation as an anti-correlation which was held and patient was discharged at that time. Patient is presently not on any anticoagulation or antiplatelet therapy with came in with very low hemoglobin generalized tiredness and weakness and found to have hemoglobin of 6.8 because of which patient was sent to the hospital. Patient does have pancytopenia directed have history of alcohol abuse and believed to have bone marrow suppression. Patient does have distention of the abdomen and may have ascites supposed to get an outpatient ultrasound today. Patient also has very low magnesium of 0.8. Patient is also hyponatremic his medications are not verified appears to be on Lasix for cirrhosis and volume overload secondary to that. Patient had normal ejection fraction the past patient is supposed to get cardiac catheterization as an outpatient this Tuesday. She does admit to having diarrhea and multiple or Doxil stress today and one episode of Doxil today. Gastric body will be consulted. 02/11/2021 Patient evaluated today resting in bed. He does report some diarrhea, he denies any blood in the stool. His hemoglobin today 7 status post 2 units of PRBC. Additional labs included white count of 1, RBC 1.94, platelet count of 100. Neutrophils are elevated at 0.39. Labs today show a magnesium of 1.4. Patient does report drinking a couple beers a day for many years. GI services consulted hematology for the pancytopenia. Cardiology consultation. Patient was planned for a right and left cardiac catheterization on Tuesday due to severely elevated RVSP of 102 found on echocardiogram. 02/12/21 Hemoglobin today came back at 6.5 we did transfuse 1 more unit of PRBCs. Additional labs included WBC of 1, RBC 1.78, hematocrit critical 18.7, there were no platelet counts available for today. Metabolic panel still pending. Ordered a paracentesis from IR for abdominal ascites on ultrasound. Vital show a blood pressure 104/64, afebrile. Pending consultation from hematology services. Repeat labs in the morning. 02/13/2021 Hemoglobin is 6.8 today and he is transfusing 1 unit of PRBCs. Additional labs are white blood cell count 1.1, platelet 85, INR today 1.1. Sodium levels 132 magnesium 1.7, potassium 4.1. Alk phos increased to 247, total bili 2.7, albumin is 5.1. Folate was found to be 3.8, was started on oral replacement from hematology. Paracentesis was completed at the bedside this afternoon. Recent EGD/colonoscopy in August 2020 showed antral gastritis and polypectomy. 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 Patient is frustrated and not understa nding why his blood counts are continuing to be low. He denies that this is because of his chronic alcohol abuse. Apparently has not followed up as recommended in the office with hematology services for iron transfusions. Patient continues in A. fib, rate controlled he is on metoprolol and Lasix and iron. Cardiac catheterization is still on hold due to ongoing anemia. Plan is for an EGD today. Blood pressure 108/71, afebrile, 98% on room air. ROS Constitutional: Denied any fatigue denied any fever. Cardio vascular: denied any chest pain, palpitations Gastrointestinal denied any nausea vomiting, reports loose stool, denies blood in the stool Pulmonary: Denied any shortness of breath cough Neurologic denied any new focal deficits All inpatient medications were reviewed and appropriate changes in these medications as dictated in the interval history and assessment and plan. PHYSICAL EXAMINATION: GENERAL: The patient is alert and oriented x3, not in any acute distress. Well developed, well nourished. HEENT: Pupils are round and equally reacting to light. EOMI. No scleral icterus. Does have conjunctival pallor . Normocephalic, atraumatic. No pharyngeal erythema. No thyromegaly. CARDIOVASCULAR: S1 and S2 present. No murmurs, rubs, or gallops. PULMONARY: Chest is clear to auscultation, no wheezing or crackles. ABDOMEN: Soft, nontender, distended with fluid shift normoactive bowel sounds. No palpable organomegaly. MUSCULOSKELETAL: No joint swelling or deformity. EXTREMITIES: No cyanosis, clubbing, bilateral lower extremity edema NEUROLOGICAL: Gross neurological examination did not reveal any focal deficits. SKIN: No rashes. Assessment and plan -Anemia secondary to possible acute upper GI bleed from an AV malformation, hgb 6.8 - transfuse 1 u prbc today - has received 4 units total, Repeat EGD planned for today -Hyponatremia appears to be hypervolemic hyponatremia from cirrhosis, on oral Lasix -Paroxysmal atrial fibrillation, not on anticoagulation due to anemia -Hypomagnesemia: Probably due to chronic alcohol abuse, replace per protocol we will add oral magnesium daily. -Nicotine use: Counseling was provided -Pulmonary hypertension - was scheduled for outpatient right and left cath on Tuesday 02/13, which is now on hold due to anemia. -Moderate to severe mitral regurgitation -Chronic diastolic congestive heart failure current EF is 55%, not in acute exacerbation -Chronic alcohol abuse -Volume overload secondary to cirrhosis, paracentesis ordered for today -Hypertension -Hypothyroidism DVT prophylaxis: No pharmacological anticoagulation because of GI bleed Cardiology will hold off on catheterization for now. Repeat labs in the morning. Replace electrolytes per protocol. Objective - Vital Signs Vital signs: Vital Signs Temp 98.5 F 02/13/21 11:35 Pulse 84 02/13/21 12:38 Resp 16 02/13/21 12:38 BP 108/71 02/13/21 12:38 Pulse Ox 98 02/13/21 12:38 Intake & Output 02/12/21 02/13/21 02/13/21 18:59 06:59 18:59 Intake Total 910 310 Output Total 600 Balance 910 -290 Intake: Oral 600 Blood Product 310 310 Rc As-1 Unit 310 [id number] Rc As-1 Unit 310 [id number] Output: Urine 600 Other: Voiding Method Toilet # Voids 2 2 - Labs CBC & Chem 7: 02/13/21 06:39 02/13/21 06:39 Labs: Abnormal Lab Results - Last 24 Hours (Table) 02/10/21 02/12/21 02/12/21 Range/Units 10:54 05:31 05:31 WBC (3.8-10.6) k/uL RBC (4.30-5.90) m/uL Hgb (13.0-17.5) gm/dL Hct (39.0-53.0) % MCV (80.0-100.0) fL RDW (11.5-15.5) % Plt Count 93 L (150-450) k/uL Neutrophils # (Manual) 0.40 L* (1.3-7.7) k/uL Lymphocytes # (Manual) 0.41 L (1.0-4.8) k/uL Myelocytes # (Manual) 0.02 H (0) k/uL Macrocytosis Sodium 134 L (135-145) mmol/L Carbon Dioxide 18.5 L (21.6-31.8) mmol/L Anion Gap 13.50 H (4.00-12.00) mmol/L BUN/Creatinine Ratio 11.56 L (12.00-20.00) Ratio Calcium 8.4 L (8.7-10.3) mg/dL Total Bilirubin 2.40 H (0.30-1.20) mg/dL Alkaline Phosphatase 241 H (41-126) U/L Total Protein 5.0 L (6.2-8.2) g/dL Albumin 3.4 L (3.8-4.9) g/dL Folate 3.80 L (4.40-31.00) ng/mL Crossmatch See Detail 02/13/21 02/13/21 Range/Units 06:39 06:39 WBC 1.1 L* (3.8-10.6) k/uL RBC 1.99 L (4.30-5.90) m/uL Hgb 6.8 L* (13.0-17.5) gm/dL Hct 20.7 L (39.0-53.0) % MCV 104.4 H (80.0-100.0) fL RDW 21.0 H (11.5-15.5) % Plt Count 85 L (150-450) k/uL Neutrophils # (Manual) (1.3-7.7) k/uL Lymphocytes # (Manual) (1.0-4.8) k/uL Myelocytes # (Manual) (0) k/uL Macrocytosis Marked A Sodium 132 L (135-145) mmol/L Carbon Dioxide 20.2 L (21.6-31.8) mmol/L Anion Gap (4.00-12.00) mmol/L BUN/Creatinine Ratio 11.67 L (12.00-20.00) Ratio Calcium 8.6 L (8.7-10.3) mg/dL Total Bilirubin 2.70 H (0.30-1.20) mg/dL Alkaline Phosphatase 247 H (41-126) U/L Total Protein 5.1 L (6.2-8.2) g/dL Albumin 3.4 L (3.8-4.9) g/dL Folate (4.40-31.00) ng/mL Crossmatch Microbiology - Last 24 Hours (Table) 02/12/21 14:20 Stool Culture - Preliminary Stool Assessment and Plan Time with Patient: Greater than 30
[2021-02-13] MEDS: MAGNESIUM SULFATE-D5W PMX 1 GM in DEXTROSE/WATER 1 100ML.BAG IVPB SCH ×2 (13:20→15:52)
[2021-02-13] MEDS ORDERED: PROPOFOL 10 MG/ML 20 ML VIAL IV ONE (14:18)
[2021-02-13] MEDS ORDERED: LIDOCAINE 1% INJ 10MG/ML (20 ML MDV) ONE (14:18)
[2021-02-13] MEDS ORDERED: IV FLUID CONTINUATION 1,000 ML IV ONE (14:19)
--- NOTE | 2021-02-13 14:51 | US ---
EXAMINATION TYPE: US paracentesis abd w/image DATE OF EXAM: 02/13/2021 COMPARISON: NONE HISTORY: Ascites. PROCEDURE: Maximal barrier technique was utilized. The skin overlying a suitable pocket of fluid was localized with ultrasound and the overlying skin was prepped and draped. Ultrasound was utilized with sterile technique. Lidocaine was used for local anesthesia and a skin salvador made with a scalpel. Catheter was advanced under direct ultrasound guidance into a suitable pocket of fluid and approximately 2 liters of serous fluid were removed. Catheter was withdrawn and hemostasis achieved. There is no immediate complication; the patient is discharged in stable condition. IMPRESSION: STATUS POST ULTRASOUND GUIDED PARACENTESIS FOR PALLIATION OF ASCITES. THIS PROCEDURE WA S PERFORMED BY THE UNDERSIGNED. Specimen obtained for analysis.
--- NOTE | 2021-02-13 15:04 | P.PCN ---
Date of Procedure: 02/13/21 Procedure(s) Performed: BRIEF HISTORY: Patient is a 65-year-old, pleasant, male admitted hospital with severe symptomatic anemia and hemoglobin of 6.5 g/dL. He received total of 4 units of PRBC transfusion last hemoglobin was 6.8 g/dL. His been having some darker stools. 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 Because of the persistent anemia and occult Elda scheduled for repeat upper endoscopy/enteroscopy today. PROCEDURE PERFORMED: Esophagogastroduodenoscopy/enteroscopy with argon plasma coagulation. PREOPERATIVE DIAGNOSIS: Anemia and occult stools. IV sedation per anesthesia. PROCEDURE: After informed consent was obtained, the patient was brought into the endoscopy unit. IV sedation was administered by Anesthesia under continuous monitoring. Initially the Olympus GIF-140 video endoscope was inserted into the mouth. Esophagus intubated without any difficulty. It was gradually advanced into the stomach and duodenum and proximal jejunum and carefully examined. The proximal jejunum appeared normal. In the second part of the duodenum there was a 3 mm nonbleeding AVM that was coagulated using argon plasma. The bulb of the duodenum appeared normal. The scope at this time was withdrawn to the stomach, adequately insufflated with air, and upon careful examination, mucosa of the antrum, had mild gastritis. In the body the stomach there were few scattered arteriovenous malformations that are not bleeding identified as a widely to using argon plasma. body, cardia and the fundus appeared normal. The scope was then withdrawn into the esophagus. The GE junction was located at 39 cm from the incisors. The esophagus appeared normal. There were no erosions or ulcerations seen and the patient tolerated the procedure well. IMPRESSION: 1. 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 2. Mild antral Gastritis. RECOMMENDATIONS: The findings of this examination were discussed with the patient . Diet will be advanced as tolerated. Monitor CBC daily. Continue iron supplements.
[2021-02-13 16:02] LABS: Lymphocytes # (M) 0.56 k/uL (1.0-4.8); Monocytes # (M) 0.23 k/uL (0-1.0); Neutrophils # (M) 0.31 k/uL (1.3-7.7); Neutrophils % (M) 28 %; Nucleated Red Blood Cells 0 /100 WBC (0-0); Total Cells Counted 100
--- NOTE | 2021-02-13 18:57 | P.PN ---
Subjective Progress Note Date: 02/13/21 GI evalaution today, he has just returned. Objective - Vital Signs Vital signs: Vital Signs Temp 98.5 F 02/13/21 11:35 Pulse 84 02/13/21 13:16 Resp 16 02/13/21 13:16 BP 112/77 02/13/21 13:16 Pulse Ox 97 02/13/21 13:16 Intake & Output 02/12/21 02/13/21 02/13/21 18:59 06:59 18:59 Intake Total 910 310 Output Total 600 Balance 910 -290 Intake: Oral 600 Blood Product 310 310 Rc As-1 Unit 310 [id number] Rc As-1 Unit 310 [id number] Output: Urine 600 Other: Voiding Method Toilet # Voids 2 2 - Exam - Constitutional General appearance: cooperative, no acute distress - EENT Eyes: EOMI ENT: hard of hearing, NA/AT - Neck Neck: normal ROM - Respiratory Respiratory: bilateral: diminished, rhonchi - Cardiovascular Rhythm: regularly irregular - Gastrointestinal General gastrointestinal: distended, soft - Integumentary Integumentary: jaundiced, pale - Neurologic non focal - Musculoskeletal Musculoskeletal: generalized weakness - Psychiatric Psychiatric: A&O x's 3, appropriate affect, intact judgment & insight - Labs CBC & Chem 7: 02/13/21 06:39 02/13/21 06:39 Labs: Abnormal Lab Results - Last 24 Hours (Table) 02/10/21 02/12/21 02/13/21 Range/Units 10:54 05:31 06:39 WBC 1.1 L* (3.8-10.6) k/uL RBC 1.99 L (4.30-5.90) m/uL Hgb 6.8 L* (13.0-17.5) gm/dL Hct 20.7 L (39.0-53.0) % MCV 104.4 H (80.0-100.0) fL RDW 21.0 H (11.5-15.5) % Plt Count 85 L (150-450) k/uL Macrocytosis Marked A Sodium 134 L (135-145) mmol/L Carbon Dioxide 18.5 L (21.6-31.8) mmol/L Anion Gap 13.50 H (4.00-12.00) mmol/L BUN/Creatinine Ratio 11.56 L (12.00-20.00) Ratio Calcium 8.4 L (8.7-10.3) mg/dL Total Bilirubin 2.40 H (0.30-1.20) mg/dL Alkaline Phosphatase 241 H (41-126) U/L Total Protein 5.0 L (6.2-8.2) g/dL Albumin 3.4 L (3.8-4.9) g/dL Folate 3.80 L (4.40-31.00) ng/mL Crossmatch See Detail 02/13/21 Range/Units 06:39 WBC (3.8-10.6) k/uL RBC (4.30-5.90) m/uL Hgb (13.0-17.5) gm/dL Hct (39.0-53.0) % MCV (80.0-100.0) fL RDW (11.5-15.5) % Plt Count (150-450) k/uL Macrocytosis Sodium 132 L (135-145) mmol/L Carbon Dioxide 20.2 L (21.6-31.8) mmol/L Anion Gap (4.00-12.00) mmol/L BUN/Creatinine Ratio 11.67 L (12.00-20.00) Ratio Calcium 8.6 L (8.7-10.3) mg/dL Total Bilirubin 2.70 H (0.30-1.20) mg/dL Alkaline Phosphatase 247 H (41-126) U/L Total Protein 5.1 L (6.2-8.2) g/dL Albumin 3.4 L (3.8-4.9) g/dL Folate (4.40-31.00) ng/mL Crossmatch Microbiology - Last 24 Hours (Table) 02/12/21 14:20 Stool Culture - Preliminary Stool Assessment and Plan (1) Ascites Current Visit: Yes Status: Acute Code(s): R18.8 - OTHER ASCITES SNOMED Code(s): 313799785 (2) GI AVM (gastrointestinal arteriovenous vascular malformation) Current Visit: No Status: Acute Code(s): K55.20 - ANGIODYSPLASIA OF COLON WITHOUT HEMORRHAGE SNOMED Code(s): 445565329 (3) Liver cirrhosis, alcoholic Current Visit: No Status: Acute Code(s): K70.30 - ALCOHOLIC CIRRHOSIS OF LIVER WITHOUT ASCITES SNOMED Code(s): 089095303 (4) Pancytopenia Current Visit: No Status: Acute Code(s): D61.818 - OTHER PANCYTOPENIA SNOMED Code(s): 498216515 (5) Paroxysmal atrial fibrillation with RVR Current Visit: No Status: Acute Code(s): I48.0 - PAROXYSMAL ATRIAL FIBRILLATION SNOMED Code(s): 9906918595 Plan: Nomi has a known history of alcohol induced cirrhosis which is primary etiology of his pancytopenia. He also has known history of GI blood loss anemia. he was suppose to follow-up after last admission for Parental iron infusions in office, however he had never answered or called our office back to confirm an appointment. We discussed this during our visit and the importance of follow-up. He continues with questions of "why his blood counts are low?" and How do we improve which leads me to think he is not truly understanding despite the alta conversation of needing to quite alcohol completely, blood loss anemia as a res ult and liver cirrohosis as contributing factor to his marrow suppression. At this time he has agreed to follow-up in office as recommended after discharge - Will add folic acid for low folate - related to poor nutrition from ETOH - Await MMA for B12 supplementation - Iron studies are adequate at this time, but unclear if iron studies can be interpretted as accurate given time of draw. ETOH Cessation Considering bone marrow biopsy if persists and/or worsens, especially if after cessation of ETOH Transfusion support to keep Hemoglobin greater than 7 Will review procedure with GI team and replace Iron if evidence of active bleeding Folic acid added Discussed in detail with primary team
[2021-02-13] MEDS: QUEtiapine 50 MG TAB PO SCH (20:09)
[2021-02-13 21:36] LABS: Appearance,BF Hazy; Nucleated Cells, Body Fluid 80 /uL; RBC, Body Fluid 1590 /uL
[2021-02-13 21:42] LABS: Mononuclear WBC,Body Fluid 100 %; Total Cells Counted,Body Fluid 100
[2021-02-14 06:44] LABS: Glucose, BF Source Ascites; Glucose, Body Fluid 104 mg/dL; LDH, Body Fluid Source Ascites; Total Protein, Body Fluid 2870 mg/dL
[2021-02-14] MEDS ORDERED: ONDANSETRON 4 MG/2 ML VIAL IVP PRN (07:52)
[2021-02-14] MEDS ORDERED: ACETAMINOPHEN TAB 325 MG TAB PO PRN (07:52)
[2021-02-14 08:10] LABS: Anisocytosis Moderate; HCT 24.1 % (39.0-53.0); HGB 8.2 gm/dL (13.0-17.5); MCH 34.6 pg (25.0-35.0); MCV 101.6 fL (80.0-100.0); Macrocytosis Moderate; Poikilocytosis Slight; RBC 2.38 m/uL (4.30-5.90); RDW 20.9 % (11.5-15.5); WBC 2.7 k/uL (3.8-10.6)
[2021-02-14 08:50] LABS: Band Neutrophils % 6 %; Lymphocytes # (M) 0.32 k/uL (1.0-4.8); Monocytes # (M) 0.54 k/uL (0-1.0); Neutrophils % (M) 62 %; Nucleated Red Blood Cells 0 /100 WBC (0-0); Total Cells Counted 100
[2021-02-14 08:51] LABS: Platelet Count 96 k/uL (150-450)
[2021-02-14 09:19] LABS: Albumin, Fluid Source Ascites
[2021-02-14] MEDS: PANTOPRAZOLE 40 MG/10 ML VIAL IV SCH (09:40)
[2021-02-14] MEDS: POTASSIUM CHLORIDE ER 10 MEQ TAB.ER.PRT PO SCH ×2 (09:41→21:21)
[2021-02-14] MEDS: FUROSEMIDE 40 MG TAB PO SCH (09:41)
[2021-02-14] MEDS: FERROUS SULFATE 325 MG TAB PO SCH ×2 (09:41→21:21)
[2021-02-14] MEDS: MAGNESIUM OXIDE 400 MG TAB PO SCH ×2 (09:41→21:21)
[2021-02-14] MEDS: LEVOTHYROXINE 100 MCG TAB PO SCH (09:41)
[2021-02-14] MEDS: FOLIC ACID 1 MG TAB PO SCH (09:41)
[2021-02-14] MEDS: THIAMINE 100 MG TAB PO SCH (09:41)
[2021-02-14] MEDS: NICOTINE 14MG/24HR PATCH TRANSDERM SCH ×2 (09:42→09:51)
--- NOTE | 2021-02-14 11:15 | P.PN ---
Subjective This is a pleasant 65-year-old male past medical history significant for pancytopenia, hypertension, chronic Alcohol use since age of 15, chronic tobacco abuse, anemia, GI bleed, paroxysmal atrial fibrillation (was on Eliquis but discontinued due to GI bleed), moderate to severe mitral regurgitation (CARROLL completed in 06/2020), diastolic heart failure, pulmonary hypertension. He follows in the office with Dr. Daigle. We have been asked to see in consultation for "known to patient, and cardiac catheterization scheduled this week". Patient presented to the emergency department with worsening weakness, tiredness, and decreased strength. He denies any chest pain, shortness of breath, lightheadedness, dizziness, palpitations. He denies any symptoms of orthopnea or PND. He currently is still drinking alcohol about 3-4 beers/day. On admission, he was found to have a hemoglobin of 6.8, given 2 units of PRBCs. He denies any blood in his stool. Patient admitted multiple times for GI bleed/anemia. In 08/2020 he underwent an EGD and colonoscopy by Dr. Jamesania findings of antral gastritis and polypectomy. 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 Also in 10/2020 he underwent a push enteroscopy by Dr. Power 5 nonbleeding AVMs in the distal duodenum and proximal jejunum treated with argon plasma coagulation therapy. Repeat echo in the office on 01/30/2021 revealed EF of 55%, moderate mitral regurgitation, torrential tricuspid regurgitation, with severely elevated RVSP of 102. Due to concern for worsening pulmonary hypertension, Dr. Daigle scheduled for patient to undergo right heart catheterization as well as left heart catheterization scheduled on 02/13. 02/13/2021 Patient seen and examined at bedside, no acute distress. He states he continues to feel weak. His nausea has improved. Denies any chest pain or shortness of breath. He underwent another blood unit transfusion yesterday. Labs reviewed, WBC 1.0, hemoglobin 6.8, platelets 85, BMP pending. He's currently maintained on ferrous sulfate, Lasix PO 40mg daily, metoprolol tartrate 40 mg daily. Telemetry reviewed patient in nature fibrillation with controlled ventricular rates. 02/14 Continue examined. Patient denies any chest pain or pressure. He admits he did feel somewhat worse yesterday however feeling somewhat improved today. He did receive transfusion with hemoglobin up in the eights today. He also underwent paracentesis yesterday as well as EGD which showed non bleeding AV malformations with coagulation of these performed. PHYSICAL EXAMINATION Vitals removed CONSTITUTIONAL: No apparent distress. Obese HEENT: Neck Supple. No JVD. CHEST EXAMINATION: Lungs are clear to auscultation. No chest wall tenderness is noted on palpation or with deep breathing. HEART EXAMINATION: Irregular rate and rhythm. S1, S2 heard. Systolic ejection murmur ABDOMEN: Soft, nontender. Positive bowel sounds. EXTREMITIES: 2+ peripheral pulses, bilateral moderate lower extremity edema and no calf tenderness. SKIN: Jaundice, pale NEUROLOGIC EXAMINATION: Patient is awake, alert and oriented x3. ASSESSMENT Pancytopenia Anemia s/p 3 units of PRBC Chronic alcohol abuse Liver Cirrhosis Moderate to severe mitral regurgitation Pulmonary Hypertension Severe Tricuspid regurgitation, with severely elevated RVSP of 102 Hyperlipidemia Paroxysmal atrial fibrillation, not on anticoagulation due to anemia Tobacco abuse Chronic diastolic heart failure Hyponatremia Hypomagnesemia PLAN Heart catheterization have been recommended to evaluate degree of pulmonary hypertension which appeared out of proportion to long and heart disease. May be component from his mitral regurgitation however also concern of possible primary pulmonary hypertension. We will defer heart catheterization at this time however. Numerous other etiologies and patient with pancytopenia and AV malformations status post cauterization. Continue to monitor hemoglobin. We will add her body oh for his pulmonary hypertension. Continue supportive care. Prognosis guarded. Objective - Vital Signs Vital signs: Vital Signs Temp 99.2 F 02/14/21 09:47 Pulse 107 H 02/14/21 09:47 Resp 20 02/14/21 09:47 BP 100/61 02/14/21 09:47 Pulse Ox 100 02/14/21 09:47 Intake & Output 02/13/21 02/14/21 02/14/21 18:59 06:59 18:59 Intake Total 2320 240 Output Total 600 300 Balance 1720 -60 Intake: IV 200 Intake, IV Titration 650 Amount IV Fluid Continuation 1, 450 000 ml @ 0 mls/hr IV .STK -[facility] Rx#:[id number] Magnesium Sulfate-D5w Pmx 200 1 gm In Dextrose/Water 1 100ml.bag @ 100 mls/hr IVPB Q1H [facility] Rx#: [id number] Oral 1160 240 Blood Product 310 Rc As-1 Unit 310 [id number] Output: Urine 600 300 Other: Voiding Method Toilet # Voids 2 2 # Bowel Movements 1 2 - Labs CBC & Chem 7: 02/14/21 07:09 02/13/21 06:39 Labs: Abnormal Lab Results - Last 24 Hours (Table) 02/10/21 02/13/21 02/13/21 Range/Units 10:54 06:39 06:39 WBC (3.8-10.6) k/uL RBC (4.30-5.90) m/uL Hgb (13.0-17.5) gm/dL Hct (39.0-53.0) % MCV (80.0-100.0) fL RDW (11.5-15.5) % Plt Count (150-450) k/uL Neutrophils # (Manual) 0.31 L* (1.3-7.7) k/uL Lymphocytes # (Manual) 0.56 L (1.0-4.8) k/uL Sodium 132 L (135-145) mmol/L Carbon Dioxide 20.2 L (21.6-31.8) mmol/L BUN/Creatinine Ratio 11.67 L (12.00-20.00) Ratio Calcium 8.6 L (8.7-10.3) mg/dL Total Bilirubin 2.70 H (0.30-1.20) mg/dL Alkaline Phosphatase 247 H (41-126) U/L Total Protein 5.1 L (6.2-8.2) g/dL Albumin 3.4 L (3.8-4.9) g/dL Crossmatch See Detail 02/14/21 Range/Units 07:09 WBC 2.7 L (3.8-10.6) k/uL RBC 2.38 L (4.30-5.90) m/uL Hgb 8.2 L (13.0-17.5) gm/dL Hct 24.1 L (39.0-53.0) % MCV 101.6 H (80.0-100.0) fL RDW 20.9 H (11.5-15.5) % Plt Count 96 L (150-450) k/uL Neutrophils # (Manual) (1.3-7.7) k/uL Lymphocytes # (Manual) 0.32 L (1.0-4.8) k/uL Sodium (135-145) mmol/L Carbon Dioxide (21.6-31.8) mmol/L BUN/Creatinine Ratio (12.00-20.00) Ratio Calcium (8.7-10.3) mg/dL Total Bilirubin (0.30-1.20) mg/dL Alkaline Phosphatase (41-126) U/L Total Protein (6.2-8.2) g/dL Albumin (3.8-4.9) g/dL Crossmatch Microbiology - Last 24 Hours (Table) 02/13/21 12:30 Gram Stain - Preliminary Ascites Fluid Body Fluid Culture - Preliminary 02/13/21 12:30 Acid Fast Bacilli Culture - Preliminary Abdominal Fluid 02/13/21 12:30 Anaerobic Culture - Preliminary Ascites Fluid 02/13/21 12:30 Fungal Culture - Preliminary Abdominal Fluid
[2021-02-14] MEDS: SILDENAFIL 20 MG TAB PO SCH ×3 (13:02→21:21)
[2021-02-14] MEDS: HYDROcodone/APAP 10-325MG 1 EACH TAB PO PRN ×2 (13:11→19:10)
[2021-02-14 13:35] LABS: Magnesium 1.6 mg/dL (1.5-2.4)
[2021-02-14 13:45] LABS: African American GFR (CKD) 80.6 (60.0-200.0); Albumin 3.6 g/dL (3.8-4.9); Albumin/Globulin Ratio 2.12 (1.60-3.17); Anion Gap 13.9 mmol/L (4.00-12.00); BUN/Creat Ratio 12.36 Ratio (12.00-20.00); Blood Urea Nitrogen 13.6 mg/dL (9.0-27.0); Calcium 8.7 mg/dL (8.7-10.3); Carbon Dioxide 18.1 mmol/L (21.6-31.8); Globulin 1.7 g/dL (1.6-3.3); Non-African American GFR(CKD) 69.6 (60.0-200.0); Total Bilirubin 4.8 mg/dL (0.30-1.20); Total Protein 5.3 g/dL (6.2-8.2)
[2021-02-14] MEDS: ALBUTEROL HFA INHALER INHALATION PRN ×2 (15:10→19:13)
[2021-02-14] MEDS: QUEtiapine 50 MG TAB PO SCH (21:21)
[2021-02-15] MEDS: LEVOTHYROXINE 100 MCG TAB PO SCH (05:51)
[2021-02-15] MEDS: ALBUTEROL HFA INHALER INHALATION PRN ×4 (07:32→19:28)
[2021-02-15 07:52] LABS: Anisocytosis Moderate; HCT 21.1 % (39.0-53.0); HGB 7.2 gm/dL (13.0-17.5); MCH 34.9 pg (25.0-35.0); MCV 102.6 fL (80.0-100.0); Macrocytosis Marked; Platelet Count 80 k/uL (150-450); Poikilocytosis Slight; RBC 2.05 m/uL (4.30-5.90); RDW 20.8 % (11.5-15.5); WBC 4.5 k/uL (3.8-10.6)
[2021-02-15] MEDS: PANTOPRAZOLE 40 MG/10 ML VIAL IV SCH (08:52)
[2021-02-15] MEDS: FOLIC ACID 1 MG TAB PO SCH (08:52)
[2021-02-15] MEDS: POTASSIUM CHLORIDE ER 10 MEQ TAB.ER.PRT PO SCH ×2 (08:52→20:49)
[2021-02-15] MEDS: THIAMINE 100 MG TAB PO SCH (08:52)
[2021-02-15] MEDS: MAGNESIUM OXIDE 400 MG TAB PO SCH ×2 (08:52→20:48)
[2021-02-15] MEDS: FERROUS SULFATE 325 MG TAB PO SCH ×2 (08:52→20:49)
[2021-02-15] MEDS: NICOTINE 14MG/24HR PATCH TRANSDERM SCH (08:53)
[2021-02-15] MEDS: HYDROcodone/APAP 10-325MG 1 EACH TAB PO PRN ×3 (09:04→23:46)
[2021-02-15 09:15] LABS: Band Neutrophils % 4 %; Eosinophils # (M) 0.05 k/uL (0-0.7); Lymphocytes # (M) 0.32 k/uL (1.0-4.8); Monocytes # (M) 0.36 k/uL (0-1.0); Myelocytes # (M) 0.05 k/uL (0); Myelocytes % 1 %; Neutrophils % (M) 82 %; Nucleated Red Blood Cells 0 /100 WBC (0-0); Total Cells Counted 200
[2021-02-15 09:16] LABS: Poikilocytosis (M) Present
--- NOTE | 2021-02-15 10:50 | P.PN ---
Subjective This is a pleasant 65-year-old male past medical history significant for pancytopenia, hypertension, chronic Alcohol use since age of 15, chronic tobacco abuse, anemia, GI bleed, paroxysmal atrial fibrillation (was on Eliquis but discontinued due to GI bleed), moderate to severe mitral regurgitation (CARROLL completed in 06/2020), diastolic heart failure, pulmonary hypertension. He follows in the office with Dr. Daigle. We have been asked to see in consultation for "known to patient, and cardiac catheterization scheduled this week". Patient presented to the emergency department with worsening weakness, tiredness, and decreased strength. He denies any chest pain, shortness of breath, lightheadedness, dizziness, palpitations. He denies any symptoms of orthopnea or PND. He currently is still drinking alcohol about 3-4 beers/day. On admission, he was found to have a hemoglobin of 6.8, given 2 units of PRBCs. He denies any blood in his stool. Patient admitted multiple times for GI bleed/anemia. In 08/2020 he underwent an EGD and colonoscopy by Dr. Jamesania findings of antral gastritis and polypectomy. 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 Also in 10/2020 he underwent a push enteroscopy by Dr. Power 5 nonbleeding AVMs in the distal duodenum and proximal jejunum treated with argon plasma coagulation therapy. Repeat echo in the office on 01/30/2021 revealed EF of 55%, moderate mitral regurgitation, torrential tricuspid regurgitation, with severely elevated RVSP of 102. Due to concern for worsening pulmonary hypertension, Dr. Daigle scheduled for patient to undergo right heart catheterization as well as left heart catheterization scheduled on 02/13. 02/13/2021 Patient seen and examined at bedside, no acute distress. He states he continues to feel weak. His nausea has improved. Denies any chest pain or shortness of breath. He underwent another blood unit transfusion yesterday. Labs reviewed, WBC 1.0, hemoglobin 6.8, platelets 85, BMP pending. He's currently maintained on ferrous sulfate, Lasix PO 40mg daily, metoprolol tartrate 40 mg daily. Telemetry reviewed patient in nature fibrillation with controlled ventricular rates. 02/14 Continue examined. Patient denies any chest pain or pressure. He admits he did feel somewhat worse yesterday however feeling somewhat improved today. He did receive transfusion with hemoglobin up in the eights today. He also underwent paracentesis yesterday as well as EGD which showed non bleeding AV malformations with coagulation of these performed. 02/15 Seen and examined. Patient's blood pressure borderline with systolics in the 80s and therefore some of blood pressure medications a been held. He has not been eating much or drinking much. Denies any orthopnea. Heart rates have been well controlled. PHYSICAL EXAMINATION Vitals removed CONSTITUTIONAL: No apparent distress. Obese HEENT: Neck Supple. No JVD. CHEST EXAMINATION: Lungs are clear to auscultation. No chest wall tenderness is noted on palpation or with deep breathing. HEART EXAMINATION: Irregular rate and rhythm. S1, S2 heard. Systolic ejection murmur ABDOMEN: Soft, nontender. Positive bowel sounds. EXTREMITIES: 2+ peripheral pulses, bilateral moderate lower extremity edema and no calf tenderness. SKIN: Jaundice, pale NEUROLOGIC EXAMINATION: Patient is awake, alert and oriented x3. ASSESSMENT Pancytopenia Anemia s/p 3 units of PRBC Chronic alcohol abuse Liver Cirrhosis Moderate to severe mitral regurgitation Pulmonary Hypertension Severe Tricuspid regurgitation, with severely elevated RVSP of 102 Hyperlipidemia Paroxysmal atrial fibrillation, not on anticoagulation due to anemia Tobacco abuse Chronic diastolic heart failure Hyponatremia Hypomagnesemia PLAN Heart catheterization have been recommended to evaluate degree of pulmonary hypertension which appeared out of proportion to long and heart disease. May be component from his mitral regurgitation however also concern of possible primary pulmonary hypertension. We will defer heart catheterization at this time however. Patient's blood pressure has declined and and do not feel currently appears volume overloaded. We will stop his Lasix. We had added her body oh however this may also been causing some of the hypotension and we will discontinue. Await until possibly able to do heart catheterization however would optimize other anemia, pancytopenia, liver disease before entertaining catheterization. Objective - Vital Signs Vital signs: Vital Signs Temp 98.7 F 02/15/21 04:28 Pulse 82 02/15/21 08:57 Resp 18 02/15/21 04:28 BP 98/62 02/15/21 08:57 Pulse Ox 92 L 02/15/21 04:28 Intake & Output 02/14/21 02/15/21 02/15/21 19:59 06:59 18:59 Intake Total Output Total Balance Intake: Oral Output: Stool Other: Voiding Method # Voids # Bowel Movements - Labs CBC & Chem 7: 02/15/21 06:08 02/14/21 07:09 Labs: Abnormal Lab Results - Last 24 Hours (Table) 02/14/21 02/15/21 Range/Units 07:09 06:08 RBC 2.05 L (4.30-5.90) m/uL Hgb 7.2 L (13.0-17.5) gm/dL Hct 21.1 L (39.0-53.0) % MCV 102.6 H (80.0-100.0) fL RDW 20.8 H (11.5-15.5) % Plt Count 80 L (150-450) k/uL Lymphocytes # (Manual) 0.32 L (1.0-4.8) k/uL Myelocytes # (Manual) 0.05 H (0) k/uL Macrocytosis Marked A Sodium 132 L (135-145) mmol/L Carbon Dioxide 18.1 L (21.6-31.8) mmol/L Anion Gap 13.90 H (4.00-12.00) mmol/L Total Bilirubin 4.80 H (0.30-1.20) mg/dL Alkaline Phosphatase 265 H (41-126) U/L Total Protein 5.3 L (6.2-8.2) g/dL Albumin 3.6 L (3.8-4.9) g/dL Microbiology - Last 24 Hours (Table) 02/13/21 12:30 Acid Fast Bacilli Smear - Final Abdominal Fluid Acid Fast Bacilli Culture - Preliminary 02/13/21 12:30 Gram Stain - Preliminary Ascites Fluid Body Fluid Culture - Preliminary
[2021-02-15] MEDS: FUROSEMIDE 40 MG TAB PO SCH (10:51)
[2021-02-15] MEDS: SILDENAFIL 20 MG TAB PO SCH (10:52)
[2021-02-15 11:05] LABS: African American GFR (CKD) 41.7 (60.0-200.0); Anion Gap 12.2 mmol/L (4.00-12.00); BUN/Creat Ratio 14.68 Ratio (12.00-20.00); Blood Urea Nitrogen 27.9 mg/dL (9.0-27.0); Calcium 8.5 mg/dL (8.7-10.3); Carbon Dioxide 17.8 mmol/L (21.6-31.8); Non-African American GFR(CKD) 35.9 (60.0-200.0); Potassium 4.3 mmol/L (3.5-5.5)
[2021-02-15] MEDS ORDERED: traMADol 50 MG TAB PO PRN (15:17)
[2021-02-15] MEDS: QUEtiapine 50 MG TAB PO SCH (20:49)
--- NOTE | 2021-02-15 23:39 | P.PN ---
Subjective Progress Note Date: 02/14/21 This is a pleasant 65-year-old male was recently hospitalized for acute GI bleed found to have arterial venous malformations and at that time patient underwent upper GI endoscopy colonoscopy push enteroscopy as well as capsule endoscopy, patient does have history of atrial fibrillation as an anti-correlation which was held and patient was discharged at that time. Patient is presently not on any anticoagulation or antiplatelet therapy with came in with very low hemoglobin generalized tiredness and weakness and found to have hemoglobin of 6.8 because of which patient was sent to the hospital. Patient does have pancytopenia directed have history of alcohol abuse and believed to have bone marrow suppression. Patient does have distention of the abdomen and may have ascites supposed to get an outpatient ultrasound today. Patient also has very low magnesium of 0.8. Patient is also hyponatremic his medications are not verified appears to be on Lasix for cirrhosis and volume overload secondary to that. Patient had normal ejection fraction the past patient is supposed to get cardiac catheterization as an outpatient this Tuesday. She does admit to having diarrhea and multiple or Doxil stress today and one episode of Doxil today. Gastric body will be consulted. 02/11/2021 Patient evaluated today resting in bed. He does report some diarrhea, he denies any blood in the stool. His hemoglobin today 7 status post 2 units of PRBC. Additional labs included white count of 1, RBC 1.94, platelet count of 100. Neutrophils are elevated at 0.39. Labs today show a magnesium of 1.4. Patient does report drinking a couple beers a day for many years. GI services consulted hematology for the pancytopenia. Cardiology consultation. Patient was planned for a right and left cardiac catheterization on Tuesday due to severely elevated RVSP of 102 found on echocardiogram. 02/12/21 Hemoglobin today came back at 6.5 we did transfuse 1 more unit of PRBCs. Additional labs included WBC of 1, RBC 1.78, hematocrit critical 18.7, there were no platelet counts available for today. Metabolic panel still pending. Ordered a paracentesis from IR for abdominal ascites on ultrasound. Vital show a blood pressure 104/64, afebrile. Pending consultation from hematology services. Repeat labs in the morning. 02/13/2021 Hemoglobin is 6.8 today and he is transfusing 1 unit of PRBCs. Additional labs are white blood cell count 1.1, platelet 85, INR today 1.1. Sodium levels 132 magnesium 1.7, potassium 4.1. Alk phos increased to 247, total bili 2.7, albumin is 5.1. Folate was found to be 3.8, was started on oral replacement from hematology. Paracentesis was completed at the bedside this afternoon. Recent EGD/colonoscopy in August 2020 showed antral gastritis and polypectomy. 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 Patient is frustrated and not underst anding why his blood counts are continuing to be low. He denies that this is because of his chronic alcohol abuse. Apparently has not followed up as recommended in the office with hematology services for iron transfusions. Patient continues in A. fib, rate controlled he is on metoprolol and Lasix and iron. Cardiac catheterization is still on hold due to ongoing anemia. Plan is for an EGD today. Blood pressure 108/71, afebrile, 98% on room air. 02/14/2021 Patient is lying in the bed comfortably. Still complains of generalized weakness. Nausea improved. Denies any complaints of chest pain or shortness of breath. Patient underwent EGD yesterday showed scattered nonbleeding gastric and duodenal AV malformation status post argon plasma coagulation. Mild antral gastritis. Laboratory data showed WBC 2.7, hemoglobin 8.2. Platelets 96 other laboratory data reviewed. Patient is being continued iron supplementation, PPI. Patient is being current nadolol as per cardiology recommendations. ROS Constitutional: Denied any fatigue denied any fever. Cardio vascular: denied any chest pain, palpitations Gastrointestinal denied any nausea vomiting, reports loose stool, denies blood in the stool Pulmonary: Denied any shortness of breath cough Neurologic denied any new focal deficits All inpatient medications were reviewed and appropriate changes in these medications as dictated in the interval history and assessment and plan. Objective - Vital Signs Vital signs: Vital Signs Temp 98.1 F 02/14/21 20:28 Pulse 76 02/14/21 20:28 Resp 18 02/14/21 20:28 BP 104/60 02/14/21 20:28 Pulse Ox 90 L 02/14/21 20:28 Intake & Output 02/14/21 02/14/2121 06:59 18:59 05:59 Intake Total 240 1300 Output Total 300 0 Balance -60 1300 0 Intake: Oral 240 1300 Output: Urine 300 Stool 0 Other: Voiding Method Toilet Toilet Urinal Diaper # Voids 2 4 # Bowel Movements 2 1 1 - Exam PHYSICAL EXAMINATION: GENERAL: The patient is alert and oriented x3, not in any acute distress. Well developed, well nourished. HEENT: Pupils are round and equally reacting to light. EOMI. No scleral icterus. Does have conjunctival pallor . Normocephalic, atraumatic. No pharyngeal erythema. No thyromegaly. CARDIOVASCULAR: S1 and S2 present. No murmurs, rubs, or gallops. PULMONARY: Chest is clear to auscultation, no wheezing or crackles. ABDOMEN: Soft, nontender, distended with fluid shift normoactive bowel sounds. No palpable organomegaly. MUSCULOSKELETAL: No joint swelling or deformity. EXTREMITIES: No cyanosis, clubbing, bilateral lower extremity edema NEUROLOGICAL: Gross neurological examination did not reveal any focal deficits. SKIN: No rashes. - Labs CBC & Chem 7: 02/15/21 06:08 02/15/21 06:08 Labs: Abnormal Lab Results - Last 24 Hours (Table) 02/14/21 02/14/21 Range/Units 07:09 07:09 WBC 2.7 L (3.8-10.6) k/uL RBC 2.38 L (4.30-5.90) m/uL Hgb 8.2 L (13.0-17.5) gm/dL Hct 24.1 L (39.0-53.0) % MCV 101.6 H (80.0-100.0) fL RDW 20.9 H (11.5-15.5) % Plt Count 96 L (150-450) k/uL Lymphocytes # (Manual) 0.32 L (1.0-4.8) k/uL Sodium 132 L (135-145) mmol/L Carbon Dioxide 18.1 L (21.6-31.8) mmol/L Anion Gap 13.90 H (4.00-12.00) mmol/L Total Bilirubin 4.80 H (0.30-1.20) mg/dL Alkaline Phosphatase 265 H (41-126) U/L Total Protein 5.3 L (6.2-8.2) g/dL Albumin 3.6 L (3.8-4.9) g/dL Microbiology - Last 24 Hours (Table) 02/13/21 12:30 Gram Stain - Preliminary Ascites Fluid Body Fluid Culture - Preliminary 02/13/21 12:30 Acid Fast Bacilli Culture - Preliminary Abdominal Fluid 02/13/21 12:30 Anaerobic Culture - Preliminary Ascites Fluid 02/13/21 12:30 Fungal Culture - Preliminary Abdominal Fluid Assessment and Plan Assessment: Assessment and plan -Anemia secondary to acute upper GI bleed from an AV malformation, hgb 6.8 - s/p transfuse 1 u prbc . - has received 4 units total, s/p Repeat EGD on 02/13 -Hyponatremia appears to be hypervolemic hyponatremia from cirrhosis. improved. on oral Lasix -Paroxysmal atrial fibrillation, not on anticoagulation due to anemia -Hypomagnesemia: Probably due to chronic alcohol abuse, replace per protocol we will add oral magnesium daily. -Nicotine use: Counseling was provided -Pulmonary hypertension - was scheduled for outpatient right and left cath on Tuesday 02/13, which is now on hold due to anemia. -Moderate to severe mitral regurgitation -Chronic diastolic congestive heart failure current EF is 55%, not in acute exacerbation -Chronic alcohol abuse -Volume overload secondary to cirrhosis, paracentesis ordered for today -Hypertension -Hypothyroidism DVT prophylaxis: No pharmacological anticoagulation because of GI bleed Cardiology will hold off on catheterization for now. Repeat labs in the morning. Replace electrolytes per protocol. Time with Patient: Greater than 30
--- NOTE | 2021-02-15 23:43 | P.PN ---
Subjective Progress Note Date: 02/15/21 This is a pleasant 65-year-old male was recently hospitalized for acute GI bleed found to have arterial venous malformations and at that time patient underwent upper GI endoscopy colonoscopy push enteroscopy as well as capsule endoscopy, patient does have history of atrial fibrillation as an anti-correlation which was held and patient was discharged at that time. Patient is presently not on any anticoagulation or antiplatelet therapy with came in with very low hemoglobin generalized tiredness and weakness and found to have hemoglobin of 6.8 because of which patient was sent to the hospital. Patient does have pancytopenia directed have history of alcohol abuse and believed to have bone marrow suppression. Patient does have distention of the abdomen and may have ascites supposed to get an outpatient ultrasound today. Patient also has very low magnesium of 0.8. Patient is also hyponatremic his medications are not verified appears to be on Lasix for cirrhosis and volume overload secondary to that. Patient had normal ejection fraction the past patient is supposed to get cardiac catheterization as an outpatient this Tuesday. She does admit to having diarrhea and multiple or Doxil stress today and one episode of Doxil today. Gastric body will be consulted. 02/11/2021 Patient evaluated today resting in bed. He does report some diarrhea, he denies any blood in the stool. His hemoglobin today 7 status post 2 units of PRBC. Additional labs included white count of 1, RBC 1.94, platelet count of 100. Neutrophils are elevated at 0.39. Labs today show a magnesium of 1.4. Patient does report drinking a couple beers a day for many years. GI services consulted hematology for the pancytopenia. Cardiology consultation. Patient was planned for a right and left cardiac catheterization on Tuesday due to severely elevated RVSP of 102 found on echocardiogram. 02/12/21 Hemoglobin today came back at 6.5 we did transfuse 1 more unit of PRBCs. Additional labs included WBC of 1, RBC 1.78, hematocrit critical 18.7, there were no platelet counts available for today. Metabolic panel still pending. Ordered a paracentesis from IR for abdominal ascites on ultrasound. Vital show a blood pressure 104/64, afebrile. Pending consultation from hematology services. Repeat labs in the morning. 02/13/2021 Hemoglobin is 6.8 today and he is transfusing 1 unit of PRBCs. Additional labs are white blood cell count 1.1, platelet 85, INR today 1.1. Sodium levels 132 magnesium 1.7, potassium 4.1. Alk phos increased to 247, total bili 2.7, albumin is 5.1. Folate was found to be 3.8, was started on oral replacement from hematology. Paracentesis was completed at the bedside this afternoon. Recent EGD/colonoscopy in August 2020 showed antral gastritis and polypectomy. 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 Patient is frustrated and not underst anding why his blood counts are continuing to be low. He denies that this is because of his chronic alcohol abuse. Apparently has not followed up as recommended in the office with hematology services for iron transfusions. Patient continues in A. fib, rate controlled he is on metoprolol and Lasix and iron. Cardiac catheterization is still on hold due to ongoing anemia. Plan is for an EGD today. Blood pressure 108/71, afebrile, 98% on room air. 02/14/2021 Patient is lying in the bed comfortably. Still complains of generalized weakness. Nausea improved. Denies any complaints of chest pain or shortness of breath. Patient underwent EGD yesterday showed scattered nonbleeding gastric and duodenal AV malformation status post argon plasma coagulation. Mild antral gastritis. Laboratory data showed WBC 2.7, hemoglobin 8.2. Platelets 96 other laboratory data reviewed. Patient is being continued iron supplementation, PPI. Patient is being current nadolol as per cardiology recommendations. 02/15/2021 Patient is currently lying in the bed. Complains of generalized weakness and dizziness with walking. Patient's blood pressure is on the lower side with systolic in 80s. Blood pressure medications are on hold and currently being continued nadolol only. No complaints of chest pain or shortness of breath. No headache or dizziness or lightheadedness. Laboratory data showed hemoglobin 7.2 today. Platelets 80 and WBC went up to 4.5. Sodium 129 potassium 4.3 chloride 99 bicarbonate 17.8 anion gap 12.2 and BUN 27.9 and creatinine 1.9 today. Cardiology recommends to hold off on cardiac catheterization to assess for severity of pulmonary hypertension due to significant anemia and pancytopenia and hypotension and other multiple medical problems. ROS Constitutional: Denied any fatigue denied any fever. Cardio vascular: denied any chest pain, palpitations Gastrointestinal denied any nausea vomiting, reports loose stool, denies blood in the stool Pulmonary: Denied any shortness of breath cough Neurologic denied any new focal deficits All inpatient medications were reviewed and appropriate changes in these medications as dictated in the interval history and assessment and plan. Objective - Vital Signs Vital signs: Vital Signs Temp 97.4 F L 02/15/21 13:00 Pulse 91 02/15/21 15:30 Resp 18 02/15/21 13:00 BP 99/65 02/15/21 15:30 Pulse Ox 96 02/15/21 13:00 Intake & Output 02/14/21 02/15/21 02/15/21 19:59 06:59 18:59 Intake Total 1820 Output Total 0 Balance 1820 Intake: Oral 1820 Output: Stool 0 Other: Voiding Method Urinal Diaper # Voids 5 # Bowel Movements - Exam PHYSICAL EXAMINATION: GENERAL: The patient is alert and oriented x3, not in any acute distress. Well developed, well nourished. HEENT: Pupils are round and equally reacting to light. EOMI. No scleral icterus. Does have conjunctival pallor . Normocephalic, atraumatic. No pharyngeal erythema. No thyromegaly. CARDIOVASCULAR: S1 and S2 present. + systolic murmur, rubs, or gallops. PULMONARY: Chest is clear to auscultation, no wheezing or crackles. ABDOMEN: Soft, nontender, distended with fluid shift normoactive bowel sounds. No palpable organomegaly. MUSCULOSKELETAL: No joint swelling or deformity. EXTREMITIES: No cyanosis, clubbing, bilateral lower extremity edema NEUROLOGICAL: Gross neurological examination did not reveal any focal deficits. SKIN: No rashes. - Labs CBC & Chem 7: 02/15/21 06:08 02/15/21 06:08 Labs: Abnormal Lab Results - Last 24 Hours (Table) 02/15/21 02/15/21 Range/Units 06:08 06:08 RBC 2.05 L (4.30-5.90) m/uL Hgb 7.2 L (13.0-17.5) gm/dL Hct 21.1 L (39.0-53.0) % MCV 102.6 H (80.0-100.0) fL RDW 20.8 H (11.5-15.5) % Plt Count 80 L (150-450) k/uL Lymphocytes # (Manual) 0.32 L (1.0-4.8) k/uL Myelocytes # (Manual) 0.05 H (0) k/uL Macrocytosis Marked A Sodium 129 L (135-145) mmol/L Carbon Dioxide 17.8 L (21.6-31.8) mmol/L Anion Gap 12.20 H (4.00-12.00) mmol/L BUN 27.9 H (9.0-27.0) mg/dL Creatinine 1.9 H (0.6-1.5) mg/dL Est GFR (CKD-EPI)AfAm 41.7 L (60.0-200.0) Est GFR (CKD-EPI)NonAf 35.9 L (60.0-200.0) Calcium 8.5 L (8.7-10.3) mg/dL Microbiology - Last 24 Hours (Table) 02/12/21 14:20 Stool Culture - Final Stool 02/13/21 12:30 Acid Fast Bacilli Smear - Final Abdominal Fluid Acid Fast Bacilli Culture - Preliminary 02/13/21 12:30 Gram Stain - Preliminary Ascites Fluid Body Fluid Culture - Preliminary Assessment and Plan Assessment: Assessment and plan -Anemia secondary to acute upper GI bleed from an AV malformation, hgb 6.8 - s/p transfuse 1 u prbc . - has received 4 units total, s/p Repeat EGD on 02/13 -Hyponatremia appears to be hypervolemic hyponatremia from cirrhosis. -Paroxysmal atrial fibrillation, not on anticoagulation due to anemia -Hypomagnesemia: Probably due to chronic alcohol abuse, replace per protocol we will add oral magnesium daily. -Nicotine use: Counseling was provided -Pulmonary hypertension - was scheduled for outpatient right and left cath on Tuesday 02/13, which is now on hold due to anemia. -Moderate to severe mitral regurgitation -Chronic diastolic congestive heart failure current EF is 55%, not in acute exacerbation -Chronic alcohol abuse -Volume overload secondary to cirrhosis, paracentesis ordered for today -Hypertension -Hypothyroidism DVT prophylaxis: No pharmacological anticoagulation because of GI bleed Time with Patient: Greater than 30
[2021-02-16] MEDS: LEVOTHYROXINE 100 MCG TAB PO SCH (05:34)
[2021-02-16] MEDS: HYDROcodone/APAP 10-325MG 1 EACH TAB PO PRN ×3 (05:51→22:57)
[2021-02-16 07:02] LABS: Anisocytosis Moderate; Basophils % (A) 0 %; Eosinophils # (A) 0.1 k/uL (0-0.7); Eosinophils % (A) 1 %; HCT 20.4 % (39.0-53.0); Lymphocytes # (A) 0.4 k/uL (1.0-4.8); Lymphocytes % (A) 10 %; MCH 34.6 pg (25.0-35.0); MCHC 33.8 g/dL (31.0-37.0); MCV 102.2 fL (80.0-100.0); Macrocytosis Marked; Mean Platelet Volume 10.2; Monocytes # (A) 0.2 k/uL (0-1.0); Monocytes % (A) 6 %; Neutrophils # (A) 3.3 k/uL (1.3-7.7); Neutrophils % (A) 82 %; Platelet Count 83 k/uL (150-450); Poikilocytosis Slight; RBC 1.99 m/uL (4.30-5.90); RDW 20.8 % (11.5-15.5); WBC 4.1 k/uL (3.8-10.6)
[2021-02-16 07:03] LABS: HGB 6.9 gm/dL (13.0-17.5)
[2021-02-16] MEDS: FOLIC ACID 1 MG TAB PO SCH (07:33)
[2021-02-16] MEDS: THIAMINE 100 MG TAB PO SCH (07:33)
[2021-02-16] MEDS: FERROUS SULFATE 325 MG TAB PO SCH ×2 (07:33→20:33)
[2021-02-16] MEDS: PANTOPRAZOLE 40 MG/10 ML VIAL IV SCH (07:33)
[2021-02-16] MEDS: MAGNESIUM OXIDE 400 MG TAB PO SCH ×2 (07:33→20:33)
[2021-02-16] MEDS: POTASSIUM CHLORIDE ER 10 MEQ TAB.ER.PRT PO SCH ×2 (07:34→20:33)
[2021-02-16] MEDS: NICOTINE 14MG/24HR PATCH TRANSDERM SCH (08:11)
[2021-02-16] MEDS: ALBUTEROL HFA INHALER INHALATION PRN ×4 (08:12→20:07)
[2021-02-16] MEDS ORDERED: FUROSEMIDE 10 MG/ML 4 ML VIAL IV STA (09:31)
--- NOTE | 2021-02-16 10:36 | P.PN ---
Subjective This is a pleasant 65-year-old male past medical history significant for pancytopenia, hypertension, chronic Alcohol use since age of 15, chronic tobacco abuse, anemia, GI bleed, paroxysmal atrial fibrillation (was on Eliquis but discontinued due to GI bleed), moderate to severe mitral regurgitation (CARROLL completed in 06/2020), diastolic heart failure, pulmonary hypertension. He follows in the office with Dr. Daigle. We have been asked to see in consultation for "known to patient, and cardiac catheterization scheduled this week". Patient presented to the emergency department with worsening weakness, tiredness, and decreased strength.. He currently is still drinking alcohol about 3-4 beers/day. On admission, he was found to have a hemoglobin of 6.8. Repeat echo in the office on 01/30/2021 revealed EF of 55%, moderate mitral regurgitation, torrential tricuspid regurgitation, with severely elevated RVSP of 102. Due to concern for worsening pulmonary hypertension, Dr. Daigle scheduled for patient to undergo right heart catheterization as well as left heart catheterization scheduled on 02/13 and has been cancelled due to anemia. He underwent EGD on 02/13 which revealed scattered nonbleeding gastric and duodenal AVM status post her then plasma coagulation, mild antral gastritis. Patient seen and examined at bedside, no acute distress. He is overall feeling well. Denies any chest pain or shortness of breath. He has undergone a total of 4 blood transfusions this admission, with 1 unit PRBC for today. Labs reviewed, WBC 4.1, hemoglobin 6.9, platelets 83, BMP pending. He's currently maintained on ferrous sulfate, nadolol 40 mg daily. Telemetry reviewed patient in nature fibrillation with controlled ventricular rates. PHYSICAL EXAMINATION Blood pressure 94/64, heart rate 88, afebrile maintaining saturations on room air CONSTITUTIONAL: No apparent distress. Obese HEENT: Neck Supple. No JVD. CHEST EXAMINATION: Lungs are clear to auscultation. No chest wall tenderness is noted on palpation or with deep breathing. HEART EXAMINATION: Irregular rate and rhythm. S1, S2 heard. Systolic ejection murmur ABDOMEN: Soft, nontender. Positive bowel sounds. EXTREMITIES: 2+ peripheral pulses, bilateral moderate lower extremity edema and no calf tenderness. SKIN: Jaundice, pale NEUROLOGIC EXAMINATION: Patient is awake, alert and oriented x3. ASSESSMENT Pancytopenia Anemia s/p 4 units of PRBC Chronic alcohol abuse Liver Cirrhosis Moderate to severe mitral regurgitation Pulmonary Hypertension Severe Tricuspid regurgitation, with severely elevated RVSP of 102 Hyperlipidemia Paroxysmal atrial fibrillation, not on anticoagulation due to anemia Tobacco abuse Chronic diastolic heart failure Hyponatremia Hypomagnesemia PLAN -We will continue to hold off on cardiac catheterization at this time due to anemia -Plan for 1unit of PRBC today -No anticoagulation -Hematology/Oncology following -Hold lisinopril and amlodipine due to hypotension -Patient's blood pressure has declined and and do not feel currently appears volume overloaded, continue to hold Lasix -Alcohol and tobacco cessation discussed and highly recommended with patient -From a cardiology perspecitve, we will follow the patient as needed. please reach out with further questions or concerns. -Would optimize other anemia, pancytopenia, liver disease before entertaining catheterization. Patient can follow up with Dr. Daigle in the office. Nurse Practitioner note has been reviewed, I agree with a documented findings and plan of care. Patient was seen and examined. Objective - Vital Signs Vital signs: Vital Signs Temp 97.7 F 02/16/21 04:41 Pulse 88 02/16/21 04:41 Resp 16 02/16/21 04:41 BP 94/64 02/16/21 04:41 Pulse Ox 99 02/16/21 04:41 Intake & Output 02/15/21 02/16/21 02/16/21 18:59 06:59 18:59 Intake Total 1820 300 Output Total 0 Balance 1820 300 Intake: Oral 1820 300 Output: Stool 0 Other: Voiding Method Urinal Diaper Diaper Diaper # Voids 5 2 # Bowel Movements 1 - Labs CBC & Chem 7: 02/16/21 05:31 02/15/21 06:08 Labs: Abnormal Lab Results - Last 24 Hours (Table) 02/15/21 02/16/21 02/16/21 Range/Units 06:08 05:31 07:17 RBC 1.99 L (4.30-5.90) m/uL Hgb 6.9 L* (13.0-17.5) gm/dL Hct 20.4 L (39.0-53.0) % MCV 102.2 H (80.0-100.0) fL RDW 20.8 H (11.5-15.5) % Plt Count 83 L (150-450) k/uL Lymphocytes # 0.4 L (1.0-4.8) k/uL Macrocytosis Marked A Sodium 129 L (135-145) mmol/L Carbon Dioxide 17.8 L (21.6-31.8) mmol/L Anion Gap 12.20 H (4.00-12.00) mmol/L BUN 27.9 H (9.0-27.0) mg/dL Creatinine 1.9 H (0.6-1.5) mg/dL Est GFR (CKD-EPI)AfAm 41.7 L (60.0-200.0) Est GFR (CKD-EPI)NonAf 35.9 L (60.0-200.0) Calcium 8.5 L (8.7-10.3) mg/dL Crossmatch See Detail Microbiology - Last 24 Hours (Table) 02/13/21 12:30 Anaerobic Culture - Preliminary Ascites Fluid 02/13/21 12:30 Gram Stain - Preliminary Ascites Fluid Body Fluid Culture - Preliminary 02/12/21 14:20 Stool Culture - Final Stool
[2021-02-16 11:27] LABS: African American GFR (CKD) 32.1 (60.0-200.0); Anion Gap 12.7 mmol/L (4.00-12.00); BUN/Creat Ratio 16.02 Ratio (12.00-20.00); Blood Urea Nitrogen 37.8 mg/dL (9.0-27.0); Calcium 8.6 mg/dL (8.7-10.3); Carbon Dioxide 18.1 mmol/L (21.6-31.8); Non-African American GFR(CKD) 27.7 (60.0-200.0); Potassium 4.4 mmol/L (3.5-5.5)
--- NOTE | 2021-02-16 12:44 | XR ---
EXAMINATION TYPE: XR chest 1V portable DATE OF EXAM: 02/16/2021 COMPARISON: 02/10/2021 HISTORY: Shortness of breath TECHNIQUE: Single frontal view of the chest is obtained. FINDINGS: Heart is enlarged and there is underlying hyperinflation. No sizable pleural effusion. The re is patchy left perihilar infiltrate. No pneumothorax. IMPRESSION: 1. Severe cardiomegaly 2. Patchy left perihilar infiltrate correlate for asymmetric pulmonary edema versus developing pneumo marie.
--- NOTE | 2021-02-16 16:09 | P.PN ---
Subjective Progress Note Date: 02/16/21 This is a 65-year-old gentleman admitted with anemia secondary to acute upper GI bleed from AV malformation, hyponatremia, proximal atrial fibrillation, and multiple other medical issues. Hemoglobin 6.8,1 unit of packed RBCs ordered. Anticoagulation on hold at this time . Hematology following .borderline hypotension with Lasix, Norvasc and YOLANDA inhibitor on hold. Worsening renal function with creatinine up to 2.4. Denies chest pain, palpitations or increasing shortness of breath. Chest x-ray reporting patchy left perihilar infiltrate, correlate for asymmetric pulmonary edema versus developing pne umonia. Maintaining O2 sats in the 90s on room air. Afebrile, normal WBC. Ascites cultures/cytology pending. Sodium 128. Objective - Vital Signs Vital signs: Vital Signs Temp 98.4 F 02/16/21 13:09 Pulse 58 L 02/16/21 13:09 Resp 16 02/16/21 13:09 BP 81/58 02/16/21 13:09 Pulse Ox 92 L 02/16/21 13:09 Intake & Output 02/15/21 02/16/21 02/16/21 18:59 06:59 18:59 Intake Total 1820 300 0 Output Total 0 Balance 1820 300 0 Intake: Oral 1820 300 Blood Product 0 Rc As-1 Unit 0 [id number] Output: Stool 0 Other: Voiding Method Urinal Diaper Diaper Diaper # Voids 5 2 # Bowel Movements 1 - Exam PHYSICAL EXAMINATION: GENERAL: The patient is alert and oriented x3, not in any acute distress. Well developed, well nourished. HEENT: Pupils are round and equally reacting to light. EOMI. No scleral icterus. Does have conjunctival pallor . Normocephalic, atraumatic. CARDIOVASCULAR: S1 and S2 present. Irregular, + systolic murmur, rubs, or gallops. PULMONARY: Chest is clear to auscultation, bibasilar crackles, no wheezing. ABDOMEN: Soft, nontender, distended with fluid shift normoactive bowel sounds. No palpable organomegaly. MUSCULOSKELETAL: No joint swelling or deformity. EXTREMITIES: No cyanosis, clubbing, positive bilateral lower extremity edema, no calf tenderness NEUROLOGICAL: Gross neurological examination did not reveal any focal deficits. SKIN: No rashes. Microbiology 02/13/21 12:30 Ascites Fluid Anaerobic Culture - Preliminary 02/13/21 12:30 Ascites Fluid Gram Stain - Preliminary 02/13/21 12:30 Ascites Fluid Body Fluid Culture - Preliminary 02/12/21 14:20 Stool Stool Culture - Final 02/13/21 12:30 Abdominal Fluid Acid Fast Bacilli Smear - Final 02/13/21 12:30 Abdominal Fluid Acid Fast Bacilli Culture - Preliminary 02/13/21 12:30 Abdominal Fluid Fungal Culture - Preliminary - Labs CBC & Chem 7: 02/16/21 05:31 02/16/21 05:31 Labs: Abnormal Lab Results - Last 24 Hours (Table) 02/16/21 02/16/21 02/16/21 Range/Units 05:31 05:31 07:17 RBC 1.99 L (4.30-5.90) m/uL Hgb 6.9 L* (13.0-17.5) gm/dL Hct 20.4 L (39.0-53.0) % MCV 102.2 H (80.0-100.0) fL RDW 20.8 H (11.5-15.5) % Plt Count 83 L (150-450) k/uL Lymphocytes # 0.4 L (1.0-4.8) k/uL Macrocytosis Marked A Sodium 128 L (135-145) mmol/L Carbon Dioxide 18.1 L (21.6-31.8) mmol/L Anion Gap 12.70 H (4.00-12.00) mmol/L BUN 37.8 H (9.0-27.0) mg/dL Creatinine 2.4 H (0.6-1.5) mg/dL Est GFR (CKD-EPI)AfAm 32.1 L (60.0-200.0) Est GFR (CKD-EPI)NonAf 27.7 L (60.0-200.0) Glucose 111 H (70-110) mg/dL Calcium 8.6 L (8.7-10.3) mg/dL Crossmatch See Detail Microbiology - Last 24 Hours (Table) 02/13/21 12:30 Anaerobic Culture - Preliminary Ascites Fluid 02/13/21 12:30 Gram Stain - Preliminary Ascites Fluid Body Fluid Culture - Preliminary 02/12/21 14:20 Stool Culture - Final Stool Assessment and Plan Assessment: -Anemia secondary to acute upper GI bleed from an AV malformation, s/p transfusion of 4 units of packed RBCs, s/p Repeat EGD on 02/13 -Hyponatremia appears to be hypervolemic hyponatremia from cirrhosis. -Paroxysmal atrial fibrillation, not on anticoagulation due to anemia -Hypomagnesemia: Probably due to chronic alcohol abuse, replace per protocol we will add oral magnesium daily. -Nicotine use: Counseling was provided -Pulmonary hypertension - was scheduled for outpatient right and left cath on Tuesday 02/13, which is now on hold due to anemia. -Moderate to severe mitral regurgitation -Chronic diastolic congestive heart failure current EF is 55% -Chronic alcohol abuse -Volume overload secondary to cirrhosis, paracentesis ordered for today -Hypertension -Hypothyroidism Plan: Continue on current medication regime ,monitoring and symptomatic treatment. One unit of packed RBCs ordered today. Close monitoring of CBC, sodium, renal function with repeat labs ordered for a.m. prognosis guarded given multiple complex medical issues. The impression and plan of care has been dictated as directed. : I performed a history and examination of this patient, discussed the same with the dictator. I agree with the dictator's note ,documented as a scribe. Any additional findings or plans will be noted.
--- NOTE | 2021-02-16 17:37 | P.PN ---
Subjective Progress Note Date: 02/16/21 GI evalaution revealed AVM in gastric body, Hemoglobin 6.9 today. Objective - Vital Signs Vital signs: Vital Signs Temp 97.8 F 02/16/21 12:59 Pulse 78 02/16/21 12:59 Resp 17 02/16/21 12:59 BP 94/56 02/16/21 12:59 Pulse Ox 99 02/16/21 12:59 Intake & Output 02/15/21 02/16/21 02/16/21 18:59 06:59 18:59 Intake Total 1820 300 0 Output Total 0 Balance 1820 300 0 Intake: Oral 1820 300 Blood Product 0 Rc As-1 Unit 0 [id number] Output: Stool 0 Other: Voiding Method Urinal Diaper Diaper Diaper # Voids 5 2 # Bowel Movements 1 - Exam - Constitutional General appearance: cooperative, no acute distress - EENT Eyes: EOMI ENT: hard of hearing, NA/AT - Neck Neck: normal ROM - Respiratory Respiratory: bilateral: diminished, rhonchi - Cardiovascular Rhythm: regularly irregular - Gastrointestinal General gastrointestinal: distended, soft - Integumentary Integumentary: jaundiced, pale - Neurologic non focal - Musculoskeletal Musculoskeletal: generalized weakness - Psychiatric Psychiatric: A&O x's 3, appropriate affect, intact judgment & insight - Labs CBC & Chem 7: 02/16/21 05:31 02/16/21 05:31 Labs: Abnormal Lab Results - Last 24 Hours (Table) 02/16/21 02/16/21 02/16/21 Range/Units 05:31 05:31 07:17 RBC 1.99 L (4.30-5.90) m/uL Hgb 6.9 L* (13.0-17.5) gm/dL Hct 20.4 L (39.0-53.0) % MCV 102.2 H (80.0-100.0) fL RDW 20.8 H (11.5-15.5) % Plt Count 83 L (150-450) k/uL Lymphocytes # 0.4 L (1.0-4.8) k/uL Macrocytosis Marked A Sodium 128 L (135-145) mmol/L Carbon Dioxide 18.1 L (21.6-31.8) mmol/L Anion Gap 12.70 H (4.00-12.00) mmol/L BUN 37.8 H (9.0-27.0) mg/dL Creatinine 2.4 H (0.6-1.5) mg/dL Est GFR (CKD-EPI)AfAm 32.1 L (60.0-200.0) Est GFR (CKD-EPI)NonAf 27.7 L (60.0-200.0) Glucose 111 H (70-110) mg/dL Calcium 8.6 L (8.7-10.3) mg/dL Crossmatch See Detail Microbiology - Last 24 Hours (Table) 02/13/21 12:30 Anaerobic Culture - Preliminary Ascites Fluid 02/13/21 12:30 Gram Stain - Preliminary Ascites Fluid Body Fluid Culture - Preliminary 02/12/21 14:20 Stool Culture - Final Stool Assessment and Plan (1) Ascites Current Visit: Yes Status: Acute Code(s): R18.8 - OTHER ASCITES SNOMED Code(s): 238457485 (2) GI AVM (gastrointestinal arteriovenous vascular malformation) Current Visit: No Status: Acute Code(s): K55.20 - ANGIODYSPLASIA OF COLON WITHOUT HEMORRHAGE SNOMED Code(s): 494666012 (3) Liver cirrhosis, alcoholic Current Visit: No Status: Acute Code(s): K70.30 - ALCOHOLIC CIRRHOSIS OF LIVER WITHOUT ASCITES SNOMED Code(s): 979911463 (4) Pancytopenia Current Visit: No Status: Acute Code(s): D61.818 - OTHER PANCYTOPENIA SNOMED Code(s): 076617916 (5) Paroxysmal atrial fibrillation with RVR Current Visit: No Status: Acute Code(s): I48.0 - PAROXYSMAL ATRIAL FIBRILLATION SNOMED Code(s): 3515630258 Plan: Nomi has a known history of alcohol induced cirrhosis which is primary etiology of his pancytopenia. He also has known history of GI blood loss anemia. he was suppose to follow-up after last admission for Parental iron infusions in office, however he had never answered or called our office back to confirm an appointment. We discussed this during our visit and the importance of follow-up. He continues with questions of "why his blood counts are low?" and How do we improve which leads me to think he is not truly understanding despite the alta conversation of needing to quite alcohol completely, blood loss anemia as a result and liver cirrohosis as contributing factor to his marrow suppression. At this time he has agreed to follow-up in office as recommended after discharge - Will add folic acid for low folate - related to poor nutrition from ETOH - Await MMA for B12 supplementation - Iron studies are adequate at this time, but unclear if iron studies can be interpretted as accurate given time of draw. With active AVMs in Gastric body there is high suspicion of iron deficiency related to GI blood loss ETOH Cessation Considering bone marrow biopsy if persists and/or worsens, especially if after cessation of ETOH Transfusion support to keep Hemoglobin greater than 7 Will review procedure with GI team and replace Iron if evidence of active bleeding Folic acid added Anemia GI blood loss anemia, if no bacteremia can move forward with IV Iron supplementation, continue to hold NSAIDS and AC therapies, Continue PPI
[2021-02-16] MEDS: QUEtiapine 50 MG TAB PO SCH (20:33)
[2021-02-17] MEDS: LEVOTHYROXINE 100 MCG TAB PO SCH (05:37)
[2021-02-17 06:28] LABS: Anisocytosis Slight; Basophils % (A) 0 %; Eosinophils % (A) 0 %; HGB 8.1 gm/dL (13.0-17.5); Hypochromasia Slight; Lymphocytes # (A) 0.4 k/uL (1.0-4.8); Lymphocytes % (A) 12 %; MCH 33.1 pg (25.0-35.0); MCHC 32.3 g/dL (31.0-37.0); MCV 102.5 fL (80.0-100.0); Macrocytosis Marked; Mean Platelet Volume 9.8; Monocytes # (A) 0.3 k/uL (0-1.0); Monocytes % (A) 9 %; Neutrophils # (A) 2.7 k/uL (1.3-7.7); Neutrophils % (A) 77 %; Platelet Count 83 k/uL (150-450); RBC 2.44 m/uL (4.30-5.90); RDW 19.9 % (11.5-15.5); WBC 3.5 k/uL (3.8-10.6)
[2021-02-17] MEDS: NICOTINE 14MG/24HR PATCH TRANSDERM SCH (07:56)
[2021-02-17] MEDS: FERROUS SULFATE 325 MG TAB PO SCH ×2 (08:02→21:22)
[2021-02-17] MEDS: PANTOPRAZOLE 40 MG/10 ML VIAL IV SCH (08:03)
[2021-02-17] MEDS: FOLIC ACID 1 MG TAB PO SCH (08:03)
[2021-02-17] MEDS: MAGNESIUM OXIDE 400 MG TAB PO SCH ×2 (08:03→21:22)
[2021-02-17] MEDS: THIAMINE 100 MG TAB PO SCH (08:03)
[2021-02-17] MEDS: POTASSIUM CHLORIDE ER 10 MEQ TAB.ER.PRT PO SCH ×2 (08:03→21:22)
[2021-02-17] MEDS: SODIUM FERRIC GLUCONAT-SUCROSE 125 MG in SODIUM CHLORIDE 0.9% 100 ML IVPB SCH (08:03)
[2021-02-17] MEDS: HYDROcodone/APAP 10-325MG 1 EACH TAB PO PRN ×3 (08:12→23:57)
[2021-02-17 09:15] VITALS: BMI 30.2
[2021-02-17] MEDS ORDERED: FUROSEMIDE 10 MG/ML 4 ML VIAL IV STA (09:31)
[2021-02-17] MEDS: ALBUTEROL HFA INHALER INHALATION PRN (11:06)
[2021-02-17 11:45] LABS: African American GFR (CKD) 51.3 (60.0-200.0); Albumin 3.3 g/dL (3.8-4.9); Albumin/Globulin Ratio 1.83 (1.60-3.17); Anion Gap 13.6 mmol/L (4.00-12.00); BUN/Creat Ratio 22.63 Ratio (12.00-20.00); Blood Urea Nitrogen 36.2 mg/dL (9.0-27.0); Calcium 8.7 mg/dL (8.7-10.3); Carbon Dioxide 17.4 mmol/L (21.6-31.8); Globulin 1.8 g/dL (1.6-3.3); Non-African American GFR(CKD) 44.2 (60.0-200.0); Potassium 4.2 mmol/L (3.5-5.5); Total Bilirubin 3.2 mg/dL (0.30-1.20); Total Protein 5.1 g/dL (6.2-8.2)
--- NOTE | 2021-02-17 12:21 | P.PN ---
Subjective Progress Note Date: 02/17/21 This is a 65-year-old gentleman admitted with anemia secondary to acute upper GI bleed from AV malformation, hyponatremia, proximal atrial fibrillation, and multiple other medical issues. Hemoglobin 6.8,1 unit of packed RBCs ordered. Anticoagulation on hold at this time . Hematology following .borderline hypotension with Lasix, Norvasc and YOLANDA inhibitor on hold. Worsening renal function with creatinine up to 2.4. Denies chest pain, palpitations or increasing shortness of breath. Chest x-ray reporting patchy left perihilar infiltrate, correlate for asymmetric pulmonary edema versus developing pne umonia. Maintaining O2 sats in the 90s on room air. Afebrile, normal WBC. Ascites cultures/cytology pending. Sodium 128. 02/17/21 receive 1 unit of packed RBCs yesterday with current hemoglobin up to 8.1, platelets 83. Systolic blood pressure up into the low 100s this morning. Maintaining O2 sats in the 90s on room air. BUN down to 36.2, creatinine 1.6. T bili/LFTs trending down. Albumin 3.3, third spacing present. Receiving IV iron as per hematology. Denies nausea, vomiting. Loose BM reported. Denies abdominal pain. Denies chest pain, palpitations or shortness of breath. Ascitic fluid cultures pending. Afebrile, WBC 3.5. Objective - Vital Signs Vital signs: Vital Signs Temp 98.0 F 02/17/21 05:00 Pulse 89 02/17/21 05:00 Resp 16 02/17/21 05:00 BP 103/60 02/17/21 05:00 Pulse Ox 93 L 02/17/21 05:00 Intake & Output 02/16/21 02/17/21 02/17/21 18:59 06:59 18:59 Intake Total 310 540 Output Total 0 Balance 310 540 Weight 115.666 kg Intake: Oral 540 Blood Product 310 Rc As-1 Unit 310 [id number] Output: Stool 0 Other: Voiding Method Diaper Diaper Diaper # Voids 3 4 # Bowel Movements 4 - Exam PHYSICAL EXAMINATION: GENERAL: Alert and oriented x3, no acute distress. Well developed, well nourished. HEENT: Pupils are round and equally reacting to light. EOMI. Scler anicteric, Pos.conjunctival pallor . Normocephalic, atraumatic. CARDIOVASCULAR: S1 and S2 present. Irregular, + systolic murmur, rubs, or gallops. PULMONARY: Chest is clear to auscultation, bibasilar crackles, no wheezing. ABDOMEN: Soft, nontender, distended ,normoactive bowel sounds. No palpable organomegaly. MUSCULOSKELETAL:No joint swelling or deformity. EXTREMITIES: Third spacing present, no calf tenderness. NEUROLOGICAL: Gross neurological examination did not reveal any focal deficits. SKIN: No rashes. - Labs CBC & Chem 7: 02/17/21 05:01 02/17/21 05:01 Labs: Abnormal Lab Results - Last 24 Hours (Table) 02/16/21 02/17/21 02/17/21 Range/Units 07:17 05:01 05:01 WBC 3.5 L (3.8-10.6) k/uL RBC 2.44 L (4.30-5.90) m/uL Hgb 8.1 L (13.0-17.5) gm/dL Hct 25.0 L (39.0-53.0) % MCV 102.5 H (80.0-100.0) fL RDW 19.9 H (11.5-15.5) % Plt Count 83 L (150-450) k/uL Lymphocytes # 0.4 L (1.0-4.8) k/uL Macrocytosis Marked A Sodium 129 L (135-145) mmol/L Carbon Dioxide 17.4 L (21.6-31.8) mmol/L Anion Gap 13.60 H (4.00-12.00) mmol/L BUN 36.2 H (9.0-27.0) mg/dL Creatinine 1.6 H (0.6-1.5) mg/dL Est GFR (CKD-EPI)AfAm 51.3 L (60.0-200.0) Est GFR (CKD-EPI)NonAf 44.2 L (60.0-200.0) BUN/Creatinine Ratio 22.63 H (12.00-20.00) Ratio Total Bilirubin 3.20 H (0.30-1.20) mg/dL Alkaline Phosphatase 243 H (41-126) U/L Total Protein 5.1 L (6.2-8.2) g/dL Albumin 3.3 L (3.8-4.9) g/dL Crossmatch See Detail Microbiology - Last 24 Hours (Table) 02/13/21 12:30 Gram Stain - Preliminary Ascites Fluid Body Fluid Culture - Preliminary Assessment and Plan Assessment: -Anemia secondary to acute upper GI bleed from an AV malformation, s/p transfusion of 4 units of packed RBCs, s/p Repeat EGD on 02/13 -Hyponatremia appears to be hypervolemic hyponatremia from cirrhosis. -Paroxysmal atrial fibrillation, not on anticoagulation due to anemia -Hypomagnesemia: Probably due to chronic alcohol abuse, replace per protocol we will add oral magnesium daily. -Nicotine use: Counseling was provided -Pulmonary hypertension - was scheduled for outpatient right and left cath on Tuesday 02/13, which is now on hold due to anemia. -Moderate to severe mitral regurgitation -Mild Acute component on Chronic diastolic congestive heart failure current EF is 55% -Chronic alcohol abuse -Volume overload secondary to cirrhosis, status post paracentesis -Hypertension -Hypothyroidism -Hypoalbuminemia with subsequent third spacing Plan: Continue on current medication regime ,monitoring and symptomatic treatment. Repeat another dose of Lasix 40 IV push today for clinical evidence of pulmonary edema.IV iron -patient will also follow up outpatient with hematology for further iron transfusions.Close monitoring of CBC, sodium, renal function with repeat labs ordered for a.m. ascites fluid cultures p ending.prognosis guarded given multiple complex medical issues. Discharge planning in progress pending hemoglobin/renal function remained stable. The impression and plan of care has been dictated as directed. : I performed a history and examination of this patient, discussed the same with the dictator. I agree with the dictator's note ,documented as a scribe. Any additional findings or plans will be noted.
[2021-02-17] MEDS: QUEtiapine 50 MG TAB PO SCH (21:22)
[2021-02-18] MEDS: LEVOTHYROXINE 100 MCG TAB PO SCH (05:48)
[2021-02-18] MEDS: HYDROcodone/APAP 10-325MG 1 EACH TAB PO PRN ×2 (05:50→16:54)
[2021-02-18 06:39] LABS: Anisocytosis Moderate; HCT 23.4 % (39.0-53.0); HGB 7.7 gm/dL (13.0-17.5); MCHC 32.9 g/dL (31.0-37.0); MCV 100.3 fL (80.0-100.0); Macrocytosis Moderate; Mean Platelet Volume 9.6; Poikilocytosis Slight; RBC 2.33 m/uL (4.30-5.90); RDW 20.2 % (11.5-15.5); WBC 2.7 k/uL (3.8-10.6)
[2021-02-18 06:52] LABS: Platelet Count 83 k/uL (150-450)
[2021-02-18] MEDS: NICOTINE 14MG/24HR PATCH TRANSDERM SCH (07:23)
[2021-02-18] MEDS: FOLIC ACID 1 MG TAB PO SCH (08:00)
[2021-02-18] MEDS: POTASSIUM CHLORIDE ER 10 MEQ TAB.ER.PRT PO SCH ×2 (08:00→21:38)
[2021-02-18] MEDS: FERROUS SULFATE 325 MG TAB PO SCH ×2 (08:00→21:38)
[2021-02-18] MEDS: THIAMINE 100 MG TAB PO SCH (08:00)
[2021-02-18] MEDS: PANTOPRAZOLE 40 MG/10 ML VIAL IV SCH (08:00)
[2021-02-18] MEDS: MAGNESIUM OXIDE 400 MG TAB PO SCH ×2 (08:00→21:38)
--- NOTE | 2021-02-18 09:03 | P.PN ---
Subjective Progress Note Date: 02/18/21 This is a 65-year-old gentleman admitted with anemia secondary to acute upper GI bleed from AV malformation, hyponatremia, proximal atrial fibrillation, and multiple other medical issues. Hemoglobin 6.8,1 unit of packed RBCs ordered. Anticoagulation on hold at this time . Hematology following .borderline hypotension with Lasix, Norvasc and YOLANDA inhibitor on hold. Worsening renal function with creatinine up to 2.4. Denies chest pain, palpitations or increasing shortness of breath. Chest x-ray reporting patchy left perihilar infiltrate, correlate for asymmetric pulmonary edema versus developing pne umonia. Maintaining O2 sats in the 90s on room air. Afebrile, normal WBC. Ascites cultures/cytology pending. Sodium 128. 02/17/21 receive 1 unit of packed RBCs yesterday with current hemoglobin up to 8.1, platelets 83. Systolic blood pressure up into the low 100s this morning. Maintaining O2 sats in the 90s on room air. BUN down to 36.2, creatinine 1.6. T bili/LFTs trending down. Albumin 3.3, third spacing present. Receiving IV iron as per hematology. Denies nausea, vomiting. Loose BM reported. Denies abdominal pain. Denies chest pain, palpitations or shortness of breath. Ascitic fluid cultures pending. Afebrile, WBC 3.5. 02/18/2021 ongoing diarrhea, C. difficile colitis ruled out. Staff reports stool brown with specks of blood. Denies abdominal pain. Hemoglobin 7.7, c reatinine pending. Ascites fluid cultures reporting negative. Afebrile, WBC 2.7. Objective - Vital Signs Vital signs: Vital Signs Temp 97.8 F 02/18/21 05:00 Pulse 80 02/18/21 07:59 Resp 16 02/18/21 05:00 BP 105/58 02/18/21 07:59 Pulse Ox 98 02/18/21 05:00 Intake & Output 02/17/21 02/18/21 02/18/21 18:59 06:59 18:59 Weight 115.666 kg Other: Voiding Method Diaper Toilet Urinal Diaper # Voids 2 # Bowel Movements 2 - Exam PHYSICAL EXAMINATION: GENERAL: Alert and oriented x3, no acute distress. HEENT: Pupils are round and equally reacting to light. EOMI. Normocephalic, atraumatic. CARDIOVASCULAR: S1 and S2 present. Irregular, + systolic murmur, rubs, or gallops. PULMONARY: Chest is clear to auscultation, bibasilar crackles, no wheezing. ABDOMEN: Soft, nontender, distended ,normoactive bowel sounds. No palpable organomegaly. MUSCULOSKELETAL:No joint swelling or deformity. EXTREMITIES: Decreasing Third spacing, no calf tenderness. NEUROLOGICAL: Gross neurological examination did not reveal any focal deficits. SKIN: No rashes. Microbiology 02/13/21 12:30 Ascites Fluid Gram Stain - Final 02/13/21 12:30 Ascites Fluid Body Fluid Culture - Final 02/13/21 12:30 Ascites Fluid Anaerobic Culture - Final 02/12/21 14:20 Stool Stool Culture - Final 02/13/21 12:30 Abdominal Fluid Acid Fast Bacilli Smear - Final 02/13/21 12:30 Abdominal Fluid Acid Fast Bacilli Culture - Preliminary 02/13/21 12:30 Abdominal Fluid Fungal Culture - Preliminary - Labs CBC & Chem 7: 02/18/21 05:05 02/17/21 05:01 Labs: Abnormal Lab Results - Last 24 Hours (Table) 02/17/21 02/17/21 02/18/21 Range/Units 05:01 05:01 05:05 WBC 2.7 L (3.8-10.6) k/uL RBC 2.33 L (4.30-5.90) m/uL Hgb 7.7 L (13.0-17.5) gm/dL Hct 23.4 L (39.0-53.0) % MCV 100.3 H (80.0-100.0) fL RDW 20.2 H (11.5-15.5) % Lymphocytes # 0.4 L (1.0-4.8) k/uL Sodium 129 L (135-145) mmol/L Carbon Dioxide 17.4 L (21.6-31.8) mmol/L Anion Gap 13.60 H (4.00-12.00) mmol/L BUN 36.2 H (9.0-27.0) mg/dL Creatinine 1.6 H (0.6-1.5) mg/dL Est GFR (CKD-EPI)AfAm 51.3 L (60.0-200.0) Est GFR (CKD-EPI)NonAf 44.2 L (60.0-200.0) BUN/Creatinine Ratio 22.63 H (12.00-20.00) Ratio Total Bilirubin 3.20 H (0.30-1.20) mg/dL Alkaline Phosphatase 243 H (41-126) U/L Total Protein 5.1 L (6.2-8.2) g/dL Albumin 3.3 L (3.8-4.9) g/dL Microbiology - Last 24 Hours (Table) 02/13/21 12:30 Gram Stain - Final Ascites Fluid Body Fluid Culture - Final 02/13/21 12:30 Anaerobic Culture - Final Ascites Fluid 02/12/21 14:20 Stool Culture - Final Stool Assessment and Plan Assessment: -Anemia secondary to acute upper GI bleed from an AV malformation, s/p transfusion of 4 units of packed RBCs, s/p Repeat EGD on 02/13 -Ascites, status post paracentesis -Hyponatremia appears to be hypervolemic hyponatremia from cirrhosis. -Paroxysmal atrial fibrillation, not on anticoagulation due to anemia -Hypomagnesemia: Probably due to chronic alcohol abuse, replace per protocol we will add oral magnesium daily. -Nicotine use: Counseling was provided -Pulmonary hypertension - was scheduled for outpatient right and left cath on Tuesday 02/13, which is now on hold due to anemia. -Moderate to severe mitral regurgitation -Mild Acute component on Chronic diastolic congestive heart failure current EF is 55% -Chronic alcohol abuse -Volume overload secondary to cirrhosis, status post paracentesis -Hypertension -Hypothyroidism -Hypoalbuminemia with subsequent third spacing Plan: Continue on current medication regime ,monitoring and symptomatic tr eatment.Convert lasix to oral daily, home dose of 40mg. BMP pending .IV iron. Increase ambulation as tolerated. Close monitoring of coags., Electrolytes with repeat labs ordered for a.m. Prognosis guarded given multiple complex medical issues. Discharge planning in progress possibly for tomorrow. The impression and plan of care has been dictated as directed. : I performed a history and examination of this patient, discussed the same with the dictator. I agree with the dictator's note ,documented as a scribe. Any additional findings or plans will be noted.
[2021-02-18] MEDS: ALBUTEROL HFA INHALER INHALATION PRN ×2 (09:18→20:26)
[2021-02-18] MEDS: SODIUM FERRIC GLUCONAT-SUCROSE 125 MG in SODIUM CHLORIDE 0.9% 100 ML IVPB SCH (09:44)
[2021-02-18] MEDS: FUROSEMIDE 40 MG TAB PO SCH (09:44)
--- NOTE | 2021-02-18 10:41 | P.PN ---
Subjective Progress Note Date: 02/18/21 Principal diagnosis: Gi bleed anemia Objective - Vital Signs Vital signs: Vital Signs Temp 97.8 F 02/18/21 05:00 Pulse 80 02/18/21 07:59 Resp 16 02/18/21 05:00 BP 105/58 02/18/21 07:59 Pulse Ox 98 02/18/21 05:00 Intake & Output 02/17/21 02/18/21 02/18/21 18:59 06:59 18:59 Weight 115.666 kg Other: Voiding Method Diaper Toilet Toilet Urinal Urinal Diaper # Voids 2 # Bowel Movements 2 - Exam - Constitutional General appearance: cooperative, no acute distress - EENT Eyes: EOMI ENT: hard of hearing, NA/AT - Neck Neck: normal ROM - Respiratory Respiratory: bilateral: diminished, rhonchi - Cardiovascular Rhythm: regularly irregular - Gastrointestinal General gastrointestinal: distended, soft - Integumentary Integumentary: jaundiced, pale - Neurologic non focal - Musculoskeletal Musculoskeletal: generalized weakness - Psychiatric Psychiatric: A&O x's 3, appropriate affect, intact judgment & insight - Labs CBC & Chem 7: 02/18/21 05:05 02/17/21 05:01 Labs: Abnormal Lab Results - Last 24 Hours (Table) 02/17/21 02/18/21 Range/Units 05:01 05:05 WBC 2.7 L (3.8-10.6) k/uL RBC 2.33 L (4.30-5.90) m/uL Hgb 7.7 L (13.0-17.5) gm/dL Hct 23.4 L (39.0-53.0) % MCV 100.3 H (80.0-100.0) fL RDW 20.2 H (11.5-15.5) % Sodium 129 L (135-145) mmol/L Carbon Dioxide 17.4 L (21.6-31.8) mmol/L Anion Gap 13.60 H (4.00-12.00) mmol/L BUN 36.2 H (9.0-27.0) mg/dL Creatinine 1.6 H (0.6-1.5) mg/dL Est GFR (CKD-EPI)AfAm 51.3 L (60.0-200.0) Est GFR (CKD-EPI)NonAf 44.2 L (60.0-200.0) BUN/Creatinine Ratio 22.63 H (12.00-20.00) Ratio Total Bilirubin 3.20 H (0.30-1.20) mg/dL Alkaline Phosphatase 243 H (41-126) U/L Total Protein 5.1 L (6.2-8.2) g/dL Albumin 3.3 L (3.8-4.9) g/dL Microbiology - Last 24 Hours (Table) 02/13/21 12:30 Gram Stain - Final Ascites Fluid Body Fluid Culture - Final 02/13/21 12:30 Anaerobic Culture - Final Ascites Fluid 02/12/21 14:20 Stool Culture - Final Stool Assessment and Plan (1) Ascites Current Visit: Yes Status: Acute Code(s): R18.8 - OTHER ASCITES SNOMED Code(s): 568451483 (2) GI AVM (gastrointestinal arteriovenous vascular malformation) Current Visit: No Status: Acute Code(s): K55.20 - ANGIODYSPLASIA OF COLON WITHOUT HEMORRHAGE SNOMED Code(s): 873607370 (3) Liver cirrhosis, alcoholic Current Visit: No Status: Acute Code(s): K70.30 - ALCOHOLIC CIRRHOSIS OF LIVER WITHOUT ASCITES SNOMED Code(s): 990282590 (4) Pancytopenia Current Visit: No Status: Acute Code(s): D61.818 - OTHER PANCYTOPENIA SNOMED Code(s): 855577442 (5) Paroxysmal atrial fibrillation with RVR Current Visit: No Status: Acute Code(s): I48.0 - PAROXYSMAL ATRIAL FIBRILLATION SNOMED Code(s): 7619536682 Plan: Nomi has a known history of alcohol induced cirrhosis which is primary etiology of his pancytopenia. He also has known history of GI blood loss anemia. he was suppose to follow-up after last admission for Parental iron infusions in office, however he had never answered or called our office back to confirm an lance ointment. We discussed this during our visit and the importance of follow-up. He continues with questions of "why his blood counts are low?" and How do we improve which leads me to think he is not truly understanding despite the alta conversation of needing to quite alcohol completely, blood loss anemia as a result and liver cirrohosis as contributing factor to his marrow suppression. At this time he has agreed to follow-up in office as recommended after discharge Macroctyic Anemia: Multifactorial: - Primarily due to ETOH abuse and AVMs - Will add folic acid for low folate - related to poor nutrition from ETOH - Recheck TSH - Iron studies are adequate at this time, but unclear if iron studies can be interpretted as accurate given time of draw. With active AVMs in Gastric body there is high suspicion of iron deficiency related to GI blood loss ETOH Cessation Considering bone marrow biopsy if persists and/or worsens, especially if after cessation of ETOH Transfusion support to keep Hemoglobin greater than 7 Diarrhea: - C diff negative -Positive for evidence visible blood per RNs - Add additional stool studies and evaluate for obstruction
[2021-02-18 12:53] LABS: African American GFR (CKD) 78.9 (60.0-200.0); Anion Gap 10.9 mmol/L (4.00-12.00); BUN/Creat Ratio 22.5 Ratio (12.00-20.00); Blood Urea Nitrogen 25.2 mg/dL (9.0-27.0); Calcium 8.6 mg/dL (8.7-10.3); Carbon Dioxide 22.9 mmol/L (21.6-31.8); Non-African American GFR(CKD) 68.1 (60.0-200.0); Potassium 3.8 mmol/L (3.5-5.5)
[2021-02-18 13:58] LABS: Band Neutrophils % 1 %; Eosinophils # (M) 0.03 k/uL (0-0.7); Metamyelocytes # (M) 0.03 k/uL (0); Metamyelocytes % 1 %; Myelocytes # (M) 0.05 k/uL (0); Myelocytes % 2 %; Neutrophils % (M) 75 %; Nucleated Red Blood Cells 0 /100 WBC (0-0); Total Cells Counted 200
--- NOTE | 2021-02-18 15:02 | XR ---
EXAMINATION TYPE: XR abdomen 2V DATE OF EXAM: 02/18/2021 CLINICAL DATA: 65-year-old male pain, ileus versus obstruction., [facility] COMPARISON: CT 10/27/2020 FINDINGS: Generalized hazy density may reflect underlying ascites fluid. No evidence for recurrent intraperiton eal air. A few air-fluid levels in the mid abdomen may be located within small bowel. These loops measure up t o 3.4 cm. Bladder. Possibility of colonic air. Phlebolith in left side of the pelvis. Suspected splen omegaly at 19.3 cm. IMPRESSION: 1. Generalized increased density may reflect underlying ascites fluid. 2. Small bowel loops measuring up to 3.4 cm with some air-fluid levels. Findings are nonspecific and could relate to early small bowel obstruction or ileus. Radiographic follow-up recommended. 3. Splenomegaly measuring at least 19.3 cm.
[2021-02-18] MEDS: QUEtiapine 50 MG TAB PO SCH (21:38)
[2021-02-19] MEDS: HYDROcodone/APAP 10-325MG 1 EACH TAB PO PRN ×3 (01:10→13:34)
[2021-02-19] MEDS: LEVOTHYROXINE 100 MCG TAB PO SCH (05:32)
[2021-02-19 06:55] LABS: Anisocytosis Slight; HCT 22.3 % (39.0-53.0); HGB 7.5 gm/dL (13.0-17.5); MCH 33.9 pg (25.0-35.0); MCHC 33.4 g/dL (31.0-37.0); MCV 101.5 fL (80.0-100.0); Macrocytosis Moderate; Mean Platelet Volume 9.4; RDW 19.9 % (11.5-15.5); WBC 2.3 k/uL (3.8-10.6)
[2021-02-19 07:02] LABS: Platelet Count 77 k/uL (150-450)
[2021-02-19] MEDS: ALBUTEROL HFA INHALER INHALATION PRN ×2 (07:45→15:11)
[2021-02-19] MEDS: NICOTINE 14MG/24HR PATCH TRANSDERM SCH (08:04)
[2021-02-19] MEDS: FOLIC ACID 1 MG TAB PO SCH (08:05)
[2021-02-19] MEDS: THIAMINE 100 MG TAB PO SCH (08:05)
[2021-02-19] MEDS: FUROSEMIDE 40 MG TAB PO SCH (08:05)
[2021-02-19] MEDS: FERROUS SULFATE 325 MG TAB PO SCH ×2 (08:05→20:24)
[2021-02-19] MEDS: MAGNESIUM OXIDE 400 MG TAB PO SCH ×2 (08:05→20:24)
[2021-02-19] MEDS: POTASSIUM CHLORIDE ER 10 MEQ TAB.ER.PRT PO SCH ×2 (08:06→20:24)
[2021-02-19] MEDS: PANTOPRAZOLE 40 MG/10 ML VIAL IV SCH (08:06)
[2021-02-19] MEDS: SODIUM FERRIC GLUCONAT-SUCROSE 125 MG in SODIUM CHLORIDE 0.9% 100 ML IVPB SCH (08:27)
--- NOTE | 2021-02-19 10:36 | P.PN ---
Subjective Progress Note Date: 02/19/21 This is a 65-year-old gentleman admitted with anemia secondary to acute upper GI bleed from AV malformation, hyponatremia, proximal atrial fibrillation, and multiple other medical issues. Hemoglobin 6.8,1 unit of packed RBCs ordered. Anticoagulation on hold at this time . Hematology following .borderline hypotension with Lasix, Norvasc and YOLANDA inhibitor on hold. Worsening renal function with creatinine up to 2.4. Denies chest pain, palpitations or increasing shortness of breath. Chest x-ray reporting patchy left perihilar infiltrate, correlate for asymmetric pulmonary edema versus developing pne umonia. Maintaining O2 sats in the 90s on room air. Afebrile, normal WBC. Ascites cultures/cytology pending. Sodium 128. 02/17/21 receive 1 unit of packed RBCs yesterday with current hemoglobin up to 8.1, platelets 83. Systolic blood pressure up into the low 100s this morning. Maintaining O2 sats in the 90s on room air. BUN down to 36.2, creatinine 1.6. T bili/LFTs trending down. Albumin 3.3, third spacing present. Receiving IV iron as per hematology. Denies nausea, vomiting. Loose BM reported. Denies abdominal pain. Denies chest pain, palpitations or shortness of breath. Ascitic fluid cultures pending. Afebrile, WBC 3.5. 02/18/2021 ongoing diarrhea, C. difficile colitis ruled out. Staff reports stool brown with specks of blood. Denies abdominal pain. Hemoglobin 7.7, c reatinine pending. Ascites fluid cultures reporting negative. Afebrile, WBC 2.7. 02/19/2021 hemoglobin decreased to 7.5, platelets 77. Vital signs stable, no tachycardia .Peritoneal fluid cytology reporting no malignant cells. Abdominal x-ray completed yesterday afternoon reporting generalized increased density, may reflect underlying ascites fluid, nonspecific small bowel measuring up to 3.4 cm with some air-fluid levels, splenomegaly measuring 19.3 cm. Denies bloating, nausea or vomiting . Denies abdominal pain. Denies cough, congestion. Denies chest pain, palpitations or shortness of breath .maintained on oral Lasix.diarrhea subsided, reports formed brown bowel movement this morning, less flatus. Complains of generalized weakness, PT evaluation pending. Denies lightheadedness, dizziness or focal deficits. Objective - Vital Signs Vital signs: Vital Signs Temp 98.1 F 02/19/21 05:00 Pulse 94 02/19/21 05:00 Resp 20 02/19/21 05:00 BP 101/68 02/19/21 05:00 Pulse Ox 98 02/19/21 05:00 Intake & Output 02/18/21 02/19/21 02/19/21 18:59 06:59 18:59 Intake Total 200 Output Total 0 Balance 200 Intake: Oral 200 Output: Stool 0 Other: Voiding Method Toilet Toilet Toilet Urinal Urinal Urinal # Voids 3 1 # Bowel Movements 3 - Exam PHYSICAL EXAMINATION: GENERAL: Sitting up in bed, Alert and oriented x3, no acute distress. HEENT: Pupils are round and equally reacting to light. EOMI. Normocephalic, atraumatic. CARDIOVASCULAR: S1 and S2 present. Irregular, + systolic murmur, rubs, or gallops. PULMONARY: Chest is clear to auscultation, no crackles, no wheezing. ABDOMEN: Soft, nontender, distended ,normoactive bowel sounds. No palpable organomegaly. MUSCULOSKELETAL:No joint swelling or deformity. EXTREMITIES: Significant decrease in edema, minimal, no calf tenderness. NEUROLOGICAL: Gross neurological examination did not reveal any focal deficits. SKIN: No rashes. - Labs CBC & Chem 7: 02/19/21 05:26 02/18/21 05:05 Labs: Abnormal Lab Results - Last 24 Hours (Table) 02/18/21 02/18/21 02/18/21 Range/Units 05:05 05:05 15:39 WBC (3.8-10.6) k/uL RBC (4.30-5.90) m/uL Hgb (13.0-17.5) gm/dL Hct (39.0-53.0) % MCV (80.0-100.0) fL RDW (11.5-15.5) % Plt Count 83 L (150-450) k/uL Lymphocytes # (Manual) 0.30 L (1.0-4.8) k/uL Metamyelocytes # (Man) 0.03 H (0) k/uL Myelocytes # (Manual) 0.05 H (0) k/uL Sodium 132 L (135-145) mmol/L BUN/Creatinine Ratio 22.50 H (12.00-20.00) Ratio Glucose 122 H (70-110) mg/dL Calcium 8.6 L (8.7-10.3) mg/dL Stool Lactoferrin POSITIVE A (NEGATIVE) 02/19/21 Range/Units 05:26 WBC 2.3 L (3.8-10.6) k/uL RBC 2.20 L (4.30-5.90) m/uL Hgb 7.5 L (13.0-17.5) gm/dL Hct 22.3 L (39.0-53.0) % MCV 101.5 H (80.0-100.0) fL RDW 19.9 H (11.5-15.5) % Plt Count 77 L (150-450) k/uL Lymphocytes # (Manual) (1.0-4.8) k/uL Metamyelocytes # (Man) (0) k/uL Myelocytes # (Manual) (0) k/uL Sodium (135-145) mmol/L BUN/Creatinine Ratio (12.00-20.00) Ratio Glucose (70-110) mg/dL Calcium (8.7-10.3) mg/dL Stool Lactoferrin (NEGATIVE) Microbiology - Last 24 Hours (Table) 02/18/21 15:39 Stool Culture - Preliminary Stool Assessment and Plan Assessment: -Anemia secondary to acute upper GI bleed from an AV malformation, s/p transfusion of 4 units of packed RBCs, s/p Repeat EGD on 02/13 -Ascites, status post paracentesis -Hyponatremia appears to be hypervolemic hyponatremia from cirrhosis. -Paroxysmal atrial fibrillation, not on anticoagulation due to anemia -Hypomagnesemia: Probably due to chronic alcohol abuse, replace per protocol we will add oral magnesium daily. -Nicotine use: Counseling was provided -Pulmonary hypertension - was scheduled for outpatient right and left cath on Tuesday 02/13, which is now on hold due to anemia. -Moderate to severe mitral regurgitation -Mild Acute component on Chronic diastolic congestive heart failure current EF is 55% -Chronic alcohol abuse -Volume overload secondary to cirrhosis, status post paracentesis -Hypertension -Hypothyroidism -Hypoalbuminemia with subsequent third spacing Plan: Continue on current medication regime ,monitoring and symptomatic treatment. BMP pending .PT/ Increase ambulation as tolerated. Initially had discussed potential discharge today but hemoglobin decreased, continue with close monitoring of coags. May require transfer to tertiary center if hemoglobin fails to stabilize for potential AVM cauterization -currently no GI services in house this week .Prognosis guarded given multiple complex medical issues. The impression and plan of care has been dictated as directed. : I performed a history and examination of this patient, discussed the same with the dictator. I agree with the dictator's note ,documented as a scribe. Any additional findings or plans will be noted.
[2021-02-19 11:14] LABS: Magnesium 1.6 mg/dL (1.5-2.4)
[2021-02-19 12:04] LABS: African American GFR (CKD) 107.9 (60.0-200.0); Anion Gap 9.7 mmol/L (4.00-12.00); BUN/Creat Ratio 20.75 Ratio (12.00-20.00); Blood Urea Nitrogen 16.6 mg/dL (9.0-27.0); Calcium 8.5 mg/dL (8.7-10.3); Carbon Dioxide 23.3 mmol/L (21.6-31.8); Non-African American GFR(CKD) 93.1 (60.0-200.0); Potassium 3.6 mmol/L (3.5-5.5)
--- NOTE | 2021-02-19 13:29 | P.PN ---
Subjective Progress Note Date: 02/19/21 Principal diagnosis: Gi bleed anemia Hemoglobin is staying between 7-8 although status post 3 IV Iron and not improved Objective - Vital Signs Vital signs: Vital Signs Temp 98 F 02/19/21 12:19 Pulse 82 02/19/21 12:19 Resp 19 02/19/21 12:19 BP 110/70 02/19/21 12:19 Pulse Ox 100 02/19/21 12:19 Intake & Output 02/18/21 02/19/21 02/19/21 18:59 06:59 18:59 Intake Total 200 Output Total 0 Balance 200 Intake: Oral 200 Output: Stool 0 Other: Voiding Method Toilet Toilet Toilet Urinal Urinal Urinal # Voids 3 1 # Bowel Movements 3 - Exam - Constitutional General appearance: cooperative, no acute distress - EENT Eyes: EOMI ENT: hard of hearing, NA/AT - Neck Neck: normal ROM - Respiratory Respiratory: bilateral: diminished, rhonchi - Cardiovascular Rhythm: regularly irregular - Gastrointestinal General gastrointestinal: distended, soft - Integumentary Integumentary: jaundiced, pale - Neurologic non focal - Musculoskeletal Musculoskeletal: generalized weakness - Psychiatric Psychiatric: A&O x's 3, appropriate affect, intact judgment & insight - Labs CBC & Chem 7: 02/19/21 05:26 02/19/21 05:26 Labs: Abnormal Lab Results - Last 24 Hours (Table) 02/18/21 02/18/21 02/19/21 Range/Units 05:05 15:39 05:26 WBC 2.3 L (3.8-10.6) k/uL RBC 2.20 L (4.30-5.90) m/uL Hgb 7.5 L (13.0-17.5) gm/dL Hct 22.3 L (39.0-53.0) % MCV 101.5 H (80.0-100.0) fL RDW 19.9 H (11.5-15.5) % Plt Count 83 L 77 L (150-450) k/uL Lymphocytes # (Manual) 0.30 L (1.0-4.8) k/uL Metamyelocytes # (Man) 0.03 H (0) k/uL Myelocytes # (Manual) 0.05 H (0) k/uL Sodium (135-145) mmol/L BUN/Creatinine Ratio (12.00-20.00) Ratio Glucose (70-110) mg/dL Calcium (8.7-10.3) mg/dL Stool Lactoferrin POSITIVE A (NEGATIVE) 02/19/21 Range/Units 05:26 WBC (3.8-10.6) k/uL RBC (4.30-5.90) m/uL Hgb (13.0-17.5) gm/dL Hct (39.0-53.0) % MCV (80.0-100.0) fL RDW (11.5-15.5) % Plt Count (150-450) k/uL Lymphocytes # (Manual) (1.0-4.8) k/uL Metamyelocytes # (Man) (0) k/uL Myelocytes # (Manual) (0) k/uL Sodium 133 L (135-145) mmol/L BUN/Creatinine Ratio 20.75 H (12.00-20.00) Ratio Glucose 115 H (70-110) mg/dL Calcium 8.5 L (8.7-10.3) mg/dL Stool Lactoferrin (NEGATIVE) Microbiology - Last 24 Hours (Table) 02/18/21 15:39 Stool Culture - Preliminary Stool Assessment and Plan (1) Ascites Current Visit: Yes Status: Acute Code(s): R18.8 - OTHER ASCITES SNOMED Code(s): 501023551 (2) GI AVM (gastrointestinal arteriovenous vascular malformation) Current Visit: No Status: Acute Code(s): K55.20 - ANGIODYSPLASIA OF COLON WITHOUT HEMORRHAGE SNOMED Code(s): 179602318 (3) Liver cirrhosis, alcoholic Current Visit: No Status: Acute Code(s): K70.30 - ALCOHOLIC CIRRHOSIS OF LIVER WITHOUT ASCITES SNOMED Code(s): 504407712 (4) Pancytopenia Current Visit: No Status: Acute Code(s): D61.818 - OTHER PANCYTOPENIA SNOMED Code(s): 080112390 (5) Paroxysmal atrial fibrillation with RVR Current Visit: No Status: Acute Code(s): I48.0 - PAROXYSMAL ATRIAL FIBRILLATION SNOMED Code(s): 0206198591 Plan: Nomi has a known history of alcohol induced cirrhosis which is primary etiology of his pancytopenia. He also has known history of GI blood loss anemia. he was suppose to follow-up after last admission for Parental iron infusions in office, however he had never answered or called our office back to confirm an appointment. We discussed this during our visit and the importance of follow-up. He continues with questions of "why his blood counts are low?" and How do we improve which leads me to think he is not truly understanding despite the alta conversation of needing to quite alcohol completely, blood loss anemia as a result and liver cirrohosis as contributing factor to his marrow suppression. At this time he has agreed to follow-up in office as recommended after discharge Macroctyic Anemia: Multifactorial: - Primarily due to ETOH abuse and AVMs - Will add folic acid for low folate - related to poor nutrition from ETOH - Recheck TSH - Iron studies are adequate at this time, but unclear if iron studies can be interpretted as accurate given time of draw. With active AVMs in Gastric body there is high suspicion of iron deficiency related to GI blood loss ETOH Cessation Considering bone marrow biopsy if persists and/or worsens, especially if after cessation of ETOH Transfusion support to keep Hemoglobin greater than 7 Diarrhea: - C diff negative -Positive for evidence visible blood per RNs - Add additional stool studies and evaluate for obstruction - Positive WBC - Inflammation Plan: - From hematology standpoint continue supportive transfusions and intermittent Coags - AVMS and ETOH liver disease primary underlying cause of cytopneia
[2021-02-19 13:44] LABS: Eosinophils # (M) 0.02 k/uL (0-0.7); Lymphocytes # (M) 0.64 k/uL (1.0-4.8); Monocytes # (M) 0.25 k/uL (0-1.0); Myelocytes # (M) 0.07 k/uL (0); Myelocytes % 3 %; Neutrophils # (M) 1.33 k/uL (1.3-7.7); Neutrophils % (M) 58 %; Nucleated Red Blood Cells 0 /100 WBC (0-0); Total Cells Counted 200
[2021-02-19] MEDS: QUEtiapine 50 MG TAB PO SCH (20:24)
[2021-02-20] MEDS: LEVOTHYROXINE 100 MCG TAB PO SCH (05:52)
[2021-02-20 07:09] LABS: INR 1.1 (<1.2); Prothrombin Time 11.9 sec (9.0-12.0)
[2021-02-20] MEDS: NICOTINE 14MG/24HR PATCH TRANSDERM SCH (08:14)
[2021-02-20] MEDS: SODIUM FERRIC GLUCONAT-SUCROSE 125 MG in SODIUM CHLORIDE 0.9% 100 ML IVPB SCH (08:38)
[2021-02-20] MEDS: FERROUS SULFATE 325 MG TAB PO SCH ×2 (08:38→21:18)
[2021-02-20] MEDS: FOLIC ACID 1 MG TAB PO SCH (08:38)
[2021-02-20] MEDS: HYDROcodone/APAP 10-325MG 1 EACH TAB PO PRN ×3 (08:39→21:18)
[2021-02-20] MEDS: FUROSEMIDE 40 MG TAB PO SCH (08:39)
[2021-02-20] MEDS: POTASSIUM CHLORIDE ER 10 MEQ TAB.ER.PRT PO SCH ×2 (08:39→21:18)
[2021-02-20] MEDS: THIAMINE 100 MG TAB PO SCH (08:39)
[2021-02-20] MEDS: MAGNESIUM OXIDE 400 MG TAB PO SCH ×2 (08:39→21:18)
[2021-02-20] MEDS: PANTOPRAZOLE 40 MG/10 ML VIAL IV SCH (08:39)
--- NOTE | 2021-02-20 11:01 | P.PN ---
Subjective Progress Note Date: 02/20/21 This is a 65-year-old gentleman admitted with anemia secondary to acute upper GI bleed from AV malformation, hyponatremia, proximal atrial fibrillation, and multiple other medical issues. Hemoglobin 6.8,1 unit of packed RBCs ordered. Anticoagulation on hold at this time . Hematology following .borderline hypotension with Lasix, Norvasc and YOLANDA inhibitor on hold. Worsening renal function with creatinine up to 2.4. Denies chest pain, palpitations or increasing shortness of breath. Chest x-ray reporting patchy left perihilar infiltrate, correlate for asymmetric pulmonary edema versus developing pne umonia. Maintaining O2 sats in the 90s on room air. Afebrile, normal WBC. Ascites cultures/cytology pending. Sodium 128. 02/17/21 receive 1 unit of packed RBCs yesterday with current hemoglobin up to 8.1, platelets 83. Systolic blood pressure up into the low 100s this morning. Maintaining O2 sats in the 90s on room air. BUN down to 36.2, creatinine 1.6. T bili/LFTs trending down. Albumin 3.3, third spacing present. Receiving IV iron as per hematology. Denies nausea, vomiting. Loose BM reported. Denies abdominal pain. Denies chest pain, palpitations or shortness of breath. Ascitic fluid cultures pending. Afebrile, WBC 3.5. 02/18/2021 ongoing diarrhea, C. difficile colitis ruled out. Staff reports stool brown with specks of blood. Denies abdominal pain. Hemoglobin 7.7, c reatinine pending. Ascites fluid cultures reporting negative. Afebrile, WBC 2.7. 02/19/2021 hemoglobin decreased to 7.5, platelets 77. Vital signs stable, no tachycardia .Peritoneal fluid cytology reporting no malignant cells. Abdominal x-ray completed yesterday afternoon reporting generalized increased density, may reflect underlying ascites fluid, nonspecific small bowel measuring up to 3.4 cm with some air-fluid levels, splenomegaly measuring 19.3 cm. Denies bloating, nausea or vomiting . Denies abdominal pain. Denies cough, congestion. Denies chest pain, palpitations or shortness of breath .maintained on oral Lasix.diarrhea subsided, reports formed brown bowel movement this morning, less flatus. Complains of generalized weakness, PT evaluation pending. Denies lightheadedness, dizziness or focal deficits. 02/20/2021 CBC pending. Denies nausea vomiting or diarrhea. Denies bloating. Denies abdominal pain. Afebrile, T-max 99.5. - Stable, maintaining O2 sats in the high 90s to 100% on room air. Denies chest pain, palpitations or shortness of breath. Objective - Vital Signs Vital signs: Vital Signs Temp 98.6 F 02/20/21 04:50 Pulse 103 H 02/20/21 04:50 Resp 20 02/20/21 04:50 BP 102/57 02/20/21 04:50 Pulse Ox 97 02/20/21 04:50 Intake & Output 02/19/21 02/20/21 02/20/21 18:59 06:59 18:59 Intake Total 100 100 Output Total 2 Balance 100 98 Weight 112 kg Intake: Intake, IV Titration 100 Amount Sodium Ferric Gluconat- 100 Sucrose 125 mg In Sodium Chloride 0.9% 100 ml @ 100 mls/hr IVPB DAILY [facility] Rx#:[id number] Oral 100 Output: Urine/Stool Mix 2 Other: Voiding Method Toilet Toilet Urinal Urinal # Bowel Movements 1 - Exam PHYSICAL EXAMINATION: GENERAL: Sitting up in bed, Alert and oriented x3, no acute distress. HEENT: Pupils are round and equally reacting to light. EOMI. Normocephalic, atraumatic. CARDIOVASCULAR: S1 and S2 present. Irregular, + systolic murmur, rubs, or gallops. PULMONARY: Bilateral bases diminished, no crackles, minimal fine expiratory wheezing. ABDOMEN: Soft, nontender, distended ,normoactive bowel sounds. No palpable organomegaly. MUSCULOSKELETAL:No joint swelling or deformity. EXTREMITIES: Significant decrease in edema, minimal, no calf tenderness. NEUROLOGICAL: Gross neurological examination did not reveal any focal deficits. SKIN: No rashes. - Labs CBC & Chem 7: 02/19/21 05:26 02/19/21 05:26 Labs: Abnormal Lab Results - Last 24 Hours (Table) 02/19/21 02/19/21 02/20/21 Range/Units 05:26 05:26 05:44 Lymphocytes # (Manual) 0.64 L (1.0-4.8) k/uL Myelocytes # (Manual) 0.07 H (0) k/uL APTT 21.0 L (22.0-30.0) sec Sodium 133 L (135-145) mmol/L BUN/Creatinine Ratio 20.75 H (12.00-20.00) Ratio Glucose 115 H (70-110) mg/dL Calcium 8.5 L (8.7-10.3) mg/dL Assessment and Plan Assessment: -Anemia secondary to acute upper GI bleed from an AV malformation, s/p transfusion of 4 units of packed RBCs, s/p Repeat EGD on 02/13 -Ascites, status post paracentesis -Hyponatremia appears to be hypervolemic hyponatremia from cirrhosis. -Paroxysmal atrial fibrillation, not on anticoagulation due to anemia -Hypomagnesemia: Probably due to chronic alcohol abuse, replace per protocol we will add oral magnesium daily. -Nicotine use: Counseling was provided -Pulmonary hypertension - was scheduled for outpatient right and left cath on Tuesday 02/13, which is now on hold due to anemia. -Moderate to severe mitral regurgitation -Mild Acute component on Chronic diastolic congestive heart failure current EF is 55% -Chronic alcohol abuse -Volume overload secondary to cirrhosis, status post paracentesis -Hypertension -Hypothyroidism -Hypoalbuminemia with subsequent third spacing Plan: Continue on current medication regime ,monitoring and symptomatic treatment. CBC pending .PT evaluation pending as patient declined yesterday. Increase ambulation as tolerated. Maintain close monitoring of coags. May require transfer to tertiary center if hemoglobin fails to stabilize for potential AVM cauterization -currently no GI services in house this week .Prognosis guarded given multiple complex medical issues. The impression and plan of care has been dictated as directed. : I performed a history and examination of this patient, discussed the same with the dictator. I agree with the dictator's note ,documented as a scribe. Any additional findings or plans will be noted.
[2021-02-20] MEDS: guaiFENesin 600 MG TABLET.ER PO SCH ×2 (11:24→21:18)
[2021-02-20 11:29] LABS: Anisocytosis Slight; HCT 23.3 % (39.0-53.0); HGB 7.6 gm/dL (13.0-17.5); MCH 33.3 pg (25.0-35.0); MCHC 32.7 g/dL (31.0-37.0); MCV 101.8 fL (80.0-100.0); Macrocytosis Moderate; Mean Platelet Volume 9.1; RBC 2.29 m/uL (4.30-5.90); WBC 2.4 k/uL (3.8-10.6)
[2021-02-20] MEDS: ALBUTEROL HFA INHALER INHALATION PRN (11:33)
[2021-02-20 12:07] LABS: Platelet Count 85 k/uL (150-450)
[2021-02-20 12:42] LABS: Magnesium 1.5 mg/dL (1.5-2.4)
[2021-02-20 12:45] LABS: Band Neutrophils % 2 %; Eosinophils # (M) 0.02 k/uL (0-0.7); Lymphocytes # (M) 0.65 k/uL (1.0-4.8); Metamyelocytes # (M) 0.05 k/uL (0); Metamyelocytes % 2 %; Monocytes # (M) 0.26 k/uL (0-1.0); Myelocytes # (M) 0.07 k/uL (0); Myelocytes % 3 %; Neutrophils % (M) 56 %; Nucleated Red Blood Cells 0 /100 WBC (0-0); Total Cells Counted 200
[2021-02-20 13:53] LABS: African American GFR (CKD) 114.4 (60.0-200.0); Albumin 3.3 g/dL (3.8-4.9); Albumin/Globulin Ratio 1.92 (1.60-3.17); Anion Gap 13.5 mmol/L (4.00-12.00); BUN/Creat Ratio 16.57 Ratio (12.00-20.00); Blood Urea Nitrogen 11.5 mg/dL (9.0-27.0); Calcium 8.6 mg/dL (8.7-10.3); Carbon Dioxide 21.5 mmol/L (21.6-31.8); Globulin 1.7 g/dL (1.6-3.3); Non-African American GFR(CKD) 98.7 (60.0-200.0); Total Bilirubin 3.4 mg/dL (0.30-1.20); Total Protein 5.1 g/dL (6.2-8.2)
--- NOTE | 2021-02-20 14:47 | P.PN ---
Subjective Progress Note Date: 02/20/21 Principal diagnosis: pancytopenia 2/2 ETOH marrow damage In f/u pt feels ok, has no c/o, denies any fever, nausea, bleeding, he is tolerating oral intake. Objective - Vital Signs Vital signs: Vital Signs Temp 98.2 F 02/20/21 13:00 Pulse 80 02/20/21 13:00 Resp 18 02/20/21 13:00 BP 104/72 02/20/21 13:00 Pulse Ox 98 02/20/21 13:00 Intake & Output 02/19/21 02/20/21 02/20/21 18:59 06:59 18:59 Intake Total 100 100 Output Total 2 Balance 100 98 Weight 112 kg Intake: Intake, IV Titration 100 Amount Sodium Ferric Gluconat- 100 Sucrose 125 mg In Sodium Chloride 0.9% 100 ml @ 100 mls/hr IVPB DAILY [facility] Rx#:[id number] Oral 100 Output: Urine/Stool Mix 2 Other: Voiding Method Toilet Toilet Toilet Urinal Urinal Urinal # Bowel Movements 1 - Constitutional General appearance: Present: average body habitus, cooperative, no acute distre ss - EENT Eyes: Present: anicteric sclerae, EOMI ENT: Present: hearing grossly normal - Respiratory Respiratory: bilateral: diminished, other (finger addn toe clubbing, moderate) - Cardiovascular Rhythm: regular Heart sounds: normal: S1, S2 - Peripheral edema foot Peripheral Edema: bilateral: Trace - Gastrointestinal General gastrointestinal: Present: normal bowel sounds, soft - Integumentary Integumentary: Present: pale - Neurologic Neurologic: Present: CNII-XII intact - Musculoskeletal Musculoskeletal: Present: generalized weakness - Psychiatric Psychiatric: Present: A&O x's 3, appropriate affect, intact judgment & insight - Labs CBC & Chem 7: 02/20/21 11:06 02/20/21 05:44 Labs: Abnormal Lab Results - Last 24 Hours (Table) 02/20/21 02/20/21 02/20/21 Range/Units 05:44 05:44 11:06 WBC 2.4 L (3.8-10.6) k/uL RBC 2.29 L (4.30-5.90) m/uL Hgb 7.6 L (13.0-17.5) gm/dL Hct 23.3 L (39.0-53.0) % MCV 101.8 H (80.0-100.0) fL RDW 19.0 H (11.5-15.5) % Plt Count 85 L (150-450) k/uL Lymphocytes # (Manual) 0.65 L (1.0-4.8) k/uL Metamyelocytes # (Man) 0.05 H (0) k/uL Myelocytes # (Manual) 0.07 H (0) k/uL APTT 21.0 L (22.0-30.0) sec Sodium 133 L (135-145) mmol/L Carbon Dioxide 21.5 L (21.6-31.8) mmol/L Anion Gap 13.50 H (4.00-12.00) mmol/L Calcium 8.6 L (8.7-10.3) mg/dL Total Bilirubin 3.40 H (0.30-1.20) mg/dL Alkaline Phosphatase 394 H (41-126) U/L Total Protein 5.1 L (6.2-8.2) g/dL Albumin 3.3 L (3.8-4.9) g/dL Assessment and Plan (1) Pancytopenia Narrative/Plan: Progressive over the last 3 years per this medical record. IV iron and folic acid for deficiencies. Work up has not identified any malignant underlying cause for pancytopenia. Encouraged lab monitoring and ETOH abstinence. 1 mo f/u with Hem/Onc Current Visit: Yes Status: Chronic Priority: Medium Code(s): D61.818 - OTHER PANCYTOPENIA SNOMED Code(s): 447857002
[2021-02-20] MEDS: QUEtiapine 50 MG TAB PO SCH (21:18)
[2021-02-21] MEDS: LEVOTHYROXINE 100 MCG TAB PO SCH (06:09)
[2021-02-21 08:12] LABS: Anisocytosis Slight; HCT 23.6 % (39.0-53.0); HGB 7.8 gm/dL (13.0-17.5); MCH 33.7 pg (25.0-35.0); MCHC 33.1 g/dL (31.0-37.0); Macrocytosis Moderate; Platelet Count 102 k/uL (150-450); RBC 2.32 m/uL (4.30-5.90)
[2021-02-21] MEDS: MAGNESIUM OXIDE 400 MG TAB PO SCH ×2 (09:09→21:22)
[2021-02-21] MEDS: THIAMINE 100 MG TAB PO SCH (09:09)
[2021-02-21] MEDS: FERROUS SULFATE 325 MG TAB PO SCH ×2 (09:09→21:22)
[2021-02-21] MEDS: PANTOPRAZOLE 40 MG/10 ML VIAL IV SCH (09:09)
[2021-02-21] MEDS: FOLIC ACID 1 MG TAB PO SCH (09:09)
[2021-02-21] MEDS: POTASSIUM CHLORIDE ER 10 MEQ TAB.ER.PRT PO SCH ×2 (09:09→21:22)
[2021-02-21] MEDS: guaiFENesin 600 MG TABLET.ER PO SCH ×2 (09:09→21:22)
[2021-02-21] MEDS: FUROSEMIDE 40 MG TAB PO SCH (09:09)
[2021-02-21] MEDS: HYDROcodone/APAP 10-325MG 1 EACH TAB PO PRN ×2 (09:10→18:18)
[2021-02-21] MEDS: NICOTINE 14MG/24HR PATCH TRANSDERM SCH (09:10)
[2021-02-21] MEDS: SODIUM FERRIC GLUCONAT-SUCROSE 125 MG in SODIUM CHLORIDE 0.9% 100 ML IVPB SCH (10:09)
[2021-02-21 10:45] LABS: Monocytes # (M) 0.24 k/uL (0-1.0); Myelocytes # (M) 0.06 k/uL (0); Myelocytes % 2 %; Neutrophils % (M) 80 %; Nucleated Red Blood Cells 0 /100 WBC (0-0); Total Cells Counted 100
[2021-02-21 10:46] LABS: Poikilocytosis (M) Present
[2021-02-21] MEDS: QUEtiapine 50 MG TAB PO SCH (21:22)
--- NOTE | 2021-02-21 23:16 | P.PN ---
Subjective Progress Note Date: 02/21/21 This is a pleasant 65-year-old male was recently hospitalized for acute GI bleed found to have arterial venous malformations and at that time patient underwent upper GI endoscopy colonoscopy push enteroscopy as well as capsule endoscopy, patient does have history of atrial fibrillation as an anti-correlation which was held and patient was discharged at that time. Patient is presently not on any anticoagulation or antiplatelet therapy with came in with very low hemoglobin generalized tiredness and weakness and found to have hemoglobin of 6.8 because of which patient was sent to the hospital. Patient does have pancytopenia directed have history of alcohol abuse and believed to have bone marrow suppression. Patient does have distention of the abdomen and may have ascites supposed to get an outpatient ultrasound today. Patient also has very low magnesium of 0.8. Patient is also hyponatremic his medications are not verified appears to be on Lasix for cirrhosis and volume overload secondary to that. Patient had normal ejection fraction the past patient is supposed to get cardiac catheterization as an outpatient this Tuesday. She does admit to having diarrhea and multiple or Doxil stress today and one episode of Doxil today. Gastric body will be consulted. 02/11/2021 Patient evaluated today resting in bed. He does report some diarrhea, he denies any blood in the stool. His hemoglobin today 7 status post 2 units of PRBC. Additional labs included white count of 1, RBC 1.94, platelet count of 100. Neutrophils are elevated at 0.39. Labs today show a magnesium of 1.4. Patient does report drinking a couple beers a day for many years. GI services consulted hematology for the pancytopenia. Cardiology consultation. Patient was planned for a right and left cardiac catheterization on Tuesday due to severely elevated RVSP of 102 found on echocardiogram. 02/12/21 Hemoglobin today came back at 6.5 we did transfuse 1 more unit of PRBCs. Additional labs included WBC of 1, RBC 1.78, hematocrit critical 18.7, there were no platelet counts available for today. Metabolic panel still pending. Ordered a paracentesis from IR for abdominal ascites on ultrasound. Vital show a blood pressure 104/64, afebrile. Pending consultation from hematology services. Repeat labs in the morning. 02/13/2021 Hemoglobin is 6.8 today and he is transfusing 1 unit of PRBCs. Additional labs are white blood cell count 1.1, platelet 85, INR today 1.1. Sodium levels 132 magnesium 1.7, potassium 4.1. Alk phos increased to 247, total bili 2.7, albumin is 5.1. Folate was found to be 3.8, was started on oral replacement from hematology. Paracentesis was completed at the bedside this afternoon. Recent EGD/colonoscopy in August 2020 showed antral gastritis and polypectomy. 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 Patient is frustrated and not underst anding why his blood counts are continuing to be low. He denies that this is because of his chronic alcohol abuse. Apparently has not followed up as recommended in the office with hematology services for iron transfusions. Patient continues in A. fib, rate controlled he is on metoprolol and Lasix and iron. Cardiac catheterization is still on hold due to ongoing anemia. Plan is for an EGD today. Blood pressure 108/71, afebrile, 98% on room air. 02/14/2021 Patient is lying in the bed comfortably. Still complains of generalized weakness. Nausea improved. Denies any complaints of chest pain or shortness of breath. Patient underwent EGD yesterday showed scattered nonbleeding gastric and duodenal AV malformation status post argon plasma coagulation. Mild antral gastritis. Laboratory data showed WBC 2.7, hemoglobin 8.2. Platelets 96 other laboratory data reviewed. Patient is being continued iron supplementation, PPI. Patient is being current nadolol as per cardiology recommendations. 02/15/2021 Patient is currently lying in the bed. Complains of generalized weakness and dizziness with walking. Patient's blood pressure is on the lower side with systolic in 80s. Blood pressure medications are on hold and currently being continued nadolol only. No complaints of chest pain or shortness of breath. No headache or dizziness or lightheadedness. Laboratory data showed hemoglobin 7.2 today. Platelets 80 and WBC went up to 4.5. Sodium 129 potassium 4.3 chloride 99 bicarbonate 17.8 anion gap 12.2 and BUN 27.9 and creatinine 1.9 today. Cardiology recommends to hold off on cardiac catheterization to assess for severity of pulmonary hypertension due to significant anemia and pancytopenia and hypotension and other multiple medical problems. 02/21/2021 Patient is currently resting in the bed. Complains of generalized weakness and not eating well. No complaints of chest pain or shortness of breath. No fever no chills. Hemoglobin is 7.8 today. Platelet count is improving as well. Hemodynamically stable and saturating well on room air. Oncology and cardiology is on board. ROS Constitutional: Denied any fatigue denied any fever. Cardio vascular: denied any chest pain, palpitations Gastrointestinal denied any nausea vomiting, reports loose stool, denies blood in the stool Pulmonary: Denied any shortness of breath cough Neurologic denied any new focal deficits All inpatient medications were reviewed and appropriate changes in these medications as dictated in the interval history and assessment and plan. Objective - Vital Signs Vital signs: Vital Signs Temp 99.4 F 02/21/21 21:00 Pulse 97 02/21/21 21:00 Resp 20 02/21/21 21:00 BP 117/77 02/21/21 21:00 Pulse Ox 96 02/21/21 21:00 Intake & Output 02/21/21 02/21/21 02/22/21 06:59 18:59 06:59 Intake Total 500 100 Balance 500 100 Weight 112 kg Intake: Intake, IV Titration 100 Amount Sodium Ferric Gluconat- 100 Sucrose 125 mg In Sodium Chloride 0.9% 100 ml @ 100 mls/hr IVPB DAILY [facility] Rx#:[id number] Oral 500 Other: Voiding Method Toilet Toilet Urinal Urinal # Voids 3 3 # Bowel Movements 1 - Exam PHYSICAL EXAMINATION: GENERAL: The patient is alert and oriented x3, not in any acute distress. Well developed, well nourished. HEENT: Pupils are round and equally reacting to light. EOMI. No scleral icterus. Does have conjunctival pallor . Normocephalic, atraumatic. No pharyngeal erythema. No thyromegaly. CARDIOVASCULAR: S1 and S2 present. + systolic murmur, rubs, or gallops. PULMONARY: Chest is clear to auscultation, no wheezing or crackles. ABDOMEN: Soft, nontender, distended with fluid shift normoactive bowel sounds. No palpable organomegaly. MUSCULOSKELETAL: No joint swelling or deformity. EXTREMITIES: No cyanosis, clubbing, bilateral lower extremity edema NEUROLOGICAL: Gross neurological examination did not reveal any focal deficits. SKIN: No rashes. - Labs CBC & Chem 7: 11/13/21 07:40 02/20/21 05:44 Labs: Abnormal Lab Results - Last 24 Hours (Table) 02/21/21 Range/Units 07:40 WBC 3.0 L (3.8-10.6) k/uL RBC 2.32 L (4.30-5.90) m/uL Hgb 7.8 L (13.0-17.5) gm/dL Hct 23.6 L (39.0-53.0) % MCV 102.0 H (80.0-100.0) fL RDW 19.0 H (11.5-15.5) % Plt Count 102 L (150-450) k/uL Lymphocytes # (Manual) 0.30 L (1.0-4.8) k/uL Myelocytes # (Manual) 0.06 H (0) k/uL Microbiology - Last 24 Hours (Table) 02/18/21 15:39 Stool Culture - Final Stool Assessment and Plan Assessment: Assessment and plan -Anemia secondary to acute upper GI bleed from an AV malformation, hgb 7.8 - has received 4 units total, s/p Repeat EGD on 02/13 -Hyponatremia appears to be hypervolemic hyponatremia from cirrhosis. -Paroxysmal atrial fibrillation, not on anticoagulation due to anemia -Hypomagnesemia: Probably due to chronic alcohol abuse, replace per protocol we will add oral magnesium daily. -Nicotine use: Counseling was provided -Pulmonary hypertension - was scheduled for outpatient right and left cath on Tuesday 02/13, which is now on hold due to anemia. -Moderate to severe mitral regurgitation -Chronic diastolic congestive heart failure current EF is 55%, not in acute exacerbation -Chronic alcohol abuse -Volume overload secondary to cirrhosis, paracentesis ordered for today -Hypertension -Hypothyroidism DVT prophylaxis: No pharmacological anticoagulation because of GI bleed Plan: Continue on current medication regime ,monitoring and symptomatic treatment. Increase ambulation as tolerated. Maintain close monitoring of coags. May require transfer to tertiary center if hemoglobin fails to stabilize for potential AVM cauterization -currently no GI services in house this week .Prognosis guarded given multiple complex medical issues.
[2021-02-22] MEDS: LEVOTHYROXINE 100 MCG TAB PO SCH (06:17)
[2021-02-22] MEDS: HYDROcodone/APAP 10-325MG 1 EACH TAB PO PRN ×2 (06:20→19:57)
[2021-02-22] MEDS: MAGNESIUM OXIDE 400 MG TAB PO SCH ×2 (08:02→19:58)
[2021-02-22] MEDS: POTASSIUM CHLORIDE ER 10 MEQ TAB.ER.PRT PO SCH ×2 (08:03→19:58)
[2021-02-22] MEDS: PANTOPRAZOLE 40 MG/10 ML VIAL IV SCH (08:04)
[2021-02-22] MEDS: THIAMINE 100 MG TAB PO SCH (08:04)
[2021-02-22] MEDS: FOLIC ACID 1 MG TAB PO SCH (08:04)
[2021-02-22] MEDS: guaiFENesin 600 MG TABLET.ER PO SCH ×2 (08:04→19:58)
[2021-02-22] MEDS: FUROSEMIDE 40 MG TAB PO SCH (08:04)
[2021-02-22] MEDS: FERROUS SULFATE 325 MG TAB PO SCH ×2 (08:04→19:58)
[2021-02-22] MEDS: NICOTINE 14MG/24HR PATCH TRANSDERM SCH (08:09)
[2021-02-22] MEDS: ALBUTEROL HFA INHALER INHALATION PRN ×3 (11:42→20:03)
[2021-02-22] MEDS: QUEtiapine 50 MG TAB PO SCH (19:58)
--- NOTE | 2021-02-22 22:54 | P.PN ---
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 Patient is presently not on any anticoagulation or antiplatelet therapy with came in with very low hemoglobin generalized tiredness and weakness and found to have hemoglobin of 6.8 because of which patient was sent to the hospital. Patient does have pancytopenia directed have history of alcohol abuse and believed to have bone marrow suppression. Patient does have distention of the abdomen and may have ascites supposed to get an outpatient ultrasound today. Patient also has very low magnesium of 0.8. Patient is also hyponatremic his medications are not verified appears to be on Lasix for cirrhosis and volume overload secondary to that. Patient had normal ejection fraction the past patient is supposed to get cardiac catheterization as an outpatient this Tuesday. She does admit to having diarrhea and multiple or Doxil stress today and one episode of Doxil today. Gastric body will be consulted. 02/11/2021 Patient evaluated today resting in bed. He does report some diarrhea, he denies any blood in the stool. His hemoglobin today 7 status post 2 units of PRBC. Additional labs included white count of 1, RBC 1.94, platelet count of 100. Neutrophils are elevated at 0.39. Labs today show a magnesium of 1.4. Patient does report drinking a couple beers a day for many years. GI services consulted hematology for the pancytopenia. Cardiology consultation. Patient was planned for a right and left cardiac catheterization on Tuesday due to severely elevated RVSP of 102 found on echocardiogram. 02/12/21 Hemoglobin today came back at 6.5 we did transfuse 1 more unit of PRBCs. Additional labs included WBC of 1, RBC 1.78, hematocrit critical 18.7, there were no platelet counts available for today. Metabolic panel still pending. Ordered a paracentesis from IR for abdominal ascites on ultrasound. Vital show a blood pressure 104/64, afebrile. Pending consultation from hematology services. Repeat labs in the morning. 02/13/2021 Hemoglobin is 6.8 today and he is transfusing 1 unit of PRBCs. Additional labs are white blood cell count 1.1, platelet 85, INR today 1.1. Sodium levels 132 magnesium 1.7, potassium 4.1. Alk phos increased to 247, total bili 2.7, albumin is 5.1. Folate was found to be 3.8, was started on oral replacement from hematology. Paracentesis was completed at the bedside this afternoon. Recent EGD/colonoscopy in August 2020 showed antral gastritis and polypectomy. 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 Patient is frustrated and not underst anding why his blood counts are continuing to be low. He denies that this is because of his chronic alcohol abuse. Apparently has not followed up as recommended in the office with hematology services for iron transfusions. Patient continues in A. fib, rate controlled he is on metoprolol and Lasix and iron. Cardiac catheterization is still on hold due to ongoing anemia. Plan is for an EGD today. Blood pressure 108/71, afebrile, 98% on room air. 02/14/2021 Patient is lying in the bed comfortably. Still complains of generalized weakness. Nausea improved. Denies any complaints of chest pain or shortness of breath. Patient underwent EGD yesterday showed scattered nonbleeding gastric and duodenal AV malformation status post argon plasma coagulation. Mild antral gastritis. Laboratory data showed WBC 2.7, hemoglobin 8.2. Platelets 96 other laboratory data reviewed. Patient is being continued iron supplementation, PPI. Patient is being current nadolol as per cardiology recommendations. 02/15/2021 Patient is currently lying in the bed. Complains of generalized weakness and dizziness with walking. Patient's blood pressure is on the lower side with systolic in 80s. Blood pressure medications are on hold and currently being continued nadolol only. No complaints of chest pain or shortness of breath. No headache or dizziness or lightheadedness. Laboratory data showed hemoglobin 7.2 today. Platelets 80 and WBC went up to 4.5. Sodium 129 potassium 4.3 chloride 99 bicarbonate 17.8 anion gap 12.2 and BUN 27.9 and creatinine 1.9 today. Cardiology recommends to hold off on cardiac catheterization to assess for severity of pulmonary hypertension due to significant anemia and pancytopenia and hypotension and other multiple medical problems. 02/21/2021 Patient is currently resting in the bed. Complains of generalized weakness and not eating well. No complaints of chest pain or shortness of breath. No fever no chills. Hemoglobin is 7.8 today. Platelet count is improving as well. Hemodynamically stable and saturating well on room air. Oncology and cardiology is on board. 02/22/2021 Patient is able to ambulate in the room. Denies any complaints of chest pain. Still feels very weak and some exertional dyspnea. No fever no chills. Lab no chest pain or shortness of breath. Laboratory showed WBC count improved to 3.0 hemoglobin 7.8 and platelets 102. Continue with PT OT and possible discharge to rehab. Patient is tolerating oral diet. Denied nausea vomiting abdominal pain. Patient did have episode of diarrhea today.. No cough or sputum production. Patient has been afebrile. Medical medications reviewed. ROS Constitutional: Denied any fatigue denied any fever. Cardio vascular: denied any chest pain, palpitations Gastrointestinal denied any nausea vomiting, reports loose stool, denies blood in the stool Pulmonary: Denied any shortness of breath cough Neurologic denied any new focal deficits All inpatient medications were reviewed and appropriate changes in these medications as dictated in the interval history and assessment and plan. Objective - Vital Signs Vital signs: Vital Signs Temp 99.4 F 02/22/21 12:42 Pulse 52 L 02/22/21 12:42 Resp 18 02/22/21 12:42 BP 118/76 02/22/21 12:42 Pulse Ox 97 02/22/21 12:42 Intake & Output 02/21/21 02/22/21 02/22/21 18:59 06:59 18:59 Intake Total 100 400 Output Total 0 Balance 100 400 Weight 110 kg Intake: Intake, IV Titration 100 Amount Sodium Ferric Gluconat- 100 Sucrose 125 mg In Sodium Chloride 0.9% 100 ml @ 100 mls/hr IVPB DAILY [facility] Rx#:[id number] Oral 400 Output: Stool 0 Other: Voiding Method Toilet Toilet Toilet Urinal Urinal Urinal # Voids 3 2 - Exam PHYSICAL EXAMINATION: GENERAL: The patient is alert and oriented x3, not in any acute distress. Well developed, well nourished. HEENT: Pupils are round and equally reacting to light. EOMI. No scleral icterus. Does have conjunctival pallor . Normocephalic, atraumatic. No pharyngeal erythema. No thyromegaly. CARDIOVASCULAR: S1 and S2 present. + systolic murmur, rubs, or gallops. PULMONARY: Chest is clear to auscultation, no wheezing or crackles. ABDOMEN: Soft, nontender, distended with fluid shift normoactive bowel sounds. No palpable organomegaly. MUSCULOSKELETAL: No joint swelling or deformity. EXTREMITIES: No cyanosis, clubbing, bilateral lower extremity edema NEUROLOGICAL: Gross neurological examination did not reveal any focal deficits. SKIN: No rashes. - Labs CBC & Chem 7: 02/21/21 07:40 02/20/21 05:44 Labs: Microbiology - Last 24 Hours (Table) 02/18/21 15:39 Stool Culture - Final Stool Assessment and Plan Assessment: Assessment and plan -Anemia secondary to acute upper GI bleed from an AV malformation, hgb 7.8 - has received 4 units total, s/p Repeat EGD on 02/13 -Hyponatremia appears to be hypervolemic hyponatremia from cirrhosis. -Paroxysmal atrial fibrillation, not on anticoagulation due to anemia -Hypomagnesemia: Probably due to chronic alcohol abuse, replace per protocol we will add oral magnesium daily. -Nicotine use: Counseling was provided -Pulmonary hypertension - was scheduled for outpatient right and left cath on Tuesday 02/13, which is now on hold due to anemia. -Moderate to severe mitral regurgitation -Chronic diastolic congestive heart failure current EF is 55%, not in acute exacerbation -Chronic alcohol abuse -Volume overload secondary to cirrhosis, paracentesis ordered for today -Hypertension -Hypothyroidism DVT prophylaxis: No pharmacological anticoagulation because of GI bleed Plan: Continue on current medication regime ,monitoring and symptomatic treatment. Increase ambulation as tolerated. Maintain close monitoring of coags. May require transfer to tertiary center if hemoglobin fails to stabilize for potential AVM cauterization -currently no GI services in house this week .Prognosis guarded given multiple complex medical issues.
[2021-02-23] MEDS: LEVOTHYROXINE 100 MCG TAB PO SCH (06:15)
[2021-02-23 07:05] LABS: Anisocytosis Slight; MCH 34.1 pg (25.0-35.0); MCHC 34.2 g/dL (31.0-37.0); MCV 99.7 fL (80.0-100.0); Macrocytosis Moderate; Mean Platelet Volume 8.7; Platelet Count 140 k/uL (150-450); RBC 1.97 m/uL (4.30-5.90); RDW 19.6 % (11.5-15.5); WBC 2.7 k/uL (3.8-10.6)
[2021-02-23 07:17] LABS: African American GFR (CKD) >90 (>60 ml/min/1.73 sqM); Anion Gap 7 mmol/L; Blood Urea Nitrogen 13 mg/dL (9-20); Calcium 8.6 mg/dL (8.4-10.2); Carbon Dioxide 27 mmol/L (22-30); Chloride 96 mmol/L (98-107); Glucose 105 mg/dL (74-99); Non-African American GFR(CKD) >90 (>60 ml/min/1.73 sqM); Potassium 3.9 mmol/L (3.5-5.1); Sodium 130 mmol/L (137-145)
[2021-02-23 07:24] LABS: HGB 6.7 gm/dL (13.0-17.5)
[2021-02-23 07:25] LABS: HCT 19.7 % (39.0-53.0)
[2021-02-23] MEDS: PANTOPRAZOLE 40 MG/10 ML VIAL IV SCH (08:09)
[2021-02-23] MEDS: HYDROcodone/APAP 10-325MG 1 EACH TAB PO PRN ×3 (08:09→23:44)
[2021-02-23] MEDS: FOLIC ACID 1 MG TAB PO SCH (08:10)
[2021-02-23] MEDS: POTASSIUM CHLORIDE ER 10 MEQ TAB.ER.PRT PO SCH (08:10)
[2021-02-23] MEDS: MAGNESIUM OXIDE 400 MG TAB PO SCH ×2 (08:10→19:53)
[2021-02-23] MEDS: FUROSEMIDE 40 MG TAB PO SCH (08:10)
[2021-02-23] MEDS: guaiFENesin 600 MG TABLET.ER PO SCH ×2 (08:10→19:53)
[2021-02-23] MEDS: FERROUS SULFATE 325 MG TAB PO SCH ×2 (08:10→19:53)
[2021-02-23] MEDS: THIAMINE 100 MG TAB PO SCH (08:10)
[2021-02-23] MEDS: NICOTINE 14MG/24HR PATCH TRANSDERM SCH (08:13)
[2021-02-23 08:17] LABS: Band Neutrophils % 1 %; Eosinophils # (M) 0.05 k/uL (0-0.7); Lymphocytes # (M) 0.41 k/uL (1.0-4.8); Monocytes # (M) 0.49 k/uL (0-1.0); Myelocytes # (M) 0.03 k/uL (0); Myelocytes % 1 %; Neutrophils % (M) 63 %; Nucleated Red Blood Cells 0 /100 WBC (0-0); Total Cells Counted 100
[2021-02-23] MEDS ORDERED: ALPRAZolam 0.5 MG TAB PO PRN (08:57)
[2021-02-23] MEDS ORDERED: FUROSEMIDE 10 MG/ML 2 ML VIAL IV ONE ×2 (09:01→13:47)
[2021-02-23] MEDS: ALBUTEROL HFA INHALER INHALATION PRN ×3 (11:17→19:22)
--- NOTE | 2021-02-23 11:59 | P.PN ---
Subjective Progress Note Date: 02/23/21 Principal diagnosis: Anemia This a 65-year-old white male patient who presented to the emergency department with complaints of weakness and low hemoglobin done at his PCP office and was called to come to the emergency department for further evaluation. He has a past medical history including atrial fibrillation not on anticoagulation, heart failure, hypertension, alcohol dependence and thyroid disorder. Patient has a significant history of EtOH abuse since the age of [age] years old. Up to last year he was drinking 12-14 beers a day. Over the last year he states he's been cut down to 6-8 beers a week sometimes more. Was noted to have a hemoglobin of 6.8 on admission and was given 2 units of PRBC transfusion. Gastroenterology was consulted due to anemia two weeks ago. At that time on 02/13/21 patient underwent EGD with push enteroscopy with findings of scattered nonbleeding gastric and duodenal AVMs status post argon plasma coagulation with mild antral gastritis. He also had multiple previous admissions for possible GI bleed/anemia and underwent multiple endoscopic evaluation with findings of nonbleeding AVMs. He patient denies any abdominal pain, nausea, or vomiting. Denies any blood in his stool, states stools are dark related to oral iron. He's also been getting IV iron. Hematology is following patient for pancytopenia. Today his hemoglobin had dropped to 6.7 he is going to give 1 unit of PRBC transfusion. The WBC 2.7 hemoglobin 6.7 hematocrit 19.7 platelet count 140,000 Objective - Vital Signs Vital signs: Vital Signs Temp 97.4 F L 02/23/21 04:58 Pulse 78 02/23/21 04:58 Resp 18 02/23/21 04:58 BP 97/61 02/23/21 04:58 Pulse Ox 92 L 02/23/21 04:58 Intake & Output 02/22/21 02/23/21 02/23/21 18:59 06:59 18:59 Intake Total 750 Output Total 0 Balance 750 Weight 108.5 kg Intake: Oral 750 Output: Stool 0 Other: Voiding Method Toilet Toilet Urinal Urinal # Voids 2 3 # Bowel Movements 1 - Exam General appearance: The patient is alert, oriented, appears in no acute distress. HET: Head is normocephalic and atraumatic. Conjunctiva pink. Sclera anicteric. Neck: Supple without lymphadenopathy. Abdomen: Soft, nontender, nondistended with bowel sounds. No guarding or rigidity. Extremities: Normal skin color and turgor. Bilateral lower extremity edema. Skin: No rashes, mild jaundice. Pale. Neurological: No focal deficits. Alert and oriented x3 - Labs CBC & Chem 7: 02/23/21 05:57 02/23/21 05:57 Labs: Abnormal Lab Results - Last 24 Hours (Table) 02/23/21 02/23/21 02/23/21 Range/Units 05:57 05:57 05:57 WBC 2.7 L (3.8-10.6) k/uL RBC 1.97 L (4.30-5.90) m/uL Hgb 6.7 L* (13.0-17.5) gm/dL Hct 19.7 L* (39.0-53.0) % RDW 19.6 H (11.5-15.5) % Plt Count 140 L (150-450) k/uL Lymphocytes # (Manual) 0.41 L (1.0-4.8) k/uL Myelocytes # (Manual) 0.03 H (0) k/uL Sodium 130 L (137-145) mmol/L Chloride 96 L (98-107) mmol/L Creatinine 0.62 L (0.66-1.25) mg/dL Glucose 105 H (74-99) mg/dL Crossmatch See Detail Assessment and Plan (1) Symptomatic anemia Narrative/Plan: 65-year-old male with history of chronic anemia along with history of Acute GI blood loss anemia. Full comorbidities including history of atrial fibrillation and coronary artery disease. However patient has not been on anticoagulation currently. Has a history of GI bleed/anemia and has had multiple endoscopic evaluations. He has had findings of nonbleeding AVMs in the past. During this admission he underwent a push enteroscopy on 02/13/2021 that time showed nonbleeding and underwent EGD and colonoscopy in August of this year by Dr. Corbett with findings of antral gastritis and polypectomy. 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 Power showing nonbleeding gastric and duodenal AVMs status post argon plasma coagulation. Patient has a significant history of alcohol abuse since the age of [age] years old for which she states over the last year he has cut down but still drinks weekly. He denies any previous history of liver disease however he has been admitted with pancytopenia in the past and has seen hematology for which he was supposed to have follow-up IV iron infusions and further workup. Pathology has been following for pancytopenia. He continues to deny any signs or symptoms of GI bleed. Likely anemia related to underlying liver cirrhosis and bone marrow suppression. Iron studies were not consistent with an iron deficiency anemia. Patient also had negative occult stool. Anemia of chronic disease likely related to underlying cirrhosis of liver and portal hypertension. Current Visit: No Status: Acute Code(s): D64.9 - ANEMIA, UNSPECIFIED SNOMED Code(s): 334330999 (2) Liver cirrhosis, alcoholic Narrative/Plan: Pancytopenia likely due to underlying liver disease. Patient also underwent paracentesis with 2 L of fluid removed with fluid studies, cytology showed no malignant cells. SAAG score cannot be calculated, and his laboratory has changed systems not compatible with scoring. Current Visit: No Status: Acute Code(s): K70.30 - ALCOHOLIC CIRRHOSIS OF LIVER WITHOUT ASCITES SNOMED Code(s): 694084915 (3) Alcohol abuse Current Visit: No Status: Acute Code(s): F10.10 - ALCOHOL ABUSE, UNCOMPLICATED SNOMED Code(s): 34756511 (4) Pancytopenia Narrative/Plan: Pancytopenia likely related to underlying liver disease and alcoholic cirrhosis of the liver. Current Visit: Yes Status: Chronic Priority: Medium Code(s): D61.818 - OTHER PANCYTOPENIA SNOMED Code(s): 695589507 (5) Atrial fibrillation Narrative/Plan: Cardiology on consult, cardiac catheterization has been deferred. Current Visit: No Status: Acute Code(s): I48.91 - UNSPECIFIED ATRIAL FIBRILLATION SNOMED Code(s): 98696052 (6) Ascites Narrative/Plan: Status post paracentesis with 2 L of fluid removed. Cytology negative for malignant cells. Likely from underlying liver disease related to alcoholic cirrhosis of the liver and portal hypertension. Current Visit: Yes Status: Acute Code(s): R18.8 - OTHER ASCITES SNOMED Code(s): 685201771 Plan: 1. Agree with PRBC transfusion, recommend 2 units of PRBC transfusion 2. Patient is status post EGD with push enteroscopy 02/13/2021 with no active bleeding 3. Repeat daily CBC transfuse her hemoglobin less than 7 4. Hematology for pancytopenia, appreciate their recommendations 5. Alcohol abstinence 6. Continue Lasix 40 mg daily 7. Aldactone 100 mg daily 8. No plans for any further endoscopic evluation. Anemia likely related to anemia of chronic disease related to underlying cirrhosis of liver and portal hypertension Thank you for this consultation, we will continue to follow, However patient is cleared for discharge from GI after transfusion. Dr. Anderson Power I agree with the dictator's note, documented as a scribe by Niki Davis.
--- NOTE | 2021-02-23 12:56 | P.PN ---
Subjective Progress Note Date: 02/23/21 Principal diagnosis: pancytopenia 2/2 ETOH marrow damage In f/u pt feels ok, he is getting 1 unit PRBCs and has received parenteral iron. No acute physical c/o. Objective - Vital Signs Vital signs: Vital Signs Temp 98.1 F 02/23/21 11:14 Pulse 96 02/23/21 11:14 Resp 18 02/23/21 11:14 BP 105/67 02/23/21 11:14 Pulse Ox 97 02/23/21 11:14 Intake & Output 02/22/21 02/23/21 02/23/21 18:59 06:59 18:59 Intake Total 750 0 Output Total 0 Balance 750 0 Weight 108.5 kg Intake: Oral 750 Blood Product 0 Rc As-1 Unit 0 [id number] Output: Stool 0 Other: Voiding Method Toilet Toilet Toilet Urinal Urinal Urinal # Voids 2 3 # Bowel Movements 1 - Constitutional General appearance: Present: average body habitus, cooperative, no acute distress - EENT Eyes: Present: anicteric sclerae, edentulous ENT: Present: hearing grossly normal - Respiratory Details: resp even and unlabored - Cardiovascular Details: skin warm and dry to touch, pedal pulses palpable through 1+ edema - Peripheral edema leg Peripheral Edema: bilateral: Trace - Integumentary Integumentary: Present: pale - Neurologic Neurologic: Present: CNII-XII intact - Musculoskeletal Musculoskeletal: Present: generalized weakness, strength equal bilaterally - Psychiatric Psychiatric: Present: A&O x's 3, appropriate affect, intact judgment & insight - Labs CBC & Chem 7: 02/23/21 05:57 02/23/21 05:57 Labs: Abnormal Lab Results - Last 24 Hours (Table) 02/23/21 02/23/21 02/23/21 Range/Units 05:57 05:57 05:57 WBC 2.7 L (3.8-10.6) k/uL RBC 1.97 L (4.30-5.90) m/uL Hgb 6.7 L* (13.0-17.5) gm/dL Hct 19.7 L* (39.0-53.0) % RDW 19.6 H (11.5-15.5) % Plt Count 140 L (150-450) k/uL Lymphocytes # (Manual) 0.41 L (1.0-4.8) k/uL Myelocytes # (Manual) 0.03 H (0) k/uL Sodium 130 L (137-145) mmol/L Chloride 96 L (98-107) mmol/L Creatinine 0.62 L (0.66-1.25) mg/dL Glucose 105 H (74-99) mg/dL Crossmatch See Detail Microbiology - Last 24 Hours (Table) 02/13/21 12:30 Acid Fast Bacilli Smear - Final Abdominal Fluid Acid Fast Bacilli Culture - Preliminary Assessment and Plan (1) Pancytopenia Narrative/Plan: Progressive over the last 3 years per this medical record. IV iron and folic acid for deficiencies. He is s/p 5 doses of IV iron, 6 units PRBCs. His plt have increased since admit, WBC is stable. Work up has not identified any malignant underlying cause for pancytopenia. Encourage lab monitoring and ETOH abstinence. Recommend F/U CBC in 1-2 weeks and iron panel in 1 month with PCP-pt is more inclined to see his PCP then f/u with Heme. Did make a 1 mo f/u with Hem/Onc if pt able to make appt. Current Visit: Yes Status: Chronic Priority: Medium Code(s): D61.818 - OTHER PANCYTOPENIA SNOMED Code(s): 286512802
--- NOTE | 2021-02-23 14:31 | P.DS ---
Providers Date of admission: 02/10/21 13:06 Expected date of discharge: 02/23/21 Attending physician: Cosmo Light MD Consults: 02/10/21 12:53 Consult Physician Routine Consulting Provider: Catherine Power Consult Reason/Comments: anemia, suspected GI bleed Do you want consulting provider notified?: Yes 02/11/21 08:21 Consult Physician Routine Consulting Provider: Pablo Daigle Consult Reason/Comments: known to you, scheduled for cardiac cath this week Do you want consulting provider notified?: Yes 02/11/21 11:35 Consult Physician Routine Consulting Provider: Shayan Corona Consult Reason/Comments: Pancytopenia, alcoholic cirrhosis of liver Do you want consulting provider notified?: Yes Primary care physician: Lucia Light [facility] Course: Final Diagnoses: -Symptomatic Anemia secondary to acute upper GI bleed from AV malformation,s/p transfusion of 6 units of packed RBCs, s/p Repeat EGD on 02/13 reported nonbleeding AVMs, suspect chronic -probably related to underlying liver cirrhosis, portal hypertension. -Pancytopenia suspected to be related to bone marrow suppression from alcohol abuse. Patient is scheduled to follow-up with hematology. -Volume overload secondary to cirrhosis, status post paracentesis -Hyponatremia appears to be hypervolemic hyponatremia from cirrhosis. -Paroxysmal atrial fibrillation, not on anticoagulation due to anemia -Hypomagnesemia: Probably due to chronic alcohol abuse, replace per protocol we will add oral magnesium daily. -Nicotine use: Counseling was provided -Pulmonary hypertension - was scheduled for outpatient right and left cath on Tuesday 02/13, which is now on hold due to anemia. -Moderate to severe mitral regurgitation -Mild Acute component on Chronic diastolic congestive heart failure current EF is 55% -Chronic alcohol abuse with alcoholic liver cirrhosis -Hypertension -Hypothyroidism -Hypoalbuminemia with subsequent third spacing, resolved Hospital course: This is a 65-year-old gentleman admitted with anemia secondary to acute upper GI bleed from AV malformation, hyponatremia, proximal atrial fibrillation, and multiple other medical issues. Hemoglobin 6.8,1 unit of packed RBCs ordered. Anticoagulation on hold at this time . Hematology following .borderline hypotension with Lasix, Norvasc and YOLANDA inhibitor on hold. Worsening renal function with creatinine up to 2.4. Denies chest pain, palpitations or increasing shortness of breath. Chest x-ray reporting patchy left perihilar infiltrate, correlate for asymmetric pulmonary edema versus developing pneumonia. Maintaining O2 sats in the 90s on room air. Afebrile, normal WBC. Ascites cultures/cytology pending. Sodium 128. 02/17/21 receive 1 unit of packed RBCs yesterday with current hemoglobin up to 8.1, platelets 83. Systolic blood pressure up into the low 100s this morning. Maintaining O2 sats in the 90s on room air. BUN down to 36.2, creatinine 1.6. T bili/LFTs trending down. Albumin 3.3, third spacing present. Receiving IV iron as per hematology. Denies nausea, vomiting. Loose BM reported. Denies abdominal pain. Denies chest pain, palpitations or shortness of breath. Ascitic fluid cultures pending. Afebrile, WBC 3.5. 02/18/2021 ongoing diarrhea, C. difficile colitis ruled out. Staff reports stool brown with specks of blood. Denies abdominal pain. Hemoglobin 7.7, creatinine pending. Ascites fluid cultures reporting negative. Afebrile, WBC 2.7. 02/19/2021 hemoglobin decreased to 7.5, platelets 77. Vital signs stable, no tachycardia .Peritoneal fluid cytology reporting no malignant cells. Abdominal x-ray completed yesterday afternoon reporting generalized increased density, may reflect underlying ascites fluid, nonspecific small bowel measuring up to 3.4 cm with some air-fluid levels, splenomegaly measuring 19.3 cm. Denies bloating, nausea or vomiting . Denies abdominal pain. Denies cough, congestion. Denies chest pain, palpitations or shortness of breath .maintained on oral Lasix.diarrhea subsided, reports formed brown bowel movement this morning, less flatus. Complains of generalized weakness, PT evaluation pending. Denies lightheadedness, dizziness or focal deficits. 02/20/2021 CBC pending.Denies nausea vomiting or diarrhea. Denies bloating. Denies abdominal pain. No active bleeding. VSS. Afebrile, T-max 99.5, maintaining O2 sats in the high 90s to 100% on room air. Denies chest pain, palpitations or shortness of breath. Reevaluated by GI, no further endoscopy evaluation recommended, pancytopenia related to bone marrow suppression secondary to alcohol and they do not recommend transfer. GI cleared patient for discharge after his 2nd unit of packed RBCs is transfused today. No blood in stools, no signs or symptoms of bleeding. Vital signs stable. Denies chest pain, palpitations or shortness of breath. Denies lightheadedness, dizziness or focal deficits. Significant clinical improvement. Patient will be discharged home today in a stable condi tion with guarded prognosis. Alcohol abstinence reinforced. Close monitoring of CBC with repeat outpatient labs scheduled in 3 days. Patient is to follow-up with PCP within 3 days. The impression and plan of care has been dictated as directed. : I performed a history and examination of this patient, discussed the same with the dictator. I agree with the dictator's note ,documented as a scribe. Any additional findings or plans will be noted. Patient Condition at Discharge: Stable Plan - Discharge Summary New Discharge Prescriptions: New Folic Acid 1 mg PO DAILY tab Thiamine [Vitamin B-1] 100 mg PO DAILY tab Nicotine 14Mg/24Hr Patch [Habitrol] 1 patch TRANSDERM DAILY patch Magnesium Oxide [Mag-Ox] 400 mg PO BID #0 tab Spironolactone [Aldactone] 100 mg PO DAILY #120 tab Continue HYDROcodone/APAP 10-325MG [[place] 10-325] 1 tab PO QID PRN PRN Reason: Pain Furosemide [Lasix] 40 mg PO DAILY QUEtiapine [SEROquel] 50 mg PO HS #0 Levothyroxine Sodium [Synthroid] 100 mcg PO DAILY Omeprazole 40 mg PO DAILY Ferrous Sulfate [Feosol] 325 mg PO BID #60 tab Albuterol Inhaler [Ventolin Hfa Inhaler] 2 puff INHALATION RT-QID PRN PRN Reason: Shortness Of Breath Nadolol [Corgard] 40 mg PO DAILY Discontinued Potassium Chloride [Potassium Chloride ER] 10 meq PO BID amLODIPine [Norvasc] 10 mg PO DAILY lisinopriL [Zestril] 40 mg PO DAILY Discharge Medication List HYDROcodone/APAP 10-325MG [[place] 10-325] 1 tab PO QID PRN 07/05/17 [History] Furosemide [Lasix] 40 mg PO DAILY 08/12/20 [History] Levothyroxine Sodium [Synthroid] 100 mcg PO DAILY 10/14/20 [History] Omeprazole 40 mg PO DAILY 10/14/20 [History] Ferrous Sulfate [Feosol] 325 mg PO BID #60 tab 10/18/20 [Rx] Albuterol Inhaler [Ventolin Hfa Inhaler] 2 puff INHALATION RT-QID PRN 02/10/21 [History] Nadolol [Corgard] 40 mg PO DAILY 02/10/21 [History] Folic Acid 1 mg PO DAILY tab 02/18/21 [Rx] Magnesium Oxide [Mag-Ox] 400 mg PO BID #0 tab 02/18/21 [Rx] Nicotine 14Mg/24Hr Patch [Habitrol] 1 patch TRANSDERM DAILY patch 02/18/21 [Rx] QUEtiapine [SEROquel] 50 mg PO HS #0 02/18/21 [Rx] Thiamine [Vitamin B-1] 100 mg PO DAILY tab 02/18/21 [Rx] Spironolactone [Aldactone] 100 mg PO DAILY #120 tab 02/23/21 [Rx] Follow up Appointment(s)/Referral(s): Shayan Corona MD [STAFF PHYSICIAN] - 3 Weeks (iron INfusions) Cosmo Light MD [STAFF PHYSICIAN] - 3 Days Pablo Daigle DO [STAFF PHYSICIAN] - 1 Week Catherine Power MD [STAFF PHYSICIAN] - 2 Weeks [facility], [NON-STAFF] - 1-2 Days & Gabino Downing Procedures [REFERRING] - As Needed Ambulatory/Diagnostic Orders: Complete Blood Count w/diff [LAB.AMB] Time Frame: 3 Days, Location: None Selected
[2021-02-23 17:20] VITALS: RESP 20
[2021-02-23 18:50] LABS: Anisocytosis Slight; Basophils % (A) 0 %; Eosinophils % (A) 1 %; HCT 25.5 % (39.0-53.0); Lymphocytes # (A) 0.6 k/uL (1.0-4.8); Lymphocytes % (A) 14 %; MCH 33.7 pg (25.0-35.0); Macrocytosis Slight; Mean Platelet Volume 8.6; Monocytes # (A) 0.4 k/uL (0-1.0); Monocytes % (A) 9 %; Neutrophils % (A) 74 %; Platelet Count 138 k/uL (150-450); RBC 2.58 m/uL (4.30-5.90); RDW 18.7 % (11.5-15.5); WBC 4.1 k/uL (3.8-10.6)
[2021-02-23 18:51] LABS: HGB 8.7 gm/dL (13.0-17.5)
[2021-02-23] MEDS: QUEtiapine 50 MG TAB PO SCH (19:49)
[2021-02-23] MEDS: ALPRAZolam 0.5 MG TAB PO PRN (19:53)
[2021-02-24 05:51] VITALS: BP 116/72; PULSE 84; TEMP 98.1
[2021-02-24] MEDS: LEVOTHYROXINE 100 MCG TAB PO SCH (06:22)
[2021-02-24 07:04] LABS: Anisocytosis Slight; HCT 23.9 % (39.0-53.0); HGB 8.3 gm/dL (13.0-17.5); MCH 34.3 pg (25.0-35.0); MCHC 34.8 g/dL (31.0-37.0); MCV 98.6 fL (80.0-100.0); Macrocytosis Slight; Mean Platelet Volume 8.4; Platelet Count 128 k/uL (150-450); RBC 2.42 m/uL (4.30-5.90); RDW 18.7 % (11.5-15.5); WBC 3.1 k/uL (3.8-10.6)
[2021-02-24] MEDS: FERROUS SULFATE 325 MG TAB PO SCH (07:52)
[2021-02-24] MEDS: NICOTINE 14MG/24HR PATCH TRANSDERM SCH (07:52)
[2021-02-24] MEDS: FOLIC ACID 1 MG TAB PO SCH (07:53)
[2021-02-24] MEDS: MAGNESIUM OXIDE 400 MG TAB PO SCH (07:55)
[2021-02-24] MEDS: THIAMINE 100 MG TAB PO SCH (07:55)
[2021-02-24] MEDS: guaiFENesin 600 MG TABLET.ER PO SCH (08:10)
[2021-02-24] MEDS: PANTOPRAZOLE 40 MG/10 ML VIAL IV SCH (08:11)
[2021-02-24] MEDS: ALPRAZolam 0.5 MG TAB PO PRN (08:11)
[2021-02-24] MEDS: FUROSEMIDE 40 MG TAB PO SCH (08:11)
[2021-02-24] MEDS ORDERED: SPIRONOLACTONE 25 MG TAB PO SCH (09:00)
--- NOTE | 2021-02-24 11:52 | P.PN ---
Subjective Progress Note Date: 02/24/21 Principal diagnosis: Anemia This a 65-year-old white male patient who presented to the emergency department with complaints of weakness and low hemoglobin done at his PCP office and was called to come to the emergency department for further evaluation. He has a past medical history including atrial fibrillation not on anticoagulation, heart failure, hypertension, alcohol dependence and thyroid disorder. Patient has a significant history of EtOH abuse since the age of [age] years old. Up to last year he was drinking 12-14 beers a day. Over the last year he states he's been cut down to 6-8 beers a week sometimes more. Was noted to have a hemoglobin of 6.8 on admission and was given 2 units of PRBC transfusion. Gastroenterology was consulted due to anemia two weeks ago. At that time on 02/13/21 patient underwent EGD with push enteroscopy with findings of scattered nonbleeding gastric and duodenal AVMs status post argon plasma coagulation with mild antral gastritis. He also had multiple previous admissions for possible GI bleed/anemia and underwent multiple endoscopic evaluation with findings of nonbleeding AVMs. His last EGD/colonoscopy was 08/[address] Corbett was significant for mild gastritis and polypectomy. Apparently yesterday evening the patient had a bowel movement with multiple maroon-colored clots. He did receive 2 units of PRBC yesterday for hemoglobin of 6.7. His repeat hemoglobin yesterday was 8.7 with a repeat this morning of 8.3, platelet count 128,000. Patient states he had 3 soft brown bowel movements through the night, however nursing reported that there was some small streaks of blood. Today he denies any abdominal pain, nausea, or vomiting. He is been tolerating his diet yesterday. Objective - Vital Signs Vital signs: Vital Signs Temp 98.1 F 02/24/21 04:30 Pulse 84 02/24/21 04:30 Resp 20 02/24/21 04:30 BP 116/72 02/24/21 04:30 Pulse Ox 97 02/24/21 04:30 Intake & Output 02/23/21 02/24/21 02/24/21 18:59 06:59 18:59 Intake Total 620 300 Output Total 2 Balance 620 298 Weight 109 kg Intake: Oral 300 Blood Product 620 Rc As-1 Unit 310 [id number] Rc As-1 Unit 310 [id number] Output: Stool 0 Urine/Stool Mix 2 Other: Voiding Method Toilet Toilet Urinal Urinal # Voids 1 # Bowel Movements 2 - Exam General appearance: The patient is alert, oriented, appears in no acute distre ss. HET: Head is normocephalic and atraumatic. Conjunctiva pink. Sclera anicteric. Neck: Supple without lymphadenopathy. Abdomen: Soft, nontender, nondistended with bowel sounds. No guarding or rigidity. Extremities: Normal skin color and turgor. Bilateral lower extremity edema. Skin: No rashes, mild jaundice. Pale. Neurological: No focal deficits. Alert and oriented x3 - Labs CBC & Chem 7: 02/24/21 05:51 02/23/21 05:57 Labs: Abnormal Lab Results - Last 24 Hours (Table) 02/23/21 02/23/21 02/23/21 Range/Units 05:57 05:57 18:23 WBC (3.8-10.6) k/uL RBC 2.58 L (4.30-5.90) m/uL Hgb 8.7 L D (13.0-17.5) gm/dL Hct 25.5 L (39.0-53.0) % RDW 18.7 H (11.5-15.5) % Plt Count 138 L (150-450) k/uL Lymphocytes # 0.6 L (1.0-4.8) k/uL Lymphocytes # (Manual) 0.41 L (1.0-4.8) k/uL Myelocytes # (Manual) 0.03 H (0) k/uL Crossmatch See Detail 02/24/21 Range/Units 05:51 WBC 3.1 L (3.8-10.6) k/uL RBC 2.42 L (4.30-5.90) m/uL Hgb 8.3 L (13.0-17.5) gm/dL Hct 23.9 L (39.0-53.0) % RDW 18.7 H (11.5-15.5) % Plt Count 128 L (150-450) k/uL Lymphocytes # (1.0-4.8) k/uL Lymphocytes # (Manual) (1.0-4.8) k/uL Myelocytes # (Manual) (0) k/uL Crossmatch Microbiology - Last 24 Hours (Table) 02/18/21 15:39 Stool Culture - Final Stool 02/13/21 12:30 Acid Fast Bacilli Smear - Final Abdominal Fluid Acid Fast Bacilli Culture - Preliminary Assessment and Plan (1) Symptomatic anemia Narrative/Plan: 65-year-old male with history of chronic anemia along with history of Acute GI blood loss anemia. Full comorbidities including history of atrial fibrillation and coronary artery disease. However patient has not been on anticoagulation currently. Has a history of GI bleed/anemia and has had multiple endoscopic evaluations. He has had findings of nonbleeding AVMs in the past. During this admission he underwent a push enteroscopy on 02/13/2021 that time showed nonbleeding and underwent EGD and colonoscopy in August of this year by Dr. Corbett with findings of antral gastritis and polypectomy. 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 Power showing nonbleeding gastric and duodenal AVMs status post argon plasma coagulation. Patient has a significant history of alcohol abuse since the age of [age] years old for which she states over the last year he has cut down but still drinks weekly. He denies any previous history of liver disease however he has been admitted with pancytopenia in the past and has seen hematology for which he was supposed to have follow-up IV iron infusions and further workup. Pathology has been following for pancytopenia. He continues to deny any signs or symptoms of GI bleed. Likely anemia related to underlying liver cirrhosis and bone marrow suppression. Iron studies were not consistent with an iron deficiency anemia. Patient also had negative occult stool. Anemia of chronic disease likely related to underlying cirrhosis of liver and portal hypertension. Patient had all movement yesterday evening with multiple maroon-colored clots. Hemoglobin has remained stable. Discuss with patient recommend repeat EGD with possible push enteroscopy and colonoscopy tomorrow. However patient states he has not had any further bleeding and he states that he would like to go home today and is refusing at this time any further endoscopic evaluation would like to do as an outpatient. Current Visit: No Status: Acute Code(s): D64.9 - ANEMIA, UNSPECIFIED SNOMED Code(s): 169363073 (2) Liver cirrhosis, alcoholic Narrative/Plan: Pancytopenia likely due to underlying liver disease. Patient also underwent paracentesis with 2 L of fluid removed with fluid studies, cytology showed no malignant cells. SAAG score cannot be calculated, and his laboratory has ch anged systems not compatible with scoring. Current Visit: No Status: Acute Code(s): K70.30 - ALCOHOLIC CIRRHOSIS OF LIVER WITHOUT ASCITES SNOMED Code(s): 578058031 (3) Alcohol abuse Current Visit: No Status: Acute Code(s): F10.10 - ALCOHOL ABUSE, UNCOMPLICATED SNOMED Code(s): 28888474 (4) Pancytopenia Narrative/Plan: Pancytopenia likely related to underlying liver disease and alcoholic cirrhosis of the liver. Current Visit: Yes Status: Chronic Priority: Medium Code(s): D61.818 - OTHER PANCYTOPENIA SNOMED Code(s): 892704183 (5) Atrial fibrillation Narrative/Plan: Cardiology on consult, cardiac catheterization has been deferred. Current Visit: No Status: Acute Code(s): I48.91 - UNSPECIFIED ATRIAL FIBRILLATION SNOMED Code(s): 44948726 (6) Ascites Narrative/Plan: Status post paracentesis with 2 L of fluid removed. Cytology negative for malignant cells. Likely from underlying liver disease related to alcoholic cirrhosis of the liver and portal hypertension. Current Visit: Yes Status: Acute Code(s): R18.8 - OTHER ASCITES SNOMED Code(s): 616829399 Plan: 1. Continue symptomatic and supportive care 2. Patient is status post EGD with push enteroscopy 02/13/2021 with no active bleeding 3. Repeat daily CBC transfuse her hemoglobin less than 7 4. Follow up outpatient with hematology for pancytopenia 5. Alcohol abstinence 6. Continue Lasix 40 mg daily 7. Aldactone 100 mg daily 8. Discussed with patient recommendation for repeat EGD with possible push enteroscopy and colonoscopy tomorrow. However patient at this time declines to do any further endoscopic evaluation during this hospitalization would like to be discharged and follow up outpatient. Patient will have appointment scheduled for outpatient EGD with possible push enteroscopy and colonoscopy for 03/03/[address] Power. Thank you for this consultation. Dr. Anderson Power I agree with the dictator's note, documented as a scribe by Niki Davis.
[2021-02-24 12:01] LABS: Band Neutrophils % 2 %; Basophils # (M) 0.03 k/uL (0-0.2); Lymphocytes # (M) 0.43 k/uL (1.0-4.8); Monocytes # (M) 0.31 k/uL (0-1.0); Neutrophils % (M) 73 %; Nucleated Red Blood Cells 0 /100 WBC (0-0); Total Cells Counted 100
[2021-02-24] MEDS ORDERED: PEG 3350-NA SULF,BICARB,CL/KCL 4,000 ML BOTTLE PO ONE (16:00)
== END 2021-02-24 13:08 | disposition home health service (06) | DRG 378 ==
LOC: EC 10:32 → 5NMEDONC 13:06
PROVIDERS: ADMIT Family Medicine; ATTEND Family Medicine
PROC: 30233N1 Transfusion of Nonautologous Red Blood Cells into Peripheral Vein, Percutaneous Approach (ICD-10-PCS; 2021-02-10)
PROC: 0W3P8ZZ Control Bleeding in Gastrointestinal Tract, Via Natural or Artificial Opening Endoscopic (ICD-10-PCS; principal; 2021-02-13 07:55)
DX: K31.811 Angiodysplasia of stomach and duodenum with bleeding (principal); D61.818 Other pancytopenia; D62 Acute posthemorrhagic anemia; I48.20 Chronic atrial fibrillation, unspecified; I50.32 Chronic diastolic (congestive) heart failure; K76.6 Portal hypertension; E87.1 Hypo-osmolality and hyponatremia; D53.9 Nutritional anemia, unspecified; K70.31 Alcoholic cirrhosis of liver with ascites; Z20.822 Contact with and (suspected) exposure to COVID-19; D63.8 Anemia in other chronic diseases classified elsewhere; E03.9 Hypothyroidism, unspecified; E78.5 Hyperlipidemia, unspecified; E83.42 Hypomagnesemia; E88.09 Other disorders of plasma-protein metabolism, not elsewhere classified; F17.200 Nicotine dependence, unspecified, uncomplicated; F10.20 Alcohol dependence, uncomplicated; F41.9 Anxiety disorder, unspecified; I08.1 Rheumatic disorders of both mitral and tricuspid valves; I25.10 Atherosclerotic heart disease of native coronary artery without angina pectoris; I11.0 Hypertensive heart disease with heart failure; I27.20 Pulmonary hypertension, unspecified; I48.0 Paroxysmal atrial fibrillation; K29.70 Gastritis, unspecified, without bleeding; Z79.890 Hormone replacement therapy; Z79.899 Other long term (current) drug therapy; Z82.49 Family history of ischemic heart disease and other diseases of the circulatory system
CPT/HCPCS: 36415; 43270; 49083; 71045; 71046; 74019; 76705; 80048; 80053; 81003; 82042; 82272; 82607; 82728; 82746; 82945; 83010; 83540; 83550; 83615; 83630; 83735; 84157; 84443; 85025; 85045; 85610; 85730; 86850; 86900; 86901; 86920; 87045; 87046; 87070; 87075; 87102; 87116; 87205; 87206; 87324; 87328; 87329; 87635; 88108; 88305; 89050; 93005; 94640; 96361; 96365; 96375; 99285

== ENCOUNTER 2021-03-06 07:09 | Inpatient (IN) | payer MEDICARE ==
[2021-03-06] MEDS ORDERED: ALBUTEROL HFA INHALER INHALATION STA (07:26)
[2021-03-06] MEDS ORDERED: methylPREDNISolone SOD SUCCI 125 MG/2 ML VIAL IV STA (07:26)
[2021-03-06] MEDS ORDERED: CEFEPIME 2 GM in SODIUM CHLORIDE 0.9% 100 ML IVPB STA (07:50)
[2021-03-06 07:53] LABS: Anisocytosis Slight; HCT 21.2 % (39.0-53.0); HGB 7.2 gm/dL (13.0-17.5); MCH 33.3 pg (25.0-35.0); MCHC 33.8 g/dL (31.0-37.0); MCV 98.5 fL (80.0-100.0); Macrocytosis Slight; Mean Platelet Volume 8.4; Platelet Count 108 k/uL (150-450); Poikilocytosis Slight; RBC 2.15 m/uL (4.30-5.90); WBC 7.4 k/uL (3.8-10.6)
--- NOTE | 2021-03-06 07:59 | ED ---
General Adult HPI - General Chief complaint: Shortness of Breath Stated complaint: Weakness Time Seen by Provider: 03/06/21 07:17 Source: patient, RN notes reviewed, old records reviewed Mode of arrival: ambulatory Limitations: no limitations - History of Present Illness Initial comments: 65-year-old male presenting for evaluation of cough, dyspnea. Patient states he has had a productive cough for the past one week. He has had significant sputum production which is predominantly yellow. He reports subjective fever and chills. He had a recent hospital admission for gastrointestinal hemorrhage. He was discharged with referral for outpatient endoscopy. He does have a history of atrial fibrillation and CHF. He states that he recently quit smoking. - Related Data Home Medications Medication Instructions Recorded Confirmed HYDROcodone/APAP 10-325MG [[place] 1 tab PO QID PRN 07/05/17 02/10/21 10-325] Furosemide [Lasix] 40 mg PO DAILY 08/12/20 02/10/21 Levothyroxine Sodium [Synthroid] 100 mcg PO DAILY 10/14/20 02/10/21 Omeprazole 40 mg PO DAILY 10/14/20 02/10/21 Albuterol Inhaler [Ventolin Hfa 2 puff INHALATION RT-QID PRN 02/10/21 02/10/21 Inhaler] Nadolol [Corgard] 40 mg PO DAILY 02/10/21 02/10/21 Previous Rx's Medication Instructions Recorded Ferrous Sulfate [Feosol] 325 mg PO BID #60 tab 10/18/20 Folic Acid 1 mg PO DAILY tab 02/18/21 Magnesium Oxide [Mag-Ox] 400 mg PO BID #0 tab 02/18/21 Nicotine 14Mg/24Hr Patch [Habitrol] 1 patch TRANSDERM DAILY patch 02/18/21 QUEtiapine [SEROquel] 50 mg PO HS #0 02/18/21 Thiamine [Vitamin B-1] 100 mg PO DAILY tab 02/18/21 Spironolactone [Aldactone] 100 mg PO DAILY #120 tab 02/23/21 Allergies Allergy/AdvReac Type Severity Reaction Status Date / Time cholesterol meds AdvReac See Uncoded 03/06/21 07:24 comments Review of Systems ROS Statement: Those systems with pertinent positive or pertinent negative responses have been documented in the HPI. ROS Other: All systems not noted in ROS Statement are negative. Past Medical History Past Medical History: Atrial Fibrillation, Heart Failure, Hypertension, Osteoarthritis (OA), Thyroid Disorder Additional Past Medical History / Comment(s): having dk colored stools, anemia,received 1rst dose of Moderna vaccine,Had upper respiratory infection May 2020 tx with antibiotics, had negative covid test, chronic pain low back, spinal stenosis, past Dimas's palsy. History of Any Multi-Drug Resistant Organisms: None Reported Past Surgical History: Hernia Repair Additional Past Surgical History / Comment(s): CARROLL,Abdominal hernia repair, R thigh fatty tumor removed, colonoscopies, epidural injections low back. Patient had two molars removed about 5 weeks ago. Past Anesthesia/Blood Transfusion Reactions: No Reported Reaction Past Psychological History: Anxiety Smoking Status: Former smoker Past Alcohol Use History: Occasional Past Drug Use History: None Reported - Past Family History Father Family Medical History: Hypertension Additional Family Medical History / Comment(s): heart valve replacements. General Exam Limitations: no limitations General appearance: alert, in distress (Moderate respiratory distress) Head exam: Present: atraumatic, normocephalic Eye exam: Present: normal appearance, PERRL ENT exam: Present: mucous membranes dry Neck exam: Present: normal inspection. Absent: tenderness, meningismus Respiratory exam: Present: respiratory distress, wheezes, rhonchi, decreased breath sounds Cardiovascular Exam: Present: regular rate, irregular rhythm GI/Abdominal exam: Present: soft. Absent: distended, tenderness, guarding, rebound Extremities exam: Present: pedal edema Neurological exam: Present: alert, oriented X3, CN II-XII intact. Absent: motor sensory deficit Psychiatric exam: Present: normal affect, normal mood Skin exam: Present: warm, dry, intact. Absent: cyanosis, diaphoretic Course Vital Signs 03/06/21 03/06/21 03/06/21 07:13 07:44 08:42 Temperature 98.7 F Pulse Rate 99 99 99 Respiratory 24 24 24 Rate Blood Pressure 98/77 106/69 O2 Sat by Pulse 80 L 92 L 96 Oximetry EKG Findings - EKG Comments: EKG Findings:: EKGs: Atrial fibrillation with PVC rate of 99, QRS duration 94, QTC [address] segment elevation. Medical Decision Making - Medical Decision Making 65-year-old male with increased coughing congestion. Cough is productive of thick yellow sputum. He is in moderate respiratory distress. Initial blood pressures in the 80s. This does respond to IV fluid. His hypoxia is improved with supplemental oxygen. Chest x-ray shows a bilateral infiltrate. His coronavirus testing is negative. He has normal white blood cell count 7.7. His hemoglobin is 7.2 which is in the range of his recent blood testing. He has a sodium 127, potassium 3.2 and magnesium 1.3. These are replaced. He has a history of CHF and he has a elevated BNP therefore fluid is ordered but at a reduced rate. He has a normal lactic acid at 1.2. He started on cefepime and azithromycin. Case is discussed with Dr. Irene who will admit. - Lab Data Result diagrams: 03/06/21 07:35 03/06/21 07:35 Lab Results 03/06/21 03/06/21 03/06/21 Range/Units 07:35 07:35 07:35 WBC 7.4 (3.8-10.6) k/uL RBC 2.15 L (4.30-5.90) m/uL Hgb 7.2 L (13.0-17.5) gm/dL Hct 21.2 L (39.0-53.0) % MCV 98.5 (80.0-100.0) fL MCH 33.3 (25.0-35.0) pg MCHC 33.8 (31.0-37.0) g/dL RDW 19.0 H (11.5-15.5) % Plt Count 108 L (150-450) k/uL MPV 8.4 Poikilocytosis Slight Anisocytosis Slight Macrocytosis Slight PT 13.1 H (9.0-12.0) sec INR 1.3 H (<1.2) APTT 28.5 (22.0-30.0) sec Sodium 127 L (137-145) mmol/L Potassium 3.2 L (3.5-5.1) mmol/L Chloride 91 L (98-107) mmol/L Carbon Dioxide 26 (22-30) mmol/L Anion Gap 10 mmol/L BUN 10 (9-20) mg/dL Creatinine 0.62 L (0.66-1.25) mg/dL Est GFR (CKD-EPI)AfAm >90 (>60 ml/min/1.73 sqM) Est GFR (CKD-EPI)NonAf >90 (>60 ml/min/1.73 sqM) Glucose 107 H (74-99) mg/dL Plasma Lactic Acid Quinn (0.7-2.0) mmol/L Calcium 8.2 L (8.4-10.2) mg/dL Magnesium 1.3 L (1.6-2.3) mg/dL Total Bilirubin 3.7 H (0.2-1.3) mg/dL AST 21 (17-59) U/L ALT 9 (4-49) U/L Alkaline Phosphatase 231 H (38-126) U/L Troponin I (0.000-0.034) ng/mL NT-Pro-B Natriuret Pep pg/mL Total Protein 5.8 L (6.3-8.2) g/dL Albumin 3.0 L (3.5-5.0) g/dL Coronavirus (PCR) (Not Detectd) 03/06/21 03/06/21 03/06/21 Range/Units 07:35 07:35 07:35 WBC (3.8-10.6) k/uL RBC (4.30-5.90) m/uL Hgb (13.0-17.5) gm/dL Hct (39.0-53.0) % MCV (80.0-100.0) fL MCH (25.0-35.0) pg MCHC (31.0-37.0) g/dL RDW (11.5-15.5) % Plt Count (150-450) k/uL MPV Poikilocytosis Anisocytosis Macrocytosis PT (9.0-12.0) sec INR (<1.2) APTT (22.0-30.0) sec Sodium (137-145) mmol/L Potassium (3.5-5.1) mmol/L Chloride (98-107) mmol/L Carbon Dioxide (22-30) mmol/L Anion Gap mmol/L BUN (9-20) mg/dL Creatinine (0.66-1.25) mg/dL Est GFR (CKD-EPI)AfAm (>60 ml/min/1.73 sqM) Est GFR (CKD-EPI)NonAf (>60 ml/min/1.73 sqM) Glucose (74-99) mg/dL Plasma Lactic Acid Quinn 1.2 (0.7-2.0) mmol/L Calcium (8.4-10.2) mg/dL Magnesium (1.6-2.3) mg/dL Total Bilirubin (0.2-1.3) mg/dL AST (17-59) U/L ALT (4-49) U/L Alkaline Phosphatase (38-126) U/L Troponin I <0.012 (0.000-0.034) ng/mL NT-Pro-B Natriuret Pep 9640 pg/mL Total Protein (6.3-8.2) g/dL Albumin (3.5-5.0) g/dL Coronavirus (PCR) (Not Detectd) 03/06/21 Range/Units 07:35 WBC (3.8-10.6) k/uL RBC (4.30-5.90) m/uL Hgb (13.0-17.5) gm/dL Hct (39.0-53.0) % MCV (80.0-100.0) fL MCH (25.0-35.0) pg MCHC (31.0-37.0) g/dL RDW (11.5-15.5) % Plt Count (150-450) k/uL MPV Poikilocytosis Anisocytosis Macrocytosis PT (9.0-12.0) sec INR (<1.2) APTT (22.0-30.0) sec Sodium (137-145) mmol/L Potassium (3.5-5.1) mmol/L Chloride (98-107) mmol/L Carbon Dioxide (22-30) mmol/L Anion Gap mmol/L BUN (9-20) mg/dL Creatinine (0.66-1.25) mg/dL Est GFR (CKD-EPI)AfAm (>60 ml/min/1.73 sqM) Est GFR (CKD-EPI)NonAf (>60 ml/min/1.73 sqM) Glucose (74-99) mg/dL Plasma Lactic Acid Quinn (0.7-2.0) mmol/L Calcium (8.4-10.2) mg/dL Magnesium (1.6-2.3) mg/dL Total Bilirubin (0.2-1.3) mg/dL AST (17-59) U/L ALT (4-49) U/L Alkaline Phosphatase (38-126) U/L Troponin I (0.000-0.034) ng/mL NT-Pro-B Natriuret Pep pg/mL Total Protein (6.3-8.2) g/dL Albumin (3.5-5.0) g/dL Coronavirus (PCR) Not Detected (Not Detectd) Critical Care Time Critical Care Time: Yes Total Critical Care Time: 35 Disposition Clinical Impression: Atrial fibrillation, Hypomagnesemia, Pancytopenia, Pneumonia, Hypoxia Disposition: ADMITTED IP TO THIS HOSP Condition: Stable Is patient prescribed a controlled substance at d/c from ED?: No Referrals: Cosmo Light MD [Primary Care Provider] - 1-2 days Decision to Admit Reason: Admit from EC Decision Date: 03/06/21 Decision Time: 09:23
--- NOTE | 2021-03-06 08:02 | XR ---
EXAMINATION TYPE: XR chest 2V DATE OF EXAM: 03/06/2021 COMPARISON: Chest x-ray February 26, 2021 HISTORY: Difficulty in breathing and weakness. TECHNIQUE: Frontal and lateral views of the chest are obtained. FINDINGS: There are worsening left perihilar opacities. There are developing multifocal right lung opacities. The cardiac silhouette size remains enlarged. Small to tiny bilateral pleural effusions on lateral x-ray. The osseous structures are intact. IMPRESSION: Worsening bilateral multifocal opacities consistent with bilateral multifocal pneumonias . Correlate to exclude covid-19 infection.
[2021-03-06 08:06] LABS: INR 1.3 (<1.2); Partial Thromboplastin Time 28.5 sec (22.0-30.0); Prothrombin Time 13.1 sec (9.0-12.0)
[2021-03-06] MEDS ORDERED: SODIUM CHLORIDE 0.9% 500 ML 500 ML IV ONE (08:15)
[2021-03-06 08:17] LABS: ALT 9 U/L (4-49); AST 21 U/L (17-59); African American GFR (CKD) >90 (>60 ml/min/1.73 sqM); Alkaline Phosphatase 231 U/L (38-126); Anion Gap 10 mmol/L; Blood Urea Nitrogen 10 mg/dL (9-20); Calcium 8.2 mg/dL (8.4-10.2); Carbon Dioxide 26 mmol/L (22-30); Chloride 91 mmol/L (98-107); Glucose 107 mg/dL (74-99); Magnesium 1.3 mg/dL (1.6-2.3); Non-African American GFR(CKD) >90 (>60 ml/min/1.73 sqM); Potassium 3.2 mmol/L (3.5-5.1); Sodium 127 mmol/L (137-145); Total Bilirubin 3.7 mg/dL (0.2-1.3); Total Protein 5.8 g/dL (6.3-8.2)
[2021-03-06] MEDS ORDERED: MAGNESIUM SULFATE-D5W PMX 1 GM in DEXTROSE/WATER 1 100ML.BAG IVPB ONE (08:18)
[2021-03-06] MEDS: SODIUM CHLORIDE 0.9% 1,000 ML IV SCH ×2 (08:28→22:26)
[2021-03-06] MEDS ORDERED: AZITHROMYCIN 500 MG in SODIUM CHLORIDE 0.9% 250 ML IVPB STA (08:30)
[2021-03-06] MEDS: POTASSIUM CHLORIDE 10 MEQ in WATER FOR INJECTION 1 100ML.BAG IVPB SCH ×4 (08:32→11:54)
[2021-03-06] MEDS ORDERED: PNEUMONIA PROTOCOL UTILIZED 1 EACH MISC PO PRN (09:19)
[2021-03-06] MEDS ORDERED: ALBUTEROL NEBULIZED 2.5 MG/3 ML INHALATION PRN (09:19)
[2021-03-06 09:34] LABS: Band Neutrophils % 1 %; Lymphocytes # (M) 1.11 k/uL (1.0-4.8); Monocytes # (M) 0.59 k/uL (0-1.0); Myelocytes # (M) 0.15 k/uL (0); Myelocytes % 2 %; Neutrophils % (M) 75 %; Nucleated Red Blood Cells 0 /100 WBC (0-0); Total Cells Counted 200
[2021-03-06] MEDS: ALBUTEROL NEBULIZED 2.5 MG/3 ML INHALATION SCH ×3 (11:41→19:21)
--- NOTE | 2021-03-06 15:28 | P.CNPUL ---
History of Present Illness Consult date: 03/06/21 Requesting physician: Cosmo Light Reason for consult: dyspnea, hypoxemia, pneumonia, abnormal CXR/CT Chief complaint: Shortness of breath, weakness, diarrhea, anemia. History of present illness: Pulmonary consult dated 03/06/2021. 65-year-old male, who was seen in the emergency department, room 6. The patient comes in with multiple complaints including shortness of breath, weakness, and d iarrhea. He was recently inpatient for a couple weeks, with a GI bleed. The patient also complains of productive cough for the past week. He has significant sputum production which is apparently yellow. He also reports both fevers and chills. Again his most recent admission was for GI bleed. He was discharged with referral for outpatient endoscopy. The patient does have a history of atrial fibrillation and heart failure. The patient recently quit using tobacco. He tested negative for coronavirus. He has received the coronavirus vaccine. White count 7.4, hemoglobin 7.2, hematocrit 21.2, and platelet count 108,000. PT 13.1 with an INR 1.3. Sodium 127, potassium 3.2, chlorides 91, CO2 26, anion gap 10, BUN 10, creatinine 0.62. Glucose was 107. Calcium 8.2. Total bilirubin 3.7. The patient's N-terminal proBNP was 9640. Troponin was negative. Pro-calcitonin level was 0.31. Chest x-ray showed bilateral infiltrates consistent with pneumonia. Review of Systems REVIEW OF SYSTEMS: CONSTITUTIONAL: Weakness, fatigue and chills. NEUROLOGIC: [ Negative.] HEENT: [ Negative.] CARDIAC: [Negative.] PULMONARY: Shortness of breath, cough, and sputum production. GI: [Negative.] : [Negative.] RHEUMATOLOGIC: [ Negative.] IMMUNOLOGIC: [ Negative.] ENDOCRINE: [Negative. ] DERMATOLOGIC: [Negative.] Past Medical History Past Medical History: Atrial Fibrillation, Heart Failure, Hypertension, Osteoarthritis (OA), Thyroid Disorder Additional Past Medical History / Comment(s): having dk colored stools, anemia,received 1rst dose of Moderna vaccine,Had upper respiratory infection May 2020 tx with antibiotics, had negative covid test, chronic pain low back, spinal stenosis, past Dimas's palsy. History of Any Multi-Drug Resistant Organisms: None Reported Past Surgical History: Hernia Repair Additional Past Surgical History / Comment(s): CARROLL,Abdominal hernia repair, R thigh fatty tumor removed, colonoscopies, epidural injections low back. Patient had two molars removed about 5 weeks ago. Past Anesthesia/Blood Transfusion Reactions: No Reported Reaction Past Psychological History: Anxiety Smoking Status: Former smoker Past Alcohol Use History: Occasional Past Drug Use History: None Reported - Past Family History Father Family Medical History: Hypertension Additional Family Medical History / Comment(s): heart valve replacements. Medications and Allergies Home Medications Medication Instructions Recorded Confirmed Type HYDROcodone/APAP 10-325MG [[place] 1 tab PO QID PRN 07/05/17 03/06/21 History 10-325] Furosemide [Lasix] 40 mg PO DAILY 08/12/20 03/06/21 History Levothyroxine Sodium [Synthroid] 100 mcg PO DAILY 10/14/20 03/06/21 History Omeprazole 40 mg PO DAILY 10/14/20 03/06/21 History Ferrous Sulfate [Feosol] 325 mg PO BID #60 tab 10/18/20 03/06/21 Rx Albuterol Inhaler [Ventolin Hfa 2 puff INHALATION RT-QID PRN 02/10/21 03/06/21 History Inhaler] Nadolol [Corgard] 40 mg PO DAILY 02/10/21 03/06/21 History Folic Acid 1 mg PO DAILY tab 02/18/21 03/06/21 Rx Magnesium Oxide [Mag-Ox] 400 mg PO BID #0 tab 02/18/21 03/06/21 Rx Nicotine 14Mg/24Hr Patch [Habitrol] 1 patch TRANSDERM DAILY patch 02/18/21 Rx QUEtiapine [SEROquel] 50 mg PO HS #0 02/18/21 03/06/21 Rx Spironolactone 100 mg PO DAILY 03/06/21 03/06/21 History Thiamine [Vitamin B-1] 50 mg PO DAILY 03/06/21 03/06/21 History Allergies Allergy/AdvReac Type Severity Reaction Status Date / Time cholesterol meds AdvReac See Uncoded 03/06/21 07:24 comments Physical Exam Osteopathic Statement: *. No significant issues noted on an osteopathic struct ural exam other than those noted in the History and Physical/Consult. Vitals: Vital Signs Temp Pulse Resp BP Pulse Ox 03/06/21 15:12 94 18 03/06/21 15:01 92 18 03/06/21 11:50 92 18 03/06/21 11:41 90 18 03/06/21 11:00 89 24 93/59 95 03/06/21 10:45 98.8 F 93 22 83/58 94 L 03/06/21 09:57 80 24 101/70 96 03/06/21 08:42 99 24 106/69 96 03/06/21 07:44 99 24 92 L 03/06/21 07:13 98.7 F 99 24 98/77 80 L Intake and Output 03/06/21 03/06/21 03/06/21 06:59 14:59 22:59 Other: Weight 108.862 kg No acute distress, oriented 3. The patient looks very chronically ill. 5 L saturation is 95%. HEENT examination is grossly unremarkable. Neck supple. Full range of motion. No adenopathy thyromegaly or neck vein distention. Cardiovascular examination reveals regular rhythm rate. S1-S2 normal. No S3 or S4. No discernible murmur noted. Heart sounds are distant. Heart rate 94 bpm. Lungs reveal bilateral scattered rhonchi. Occasional crackles appreciated. No wheezes. Breath sounds are equal bilaterally, but diminished throughout. Abdomen soft bowel sounds are heard. No masses or tenderness. Extremities are intact. No cyanosis or clubbing. Lower extremity edema is noted. Skin reveals multiple areas of ecchymoses. Neurologic examination is brief but nonfocal. Results - Laboratory Findings CBC and BMP: 03/06/21 07:35 03/06/21 07:35 PT/INR, D-dimer PT 13.1 sec (9.0-12.0) H 03/06/21 07:35 INR 1.3 (<1.2) H 03/06/21 07:35 Abnormal lab findings: Abnormal Labs 03/06/21 03/06/21 03/06/21 07:35 07:35 07:35 RBC 2.15 L Hgb 7.2 L Hct 21.2 L RDW 19.0 H Plt Count 108 L Myelocytes # (Manual) 0.15 H PT 13.1 H INR 1.3 H Sodium 127 L Potassium 3.2 L Chloride 91 L Creatinine 0.62 L Glucose 107 H Calcium 8.2 L Magnesium 1.3 L Total Bilirubin 3.7 H Alkaline Phosphatase 231 H Total Protein 5.8 L Albumin 3.0 L Procalcitonin 03/06/21 07:35 RBC Hgb Hct RDW Plt Count Myelocytes # (Manual) PT INR Sodium Potassium Chloride Creatinine Glucose Calcium Magnesium Total Bilirubin Alkaline Phosphatase Total Protein Albumin Procalcitonin 0.31 H - Diagnostic Findings Chest x-ray: image reviewed Assessment and Plan Assessment: Acute hypoxemic respiratory failure secondary to pneumonia. Probable COPD, based on his extensive tobacco history. History of recent admission for gastrointestinal bleed. Chronic anemia. History of atrial fibrillation. History of hypothyroidism. History of CHF. History of hypertension. History of osteoarthritis. History of Dimas's palsy. Plan: Plan dated 03/06/2021. The patient currently is on cefepime. The patient is also getting breathing treatments. We will continue to follow. Prognosis is guarded. Hemoglobin is 7.2. That will have to be watched carefully. Additional recommendations and suggestions are forthcoming. Pro-calcitonin level is 0.31. We will continue to follow and make recommendations where appropriate. Time with Patient: Greater than 30
[2021-03-06] MEDS: CEFEPIME 2 GM in SODIUM CHLORIDE 0.9% 100 ML IVPB SCH ×2 (17:08→22:25)
[2021-03-06] MEDS: MAGNESIUM OXIDE 400 MG TAB PO SCH (22:26)
[2021-03-06] MEDS: QUEtiapine 50 MG TAB PO SCH (22:26)
[2021-03-06] MEDS: FERROUS SULFATE 325 MG TAB PO SCH (22:26)
[2021-03-06] MEDS: HYDROcodone/APAP 10-325MG 1 EACH TAB PO PRN (23:17)
[2021-03-07] MEDS: LEVOTHYROXINE 100 MCG TAB PO SCH (04:55)
[2021-03-07 07:30] LABS: Anisocytosis Slight; MCH 33.6 pg (25.0-35.0); MCHC 34.9 g/dL (31.0-37.0); MCV 96.3 fL (80.0-100.0); Macrocytosis Slight; Mean Platelet Volume 8.4; Poikilocytosis Slight; RBC 1.77 m/uL (4.30-5.90)
[2021-03-07] MEDS ORDERED: PANTOPRAZOLE 40 MG TABLET PO SCH (07:30)
[2021-03-07 07:39] LABS: HGB 5.9 gm/dL (13.0-17.5)
[2021-03-07] MEDS: ALBUTEROL NEBULIZED 2.5 MG/3 ML INHALATION SCH ×4 (07:55→19:56)
[2021-03-07] MEDS: CEFEPIME 2 GM in SODIUM CHLORIDE 0.9% 100 ML IVPB SCH ×3 (08:26→21:32)
[2021-03-07] MEDS: NICOTINE 14MG/24HR PATCH TRANSDERM SCH ×2 (08:26→08:32)
[2021-03-07] MEDS: SPIRONOLACTONE 25 MG TAB PO SCH (08:27)
[2021-03-07] MEDS: MAGNESIUM OXIDE 400 MG TAB PO SCH ×2 (08:28→21:34)
[2021-03-07] MEDS: FUROSEMIDE 40 MG TAB PO SCH (08:28)
[2021-03-07] MEDS: FERROUS SULFATE 325 MG TAB PO SCH ×2 (08:28→21:34)
[2021-03-07] MEDS: FOLIC ACID 1 MG TAB PO SCH (08:28)
[2021-03-07] MEDS: SODIUM CHLORIDE 0.9% 1,000 ML IV SCH ×2 (08:29→23:09)
[2021-03-07] MEDS: THIAMINE 100 MG TAB PO SCH (08:38)
[2021-03-07 08:54] LABS: Platelet Count 80 k/uL (150-450)
[2021-03-07 08:59] LABS: Band Neutrophils % 1 %; Lymphocytes # (M) 0.51 k/uL (1.0-4.8); Myelocytes # (M) 0.03 k/uL (0); Myelocytes % 1 %; Neutrophils % (M) 72 %; Nucleated Red Blood Cells 0 /100 WBC (0-0); Total Cells Counted 200
--- NOTE | 2021-03-07 09:08 | P.HPIM ---
History of Present Illness H&P Date: 03/06/21 Chief Complaint: Difficulty breathing/generalized weakness 65-year-old male patient with history of atrial fibrillation, CAD, CHF, hypertension, hypothyroidism who was recently discharged from the hospital after being admitted and treated for GI bleed and was discharged to follow-up for EGD as an outpatient, presents to ED with complaint of shortness of breath and excessive weakness; patient reports that he did develop some difficulty breathing and cough at the time of discharge from last admission at which time he was placed on oral antibiotics and was sent home; patient states he continued to worsen over next few days; patient is vaccinated for COVID-19 Workup in ED reveals W BC SM 0.4, hemoglobin 7.2, hematocrit 21.2 and platelet count of 108, sodium 127, potassium 2.2, magnesium 1.3, BUN/creatinine of 10/0.62; troponin of 0.012 and BNP of 9640 Review of Systems REVIEW OF SYSTEMS: CONSTITUTIONAL: No fever, no malaise, no fatigue. HEENT: No recent visual problems or hearing problems. Denied any sore throat. CARDIOVASCULAR: No chest pain, orthopnea, PND, no palpitations, no syncope. PULMONARY: shortness of breath, no cough, no hemoptysis. GASTROINTESTINAL: No diarrhea, no nausea, no vomiting, no abdominal pain. NEUROLOGICAL: No headaches, no weakness, no numbness. HEMATOLOGICAL: Denies any bleeding or petechiae. GENITOURINARY: Denies any burning micturition, frequency, or urgency. MUSCULOSKELETAL/RHEUMATOLOGICAL: Denies any joint pain, swelling, or any muscle pain. ENDOCRINE: Denies any polyuria or polydipsia. The rest of the 14-point review of systems is negative. Past Medical History Past Medical History: Atrial Fibrillation, Heart Failure, Hypertension, Osteoarthritis (OA), Thyroid Disorder Additional Past Medical History / Comment(s): having dk colored stools, anemia,received 1rst dose of Moderna vaccine,Had upper respiratory infection May 2020 tx with antibiotics, had negative covid test, chronic pain low back, spinal stenosis, past Dimas's palsy. History of Any Multi-Drug Resistant Organisms: None Reported Past Surgical History: Hernia Repair Additional Past Surgical History / Comment(s): CARROLL,Abdominal hernia repair, R thigh fatty tumor removed, colonoscopies, epidural injections low back. Patient had two molars removed about 5 weeks ago. Past Anesthesia/Blood Transfusion Reactions: No Reported Reaction Past Psychological History: Anxiety Smoking Status: Former smoker Past Alcohol Use History: Occasional Past Drug Use History: None Reported - Past Family History Father Family Medical History: Hypertension Additional Family Medical History / Comment(s): heart valve replacements. Medications and Allergies Home Medications Medication Instructions Recorded Confirmed Type HYDROcodone/APAP 10-325MG [[place] 1 tab PO QID PRN 07/05/17 03/06/21 History 10-325] Furosemide [Lasix] 40 mg PO DAILY 08/12/20 03/06/21 History Levothyroxine Sodium [Synthroid] 100 mcg PO DAILY 10/14/20 03/06/21 History Omeprazole 40 mg PO DAILY 10/14/20 03/06/21 History Ferrous Sulfate [Feosol] 325 mg PO BID #60 tab 10/18/20 03/06/21 Rx Albuterol Inhaler [Ventolin Hfa 2 puff INHALATION RT-QID PRN 02/10/21 03/06/21 History Inhaler] Nadolol [Corgard] 40 mg PO DAILY 02/10/21 03/06/21 History Folic Acid 1 mg PO DAILY tab 02/18/21 03/06/21 Rx Magnesium Oxide [Mag-Ox] 400 mg PO BID #0 tab 02/18/21 03/06/21 Rx Nicotine 14Mg/24Hr Patch [Habitrol] 1 patch TRANSDERM DAILY patch 02/18/21 03/06/21 Rx QUEtiapine [SEROquel] 50 mg PO HS #0 02/18/21 03/06/21 Rx Spironolactone 100 mg PO DAILY 03/06/21 03/06/21 History Thiamine [Vitamin B-1] 50 mg PO DAILY 03/06/21 03/06/21 History Allergies Allergy/AdvReac Type Severity Reaction Status Date / Time cholesterol meds AdvReac See Uncoded 03/06/21 07:24 comments Physical Exam Vitals: Vital Signs Temp Pulse Resp BP Pulse Ox 03/06/21 08:42 99 24 106/69 96 03/06/21 07:44 99 24 92 L 03/06/21 07:13 98.7 F 99 24 98/77 80 L Intake and Output 03/05/21 03/06/21 03/06/21 22:59 06:59 14:59 Other: Weight 108.862 kg PHYSICAL EXAMINATION: GENERAL: The patient is alert and oriented x3, not in any acute distress. Well developed, well nourished. HEENT: Pupils are round and equally reacting to light. EOMI. No scleral icterus. No conjunctival pallor. Normocephalic, atraumatic. No pharyngeal erythema. No thyromegaly. CARDIOVASCULAR: S1 and S2 present. No murmurs, rubs, or gallops. PULMONARY: Decreased breath sounds bilaterally with scattered rhonchi. ABDOMEN: Soft, nontender, nondistended, normoactive bowel sounds. No palpable organomegaly. MUSCULOSKELETAL: No joint swelling or deformity. EXTREMITIES: No cyanosis, clubbing, or pedal edema. NEUROLOGICAL: Gross neurological examination did not reveal any focal deficits. SKIN: No rashes. Results CBC & Chem 7: 03/07/21 05:37 03/06/21 07:35 Labs: Abnormal Lab Results - Last 24 Hours (Table) 03/06/21 03/06/21 03/06/21 Range/Units 07:35 07:35 07:35 RBC 2.15 L (4.30-5.90) m/uL Hgb 7.2 L (13.0-17.5) gm/dL Hct 21.2 L (39.0-53.0) % RDW 19.0 H (11.5-15.5) % Plt Count 108 L (150-450) k/uL PT 13.1 H (9.0-12.0) sec INR 1.3 H (<1.2) Sodium 127 L (137-145) mmol/L Potassium 3.2 L (3.5-5.1) mmol/L Chloride 91 L (98-107) mmol/L Creatinine 0.62 L (0.66-1.25) mg/dL Glucose 107 H (74-99) mg/dL Calcium 8.2 L (8.4-10.2) mg/dL Magnesium 1.3 L (1.6-2.3) mg/dL Total Bilirubin 3.7 H (0.2-1.3) mg/dL Alkaline Phosphatase 231 H (38-126) U/L Total Protein 5.8 L (6.3-8.2) g/dL Albumin 3.0 L (3.5-5.0) g/dL Assessment and Plan Assessment: 1. Acute hypoxemic respiratory failure; possibly multifactorial secondary to pneumonia versus mild CHF - Patient is placed on O2 per nasal cannula with plans to keep O2 saturation greater than 88-90%; we will plan to wean as able - Patient does not exhibit signs of fluid overload; we will monitor closely and hold off on diuretic therapy at this time 2. Healthcare associated pneumonia; patient has been placed on IV cefepime; bronchodilator nebulizer treatments; monitor CBC, CRP and pro-calcitonin; we will consult pulmonary service of further recommendations 3. Significant anemia with history of recent GI bleed; no complaining or evidence of GI bleed at this time; we will monitor H&H closely with plans to transfuse if hemoglobin drops below 7; we will start patient on Protonix 4. Electrolyte imbalance; hyponatremia, hypokalemia and hypomagnesemia; supplem ented in ED; we will monitor electrolytes closely and plan to supplement as needed 5. CAD/CHF; no complaints of chest pain; shortness of breath related to pneumonia; no signs of fluid overload; we will continue with home dose of Lasix 40 mg daily and Aldactone 100 mg daily with further recommendations according to clinical course 6. Hypothyroidism; levothyroxin 100 MCG daily 7. Hypertension; Corgard 40 mg daily 8. Atrial fibrillation; remains rate controlled on Corgard; patient currently not on anticoagulation therapy due to GI bleed DVT prophylaxis; SCDs only due to history of recent GI bleed CODE STATUS; full code
[2021-03-07 13:53] LABS: African American GFR (CKD) >90 (>60 ml/min/1.73 sqM); Anion Gap 7 mmol/L; Blood Urea Nitrogen 11 mg/dL (9-20); Calcium 8.2 mg/dL (8.4-10.2); Carbon Dioxide 27 mmol/L (22-30); Chloride 95 mmol/L (98-107); Glucose 106 mg/dL (74-99); Non-African American GFR(CKD) >90 (>60 ml/min/1.73 sqM); Potassium 3.4 mmol/L (3.5-5.1); Sodium 129 mmol/L (137-145)
--- NOTE | 2021-03-07 15:52 | P.PN ---
Subjective Progress Note Date: 03/07/21 Principal diagnosis: Shortness of breath 65-year-old male, who was seen in the emergency department, room 6. The patient comes in with multiple complaints including shortness of breath, weakness, and diarrhea. He was recently inpatient for a couple weeks, with a GI bleed. The patient also complains of productive cough for the past week. He has significant sputum production which is apparently yellow. He also reports both fevers and chills. Again his most recent admission was for GI bleed. He was discharged with referral for outpatient endoscopy. The patient does have a history of atrial fibrillation and heart failure. The patient recently quit using tobacco. He tested negative for coronavirus. He has received the coronavirus vaccine. White count 7.4, hemoglobin 7.2, hematocrit 21.2, and platelet count 108,000. PT 13.1 with an INR 1.3. Sodium 127, potassium 3.2, chlorides 91, CO2 26, anion gap 10, BUN 10, creatinine 0.62. Glucose was 107. Calcium 8.2. Total bilirubin 3.7. The patient's N-terminal proBNP was 9640. Troponin was negative. Pro-calcitonin level was 0.31. Chest x-ray showed bilateral infiltrates consistent with pneumonia On 03/07/2001 patient seen in follow-up on medical surgical floor. He is resting comfortably in bed, he states overall his breathing has improved, he is feeling better, he remains on cefepime, still has diffuse wheezes, occasional cough,. Sputum culture showed presumptive staph aureus, final culture is patrick madden, his blood culture showed Staphylococcus epidermidis, likely related to contamination. Currently on 5 L of oxygen pulse ox 95%, no fever or chills, no complaints of chest discomfort, no hemoptysis, he is scheduled to receive a unit of packed red blood cells for hemoglobin of 5.9, he denies any dark tarry or bloody stools, no hematemesis. No abdominal pain, patient remains on 0.9 normal saline at a rate 75 ML per hour, is receiving Protonix 40 mg twice daily, he is in atrial fibrillation however his anticoagulation is on hold related to recent history of GI bleeding. Objective - Vital Signs Vital signs: Vital Signs Temp 97.9 F 03/07/21 14:00 Pulse 73 03/07/21 14:00 Resp 18 03/07/21 14:00 BP 99/60 03/07/21 14:00 Pulse Ox 95 03/07/21 14:00 Intake & Output 03/06/21 03/07/21 03/07/21 18:59 06:59 18:59 Intake Total 480 Output Total 400 Balance 80 Weight 108.862 kg Intake: Oral 480 Output: Urine 400 Other: Voiding Method External Catheter External Catheter # Voids 2 - Exam GENERAL EXAM: Alert, very pleasant, 65-year-old white male, on 5 L of oxygen pulse ox of 95%, comfortable in no apparent distress. HEAD: Normocephalic/atraumatic. EYES: Normal reaction of pupils, equal size. Conjunctiva pink, sclera white. NOSE: Clear with pink turbinates. THROAT: No erythema or exudates. NECK: No masses, no JVD, no thyroid enlargement, no adenopathy. CHEST: No chest wall deformity. Symmetrical expansion. LUNGS: Equal air entry with mild wheezing, mild crackles at the bases CVS: Regular rate and rhythm, normal S1 and S2, no gallops, no murmurs, no rubs ABDOMEN: Soft, nontender. No hepatosplenomegaly, normal bowel sounds, no guarding or rigidity. EXTREMITIES: No clubbing, trace pretibial edema, chronic venous stasis changes present on bilateral lower extremities no cyanosis, 2+ pulses and upper and lower extremities. MUSCULOSKELETAL: Muscle strength and tone normal. SPINE: No scoliosis or deformity SKIN: No rashes CENTRAL NERVOUS SYSTEM: Alert and oriented -3. No focal deficits, tone is normal in all 4 extremities. PSYCHIATRIC: Alert and oriented -3. Appropriate affect. Intact judgment and insight. - Labs CBC & Chem 7: 03/07/21 05:37 03/07/21 12:55 Labs: Abnormal Lab Results - Last 24 Hours (Table) 03/07/21 03/07/21 03/07/21 Range/Units 05:37 05:37 10:42 WBC 3.0 L (3.8-10.6) k/uL RBC 1.77 L (4.30-5.90) m/uL Hgb 5.9 L* (13.0-17.5) gm/dL Hct 17.0 L* (39.0-53.0) % RDW 19.0 H (11.5-15.5) % Plt Count 80 L (150-450) k/uL Lymphocytes # (Manual) 0.51 L (1.0-4.8) k/uL Myelocytes # (Manual) 0.03 H (0) k/uL Sodium (137-145) mmol/L Potassium (3.5-5.1) mmol/L Chloride (98-107) mmol/L Creatinine (0.66-1.25) mg/dL Glucose (74-99) mg/dL Calcium (8.4-10.2) mg/dL Procalcitonin 0.28 H (0.02-0.09) ng/mL Crossmatch See Detail 03/07/21 Range/Units 12:55 WBC (3.8-10.6) k/uL RBC (4.30-5.90) m/uL Hgb (13.0-17.5) gm/dL Hct (39.0-53.0) % RDW (11.5-15.5) % Plt Count (150-450) k/uL Lymphocytes # (Manual) (1.0-4.8) k/uL Myelocytes # (Manual) (0) k/uL Sodium 129 L (137-145) mmol/L Potassium 3.4 L (3.5-5.1) mmol/L Chloride 95 L (98-107) mmol/L Creatinine 0.60 L (0.66-1.25) mg/dL Glucose 106 H (74-99) mg/dL Calcium 8.2 L (8.4-10.2) mg/dL Procalcitonin (0.02-0.09) ng/mL Crossmatch Microbiology - Last 24 Hours (Table) 03/06/21 10:45 Gram Stain - Preliminary Sputum Sputum Culture - Preliminary Presumptive Staph aureus 03/06/21 07:35 Blood Culture Gram Stain - Preliminary Blood Blood Culture - Preliminary Staphylococcus epidermidis 03/06/21 07:45 Blood Culture - Final Blood 03/06/21 07:35 Blood Culture - Final Blood Assessment and Plan Plan: Assessment: #1. Acute hypoxic respiratory failure secondary to acute pneumonia, possibly healthcare acquired, COVID-19 PCR was negative. #2. Suspect underlying history of COPD related to extensive history of tobacco history #3. 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 Chronic atrial fibrillation, currently not on any anticoagulation related to recent history of GI bleeding #5. Acute on chronic anemia, rule out possibility of bleeding. Patient will receive 1 unit of packed red blood cells today for hemoglobin of 5.9 #6. History of alcoholism, currently in remission #7. Former smoker #8. Hypertension #9. Moderate mitral regurgitation #10. Moderate pulmonary hypertension #11. Osteoporosis #12. Hyponatremia, possibly hypervolemia Plan: Continue cefepime, will await final sputum cultures Overall patient is feeling better, No clear evidence of bleeding, despite the drop in hemoglobin Patient is receiving a unit of blood Continue breathing treatments We'll continue to follow his clinical course Follow-up labs including CBC and BMP Follow-up chest x-ray tomorrow I performed a history & physical examination of the patient and discussed their management with my nurse practitioner, Hoa Diaz. I reviewed the nurse practitioner's note and agree with the documented findings and plan of care. Lung sounds are positive for diffuse wheezes throughout the lung buck. The findings and the impression was discussed with the patient. I attest to the documentation by the nurse practitioner. Time with Patient: Less than 30
[2021-03-07] MEDS: HYDROcodone/APAP 10-325MG 1 EACH TAB PO PRN ×2 (17:55→21:34)
[2021-03-07] MEDS ORDERED: Potassium Replacement Protocol 1 EACH MISC MISCELLANE PRN (18:29)
[2021-03-07] MEDS: POTASSIUM CHLORIDE ER 20 MEQ TAB.ER PO SCH ×2 (20:32→21:33)
[2021-03-07 21:21] LABS: Anisocytosis Slight; HCT 22.1 % (39.0-53.0); MCH 33.8 pg (25.0-35.0); MCHC 34.8 g/dL (31.0-37.0); MCV 97.2 fL (80.0-100.0); Macrocytosis Slight; Mean Platelet Volume 7.9; Platelet Count 113 k/uL (150-450); Poikilocytosis Slight; RBC 2.28 m/uL (4.30-5.90); RDW 19.6 % (11.5-15.5)
[2021-03-07] MEDS: PANTOPRAZOLE 40 MG/10 ML VIAL IVP SCH (21:32)
[2021-03-07] MEDS: QUEtiapine 50 MG TAB PO SCH (21:34)
[2021-03-07 22:05] LABS: HGB 7.7 gm/dL (13.0-17.5)
[2021-03-08] MEDS: LEVOTHYROXINE 100 MCG TAB PO SCH (05:57)
[2021-03-08] MEDS: SODIUM CHLORIDE 0.9% 1,000 ML IV SCH (05:57)
[2021-03-08] MEDS: ALBUTEROL NEBULIZED 2.5 MG/3 ML INHALATION SCH ×2 (08:33→11:41)
[2021-03-08] MEDS: SPIRONOLACTONE 25 MG TAB PO SCH (09:25)
[2021-03-08] MEDS: PANTOPRAZOLE 40 MG/10 ML VIAL IVP SCH ×2 (09:25→22:36)
[2021-03-08] MEDS: HYDROcodone/APAP 10-325MG 1 EACH TAB PO PRN ×3 (09:26→22:40)
[2021-03-08] MEDS: THIAMINE 100 MG TAB PO SCH (09:26)
[2021-03-08] MEDS: MAGNESIUM OXIDE 400 MG TAB PO SCH ×2 (09:26→22:37)
[2021-03-08] MEDS: FOLIC ACID 1 MG TAB PO SCH (09:26)
[2021-03-08] MEDS: FUROSEMIDE 40 MG TAB PO SCH (09:26)
[2021-03-08] MEDS: CEFEPIME 2 GM in SODIUM CHLORIDE 0.9% 100 ML IVPB SCH ×3 (09:26→22:34)
[2021-03-08] MEDS: FERROUS SULFATE 325 MG TAB PO SCH ×2 (09:26→22:37)
[2021-03-08] MEDS: NICOTINE 14MG/24HR PATCH TRANSDERM SCH (09:27)
[2021-03-08 11:57] LABS: African American GFR (CKD) 109.5 (60.0-200.0); Anion Gap 11.7 mmol/L (10.00-18.00); BUN/Creat Ratio 15.16 Ratio (12.00-20.00); Blood Urea Nitrogen 11.7 mg/dL (9.0-27.0); Calcium 8.5 mg/dL (8.7-10.3); Non-African American GFR(CKD) 94.5 (60.0-200.0)
--- NOTE | 2021-03-08 12:18 | XR ---
EXAMINATION TYPE: XR chest 1V portable DATE OF EXAM: 03/08/2021 COMPARISON: 03/06/2021 HISTORY: 65 years Male. STUDY INDICATION GIVEN: dyspnea . TECHNIQUE: AP chest radiograph IMPRESSION: Bilateral left greater than right patchy opacities and mild interstitial edema slightly improved. No pneumothorax or large effusion. Stable mild cardiomegaly.
[2021-03-08] MEDS ORDERED: IPRATROPIUM-ALBUTEROL 3 ML NEB INHALATION PRN (14:43)
[2021-03-08] MEDS: IPRATROPIUM-ALBUTEROL 3 ML NEB INHALATION SCH ×2 (16:16→20:06)
--- NOTE | 2021-03-08 17:48 | P.PN ---
Subjective Progress Note Date: 03/08/21 Principal diagnosis: Shortness of breath, pneumonia. Pulmonary consult dated 03/06/2021. 65-year-old male, who was seen in the emergency department, room 6. The patient comes in with multiple complaints including shortness of breath, weakness, and diarrhea. He was recently inpatient for a couple weeks, with a GI bleed. The patient also complains of productive cough for the past week. He has significant sputum production which is apparently yellow. He also reports both fevers and chills. Again his most recent admission was for GI bleed. He was discharged with referral for outpatient endoscopy. The patient does have a history of atrial fibrillation and heart failure. The patient recently quit using tobacco. He tested negative for coronavirus. He has received the coronavirus vaccine. White count 7.4, hemoglobin 7.2, hematocrit 21.2, and platelet count 108,000. PT 13.1 with an INR 1.3. Sodium 127, potassium 3.2, chlorides 91, CO2 26, anion gap 10, BUN 10, creatinine 0.62. Glucose was 107. Calcium 8.2. Total bilirubin 3.7. The patient's N-terminal proBNP was 9640. Troponin was negative. Pro-calcitonin level was 0.31. Chest x-ray showed bilateral infiltrates consistent with pneumonia. Progress note dated 03/08/2021. 65-year-old male, initially seen in the emergency department. The patient was admitted with a diagnosis of shortness of breath, weakness and diarrhea. He was recently inpatient for a couple weeks, with a GI bleed. For the past week, the patient's had a productive cough of yellow phlegm. He also reports both fever and chills. Laboratory data today includes a sodium 134, potassium 4, chlorides 97, CO2 25, anion gap 12, BUN 12, and creatinine 0.8. Pro-calcitonin level was 0.28. Chest x-ray showed bilateral left greater than right patchy opacities, and mild interstitial edema. Today's chest x-ray was improved compared to the x-ray on admission. The patient remains on cefepime. Objective - Vital Signs Vital signs: Vital Signs Temp 97.2 F L 03/08/21 14:00 Pulse 88 03/08/21 16:26 Resp 16 03/08/21 14:00 BP 94/60 03/08/21 14:00 Pulse Ox 90 L 03/08/21 06:20 Intake & Output 03/07/21 03/08/21 03/08/21 18:59 06:59 18:59 Intake Total 0 2370 Output Total 400 Balance 0 1969 Weight 109.7 kg Intake: Intake, IV Titration 1100 Amount Cefepime 2 gm In Sodium 100 Chloride 0.9% 100 ml @ 25 mls/hr IVPB Q8HR JERRY Rx# :[id number] Sodium Chloride 0.9% 1, 1000 000 ml @ 75 mls/hr IV . [id number] JERRY Rx#:[id number] Oral 960 Blood Product 0 310 Rc As-1 Unit 0 310 [id number] Output: Urine 400 Other: Voiding Method External Catheter External Catheter Toilet Diaper # Voids 2 - Exam No acute distress, oriented 3. The patient looks very chronically ill. Room air saturation is 92%. No obvious respiratory distress or difficulty. HEENT examination is grossly unremarkable. Neck supple. Full range of motion. No adenopathy thyromegaly or neck vein distention. Cardiovascular examination reveals regular rhythm rate. S1-S2 normal. No S3 or S4. No discernible murmur noted. Heart sounds are distant. Heart rate 88 bpm. Lungs reveal bilateral scattered rhonchi. Occasional crackles appreciated. No wheezes. Breath sounds are equal bilaterally, but diminished throughout. Abdomen soft bowel sounds are heard. No masses or tenderness. Extremities are intact. No cyanosis or clubbing. Lower extremity edema is noted. Skin reveals multiple areas of ecchymoses. Neurologic examination is brief but nonfocal. - Labs CBC & Chem 7: 03/07/21 20:47 03/08/21 06:32 Labs: Abnormal Lab Results - Last 24 Hours (Table) 03/07/21 03/07/21 03/08/21 Range/Units 10:42 20:47 06:32 RBC 2.28 L (4.30-5.90) m/uL Hgb 7.7 L D (13.0-17.5) gm/dL Hct 22.1 L (39.0-53.0) % RDW 19.6 H (11.5-15.5) % Plt Count 113 L (150-450) k/uL Sodium 134 L (135-145) mmol/L Calcium 8.5 L (8.7-10.3) mg/dL Crossmatch See Detail Microbiology - Last 24 Hours (Table) 03/06/21 07:35 Blood Culture Gram Stain - Final Blood Blood Culture - Preliminary Staphylococcus epidermidis Coagulase Negative Staph 03/06/21 07:45 Blood Culture Gram Stain - Final Blood Blood Culture - Final Coagulase Negative Staph Coagulase Negative Staph#2 03/06/21 10:45 Gram Stain - Preliminary Sputum Sputum Culture - Preliminary Staphylococcus aureus Assessment and Plan Assessment: Acute hypoxemic respiratory failure secondary to methicillin sensitive staph aureus (MSSA) pneumonia. Probable COPD, based on his extensive tobacco history. History of recent admission for gastrointestinal bleed. Chronic anemia. History of atrial fibrillation. History of hypothyroidism. History of CHF. History of hypertension. History of osteoarthritis. History of Dimas's palsy. Plan: Plan dated 03/06/2021. The patient currently is on cefepime. The patient is also getting breathing treatments. We will continue to follow. Prognosis is guarded. Hemoglobin is 7.2. That will have to be watched carefully. Additional recommendations and suggestions are forthcoming. Pro-calcitonin level is 0.31. We will continue to follow and make recommendations where appropriate. Plan dated 03/08/2021. The patient was discovered to have methicillin sensitive staph aureus in the sputum. The patient remains on cefepime. Clinically, he feels a bit better. He's been weaned off of oxygen therapy. Follow make recommendations were appropriate. Labs, x-rays, and medications are all reviewed. The patient appears to be chronically ill. The patient also is on Symbicort, and albuterol sulfate mixed with ipratropium bromide. We will continue to follow make recommendations where appropriate. Prognosis is certainly guarded. Time with Patient: Less than 30
--- NOTE | 2021-03-08 19:12 | P.PN ---
Subjective Progress Note Date: 03/07/21 Principal diagnosis: Acute hypoxemic respiratory failure; possibly multifactorial secondary to pneumonia versus mild CHF Healthcare associated pneumonia Severe anemia 65-year-old male patient with history of atrial fibrillation, CAD, CHF, hypertension, hypothyroidism who was recently discharged from the hospital after being admitted and treated for GI bleed and was discharged to follow-up for EGD as an outpatient, presents to ED with complaint of shortness of breath and excessive weakness; patient reports that he did develop some difficulty breat reza and cough at the time of discharge from last admission at which time he was placed on oral antibiotics and was sent home; patient states he continued to worsen over next few days; patient is vaccinated for COVID-19 Workup in ED reveals W BC SM 0.4, hemoglobin 7.2, hematocrit 21.2 and platelet c ount of 108, sodium 127, potassium 2.2, magnesium 1.3, BUN/creatinine of 10/0.62; troponin of 0.012 and BNP of 9640 03/07/2021 Patient is seen and evaluated in room at bedside; blood work and need for transfusion discussed with patient and is agreeable Vital signs are reviewed, temperature 98.2, pulse 92, respiration 18 and blood pressure 106/72 Lab data shows WBC 3.2, hemoglobin 5.9, hematocrit 17.0; 4 was hoping sodium 129, potassium 3.4, BUN/creatinine of 11/0.60; no obvious source of bleeding We will proceed with type and crossmatch and transfuse with 1 unit of packed RBCs; monitor H&H every 12 hours; start patient on Protonix 40 mg IV every 12 hours; stool occult blood with plans to consult GI if stool occult blood is positive Patient remains on IV antibiotics; has been evaluated by pulmonary service and recommending to continue with IV cefepime and azithromycin Objective - Vital Signs Vital signs: Vital Signs Temp 97.9 F 03/07/21 00:03 Pulse 90 03/07/21 08:08 Resp 15 03/07/21 00:03 BP 105/66 03/07/21 00:03 Pulse Ox 99 03/07/21 00:03 Intake & Output 03/06/21 03/07/21 03/07/21 18:59 06:59 18:59 Intake Total 480 Output Total 400 Balance 80 Weight 108.862 kg Intake: Oral 480 Output: Urine 400 Other: Voiding Method External Catheter # Voids 2 - Exam GENERAL: The patient is alert and oriented x3, not in any acute distress. Well developed, well nourished. HEENT: Pupils are round and equally reacting to light. EOMI. No scleral icterus. No conjunctival pallor. Normocephalic, atraumatic. No pharyngeal erythema. No thyromegaly. CARDIOVASCULAR: S1 and S2 present. No murmurs, rubs, or gallops. PULMONARY: Decreased breath sounds bilaterally with scattered rhonchi. ABDOMEN: Soft, nontender, nondistended, normoactive bowel sounds. No palpable organomegaly. MUSCULOSKELETAL: No joint swelling or deformity. EXTREMITIES: No cyanosis, clubbing, or pedal edema. NEUROLOGICAL: Gross neurological examination did not reveal any focal deficits. SKIN: No rashes. - Labs CBC & Chem 7: 03/07/21 20:47 03/08/21 06:32 Labs: Abnormal Lab Results - Last 24 Hours (Table) 03/06/21 03/06/21 03/07/21 Range/Units 07:35 07:35 05:37 WBC 3.0 L (3.8-10.6) k/uL RBC 1.77 L (4.30-5.90) m/uL RDW 19.0 H (11.5-15.5) % Plt Count 80 L (150-450) k/uL Lymphocytes # (Manual) 0.51 L (1.0-4.8) k/uL Myelocytes # (Manual) 0.15 H 0.03 H (0) k/uL Procalcitonin 0.31 H (0.02-0.09) ng/mL Microbiology - Last 24 Hours (Table) 03/06/21 10:45 Gram Stain - Preliminary Sputum Sputum Culture - Preliminary 03/06/21 07:35 Blood Culture Gram Stain - Preliminary Blood 03/06/21 07:35 Blood Culture - Final Blood Assessment and Plan Assessment: 1. Acute hypoxemic respiratory failure; possibly multifactorial secondary to pneumonia versus mild CHF - Patient is placed on O2 per nasal cannula with plans to keep O2 saturation greater than 88-90%; we will plan to wean as able - Patient does not exhibit signs of fluid overload; we will monitor closely and hold off on diuretic therapy at this time 2. Healthcare associated pneumonia; patient has been placed on IV cefepime; bronchodilator nebulizer treatments; monitor CBC, CRP and pro-calcitonin; we will consult pulmonary service of further recommendations 3. Significant anemia with history of recent GI bleed; no complaining or evidence of GI bleed at this time; we will monitor H&H closely with plans to transfuse if hemoglobin drops below 7; we will start patient on Protonix 4. Electrolyte imbalance; hyponatremia, hypokalemia and hypomagnesemia; supplemented in ED; we will monitor electrolytes closely and plan to supplement as needed 5. CAD/CHF; no complaints of chest pain; shortness of breath related to pneumonia; no signs of fluid overload; we will continue with home dose of Lasix 40 mg daily and Aldactone 100 mg daily with further recommendations according to clinical course 6. Hypothyroidism; levothyroxin 100 MCG daily 7. Hypertension; Corgard 40 mg daily 8. Atrial fibrillation; remains rate controlled on Corgard; patient currently not on anticoagulation therapy due to GI bleed DVT prophylaxis; SCDs only due to history of recent GI bleed CODE STATUS; full code
--- NOTE | 2021-03-08 19:14 | P.PN ---
Subjective Progress Note Date: 03/08/21 Principal diagnosis: Acute hypoxemic respiratory failure; possibly multifactorial secondary to pneumonia versus mild CHF Healthcare associated pneumonia Severe anemia 65-year-old male patient with history of atrial fibrillation, CAD, CHF, hypertension, hypothyroidism who was recently discharged from the hospital after being admitted and treated for GI bleed and was discharged to follow-up for EGD as an outpatient, presents to ED with complaint of shortness of breath and excessive weakness; patient reports that he did develop some difficulty breat reza and cough at the time of discharge from last admission at which time he was placed on oral antibiotics and was sent home; patient states he continued to worsen over next few days; patient is vaccinated for COVID-19 Workup in ED reveals W BC SM 0.4, hemoglobin 7.2, hematocrit 21.2 and platelet c ount of 108, sodium 127, potassium 2.2, magnesium 1.3, BUN/creatinine of 10/0.62; troponin of 0.012 and BNP of 9640 03/07/2021 Patient is seen and evaluated in room at bedside; blood work and need for transfusion discussed with patient and is agreeable Vital signs are reviewed, temperature 98.2, pulse 92, respiration 18 and blood pressure 106/72 Lab data shows WBC 3.2, hemoglobin 5.9, hematocrit 17.0; 4 was hoping sodium 129, potassium 3.4, BUN/creatinine of 11/0.60; no obvious source of bleeding We will proceed with type and crossmatch and transfuse with 1 unit of packed RBCs; monitor H&H every 12 hours; start patient on Protonix 40 mg IV every 12 hours; stool occult blood with plans to consult GI if stool occult blood is positive Patient remains on IV antibiotics; has been evaluated by pulmonary service and recommending to continue with IV cefepime and azithromycin 03/08/2021 Seen sitting up in bedside chair; reports improvement in breathing Vital signs temperature 97.2, pulse 88, respirations 16 and blood pressure of 94/60 with O2 saturation of 90% Laboratory data today includes a sodium 134, potassium 4, chlorides 97, CO2 25, anion gap 12, BUN 12, and creatinine 0.8. Pro-calcitonin level was 0.28. Chest x-ray showed bilateral left greater than right patchy opacities, and mild interstitial edema. Today's chest x-ray was improved compared to the x-ray on admission. Sputum culture reveals MSSA; pulmonary service on board The patient remains on cefepime. Hemoglobin is being monitored closely and remained stable Objective - Vital Signs Vital signs: Vital Signs Temp 97.9 F 03/08/21 06:20 Pulse 88 03/08/21 08:46 Resp 17 03/08/21 06:20 BP 98/71 03/08/21 06:20 Pulse Ox 90 L 03/08/21 06:20 Intake & Output 03/07/21 03/08/21 03/08/21 18:59 06:59 18:59 Intake Total 0 2370 Output Total 400 Balance 0 1970 Weight 109.7 kg Intake: Intake, IV Titration 1100 Amount Cefepime 2 gm In Sodium 100 Chloride 0.9% 100 ml @ 25 mls/hr IVPB Q8HR JERRY Rx# :[id number] Sodium Chloride 0.9% 1, 1000 000 ml @ 75 mls/hr IV . [id number] JERRY Rx#:[id number] Oral 960 Blood Product 0 310 Rc As-1 Unit 0 310 [id number] Output: Urine 400 Other: Voiding Method External Catheter External Catheter Toilet Diaper # Voids 2 - Exam GENERAL: The patient is alert and oriented x3, not in any acute distress. Well developed, well nourished. HEENT: Pupils are round and equally reacting to light. EOMI. No scleral icterus. No conjunctival pallor. Normocephalic, atraumatic. No pharyngeal erythema. No thyromegaly. CARDIOVASCULAR: S1 and S2 present. No murmurs, rubs, or gallops. PULMONARY: Decreased breath sounds bilaterally with scattered rhonchi. ABDOMEN: Soft, nontender, nondistended, normoactive bowel sounds. No palpable organomegaly. MUSCULOSKELETAL: No joint swelling or deformity. EXTREMITIES: No cyanosis, clubbing, or pedal edema. NEUROLOGICAL: Gross neurological examination did not reveal any focal deficits. SKIN: No rashes. - Labs CBC & Chem 7: 03/07/21 20:47 03/08/21 06:32 Labs: Abnormal Lab Results - Last 24 Hours (Table) 03/07/21 03/07/21 03/07/21 Range/Units 05:37 10:42 12:55 RBC (4.30-5.90) m/uL Hgb (13.0-17.5) gm/dL Hct (39.0-53.0) % RDW (11.5-15.5) % Plt Count (150-450) k/uL Sodium 129 L (137-145) mmol/L Potassium 3.4 L (3.5-5.1) mmol/L Chloride 95 L (98-107) mmol/L Creatinine 0.60 L (0.66-1.25) mg/dL Glucose 106 H (74-99) mg/dL Calcium 8.2 L (8.4-10.2) mg/dL Procalcitonin 0.28 H (0.02-0.09) ng/mL Crossmatch See Detail 03/07/21 Range/Units 20:47 RBC 2.28 L (4.30-5.90) m/uL Hgb 7.7 L D (13.0-17.5) gm/dL Hct 22.1 L (39.0-53.0) % RDW 19.6 H (11.5-15.5) % Plt Count 113 L (150-450) k/uL Sodium (137-145) mmol/L Potassium (3.5-5.1) mmol/L Chloride (98-107) mmol/L Creatinine (0.66-1.25) mg/dL Glucose (74-99) mg/dL Calcium (8.4-10.2) mg/dL Procalcitonin (0.02-0.09) ng/mL Crossmatch Microbiology - Last 24 Hours (Table) 03/06/21 07:35 Blood Culture Gram Stain - Final Blood Blood Culture - Preliminary Staphylococcus epidermidis Coagulase Negative Staph 03/06/21 07:45 Blood Culture Gram Stain - Final Blood Blood Culture - Final Coagulase Negative Staph Coagulase Negative Staph#2 03/06/21 10:45 Gram Stain - Preliminary Sputum Sputum Culture - Preliminary Staphylococcus aureus 03/06/21 07:45 Blood Culture - Final Blood Assessment and Plan Assessment: 1. Acute hypoxemic respiratory failure; possibly multifactorial secondary to pneumonia versus mild CHF - Patient is placed on O2 per nasal cannula with plans to keep O2 saturation greater than 88-90%; we will plan to wean as able - Patient does not exhibit signs of fluid overload; we will monitor closely and hold off on diuretic therapy at this time 2. Healthcare associated pneumonia; patient has been placed on IV cefepime; bronchodilator nebulizer treatments; monitor CBC, CRP and pro-calcitonin; we will consult pulmonary service of further recommendations 3. Significant anemia with history of recent GI bleed; no complaining or evidence of GI bleed at this time; we will monitor H&H closely with plans to transfuse if hemoglobin drops below 7; we will start patient on Protonix 4. Electrolyte imbalance; hyponatremia, hypokalemia and hypomagnesemia; supplem ented in ED; we will monitor electrolytes closely and plan to supplement as needed 5. CAD/CHF; no complaints of chest pain; shortness of breath related to pneumonia; no signs of fluid overload; we will continue with home dose of Lasix 40 mg daily and Aldactone 100 mg daily with further recommendations according to clinical course 6. Hypothyroidism; levothyroxin 100 MCG daily 7. Hypertension; Corgard 40 mg daily 8. Atrial fibrillation; remains rate controlled on Corgard; patient currently not on anticoagulation therapy due to GI bleed DVT prophylaxis; SCDs only due to history of recent GI bleed CODE STATUS; full code
[2021-03-08] MEDS: SYMBICORT 160-4.5 MCG INHALER INHALATION SCH (20:06)
[2021-03-08] MEDS: QUEtiapine 50 MG TAB PO SCH (22:37)
[2021-03-09] MEDS: SODIUM CHLORIDE 0.9% 1,000 ML IV SCH ×2 (03:15→15:33)
[2021-03-09] MEDS: LEVOTHYROXINE 100 MCG TAB PO SCH (05:29)
[2021-03-09] MEDS: MAGNESIUM OXIDE 400 MG TAB PO SCH ×2 (08:30→21:57)
[2021-03-09] MEDS: THIAMINE 100 MG TAB PO SCH (08:30)
[2021-03-09] MEDS: FOLIC ACID 1 MG TAB PO SCH (08:30)
[2021-03-09] MEDS: SPIRONOLACTONE 25 MG TAB PO SCH (08:31)
[2021-03-09] MEDS: FERROUS SULFATE 325 MG TAB PO SCH ×2 (08:31→21:57)
[2021-03-09] MEDS: FUROSEMIDE 40 MG TAB PO SCH (08:31)
[2021-03-09] MEDS: CEFEPIME 2 GM in SODIUM CHLORIDE 0.9% 100 ML IVPB SCH ×4 (08:32→21:56)
[2021-03-09] MEDS: PANTOPRAZOLE 40 MG/10 ML VIAL IVP SCH ×2 (08:32→21:57)
[2021-03-09] MEDS: NICOTINE 14MG/24HR PATCH TRANSDERM SCH (08:32)
[2021-03-09] MEDS: IPRATROPIUM-ALBUTEROL 3 ML NEB INHALATION SCH ×4 (09:18→19:45)
[2021-03-09] MEDS: SYMBICORT 160-4.5 MCG INHALER INHALATION SCH ×2 (09:18→19:44)
[2021-03-09 10:41] LABS: African American GFR (CKD) 121.4 (60.0-200.0); Anion Gap 8.9 mmol/L (10.00-18.00); BUN/Creat Ratio 19.17 Ratio (12.00-20.00); Blood Urea Nitrogen 11.5 mg/dL (9.0-27.0); Calcium 8.3 mg/dL (8.7-10.3); Carbon Dioxide 26.1 mmol/L (20.0-27.5); Non-African American GFR(CKD) 104.8 (60.0-200.0); Potassium 3.6 mmol/L (3.5-5.5)
--- NOTE | 2021-03-09 12:12 | P.PN ---
Subjective Progress Note Date: 03/09/21 65-year-old male patient hospitalized for shortness of breath and weakness and diarrhea. He was recently inpatient for a GI bleed. The patient had complained of productive cough for approximately a week. The patient also has history of congestion heart failure and chronic atrial fibrillation. His COVID 19 testing was negative and the patient has taken his COVID 19 vaccination. Chest x-ray showed bilateral pulmonary infiltrates consistent with pneumonia. The patient had a pro calcitonin level of 0.28. Clinically the patient was improving and the patient was covered with IV cefepime. He is currently being treated for a healthcare associated pneumonia. The sputum sample that was collected on 03/06/2021 showed pseudomonas aeruginosa and staph aureus, the blood culture from 03/06/2021 showed coagulase-negative staph and his sputum was positive for MSSA and staph aureus and pseudomonas aeruginosa. Currently is on room air oxygen and a chest x-ray from yesterday showed bilateral left greater than right patchy opacities and interstitial edema, improved. Objective - Vital Signs Vital signs: Vital Signs Temp 97.9 F 03/09/21 08:00 Pulse 103 H 03/09/21 11:57 Resp 18 03/09/21 08:30 BP 96/61 03/09/21 08:00 Pulse Ox 95 03/09/21 09:19 Intake & Output 03/08/21 03/09/21 03/09/21 18:59 06:59 18:59 Intake Total 960 Output Total 900 900 Balance -900 60 Weight 110.6 kg Intake: Oral 960 Output: Urine 900 900 Other: Voiding Method Toilet Toilet Toilet Diaper Diaper Diaper # Voids 2 2 - Exam No acute distress, oriented 3. The patient looks very chronically ill. Room air saturation is 92%. No obvious respiratory distress or difficulty. HEENT examination is grossly unremarkable. Neck supple. Full range of motion. No adenopathy thyromegaly or neck vein di stention. Cardiovascular examination reveals regular rhythm rate. S1-S2 normal. No S3 or S4. No discernible murmur noted. Heart sounds are distant. Heart rate 88 bpm. Lungs reveal bilateral scattered rhonchi. Occasional crackles appreciated. No wheezes. Breath sounds are equal bilaterally, but diminished throughout. Abdomen soft bowel sounds are heard. No masses or tenderness. Extremities are intact. No cyanosis or clubbing. Lower extremity edema is noted. Skin reveals multiple areas of ecchymoses. Neurologic examination is brief but nonfocal. - Labs CBC & Chem 7: 03/07/21 20:47 03/09/21 06:07 Labs: Abnormal Lab Results - Last 24 Hours (Table) 03/09/21 Range/Units 06:07 Sodium 134 L (135-145) mmol/L Anion Gap 8.90 L (10.00-18.00) mmol/L Calcium 8.3 L (8.7-10.3) mg/dL Microbiology - Last 24 Hours (Table) 03/06/21 10:45 Gram Stain - Final Sputum Sputum Culture - Final Staphylococcus aureus Pseudomonas aeruginosa 03/06/21 07:35 Blood Culture Gram Stain - Final Blood Blood Culture - Preliminary Staphylococcus epidermidis Coagulase Negative Staph 03/06/21 07:45 Blood Culture Gram Stain - Final Blood Blood Culture - Final Coagulase Negative Staph Coagulase Negative Staph#2 Assessment and Plan Plan: #1. Acute hypoxic respiratory failure secondary to acute pneumonia, possibly healthcare acquired, COVID-19 PCR was negative. The sputum culture was positive for staph aureus, MSSA and pseudomonas aeruginosa. The patient is currently on IV cefepime. Oxygenation is improved and the patient is currently on room air oxygen. Chest x-ray from yesterday was also showing some improvement. #2. Suspect underlying history of COPD related to extensive history of tobacco history #3. 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 Chronic atrial fibrillation, currently not on any anticoagulation related to recent history of GI bleeding #5. Acute on chronic anemia, rule out possibility of bleeding. Patient will receive 1 unit of packed red blood cells today for hemoglobin of 5.9 #6. History of alcoholism, currently in remission #7. Former smoker #8. Hypertension #9. Moderate mitral regurgitation #10. Moderate pulmonary hypertension #11. Osteoporosis #12. Hyponatremia, possibly hypervolemia Plan: Continue cefepime, the patient has pseudomonas in his lungs. Clinically is feeling much better. I'm going to repeat his chest x-ray tomorrow. We will provide an incentive spirometer. Currently on room air oxygen. Overall patient is feeling better, No clear evidence of bleeding, despite the drop in hemoglobin Patient is receiving a unit of blood Continue breathing treatments We'll continue to follow his clinical course
[2021-03-09 12:17] LABS: HCT 19.3 % (39.6-50.0); HGB 5.9 g/dL (13.0-17.0); MCH 31.1 pg (27.0-32.0); MCHC 30.6 g/dL (32.0-37.0); MCV 101.6 fL (80.0-97.0); Mean Platelet Volume 9.8 fL (9.5-12.2); Platelet Count 93 X 10*3/uL (140-440); WBC 2.69 X 10*3/uL (4.50-10.00)
[2021-03-09 12:18] LABS: Basophils # (M) 0.03 X 10*3/uL (0.00-0.10); Eosinophils # (M) 0 X 10*3/uL (0.04-0.35); Hypochromasia (M) 2+; Lymphocytes # (M) 0.75 X 10*3/uL (0.90-5.00); Monocytes # (M) 0.16 X 10*3/uL (0.20-1.00); Myelocytes % 4 % (0-0); Neutrophils # (M) 1.64 X 10*3/uL (2.00-8.90); Neutrophils % (M) 61 %
--- NOTE | 2021-03-09 16:40 | P.CONS ---
History of Present Illness - Reason for Consult Consult date: 03/09/21 anemia Requesting physician: Cosmo Light - Chief Complaint cough and shortness of breath - History of Present Illness This a 65-year-old white male patient who presented to the emergency department with complaints of cough and shortness of breath with fever and chills. He's been diagnosed with pneumonia with a positive sputum Pseudomonas aeruginosa and staph aureus. He was recently hospitalized and discharged on 02/24/2021 for anemia and GI bleed. He has a past medical history including atrial fibrillation not on anticoagulation, heart failure, hypertension, alcohol dependence and thyroid disorder. Was noted to have a hemoglobin of 7.2 on admission with dropping to 5.9 the following day. He was given 1 unit of PRBC transfusion with a repeat hemoglobin is 7.7. Today again he dropped to 5.9 and is receiving another unit PRBC transfusion. Gastroenterology was consulted due to anemia. During his last admission he underwent an EGD with push enteroscopy on 02/13/2021 with findings of scattered nonbleeding gastric and duodenal AVMs status post argon plasma coagulation and mild antral gastritis. Patient has history of multiple endoscopic evaluations. He's been admitted several times for anemia and GI bleed. On 08/15/2020 he underwent an EGD and colonoscopy by Dr. Corbettwith findings of antral gastritis and polypectomy. 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 On 10/18/2020 he underwent a push enteroscopy by Dr. Power no wheezing 5 nonbleeding AVMs in the distal duodenum and proximal jejunum treated with argon plasma coagulation therapy. The patient denies any abdominal pain, nausea, or vomiting. Denies any hematemesis. States he has dark stool but he is on oral iron, does not report any blood in his stool. He's been having diarrhea for the last 1 month's duration two loose stools a day. Patient has a significant history of EtOH abuse since the age of [age] years old. Up to last year he was drinking 12-14 beers a day. Over the last year he states he's been cut down to 6-8 beers a week sometimes more. Patient has seen hematology in the past for pancytopenia. He currently denies any abdominal pain, nausea, or vomiting. He states he does have a decreased appetite. He denies any blood in his stool but states that they are chart due to his iron tablets. Today's labs WBC 2.69 hemoglobin 5.9 hematocrit 19 platelet count 93,000. liver enzymes on admission total bilirubin 3.7 AST 21 ALT 9 alkaline phosphatase 231. Patient was scheduled for outpatient EGD/colonoscopy on 03/03/21 but states he was not feeling well enough and did not show for appointment. Review of Systems REVIEW OF SYSTEMS: CARDIOPULMONARY: No chest pain. Productive cough, shortness of breath. Gastrointestinal: No abdominal pain. No nausea or vomiting. No hematemesis, coffee-ground emesis. No rectal bleeding, or melena. GENITOURINARY: No dysuria or hematuria. MUSCULOSKELETAL: Reports normal range of motion., Joint pain. SKIN: No rashes. No jaundice. ENDOCRINE: Fever and chills.. No excessive weight gain or loss. No polydipsia or polyuria. PSYCHIATRIC: Unremarkable. NEUROLOGY: No change in mental status. Denies dizziness, headache. ENT: Vision unremarkable. CONSTITUTIONAL: Decreased appetite. Weight loss. Fever and chills. No night sweats. Past Medical History Past Medical History: Atrial Fibrillation, Heart Failure, Hypertension, Osteoarthritis (OA), Thyroid Disorder Additional Past Medical History / Comment(s): having dk colored stools, anemia,received 1rst dose of Moderna vaccine,Had upper respiratory infection May 2020 tx with antibiotics, had negative covid test, chronic pain low back, spinal stenosis, past Dimas's palsy. History of Any Multi-Drug Resistant Organisms: None Reported Past Surgical History: Hernia Repair Additional Past Surgical History / Comment(s): CARROLL,Abdominal hernia repair, R thigh fatty tumor removed, colonoscopies, epidural injections low back. Patient had two molars removed about 5 weeks ago. Past Anesthesia/Blood Transfusion Reactions: No Reported Reaction Past Psychological History: Anxiety Smoking Status: Former smoker Past Alcohol Use History: Occasional Past Drug Use History: None Reported - Past Family History Father Family Medical History: Hypertension Additional Family Medical History / Comment(s): heart valve replacements. Medications and Allergies Home Medications Medication Instructions Recorded Confirmed Type HYDROcodone/APAP 10-325MG [[place] 1 tab PO QID PRN 07/05/17 03/06/21 History 10-325] Furosemide [Lasix] 40 mg PO DAILY 08/12/20 03/06/21 History Levothyroxine Sodium [Synthroid] 100 mcg PO DAILY 10/14/20 03/06/21 History Omeprazole 40 mg PO DAILY 10/14/20 03/06/21 History Ferrous Sulfate [Feosol] 325 mg PO BID #60 tab 10/18/20 03/06/21 Rx Albuterol Inhaler [Ventolin Hfa 2 puff INHALATION RT-QID PRN 02/10/21 03/06/21 History Inhaler] Nadolol [Corgard] 40 mg PO DAILY 02/10/21 03/06/21 History Folic Acid 1 mg PO DAILY tab 02/18/21 03/06/21 Rx Magnesium Oxide [Mag-Ox] 400 mg PO BID #0 tab 02/18/21 03/06/21 Rx Nicotine 14Mg/24Hr Patch [Habitrol] 1 patch TRANSDERM DAILY patch 02/18/21 03/06/21 Rx QUEtiapine [SEROquel] 50 mg PO HS #0 02/18/21 03/06/21 Rx Spironolactone 100 mg PO DAILY 03/06/21 03/06/21 History Thiamine [Vitamin B-1] 50 mg PO DAILY 03/06/21 03/06/21 History Allergies Allergy/AdvReac Type Severity Reaction Status Date / Time cholesterol meds AdvReac See Uncoded 03/06/21 07:24 comments Physical Exam Vitals: Vital Signs Temp Pulse Pulse Resp BP BP Pulse Ox 03/09/21 14:36 98.6 F 105 H 16 114/76 03/09/21 14:26 98.2 F 105 H 16 108/70 03/09/21 14:00 97.9 F 64 18 114/73 94 L 03/09/21 12:10 107 H 03/09/21 11:57 103 H 03/09/21 09:31 109 H 03/09/21 09:19 105 H 95 03/09/21 08:30 18 03/09/21 08:00 97.9 F 81 18 96/61 95 03/09/21 02:33 97.6 F 76 18 98/64 98 03/08/21 20:18 56 L 03/08/21 20:11 83 03/08/21 20:00 73 16 03/08/21 19:09 97.8 F 73 16 146/69 94 L 03/08/21 16:26 88 03/08/21 16:16 92 Intake and Output 03/08/21 03/09/21 03/09/21 22:59 06:59 14:59 Intake Total 960 0 Output Total 1800 Balance -840 0 Intake: Oral 960 Blood Product 0 Rc As-1 Unit 0 [id number] Output: Urine 1800 Other: Voiding Method Toilet Toilet Diaper Diaper # Voids 2 Weight 110.6 kg General appearance: The patient is alert, oriented, appears in no acute distress.pale. HET: Head is normocephalic and atraumatic. Conjunctiva pink. Sclera anicteric. Neck: Supple without lymphadenopathy. Trachea midline. Heart: S1 S2. Regular rate and rhythm. Lungs: Clear to auscultation. Abdomen: Soft, nontender, nondistended with bowel sounds. No guarding or rigidity. Skin: No rashes. No jaundice. Extremities: Pale. Bilateral lower extremity edema. Neurological: No focal deficits. Alert and oriented x3. Results CBC & Chem 7: 03/09/21 06:07 03/09/21 06:07 Labs: Abnormal Lab Results - Last 24 Hours (Table) 03/07/21 03/09/21 03/09/21 Range/Units 10:42 06:07 06:07 WBC 2.69 L (4.50-10.00) X 10*3/uL RBC 1.90 L (4.40-5.60) X 10*6/uL Hgb 5.9 L* (13.0-17.0) g/dL Hct 19.3 L* (39.6-50.0) % MCV 101.6 H (80.0-97.0) fL MCHC 30.6 L (32.0-37.0) g/dL RDW 21.0 H (11.5-14.5) % Plt Count 93 L (140-440) X 10*3/uL Plt Count Comment DECREASED A Myelocytes % 4 H (0-0) % Neutrophils # (Manual) 1.64 L (2.00-8.90) X 10*3/uL Lymphocytes # (Manual) 0.75 L (0.90-5.00) X 10*3/uL Monocytes # (Manual) 0.16 L (0.20-1.00) X 10*3/uL Eosinophils # (Manual) 0 L (0.04-0.35) X 10*3/uL Immature Plt Fraction 6.3 H (1.1-6.1) % Sodium 134 L (135-145) mmol/L Anion Gap 8.90 L (10.00-18.00) mmol/L Calcium 8.3 L (8.7-10.3) mg/dL Crossmatch See Detail Microbiology - Last 24 Hours (Table) 03/06/21 10:45 Gram Stain - Final Sputum Sputum Culture - Final Staphylococcus aureus Pseudomonas aeruginosa 03/06/21 07:35 Blood Culture Gram Stain - Final Blood Blood Culture - Preliminary Staphylococcus epidermidis Coagulase Negative Staph 03/06/21 07:45 Blood Culture Gram Stain - Final Blood Blood Culture - Final Coagulase Negative Staph Coagulase Negative Staph#2 Assessment and Plan (1) Anemia Narrative/Plan: 65-year-old who was admitted to the hospital with pneumonia with positive sputum of Pseudomonas aeruginosa and staph aureus. He has had multiple admissions in the past for anemia and GI bleeds. He has had multiple endoscopies with his last one being 02/13/[address] Power which he underwent a EGD with push enteroscopy significant for scattered nonbleeding gastric AVMsrated with argon plasma. At this admission he was noted to have hemoglobin of 7.2 with a drop down to 5.9 he was given 1 unit of PRBC transfusion with a repeat hemoglobin is 7.7. Again today he had a drop in his hemoglobin of 5.9 therefore gastroenterology was consulted. Patient denies any blood in his stool denies any hematemesis. States he does have dark stool but he is been on oral iron. He is currently getting 1 unit PRBC transfusion. He denies abdominal pain, nausea, or vomiting. Patient was scheduled to have an outpatient EGD and colonoscopy on 1122 however he states he was not feeling well enough and did not make the appointment. At this time the patient continues to state that he is not feeling well enough to undergo any endoscopic evaluation and just wishes to receive blood at this time. This seems to be reasonable as he currently has underlying pneumonia. We'll continue to monitor with serial CBC and transfuse as needed for hemoglobin under 7. Current Visit: No Status: Acute Code(s): D64.9 - ANEMIA, UNSPECIFIED SNOMED Code(s): 420368099 (2) GI AVM (gastrointestinal arteriovenous vascular malformation) Narrative/Plan: The patient has a history of nonbleeding AVM found on last EGD with push enteroscopy treated with argon plasma on 02/13/2021 Current Visit: No Status: Acute Code(s): K55.20 - ANGIODYSPLASIA OF COLON WITHOUT HEMORRHAGE SNOMED Code(s): 808765171 (3) Hypoxia Current Visit: Yes Status: Acute Code(s): R09.02 - HYPOXEMIA SNOMED Code(s): 973959977 (4) Pneumonia Current Visit: Yes Status: Acute Code(s): J18.9 - PNEUMONIA, UNSPECIFIED ORGANISM SNOMED Code(s): 864358527 (5) Pancytopenia Current Visit: Yes Status: Chronic Priority: Medium Code(s): D61.818 - OTHER PANCYTOPENIA SNOMED Code(s): 310245789 (6) Alcohol abuse Current Visit: No Status: Acute Code(s): F10.10 - ALCOHOL ABUSE, UNCOMPLICATED SNOMED Code(s): 96953230 Plan: 1. Continue symptomatic and supportive care 2. Daily CBC, transfuse for hemoglobin less than 7 3. Agree with PRBC transfusion 4. Diet as tolerated 5. Discussed with patient recommend EGD and colonoscopy at some point in time. However feel it is reasonable to hold off at this time and continue monitoring for signs and symptoms of GI bleed. 6. Will discontinue oral iron and give IV iron Thank you for this consultation, we will continue to follow. Dr. Anderson Power I agree with the dictator's note, documented as a scribe by Niki Davis.
--- NOTE | 2021-03-09 18:04 | P.PN ---
Subjective Progress Note Date: 03/09/21 Principal diagnosis: This is 65-year-old gentleman recently hospitalized with acute GI bleed, underwent EGD, enteroscopy and diagnosed with scattered nonbleeding gastric and duodenal AVMs, mild antral gastritis and multiple other medical issues. Currently admitted with acute hypoxic respiratory failure secondary to suspected healthcare acquired pneumonia. Sputum cultures reporting staph aureus, MSSA and pseudomonas aeruginosa. Maintained on cefepime and nebulized bronchodilators. Feels better today. Labs have returned with hemoglobin decreased to 5.9 with no further evidence of bleeding.WBC 2.69, platelet count 93,000. liver enzymes on admission total bilirubin 3.7 AST 21 ALT 9 alkaline phosphatase 231. Patient failed to show up for initially scheduled outpatient EGD/colonoscopy on 03/03/21. Objective - Vital Signs Vital signs: Vital Signs Temp 98.2 F 03/09/21 16:47 Pulse 100 03/09/21 16:49 Resp 18 03/09/21 16:47 BP 116/90 03/09/21 16:47 Pulse Ox 96 03/09/21 15:06 Intake & Output 03/08/21 03/09/21 03/09/21 18:59 06:59 18:59 Intake Total 960 310 Output Total 900 900 Balance -900 60 310 Weight 110.6 kg Intake: Oral 960 Blood Product 310 Rc As-1 Unit 310 [id number] Output: Urine 900 900 Other: Voiding Method Toilet Toilet Toilet Diaper Diaper Diaper # Voids 2 2 - Exam PHYSICAL EXAMINATION: GENERAL: Sitting up in bed, Alert and oriented x3, no acute distress, pale patrick color HEENT: Pupils are round and equally reacting to light. EOMI. Normocephalic, atraumatic. CARDIOVASCULAR: S1 and S2 present. Irregular, + systolic murmur, rubs, or rojas ps. PULMONARY: Bilateral bases diminished, no crackles, minimal fine expiratory wheezing. ABDOMEN: Soft, nontender, nondistended ,normoactive bowel sounds. No guarding or rigidity. MUSCULOSKELETAL:No joint swelling or deformity. EXTREMITIES: Bilateral lower extremity edema,no calf tenderness. NEUROLOGICAL: Gross neurological examination did not reveal any focal deficits. SKIN: No rashes. - Labs CBC & Chem 7: 03/09/21 06:07 03/09/21 06:07 Labs: Abnormal Lab Results - Last 24 Hours (Table) 03/07/21 03/09/21 03/09/21 Range/Units 10:42 06:07 06:07 WBC 2.69 L (4.50-10.00) X 10*3/uL RBC 1.90 L (4.40-5.60) X 10*6/uL Hgb 5.9 L* (13.0-17.0) g/dL Hct 19.3 L* (39.6-50.0) % MCV 101.6 H (80.0-97.0) fL MCHC 30.6 L (32.0-37.0) g/dL RDW 21.0 H (11.5-14.5) % Plt Count 93 L (140-440) X 10*3/uL Plt Count Comment DECREASED A Myelocytes % 4 H (0-0) % Neutrophils # (Manual) 1.64 L (2.00-8.90) X 10*3/uL Lymphocytes # (Manual) 0.75 L (0.90-5.00) X 10*3/uL Monocytes # (Manual) 0.16 L (0.20-1.00) X 10*3/uL Eosinophils # (Manual) 0 L (0.04-0.35) X 10*3/uL Immature Plt Fraction 6.3 H (1.1-6.1) % Sodium 134 L (135-145) mmol/L Anion Gap 8.90 L (10.00-18.00) mmol/L Calcium 8.3 L (8.7-10.3) mg/dL Crossmatch See Detail Microbiology - Last 24 Hours (Table) 03/06/21 10:45 Gram Stain - Final Sputum Sputum Culture - Final Staphylococcus aureus Pseudomonas aeruginosa Assessment and Plan Assessment: -Acute hypoxic respiratory failure secondary to acute pneumonia possibly healthcare acquired. Sputum culture positive for staph aureus,MSSA and pseudomonas aeruginosa -Acute on chronic anemia, status post 1 unit of packed RBCs -Recently hospitalized with Symptomatic Anemia secondary to acute upper GI bleed from AV malformation,s/p transfusion of 6 units of packed RBCs, s/p Repeat EGD on 02/13 reported nonbleeding AVMs, suspect chronic -probably related to underlying liver cirrhosis, portal hypertension. - Pancytopenia suspected to be related to bone marrow suppression from alcohol abuse. Patient is scheduled to follow-up with hematology. -Recent Volume overload secondary to cirrhosis, status post paracentesis -Hyponatremia appears to be hypervolemic hyponatremia from cirrhosis. -Chronic Paroxysmal atrial fibrillation, not on anticoagulation due to anemia -Hypomagnesemia: Probably due to chronic alcohol abuse, replace per protocol we will add oral magnesium daily. -Nicotine use: Counseling was provided -Pulmonary hypertension -Moderate to severe mitral regurgitation -Chronic diastolic congestive heart failure current EF is 55% -Chronic alcohol abuse with alcoholic liver cirrhosis -Hypertension -Hypothyroidism -Hypoalbuminemia -COPD Plan: Continue on current medication regime ,monitoring and symptomatic treatment. Maintained cefepime, aggressive pulmonary toileting with incentive spirometer reinforced. Labs have returned reporting a drop in hemoglobin 5.9, transfusing 1 unit of packed RBCs. GI consulted. The impression and plan of care has been dictated as directed. : I performed a history and examination of this patient, discussed the same with the dictator. I agree with the dictator's note ,documented as a scribe. Any additional findings or plans will be noted.
[2021-03-09] MEDS: HYDROcodone/APAP 10-325MG 1 EACH TAB PO PRN (21:57)
[2021-03-10] MEDS: QUEtiapine 50 MG TAB PO SCH ×2 (02:27→05:46)
[2021-03-10] MEDS: SODIUM CHLORIDE 0.9% 1,000 ML IV SCH ×2 (02:30→20:27)
[2021-03-10] MEDS: LEVOTHYROXINE 100 MCG TAB PO SCH (06:06)
--- NOTE | 2021-03-10 07:51 | XR ---
EXAMINATION TYPE: XR chest 1V portable DATE OF EXAM: 03/10/2021 COMPARISON: 03/08/2011 INDICATION: Pneumonia TECHNIQUE: Single frontal view of the chest is obtained. FINDINGS: The heart size is normal. The pulmonary vasculature is normal. Patchy infiltrates in the left lung appears similar to prior exam. IMPRESSION: 1. Left mid and lower lung field infiltrates, stable from comparison. Continued follow-up is recommen ded.
[2021-03-10] MEDS: SYMBICORT 160-4.5 MCG INHALER INHALATION SCH ×2 (08:15→20:19)
[2021-03-10] MEDS: IPRATROPIUM-ALBUTEROL 3 ML NEB INHALATION SCH ×4 (08:15→20:20)
[2021-03-10 09:40] LABS: Anion Gap 8.3 mmol/L (10.00-18.00); BUN/Creat Ratio 15.71 Ratio (12.00-20.00); Calcium 8.6 mg/dL (8.7-10.3); Carbon Dioxide 26.7 mmol/L (20.0-27.5); Non-African American GFR(CKD) 98.3 (60.0-200.0); Potassium 3.9 mmol/L (3.5-5.5)
[2021-03-10] MEDS: HYDROcodone/APAP 10-325MG 1 EACH TAB PO PRN ×3 (09:43→21:18)
[2021-03-10] MEDS: SPIRONOLACTONE 25 MG TAB PO SCH (09:43)
[2021-03-10] MEDS: FOLIC ACID 1 MG TAB PO SCH (09:44)
[2021-03-10] MEDS: FUROSEMIDE 40 MG TAB PO SCH (09:44)
[2021-03-10] MEDS: NICOTINE 14MG/24HR PATCH TRANSDERM SCH (09:45)
[2021-03-10] MEDS: MAGNESIUM OXIDE 400 MG TAB PO SCH ×2 (09:45→21:18)
[2021-03-10] MEDS: THIAMINE 100 MG TAB PO SCH (09:45)
[2021-03-10] MEDS: FERROUS SULFATE 325 MG TAB PO SCH ×2 (09:45→21:18)
[2021-03-10] MEDS: PANTOPRAZOLE 40 MG/10 ML VIAL IVP SCH ×2 (09:46→21:17)
[2021-03-10] MEDS: CEFEPIME 2 GM in SODIUM CHLORIDE 0.9% 100 ML IVPB SCH ×3 (09:46→15:41)
[2021-03-10] MEDS ORDERED: PEG 3350-NA SULF,BICARB,CL/KCL 4,000 ML BOTTLE PO ONE (10:04)
[2021-03-10] MEDS ORDERED: PROMETHAZINE 25 MG TAB PO PRN (10:05)
[2021-03-10 10:58] LABS: Basophils # (M) 0 X 10*3/uL (0.00-0.10); Eosinophils # (M) 0.07 X 10*3/uL (0.04-0.35); HCT 23.1 % (39.6-50.0); HGB 7.2 g/dL (13.0-17.0); Lymphocytes # (M) 0.55 X 10*3/uL (0.90-5.00); MCH 30.5 pg (27.0-32.0); MCHC 31.2 g/dL (32.0-37.0); MCV 97.9 fL (80.0-97.0); Mean Platelet Volume 9.7 fL (9.5-12.2); Monocytes # (M) 0.45 X 10*3/uL (0.20-1.00); Neutrophils # (M) 2.37 X 10*3/uL (2.00-8.90); Neutrophils % (M) 69 %; Platelet Count 102 X 10*3/uL (140-440); RBC 2.36 X 10*6/uL (4.40-5.60); RDW 20.6 % (11.5-14.5); WBC 3.44 X 10*3/uL (4.50-10.00)
[2021-03-10] MEDS: ALPRAZolam 0.5 MG TAB PO PRN ×2 (11:36→21:17)
--- NOTE | 2021-03-10 12:33 | P.PN ---
Subjective Progress Note Date: 03/10/21 65-year-old male patient hospitalized for shortness of breath and weakness and diarrhea. He was recently inpatient for a GI bleed. The patient had complained of productive cough for approximately a week. The patient also has history of congestion heart failure and chronic atrial fibrillation. His COVID 19 testing was negative and the patient has taken his COVID 19 vaccination. Chest x-ray showed bilateral pulmonary infiltrates consistent with pneumonia. The patient had a pro calcitonin level of 0.28. Clinically the patient was improving and the patient was covered with IV cefepime. He is currently being treated for a healthcare associated pneumonia. The sputum sample that was collected on 03/06/2021 showed pseudomonas aeruginosa and staph aureus, the blood culture from 03/06/2021 showed coagulase-negative staph and his sputum was positive for MSSA and staph aureus and pseudomonas aeruginosa. Currently is on room air oxygen and a chest x-ray from yesterday showed bilateral left greater than right patchy opacities and interstitial edema, improved. 03/10/2021, the patient is being seen for a follow-up. Is currently on room air oxygen with a pulse ox of 98%. He remains on IV cefepime. He is doing well. No specific complaints. His repeat blood work shows a white cell count of 3.4 with a hemoglobin of 7.2. His platelet counts are low at 102. Normal electrolytes. Normal renal function. Sodium level is at 133. The chest x-ray that was done as a follow-up today showed improvement in the right lung findings and the patient has some persistent infiltration of the left midlung area which is essentially stable compared to the earlier chest x-ray. Clinically however, the patient is feeling better. Hemoglobin is stable and the patient received a unit of packed RBC. GI service on the case and the patient is being scheduled for endoscopy including EGD and colonoscopy. Objective - Vital Signs Vital signs: Vital Signs Temp 98.2 F 03/10/21 07:54 Pulse 96 03/10/21 08:26 Resp 16 03/10/21 07:54 BP 115/79 03/10/21 07:54 Pulse Ox 98 03/10/21 08:15 Intake & Output 03/09/21 03/10/21 03/10/21 18:59 06:59 18:59 Intake Total 310 960 Output Total 900 Balance 310 60 Weight 100.5 kg Intake: Oral 960 Blood Product 310 Rc As-1 Unit 310 [id number] Output: Urine 900 Other: Voiding Method Toilet Toilet Diaper Diaper # Voids 5 1 # Bowel Movements 1 2 - Exam No acute distress, oriented 3. The patient looks very chronically ill. Room air saturation is 92%. No obvious respiratory distress or difficulty. HEENT examination is grossly unremarkable. Neck supple. Full range of motion. No adenopathy thyromegaly or neck vein distention. Cardiovascular examination reveals regular rhythm rate. S1-S2 normal. No S3 or S4. No discernible murmur noted. Heart sounds are distant. Heart rate 88 bpm. Lungs reveal bilateral scattered rhonchi. Occasional crackles appreciated. No wheezes. Breath sounds are equal bilaterally, but diminished throughout. Abdomen soft bowel sounds are heard. No masses or tenderness. Extremities are intact. No cyanosis or clubbing. Lower extremity edema is noted. Skin reveals multiple areas of ecchymoses. Neurologic examination is brief but nonfocal. - Labs CBC & Chem 7: 03/10/21 05:30 03/10/21 05:30 Labs: Abnormal Lab Results - Last 24 Hours (Table) 03/07/21 03/09/21 03/10/21 Range/Units 10:42 06:07 05:30 WBC 2.69 L 3.44 L (4.50-10.00) X 10*3/uL RBC 1.90 L 2.36 L (4.40-5.60) X 10*6/uL Hgb 5.9 L* 7.2 L (13.0-17.0) g/dL Hct 19.3 L* 23.1 L (39.6-50.0) % MCV 101.6 H 97.9 H (80.0-97.0) fL MCHC 30.6 L 31.2 L (32.0-37.0) g/dL RDW 21.0 H 20.6 H (11.5-14.5) % Plt Count 93 L 102 L (140-440) X 10*3/uL Plt Count Comment DECREASED A DECREASED A Myelocytes % 4 H (0-0) % Neutrophils # (Manual) 1.64 L (2.00-8.90) X 10*3/uL Lymphocytes # (Manual) 0.75 L 0.55 L (0.90-5.00) X 10*3/uL Monocytes # (Manual) 0.16 L (0.20-1.00) X 10*3/uL Eosinophils # (Manual) 0 L (0.04-0.35) X 10*3/uL Immature Plt Fraction 6.3 H (1.1-6.1) % Sodium (135-145) mmol/L Anion Gap (10.00-18.00) mmol/L Calcium (8.7-10.3) mg/dL Crossmatch See Detail 03/10/21 Range/Units 05:30 WBC (4.50-10.00) X 10*3/uL RBC (4.40-5.60) X 10*6/uL Hgb (13.0-17.0) g/dL Hct (39.6-50.0) % MCV (80.0-97.0) fL MCHC (32.0-37.0) g/dL RDW (11.5-14.5) % Plt Count (140-440) X 10*3/uL Plt Count Comment Myelocytes % (0-0) % Neutrophils # (Manual) (2.00-8.90) X 10*3/uL Lymphocytes # (Manual) (0.90-5.00) X 10*3/uL Monocytes # (Manual) (0.20-1.00) X 10*3/uL Eosinophils # (Manual) (0.04-0.35) X 10*3/uL Immature Plt Fraction (1.1-6.1) % Sodium 133 L (135-145) mmol/L Anion Gap 8.30 L (10.00-18.00) mmol/L Calcium 8.6 L (8.7-10.3) mg/dL Crossmatch Microbiology - Last 24 Hours (Table) 03/06/21 10:45 Gram Stain - Final Sputum Sputum Culture - Final Staphylococcus aureus Pseudomonas aeruginosa Assessment and Plan Plan: #1. Acute hypoxic respiratory failure secondary to acute pneumonia, possibly healthcare acquired, COVID-19 PCR was negative. The sputum culture was positive for staph aureus, MSSA and pseudomonas aeruginosa. The patient is currently on IV cefepime. Oxygenation is improved and the patient is currently on room air oxygen. Chest x-ray from today is stable and the patient has a stable consolidation of the left lung. The patient remains on IV cefepime. The patient is on room air oxygen., #2. Suspect underlying history of COPD related to extensive history of tobacco history #3. 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 Chronic atrial fibrillation, currently not on any anticoagulation related to recent history of GI bleeding #5. Acute on chronic anemia, rule out possibility of bleeding. Patient will receive 1 unit of packed red blood cells today for hemoglobin of 5.9Hemoglobin is improved and the patient is being considered for colonoscopy and EGD. #6. History of alcoholism, currently in remission #7. Former smoker #8. Hypertension #9. Moderate mitral regurgitation #10. Moderate pulmonary hypertension #11. Osteoporosis #12. Hyponatremia, possibly hypervolemia Plan: Continue cefepime, the patient has pseudomonas in his lungs. Clinically stable incentive spirometer. Currently on room air oxygen. Overall patient is feeling better, No clear evidence of bleeding, despite the drop in hemoglobin, transfuse 2 units of packed RBC and the patient is going to have EGD and colonoscopy Continue breathing treatments We'll continue to follow his clinical course
--- NOTE | 2021-03-10 15:49 | P.PN ---
Subjective Progress Note Date: 03/10/21 Principal diagnosis: Anemia 65-year-old male who was admitted and treated for pneumonia had a drop in his hemoglobin down to 5.9. Yesterday he had 1 unit of PRBC transfusion with a repeat hemoglobin today is 7.2. Cold stools not obtained. Patient is denying any abdominal pain, nausea, or vomiting. States his stool is been black but he states that he thinks is related to his iron. Yesterday was discussed with him to proceed with EGD and colonoscopy as he was scheduled for an outpatient EGD and colonoscopy on 03/03/2021 but did not show up due to not feeling well. Yest erday patient had declined proceeding with endoscopic evaluation, however today he is agreeable. Objective - Vital Signs Vital signs: Vital Signs Temp 98.2 F 03/10/21 07:54 Pulse 96 03/10/21 08:26 Resp 16 03/10/21 07:54 BP 115/79 03/10/21 07:54 Pulse Ox 98 03/10/21 08:15 Intake & Output 03/09/21 03/10/21 03/10/21 18:59 06:59 18:59 Intake Total 310 960 Output Total 900 Balance 310 60 Weight 100.5 kg Intake: Oral 960 Blood Product 310 Rc As-1 Unit 310 [id number] Output: Urine 900 Other: Voiding Method Toilet Toilet Diaper Diaper # Voids 5 1 # Bowel Movements 1 2 - Exam General appearance: The patient is alert, oriented, appears in no acute distress. Pale. HET: Head is normocephalic and atraumatic. Conjunctiva pink. Sclera anicteric. Neck: Supple without lymphadenopathy. Abdomen: Soft, nontender, nondistended with bowel sounds. No guarding or rigidity. Extremities: Normal skin color and turgor. No pedal edema Skin: No rashes, no jaundice. Pale. Neurological: No focal deficits. Alert and oriented x 3. - Labs CBC & Chem 7: 03/10/21 05:30 03/10/21 05:30 Labs: Abnormal Lab Results - Last 24 Hours (Table) 03/07/21 03/09/21 03/09/21 Range/Units 10:42 06:07 06:07 WBC 2.69 L (4.50-10.00) X 10*3/uL RBC 1.90 L (4.40-5.60) X 10*6/uL Hgb 5.9 L* (13.0-17.0) g/dL Hct 19.3 L* (39.6-50.0) % MCV 101.6 H (80.0-97.0) fL MCHC 30.6 L (32.0-37.0) g/dL RDW 21.0 H (11.5-14.5) % Plt Count 93 L (140-440) X 10*3/uL Plt Count Comment DECREASED A Myelocytes % 4 H (0-0) % Neutrophils # (Manual) 1.64 L (2.00-8.90) X 10*3/uL Lymphocytes # (Manual) 0.75 L (0.90-5.00) X 10*3/uL Monocytes # (Manual) 0.16 L (0.20-1.00) X 10*3/uL Eosinophils # (Manual) 0 L (0.04-0.35) X 10*3/uL Immature Plt Fraction 6.3 H (1.1-6.1) % Sodium 134 L (135-145) mmol/L Anion Gap 8.90 L (10.00-18.00) mmol/L Calcium 8.3 L (8.7-10.3) mg/dL Crossmatch See Detail 03/10/21 Range/Units 05:30 WBC (4.50-10.00) X 10*3/uL RBC (4.40-5.60) X 10*6/uL Hgb (13.0-17.0) g/dL Hct (39.6-50.0) % MCV (80.0-97.0) fL MCHC (32.0-37.0) g/dL RDW (11.5-14.5) % Plt Count (140-440) X 10*3/uL Plt Count Comment Myelocytes % (0-0) % Neutrophils # (Manual) (2.00-8.90) X 10*3/uL Lymphocytes # (Manual) (0.90-5.00) X 10*3/uL Monocytes # (Manual) (0.20-1.00) X 10*3/uL Eosinophils # (Manual) (0.04-0.35) X 10*3/uL Immature Plt Fraction (1.1-6.1) % Sodium 133 L (135-145) mmol/L Anion Gap 8.30 L (10.00-18.00) mmol/L Calcium 8.6 L (8.7-10.3) mg/dL Crossmatch Microbiology - Last 24 Hours (Table) 03/06/21 10:45 Gram Stain - Final Sputum Sputum Culture - Final Staphylococcus aureus Pseudomonas aeruginosa Assessment and Plan (1) Anemia Narrative/Plan: 65-year-old who was admitted to the hospital with pneumonia with positive sputum of Pseudomonas aeruginosa and staph aureus. He has had multiple admissions in the past for anemia and GI bleeds. He has had multiple endoscopies with his last one being 02/13/[address] Power which he underwent a EGD with push enteroscopy significant for scattered nonbleeding gastric AVMsrated with argon plasma. At this admission he was noted to have hemoglobin of 7.2 with a drop down to 5.9 he was given 1 unit of PRBC transfusion with a repeat hemoglobin is 7.7. Again today he had a drop in his hemoglobin of 5.9 therefore gastroenterology was consulted. Patient denies any blood in his stool denies any hematemesis. States he does have dark stool but he is been on oral iron. He is currently getting 1 unit PRBC transfusion. He denies abdominal pain, nausea, or vomiting. Patient was scheduled to have an outpatient EGD and colonoscopy on 1122 however he states he was not feeling well enough and did not make the appointment. At this time the patient continues to state that he is not feeling well enough to undergo any endoscopic evaluation and just wishes to receive blood at this time. This seems to be reasonable as he currently has underlying pneumonia. We'll continue to monitor with serial CBC and transfuse as needed for hemoglobin under 7. Repeat hemoglobin today 7.2. Patient continues to deny any alta evidence of GI bleed however he is agreeable to proceed with EGD and colonoscopy. Current Visit: No Status: Acute Code(s): D64.9 - ANEMIA, UNSPECIFIED SNOMED Code(s): 264468054 (2) GI AVM (gastrointestinal arteriovenous vascular malformation) Narrative/Plan: The patient has a history of nonbleeding AVM found on last EGD with push enteroscopy treated with argon plasma on 02/13/2021 Current Visit: No Status: Acute Code(s): K55.20 - ANGIODYSPLASIA OF COLON WITHOUT HEMORRHAGE SNOMED Code(s): 819080718 (3) Hypoxia Current Visit: Yes Status: Acute Code(s): R09.02 - HYPOXEMIA SNOMED Code(s): 910474202 (4) Pneumonia Current Visit: Yes Status: Acute Code(s): J18.9 - PNEUMONIA, UNSPECIFIED ORGANISM SNOMED Code(s): 333477283 (5) Pancytopenia Current Visit: Yes Status: Chronic Priority: Medium Code(s): D61.818 - OTHER PANCYTOPENIA SNOMED Code(s): 234925051 (6) Alcohol abuse Current Visit: No Status: Acute Code(s): F10.10 - ALCOHOL ABUSE, UNCOMPLICATED SNOMED Code(s): 17464583 Plan: 1. Continue symptomatic and supportive care 2. Daily CBC, transfuse for hemoglobin less than 7 3. Clear liquid diet, nothing by mouth after midnight 4. Bowel prep this afternoon 5. Patient scheduled for EGD with possible push enteroscopy and colonoscopy tomorrow Thank you for this consultation, we will continue to follow. Dr. Anderson Power I agree with the dictator's note, documented as a scribe by Niki Davis.
--- NOTE | 2021-03-10 18:24 | P.PN ---
Subjective Progress Note Date: 03/10/21 Principal diagnosis: This is 65-year-old gentleman recently hospitalized with acute GI bleed, underwent EGD, enteroscopy and diagnosed with scattered nonbleeding gastric and duodenal AVMs, mild antral gastritis and multiple other medical issues. Currently admitted with acute hypoxic respiratory failure secondary to suspected healthcare acquired pneumonia. Sputum cultures reporting staph aureus, MSSA and pseudomonas aeruginosa. Maintained on cefepime and nebulized bronchodilators. Feels better today. Labs have returned with hemoglobin decreased to 5.9 with no further evidence of bleeding.WBC 2.69, platelet count 93,000. liver enzymes on admission total bilirubin 3.7 AST 21 ALT 9 alkaline phosphatase 231. Patient failed to show up for initially scheduled outpatient EGD/colonoscopy on 03/03/21. 03/10/2021 received 1 unit of packed RBCs yesterday with current hemoglobin up to 7.2. Denies nausea vomiting or abdominal pain. Today patient is agreeable to proceed EGD and colonoscopy. Vital signs stable, maintaining O2 sats of high 90s on room air. Maintained on IV cefepime. Afebrile, WBC 3.44. Chest x-ray stable left mid and lower lung field infiltrates .Sodium 133, potassium 3.9, renal function stable. Denies chest pain, palpitations or increasing shortness of breath. Denies lightheadedness, dizziness or focal deficits. Objective - Vital Signs Vital signs: Vital Signs Temp 98.1 F 03/10/21 14:00 Pulse 96 03/10/21 16:18 Resp 18 03/10/21 16:18 BP 104/68 03/10/21 14:00 Pulse Ox 93 L 03/10/21 16:08 Intake & Output 03/09/21 03/10/21 03/10/21 18:59 06:59 18:59 Intake Total 310 960 Output Total 900 500 Balance 310 60 -500 Weight 100.5 kg Intake: Oral 960 Blood Product 310 Rc As-1 Unit 310 [id number] Output: Urine 900 500 Other: Voiding Method Toilet Toilet Diaper Diaper # Voids 5 1 # Bowel Movements 1 2 - Exam PHYSICAL EXAMINATION: GENERAL: Sitting up in bed, Alert and oriented x3, no acute distress, pale HEENT: Pupils are round and equally reacting to light. EOMI. Normocephalic, atraumatic. CARDIOVASCULAR: S1 and S2 present. Irregular, + systolic murmur, rubs, or gallops. PULMONARY: Bilateral bases diminished. ABDOMEN: Soft, nontender, nondistended ,normoactive bowel sounds. No guarding or rigidity. EXTREMITIES: Bilateral lower extremity edema,no calf tenderness. NEUROLOGICAL: Gross neurological examination did not reveal any focal deficits. SKIN: No rashes, warm and dry - Labs CBC & Chem 7: 03/10/21 05:30 03/10/21 05:30 Labs: Abnormal Lab Results - Last 24 Hours (Table) 03/09/21 03/10/21 03/10/21 Range/Units 11:23 05:30 05:30 WBC 3.44 L (4.50-10.00) X 10*3/uL RBC 2.36 L (4.40-5.60) X 10*6/uL Hgb 7.2 L (13.0-17.0) g/dL Hct 23.1 L (39.6-50.0) % MCV 97.9 H (80.0-97.0) fL MCHC 31.2 L (32.0-37.0) g/dL RDW 20.6 H (11.5-14.5) % Plt Count 102 L (140-440) X 10*3/uL Plt Count Comment DECREASED A Lymphocytes # (Manual) 0.55 L (0.90-5.00) X 10*3/uL Sodium 133 L (135-145) mmol/L Anion Gap 8.30 L (10.00-18.00) mmol/L Calcium 8.6 L (8.7-10.3) mg/dL Stool Occult Blood Positive A (Negative) Assessment and Plan Assessment: -Acute hypoxic respiratory failure secondary to acute pneumonia possibly healthcare acquired. Sputum culture positive for staph aureus,MSSA and pseudomonas aeruginosa -Acute on chronic anemia, status post 1 unit of packed RBCs -Recently hospitalized with Symptomatic Anemia secondary to acute upper GI bleed from AV malformation,s/p transfusion of 6 units of packed RBCs, s/p Repeat EGD on 02/13 reported nonbleeding AVMs, suspect chronic -probably related to underlying liver cirrhosis, portal hypertension. - Pancytopenia suspected to be related to bone marrow suppression from alcohol abuse. Patient is scheduled to follow-up with hematology. -Recent Volume overload secondary to cirrhosis, status post paracentesis -Hyponatremia appears to be hypervolemic hyponatremia from cirrhosis. -Chronic Paroxysmal atrial fibrillation, not on anticoagulation due to anemia -Hypomagnesemia: Probably due to chronic alcohol abuse, replace per protocol we will add oral magnesium daily. -Nicotine use: Counseling was provided -Pulmonary hypertension -Moderate to severe mitral regurgitation -Chronic diastolic congestive heart failure current EF is 55% -Chronic alcohol abuse with alcoholic liver cirrhosis -Hypertension -Hypothyroidism -Hypoalbuminemia -COPD Plan: Continue on current medication regime ,monitoring and symptomatic treatment. Bowel prep has been ordered and Patient has been scheduled for EGD and colonoscopy tomorrow per GI. Continue on cefepime, aggressive pulmonary toileting with incentive spirometer reinforced. Increase activity as tolerated . Close monitoring of hemoglobin, electrolytes with repeat labs ordered for a.m. The impression and plan of care has been dictated as directed. : I performed a history and examination of this patient, discussed the same with the dictator. I agree with the dictator's note ,documented as a scribe. Any additional findings or plans will be noted.
[2021-03-11] MEDS: LEVOTHYROXINE 100 MCG TAB PO SCH (06:09)
[2021-03-11] MEDS: FERROUS SULFATE 325 MG TAB PO SCH ×2 (09:20→20:17)
[2021-03-11] MEDS: NICOTINE 14MG/24HR PATCH TRANSDERM SCH (09:21)
[2021-03-11] MEDS: SYMBICORT 160-4.5 MCG INHALER INHALATION SCH ×2 (09:24→19:51)
[2021-03-11] MEDS: IPRATROPIUM-ALBUTEROL 3 ML NEB INHALATION SCH ×4 (09:24→19:51)
[2021-03-11] MEDS: CEFEPIME 2 GM in SODIUM CHLORIDE 0.9% 100 ML IVPB SCH ×5 (09:27→23:06)
[2021-03-11] MEDS: PANTOPRAZOLE 40 MG/10 ML VIAL IVP SCH ×2 (09:28→20:17)
[2021-03-11] MEDS: FUROSEMIDE 40 MG TAB PO SCH (09:29)
[2021-03-11] MEDS: SPIRONOLACTONE 25 MG TAB PO SCH (09:32)
[2021-03-11 09:36] LABS: Magnesium 1.5 mg/dL (1.5-2.4)
[2021-03-11 09:38] LABS: African American GFR (CKD) 124.6 (60.0-200.0); Anion Gap 12.2 mmol/L (10.00-18.00); BUN/Creat Ratio 17.91 Ratio (12.00-20.00); Blood Urea Nitrogen 10.1 mg/dL (9.0-27.0); Calcium 8.5 mg/dL (8.7-10.3); Carbon Dioxide 24.6 mmol/L (20.0-27.5); Non-African American GFR(CKD) 107.5 (60.0-200.0); Potassium 3.4 mmol/L (3.5-5.5)
[2021-03-11] MEDS: SODIUM CHLORIDE 0.9% 1,000 ML IV SCH ×2 (09:44→20:38)
--- NOTE | 2021-03-11 10:26 | P.PN ---
Subjective Progress Note Date: 03/11/21 Principal diagnosis: This is 65-year-old gentleman recently hospitalized with acute GI bleed, underwent EGD, enteroscopy and diagnosed with scattered nonbleeding gastric and duodenal AVMs, mild antral gastritis and multiple other medical issues. Currently admitted with acute hypoxic respiratory failure secondary to suspected healthcare acquired pneumonia. Sputum cultures reporting staph aureus, MSSA and pseudomonas aeruginosa. Maintained on cefepime and nebulized bronchodilators. Feels better today. Labs have returned with hemoglobin decreased to 5.9 with no further evidence of bleeding.WBC 2.69, platelet count 93,000. liver enzymes on admission total bilirubin 3.7 AST 21 ALT 9 alkaline phosphatase 231. Patient failed to show up for initially scheduled outpatient EGD/colonoscopy on 03/03/21. 03/10/2021 received 1 unit of packed RBCs yesterday with current hemoglobin up to 7.2. Denies nausea vomiting or abdominal pain. Today patient is agreeable to proceed EGD and colonoscopy. Vital signs stable, maintaining O2 sats of high 90s on room air. Maintained on IV cefepime. Afebrile, WBC 3.44. Chest x-ray stable left mid and lower lung field infiltrates .Sodium 133, potassium 3.9, renal function stable. Denies chest pain, palpitations or increasing shortness of breath. Denies lightheadedness, dizziness or focal deficits. 03/11/2021 NPO, Scheduled for EGD and colonoscopy today. Labs pending. VSS. Denies chest pain, palpitations, shortness of breath or lightheadedness. Denies abdominal pain. Objective - Vital Signs Vital signs: Vital Signs Temp 98.5 F 03/11/21 07:36 Pulse 80 03/11/21 09:34 Resp 16 03/11/21 09:34 BP 103/64 03/11/21 07:36 Pulse Ox 98 03/11/21 09:24 Intake & Output 03/10/21 03/11/21 03/11/21 18:59 06:59 18:59 Intake Total 1960 Output Total 500 500 Balance -500 1460 Intake: Intake, IV Titration 1000 Amount Sodium Chloride 0.9% 1, 1000 000 ml @ 75 mls/hr IV . [id number] [facility] Rx#:[id number] Oral 960 Output: Urine 500 500 Other: Voiding Method Toilet Diaper # Voids 4 4 # Bowel Movements 5 7 - Exam PHYSICAL EXAMINATION: GENERAL: Sitting up in bed, Alert and oriented x3, no acute distress HEENT: Pupils are round and equally reacting to light. EOMI. Normocephalic, atraumatic. CARDIOVASCULAR: S1 and S2 present. Irregular, + systolic murmur, rubs, or gallops. PULMONARY: Bilateral bases diminished. ABDOMEN: Soft, nontender, nondistended ,normoactive bowel sounds. No guarding or rigidity. EXTREMITIES: Bilateral lower extremity edema,no calf tenderness. NEUROLOGICAL: Gross neurological examination did not reveal any focal deficits. SKIN: No rashes, warm and dry - Labs CBC & Chem 7: 03/10/21 05:30 03/11/21 05:20 Labs: Abnormal Lab Results - Last 24 Hours (Table) 03/09/21 03/10/21 03/11/21 Range/Units 11:23 05:30 05:20 WBC 3.44 L (4.50-10.00) X 10*3/uL RBC 2.36 L (4.40-5.60) X 10*6/uL Hgb 7.2 L (13.0-17.0) g/dL Hct 23.1 L (39.6-50.0) % MCV 97.9 H (80.0-97.0) fL MCHC 31.2 L (32.0-37.0) g/dL RDW 20.6 H (11.5-14.5) % Plt Count 102 L (140-440) X 10*3/uL Plt Count Comment DECREASED A Lymphocytes # (Manual) 0.55 L (0.90-5.00) X 10*3/uL Potassium 3.4 L (3.5-5.5) mmol/L Calcium 8.5 L (8.7-10.3) mg/dL Stool Occult Blood Positive A (Negative) Assessment and Plan Assessment: -Acute hypoxic respiratory failure secondary to acute pneumonia possibly healthcare acquired. Sputum culture positive for staph aureus,MSSA and pseudomonas aeruginosa -Acute on chronic anemia, status post 2 units of packed RBCs -Recently hospitalized with Symptomatic Anemia secondary to acute upper GI bleed from AV malformation,s/p transfusion of 6 units of packed RBCs, s/p Repeat EGD on 02/13 reported nonbleeding AVMs, suspect chronic -probably related to underlying liver cirrhosis, portal hypertension. - Pancytopenia suspected to be related to bone marrow suppression from alcohol abuse. Patient is scheduled to follow-up with hematology. -Recent Volume overload secondary to cirrhosis, status post paracentesis -Hyponatremia appears to be hypervolemic hyponatremia from cirrhosis. -Chronic Paroxysmal atrial fibrillation, not on anticoagulation due to anemia -Hypomagnesemia: Probably due to chronic alcohol abuse, replace per protocol we will add oral magnesium daily. -Nicotine use: Counseling was provided -Pulmonary hypertension -Moderate to severe mitral regurgitation -Chronic diastolic congestive heart failure current EF is 55% -Chronic alcohol abuse with alcoholic liver cirrhosis -Hypertension -Hypothyroidism -Hypoalbuminemia -COPD Plan: Continue on current medication regime ,monitoring and symptomatic treatment.Scheduled for EGD and colonoscopy today with GI. Maintain cefepime. Continue aggressive pulmonary toileting with incentive spirometer reinforced. Last pending. The impression and plan of care has been dictated as directed. : I performed a history and examination of this patient, discussed the same with the dictator. I agree with the dictator's note ,documented as a scribe. Any additional findings or plans will be noted.
--- NOTE | 2021-03-11 12:42 | P.PN ---
Subjective Progress Note Date: 03/11/21 65-year-old male patient hospitalized for shortness of breath and weakness and diarrhea. He was recently inpatient for a GI bleed. The patient had complained of productive cough for approximately a week. The patient also has history of congestion heart failure and chronic atrial fibrillation. His COVID 19 testing was negative and the patient has taken his COVID 19 vaccination. Chest x-ray showed bilateral pulmonary infiltrates consistent with pneumonia. The patient had a pro calcitonin level of 0.28. Clinically the patient was improving and the patient was covered with IV cefepime. He is currently being treated for a healthcare associated pneumonia. The sputum sample that was collected on 03/06/2021 showed pseudomonas aeruginosa and staph aureus, the blood culture from 03/06/2021 showed coagulase-negative staph and his sputum was positive for MSSA and staph aureus and pseudomonas aeruginosa. Currently is on room air oxygen and a chest x-ray from yesterday showed bilateral left greater than right patchy opacities and interstitial edema, improved. 03/10/2021, the patient is being seen for a follow-up. Is currently on room air oxygen with a pulse ox of 98%. He remains on IV cefepime. He is doing well. No specific complaints. His repeat blood work shows a white cell count of 3.4 with a hemoglobin of 7.2. His platelet counts are low at 102. Normal electrolytes. Normal renal function. Sodium level is at 133. The chest x-ray that was done as a follow-up today showed improvement in the right lung findings and the patient has some persistent infiltration of the left midlung area which is essentially stable compared to the earlier chest x-ray. Clinically however, the patient is feeling better. Hemoglobin is stable and the patient received a unit of packed RBC. GI service on the case and the patient is being scheduled for endoscopy including EGD and colonoscopy. 03/11/2021, the patient is on room air oxygen. He was on room air oxygen yesterday. Meanwhile, the patient has no new complaints. Occult stool was positive and the patient is being worked up for GI bleed. The patient's hemoglobin was as low as 5.9 yesterday and the patient was given a total of 2 units of packed RBC and hemoglobin is currently up to 7.2. Repeat hemoglobin from today is still pending. Meanwhile, the patient is still being considered for EGD and colonoscopy by GI services. No active signs of bleeding for now. The patient is also receiving iron supplements. The patient is also on Protonix 40 mg by mouth twice a day. Objective - Vital Signs Vital signs: Vital Signs Temp 98.5 F 03/11/21 07:36 Pulse 80 03/11/21 09:34 Resp 16 03/11/21 09:34 BP 103/64 03/11/21 07:36 Pulse Ox 98 03/11/21 09:24 Intake & Output 03/10/21 03/11/21 03/11/21 18:59 06:59 18:59 Intake Total 1960 Output Total 500 500 Balance -500 1460 Intake: Intake, IV Titration 1000 Amount Sodium Chloride 0.9% 1, 1000 000 ml @ 75 mls/hr IV . [id number] [facility] Rx#:[id number] Oral 960 Output: Urine 500 500 Other: Voiding Method Toilet Toilet Diaper Diaper # Voids 4 4 # Bowel Movements 5 7 - Exam No acute distress, oriented 3. The patient looks very chronically ill. Room air saturation is 92%. No obvious respiratory distress or difficulty. HEENT examination is grossly unremarkable. Neck supple. Full range of motion. No adenopathy thyromegaly or neck vein distention. Cardiovascular examination reveals regular rhythm rate. S1-S2 normal. No S3 or S4. No discernible murmur noted. Heart sounds are distant. Heart rate 88 bpm. Lungs reveal bilateral scattered rhonchi. Occasional crackles appreciated. No wheezes. Breath sounds are equal bilaterally, but diminished throughout. Abdomen soft bowel sounds are heard. No masses or tenderness. Extremities are intact. No cyanosis or clubbing. Lower extremity edema is n oted. Skin reveals multiple areas of ecchymoses. Neurologic examination is brief but nonfocal. - Labs CBC & Chem 7: 03/10/21 05:30 03/11/21 05:20 Labs: Abnormal Lab Results - Last 24 Hours (Table) 03/09/21 03/11/21 Range/Units 11:23 05:20 Potassium 3.4 L (3.5-5.5) mmol/L Calcium 8.5 L (8.7-10.3) mg/dL Stool Occult Blood Positive A (Negative) Microbiology - Last 24 Hours (Table) 03/06/21 07:35 Blood Culture Gram Stain - Final Blood Blood Culture - Preliminary Staphylococcus epidermidis Coagulase Negative Staph Assessment and Plan Plan: #1. Acute hypoxic respiratory failure secondary to acute pneumonia, possibly healthcare acquired, COVID-19 PCR was negative. The sputum culture was positive for staph aureus, MSSA and pseudomonas aeruginosa. The patient is currently on IV cefepime. Oxygenation is improved and the patient is currently on room air oxygen. Chest x-ray from today is stable and the patient has a stable consolidation of the left lung. The patient remains on IV cefepime. The patient is on room air oxygen., Pulmonary status remains the same and the patient remains on room air oxygen on today's evaluation. The patient is awaiting his GI workup for GI bleed as the patient had a GI bleeding with positive Hemoccult blood and a drop in hemoglobin down to 5.9 and a serum total of 2 units of packed RBC. #2. Suspect underlying history of COPD related to extensive history of tobacco history #3. Recent hospitalization for acute gastrointestinal bleeding, patient un derwent EGD/enteroscopy with argon plasma coagulation, and was found to have scattered nonbleeding gastric and duodenal arteriovenous malformation status post argon plasma coagulation, mild antral gastritis #4. Chronic atrial fibrillation, currently not on any anticoagulation related to recent history of GI bleeding #5. Acute on chronic anemia, rule out possibility of bleeding. Patient will r eceive 1 unit of packed red blood cells today for hemoglobin of 5.9Hemoglobin is improved and the patient is being considered for colonoscopy and EGD. #6. History of alcoholism, currently in remission #7. Former smoker #8. Hypertension #9. Moderate mitral regurgitation #10. Moderate pulmonary hypertension #11. Osteoporosis #12. Hyponatremia, possibly hypervolemia Plan: Continue cefepime, the patient has pseudomonas in his lungs. Clinically stable , remains on room air oxygen incentive spirometer. Currently on room air oxygen. Overall patient is feeling better, No clear evidence of bleeding, despite the drop in hemoglobin, transfuse 2 units of packed RBC and the patient is going to have EGD and colonoscopy and the patient is scheduled to have the procedures today and the patient has received his prep Continue breathing treatments Repeat chest x-ray for tomorrow We'll continue to follow his clinical course
[2021-03-11 13:29] LABS: Basophils # (M) 0.03 X 10*3/uL (0.00-0.10); Eosinophils # (M) 0 X 10*3/uL (0.04-0.35); HCT 22.7 % (39.6-50.0); HGB 7.5 g/dL (13.0-17.0); MCH 32.8 pg (27.0-32.0); MCV 99.1 fL (80.0-97.0); Mean Platelet Volume 9.7 fL (9.5-12.2); Metamyelocytes % 1 % (0-0); Monocytes # (M) 0.16 X 10*3/uL (0.20-1.00); Myelocytes % 5 % (0-0); Neutrophils # (M) 1.76 X 10*3/uL (2.00-8.90); Neutrophils % (M) 65 %; Platelet Count 81 X 10*3/uL (140-440); RBC 2.29 X 10*6/uL (4.40-5.60); WBC 2.71 X 10*3/uL (4.50-10.00)
[2021-03-11] MEDS ORDERED: LIDOCAINE 1% INJ 10MG/ML (20 ML MDV) ONE (13:31)
[2021-03-11] MEDS ORDERED: PROPOFOL 10 MG/ML 20 ML VIAL IV ONE (13:31)
[2021-03-11] MEDS ORDERED: LACTATED RINGERS 1,000 ML IV ONE (13:37)
[2021-03-11] MEDS ORDERED: Potassium Replacement Protocol 1 EACH MISC MISCELLANE PRN ×2 (14:56→18:34)
[2021-03-11] MEDS: HYDROcodone/APAP 10-325MG 1 EACH TAB PO PRN (15:48)
[2021-03-11] MEDS: FOLIC ACID 1 MG TAB PO SCH (15:48)
[2021-03-11] MEDS: THIAMINE 100 MG TAB PO SCH (15:49)
[2021-03-11] MEDS: MAGNESIUM OXIDE 400 MG TAB PO SCH ×2 (15:49→20:17)
[2021-03-11] MEDS: POTASSIUM CHLORIDE ER 20 MEQ TAB.ER PO SCH ×4 (15:50→20:18)
[2021-03-11] MEDS: ALPRAZolam 0.5 MG TAB PO PRN (18:33)
[2021-03-11 20:36] VITALS: RESP 16
[2021-03-12] MEDS: HYDROcodone/APAP 10-325MG 1 EACH TAB PO PRN ×2 (03:14→12:09)
[2021-03-12] MEDS: LEVOTHYROXINE 100 MCG TAB PO SCH (05:37)
[2021-03-12] MEDS: POTASSIUM BICARBONATE/CIT AC 20 MEQ TABLET.EFF NG-TUBE SCH (05:37)
[2021-03-12] MEDS: THIAMINE 100 MG TAB PO SCH (07:06)
[2021-03-12] MEDS: SPIRONOLACTONE 25 MG TAB PO SCH (07:06)
[2021-03-12] MEDS: MAGNESIUM OXIDE 400 MG TAB PO SCH (07:06)
[2021-03-12] MEDS: FOLIC ACID 1 MG TAB PO SCH (07:06)
[2021-03-12] MEDS: FUROSEMIDE 40 MG TAB PO SCH (07:07)
[2021-03-12] MEDS: FERROUS SULFATE 325 MG TAB PO SCH (07:07)
[2021-03-12] MEDS: CEFEPIME 2 GM in SODIUM CHLORIDE 0.9% 100 ML IVPB SCH (07:08)
[2021-03-12] MEDS: IPRATROPIUM-ALBUTEROL 3 ML NEB INHALATION SCH ×3 (07:16→14:53)
[2021-03-12] MEDS: SYMBICORT 160-4.5 MCG INHALER INHALATION SCH (07:16)
[2021-03-12] MEDS: NICOTINE 14MG/24HR PATCH TRANSDERM SCH (07:19)
--- NOTE | 2021-03-12 07:21 | XR ---
EXAMINATION TYPE: XR chest 1V portable DATE OF EXAM: 03/12/2021 HISTORY: Shortness of breath. COMPARISON: 03/10/2021 TECHNIQUE: Single view of the chest is submitted. FINDINGS: Demonstrated are scattered senescent parenchymal change. Infiltrate left midlung zone left lower lobe persists essentially unchanged. Vague infiltrate right u pper lobe as well. The heart is stable. Hilar and mediastinal structures are within normal limits. Degenerative changes are seen of the dorsal spine. IMPRESSION: 1. Stable chest.
[2021-03-12 07:52] VITALS: BP 103/64; PULSE 82; TEMP 97.9
[2021-03-12 10:40] LABS: Anisocytosis Slight; HCT 26.1 % (39.0-53.0); HGB 8.8 gm/dL (13.0-17.5); MCH 32.7 pg (25.0-35.0); MCHC 33.8 g/dL (31.0-37.0); MCV 96.9 fL (80.0-100.0); Macrocytosis Slight; Mean Platelet Volume 9.1; Platelet Count 120 k/uL (150-450); Poikilocytosis Slight; RBC 2.69 m/uL (4.30-5.90); RDW 19.1 % (11.5-15.5); WBC 3.8 k/uL (3.8-10.6)
[2021-03-12] MEDS: PANTOPRAZOLE 40 MG/10 ML VIAL IVP SCH (12:41)
--- NOTE | 2021-03-12 12:57 | PCN ---
Date of Procedure: 03/11/21 Procedure(s) Performed: Brief history: Patient is a pleasant 65-year-old white male admitted hospital with severe symptomatic anemia and hemoglobin of 5 g/dL. It appears of PRBC transfusion. He is been having intermittent black tarry stools. He was extensively investigated in October of this year with EGD, colonoscopy and small bowel capsule ENDOSCOPY and was noted to have scattered angiectasia in the duodenum and jejunum thatwere cauterized. He had an episode of acute GI bleed during last hospitalization 2 weeks ago at which time he refused EGD colonoscopy was discharged home and was scheduled as an outpatient basisbut he failed to show up. He was readmitted to the hospital with severe symptomatic anemia and hence scheduled for an EGD and colonoscopy today Procedure performed: Esophagogastroduodenoscopy/enteroscopy Colonoscopy snare polypectomy Preoperative diagnosis: severe symptomatic anemia and intermittent GI bleed Anesthesia: MAC Procedure: After informed consent was obtained from the patient was brought into the endoscopy unit and IV sedation was administered by anesthesia under continuous monitoring. Initially upper endoscopy was done. The Olympus GF 160 video endoscope was inserted inserted into the mouth and esophagus intubated without any difficulty and was gradually advanced into the stomach and duodenum and carefully examined. The bulb and second part of the duodenum appeared normal. the scope was advanced into the proximal jejunum and appeared normal. No angiectasia seen. The scope was then withdrawn into the stomach adequately insufflated with air and upon careful examination the antrum appeared normal. were changes consistent with moderate to severe portal hypertensive gastropathy involving the body and fundus of the stomach. No gastric or esophageal varices seen. The scope was then withdrawn into the esophagus. The GE junction was located at 40 cm to the incisors. It appeared regular with no erythema erosions or ulcerations. Rest of the esophagus appeared normal. Patient tolerated the procedure well. At this time the patient continued to remain sedation. Initial digital rectal examination was normal. Olympus CF 160 video colonoscope was then inserted into the rectum and gradually advanced to the cecum without any difficulty. Careful examination was performed as the scope was gradually being withdrawn. The prep was excellent. The cecum, ascending colon, appeared normal. In the hepatic flexure there were 3 polyps measuring 2 cm and 5 mm in size all of which were removed by snare polypectomy. Rest of the transverse colon, descending colon, sigmoid colon and rectum appeared normal. Retroflexion was performed in the rectum aas internal hemorrhoidsre noted. Patient tolerated the procedure well. Impression: 1. Upper endoscopy/enteroscopy revealed moderate to severe portal hypertensive gastropathy with no active bleeding 2. Colonoscopy revealed a 2 cm, 5 mm 3 hepatic flexure polyps status post polypectomy and grade 2 internal hemorrhoids Recommendations: Findings of this examination were discussed with the patient. Diet will be advanced as tolerated. Follow with the biopsy results. Transfuse as needed. Most lightly anemia is related to follow hypertensive gastropathy, bleeding from internal hemorrhoids and anemia of chronic disease underlying cirrhosis of the liver MTDD
--- NOTE | 2021-03-12 13:48 | P.PN ---
Subjective Progress Note Date: 03/12/21 65-year-old male patient hospitalized for shortness of breath and weakness and diarrhea. He was recently inpatient for a GI bleed. The patient had complained of productive cough for approximately a week. The patient also has history of congestion heart failure and chronic atrial fibrillation. His COVID 19 testing was negative and the patient has taken his COVID 19 vaccination. Chest x-ray showed bilateral pulmonary infiltrates consistent with pneumonia. The patient had a pro calcitonin level of 0.28. Clinically the patient was improving and the patient was covered with IV cefepime. He is currently being treated for a healthcare associated pneumonia. The sputum sample that was collected on 03/06/2021 showed pseudomonas aeruginosa and staph aureus, the blood culture from 03/06/2021 showed coagulase-negative staph and his sputum was positive for MSSA and staph aureus and pseudomonas aeruginosa. Currently is on room air oxygen and a chest x-ray from yesterday showed bilateral left greater than right patchy opacities and interstitial edema, improved. 03/10/2021, the patient is being seen for a follow-up. Is currently on room air oxygen with a pulse ox of 98%. He remains on IV cefepime. He is doing well. No specific complaints. His repeat blood work shows a white cell count of 3.4 with a hemoglobin of 7.2. His platelet counts are low at 102. Normal electrolytes. Normal renal function. Sodium level is at 133. The chest x-ray that was done as a follow-up today showed improvement in the right lung findings and the patient has some persistent infiltration of the left midlung area which is essentially stable compared to the earlier chest x-ray. Clinically however, the patient is feeling better. Hemoglobin is stable and the patient received a unit of packed RBC. GI service on the case and the patient is being scheduled for endoscopy including EGD and colonoscopy. 03/11/2021, the patient is on room air oxygen. He was on room air oxygen yesterday. Meanwhile, the patient has no new complaints. Occult stool was positive and the patient is being worked up for GI bleed. The patient's hemoglobin was as low as 5.9 yesterday and the patient was given a total of 2 units of packed RBC and hemoglobin is currently up to 7.2. Repeat hemoglobin from today is still pending. Meanwhile, the patient is still being considered for EGD and colonoscopy by GI services. No active signs of bleeding for now. The patient is also receiving iron supplements. The patient is also on Protonix 40 mg by mouth twice a day. 03/12/2021, the patient remains on room air oxygen. The patient is going to be discharged home today on a course of ciprofloxacin. The follow-up chest x-ray shows stable pulmonary infiltrates and a final chest x-ray will be done on outpatient basis upon follow-up. He is doing well. He is not showing any signs of bleeding. EGD and colonoscopy has been completed. The patient has portal gastropathy and the patient also had a colonic polyps and internal hemorrhoids. GI services is consulted on the patient. Hemoglobin is stable for now. He is stable for now. He has no specific complaints. Objective - Vital Signs Vital signs: Vital Signs Temp 97.9 F 03/12/21 07:51 Pulse 82 03/12/21 08:10 Resp 16 03/12/21 08:10 BP 103/64 03/12/21 07:51 Pulse Ox 95 03/12/21 07:51 Intake & Output 03/11/21 03/12/21 03/12/21 18:59 06:59 18:59 Intake Total 0 200 Balance 0 200 Intake: IV 0 Intake, IV Titration 200 Amount Cefepime 2 gm In Sodium 200 Chloride 0.9% 100 ml @ 25 mls/hr IVPB Q8HR [facility] [place] Rx# :[id number] Other: Voiding Method Toilet Toilet Toilet Diaper Diaper Diaper # Voids 5 1 # Bowel Movements 3 - Exam No acute distress, oriented 3. The patient looks very chronically ill. Room air saturation is 92%. No obvious respiratory distress or difficulty. HEENT examination is grossly unremarkable. Neck supple. Full range of motion. No adenopathy thyromegaly or neck vein distention. Cardiovascular examination reveals regular rhythm rate. S1-S2 normal. No S3 or S4. No discernible murmur noted. Heart sounds are distant. Heart rate 88 bpm. Lungs reveal bilateral scattered rhonchi. Occasional crackles appreciated. No wheezes. Breath sounds are equal bilaterally, but diminished throughout. Abdomen soft bowel sounds are heard. No masses or tenderness. Extremities are intact. No cyanosis or clubbing. Lower extremity edema is noted. Skin reveals multiple areas of ecchymoses. Neurologic examination is brief but nonfocal. - Labs CBC & Chem 7: 03/12/21 06:32 03/12/21 06:32 Labs: Abnormal Lab Results - Last 24 Hours (Table) 03/11/21 03/12/21 Range/Units 17:42 06:32 RBC 2.69 L (4.30-5.90) m/uL Hgb 8.8 L (13.0-17.5) gm/dL Hct 26.1 L (39.0-53.0) % RDW 19.1 H (11.5-15.5) % Plt Count 120 L (150-450) k/uL Potassium 3.4 L (3.5-5.1) mmol/L Microbiology - Last 24 Hours (Table) 03/06/21 07:35 Blood Culture Gram Stain - Final Blood Blood Culture - Preliminary Staphylococcus epidermidis Coagulase Negative Staph Assessment and Plan Plan: #1. Acute hypoxic respiratory failure secondary to acute pneumonia, possibly healthcare acquired, COVID-19 PCR was negative. The sputum culture was positive for staph aureus, MSSA and pseudomonas aeruginosa. The patient is currently on IV cefepime. Clinically improved and the patient is currently on room air oxygen. #2. Suspect underlying history of COPD related to extensive history of tobacco history #3. Recent hospitalization for acute gastrointestinal bleeding, patient underwent EGD/enteroscopy with argon plasma coagulation, and repeat endoscopy showed portal gastropathy and evidence of colonic polyps and internal hemorrhoids. Hemoglobin is stable for now. #4. Chronic atrial fibrillation, currently not on any anticoagulation related to recent history of GI bleeding #5. Acute on chronic anemia, rule out possibility of bleeding. Patient will receive 1 unit of packed red blood cells today for hemoglobin of 5.9Hemoglobin is improved and the patient is being considered for colonoscopy and EGD. #6. History of alcoholism, currently in remission #7. Former smoker #8. Hypertension #9. Moderate mitral regurgitation #10. Moderate pulmonary hypertension #11. Osteoporosis #12. Hyponatremia, possibly hypervolemia Plan: The patient is going to be discharged home today on a course of ciprofloxacin. Chest x-ray showing stable pulmonary infiltrate and a follow-up chest x-ray needs to be done on outpatient basis incentive spirometer. Currently on room air oxygen. Overall patient is feeling better, No clear evidence of bleeding, despite the drop in hemoglobin, transfuse 2 units of packed RBC and the patient is going to have EGD and colonoscopy and the patient is scheduled to have the procedures today and the patient has received his prep Continue breathing treatments Repeat chest x-ray on outpatient basis
--- NOTE | 2021-03-12 14:08 | P.PN ---
Subjective Progress Note Date: 03/12/21 Principal diagnosis: Anemia 65-year-old male who was admitted and treated for pneumonia had a drop in his hemoglobin down to 5.9. Yesterday he had 1 unit of PRBC transfusion with a repeat hemoglobin today is 7.2. Cold stools not obtained. Patient is denying any abdominal pain, nausea, or vomiting. States his stool is been black but he states that he thinks is related to his iron. Yesterday was discussed with him to proceed with EGD and colonoscopy as he was scheduled for an outpatient EGD and colonoscopy on 03/03/2021 but did not show up due to not feeling well. 03/12/2021 Patient is seen and examined sitting up in bed. He states he is feeling much better. Still has a decreased appetite due to lack of taste. He denies any blood in his stool. He did undergo an EGD and colonoscopy yesterday. Upper endoscopy and enteroscopy revealed moderate to severe portal hypertensive gastropathy with no active bleeding. Colonoscopy revealed hepatic flexure polyp status post polypectomy and grade 2 internal hemorrhoids.Today's repeat hemoglobin was 7.7. Objective - Vital Signs Vital signs: Vital Signs Temp 97.9 F 03/12/21 07:51 Pulse 82 03/12/21 08:10 Resp 16 03/12/21 08:10 BP 103/64 03/12/21 07:51 Pulse Ox 95 03/12/21 07:51 Intake & Output 03/11/21 03/12/21 03/12/21 18:59 06:59 18:59 Intake Total 0 200 Balance 0 200 Intake: IV 0 Intake, IV Titration 200 Amount Cefepime 2 gm In Sodium 200 Chloride 0.9% 100 ml @ 25 mls/hr IVPB Q8HR [facility] Rx# :[id number] Other: Voiding Method Toilet Toilet Toilet Diaper Diaper Diaper # Voids 5 1 # Bowel Movements 3 - Exam General appearance: The patient is alert, oriented, appears in no acute distress. Pale. HET: Head is normocephalic and atraumatic. Conjunctiva pink. Sclera anicteric. Neck: Supple without lymphadenopathy. Abdomen: Soft, nontender, nondistended with bowel sounds. No guarding or rig idity. Extremities: Normal skin color and turgor. Bilateral lower extremity edema. Skin: No rashes, no jaundice. Pale. Neurological: No focal deficits. Alert and oriented x 3. - Labs CBC & Chem 7: 03/12/21 06:32 03/12/21 06:32 Labs: Abnormal Lab Results - Last 24 Hours (Table) 03/11/21 03/11/21 Range/Units 05:20 17:42 WBC 2.71 L (4.50-10.00) X 10*3/uL RBC 2.29 L (4.40-5.60) X 10*6/uL Hgb 7.5 L (13.0-17.0) g/dL Hct 22.7 L (39.6-50.0) % MCV 99.1 H (80.0-97.0) fL MCH 32.8 H (27.0-32.0) pg RDW 20.0 H (11.5-14.5) % Plt Count 81 L (140-440) X 10*3/uL Plt Count Comment DECREASED A Metamyelocytes % 1 H (0-0) % Myelocytes % 5 H (0-0) % Neutrophils # (Manual) 1.76 L (2.00-8.90) X 10*3/uL Lymphocytes # (Manual) 0.60 L (0.90-5.00) X 10*3/uL Monocytes # (Manual) 0.16 L (0.20-1.00) X 10*3/uL Eosinophils # (Manual) 0 L (0.04-0.35) X 10*3/uL Potassium 3.4 L (3.5-5.1) mmol/L Microbiology - Last 24 Hours (Table) 03/06/21 07:35 Blood Culture Gram Stain - Final Blood Blood Culture - Preliminary Staphylococcus epidermidis Coagulase Negative Staph Assessment and Plan (1) Anemia Narrative/Plan: 65-year-old who was admitted to the hospital with pneumonia with positive sputum of Pseudomonas aeruginosa and staph aureus. He has had multiple admissions in the past for anemia and GI bleeds. He has had multiple endoscopies with his last one being 02/13/[address] Power which he underwent a EGD with push enteroscopy significant for scattered nonbleeding gastric AVMsrated with argon plasma. At this admission he was noted to have hemoglobin of 7.2 with a drop down to 5.9 he was given 1 unit of PRBC transfusion with a repeat hemoglobin is 7.7. Again today he had a drop in his hemoglobin of 5.9 therefore gastroenterology was consulted. Patient denies any blood in his stool denies any hematemesis. States he does have dark stool but he is been on oral iron. He is currently getting 1 unit PRBC transfusion. He denies abdominal pain, nausea, or vomiting. Patient was scheduled to have an outpatient EGD and colonoscopy on 1123 however he states he was not feeling well enough and did not make the appointment. At this time the patient continues to state that he is not feeling well enough to undergo any endoscopic evaluation and just wishes to receive blood at this time. This seems to be reasonable as he currently has underlying pneumonia. We'll continue to monitor with serial CBC and transfuse as needed for hemoglobin under 7. Repeat hemoglobin today 7.2. Patient continues to deny any alta evidence of GI bleed however he is agreeable to proceed with EGD and colonoscopy. Current Visit: No Status: Acute Code(s): D64.9 - ANEMIA, UNSPECIFIED SNOMED Code(s): 716642126 (2) GI AVM (gastrointestinal arteriovenous vascular malformation) Narrative/Plan: The patient has a history of nonbleeding AVM found on last EGD with push enteroscopy treated with argon plasma on 02/13/2021 Current Visit: No Status: Acute Code(s): K55.20 - ANGIODYSPLASIA OF COLON WITHOUT HEMORRHAGE SNOMED Code(s): 812133938 (3) Hypoxia Current Visit: Yes Status: Acute Code(s): R09.02 - HYPOXEMIA SNOMED Code(s): 679522045 (4) Pneumonia Current Visit: Yes Status: Acute Code(s): J18.9 - PNEUMONIA, UNSPECIFIED ORGANISM SNOMED Code(s): 988967845 (5) Pancytopenia Current Visit: Yes Status: Chronic Priority: Medium Code(s): D61.818 - OTHER PANCYTOPENIA SNOMED Code(s): 149564517 (6) Alcohol abuse Current Visit: No Status: Acute Code(s): F10.10 - ALCOHOL ABUSE, UNCOMPLICATED SNOMED Code(s): 72750604 Plan: 1. Continue symptomatic and supportive care 2. Daily CBC, transfuse for hemoglobin less than 7 3. Diet as tolerated 4. Patient underwent upper and lower endoscopy 5. No further endoscopic workup planned 6. close outpatient monitoring of H&H, outpatient transfusions as needed per PCP Thank you for this consultation, patient is cleared for discharge per gastroenterology. Dr. Anderson Power I agree with the dictator's note, documented as a scribe by Niki Davis.
--- NOTE | 2021-03-12 14:16 | P.DS ---
Providers Date of admission: 03/06/21 09:19 Expected date of discharge: 03/12/21 Attending physician: Cosmo Light MD Consults: 03/06/21 09:34 Consult Physician Routine Consulting Provider: Yehuda Cody Consult Reason/Comments: Hypoxia/PNA Do you want consulting provider notified?: Yes 03/09/21 12:39 Consult Physician Routine Consulting Provider: Catherine Power Consult Reason/Comments: Hgb drops post transfusion. Do you want consulting provider notified?: Yes Primary care physician: Cosmo Light MD Hospital Course: Final Diagnoses: -Acute hypoxic respiratory failure secondary to acute pneumonia possibly healthcare acquired. Sputum culture positive for staph aureus,MSSA and pseudomonas aeruginosa -Acute on chronic anemia, status post 2 units of packed RBCs -Recently hospitalized with Symptomatic Anemia secondary to acute upper GI bleed from AV malformation,s/p transfusion of 6 units of packed RBCs, s/p Repeat EGD on 02/13 reported nonbleeding AVMs, suspect chronic -probably related to underlying liver cirrhosis, portal hypertension. EGD/colonoscopy reporting moderate to severe portal hypertensive gastropathy with no active bleeding, 2 cm, 5 mm 3 hepatic flexure polyps status post polypectomy, grade 2 internal hemorrhoids; GI suspects light anemia related to hypertensive gastropathy, bleeding from internal hemorrhoids and anemia of chronic disease with underlying cirrhosis of the liver. - Pancytopenia suspected to be related to bone marrow suppression from alcohol abuse. Patient is scheduled to follow-up with hematology. -Recent Volume overload secondary to cirrhosis, status post paracentesis -Hyponatremia appears to be hypervolemic hyponatremia from cirrhosis. -Chronic Paroxysmal atrial fibrillation, not on anticoagulation due to anemia -Hypomagnesemia: Probably due to chronic alcohol abuse, replace per protocol we will add oral magnesium daily. -Nicotine use: Counseling was provided -Pulmonary hypertension -Moderate to severe mitral regurgitation -Chronic diastolic congestive heart failure current EF is 55% -Chronic alcohol abuse with alcoholic liver cirrhosis -Hypertension -Hypothyroidism -Hypoalbuminemia -COPD Hospital course:This is 65-year-old gentleman recently hospitalized with acute GI bleed, underwent EGD, enteroscopy and diagnosed with scattered nonbleeding gastric and duodenal AVMs, mild antral gastritis and multiple other medical issues. Currently admitted with acute hypoxic respiratory failure secondary to suspected healthcare acquired pneumonia. Sputum cultures reporting staph aureus, MSSA and pseudomonas aeruginosa. Maintained on cefepime and nebulized bronchodilators. Feels better today. Labs have returned with hemoglobin decreased to 5.9 with no further evidence of bleeding.WBC 2.69, platelet count 93,000. liver enzymes on admission total bilirubin 3.7 AST 21 ALT 9 alkaline phosphatase 231. Patient failed to show up for initially scheduled outpatient EGD/colonoscopy on 03/03/21. 03/10/2021 received 1 unit of packed RBCs yesterday with current hemoglobin up to 7.2. Denies nausea vomiting or abdominal pain. Today patient is agreeable to proceed EGD and colonoscopy. Vital signs stable, maintaining O2 sats of high 90s on room air. Maintained on IV cefepime. Afebrile, WBC 3.44. Chest x-ray stable left mid and lower lung field infiltrates .Sodium 133, potassium 3.9, re nal function stable. Denies chest pain, palpitations or increasing shortness of breath. Denies lightheadedness, dizziness or focal deficits. 03/11/2021 NPO, Scheduled for EGD and colonoscopy today. Labs pending. VSS. Denies chest pain, palpitations, shortness of breath or lightheadedness. Denies abdominal pain. Completed EGD and colonoscopy reporting moderate to severe portal hypertensive g astropathy with no active bleeding, 2 cm, 5 mm 3 hepatic flexure polyps status post polypectomy, grade 2 internal hemorrhoids; recommending diet to be advanced. Cleared by GI for discharge with no interval recommended at this time. Per GI suspect light anemia related to hypertensive gastropathy, bleeding from internal hemorrhoids and anemia of chronic disease with underlying cirrhosis of the liver. Cleared by pulmonary for discharge, on Cipro. Patient will be discharged Home today in a stable condition with guarded prognosis with routine monitoring of CBC and outpatient transfusions as needed. The impression and plan of care has been dictated as directed. : I performed a history and examination of this patient, discussed the same with the dictator. I agree with the dictator's note ,documented as a scribe. Any additional findings or plans will be noted. Patient Condition at Discharge: Stable Plan - Discharge Summary New Discharge Prescriptions: New Budesonide-Formot 160-4.5 Mcg [Symbicort 160-4.5 Mcg Inhaler] 2 puff INHALATION RT-BID #1 inh Ciprofloxacin HCl [Cipro] 500 mg PO BID 7 Days #14 tab Continue HYDROcodone/APAP 10-325MG [[place] 10-325] 1 tab PO QID PRN PRN Reason: Pain Furosemide [Lasix] 40 mg PO DAILY Folic Acid 1 mg PO DAILY tab QUEtiapine [SEROquel] 50 mg PO HS #0 Thiamine [Vitamin B-1] 50 mg PO DAILY Levothyroxine Sodium [Synthroid] 100 mcg PO DAILY Omeprazole 40 mg PO DAILY Ferrous Sulfate [Feosol] 325 mg PO BID #60 tab Albuterol Inhaler [Ventolin Hfa Inhaler] 2 puff INHALATION RT-QID PRN PRN Reason: Shortness Of Breath Nadolol [Corgard] 40 mg PO DAILY Nicotine 14Mg/24Hr Patch [Habitrol] 1 patch TRANSDERM DAILY patch Magnesium Oxide [Mag-Ox] 400 mg PO BID #0 tab Spironolactone 100 mg PO DAILY Discharge Medication List HYDROcodone/APAP 10-325MG [[place] 10-325] 1 tab PO QID PRN 07/05/17 [History] Furosemide [Lasix] 40 mg PO DAILY 08/12/20 [History] Levothyroxine Sodium [Synthroid] 100 mcg PO DAILY 10/14/20 [History] Omeprazole 40 mg PO DAILY 10/14/20 [History] Ferrous Sulfate [Feosol] 325 mg PO BID #60 tab 10/18/20 [Rx] Albuterol Inhaler [Ventolin Hfa Inhaler] 2 puff INHALATION RT-QID PRN 02/10/21 [History] Nadolol [Corgard] 40 mg PO DAILY 02/10/21 [History] Folic Acid 1 mg PO DAILY tab 02/18/21 [Rx] Magnesium Oxide [Mag-Ox] 400 mg PO BID #0 tab 02/18/21 [Rx] Nicotine 14Mg/24Hr Patch [Habitrol] 1 patch TRANSDERM DAILY patch 02/18/21 [Rx] QUEtiapine [SEROquel] 50 mg PO HS #0 02/18/21 [Rx] Spironolactone 100 mg PO DAILY 03/06/21 [History] Thiamine [Vitamin B-1] 50 mg PO DAILY 03/06/21 [History] Budesonide-Formot 160-4.5 Mcg [Symbicort 160-4.5 Mcg Inhaler] 2 puff INHALATION RT-BID #1 inh 03/12/21 [Rx] Ciprofloxacin HCl [Cipro] 500 mg PO BID 7 Days #14 tab 03/12/21 [Rx] Follow up Appointment(s)/Referral(s): Cosmo Light MD [Primary Care Provider] - 03/17/21 4:30 pm Catherine Power MD [STAFF PHYSICIAN] - As Needed Yehuda Cody DO [Doctor of Osteopathic Medicine] - 04/02/21 2:00 pm [facility], [NON-STAFF] - 1-2 Days Patient Instructions/Handouts: Viral Pneumonia (DC), Hypoxia (ED) Activity/Diet/Wound Care/Special Instructions: Antibiotics as per pulmonary. Pending final DC recommendations and clearance per pulmonary and GI.
[2021-03-12 14:34] VITALS: BMI 26.2
== END 2021-03-12 13:50 | disposition home health service (06) | DRG 177 ==
LOC: EC 07:09 → 4SSUR 09:19
PROVIDERS: ADMIT Family Medicine; ATTEND Family Medicine
PROC: 30233N1 Transfusion of Nonautologous Red Blood Cells into Peripheral Vein, Percutaneous Approach (ICD-10-PCS; 2021-03-07)
PROC: 05HB33Z Insertion of Infusion Device into Right Basilic Vein, Percutaneous Approach (ICD-10-PCS; 2021-03-10)
PROC: 0DJ08ZZ Inspection of Upper Intestinal Tract, Via Natural or Artificial Opening Endoscopic (ICD-10-PCS; principal; 2021-03-11 12:45)
PROC: 0DBL8ZZ Excision of Transverse Colon, Via Natural or Artificial Opening Endoscopic (ICD-10-PCS; 2021-03-11 12:45)
DX: J15.211 Pneumonia due to Methicillin susceptible Staphylococcus aureus (principal); J96.01 Acute respiratory failure with hypoxia; K55.21 Angiodysplasia of colon with hemorrhage; D61.818 Other pancytopenia; E87.1 Hypo-osmolality and hyponatremia; I50.32 Chronic diastolic (congestive) heart failure; J44.0 Chronic obstructive pulmonary disease with (acute) lower respiratory infection; K76.6 Portal hypertension; D62 Acute posthemorrhagic anemia; B96.5 Pseudomonas (aeruginosa) (mallei) (pseudomallei) as the cause of diseases classified elsewhere; E03.9 Hypothyroidism, unspecified; E83.42 Hypomagnesemia; E87.6 Hypokalemia; E88.09 Other disorders of plasma-protein metabolism, not elsewhere classified; F10.21 Alcohol dependence, in remission; F41.9 Anxiety disorder, unspecified; I25.10 Atherosclerotic heart disease of native coronary artery without angina pectoris; I27.20 Pulmonary hypertension, unspecified; I11.0 Hypertensive heart disease with heart failure; I34.0 Nonrheumatic mitral (valve) insufficiency; I48.0 Paroxysmal atrial fibrillation; K29.70 Gastritis, unspecified, without bleeding; K55.20 Angiodysplasia of colon without hemorrhage; K63.5 Polyp of colon; Z20.822 Contact with and (suspected) exposure to COVID-19; K64.8 Other hemorrhoids; K70.30 Alcoholic cirrhosis of liver without ascites; M81.0 Age-related osteoporosis without current pathological fracture; Q27.9 Congenital malformation of peripheral vascular system, unspecified; Y95 Nosocomial condition; M19.90 Unspecified osteoarthritis, unspecified site; D63.8 Anemia in other chronic diseases classified elsewhere; Z72.0 Tobacco use; Z71.6 Tobacco abuse counseling; Z79.890 Hormone replacement therapy; Z79.899 Other long term (current) drug therapy; Z82.49 Family history of ischemic heart disease and other diseases of the circulatory system
CPT/HCPCS: 36410; 36415; 44360; 45385; 71045; 71046; 76937; 80048; 80053; 82272; 83605; 83735; 83880; 84132; 84145; 84484; 85025; 85027; 85610; 85730; 86738; 86850; 86900; 86901; 86920; 87040; 87070; 87077; 87186; 87205; 87449; 87635; 88305; 93005; 94640; 94760; 96365; 96366; 96367; 96368; 96375; 99291

== ENCOUNTER 2021-06-25 03:06 | Observation (INO) | payer MEDICARE ==
[2021-06-25] MEDS ORDERED: IPRATROPIUM-ALBUTEROL 3 ML NEB INHALATION STA (03:12)
[2021-06-25] MEDS ORDERED: SODIUM CHLORIDE 0.9% 1,000 ML IV STA (03:12)
[2021-06-25] MEDS ORDERED: ONDANSETRON 4 MG/2 ML VIAL IVP PRN (03:17)
[2021-06-25] MEDS ORDERED: ONDANSETRON 4 MG/2 ML VIAL IVP STA (03:17)
--- NOTE | 2021-06-25 03:27 | ED ---
SOB HPI - General Chief Complaint: Shortness of Breath Stated Complaint: NEO, Abdominal Pain Time Seen by Provider: 06/25/21 03:11 Source: EMS Mode of arrival: EMS - Related Data Home Medications Medication Instructions Recorded Confirmed HYDROcodone/APAP 10-325MG [[place] 1 tab PO QID PRN 07/05/17 03/06/21 10-325] Furosemide [Lasix] 40 mg PO DAILY 08/12/20 03/06/21 Levothyroxine Sodium [Synthroid] 100 mcg PO DAILY 10/14/20 03/06/21 Omeprazole 40 mg PO DAILY 10/14/20 03/06/21 Albuterol Inhaler [Ventolin Hfa 2 puff INHALATION RT-QID PRN 02/10/21 03/06/21 Inhaler] Nadolol [Corgard] 40 mg PO DAILY 02/10/21 03/06/21 Spironolactone 100 mg PO DAILY 03/06/21 03/06/21 Thiamine [Vitamin B-1] 50 mg PO DAILY 03/06/21 03/06/21 Previous Rx's Medication Instructions Recorded Ferrous Sulfate [Feosol] 325 mg PO BID #60 tab 10/18/20 Folic Acid 1 mg PO DAILY tab 02/18/21 Magnesium Oxide [Mag-Ox] 400 mg PO BID #0 tab 02/18/21 Nicotine 14Mg/24Hr Patch [Habitrol] 1 patch TRANSDERM DAILY patch 02/18/21 QUEtiapine [SEROquel] 50 mg PO HS #0 02/18/21 Budesonide-Formot 160-4.5 Mcg 2 puff INHALATION RT-BID #1 inh 03/12/21 [Symbicort 160-4.5 Mcg Inhaler] Ciprofloxacin HCl [Cipro] 500 mg PO BID 7 Days #14 tab 03/12/21 Allergies Allergy/AdvReac Type Severity Reaction Status Date / Time cholesterol meds AdvReac See Uncoded 06/25/21 03:18 comments Review of Systems ROS Statement: Those systems with pertinent positive or pertinent negative responses have been documented in the HPI. ROS Other: All systems not noted in ROS Statement are negative. Past Medical History Past Medical History: Atrial Fibrillation, Heart Failure, Hypertension, Osteoarthritis (OA), Thyroid Disorder Additional Past Medical History / Comment(s): having dk colored stools, anemia,received 1rst dose of Moderna vaccine,Had upper respiratory infection May 2020 tx with antibiotics, had negative covid test, chronic pain low back, spinal stenosis, past Dimas's palsy. History of Any Multi-Drug Resistant Organisms: None Reported Past Surgical History: Hernia Repair Additional Past Surgical History / Comment(s): CARROLL,Abdominal hernia repair, R thigh fatty tumor removed, colonoscopies, epidural injections low back. Patient had two molars removed about 5 weeks ago. Past Anesthesia/Blood Transfusion Reactions: No Reported Reaction Past Psychological History: Anxiety Smoking Status: Former smoker Past Alcohol Use History: Occasional Past Drug Use History: None Reported - Past Family History Father Family Medical History: Hypertension Additional Family Medical History / Comment(s): heart valve replacements. Course Vital Signs 06/25/21 03:09 Temperature 97.4 F L Pulse Rate 80 Respiratory 22 Rate Blood Pressure 98/84 O2 Sat by Pulse 95 Oximetry Medical Decision Making - Lab Data Result diagrams: 06/25/21 03:23 06/25/21 03:23 Lab Results 06/25/21 06/25/21 06/25/21 Range/Units 03:23 03:23 03:23 WBC 4.9 (3.8-10.6) k/uL RBC 2.81 L (4.30-5.90) m/uL Hgb 9.9 L (13.0-17.5) gm/dL Hct 30.9 L (39.0-53.0) % MCV 109.9 H (80.0-100.0) fL MCH 35.2 H (25.0-35.0) pg MCHC 32.0 (31.0-37.0) g/dL RDW 17.0 H (11.5-15.5) % Plt Count 221 (150-450) k/uL MPV 7.8 Neutrophils % (Manual) 46 % Band Neuts % (Manual) 15 % Lymphocytes % (Manual) 20 % Monocytes % (Manual) 13 % Eosinophils % (Manual) 3 % Metamyelocytes % 3 % Myelocytes % 1 % Neutrophils # (Manual) 2.90 (1.3-7.7) k/uL Lymphocytes # (Manual) 0.98 L (1.0-4.8) k/uL Monocytes # (Manual) 0.64 (0-1.0) k/uL Eosinophils # (Manual) 0.15 (0-0.7) k/uL Metamyelocytes # (Man) 0.15 H (0) k/uL Myelocytes # (Manual) 0.05 H (0) k/uL Nucleated RBCs 0 (0-0) /100 WBC Manual Slide Review Performed Hypochromasia Slight Poikilocytosis Slight Anisocytosis Slight Macrocytosis Marked A PT 12.1 H (9.0-12.0) sec INR 1.1 (<1.2) APTT 27.4 (22.0-30.0) sec Sodium 132 L (137-145) mmol/L Potassium 4.1 (3.5-5.1) mmol/L Chloride 97 L (98-107) mmol/L Carbon Dioxide 29 (22-30) mmol/L Anion Gap 6 mmol/L BUN 15 (9-20) mg/dL Creatinine 0.82 (0.66-1.25) mg/dL Est GFR (CKD-EPI)AfAm >90 (>60 ml/min/1.73 sqM) Est GFR (CKD-EPI)NonAf >90 (>60 ml/min/1.73 sqM) Glucose 114 H (74-99) mg/dL Plasma Lactic Acid Quinn (0.7-2.0) mmol/L Calcium 8.0 L (8.4-10.2) mg/dL Magnesium 1.3 L (1.6-2.3) mg/dL Total Bilirubin 2.6 H (0.2-1.3) mg/dL AST 47 (17-59) U/L ALT 12 (4-49) U/L Alkaline Phosphatase 580 H (38-126) U/L Troponin I (0.000-0.034) ng/mL NT-Pro-B Natriuret Pep pg/mL Total Protein 5.4 L (6.3-8.2) g/dL Albumin 2.8 L (3.5-5.0) g/dL 06/25/21 06/25/21 06/25/21 Range/Units 03:23 03:23 03:23 WBC (3.8-10.6) k/uL RBC (4.30-5.90) m/uL Hgb (13.0-17.5) gm/dL Hct (39.0-53.0) % MCV (80.0-100.0) fL MCH (25.0-35.0) pg MCHC (31.0-37.0) g/dL RDW (11.5-15.5) % Plt Count (150-450) k/uL MPV Neutrophils % (Manual) % Band Neuts % (Manual) % Lymphocytes % (Manual) % Monocytes % (Manual) % Eosinophils % (Manual) % Metamyelocytes % % Myelocytes % % Neutrophils # (Manual) (1.3-7.7) k/uL Lymphocytes # (Manual) (1.0-4.8) k/uL Monocytes # (Manual) (0-1.0) k/uL Eosinophils # (Manual) (0-0.7) k/uL Metamyelocytes # (Man) (0) k/uL Myelocytes # (Manual) (0) k/uL Nucleated RBCs (0-0) /100 WBC Manual Slide Review Hypochromasia Poikilocytosis Anisocytosis Macrocytosis PT (9.0-12.0) sec INR (<1.2) APTT (22.0-30.0) sec Sodium (137-145) mmol/L Potassium (3.5-5.1) mmol/L Chloride (98-107) mmol/L Carbon Dioxide (22-30) mmol/L Anion Gap mmol/L BUN (9-20) mg/dL Creatinine (0.66-1.25) mg/dL Est GFR (CKD-EPI)AfAm (>60 ml/min/1.73 sqM) Est GFR (CKD-EPI)NonAf (>60 ml/min/1.73 sqM) Glucose (74-99) mg/dL Plasma Lactic Acid Quinn 1.8 (0.7-2.0) mmol/L Calcium (8.4-10.2) mg/dL Magnesium (1.6-2.3) mg/dL Total Bilirubin (0.2-1.3) mg/dL AST (17-59) U/L ALT (4-49) U/L Alkaline Phosphatase (38-126) U/L Troponin I <0.012 (0.000-0.034) ng/mL NT-Pro-B Natriuret Pep 8080 pg/mL Total Protein (6.3-8.2) g/dL Albumin (3.5-5.0) g/dL - EKG Data -: EKG Interpreted by Me (EKG is A. fib with RVR 118 QRS 92 QTC 376) Disposition Clinical Impression: Ascites, Abdominal pain, Dyspnea Disposition: ADMITTED IP TO THIS HOSP Condition: Fair Is patient prescribed a controlled substance at d/c from ED?: No
[2021-06-25 03:35] LABS: Anisocytosis Slight; HCT 30.9 % (39.0-53.0); HGB 9.9 gm/dL (13.0-17.5); Hypochromasia Slight; MCH 35.2 pg (25.0-35.0); MCV 109.9 fL (80.0-100.0); Macrocytosis Marked; Mean Platelet Volume 7.8; Platelet Count 221 k/uL (150-450); Poikilocytosis Slight; RBC 2.81 m/uL (4.30-5.90); WBC 4.9 k/uL (3.8-10.6)
[2021-06-25 03:45] LABS: INR 1.1 (<1.2); Partial Thromboplastin Time 27.4 sec (22.0-30.0); Prothrombin Time 12.1 sec (9.0-12.0)
--- NOTE | 2021-06-25 03:49 | XR ---
EXAMINATION TYPE: XR chest 1V portable DATE OF EXAM: 06/25/2021 COMPARISON: 03/12/2021 HISTORY: Short of breath TECHNIQUE: 2 views FINDINGS: There is some mild pulmonary interstitial edema. Heart is enlarged. There are chest leads. IMPRESSION: Mild pulmonary interstitial edema that could be acute mild heart failure and is increased compared to last exam.
[2021-06-25 03:50] LABS: ALT 12 U/L (4-49); AST 47 U/L (17-59); African American GFR (CKD) >90 (>60 ml/min/1.73 sqM); Albumin 2.8 g/dL (3.5-5.0); Alkaline Phosphatase 580 U/L (38-126); Anion Gap 6 mmol/L; Blood Urea Nitrogen 15 mg/dL (9-20); Carbon Dioxide 29 mmol/L (22-30); Chloride 97 mmol/L (98-107); Glucose 114 mg/dL (74-99); Magnesium 1.3 mg/dL (1.6-2.3); Non-African American GFR(CKD) >90 (>60 ml/min/1.73 sqM); Potassium 4.1 mmol/L (3.5-5.1); Sodium 132 mmol/L (137-145); Total Bilirubin 2.6 mg/dL (0.2-1.3); Total Protein 5.4 g/dL (6.3-8.2)
[2021-06-25 03:58] LABS: Band Neutrophils % 15 %; Eosinophils # (M) 0.15 k/uL (0-0.7); Lymphocytes # (M) 0.98 k/uL (1.0-4.8); Metamyelocytes # (M) 0.15 k/uL (0); Metamyelocytes % 3 %; Monocytes # (M) 0.64 k/uL (0-1.0); Myelocytes # (M) 0.05 k/uL (0); Myelocytes % 1 %; Neutrophils % (M) 46 %; Nucleated Red Blood Cells 0 /100 WBC (0-0); Total Cells Counted 200
[2021-06-25] MEDS ORDERED: MORPHINE SULFATE 4 MG/ML SYRINGE IV PRN (04:16)
[2021-06-25] MEDS ORDERED: LORazepam 2 MG/ML INJ IV PRN (04:16)
[2021-06-25] MEDS ORDERED: NALOXONE 0.4 MG/ML 1 ML VIAL IV PRN (04:16)
[2021-06-25] MEDS ORDERED: SODIUM CHLORIDE 0.9% 500 ML 500 ML IV ONE (06:09)
[2021-06-25] MEDS ORDERED: SODIUM CHLORIDE 0.9% 1,000 ML IV ONE (06:09)
[2021-06-25] MEDS ORDERED: fentaNYL (PF) 50 MCG/ML 2 ML AMP IV STA (06:09)
[2021-06-25] MEDS: MAGNESIUM SULFATE-D5W PMX 1 GM in DEXTROSE/WATER 1 100ML.BAG IVPB SCH ×2 (06:26→07:49)
[2021-06-25 07:21] LABS: Alcohol <10 mg/dL; Lipase 73 U/L (23-300)
--- NOTE | 2021-06-25 09:06 | US ---
EXAMINATION TYPE: US abdomen limited DATE OF EXAM: 06/25/2021 COMPARISON: NONE CLINICAL HISTORY: please assess for fluid pocket. STAT exam done through the ER; exam limitations due to acute trauma status. All four abdominal quad rants scanned to assess for fluid post trauma. This study is a focused, limited study. This is not a FAST scan as it does not meet the established AIUM guidelines as such. A trauma ultrasound provides a picture of a patient?s condition at one moment in time. It never elim inates the possibility of injury or fluid collections that are below the detectable threshold of an u ltrasound exam. If negative, alternate imaging may be clinically warranted. Fluid seen all four quadrants largest pocket seen in RLQ IMPRESSION: Fluid seen all four quadrants largest pocket seen in RLQ
[2021-06-25] MEDS: PANTOPRAZOLE 40 MG/10 ML VIAL IV SCH (09:12)
[2021-06-25] MEDS ORDERED: MIDODRINE 5 MG TAB PO ONE (09:30)
[2021-06-25] MEDS: ALBUMIN HUMAN 25% 50 ML in EMPTY BAG 1 BAG IVPB SCH ×4 (10:36→12:16)
--- NOTE | 2021-06-25 12:56 | US ---
EXAMINATION TYPE: US paracentesis abd w/image DATE OF EXAM: 06/25/2021 COMPARISON: NONE HISTORY: Ascites. PROCEDURE: Maximal barrier technique was utilized. The skin overlying a suitable pocket of fluid was localized with ultrasound and the overlying skin was prepped and draped. Ultrasound was utilized with sterile technique. Lidocaine was used for local anesthesia and a skin salvador made with a scalpel. Catheter was advanced under direct ultrasound guidance into a suitable pocket of fluid and approximately 12.1 lite rs of serous fluid were removed. Catheter was withdrawn and hemostasis achieved. There is no immedi ate complication; the patient is discharged in stable condition. IMPRESSION: STATUS POST ULTRASOUND GUIDED PARACENTESIS FOR PALLIATION OF ASCITES. THIS PROCEDURE WA S PERFORMED BY THE UNDERSIGNED.
[2021-06-25] MEDS ORDERED: ALBUMIN HUMAN 25% 50 ML in EMPTY BAG 1 BAG IVPB SCH (13:30)
--- NOTE | 2021-06-25 14:26 | P.CONS ---
History of Present Illness - Reason for Consult Consult date: 06/25/21 Ascites Requesting physician: Cosmo Light - Chief Complaint shortness of breath, abdominal pain - History of Present Illness This 65-year-old male who presented to the hospital with shortness of breath and abdominal discomfort. He has a past medical history including atrial fibrillation, heart failure, hypertension, alcohol dependence and thyroid disorder he has been seen in the past by gastroenterology for anemia and has undergone multiple endoscopies. Patient has a history of alcoholic cirrhosis and has undergone paracentesis in the past. He takes Lasix 40 mg daily and Aldactone 100 mg daily and states he is compliant with his medication. He states he has been having increased distention in his abdomen. He states that he fell about 2 weeks ago and has been progressively getting weaker. He states he was supposed to follow-up with Dr. Power but he had to cancel his appointment to to his weakness. On admission he was noted to have a significant amount of ascites. He underwent paracentesis at 12.1 L removed. He did not get albumin pre-and post paracentesis. He had a chest x-ray that showed mild pulmonary interstitial edema that could be acute, mild heart failure which is increased compared to last exam. Labs WBC 4.9 hemoglobin 9.9 hematocrit 30 platelet count 221,000 INR 1.1 BUN 15 creatinine 0.8 total bilirubin 2.6 AST 47 and T12 alkaline phosphatase 580, lipase 73 serum alcohol level less than 10 Review of Systems REVIEW OF SYSTEMS: CARDIOPULMONARY: No chest pain. Shortness of breath, especially with exertion. Gastrointestinal: Abdominal distention and discomfort. No nausea or vomiting. No hematemesis, coffee-ground emesis. No rectal bleeding, or melena. GENITOURINARY: No dysuria or hematuria. MUSCULOSKELETAL: Reports normal range of motion., Joint pain. SKIN: No rashes. No jaundice. ENDOCRINE: No chills, fevers. No excessive weight gain or loss. No polydipsia or polyuria. PSYCHIATRIC: Unremarkable. NEUROLOGY: No change in mental status. Denies dizziness, headache. ENT: Vision unremarkable. CONSTITUTIONAL: No recent weight loss. No fever, chills, night sweats. Past Medical History Past Medical History: Atrial Fibrillation, Heart Failure, COPD, GI Bleed, Hypertension, Osteoarthritis (OA), Pneumonia, Thyroid Disorder Additional Past Medical History / Comment(s): ETOH abuse, pancytopenia, anemia with transfusions, liver cirrhosis, portal hypertension, ascities/paracentesises, upper GI bleed, AV malformations, duodenal/jejunal ectasia, gastropathy, hemorrhoids, pollyps, paroxysmal Afib, moderate to severe mitral regurgitation, chronic diastolic CHF, vertigo, past Dimas's palsy, chronic low back pain/spinal stenosis, hypothyroid. History of Any Multi-Drug Resistant Organisms: None Reported Past Surgical History: Hernia Repair Additional Past Surgical History / Comment(s): Paracentesises, CARROLL/cardioversion, EGDs, colonoscopies/polypectomy, SB enteroscopy, R thigh fatty tumor removed, epidural low back injections, abdominal hernia repair. Past Anesthesia/Blood Transfusion Reactions: No Reported Reaction Smoking Status: Former smoker - Past Family History Father Family Medical History: Hypertension Additional Family Medical History / Comment(s): heart valve replacements. Medications and Allergies Home Medications Medication Instructions Recorded Confirmed Type HYDROcodone/APAP 10-325MG [[place] 1 tab PO QID PRN 07/05/17 06/25/21 History 10-325] Furosemide [Lasix] 40 mg PO DAILY 08/12/20 06/25/21 History Levothyroxine Sodium [Synthroid] 100 mcg PO DAILY 10/14/20 06/25/21 History Omeprazole 40 mg PO DAILY 10/14/20 06/25/21 History Ferrous Sulfate [Feosol] 325 mg PO BID #60 tab 10/18/20 06/25/21 Rx Albuterol Inhaler [Ventolin Hfa 2 puff INHALATION RT-QID PRN 02/10/21 06/25/21 History Inhaler] Nadolol [Corgard] 40 mg PO DAILY 02/10/21 06/25/21 History Folic Acid 1 mg PO DAILY tab 02/18/21 06/25/21 Rx Magnesium Oxide [Mag-Ox] 400 mg PO BID #0 tab 02/18/21 06/25/21 Rx Spironolactone 100 mg PO DAILY 03/06/21 06/25/21 History Thiamine [Vitamin B-1] 50 mg PO DAILY 03/06/21 06/25/21 History Budesonide-Formot 160-4.5 Mcg 2 puff INHALATION RT-BID #1 inh 03/12/21 06/25/21 Rx [Symbicort 160-4.5 Mcg Inhaler] Diclofenac Sodium Gel [Voltaren 4 gm TOPICAL QID PRN 06/25/21 06/25/21 History Gel] Potassium Chloride [Potassium 10 meq PO BID 06/25/21 06/25/21 History Chloride ER] QUEtiapine [SEROquel] 50 - 100 mg PO HS 06/25/21 06/25/21 History Sennosides/Docusate Sodium [[place]enna 1 tab PO DAILY 06/25/21 06/25/21 History Plus 8.6-50 mg Tablet] Allergies Allergy/AdvReac Type Severity Reaction Status Date / Time cholesterol meds AdvReac See Uncoded 06/25/21 08:24 comments Physical Exam Vitals: Vital Signs Temp Pulse Pulse Resp BP BP Pulse Ox 06/25/21 12:35 101 H 18 98/50 06/25/21 12:10 107 H 20 84/65 06/25/21 12:05 99 20 87/68 06/25/21 12:00 98 20 94/72 93 L 06/25/21 11:45 106 H 20 98/79 94 L 06/25/21 11:30 107 H 20 92/75 06/25/21 11:15 116 H 18 103/79 06/25/21 11:00 104 H 22 103/56 06/25/21 10:46 101 H 20 95/73 06/25/21 10:37 99 20 110/86 06/25/21 09:22 98 20 97/84 97 06/25/21 09:00 97 20 92/60 97 06/25/21 07:53 98 20 78/62 97 06/25/21 06:26 98 19 74/54 97 06/25/21 03:09 97.4 F L 80 22 98/84 95 Intake and Output 06/24/21 06/25/21 06/25/21 22:59 06:59 14:59 Other: Weight 90.718 kg 90.718 kg General appearance: The patient is alert, oriented, appears in no acute distress. HET: Head is normocephalic and atraumatic. Conjunctiva pink. Sclera anicteric. Neck: Supple without lymphadenopathy. Trachea midline. Heart: S1 S2. Regular rate and rhythm. Lungs: Clear to auscultation. Abdomen: Soft, diffuse tenderness, distended, ascites, with bowel sounds. No guarding or rigidity. Skin: No rashes. Mild jaundice. Extremities: Normal skin color and turgor. No pedal edema. Neurological: No focal deficits. Alert and oriented x3. Results CBC & Chem 7: 06/25/21 03:23 06/25/21 03:23 Labs: Abnormal Lab Results - Last 24 Hours (Table) 06/25/21 06/25/21 06/25/21 Range/Units 03:23 03:23 03:23 RBC 2.81 L (4.30-5.90) m/uL Hgb 9.9 L (13.0-17.5) gm/dL Hct 30.9 L (39.0-53.0) % MCV 109.9 H (80.0-100.0) fL MCH 35.2 H (25.0-35.0) pg RDW 17.0 H (11.5-15.5) % Lymphocytes # (Manual) 0.98 L (1.0-4.8) k/uL Metamyelocytes # (Man) 0.15 H (0) k/uL Myelocytes # (Manual) 0.05 H (0) k/uL Macrocytosis Marked A PT 12.1 H (9.0-12.0) sec Sodium 132 L (137-145) mmol/L Chloride 97 L (98-107) mmol/L Glucose 114 H (74-99) mg/dL Calcium 8.0 L (8.4-10.2) mg/dL Magnesium 1.3 L (1.6-2.3) mg/dL Total Bilirubin 2.6 H (0.2-1.3) mg/dL Alkaline Phosphatase 580 H (38-126) U/L Total Protein 5.4 L (6.3-8.2) g/dL Albumin 2.8 L (3.5-5.0) g/dL Comments: Fluid seen in all 4 quadrants largest pocket seen in the right lower quadrant Assessment and Plan (1) Ascites Narrative/Plan: 65-year-old male with significant history of alcohol abuse and alcoholic cirrhosis. Patient has a history of paracentesis last done in February. He came in with shortness of breath, dyspnea with exertion and abdominal distentio n. He underwent a paracentesis on the emergency room removing 12.1 L of fluid. He was given albumin and pre-and post paracentesis. He states he has been feeling extremely weak over the last couple weeks and fell. He was supposed to follow-up with gastroenterology but states that he is feeling too weak and did not go. He does state he has been compliant with his diuretics and has been on Lasix 40 mg daily and spironolactone 100 mg daily. We'll continue with same dose of diuretics, recommend paracentesis in 3-4 days. Outpatient follow-up with gastroenterology, and low-sodium diet. Current Visit: Yes Status: Acute Code(s): R18.8 - OTHER ASCITES SNOMED Code(s): 015829229 (2) Liver cirrhosis, alcoholic Current Visit: No Status: Acute Code(s): K70.30 - ALCOHOLIC CIRRHOSIS OF LIVER WITHOUT ASCITES SNOMED Code(s): 345737181 (3) Alcohol abuse Current Visit: No Status: Acute Code(s): F10.10 - ALCOHOL ABUSE, UNCOMPLICATED SNOMED Code(s): 36515171 Plan: 1. Continue symptomatic and supportive care 2. Lasix 40 mg Aldactone 100 mg daily 3. Low-sodium diet 4. Recommend repeat therapeutic paracentesis in 3-4 days 5. Alcohol abstinence 6. Recommend close outpatient follow-up with gastroenterology Thank you for this consultation, we will continue to follow. Dr. Anderson Power I agree with the dictator's note, documented as a scribe by Niki Davis.
[2021-06-25] MEDS: IPRATROPIUM-ALBUTEROL 3 ML NEB INHALATION PRN (17:31)
--- NOTE | 2021-06-25 18:02 | P.CRDCN ---
History of Present Illness History of present illness: This is Dr. Zimmer dictating a consult on this patient The patient was interviewed and examined IMPRESSION / ASSESSMENT: Persistent atrial fibrillation with RVR Hypertension Ascites PLAN: Normally patient takes nadolol 40 mg daily for rate control but his blood pressure is low His A. fib rates of between 100 220 beats a minute If his heart rates do not come down with paracentesis, oral digoxin 0.125 mg daily may be considered since his kidney function is normal If his blood pressure normalizes, nadolol may be resumed Will sign off HPI Patient presenting with shortness of breath and abdominal pain Frail, moribund Cardiology consulted for A. fib with RVR, persistent Distended abdomen secondary to ascites Hypertensive ROS: No fever chills or rigors, no cough, phlegm or expectoration, no nausea, vomiting or diarrhea, no hematuria, dysuria, no musculoskeletal complaints, no strokes or seizures, no skin lesions. EXAMINATION: Upon admission blood pressure is 94 mmHg. Later it was less than 70 mmHg and oral Midodrin was ordered biphasic be Afebrile pulse rate 8210 beats a minute irregular REVIEW OF LABS, ECG & MEDICAL DATA Past history of atrial fibrillation, persistent Hypertension Twelve-lead EKG shows atrial fibrillation with heart rate 118 beats a minute Hemoglobin 9.9 normal white count Platelet count 221,000 Sodium 132, potassium 4.1 Normal troponin Elevated BNP Elevated alkaline phosphatase Past Medical History Past Medical History: Atrial Fibrillation, Heart Failure, COPD, GI Bleed, Hypert ension, Osteoarthritis (OA), Pneumonia, Thyroid Disorder Additional Past Medical History / Comment(s): ETOH abuse, pancytopenia, anemia with transfusions, liver cirrhosis, portal hypertension, ascities/paracentesises, upper GI bleed, AV malformations, duodenal/jejunal ectasia, gastropathy, hemorrhoids, pollyps, paroxysmal Afib, moderate to severe mitral regurgitation, chronic diastolic CHF, vertigo, past Dimas's palsy, chronic low back pain/spinal stenosis, hypothyroid. History of Any Multi-Drug Resistant Organisms: None Reported Past Surgical History: Hernia Repair Additional Past Surgical History / Comment(s): Paracentesises, CARROLL/cardioversion, EGDs, colonoscopies/polypectomy, SB enteroscopy, R thigh fatty tumor removed, epidural low back injections, abdominal hernia repair. Past Anesthesia/Blood Transfusion Reactions: No Reported Reaction Smoking Status: Former smoker - Past Family History Father Family Medical History: Hypertension Additional Family Medical History / Comment(s): heart valve replacements. Medications and Allergies Home Medications Medication Instructions Recorded Confirmed Type HYDROcodone/APAP 10-325MG [[place] 1 tab PO QID PRN 07/05/17 06/25/21 History 10-325] Furosemide [Lasix] 40 mg PO DAILY 08/12/20 06/25/21 History Levothyroxine Sodium [Synthroid] 100 mcg PO DAILY 10/14/20 06/25/21 History Omeprazole 40 mg PO DAILY 10/14/20 06/25/21 History Ferrous Sulfate [Feosol] 325 mg PO BID #60 tab 10/18/20 06/25/21 Rx Albuterol Inhaler [Ventolin Hfa 2 puff INHALATION RT-QID PRN 02/10/21 06/25/21 History Inhaler] Nadolol [Corgard] 40 mg PO DAILY 02/10/21 06/25/21 History Folic Acid 1 mg PO DAILY tab 02/18/21 06/25/21 Rx Magnesium Oxide [Mag-Ox] 400 mg PO BID #0 tab 02/18/21 06/25/21 Rx Spironolactone 100 mg PO DAILY 03/06/21 06/25/21 History Thiamine [Vitamin B-1] 50 mg PO DAILY 03/06/21 06/25/21 History Budesonide-Formot 160-4.5 Mcg 2 puff INHALATION RT-BID #1 inh 03/12/21 06/25/21 Rx [Symbicort 160-4.5 Mcg Inhaler] Diclofenac Sodium Gel [Voltaren 4 gm TOPICAL QID PRN 06/25/21 06/25/21 History Gel] Potassium Chloride [Potassium 10 meq PO BID 06/25/21 06/25/21 History Chloride ER] QUEtiapine [SEROquel] 50 - 100 mg PO HS 06/25/21 06/25/21 History Sennosides/Docusate Sodium [[place]enna 1 tab PO DAILY 06/25/21 06/25/21 History Plus 8.6-50 mg Tablet] Allergies Allergy/AdvReac Type Severity Reaction Status Date / Time cholesterol meds AdvReac See Uncoded 06/25/21 14:45 comments Physical Exam Vitals: Vital Signs Temp Pulse Pulse Resp BP BP Pulse Ox 06/25/21 17:43 80 06/25/21 17:33 78 06/25/21 15:16 97.6 F 74 16 85/57 89 L 06/25/21 14:59 20 06/25/21 14:45 20 91/61 96 06/25/21 13:45 20 99/73 94 L 06/25/21 13:30 87 18 72/51 95 06/25/21 13:15 97.6 F 74 16 85/57 89 L 06/25/21 12:35 101 H 18 98/50 06/25/21 12:10 107 H 20 84/65 06/25/21 12:05 99 20 87/68 06/25/21 12:00 98 20 94/72 93 L 06/25/21 11:45 106 H 20 98/79 94 L 06/25/21 11:30 107 H 20 92/75 06/25/21 11:15 116 H 18 103/79 06/25/21 11:00 104 H 22 103/56 06/25/21 10:46 101 H 20 95/73 06/25/21 10:37 99 20 110/86 06/25/21 09:22 98 20 97/84 97 06/25/21 09:00 97 20 92/60 97 06/25/21 07:53 98 20 78/62 97 06/25/21 06:26 98 19 74/54 97 06/25/21 03:09 97.4 F L 80 22 98/84 95 Intake and Output 06/25/21 06/25/21 06/25/21 06:59 14:59 22:59 Output Total 100 Balance -100 Output: Urine 100 Other: Voiding Method Urinal Weight 90.718 kg 90.718 kg Results 06/25/21 03:23 06/25/21 03:23 Cardiac Enzymes 06/25/21 06/25/21 Range/Units 03:23 03:23 AST 47 (17-59) U/L Troponin I <0.012 (0.000-0.034) ng/mL Coagulation 06/25/21 Range/Units 03:23 PT 12.1 H (9.0-12.0) sec APTT 27.4 (22.0-30.0) sec CBC 06/25/21 Range/Units 03:23 WBC 4.9 (3.8-10.6) k/uL RBC 2.81 L (4.30-5.90) m/uL Hgb 9.9 L (13.0-17.5) gm/dL Hct 30.9 L (39.0-53.0) % Plt Count 221 (150-450) k/uL Comprehensive Metabolic Panel 06/25/21 Range/Units 03:23 Sodium 132 L (137-145) mmol/L Potassium 4.1 (3.5-5.1) mmol/L Chloride 97 L (98-107) mmol/L Carbon Dioxide 29 (22-30) mmol/L BUN 15 (9-20) mg/dL Creatinine 0.82 (0.66-1.25) mg/dL Glucose 114 H (74-99) mg/dL Calcium 8.0 L (8.4-10.2) mg/dL AST 47 (17-59) U/L ALT 12 (4-49) U/L Alkaline Phosphatase 580 H (38-126) U/L Total Protein 5.4 L (6.3-8.2) g/dL Albumin 2.8 L (3.5-5.0) g/dL Current Medications Generic Name Dose Route Start Last Admin Trade Name Freq PRN Reason Stop Dose Admin Hydrocodone Bitart/Acetaminophen 1 each 06/25/21 16:46 Hydrocodone/Apap 5-325mg 1 Each Tab PO BID PRN Pain Albuterol/Ipratropium 3 ml 06/25/21 16:46 06/25/21 17:31 Ipratropium-Albuterol 3 Ml Neb INHALATION 3 ml RT-Q4H PRN Administration Shortness Of Breath Or Wheezing Furosemide 40 mg 06/26/21 09:00 Furosemide 40 Mg Tab PO DAILY JERRY Lorazepam 0.5 mg 06/25/21 04:16 Lorazepam 2 Mg/Ml Inj IV Q6HR PRN Anxiety Naloxone HCl 0.2 mg 06/25/21 04:16 Naloxone 0.4 Mg/Ml 1 Ml Vial IV Q2M PRN Opioid Reversal Ondansetron HCl 4 mg 06/25/21 03:17 06/25/21 06:20 Ondansetron 4 Mg/2 Ml Vial IVP 4 mg Q8HR PRN Administration Nausea And Vomiting Pantoprazole Sodium 40 mg 06/25/21 09:00 06/25/21 09:12 Pantoprazole 40 Mg/10 Ml Vial IV 40 mg DAILY JERRY Administration Spironolactone 100 mg 06/26/21 09:00 Spironolactone 25 Mg Tab PO DAILY JERRY Intake and Output 06/25/21 06/25/21 06/25/21 06:59 14:59 22:59 Output Total 100 Balance -100 Output: Urine 100 Other: Voiding Method Urinal Weight 90.718 kg 90.718 kg Patient Weight 06/26/21 06:59 Weight 90.718 kg 06/25/21 03:23 06/25/21 03:23
[2021-06-25] MEDS: HYDROcodone/APAP 5-325MG 1 EACH TAB PO PRN ×2 (18:03→21:59)
--- NOTE | 2021-06-25 23:01 | P.HPIM ---
History of Present Illness H&P Date: 06/25/21 Chief Complaint: weakness, abdominal pain Nomi Hernadez is a 65 yo M with PMH of alcoholic cirrhosis with ascites, A fib, heart failure who presented to the ED complaining of worsening abdominal pain and distention. He states that over the past 4 weeks he has become weak to the point he is not able to leave his bed and has been noticing worsening of his abdominal distention. He has remained compliant with low sodium diet, lasix and aldactone. He denies recent illness. Endorses shortness of breath with exertion. On presentation pt hypotensive, Hgb 9.9, Bili 2.6, albumin 2.8, alk phos 560. Abd US with significant ascites. Review of Systems All systems: negative Constitutional: Reports malaise, Reports weakness, Denies chills, Denies fever Eyes: denies blurred vision, denies pain Ears, nose, mouth and throat: Denies headache, Denies sore throat Cardiovascular: Denies chest pain, Denies shortness of breath Respiratory: Reports cough, Reports dyspnea Gastrointestinal: Reports abdominal pain, Reports bloating, Denies diarrhea, Denies nausea, Denies vomiting Musculoskeletal: Denies myalgias Integumentary: Denies pruritus, Denies rash Neurological: Denies numbness, Denies weakness Psychiatric: Denies anxiety, Denies depression Endocrine: Denies fatigue, Denies weight change Past Medical History Past Medical History: Atrial Fibrillation, Heart Failure, COPD, GI Bleed, Hypertension, Osteoarthritis (OA), Pneumonia, Thyroid Disorder Additional Past Medical History / Comment(s): ETOH abuse, pancytopenia, anemia with transfusions, liver cirrhosis, portal hypertension, ascities/pa racentesises, upper GI bleed, AV malformations, duodenal/jejunal ectasia, gastropathy, hemorrhoids, pollyps, paroxysmal Afib, moderate to severe mitral regurgitation, chronic diastolic CHF, vertigo, past Dimas's palsy, chronic low back pain/spinal stenosis, hypothyroid. History of Any Multi-Drug Resistant Organisms: None Reported Past Surgical History: Hernia Repair Additional Past Surgical History / Comment(s): Paracentesises, CARROLL/cardioversion, EGDs, colonoscopies/polypectomy, SB enteroscopy, R thigh fatty tumor removed, epidural low back injections, abdominal hernia repair. Past Anesthesia/Blood Transfusion Reactions: No Reported Reaction Smoking Status: Former smoker - Past Family History Father Family Medical History: Hypertension Additional Family Medical History / Comment(s): heart valve replacements. Medications and Allergies Home Medications Medication Instructions Recorded Confirmed Type HYDROcodone/APAP 10-325MG [[place] 1 tab PO QID PRN 07/05/17 06/25/21 History 10-325] Furosemide [Lasix] 40 mg PO DAILY 08/12/20 06/25/21 History Levothyroxine Sodium [Synthroid] 100 mcg PO DAILY 10/14/20 06/25/21 History Omeprazole 40 mg PO DAILY 10/14/20 06/25/21 History Ferrous Sulfate [Feosol] 325 mg PO BID #60 tab 10/18/20 06/25/21 Rx Albuterol Inhaler [Ventolin Hfa 2 puff INHALATION RT-QID PRN 02/10/21 06/25/21 History Inhaler] Nadolol [Corgard] 40 mg PO DAILY 02/10/21 06/25/21 History Folic Acid 1 mg PO DAILY tab 02/18/21 06/25/21 Rx Magnesium Oxide [Mag-Ox] 400 mg PO BID #0 tab 02/18/21 06/25/21 Rx Spironolactone 100 mg PO DAILY 03/06/21 06/25/21 History Thiamine [Vitamin B-1] 50 mg PO DAILY 03/06/21 06/25/21 History Budesonide-Formot 160-4.5 Mcg 2 puff INHALATION RT-BID #1 inh 03/12/21 06/25/21 Rx [Symbicort 160-4.5 Mcg Inhaler] Diclofenac Sodium Gel [Voltaren 4 gm TOPICAL QID PRN 06/25/21 06/25/21 History Gel] Potassium Chloride [Potassium 10 meq PO BID 06/25/21 06/25/21 History Chloride ER] QUEtiapine [SEROquel] 50 - 100 mg PO HS 06/25/21 06/25/21 History Sennosides/Docusate Sodium [[place] 1 tab PO DAILY 06/25/21 06/25/21 History Plus 8.6-50 mg Tablet] Allergies Allergy/AdvReac Type Severity Reaction Status Date / Time cholesterol meds AdvReac See Uncoded 06/25/21 14:45 comments Physical Exam Vitals: Vital Signs Temp Pulse Pulse Resp BP BP Pulse Ox 06/25/21 17:43 80 06/25/21 17:33 78 06/25/21 15:16 97.6 F 74 16 85/57 89 L 06/25/21 14:59 20 06/25/21 14:45 20 91/61 96 06/25/21 13:45 20 99/73 94 L 06/25/21 13:30 87 18 72/51 95 06/25/21 13:15 97.6 F 74 16 85/57 89 L 06/25/21 12:35 101 H 18 98/50 06/25/21 12:10 107 H 20 84/65 06/25/21 12:05 99 20 87/68 06/25/21 12:00 98 20 94/72 93 L 06/25/21 11:45 106 H 20 98/79 94 L 06/25/21 11:30 107 H 20 92/75 06/25/21 11:15 116 H 18 103/79 06/25/21 11:00 104 H 22 103/56 06/25/21 10:46 101 H 20 95/73 06/25/21 10:37 99 20 110/86 06/25/21 09:22 98 20 97/84 97 06/25/21 09:00 97 20 92/60 97 06/25/21 07:53 98 20 78/62 97 06/25/21 06:26 98 19 74/54 97 06/25/21 03:09 97.4 F L 80 22 98/84 95 Intake and Output 06/25/21 06/25/21 06/25/21 06:59 14:59 22:59 Output Total 100 Balance -100 Output: Urine 100 Other: Voiding Method Urinal Weight 90.718 kg 90.718 kg General: ill appearing, frail. Vitals reviewed Eyes: PERRL, EOMI, conjunctiva normal HENT: normocephalic, mucus membranes moist Neck: supple, no JVD Lungs: normal respiratory effort, no wheezes or rales CV: Regular rate and rhythm, no murmur. Peripheral pulses 2+ Abdomen: tense, distended, generalized tenderness Lymph: no cervical or axillary LAD Skin: warm and dry. Neuro: A&Ox3, normal mood and affect Results CBC & Chem 7: 06/25/21 03:23 06/25/21 03:23 Labs: Abnormal Lab Results - Last 24 Hours (Table) 06/25/21 06/25/21 06/25/21 Range/Units 03:23 03:23 03:23 RBC 2.81 L (4.30-5.90) m/uL Hgb 9.9 L (13.0-17.5) gm/dL Hct 30.9 L (39.0-53.0) % MCV 109.9 H (80.0-100.0) fL MCH 35.2 H (25.0-35.0) pg RDW 17.0 H (11.5-15.5) % Lymphocytes # (Manual) 0.98 L (1.0-4.8) k/uL Metamyelocytes # (Man) 0.15 H (0) k/uL Myelocytes # (Manual) 0.05 H (0) k/uL Macrocytosis Marked A PT 12.1 H (9.0-12.0) sec Sodium 132 L (137-145) mmol/L Chloride 97 L (98-107) mmol/L Glucose 114 H (74-99) mg/dL Calcium 8.0 L (8.4-10.2) mg/dL Magnesium 1.3 L (1.6-2.3) mg/dL Total Bilirubin 2.6 H (0.2-1.3) mg/dL Alkaline Phosphatase 580 H (38-126) U/L Total Protein 5.4 L (6.3-8.2) g/dL Albumin 2.8 L (3.5-5.0) g/dL Thrombosis Risk Factor Assmnt - Choose All That Apply Any of the Below Risk Factors Present?: Yes Each Factor Represents 1 point: Abnormal pulmonary function (COPD) Other Risk Factors: Yes Each Risk Factor Represents 2 Points: Age 61-74 years Other congenital or acquired thrombophilia - If yes, enter type in comment: No Thrombosis Risk Factor Assessment Total Risk Factor Score: 3 Thrombosis Risk Factor Assessment Level: Moderate Risk Assessment and Plan Plan: 1. Alcoholic cirrhoisis with ascites. IV albumin, therapeutic paracentesis. Continue lasix and aldactone. GI consult. Midodrine prior to procedure 2. Atrial fibrillation. Not on AC due to hx GIB. Cardiology consulted
[2021-06-26] MEDS ORDERED: Magnesium Replacement Protocol 1 EACH MISC MISCELLANE PRN ×2 (07:44→13:47)
[2021-06-26] MEDS: HYDROcodone/APAP 5-325MG 1 EACH TAB PO PRN (08:31)
[2021-06-26] MEDS: PANTOPRAZOLE 40 MG/10 ML VIAL IV SCH (08:32)
[2021-06-26] MEDS ORDERED: FUROSEMIDE 40 MG TAB PO SCH (09:00)
[2021-06-26] MEDS ORDERED: MIDODRINE 5 MG TAB PO SCH (09:00)
[2021-06-26] MEDS ORDERED: SPIRONOLACTONE 25 MG TAB PO SCH (09:00)
--- NOTE | 2021-06-26 09:24 | P.DS ---
Providers Date of admission: 06/25/21 04:16 Expected date of discharge: 06/26/21 Attending physician: Cosmo Light MD Consults: 06/25/21 06:15 Consult Physician Routine Consulting Provider: Ghazala Davalos Consult Reason/Comments: chf Do you want consulting provider notified?: Yes 06/25/21 11:39 Consult Physician Routine Consulting Provider: Catherine Power Consult Reason/Comments: ascites Do you want consulting provider notified?: Yes Primary care physician: Cosmo Light MD Hospital Course: Final Diagnoses: Alcoholic cirrhosis with ascites Atrial fibrillation, not on anticoagulation secondary to history of GI bleed Hypomagnesemia Alcohol abuse, reports has not drank since January 2021 Nicotine dependence, reports he quit a week ago. Hospital course:Nomi Hernadez is a 65 yo M with PMH of alcoholic cirrhosis with ascites, A fib, heart failure who presented to the ED complaining of worsening abdominal pain and distention. He states that over the past 4 weeks he has become weak to the point he is not able to leave his bed and has been noticing worsening of his abdominal distention. He has remained compliant with low sodium diet, lasix and aldactone. He denies recent illness. Endorses shortness of breath with exertion. On presentation pt hypotensive, Hgb 9.9, Bili 2.6, albumin 2.8, alk phos 560. Abd US with significant ascites. Evaluated by GI .Status post paracentesis with 12.1 L of serous fluid drained. Received albumin, required Midodrin for hypotension. Patient has been cleared by GI for discharge and is to follow-up next week with them for repeat paracentesis. Evaluated by cardiology regarding atrial fibrillation with RVR, currently heart rates are controlled. Patient normally takes nadolol which continues on hold related to hypotension. Reevaluate in clinic, resume when blood pressure normalizes-will currently be discharged on Midodrin. Significant clinical improvement. Patient will be discharged home today in stable condition with guarded prognosis. magnesium level pending. Nicotine cessation and continue alcohol abstinence reinforced. The impression and plan of care has been dictated as directed. : I performed a history and examination of this patient, discussed the same with the dictator. I agree with the dictator's note ,documented as a scribe. Any additional findings or plans will be noted. Patient Condition at Discharge: Stable Plan - Discharge Summary Discharge Rx Participant: No New Discharge Prescriptions: New Midodrine [ProAmatine] 5 mg PO BID 14 Days #28 tablet Continue HYDROcodone/APAP 10-325MG [[place] 10-325] 1 tab PO QID PRN PRN Reason: Pain Furosemide [Lasix] 40 mg PO DAILY Folic Acid 1 mg PO DAILY tab Thiamine [Vitamin B-1] 50 mg PO DAILY Budesonide-Formot 160-4.5 Mcg [Symbicort 160-4.5 Mcg Inhaler] 2 puff INHALATION RT-BID #1 inh Sennosides/Docusate Sodium [Senna Plus 8.6-50 mg Tablet] 1 tab PO DAILY QUEtiapine [SEROquel] 50 - 100 mg PO HS Potassium Chloride [Potassium Chloride ER] 10 meq PO BID Levothyroxine Sodium [Synthroid] 100 mcg PO DAILY Omeprazole 40 mg PO DAILY Ferrous Sulfate [Feosol] 325 mg PO BID #60 tab Albuterol Inhaler [Ventolin Hfa Inhaler] 2 puff INHALATION RT-QID PRN PRN Reason: Shortness Of Breath Nadolol [Corgard] 40 mg PO DAILY Magnesium Oxide [Mag-Ox] 400 mg PO BID #0 tab Spironolactone 100 mg PO DAILY Diclofenac Sodium Gel [Voltaren Gel] 4 gm TOPICAL QID PRN PRN Reason: Pain Discharge Medication List HYDROcodone/APAP 10-325MG [[place] 10-325] 1 tab PO QID PRN 07/05/17 [History] Furosemide [Lasix] 40 mg PO DAILY 08/12/20 [History] Levothyroxine Sodium [Synthroid] 100 mcg PO DAILY 10/14/20 [History] Omeprazole 40 mg PO DAILY 10/14/20 [History] Ferrous Sulfate [Feosol] 325 mg PO BID #60 tab 10/18/20 [Rx] Albuterol Inhaler [Ventolin Hfa Inhaler] 2 puff INHALATION RT-QID PRN 02/10/21 [History] Nadolol [Corgard] 40 mg PO DAILY 02/10/21 [History] Folic Acid 1 mg PO DAILY tab 02/18/21 [Rx] Magnesium Oxide [Mag-Ox] 400 mg PO BID #0 tab 02/18/21 [Rx] Spironolactone 100 mg PO DAILY 03/06/21 [History] Thiamine [Vitamin B-1] 50 mg PO DAILY 03/06/21 [History] Budesonide-Formot 160-4.5 Mcg [Symbicort 160-4.5 Mcg Inhaler] 2 puff INHALATION RT-BID #1 inh 03/12/21 [Rx] Diclofenac Sodium Gel [Voltaren Gel] 4 gm TOPICAL QID PRN 06/25/21 [History] Potassium Chloride [Potassium Chloride ER] 10 meq PO BID 06/25/21 [History] QUEtiapine [SEROquel] 50 - 100 mg PO HS 06/25/21 [History] Sennosides/Docusate Sodium [Senna Plus 8.6-50 mg Tablet] 1 tab PO DAILY 06/25/21 [History] Midodrine [ProAmatine] 5 mg PO BID 14 Days #28 tablet 06/26/21 [Rx] Follow up Appointment(s)/Referral(s): Cosmo Light MD [Primary Care Provider] - 3 Days Catherine Power MD [STAFF PHYSICIAN] - 07/09/21 4:30 pm (Appointment made with DR Power . Please arrive at 4:00pm ) Patient Instructions/Handouts: Bronchiolitis (ED) Activity/Diet/Wound Care/Special Instructions: [facility] Discharge Disposition: HOME WITH HOME HEALTH SERVICES
[2021-06-26] MEDS: IPRATROPIUM-ALBUTEROL 3 ML NEB INHALATION PRN (12:18)
--- NOTE | 2021-06-26 13:04 | P.PN ---
Subjective Progress Note Date: 06/26/21 Principal diagnosis: Ascites this is 65-year-old male with a history of alcoholic cirrhosis of the liver who had presented with abdominal ascites. Yesterday he underwent paracentesis with 12.1 L removed. Today he is feeling better. He denies any nausea or vomiting. He states he has some abdominal tenderness but is feeling much better. Objective - Vital Signs Vital signs: Vital Signs Temp 98.3 F 06/26/21 02:35 Pulse 102 H 06/26/21 02:35 Resp 18 06/26/21 02:35 BP 101/71 06/26/21 02:35 Pulse Ox 94 L 06/26/21 02:35 Intake & Output 06/25/21 06/26/21 06/26/21 18:59 06:59 18:59 Output Total 100 Balance -100 Weight 90.718 kg Output: Urine 100 Other: Voiding Method Urinal # Voids 2 - Exam General appearance: The patient is alert, oriented, appears in no acute distress. HET: Head is normocephalic and atraumatic. Conjunctiva pink. Sclera anicteric. Neck: Supple without lymphadenopathy. Abdomen: Soft, mild tenderness near paracentesis site, nondistended with bowel sounds. No guarding or rigidity. Extremities: Normal skin color and turgor. No pedal edema Skin: No rashes, no jaundice Neurological: No focal deficits. Alert and oriented -3. - Labs CBC & Chem 7: 06/25/21 03:23 06/25/21 03:23 Assessment and Plan (1) Ascites Narrative/Plan: 65-year-old male with significant history of alcohol abuse and alcoholic cirrhosis. Patient has a history of paracentesis last done in February. He came in with shortness of breath, dyspnea with exertion and abdominal distention. He underwent a paracentesis on the emergency room removing 12.1 L of fluid. He was given albumin and pre-and post paracentesis. He states he has been feeling extremely weak over the last couple weeks and fell. He was sup posed to follow-up with gastroenterology but states that he is feeling too weak and did not go. He does state he has been compliant with his diuretics and has been on Lasix 40 mg daily and spironolactone 100 mg daily. We'll continue with same dose of diuretics, recommend paracentesis in 3-4 days. Outpatient follow- up with gastroenterology, and low-sodium diet. Current Visit: Yes Status: Acute Code(s): R18.8 - OTHER ASCITES SNOMED Code(s): 792903871 (2) Liver cirrhosis, alcoholic Current Visit: No Status: Acute Code(s): K70.30 - ALCOHOLIC CIRRHOSIS OF LIVER WITHOUT ASCITES SNOMED Code(s): 755598229 (3) Alcohol abuse Current Visit: No Status: Acute Code(s): F10.10 - ALCOHOL ABUSE, UNCOMPLICATED SNOMED Code(s): 72518672 Plan: 1. Continue symptomatic and supportive care 2. Lasix 40 mg Aldactone 100 mg daily 3. Low-sodium diet 4. Recommend repeat therapeutic paracentesis as needed 5. Alcohol abstinence 6. Recommend close outpatient follow-up with gastroenterology. Follow-up in one week. Thank you for allowing us to participate in the care of the patient, the GI service will sign off, gastroenterology will not be available at the hospital this weekend and through next week. If further evaluation by gastroenterology is required the patient will need transfer as per the primary team's discretion. Dr. Anderson Power I agree with the dictator's note, documented as a scribe by Niki Davis.
[2021-06-26] MEDS: MAGNESIUM SULFATE-D5W PMX 1 GM in DEXTROSE/WATER 1 100ML.BAG IVPB SCH ×2 (13:56→14:54)
[2021-06-26 15:18] VITALS: BP 92/65; PULSE 86; RESP 16; TEMP 98.1
== END 2021-06-26 16:06 | disposition home health service (06) ==
LOC: EC 03:06 → 6NMEDSUR 04:16
PROVIDERS: ADMIT Family Medicine; ATTEND Family Medicine
DX: K70.31 Alcoholic cirrhosis of liver with ascites (principal); F10.10 Alcohol abuse, uncomplicated; I11.0 Hypertensive heart disease with heart failure; I50.32 Chronic diastolic (congestive) heart failure; I48.19 Other persistent atrial fibrillation; E83.42 Hypomagnesemia; M19.90 Unspecified osteoarthritis, unspecified site; D64.9 Anemia, unspecified; G89.29 Other chronic pain; M54.50 Low back pain, unspecified; G51.0 Bell's palsy; F41.9 Anxiety disorder, unspecified; I95.9 Hypotension, unspecified; R53.1 Weakness; E03.9 Hypothyroidism, unspecified; I34.0 Nonrheumatic mitral (valve) insufficiency; K76.6 Portal hypertension; J44.9 Chronic obstructive pulmonary disease, unspecified; Z79.899 Other long term (current) drug therapy; Z79.890 Hormone replacement therapy; Z79.51 Long term (current) use of inhaled steroids; Z88.8 Allergy status to other drugs, medicaments and biological substances; Z87.891 Personal history of nicotine dependence; Z82.49 Family history of ischemic heart disease and other diseases of the circulatory system; Z87.19 Personal history of other diseases of the digestive system; Z71.9 Counseling, unspecified; Z71.41 Alcohol abuse counseling and surveillance of alcoholic; Z71.6 Tobacco abuse counseling
CPT/HCPCS: 96376 ×2; 96366 ×2; 96365; 96375; 99285; 36415; 94640 ×2; 93005; 83880; 80053; 82140; 83605; 83690; 83735 ×2; 84484; 85025; 85610; 85730; 71045; 76705; 49083; G0378 ×2; G0480; J2405; P9047; J3010; J3475 ×2; C9113 ×2; 80320

== ENCOUNTER 2021-07-30 12:16 | Day surgery (SDC) | payer MEDICARE ==
[2021-07-30 12:56] LABS: Mean Platelet Volume 7.4; Platelet Count 271 k/uL (150-450)
[2021-07-30 13:06] LABS: INR 1.1 (<1.2); Prothrombin Time 11.7 sec (9.0-12.0)
[2021-07-30 13:08] LABS: African American GFR (CKD) >90 (>60 ml/min/1.73 sqM); Non-African American GFR(CKD) >90 (>60 ml/min/1.73 sqM)
[2021-07-30 13:10] VITALS: TEMP 97.9
[2021-07-30] MEDS: ALBUMIN HUMAN 25% 50 ML in EMPTY BAG 1 BAG IVPB SCH ×4 (13:43→14:32)
[2021-07-30 15:43] VITALS: BP 109/80; PULSE 71; RESP 14
--- NOTE | 2021-07-30 16:02 | US ---
Ultrasound-guided paracentesis. DATE OF EXAM: 07/30/2021 CLINICAL HISTORY: Ascites The procedure was discussed with the patient. The risks, complications, benefits, and alternatives we re discussed and any questions were answered. Informed consent was obtained. The patient was placed s upine on the ultrasound table and prepped and draped in the usual sterile fashion. All elements of maximal barrier technique were utilized. Under ultrasound guidance, access into the right lower quadrant was obtained, via the paracentesis catheter system and direct ultrasound guidanc e. Approximately 12.1 liters of straw-colored fluid was removed. The patient was stable throughout the p rocedure and remained stable upon discharge from Department of Radiology. IMPRESSION: Successful paracentesis under ultrasound guidance.
== END 2021-07-30 15:35 | disposition home or self-care (01) ==
LOC: RADPROMAIN 12:16
PROVIDERS: ATTEND Family Medicine
DX: K74.60 Unspecified cirrhosis of liver (principal); R18.8 Other ascites
CPT/HCPCS: 82565; 85049; 85610; 36415; 49083; P9047

== ENCOUNTER 2021-08-31 12:34 | Day surgery (SDC) | payer MEDICARE ==
[2021-08-31 13:05] LABS: Mean Platelet Volume 8.2; Platelet Count 246 k/uL (150-450)
[2021-08-31 13:13] LABS: African American GFR (CKD) >90 (>60 ml/min/1.73 sqM); Non-African American GFR(CKD) >90 (>60 ml/min/1.73 sqM)
[2021-08-31 13:18] LABS: Prothrombin Time 10.8 sec (9.0-12.0)
[2021-08-31] MEDS: ALBUMIN HUMAN 25% 50 ML in EMPTY BAG 1 BAG IVPB SCH ×4 (13:29→15:54)
[2021-08-31 13:34] VITALS: RESP 18; TEMP 97.8
[2021-08-31 15:52] VITALS: BP 94/68; PULSE 98
--- NOTE | 2021-08-31 16:17 | US ---
EXAMINATION TYPE: US paracentesis abd w/image DATE OF EXAM: 08/31/2021 COMPARISON: NONE HISTORY: Ascites. PROCEDURE: Maximal barrier technique was utilized. The skin overlying a suitable pocket of fluid was localized with ultrasound and the overlying skin was prepped and draped. Ultrasound was utilized with sterile technique. Lidocaine was used for local anesthesia and a skin salvador made with a scalpel. Catheter was advanced under direct ultrasound guidance into a suitable pocket of fluid and approximately 12 liters of serous fluid were removed. Catheter was withdrawn and hemostasis achieved. There is no immediat e complication; the patient is discharged in stable condition. IMPRESSION: STATUS POST ULTRASOUND GUIDED PARACENTESIS FOR PALLIATION OF ASCITES. THIS PROCEDURE WA S PERFORMED BY THE UNDERSIGNED.
== END 2021-08-31 15:30 | disposition home or self-care (01) ==
LOC: RADPROMAIN 12:34
PROVIDERS: ATTEND Family Medicine
DX: K74.60 Unspecified cirrhosis of liver (principal)
CPT/HCPCS: 82565; 85049; 85610; 49083; P9047

== ENCOUNTER 2021-09-14 13:07 | Day surgery (SDC) | payer MEDICARE ==
[2021-09-14 13:48] LABS: Platelet Count 201 k/uL (150-450)
[2021-09-14 13:52] VITALS: TEMP 97.7
[2021-09-14 13:57] LABS: African American GFR (CKD) >90 (>60 ml/min/1.73 sqM); Non-African American GFR(CKD) 90 (>60 ml/min/1.73 sqM)
[2021-09-14 14:01] LABS: Prothrombin Time 10.5 sec (9.0-12.0)
[2021-09-14] MEDS: ALBUMIN HUMAN 25% 50 ML in EMPTY BAG 1 BAG IVPB SCH ×4 (14:31→15:29)
[2021-09-14 16:12] VITALS: BP 100/64; PULSE 81; RESP 20
--- NOTE | 2021-09-15 07:43 | US ---
Ultrasound-guided paracentesis. DATE OF EXAM: 09/14/2021 CLINICAL HISTORY: Ascites The procedure was discussed with the patient. The risks, complications, benefits, and alternatives we re discussed and any questions were answered. Informed consent was obtained. The patient was placed s upine on the ultrasound table and prepped and draped in the usual sterile fashion. All elements of maximal barrier technique were utilized. Under ultrasound guidance, access into the right lower quadrant was obtained, via the paracentesis catheter system and direct ultrasound guidanc e. Approximately 9 liters of straw-colored fluid was removed. The patient was stable throughout the proc edure and remained stable upon discharge from Department of Radiology. IMPRESSION: Successful paracentesis under ultrasound guidance.
== END 2021-09-14 16:00 | disposition home or self-care (01) ==
LOC: RADPROMAIN 13:07
PROVIDERS: ATTEND Family Medicine
DX: K74.60 Unspecified cirrhosis of liver (principal)
CPT/HCPCS: 82565; 85049; 85610; 36415; 49083; P9047

== ENCOUNTER 2021-10-15 13:02 | Day surgery (SDC) | payer MEDICARE ==
[2021-10-15 13:49] LABS: INR 1.1 (<1.2); Prothrombin Time 11.4 sec (9.0-12.0)
[2021-10-15 13:56] LABS: African American GFR (CKD) >90 (>60 ml/min/1.73 sqM); Non-African American GFR(CKD) 82 (>60 ml/min/1.73 sqM)
[2021-10-15 14:05] LABS: Mean Platelet Volume 7.8; Platelet Count 213 k/uL (150-450)
[2021-10-15 14:36] VITALS: TEMP 98.5
[2021-10-15] MEDS: ALBUMIN HUMAN 25% 50 ML in EMPTY BAG 1 BAG IVPB SCH ×4 (14:44→15:32)
[2021-10-15 15:59] VITALS: BP 96/54; PULSE 78
--- NOTE | 2021-10-16 08:31 | US ---
EXAMINATION TYPE: US paracentesis abd w/image DATE OF EXAM: 10/15/2021 COMPARISON: NONE HISTORY: Ascites. PROCEDURE: Maximal barrier technique was utilized. The skin overlying a suitable pocket of fluid was localized with ultrasound and the overlying skin was prepped and draped. Ultrasound was utilized with sterile technique. Lidocaine was used for local anesthesia and a skin salvador made with a scalpel. Catheter was advanced under direct ultrasound guidance into a suitable pocket of fluid and approximately 10.5 lite rs of ascitic fluid were removed. Catheter was withdrawn and hemostasis achieved. There is no immed iate complication; the patient is discharged in stable condition. IMPRESSION: STATUS POST ULTRASOUND GUIDED PARACENTESIS FOR PALLIATION OF ASCITES. THIS PROCEDURE WA S PERFORMED BY THE UNDERSIGNED.
== END 2021-10-15 16:06 | disposition home or self-care (01) ==
LOC: RADPROMAIN 13:02
PROVIDERS: ATTEND Family Medicine
DX: K74.60 Unspecified cirrhosis of liver (principal)
CPT/HCPCS: 82565; 85049; 85610; 36415; 49083; P9047

== ENCOUNTER 2021-11-05 12:43 | Day surgery (SDC) | payer MEDICARE ==
[2021-11-05 13:42] LABS: Mean Platelet Volume 7.7; Platelet Count 193 k/uL (150-450)
[2021-11-05 13:49] VITALS: RESP 16; TEMP 97.8
[2021-11-05 13:51] LABS: HCT 35.7 % (39.0-53.0); HGB 11.7 gm/dL (13.0-17.5); MCH 33.1 pg (25.0-35.0); MCHC 32.8 g/dL (31.0-37.0); MCV 100.8 fL (80.0-100.0); Macrocytosis Slight; Mean Platelet Volume 7.8; Platelet Count 198 k/uL (150-450); Poikilocytosis Slight; RBC 3.54 m/uL (4.30-5.90); RDW 15.2 % (11.5-15.5)
[2021-11-05 13:51] LABS: African American GFR (CKD) >90 (>60 ml/min/1.73 sqM); Non-African American GFR(CKD) 82 (>60 ml/min/1.73 sqM)
[2021-11-05 14:03] LABS: Prothrombin Time 10.7 sec (9.0-12.0)
[2021-11-05 14:20] LABS: ALT 26 U/L (4-49); AST 33 U/L (17-59); African American GFR (CKD) >90 (>60 ml/min/1.73 sqM); Albumin 3.8 g/dL (3.5-5.0); Alkaline Phosphatase 279 U/L (38-126); Anion Gap 6 mmol/L; Blood Urea Nitrogen 20 mg/dL (9-20); Carbon Dioxide 28 mmol/L (22-30); Chloride 97 mmol/L (98-107); Glucose 102 mg/dL (74-99); Non-African American GFR(CKD) 85 (>60 ml/min/1.73 sqM); Potassium 4.2 mmol/L (3.5-5.1); Sodium 131 mmol/L (137-145); Total Bilirubin 1.1 mg/dL (0.2-1.3); Total Protein 6.1 g/dL (6.3-8.2)
[2021-11-05] MEDS: ALBUMIN HUMAN 25% 50 ML in EMPTY BAG 1 BAG IVPB SCH ×4 (14:29→15:27)
[2021-11-05 14:33] LABS: T4, Free (Free Thyroxine) 1.59 ng/dL (0.78-2.19)
[2021-11-05 16:05] VITALS: BP 114/74; PULSE 78
[2021-11-05 19:04] LABS: Chol/HDL Ratio 2.92 Ratio; LDL Cholesterol,Calculated 89.1 mg/dL (0.0-131.0); VLDL Calculation 17.44 mg/dL (5.00-40.00)
== END 2021-11-05 15:50 | disposition home or self-care (01) ==
LOC: RADPROMAIN 12:43
PROVIDERS: ATTEND Family Medicine
DX: R18.8 Other ascites (principal); K74.60 Unspecified cirrhosis of liver; E03.9 Hypothyroidism, unspecified; Z88.8 Allergy status to other drugs, medicaments and biological substances; Z79.51 Long term (current) use of inhaled steroids; Z79.899 Other long term (current) drug therapy; Z87.891 Personal history of nicotine dependence; Z28.311 Partially vaccinated for COVID-19; Z82.49 Family history of ischemic heart disease and other diseases of the circulatory system
CPT/HCPCS: 84439; 80061; 80053; 82565; 84443; 85027; 85049; 85610; 36415; 49083; P9047

== ENCOUNTER 2021-12-17 08:54 | Day surgery (SDC) | payer MEDICARE ==
[2021-12-17 09:37] LABS: Mean Platelet Volume 8.1; Platelet Count 187 k/uL (150-450)
[2021-12-17 09:47] LABS: Prothrombin Time 10.6 sec (9.0-12.0)
[2021-12-17 10:06] VITALS: RESP 16; TEMP 97.4
[2021-12-17] MEDS: ALBUMIN HUMAN 25% 50 ML in EMPTY BAG 1 BAG IVPB SCH ×3 (11:11→12:25)
[2021-12-17 11:52] VITALS: BP 111/76; PULSE 65
--- NOTE | 2021-12-17 16:11 | US ---
EXAMINATION TYPE: US paracentesis abd w/image DATE OF EXAM: 12/17/2021 COMPARISON: NONE HISTORY: Ascites. PROCEDURE: Maximal barrier technique was utilized. The skin overlying a suitable pocket of fluid was localized with ultrasound and the overlying skin was prepped and draped. Ultrasound was utilized with sterile technique. Lidocaine was used for local anesthesia and a skin salvador made with a scalpel. Catheter was advanced under direct ultrasound guidance into a suitable pocket of fluid and approximately 7 liters of ascites fluid were removed. Catheter was withdrawn and hemostasis achieved. There is no immediat e complication; the patient is discharged in stable condition. IMPRESSION: STATUS POST ULTRASOUND GUIDED PARACENTESIS FOR PALLIATION OF ASCITES. THIS PROCEDURE WA S PERFORMED BY THE UNDERSIGNED.
== END 2021-12-17 12:05 | disposition home or self-care (01) ==
LOC: RADPROMAIN 08:54
PROVIDERS: ATTEND Family Medicine
DX: R18.8 Other ascites (principal)
CPT/HCPCS: 82565; 85049; 85610; 36415; 49083; P9047

== ENCOUNTER 2022-01-06 12:27 | Day surgery (SDC) | payer MEDICARE ==
[2022-01-06 12:48] VITALS: RESP 16; TEMP 97.5
[2022-01-06 13:10] LABS: Mean Platelet Volume 8.2; Platelet Count 192 k/uL (150-450)
[2022-01-06 13:14] LABS: African American GFR (CKD) >90 (>60 ml/min/1.73 sqM); Non-African American GFR(CKD) 83 (>60 ml/min/1.73 sqM)
[2022-01-06 13:19] LABS: INR 1.1 (<1.2); Prothrombin Time 11.5 sec (9.0-12.0)
[2022-01-06] MEDS: ALBUMIN HUMAN 25% 50 ML in EMPTY BAG 1 BAG IVPB SCH ×4 (13:52→14:40)
[2022-01-06 15:07] VITALS: BP 142/89; PULSE 72
--- NOTE | 2022-01-06 15:46 | US ---
Ultrasound-guided paracentesis. DATE OF EXAM: 01/06/2022 CLINICAL HISTORY: Ascites The procedure was discussed with the patient. The risks, complications, benefits, and alternatives we re discussed and any questions were answered. Informed consent was obtained. The patient was placed s upine on the ultrasound table and prepped and draped in the usual sterile fashion. All elements of maximal barrier technique were utilized. Under ultrasound guidance, access into the right lower quadrant was obtained, via the paracentesis catheter system and direct ultrasound guidanc e. Approximately 10.2 liters of straw-colored fluid was removed. The patient was stable throughout the p rocedure and remained stable upon discharge from Department of Radiology. IMPRESSION: Successful paracentesis under ultrasound guidance.
== END 2022-01-06 15:20 | disposition home or self-care (01) ==
LOC: RADPROMAIN 12:27
PROVIDERS: ATTEND Family Medicine
DX: K74.60 Unspecified cirrhosis of liver (principal)
CPT/HCPCS: 82565; 85049; 85610; 36415; 49083; P9047

== ENCOUNTER 2022-01-27 12:54 | Day surgery (SDC) | payer MEDICARE ==
[2022-01-27 13:38] LABS: Mean Platelet Volume 9.2; Platelet Count 155 k/uL (150-450)
[2022-01-27 13:43] VITALS: TEMP 98.1
[2022-01-27 13:43] LABS: INR 1.1 (<1.2); Prothrombin Time 11.7 sec (9.0-12.0)
[2022-01-27] MEDS: ALBUMIN HUMAN 25% 50 ML in EMPTY BAG 1 BAG IVPB SCH ×4 (14:31→15:09)
[2022-01-27 16:03] VITALS: BP 93/61; PULSE 69; RESP 16
--- NOTE | 2022-02-08 07:59 | US ---
Ultrasound-guided paracentesis. DATE OF EXAM: 01/27/2022 CLINICAL HISTORY: Ascites The procedure was discussed with the patient. The risks, complications, benefits, and alternatives we re discussed and any questions were answered. Informed consent was obtained. The patient was placed s upine on the ultrasound table and prepped and draped in the usual sterile fashion. All elements of maximal barrier technique were utilized. Under ultrasound guidance, access into the right lower quadrant was obtained, via the paracentesis catheter system and direct ultrasound guidanc e. Approximately 12.3 liters of straw-colored fluid was removed. The patient was stable throughout the p rocedure and remained stable upon discharge from Department of Radiology. IMPRESSION: Successful paracentesis under ultrasound guidance.
== END 2022-01-27 15:55 | disposition home or self-care (01) ==
LOC: RADPROMAIN 12:54
PROVIDERS: ATTEND Family Medicine
DX: R18.8 Other ascites (principal)
CPT/HCPCS: 82565; 85049; 85610; 36415; 49083; P9047

== ENCOUNTER 2022-02-17 08:03 | Day surgery (SDC) | payer MEDICARE ==
[2022-02-17 08:47] LABS: Mean Platelet Volume 8.8; Platelet Count 174 k/uL (150-450)
[2022-02-17 09:10] VITALS: RESP 16; TEMP 97.6
[2022-02-17] MEDS: ALBUMIN HUMAN 25% 50 ML in EMPTY BAG 1 BAG IVPB SCH ×4 (09:10→10:04)
[2022-02-17 09:12] LABS: Prothrombin Time 11.1 sec (9.0-12.0)
[2022-02-17 11:09] VITALS: BP 101/67; PULSE 62
--- NOTE | 2022-02-17 11:25 | US ---
Ultrasound-guided paracentesis. DATE OF EXAM: 02/17/2022 CLINICAL HISTORY: Ascites The procedure was discussed with the patient. The risks, complications, benefits, and alternatives we re discussed and any questions were answered. Informed consent was obtained. The patient was placed s upine on the ultrasound table and prepped and draped in the usual sterile fashion. All elements of maximal barrier technique were utilized. Under ultrasound guidance, access into the right lower quadrant was obtained, via the paracentesis catheter system and direct ultrasound guidanc e. Approximately 11.6 liters of straw-colored fluid was removed. The patient was stable throughout the p rocedure and remained stable upon discharge from Department of Radiology. IMPRESSION: Successful paracentesis under ultrasound guidance.
== END 2022-02-17 11:10 | disposition home or self-care (01) ==
LOC: RADPROMAIN 08:03
PROVIDERS: ATTEND Family Medicine
DX: R18.8 Other ascites (principal)
CPT/HCPCS: 82565; 85049; 85610; 36415; 49083; P9047

== ENCOUNTER 2022-03-09 13:03 | Day surgery (SDC) | payer MEDICARE ==
[2022-03-09 13:34] VITALS: RESP 16; TEMP 97.2
[2022-03-09 13:35] LABS: Mean Platelet Volume 8.6; Platelet Count 191 k/uL (150-450)
[2022-03-09 13:59] LABS: INR 1.1 (<1.2); Prothrombin Time 11.4 sec (9.0-12.0)
[2022-03-09] MEDS: ALBUMIN HUMAN 25% 50 ML in EMPTY BAG 1 BAG IVPB SCH ×4 (14:08→14:56)
[2022-03-09 15:30] VITALS: BP 104/63; PULSE 63
--- NOTE | 2022-03-10 08:09 | US ---
EXAM: Ultrasound-guided Paracentesis DATE: 03/09/2022 4:14 PM REASON FOR EXAM: Ascites RADIOLOGIST: Dr. Garcia INSPECTION MACHINE TENDER: None ANESTHESIA: Local Lidocaine TECHNIQUE: I verify that I have discussed the potential benefits, risks, and side effects regarding this treatme nt/procedure, the likelihood of the patient achieving his or her goals, and the potential problems th at might occur during recuperation. I verify that I have explained the alternatives to the patient i ncluding the risks, benefits, and side effects related to the alternatives and the risks related to n ot receiving the operation/procedure/treatment. The patient/surrogate decision maker has had an oppo rtunity to ask and have questions answered. I have secured the patient's or the surrogate decision m nickie's consent prior to the operation/procedure/treatment. Patient was placed supine on ultrasound table and the lower abdomen was prepped and draped in usual s terile fashion. 1% lidocaine was infused into the skin and subcutaneous soft tissues to achieve local anesthesia. Under sonographic guidance a 5 F Yueh needle was advanced into the ascites. Approximat dexter 10,400 ml of clear yellow fluid was removed. FINDINGS: Sonographic images of the abdomen demonstrate a large amount of free fluid. IMPRESSION: Technically successful uncomplicated paracentesis.
== END 2022-03-09 15:45 | disposition home or self-care (01) ==
LOC: RADPROMAIN 13:03
PROVIDERS: ATTEND Family Medicine
DX: R18.8 Other ascites (principal)
CPT/HCPCS: 82565; 85049; 85610; 36415; 49083; P9047

== ENCOUNTER 2022-03-31 13:02 | Day surgery (SDC) | payer MEDICARE ==
[2022-03-31 13:33] VITALS: TEMP 97.7
[2022-03-31 13:33] LABS: Mean Platelet Volume 8.5; Platelet Count 185 k/uL (150-450)
[2022-03-31 13:44] LABS: INR 1.1 (<1.2); Prothrombin Time 11.6 sec (9.0-12.0)
[2022-03-31] MEDS: ALBUMIN HUMAN 25% 50 ML in EMPTY BAG 1 BAG IVPB SCH ×4 (14:13→15:04)
[2022-03-31 16:03] VITALS: BP 104/62; PULSE 76; RESP 16
--- NOTE | 2022-04-01 08:53 | US ---
Ultrasound-guided paracentesis. DATE OF EXAM: 03/31/2022 CLINICAL HISTORY: Ascites The procedure was discussed with the patient. The risks, complications, benefits, and alternatives we re discussed and any questions were answered. Informed consent was obtained. The patient was placed s upine on the ultrasound table and prepped and draped in the usual sterile fashion. All elements of maximal barrier technique were utilized. Under ultrasound guidance, access into the right lower quadrant was obtained, via the paracentesis catheter system and direct ultrasound guidanc e. Approximately 12.4 liters of straw-colored fluid was removed. The patient was stable throughout the p rocedure and remained stable upon discharge from Department of Radiology. IMPRESSION: Successful paracentesis under ultrasound guidance.
== END 2022-03-31 15:55 | disposition home or self-care (01) ==
LOC: RADPROMAIN 13:02
PROVIDERS: ATTEND Family Medicine
DX: R18.8 Other ascites (principal)
CPT/HCPCS: 82565; 85049; 85610; 36415; 49083; P9047

== ENCOUNTER 2022-04-19 12:14 | Day surgery (SDC) | payer MEDICARE ==
[2022-04-19 13:25] VITALS: RESP 18; TEMP 98
[2022-04-19 13:33] LABS: Mean Platelet Volume 8.5; Platelet Count 198 k/uL (150-450)
[2022-04-19 14:27] LABS: INR 1.1 (<1.2); Prothrombin Time 11.4 sec (9.0-12.0)
[2022-04-19] MEDS: ALBUMIN HUMAN 25% 50 ML in EMPTY BAG 1 BAG IVPB SCH ×4 (14:28→15:24)
[2022-04-19 16:16] VITALS: BP 106/60; PULSE 70
--- NOTE | 2022-04-20 07:40 | US ---
Ultrasound-guided paracentesis. DATE OF EXAM: 04/19/2022 CLINICAL HISTORY: Ascites The procedure was discussed with the patient. The risks, complications, benefits, and alternatives we re discussed and any questions were answered. Informed consent was obtained. The patient was placed s upine on the ultrasound table and prepped and draped in the usual sterile fashion. All elements of maximal barrier technique were utilized. Under ultrasound guidance, access into the right lower quadrant was obtained, via the paracentesis catheter system and direct ultrasound guidanc e. Approximately 9.8 liters of straw-colored fluid was removed. The patient was stable throughout the pr ocedure and remained stable upon discharge from Department of Radiology. IMPRESSION: Successful paracentesis under ultrasound guidance.
== END 2022-04-19 16:00 | disposition home or self-care (01) ==
LOC: RADPROMAIN 12:14
PROVIDERS: ATTEND Family Medicine
DX: R18.8 Other ascites (principal)
CPT/HCPCS: 82565; 85049; 85610; 36415; 49083; P9047

== ENCOUNTER 2022-05-10 12:24 | Day surgery (SDC) | payer MEDICARE ==
[2022-05-10 12:48] VITALS: RESP 16; TEMP 95.5
[2022-05-10 12:52] LABS: HCT 34.7 % (39.0-53.0); HGB 11.4 gm/dL (13.0-17.5); MCH 31.7 pg (25.0-35.0); MCHC 32.9 g/dL (31.0-37.0); MCV 96.4 fL (80.0-100.0); Mean Platelet Volume 8.3; Platelet Count 199 k/uL (150-450); Poikilocytosis Slight; RDW 15.7 % (11.5-15.5); WBC 3.2 k/uL (3.8-10.6)
[2022-05-10 13:07] LABS: INR 1.1 (<1.2); Prothrombin Time 11.4 sec (9.0-12.0)
[2022-05-10 13:10] LABS: Albumin 3.8 g/dL (3.5-5.0); Calcium 8.5 mg/dL (8.4-10.2); Potassium 3.7 mmol/L (3.5-5.1); Total Protein 6.3 g/dL (6.3-8.2)
[2022-05-10 13:16] LABS: Band Neutrophils % 2 %; Eosinophils # (M) 0.06 k/uL (0-0.7); Lymphocytes # (M) 0.64 k/uL (1.0-4.8); Metamyelocytes # (M) 0.06 k/uL (0); Metamyelocytes % 2 %; Monocytes # (M) 0.38 k/uL (0-1.0); Myelocytes # (M) 0.06 k/uL (0); Myelocytes % 2 %; Neutrophils % (M) 62 %; Nucleated Red Blood Cells 0 /100 WBC (0-0); Total Cells Counted 200
[2022-05-10] MEDS: ALBUMIN HUMAN 25% 50 ML in EMPTY BAG 1 BAG IVPB SCH ×4 (13:46→14:35)
--- NOTE | 2022-05-10 14:16 | US ---
Ultrasound-guided paracentesis. DATE OF EXAM: 05/10/2022 CLINICAL HISTORY: Ascites The procedure was discussed with the patient. The risks, complications, benefits, and alternatives we re discussed and any questions were answered. Informed consent was obtained. The patient was placed s upine on the ultrasound table and prepped and draped in the usual sterile fashion. All elements of maximal barrier technique were utilized. Under ultrasound guidance, access into the right lower quadrant was obtained, via the paracentesis catheter system and direct ultrasound guidanc e. Approximately 9.7 liters of straw-colored fluid was removed. The patient was stable throughout the pr ocedure and remained stable upon discharge from Department of Radiology. IMPRESSION: Successful paracentesis under ultrasound guidance.
[2022-05-10 15:05] VITALS: BP 95/62; PULSE 64
== END 2022-05-10 15:15 | disposition home or self-care (01) ==
LOC: RADPROMAIN 12:24
PROVIDERS: ATTEND Family Medicine
DX: R18.8 Other ascites (principal)
CPT/HCPCS: 80053; 85025; 85610; 36415; 49083; P9047

== ENCOUNTER 2022-07-14 12:27 | Day surgery (SDC) | payer MEDICARE ==
[2022-07-14 13:06] LABS: Platelet Count 176 k/uL (150-450)
[2022-07-14 13:13] LABS: INR 1.1 (<1.2); Prothrombin Time 11.9 sec (9.0-12.0)
[2022-07-14 13:18] LABS: African American GFR (CKD) >90 (>60 ml/min/1.73 sqM); Non-African American GFR(CKD) 84 (>60 ml/min/1.73 sqM)
[2022-07-14 13:48] VITALS: RESP 16; TEMP 98.5
[2022-07-14] MEDS: ALBUMIN HUMAN 25% 50 ML in EMPTY BAG 1 BAG IVPB SCH ×4 (14:11→14:58)
--- NOTE | 2022-07-14 14:35 | US ---
Ultrasound-guided paracentesis. DATE OF EXAM: 07/14/2022 CLINICAL HISTORY: Ascites The procedure was discussed with the patient. The risks, complications, benefits, and alternatives we re discussed and any questions were answered. Informed consent was obtained. The patient was placed s upine on the ultrasound table and prepped and draped in the usual sterile fashion. All elements of maximal barrier technique were utilized. Under ultrasound guidance, access into the right lower quadrant was obtained, via the paracentesis catheter system and direct ultrasound guidanc e. The patient was stable throughout the procedure and remained stable upon discharge from Department of Radiology. IMPRESSION: Successful paracentesis under ultrasound guidance.
[2022-07-14 15:28] VITALS: BP 106/70; PULSE 70
== END 2022-07-14 15:20 | disposition home or self-care (01) ==
LOC: RADPROMAIN 12:27
PROVIDERS: ATTEND Family Medicine
DX: R18.8 Other ascites (principal)
CPT/HCPCS: 82565; 85049; 85610; 36415; 49083; P9047

== ENCOUNTER 2022-08-03 12:26 | Day surgery (SDC) | payer MEDICARE ==
[2022-08-03 12:54] LABS: Mean Platelet Volume 8.6; Platelet Count 155 k/uL (150-450)
[2022-08-03 13:05] LABS: African American GFR (CKD) >90 (>60 ml/min/1.73 sqM); Non-African American GFR(CKD) 84 (>60 ml/min/1.73 sqM)
[2022-08-03 13:23] LABS: INR 1.1 (<1.2); Prothrombin Time 11.1 sec (9.0-12.0)
[2022-08-03] MEDS: ALBUMIN HUMAN 25% 50 ML in EMPTY BAG 1 BAG IVPB SCH ×4 (13:51→15:03)
--- NOTE | 2022-08-03 14:13 | US ---
Ultrasound-guided paracentesis. DATE OF EXAM: 08/03/2022 CLINICAL HISTORY: Ascites The procedure was discussed with the patient. The risks, complications, benefits, and alternatives we re discussed and any questions were answered. Informed consent was obtained. The patient was placed s upine on the ultrasound table and prepped and draped in the usual sterile fashion. All elements of maximal barrier technique were utilized. Under ultrasound guidance, access into the right lower quadrant was obtained, via the paracentesis catheter system and direct ultrasound guidanc e. The patient was stable throughout the procedure and remained stable upon discharge from Department of Radiology. IMPRESSION: Successful paracentesis under ultrasound guidance.
[2022-08-03 14:14] VITALS: RESP 16; TEMP 97.9
[2022-08-03 15:02] VITALS: BP 103/70; PULSE 72
== END 2022-08-03 14:50 | disposition home or self-care (01) ==
LOC: RADPROMAIN 12:26
PROVIDERS: ATTEND Family Medicine
DX: R18.8 Other ascites (principal)
CPT/HCPCS: 82565; 85049; 85610; 36415; 49083; P9047

== ENCOUNTER 2022-08-24 12:24 | Day surgery (SDC) | payer MEDICARE ==
[2022-08-24 13:03] VITALS: TEMP 98
[2022-08-24 13:07] LABS: Mean Platelet Volume 8.1; Platelet Count 171 k/uL (150-450)
[2022-08-24 13:12] LABS: African American GFR (CKD) 89 (>60 ml/min/1.73 sqM); Non-African American GFR(CKD) 77 (>60 ml/min/1.73 sqM)
[2022-08-24 13:14] LABS: HGB 11.9 gm/dL (13.0-17.5); INR 1.1 (<1.2); MCH 32.9 pg (25.0-35.0); MCHC 33.2 g/dL (31.0-37.0); Macrocytosis Slight; Prothrombin Time 11.5 sec (9.0-12.0); RBC 3.63 m/uL (4.30-5.90); RDW 15.1 % (11.5-15.5); WBC 2.7 k/uL (3.8-10.6)
[2022-08-24 13:32] LABS: ALT 14 U/L (4-49); AST 23 U/L (17-59); Alkaline Phosphatase 146 U/L (38-126); Anion Gap 10 mmol/L; Blood Urea Nitrogen 20 mg/dL (9-20); Calcium 8.9 mg/dL (8.4-10.2); Carbon Dioxide 28 mmol/L (22-30); Chloride 97 mmol/L (98-107); Glucose 98 mg/dL (74-99); Potassium 4.1 mmol/L (3.5-5.1); Sodium 135 mmol/L (137-145); Total Bilirubin 0.8 mg/dL (0.2-1.3); Total Protein 6.3 g/dL (6.3-8.2)
[2022-08-24] MEDS: ALBUMIN HUMAN 25% 50 ML in EMPTY BAG 1 BAG IVPB SCH ×4 (13:54→14:45)
[2022-08-24 13:57] VITALS: RESP 16
[2022-08-24 14:48] VITALS: BP 98/59; PULSE 62
--- NOTE | 2022-08-24 15:27 | US ---
Ultrasound-guided paracentesis. DATE OF EXAM: 08/24/2022 CLINICAL HISTORY: Ascites The procedure was discussed with the patient. The risks, complications, benefits, and alternatives we re discussed and any questions were answered. Informed consent was obtained. The patient was placed s upine on the ultrasound table and prepped and draped in the usual sterile fashion. All elements of maximal barrier technique were utilized. Under ultrasound guidance, access into the right lower quadrant was obtained, via the paracentesis catheter system and direct ultrasound guidanc e. Approximately 5.9 liters of straw-colored fluid was removed. The patient was stable throughout the pr ocedure and remained stable upon discharge from Department of Radiology. IMPRESSION: Successful paracentesis under ultrasound guidance.
[2022-08-25 02:29] LABS: LDL Cholesterol,Calculated 96.8 mg/dL (0.0-131.0); VLDL Calculation 17.76 mg/dL (5.00-40.00)
== END 2022-08-24 14:45 | disposition home or self-care (01) ==
LOC: RADPROMAIN 12:24
PROVIDERS: ATTEND Family Medicine
DX: R18.8 Other ascites (principal)
CPT/HCPCS: 80061; 80053; 84443; 85027; 85049; 85610; 36415; 49083; P9047

== ENCOUNTER → 2022-09-09 | Outpatient (CLI) | payer MEDICARE ==
--- NOTE | 2022-09-12 15:12 | CT ---
EXAMINATION TYPE: CT abdomen pelvis wo con DATE OF EXAM: 09/09/2022 COMPARISON: 10/17/2020 HISTORY: 67-year-old male K40.23, hernia CT DLP: 921.6 mGycm. Automated exposure control for dose reduction was used. TECHNIQUE: Contiguous axial scanning of the abdomen and pelvis without IV contrast. Coronal and sagit harry reconstructions performed. FINDINGS: Heart is upper limits of normal in size without pericardial effusion. Lung bases clear without pleura l effusion. Nodular, cirrhotic morphology. Contrast limits assessment for focal lesions. Numerous small layering gallstones are no abnormal gallbladder distention. Adrenal glands and pancreas within normal limits. Splenomegaly at 21.3 cm on coronal images versus 22.6 cm, previously. Numerous bilateral parapelvic cysts measuring up to 3.7 cm. Many of these have enlarged in the interv al and show intermediate attenuation suggesting internal proteinaceous or hemorrhagic debris. Normal caliber to the bilateral ureters makes underlying hydronephrosis unlikely. A couple additional renal cortical cysts measuring up to 2.1 cm on the left. Mild atherosclerotic calcifications abdominal aorta. No dilated small bowel or free air. Oral contrast has progressed into the cecum. There is mild overal l stool burden. There is moderate to large abdominopelvic ascites, increased in the interval. Mild generalized anasar ca change. No evident abdominal or pelvic lymphadenopathy seen. There are moderate bilateral indirect inguinal hernias, left greater than right, containing fat and a scites fluid. Mild circumferential bladder wall thickening. Borderline sized prostate gland at 4.0 cm wide. Left-si ded pelvic phlebolith. Bones: Mild degenerative change of both hips and at the left SI joint. Advanced degenerative disc dis ease L5-S1 and facet arthropathy lower lumbar spine. Superior endplate Schmorl's node T12. IMPRESSION: 1. Cirrhosis with portal venous hypertension characterized by splenomegaly and enlarging, now moderat e to large abdominopelvic ascites. Note that the lack of IV contrast limits assessment for hepatoma. 2. Cholelithiasis. 3. Numerous bilateral parapelvic cysts measuring up to 3.7 cm, many of these have enlarged in the int erval and show intermediate attenuation suggesting either internal proteinaceous or hemorrhagic debri s. The normal caliber to the ureters makes underlying hydronephrosis unlikely. 4. Moderate-sized, left greater than right, bilateral indirect inguinal hernias containing both fat a nd ascites fluid.
== END | disposition home or self-care (01) ==
LOC: RADCTMAIN 11:05
PROVIDERS: ATTEND Family Medicine
DX: K40.20 Bilateral inguinal hernia, without obstruction or gangrene, not specified as recurrent (principal); K76.6 Portal hypertension; K74.60 Unspecified cirrhosis of liver; R18.8 Other ascites; K80.20 Calculus of gallbladder without cholecystitis without obstruction; N28.1 Cyst of kidney, acquired; R16.1 Splenomegaly, not elsewhere classified
CPT/HCPCS: 74176

== ENCOUNTER 2022-09-14 12:41 | Day surgery (SDC) | payer MEDICARE ==
[2022-09-14 13:13] VITALS: TEMP 97.8
[2022-09-14 13:26] LABS: Mean Platelet Volume 8.4; Platelet Count 165 k/uL (150-450)
[2022-09-14 13:39] LABS: African American GFR (CKD) 87 (>60 ml/min/1.73 sqM); Non-African American GFR(CKD) 75 (>60 ml/min/1.73 sqM)
[2022-09-14 13:43] LABS: INR 1.1 (<1.2); Prothrombin Time 11.5 sec (9.0-12.0)
[2022-09-14] MEDS: ALBUMIN HUMAN 25% 50 ML in EMPTY BAG 1 BAG IVPB SCH ×3 (14:13→14:49)
[2022-09-14 15:01] VITALS: BP 97/59; PULSE 66; RESP 16
--- NOTE | 2022-09-14 15:18 | US ---
Ultrasound-guided paracentesis. DATE OF EXAM: 09/14/2022 CLINICAL HISTORY: Ascites The procedure was discussed with the patient. The risks, complications, benefits, and alternatives we re discussed and any questions were answered. Informed consent was obtained. The patient was placed s upine on the ultrasound table and prepped and draped in the usual sterile fashion. All elements of maximal barrier technique were utilized. Under ultrasound guidance, access into the right lower quadrant was obtained, via the paracentesis catheter system and direct ultrasound guidanc e. Approximately 5.9 liters of straw-colored fluid was removed. The patient was stable throughout the pr ocedure and remained stable upon discharge from Department of Radiology. IMPRESSION: Successful paracentesis under ultrasound guidance.
== END 2022-09-14 14:50 | disposition home or self-care (01) ==
LOC: RADPROMAIN 12:41
PROVIDERS: ATTEND Family Medicine
DX: R18.8 Other ascites (principal)
CPT/HCPCS: 82565; 85049; 85610; 36415; 49083; P9047

== ENCOUNTER 2022-10-05 12:27 | Day surgery (SDC) | payer MEDICARE ==
[2022-10-05 12:55] LABS: Mean Platelet Volume 8.9; Platelet Count 150 k/uL (150-450)
[2022-10-05 12:59] VITALS: RESP 16; TEMP 97.4
[2022-10-05 13:01] LABS: INR 1.1 (<1.2); Prothrombin Time 11.7 sec (9.0-12.0)
[2022-10-05 13:16] LABS: African American GFR (CKD) 81 (>60 ml/min/1.73 sqM); Non-African American GFR(CKD) 70 (>60 ml/min/1.73 sqM)
[2022-10-05] MEDS: ALBUMIN HUMAN 25% 50 ML in EMPTY BAG 1 BAG IVPB SCH ×4 (14:00→14:45)
[2022-10-05 14:27] VITALS: PULSE 60
[2022-10-05 14:44] VITALS: BP 112/68
--- NOTE | 2022-10-06 08:53 | US ---
Ultrasound-guided paracentesis. DATE OF EXAM: May 31, 2022 CLINICAL HISTORY: Recurrent Ascites. Swelling and pain. Comparison: Most recent study September 14, 2022 Technique and findings: The procedure was discussed with the patient. The risks, complications, benefits, and alternatives we re discussed and any questions were answered. Informed consent was obtained. The patient was placed supine on the ultrasound table and prepped and draped in the usual sterile fas hion. All elements of maximal barrier technique were utilized. Under ultrasound guidance, access int o the right lower quadrant was obtained, via the paracentesis catheter system and direct ultrasound g uidance. Approximately 5.6 liters of straw-colored fluid was removed. The patient was stable throughout the pr ocedure and remained stable upon discharge from Department of Radiology. IMPRESSION: Successful therapeutic paracentesis under ultrasound guidance.
== END 2022-10-05 14:55 | disposition home or self-care (01) ==
LOC: RADPROMAIN 12:27
PROVIDERS: ATTEND Family Medicine
DX: R18.8 Other ascites (principal)
CPT/HCPCS: 82565; 85049; 85610; 36415; 49083; P9047

== ENCOUNTER 2022-11-16 12:32 | Day surgery (SDC) | payer MEDICARE ==
[2022-11-16 12:50] VITALS: RESP 16; TEMP 97.6
[2022-11-16 12:55] LABS: Platelet Count 161 k/uL (150-450)
[2022-11-16 13:03] LABS: INR 1.1 (<1.2); Prothrombin Time 11.4 sec (9.0-12.0)
[2022-11-16 13:30] LABS: African American GFR (CKD) 85 (>60 ml/min/1.73 sqM); Non-African American GFR(CKD) 74 (>60 ml/min/1.73 sqM)
[2022-11-16] MEDS: ALBUMIN HUMAN 25% 50 ML in EMPTY BAG 1 BAG IVPB SCH ×3 (13:37→14:09)
[2022-11-16 14:11] VITALS: BP 99/57; PULSE 47
--- NOTE | 2022-11-19 13:18 | US ---
EXAMINATION TYPE: US paracentesis abd w/image DATE OF EXAM: 11/16/2022 1:44 PM CLINICAL INDICATION:Male, 67 years old with history of K74.60 UNSPECIFIED CIRRHOSIS OF LIVER; COMPARISON: 10/26/2022 ATTENDING: Dr. Yehuda Jeong PROCEDURE: Informed consent was obtained. The risks of the procedure were extensively explained incl uding risk of damage to surrounding bowel with perforation and need for additional procedures. Proced ure was performed in the ultrasound procedure suite. Ultrasound imaging of the abdomen demonstrate as citic fluid. An appropriate access site was localized to the right lower abdomen. Timeout was taken p er protocol. The skin was prepped and draped in the usual sterile fashion and then locally anesthetiz ed with 1% lidocaine. The peritoneal cavity was then accessed via a 5-Greek one-step needle/cathete r. Approximately 4100 cc of clear straw-colored fluid was obtained. Postprocedural imaging of the ab domen demonstrate a minimal amount of abdominal fluid. Patient tolerated procedure well without immediate complication. Hemostasis at the procedural site w as obtained with a sterile bandage placed. The patient was monitored in the holding area following th e procedure and was subsequently discharged in stable condition. IMPRESSION: Ultrasound guided paracentesis, with approximately 4100 cc of clear straw-colored fluid drained. No immediate complications were evident.
== END 2022-11-16 14:20 | disposition home or self-care (01) ==
LOC: RADPROMAIN 12:32
PROVIDERS: ATTEND Family Medicine
DX: K74.60 Unspecified cirrhosis of liver (principal)
CPT/HCPCS: 82565; 85049; 85610; 49083; P9047

== ENCOUNTER 2022-12-07 12:37 | Day surgery (SDC) | payer MEDICARE ==
[2022-12-07 13:24] VITALS: TEMP 97.6
[2022-12-07 13:25] LABS: Mean Platelet Volume 8.5; Platelet Count 146 k/uL (150-450)
[2022-12-07 13:35] LABS: INR 1.1 (<1.2); Prothrombin Time 11.1 sec (9.0-12.0)
[2022-12-07 13:42] LABS: African American GFR (CKD) 86 (>60 ml/min/1.73 sqM); Non-African American GFR(CKD) 75 (>60 ml/min/1.73 sqM)
[2022-12-07] MEDS: ALBUMIN HUMAN 25% 50 ML in EMPTY BAG 1 BAG IVPB SCH ×2 (14:22→14:45)
[2022-12-07 14:29] VITALS: RESP 16
[2022-12-07 15:13] VITALS: BP 109/74; PULSE 52
--- NOTE | 2022-12-07 15:46 | US ---
Ultrasound-guided paracentesis. DATE OF EXAM: 12/07/2022 CLINICAL HISTORY: Ascites The procedure was discussed with the patient. The risks, complications, benefits, and alternatives we re discussed and any questions were answered. Informed consent was obtained. The patient was placed s upine on the ultrasound table and prepped and draped in the usual sterile fashion. All elements of maximal barrier technique were utilized. Under ultrasound guidance, access into the right lower quadrant was obtained, via the paracentesis catheter system and direct ultrasound guidanc e. Approximately 3 liters of straw-colored fluid was removed. The patient was stable throughout the proc edure and remained stable upon discharge from Department of Radiology. IMPRESSION: Successful paracentesis under ultrasound guidance.
== END 2022-12-07 14:50 | disposition home or self-care (01) ==
LOC: RADPROMAIN 12:37
PROVIDERS: ATTEND Family Medicine
DX: R18.8 Other ascites (principal)
CPT/HCPCS: 82565; 85049; 85610; 36415; 49083; P9047

== ENCOUNTER 2023-02-15 12:33 | Day surgery (SDC) | payer MEDICARE ==
[2023-02-15 13:34] VITALS: RESP 18; TEMP 98.4
[2023-02-15 13:37] LABS: Mean Platelet Volume 8.6; Platelet Count 164 k/uL (150-450)
[2023-02-15 13:39] LABS: African American GFR (CKD) >90 (>60 ml/min/1.73 sqM); Non-African American GFR(CKD) 82 (>60 ml/min/1.73 sqM)
[2023-02-15 14:09] LABS: INR 1.1 (<1.2); Prothrombin Time 12.2 sec (10.0-12.5)
[2023-02-15] MEDS: ALBUMIN HUMAN 25% 50 ML in EMPTY BAG 1 BAG IVPB SCH ×2 (14:42→15:09)
[2023-02-15 15:13] VITALS: BP 105/70; PULSE 69
--- NOTE | 2023-02-15 15:43 | US ---
Ultrasound-guided paracentesis. DATE OF EXAM: 02/15/2023 CLINICAL HISTORY: Ascites The procedure was discussed with the patient. The risks, complications, benefits, and alternatives we re discussed and any questions were answered. Informed consent was obtained. The patient was placed s upine on the ultrasound table and prepped and draped in the usual sterile fashion. All elements of maximal barrier technique were utilized. Under ultrasound guidance, access into the right lower quadrant was obtained, via the paracentesis catheter system and direct ultrasound guidanc e. Approximately 3.2 liters of straw-colored fluid was removed. The patient was stable throughout the pr ocedure and remained stable upon discharge from Department of Radiology. IMPRESSION: Successful paracentesis under ultrasound guidance.
== END 2023-02-15 14:55 | disposition home or self-care (01) ==
LOC: RADPROMAIN 12:33
PROVIDERS: ATTEND Family Medicine
DX: R18.8 Other ascites (principal)
CPT/HCPCS: 36415; 49083; 82565; 85049; 85610

== ENCOUNTER 2023-02-20 11:06 | Inpatient (IN) | payer MEDICARE ==
--- NOTE | 2023-02-20 11:42 | ED ---
General Adult HPI - General Chief complaint: Urogenital Stated complaint: Abd Pain Time Seen by Provider: 02/20/23 11:10 Source: patient, EMS, RN notes reviewed, old records reviewed Mode of arrival: EMS - History of Present Illness Initial comments: This is 67-year-old male who presents emergency Department with chronic left inguinal hernia. Patient states this morning there hernia is causing quite a bit of pain and there is quite a bit of his intestines in his scrotum at this time. Patient states she's unable to reduce it but touching it causes him severe pain. Patient states he's supposed to be getting a surgery for this in March but he doesn't think he can wait any longer because every time he stands up it comes out. Patient denies any fever chills per patient has a vomiting diarrhea. - Related Data Home Medications Medication Instructions Recorded Confirmed HYDROcodone/APAP 10-325MG [[place] 1 tab PO QID 07/05/17 02/20/23 10-325] Furosemide [Lasix] 40 mg PO DAILY 08/12/20 02/20/23 Levothyroxine Sodium [Synthroid] 100 mcg PO DAILY 10/14/20 02/20/23 Omeprazole 40 mg PO DAILY 10/14/20 02/20/23 Albuterol Inhaler [Ventolin Hfa 2 puff INHALATION RT-QID PRN 02/10/21 02/20/23 Inhaler] Spironolactone 200 mg PO DAILY 03/06/21 02/20/23 nadoloL [Corgard] 40 mg PO DAILY 07/14/21 02/20/23 Amoxic-Pot Clav 875-125Mg 1 tab PO Q12H 02/20/23 02/20/23 [Augmentin 875-125] NIFEdipine XL [Procardia Xl] 30 mg PO DAILY 02/20/23 02/20/23 lidocaine HCL [lidocaine HCL 5 ml MUCOUS MEM QID PRN 02/20/23 02/20/23 Viscous] Allergies Allergy/AdvReac Type Severity Reaction Status Date / Time cholesterol meds AdvReac Mild See Uncoded 02/20/23 12:13 comments Review of Systems ROS Statement: Those systems with pertinent positive or pertinent negative responses have been documented in the HPI. ROS Other: All systems not noted in ROS Statement are negative. Past Medical History Past Medical History: Atrial Fibrillation, Heart Failure, COPD, GI Bleed, Hyper tension, Osteoarthritis (OA), Pneumonia, Thyroid Disorder Additional Past Medical History / Comment(s): ETOH abuse, pancytopenia, anemia with transfusions, liver cirrhosis, portal hypertension, ascities/paracentesis, upper GI bleed, AV malformations, duodenal/jejunal ectasia, gastropathy, hemorrhoids, pollyps, paroxysmal Afib, moderate to severe mitral regurgitation, chronic diastolic CHF, vertigo, past Dimas's palsy, chronic low back pain/spinal stenosis, hypothyroid. History of Any Multi-Drug Resistant Organisms: None Reported Past Surgical History: Hernia Repair Additional Past Surgical History / Comment(s): Multiple large volume paracentesis, CARROLL/cardioversion, EGDs, colonoscopies/polypectomy, SB enteroscopy, R thigh fatty tumor removed, epidural low back injections, abdominal hernia repair. Past Anesthesia/Blood Transfusion Reactions: No Reported Reaction Past Psychological History: Anxiety Smoking Status: Former smoker Past Alcohol Use History: Occasional Past Drug Use History: None Reported - Past Family History Father Family Medical History: Hypertension Additional Family Medical History / Comment(s): heart valve replacements. General Exam - General Exam Comments Initial Comments: GENERAL: Patient is well-developed and well-nourished. Patient is nontoxic and well- hydrated and is in moderate distress. ENT: Neck is soft and supple. No significant lymphadenopathy is noted. Oropharynx is clear. Moist mucous membranes. Neck has full range of motion without eliciting any pain. EYES: The sclera were anicteric and conjunctiva were pink and moist. Extraocular movements were intact and pupils were equal round and reactive to light. Eyelids were unremarkable. PULMONARY: Unlabored respirations. Good breath sounds bilaterally. No audible rales rhonchi or wheezing was noted. CARDIOVASCULAR: There is a regular rate and rhythm without any murmurs gallops or rubs. ABDOMEN: Soft and nontender with normal bowel sounds. Patient had a large incarcerated left inguinal hernia SKIN: Skin is clear with no lesions or rashes and otherwise unremarkable. NEUROLOGIC: Patient is alert and oriented x3. Cranial nerves II through XII are grossly intact. Motor and sensory are also intact. Normal speech, volume and content. Symmetrical smile. MUSCULOSKELETAL: Normal extremities with adequate strength and full range of motion. No lower extremity swelling or edema. No calf tenderness. LYMPHATICS: No significant lymphadenopathy is noted PSYCHIATRIC: Normal psychiatric evaluation. Course Vital Signs 11/12/23 11:08 Temperature 98.1 F Pulse Rate 71 Respiratory 18 Rate Blood Pressure 117/78 O2 Sat by Pulse 94 L Oximetry Medical Decision Making - Medical Decision Making EKG was interpreted by myself. EKG shows atrial for ablation 61 bpm QRS is 89 QT interval 416 QTC is 420. Patient's EKG shows no ST segment elevation or depression. Patient's old EKG also showed atrial fibrillation. Was pt. sent in by a medical professional or institution (, PA, CONSUMER SALES REPRESENTATIVE, urgent care, hospital, or fdc...) When possible be specific @ -No Did you speak to anyone other than the patient for history (EMS, parent, family, police, friend...)? What history was obtained from this source @ -No Did you review nursing and triage notes (agree or disagree)? Why? @ -I reviewed and agree with nursing and triage notes Were old charts reviewed (outside hosp., previous admission, EMS record, old EKG, old radiological studies, urgent care reports/EKG's, fdc records)? Report findings @ -I reviewed prior charts from prior lab work on this patient Differential Diagnosis (chest pain, altered mental status, abdominal pain women, abdominal pain men, vaginal bleeding, weakness, fever, dyspnea, syncope, headache, dizziness, GI bleed, back pain, seizure, CVA, palpatations, mental health, musculoskeletal)? @ -Differential Abdominal Pain Men: Appendicitis, cholecystitis, diverticulosis, ischemic bowel, pancreatitis, hepatitis, UTI, gastroenteritis, AAA, incarcerated hernia, bowel obstruction, constipation, inflammatory bowel, hepatitis, peptic ulcer disease, splenic inf arction, perforated viscus, testicular torsion, this is not meant to be an all- inclusive list EKG interpreted by me (3pts min.). @ -As above X-rays interpreted by me (1pt min.). @ -None done CT interpreted by me (1pt min.). @ -None done U/S interpreted by me (1pt. min.). @ -None done What testing was considered but not performed or refused? (CT, X-rays, U/S, labs)? Why? @ -None What meds were considered but not given or refused? Why? @ -None Did you discuss the management of the patient with other professionals (professionals i.e. , PA, CONSUMER SALES REPRESENTATIVE, lab, RT, psych nurse, manager social, clinical unit educator, teacher, building drafting officer, clinical case manager)? Give summary @ -I spoke with Dr. Hardy and Dr. worthington about this patient patient will be admitted to [facility] with a consult Dr. Hardy Was smoking cessation discussed for >3mins.? @ -No Was critical care preformed (if so, how long)? @ -No Were there social determinants of health that impacted care today? How? (Homelessness, low income, unemployed, alcoholism, drug addiction, transportation, low edu. Level, literacy, decrease access to med. care, fci, rehab)? @ -No Was there de-escalation of care discussed even if they declined (Discuss DNR or withdrawal of care, Hospice)? DNR status @ -No What co-morbidities impacted this encounter? (DM, HTN, Smoking, COPD, CAD, Cancer, CVA, ARF, Chemo, Hep., AIDS, mental health diagnosis, sleep apnea, morbid obesity)? @ -None Was patient admitted / discharged? Hospital course, mention meds given and route, prescriptions, significant lab abnormalities, going to OR and other pertinent info. @ -I went and examined the patient he had an incarcerated hernia I put the patient in Trendelenburg and using some countertraction and pressure and eventually was able to reduce the hernia at this point time I spoke with Dr. Salome Aj she wanted the patient to be admitted so that he can be medically cleared for surgery Undiagnosed new problem with uncertain prognosis? @ -No Drug Therapy requiring intensive monitoring for toxicity (Heparin, Nitro, Insulin, Cardizem)? @ -No Were any procedures done? @ -No Diagnosis/symptom? @ -Incarcerated left inguinal hernia Acute, or Chronic, or Acute on Chronic? @ -Acute Uncomplicated (without systemic symptoms) or Complicated (systemic symptoms)? @ -complicated no Side effects of treatment? @ -No Exacerbation, Progression, or Severe Exacerbation? @ -No Poses a threat to life or bodily function? How? (Chest pain, USA, MS, pneumonia, PE, COPD, DKA, ARF, appy, cholecystitis, CVA, Diverticulitis, Homicidal, Suicidal, threat to staff... and all critical care pts) @ -Yes this could lead to a strain related hernia bowel ischemia sepsis and - Lab Data Result diagrams: 02/20/23:36 02/20/23 11:36 Lab Results 02/20/23 02/20/23 02/20/23 Range/Units 11:36 11:36 11:36 WBC 4.7 (3.8-10.6) k/uL RBC 3.42 L (4.30-5.90) m/uL Hgb 11.3 L (13.0-17.5) gm/dL Hct 34.3 L (39.0-53.0) % MCV 100.4 H (80.0-100.0) fL MCH 33.1 (25.0-35.0) pg MCHC 32.9 (31.0-37.0) g/dL RDW 15.3 (11.5-15.5) % Plt Count 170 (150-450) k/uL MPV 9.0 Neutrophils % (Manual) 64 % Band Neuts % (Manual) 4 % Lymphocytes % (Manual) 12 % Monocytes % (Manual) 5 % Eosinophils % (Manual) 2 % Metamyelocytes % 7 % Myelocytes % 8 % Neutrophils # (Manual) 3.10 (1.3-7.7) k/uL Lymphocytes # (Manual) 0.56 L (1.0-4.8) k/uL Monocytes # (Manual) 0.24 (0-1.0) k/uL Eosinophils # (Manual) 0.09 (0-0.7) k/uL Metamyelocytes # (Man) 0.33 H (0) k/uL Myelocytes # (Manual) 0.38 H (0) k/uL Nucleated RBCs 0 (0-0) /100 WBC Manual Slide Review Performed Poikilocytosis Slight Macrocytosis Slight PT 11.5 (10.0-12.5) sec INR 1.1 (<1.2) APTT 26.1 (22.0-30.0) sec Sodium 139 (137-145) mmol/L Potassium 3.7 (3.5-5.1) mmol/L Chloride 102 (98-107) mmol/L Carbon Dioxide 25 (22-30) mmol/L Anion Gap 12 mmol/L BUN 16 (9-20) mg/dL Creatinine 0.82 (0.66-1.25) mg/dL Est GFR (CKD-EPI)AfAm >90 (>60 ml/min/1.73 sqM) Est GFR (CKD-EPI)NonAf >90 (>60 ml/min/1.73 sqM) Glucose 103 H (74-99) mg/dL Calcium 9.2 (8.4-10.2) mg/dL Total Bilirubin 0.8 (0.2-1.3) mg/dL AST 23 (17-59) U/L ALT 17 (4-49) U/L Alkaline Phosphatase 172 H (38-126) U/L Total Protein 6.4 (6.3-8.2) g/dL Albumin 4.0 (3.5-5.0) g/dL Disposition Clinical Impression: Incarcerated hernia Disposition: ADMITTED IP TO THIS [facility] Time of Disposition: 11:42
[2023-02-20] MEDS ORDERED: SODIUM CHLORIDE 0.9% 1,000 ML IV ONE (11:43)
--- NOTE | 2023-02-20 11:58 | P.GSCN ---
History of Present Illness Consult date: 02/20/23 History of present illness: Has recurrent bilateral inguinal hernias, left greater than right with recent incarceration of small bowel. Due to high risk of recurrent obstruction with strangulation. Admission advised with optimization for surgery including cardiac clearance, medical management. Recommend repeat CT of the abdomen for severity of pulmonary hypertension and cirrhosis. Past Medical History Past Medical History: Atrial Fibrillation, Heart Failure, COPD, GI Bleed, Hypertension, Osteoarthritis (OA), Pneumonia, Thyroid Disorder Additional Past Medical History / Comment(s): ETOH abuse, pancytopenia, anemia with transfusions, liver cirrhosis, portal hypertension, ascities/paracentesis, upper GI bleed, AV malformations, duodenal/jejunal ectasia, gastropathy, hemorrhoids, pollyps, paroxysmal Afib, moderate to severe mitral regurgitation, chronic diastolic CHF, vertigo, past Dimas's palsy, chronic low back pain/spinal stenosis, hypothyroid. History of Any Multi-Drug Resistant Organisms: None Reported Past Surgical History: Hernia Repair Additional Past Surgical History / Comment(s): Multiple large volume par acentesis, CARROLL/cardioversion, EGDs, colonoscopies/polypectomy, SB enteroscopy, R thigh fatty tumor removed, epidural low back injections, abdominal hernia repair. Past Anesthesia/Blood Transfusion Reactions: No Reported Reaction Past Psychological History: Anxiety Smoking Status: Former smoker Past Alcohol Use History: Occasional Past Drug Use History: None Reported - Past Family History Father Family Medical History: Hypertension Additional Family Medical History / Comment(s): heart valve replacements. Medications and Allergies Home Medications Medication Instructions Recorded Confirmed Type HYDROcodone/APAP 10-325MG [[place] 1 tab PO QID PRN 07/05/17 02/16/23 History 10-325] Furosemide [Lasix] 40 mg PO DAILY 08/12/20 02/16/23 History Levothyroxine Sodium [Synthroid] 100 mcg PO DAILY 10/14/20 02/16/23 History Omeprazole 40 mg PO DAILY 10/14/20 02/16/23 History Albuterol Inhaler [Ventolin Hfa 2 puff INHALATION RT-QID PRN 02/10/21 02/16/23 History Inhaler] Spironolactone 100 mg PO DAILY 03/06/21 02/16/23 History nadoloL [Corgard] 40 mg PO DAILY 07/14/21 02/16/23 History Magnesium Oxide [Mag-Ox] 400 mg PO DAILY 01/27/22 02/16/23 History Allergies Allergy/AdvReac Type Severity Reaction Status Date / Time cholesterol meds AdvReac Mild See Uncoded 02/16/23 08:50 comments Surgical - Exam Vital Signs Temp Pulse Resp BP Pulse Ox 98.1 F 71 18 117/78 94 L 02/20/23 11:08 02/20/23 11:08 02/20/23 11:08 02/20/23 11:08 02/20/23 11:08
[2023-02-20] MEDS ORDERED: IOPAMIDOL CONTRAST (ORAL USE) VIAL PO PRN (12:05)
[2023-02-20 12:11] LABS: HCT 34.3 % (39.0-53.0); HGB 11.3 gm/dL (13.0-17.5); MCH 33.1 pg (25.0-35.0); MCHC 32.9 g/dL (31.0-37.0); MCV 100.4 fL (80.0-100.0); Macrocytosis Slight; Platelet Count 170 k/uL (150-450); Poikilocytosis Slight; RBC 3.42 m/uL (4.30-5.90); RDW 15.3 % (11.5-15.5); WBC 4.7 k/uL (3.8-10.6)
[2023-02-20] MEDS ORDERED: ALBUTEROL NEBULIZED 2.5 MG/3 ML INHALATION PRN (12:18)
[2023-02-20 12:23] LABS: ALT 17 U/L (4-49); AST 23 U/L (17-59); African American GFR (CKD) >90 (>60 ml/min/1.73 sqM); Alkaline Phosphatase 172 U/L (38-126); Anion Gap 12 mmol/L; Blood Urea Nitrogen 16 mg/dL (9-20); Calcium 9.2 mg/dL (8.4-10.2); Carbon Dioxide 25 mmol/L (22-30); Chloride 102 mmol/L (98-107); Glucose 103 mg/dL (74-99); Non-African American GFR(CKD) >90 (>60 ml/min/1.73 sqM); Potassium 3.7 mmol/L (3.5-5.1); Sodium 139 mmol/L (137-145); Total Bilirubin 0.8 mg/dL (0.2-1.3); Total Protein 6.4 g/dL (6.3-8.2)
--- NOTE | 2023-02-20 12:24 | XR ---
EXAMINATION TYPE: XR chest 2V DATE OF EXAM: 02/20/2023 12:04 PM CLINICAL INDICATION:Male, 67 years old with history of Difficulty breathing ; [facility] COMPARISON: Chest radiographs from 06/25/2021. TECHNIQUE: XR chest 2V Frontal and lateral views of the chest. FINDINGS: Lungs/Pleura: There is no evidence of pleural effusion, focal consolidation, or pneumothorax. Pulmonary vascularity: Unremarkable. Heart/mediastinum: Cardiomediastinal silhouette is unremarkable. Musculoskeletal: No acute osseous pathology. IMPRESSION: No acute cardiopulmonary disease/process.
[2023-02-20 12:30] LABS: INR 1.1 (<1.2); Partial Thromboplastin Time 26.1 sec (22.0-30.0); Prothrombin Time 11.5 sec (10.0-12.5)
[2023-02-20] MEDS: AMOXIC-POT CLAV 875-125MG 1 EACH TAB PO SCH ×2 (12:38→20:59)
[2023-02-20 12:49] LABS: Band Neutrophils % 4 %; Eosinophils # (M) 0.09 k/uL (0-0.7); Lymphocytes # (M) 0.56 k/uL (1.0-4.8); Metamyelocytes # (M) 0.33 k/uL (0); Metamyelocytes % 7 %; Monocytes # (M) 0.24 k/uL (0-1.0); Myelocytes # (M) 0.38 k/uL (0); Myelocytes % 8 %; Neutrophils % (M) 64 %; Nucleated Red Blood Cells 0 /100 WBC (0-0); Total Cells Counted 200
--- NOTE | 2023-02-20 13:17 | P.HPIM ---
History of Present Illness This is a pleasant 67 years old male with past medical history of Atrial Fibrillation, Heart Failure, COPD, GI Bleed, Hypertension, Osteoarthritis (OA), hypothyroidism, liver cirrhosis, portal hypertension, history of GI bleed Patient presents because of recurrent large left inguinal hernia which were difficult for him to reduce and push it back but this was done by emergency room physician. Currently his inguinal hernias minimal and reduce in a Place. However the decision was to admit him to the hospital to be followed by surgery team for possible hernia repair decrease the chances of hernia incarceration. He was scheduled on 1216 for hernia repair as an outpatient prior to this. Currently he denies any other symptoms. No chest pain or dyspnea. No abdominal pain vomiting or diarrhea. No urinary complaints. No headache weakness numbness or tingling. He used to smoke half pack per day and he quit 1 week ago. He quit drinking alcohol about 2 years ago and no illicit drugs. Patiently wound recently to urgent care last Tuesday for tooth infection and is currently placed on Augmentin. vitals stable labs Reviewed, the biopsy 4.7, hemoglobin 11.3. Platelet count is normal at 170. bmp , liver enz and inr are reviewed and look unremarkable Chest x-ray reviewed by me showing mildly hyperinflated chest looking chronic stable COPD changes with no acute process. per Radiologist no acute process as well Review of Systems Review of systems CONSTITUTIONAL: No fever, no malaise, no fatigue. HEENT: No recent visual problems or hearing problems. Denied any sore throat. CARDIOVASCULAR: No orthopnea, PND, no palpitations, no syncope. PULMONARY: No shortness of breath, no cough, no hemoptysis. GASTROINTESTINAL: No diarrhea, no nausea, no vomiting, no abdominal pain. Normoactive bowel sounds. NEUROLOGICAL: No headaches, no weakness, no numbness. HEMATOLOGICAL: Denies any bleeding or petechiae. GENITOURINARY: Denies any burning micturition, frequency, or urgency. MUSCULOSKELETAL/RHEUMATOLOGICAL: Denies any joint pain, swelling, or any muscle pain. ENDOCRINE: Denies any polyuria or polydipsia. Past Medical History Past Medical History: Atrial Fibrillation, Heart Failure, COPD, GI Bleed, Hypertension, Osteoarthritis (OA), Pneumonia, Thyroid Disorder Additional Past Medical History / Comment(s): ETOH abuse, pancytopenia, anemia with transfusions, liver cirrhosis, portal hypertension, ascities/paracentesis, upper GI bleed, AV malformations, duodenal/jejunal ectasia, gastropathy, hemorrhoids, pollyps, paroxysmal Afib, moderate to severe mitral regurgitation, chronic diastolic CHF, vertigo, past Dimas's palsy, chronic low back pain/spinal stenosis, hypothyroid. History of Any Multi-Drug Resistant Organisms: None Reported Past Surgical History: Hernia Repair Additional Past Surgical History / Comment(s): Multiple large volume paracentesis, CARROLL/cardioversion, EGDs, colonoscopies/polypectomy, SB enteroscopy, R thigh fatty tumor removed, epidural low back injections, abdominal hernia repair. Past Anesthesia/Blood Transfusion Reactions: No Reported Reaction Past Psychological History: Anxiety Smoking Status: Former smoker Past Alcohol Use History: Occasional Past Drug Use History: None Reported - Past Family History Father Family Medical History: Hypertension Additional Family Medical History / Comment(s): heart valve replacements. Medications and Allergies Home Medications Medication Instructions Recorded Confirmed Type HYDROcodone/APAP 10-325MG [[place] 1 tab PO QID 07/05/17 02/20/23 History 10-325] Furosemide [Lasix] 40 mg PO DAILY 08/12/20 02/20/23 History Levothyroxine Sodium [Synthroid] 100 mcg PO DAILY 10/14/20 02/20/23 History Omeprazole 40 mg PO DAILY 10/14/20 02/20/23 History Albuterol Inhaler [Ventolin Hfa 2 puff INHALATION RT-QID PRN 02/10/21 02/20/23 History Inhaler] Spironolactone 200 mg PO DAILY 03/06/21 02/20/23 History nadoloL [Corgard] 40 mg PO DAILY 07/14/21 02/20/23 History Amoxic-Pot Clav 875-125Mg 1 tab PO Q12H 02/20/23 02/20/23 History [Augmentin 875-125] NIFEdipine XL [Procardia Xl] 30 mg PO DAILY 02/20/23 02/20/23 History lidocaine HCL [lidocaine HCL 5 ml MUCOUS MEM QID PRN 02/20/23 02/20/23 History Viscous] Allergies Allergy/AdvReac Type Severity Reaction Status Date / Time cholesterol meds AdvReac Mild See Uncoded 02/20/23 12:13 comments Physical Exam Vitals: Vital Signs Temp Pulse Resp BP Pulse Ox 02/20/23 11:08 98.1 F 71 18 117/78 94 L Intake and Output 02/19/23 02/20/23 02/20/23 22:59 06:59 14:59 Other: Weight 96.162 kg GENERAL: The patient is alert and oriented x3, not in any acute distress. Well developed, well nourished. HEENT: Pupils are round and equally reacting to light. EOMI. No scleral icterus. No conjunctival pallor. Normocephalic, atraumatic. No pharyngeal erythema. No thyromegaly. CARDIOVASCULAR: S1 and S2 present. No murmurs, rubs, or gallops. PULMONARY: Chest is clear to auscultation, no wheezing , no crackles. -ABDOMEN: Soft, nontender, nondistended, normoactive bowel sounds. No palpable organomegaly. Left inguinal hernia, reproducible currently MUSCULOSKELETAL: No joint swelling or deformity. EXTREMITIES: No cyanosis, clubbing, or pedal edema. NEUROLOGICAL: Gross neurological examination did not reveal any focal deficits. SKIN: No rashes. no petechiae. Results CBC & Chem 7: 02/20/23 11:36 02/20/23 11:36 Assessment and Plan Assessment: acute on chronic left inguinal hernia , s/p reduction in the emergency room Chronic atrial fibrillation, chronic diastolic failure COPD with no exacerbation History of GI bleed Hypertension History of osteoarthritis Hypothyroidism Alcoholic Liver cirrhosis with portal hypertension with history of ascites History of AV malformation and duodenal/jejunal ectasia History of gastropathy History of hemorrhoids Moderate to severe mitral regurgitation history of alcoholic abuse disorder History of vertigo chronic back pain. Hypothyroidism Plan: continue with close observationcontinue with normal saline 75 mL/h surgery team consult with his surgeon obtain cardiac given his extensive cardiac history and liver cirrhosis Labs and medication were reviewed.. Continue same treatment. Continue with symptomatic treatment. Resume home medication. Monitor labs and vitals. DVT and GI prophylaxis. Further recommendations as per clinical course of the patient DVT prophylaxis: Subcutaneous heparin GI Prophylaxis: Sasha st will resume the care of the pt tomorrow
[2023-02-20] MEDS: HYDROcodone/APAP 10-325MG 1 EACH TAB PO PRN ×2 (14:56→20:59)
[2023-02-20] MEDS: FAMOTIDINE 20 MG/2 ML VIAL IV SCH (20:59)
[2023-02-21] MEDS: LEVOTHYROXINE 100 MCG TAB PO SCH (06:01)
[2023-02-21] MEDS: SPIRONOLACTONE 25 MG TAB PO SCH (09:17)
[2023-02-21] MEDS: PANTOPRAZOLE 40 MG/10 ML VIAL IVP SCH (09:17)
[2023-02-21] MEDS: NIFEdipine XL 30 MG TAB.ER.24 PO SCH (09:17)
[2023-02-21] MEDS: AMOXIC-POT CLAV 875-125MG 1 EACH TAB PO SCH ×2 (09:17→20:47)
[2023-02-21] MEDS: FAMOTIDINE 20 MG/2 ML VIAL IV SCH ×2 (09:17→20:47)
[2023-02-21] MEDS: HYDROcodone/APAP 10-325MG 1 EACH TAB PO PRN ×3 (09:18→20:45)
[2023-02-21] MEDS: FUROSEMIDE 40 MG TAB PO SCH (09:18)
--- NOTE | 2023-02-21 09:42 | CT ---
EXAMINATION TYPE: CT abdomen pelvis w con CT DLP: 1210.3 mGycm, Automated exposure control for dose reduction was used. DATE OF EXAM: 02/21/2023 9:07 AM COMPARISON: CT abdomen pelvis most recent from 09/09/2022 . CLINICAL INDICATION:Male, 67 years old with history of Abdominal pain; Abdominal pain TECHNIQUE: Standard CT of the abdomen and pelvis following the administration of 100 cc of Isovue 3 00 IV contrast material and oral contrast. Coronal and sagittal reformats were performed. FINDINGS: LOWER CHEST: Visualized lung bases are clear. Mitral annulus calcifications. ABDOMEN LIVER: Cirrhotic appearance of the liver. Peripheral calcified granuloma identified. 7 mm right hepat ic dome enhancing focus identified (series 3, image 13). GALLBLADDER AND BILE DUCTS: Layering increased densities within the lumen consistent with gallstones are present. PANCREAS: Unremarkable. SPLEEN: Enlarged measuring 20.0 cm in CC dimension. ADRENAL GLANDS: Unremarkable. KIDNEYS AND URETERS: No evidence of hydronephrosis or renal calculus. The kidneys enhance symmetrical ly. Contrast imaging within both collecting systems on the delayed phase. Similar hyperdense masses w ithin the bilateral renal sinus lesions with largest on the right measuring 3.9 cm and largest on the left measuring 4.1 cm. These are progressed in size when compared to 202 exam. PELVIS BLADDER: Unremarkable REPRODUCTIVE: Unremarkable. ABDOMEN & PELVIS STOMACH AND BOWEL: Stomach and duodenum are unremarkable. Enteric contrast reaches the rectum. No abelino dence of bowel obstruction. PERITONEUM: No evidence of pneumoperitoneum. Small to moderate volume ascites. Increased size of 2.7 cm soft tissue nodule within the right paramedian S1 presacral region, previously 1.9 cm in 202. VASCULATURE: Mild atherosclerotic calcifications are present throughout the abdominal aorta and its b ranches. No evidence of aortic aneurysm. Pelvic phleboliths. MUSCULOSKELETAL: No acute osseous abnormalities. Mild disc degeneration changes are present throughou t the thoracolumbar spine. No aggressive osseous lesion. LYMPH NODES: Few prominent gastrohepatic ligament lymph nodes. Additional prominent danilo hepatic and portacaval lymph nodes redemonstrated. SOFT TISSUE/ABDOMINAL WALL: Fat filled right inguinal hernia with trace ascites. Left inguinal hernia containing ascites. IMPRESSION: 1. Hepatic cirrhosis with findings of portal hypertension including splenomegaly and small to modera te size volume ascites. Hyperdense 7 mm focus within the right hepatic dome concerning for possible h epatocellular carcinoma. Further evaluation with MR abdomen liver mass protocol is recommended. 2. Numerous bilateral parapelvic lesions redemonstrated. These are similar most recent exam 2022 but have increase in size from 202 exam. May represent hemorrhagic/proteinaceous cysts versus other etio logies. 3. Redemonstration of indeterminate right presacral soft tissue lesion which is stable from most rece nt exam in 2022 but has increased marginally in size from 2020 exam. 4. Stable prominent gastrohepatic/pleura hepatic and portacaval lymph nodes. 5. Cholelithiasis.
--- NOTE | 2023-02-21 11:50 | P.CRDCN ---
History of Present Illness Consult date: 02/21/23 History of present illness: History of present illness: This is a 67 year old male previously seen in the office by Dr. Daigle with last visit in 2020. He has a past medical history of pancytopenia, hypertension, history of chronic heavy alcohol use, chronic tobacco use, anemia, GI bleed, paroxysmal atrial fibrillation, moderate to severe mitral regurgitation, diastolic heart failure, pulmonary hypertension. We have been asked to evaluate the patient for atrial fibrillation and cardiac clearance. Regarding atrial fibrillation, patient has not been on anticoagulation due to GI bleed. Patient does understand that he is at increased risk for stroke without anticoagulation. Patient presented to the emergency center due to left inguinal hernia repair. He has been seen by general surgery and plan is for surgical intervention. Patient denies having any chest pain, no shortness of breath, no bleeding in stool, he denies having any and all lightheadedness or dizziness. Patient quit alcohol in 2021. EKG atrial fibrillation with ventricular rate of 61 Chest x-ray: No acute process CAT scan of the abdomen and pelvis with contrast revealed hepatic cirrhosis with portal hypertension, splenomegaly, small to moderate ascites, hyperdense lesion concerning for hepatocellular carcinoma. Numerous bilateral parapelvic lesions we demonstrated but increased in size. WBC 4.7, hemoglobin 0.3, platelet count 170. INR 1.1. Electrolytes normal. Creatinine 0.82. Liver function tests revealed alkaline phosphatase 172 otherwise are within normal limits. Home cardiac medications: Lasix 40 mg daily, nadolol 40 mg daily, Procardia XL 30 mg daily, spironolactone 200 mg daily. Review Of Systems: At the time of my evaluation: Constitutional: No fever, no chills. No weakness, fatigue or lethargy. EENT: No headache. No dizziness. Lungs: No shortness of breath, cough, no sputum production. No wheezing. Cardiovascular: No chest pain, no lower extremity edema. No palpitations. No paroxysmal nocturnal dyspnea. No orthopnea. No lightheadedness or dizziness. No syncopal episodes. Abdominal: + abdominal pain. No nausea, vomiting. No diarrhea. No co nstipation. No bloody or tarry stools. Musculoskeletal: No myalgias. No muscle weakness, no frequent falls. Integumentary: No wounds. No rash. No unusual bruising. Neurologic: No aphasia. No facial droop. No change in mentation. Physical examination: Gen: This is a 67-year-old male sitting at edge of the bed and appears to be comfortable and in no acute distress. VS: reviewed HEENT: Head is atraumatic, normocephalic. Pupils equal, round. Sclerae is anicteric. NECK: Supple. No JVD. LUNGS: Clear to auscultation. No wheezes or rhonchi. No intercostal retractions. HEART: Regular rate and rhythm. 3/6 systolic ejection murmur. ABDOMEN: Soft No tenderness. EXTREMITIES: No pedal edema. No calf tenderness. NEUROLOGICAL: Patient is awake, alert and oriented x3. Assessment: Inguinal hernia Hypertension Paroxysmal atrial fibrillation Moderate to severe mitral regurgitation Chronic diastolic heart failure Pulmonary hypertension History of heavy alcohol use Plan: Continue patient's home cardiac medications Patient is at moderate to high risk for complications in the perioperative period due to history of alcohol abuse, moderate to severe MR and pulmonary hypertension. Cautious fluid administration and good blood pressure control in the perioperative period is recommended. Patient is not currently on anticoagulation for atrial fibrillation due to bleeding in the past. Patient does understand the increased risk for stroke without anticoagulation. Obtain 2-D echocardiogram and Doppler study to assess cardiac structure and function Further recommendations to follow based upon clinical course Thank you kindly for this consultation. Nurse practitioner note has been reviewed, I agree with documented findings and plan of care. Patient was seen and examined. Past Medical History Past Medical History: Atrial Fibrillation, Heart Failure, COPD, GI Bleed, Hypertension, Osteoarthritis (OA), Pneumonia, Thyroid Disorder Additional Past Medical History / Comment(s): ETOH abuse, pancytopenia, anemia with transfusions, liver cirrhosis, portal hypertension, ascities/paracentesis, upper GI bleed, AV malformations, duodenal/jejunal ectasia, gastropathy, hemorrhoids, pollyps, paroxysmal Afib, moderate to severe mitral regurgitation, chronic diastolic CHF, vertigo, past Dimas's palsy, chronic low back pain/spinal stenosis, hypothyroid. History of Any Multi-Drug Resistant Organisms: None Reported Past Surgical History: Hernia Repair Additional Past Surgical History / Comment(s): Multiple large volume paracentesis, CARROLL/cardioversion, EGDs, colonoscopies/polypectomy, SB enteroscopy, R thigh fatty tumor removed, epidural low back injections, abdominal hernia repair. Past Anesthesia/Blood Transfusion Reactions: No Reported Reaction Past Psychological History: Anxiety Smoking Status: Current every day smoker Past Alcohol Use History: Occasional Additional Past Alcohol Use History / Comment(s): Pt states started smoking age 19, states he quit one week ago. Pt has hx alcoholism but has not drank since January 2021 Past Drug Use History: None Reported Additional Drug Use History / Comment(s): Patient states he quit smoking one week ago. - Past Family History Father Family Medical History: Hypertension Additional Family Medical History / Comment(s): heart valve replacements. Medications and Allergies Home Medications Medication Instructions Recorded Confirmed Type HYDROcodone/APAP 10-325MG [[place] 1 tab PO QID 07/05/17 02/20/23 History 10-325] Furosemide [Lasix] 40 mg PO DAILY 08/12/20 02/20/23 History Levothyroxine Sodium [Synthroid] 100 mcg PO DAILY 10/14/20 02/20/23 History Omeprazole 40 mg PO DAILY 10/14/20 02/20/23 History Albuterol Inhaler [Ventolin Hfa 2 puff INHALATION RT-QID PRN 02/10/21 02/20/23 History Inhaler] Spironolactone 200 mg PO DAILY 03/06/21 02/20/23 History nadoloL [Corgard] 40 mg PO DAILY 07/14/21 02/20/23 History Amoxic-Pot Clav 875-125Mg 1 tab PO Q12H 02/20/23 02/20/23 History [Augmentin 875-125] NIFEdipine XL [Procardia Xl] 30 mg PO DAILY 02/20/23 02/20/23 History lidocaine HCL [lidocaine HCL 5 ml MUCOUS MEM QID PRN 02/20/23 02/20/23 History Viscous] Allergies Allergy/AdvReac Type Severity Reaction Status Date / Time cholesterol meds AdvReac Mild See Uncoded 02/20/23 12:13 comments Physical Exam Vitals: Vital Signs Temp Pulse Pulse Resp BP BP Pulse Ox 02/21/23 01:03 98.0 F 70 16 106/58 99 02/20/23 20:20 76 16 02/20/23 19:57 70 02/20/23 19:47 68 02/20/23 19:15 97.9 F 76 16 114/74 02/20/23 13:56 88 18 93/62 95 02/20/23 12:20 98.6 F 50 L 15 106/68 94 L 02/20/23 11:08 98.1 F 71 18 117/78 94 L Intake and Output 02/20/23 02/21/23 02/21/23 22:59 06:59 14:59 Intake Total 540 540 Balance 540 540 Intake: Oral 540 540 Other: Voiding Method Toilet Urinal # Voids 1 2 Results 02/20/23 11:36 02/20/23 11:36 Cardiac Enzymes 02/20/23 Range/Units 11:36 AST 23 (17-59) U/L Coagulation 02/20/23 Range/Units 11:36 PT 11.5 (10.0-12.5) sec APTT 26.1 (22.0-30.0) sec CBC 02/20/23 Range/Units 11:36 WBC 4.7 (3.8-10.6) k/uL RBC 3.42 L (4.30-5.90) m/uL Hgb 11.3 L (13.0-17.5) gm/dL Hct 34.3 L (39.0-53.0) % Plt Count 170 (150-450) k/uL Comprehensive Metabolic Panel 02/20/23 Range/Units 11:36 Sodium 139 (137-145) mmol/L Potassium 3.7 (3.5-5.1) mmol/L Chloride 102 (98-107) mmol/L Carbon Dioxide 25 (22-30) mmol/L BUN 16 (9-20) mg/dL Creatinine 0.82 (0.66-1.25) mg/dL Glucose 103 H (74-99) mg/dL Calcium 9.2 (8.4-10.2) mg/dL AST 23 (17-59) U/L ALT 17 (4-49) U/L Alkaline Phosphatase 172 H (38-126) U/L Total Protein 6.4 (6.3-8.2) g/dL Albumin 4.0 (3.5-5.0) g/dL Current Medications Generic Name Dose Route Start Last Admin Trade Name Freq PRN Reason Stop Dose Admin Hydrocodone Bitart/Acetaminophen 1 each 02/20/23 12:21 02/20/23 20:59 Hydrocodone/Apap 10-325mg 1 Each Tab PO 1 each Q6HR PRN Administration Pain Albuterol Sulfate 2.5 mg 02/20/23 12:18 02/20/23 19:47 Albuterol Nebulized 2.5 Mg/3 Ml INHALATION 2.5 mg RT-QID PRN Administration Shortness Of Breath Amoxicillin/Clavulanate Potassium 1 each 02/20/23 12:30 02/20/23 20:59 Amoxic-Pot Clav 875-125mg 1 Each Tab PO 1 each Q12HR JERRY Administration Protocol Famotidine 20 mg 02/20/23 21:00 02/20/23 20:59 Famotidine 20 Mg/2 Ml Vial IV 20 mg Q12HR JERRY Administration Furosemide 40 mg 02/21/23 09:00 Furosemide 40 Mg Tab PO DAILY JERRY Iopamidol 30 ml 02/20/23 12:05 Iopamidol Contrast (Oral Use) Vial PO 02/21/23 12:[address] Scan Levothyroxine Sodium 100 mcg 02/21/23 06:30 02/21/23 06:01 Levothyroxine 100 Mcg Tab PO 100 mcg DAILY@0630 JERRY Administration Nadolol 40 mg 02/21/23 09:00 Nadolol 20 Mg Tab PO DAILY JERRY Nifedipine 30 mg 02/21/23 09:00 Nifedipine Xl 30 Mg Tab.Er.24 PO DAILY JERRY Pantoprazole Sodium 40 mg 02/21/23 09:00 Pantoprazole 40 Mg/10 Ml Vial IVP DAILY JERRY Spironolactone 200 mg 02/21/23 09:00 Spironolactone 25 Mg Tab PO DAILY JERRY Intake and Output 02/20/23 02/21/23 02/21/23 22:59 06:59 14:59 Intake Total 540 540 Balance 540 540 Intake: Oral 540 540 Other: Voiding Method Toilet Urinal # Voids 1 2 02/20/23 11:36 02/20/23 11:36
--- NOTE | 2023-02-21 12:18 | P.PN ---
Subjective Progress Note Date: 02/21/23 CHIEF COMPLAINT: Bilateral inguinal hernias HISTORY OF PRESENT ILLNESS: Patient has bilateral hernias. Left hernia greater than the right hernia. Patient reports having gas and bowel movements. Denies any nausea vomiting. His pain is controlled. Patient's in by cardiology and is considered a moderate to high risk for surgery. Afebrile. Computed tomography scan abdomen and pelvis hepatic cirrhosis with findings of portal hypertension including splenomegaly and small to moderate-sized volume ascites. Hyperdense 7 mm focus within the right hepatic dome concerning for possible hepatocellular ca rcinoma. Numerous bilateral peripelvic lesions redemonstrated. May represent hemorrhagic/proteinaceous cyst. Redemonstration of indeterminate right presacral soft tissue lesion which is stable since exam in 2022 but has increased since size from 2020. Stable prominent gastrohepatic/pleural hepatic and portal caval lymph nodes. Cholelithiasis. PHYSICAL EXAM: VITAL SIGNS: Reviewed GENERAL: Well-developed in no acute distress. HEENT: No sclera icterus. Extraocular movements grossly intact. Moist buccal mucosa. Head is atraumatic, normocephalic. Hears conversational speech. No nasal yvonne inage. NECK: Supple without lymphadenopathy. CHEST: Non-labored respirations and equal bilateral excursions. CARDIOVASCULAR: Palpable 2+ radial pulses. ABDOMEN: Soft. Nondistended. large Left hernia bulge tender with palpation. Minimal right hernia bulge noted with standing MUSCULOSKELETAL: No clubbing or cyanosis. NEUROLOGIC: No focal or lateralizing signs. Cranial nerves II through XII grossly intact. PSYCH: Appropriate affect. Alert and oriented to person, place and time. SKIN: Well perfused. Good skin turgor. ASSESSMENT: 1. Bilateral inguinal hernias. Left greater than right with recent incarceration of small bowel 2. Liver cirrhosis with portal hypertension 3. Abdominal ascites 4. Paroxysmal atrial fibrillation not on anticoagulation 5. History of heavy alcohol use PLAN: -Plans for surgical intervention this week for bilateral inguinal hernias -Abdominal ultrasound for possible paracentesis for abdominal ascites ordered -Consult GI service due to patient's history of cirrhosis and ascites -Recommend a regular low sodium diet -Cardiology consult appreciated -Medically optimized patient for surgery Physician Shrimp Cleaner note has been reviewed by physician. Signing provider agrees with the documented findings, assessment, and plan of care. Objective - Vital Signs Vital signs: Vital Signs Temp 98.2 F 02/21/23 07:20 Pulse 71 02/21/23 07:20 Resp 19 02/21/23 07:20 BP 113/64 02/21/23 07:20 Pulse Ox 98 02/21/23 07:20 FiO2 Intake & Output 02/20/23 02/21/23 02/21/23 18:59 06:59 18:59 Intake Total 540 540 Balance 540 540 Weight 96.162 kg Intake: Oral 540 540 Other: Voiding Method Toilet Urinal # Voids 1 2 - Labs CBC & Chem 7: 02/20/23 11:36 02/20/23 11:36 Labs: Abnormal Lab Results - Last 24 Hours (Table) 02/20/23 02/20/23 Range/Units 11:36 11:36 RBC 3.42 L (4.30-5.90) m/uL Hgb 11.3 L (13.0-17.5) gm/dL Hct 34.3 L (39.0-53.0) % MCV 100.4 H (80.0-100.0) fL Lymphocytes # (Manual) 0.56 L (1.0-4.8) k/uL Metamyelocytes # (Man) 0.33 H (0) k/uL Myelocytes # (Manual) 0.38 H (0) k/uL Glucose 103 H (74-99) mg/dL Alkaline Phosphatase 172 H (38-126) U/L
--- NOTE | 2023-02-21 12:19 | US ---
EXAMINATION TYPE: US abdomen limited DATE OF EXAM: 02/21/2023 COMPARISON: 02/15/23 Para CLINICAL INDICATION: Male, 67 years old with history of Ascites; Minimal ascites noted RUQ and RLQ IMPRESSION: Ascites as noted.
--- NOTE | 2023-02-21 15:28 | P.CONS ---
History of Present Illness - Reason for Consult Consult date: 02/21/23 Cirrhosis of the liver Requesting physician: Carmen Fishman - Chief Complaint Bilateral inguinal hernias - History of Present Illness This is a pleasant 67-year-old male who presented to the emergency department with concerns for incarcerated hernia. Patient has history of bilateral inguinal hernias and is supposed to undergo surgical intervention with Dr. Fishman in March of this year however he was concerned for recurrent incarceration. She presented to the emergency department with incarcerated hernia that was eventually reduced. Patient has a past medical history including alcoholic cirrhosis of the liver with ascites diagnosed in 2020, portal hypertension, GI bleed, atrial fibrillation, COPD, hypothyroidism and arthritis. The patient follows with Dr. Light for his liver cirrhosis and ascites. States that he did see a specialist to [facility] in November or December for possible TIPS procedure however they did not feel it was necessary. He has been getting paracentesis every 1-2 months. He is currently on Lasix 40 mg daily and spironolactone 200 mg daily. He is denying any abdominal pain, no chest pain, shortness of breath, nausea or vomiting. There is no concerns for any GI bleed. Tentative plan is for hernia repair on . General surgery asked us to see patient regarding cirrhosis and portal hypertension. He did undergo a CT of the abdomen and pelvis with contrast that reports small amount of ascites, cirrhotic appearing liver with a 7 mm hyperdense lesion concerning for hepatocellular carcinoma. Today he underwent an ultrasound for paracentesis which reported minimal ascites, not enough for paracentesis. Review of Systems REVIEW OF SYSTEMS: CARDIOPULMONARY: No chest pain or shortness of breath. Gastrointestinal: No abdominal pain. No nausea or vomiting. No hematemesis, coffee-ground emesis. No rectal bleeding, or melena. GENITOURINARY: No dysuria or hematuria. Recurrent inguinal hernias. Left greater than right. MUSCULOSKELETAL: Reports normal range of motion., Joint pain. SKIN: No rashes. No jaundice. ENDOCRINE: No chills, fevers. No excessive weight gain or loss. No polydipsia or polyuria. PSYCHIATRIC: Unremarkable. NEUROLOGY: No change in mental status. Denies dizziness, headache. ENT: Vision unremarkable. CONSTITUTIONAL: No recent weight loss. No fever, chills, night sweats. Past Medical History Past Medical History: Atrial Fibrillation, Heart Failure, COPD, GI Bleed, Hypertension, Osteoarthritis (OA), Pneumonia, Thyroid Disorder Additional Past Medical History / Comment(s): ETOH abuse, pancytopenia, anemia with transfusions, liver cirrhosis, portal hypertension, ascities/paracentesis, upper GI bleed, AV malformations, duodenal/jejunal ectasia, gastropathy, hemo rrhoids, pollyps, paroxysmal Afib, moderate to severe mitral regurgitation, chronic diastolic CHF, vertigo, past Dimas's palsy, chronic low back pain/spinal stenosis, hypothyroid. History of Any Multi-Drug Resistant Organisms: None Reported Past Surgical History: Hernia Repair Additional Past Surgical History / Comment(s): Multiple large volume paracentesis, CARROLL/cardioversion, EGDs, colonoscopies/polypectomy, SB enteroscop y, R thigh fatty tumor removed, epidural low back injections, abdominal hernia repair. Past Anesthesia/Blood Transfusion Reactions: No Reported Reaction Past Psychological History: Anxiety Smoking Status: Current every day smoker Past Alcohol Use History: Occasional Additional Past Alcohol Use History / Comment(s): Pt states started smoking age 19, states he quit one week ago. Pt has hx alcoholism but has not drank since January 2021 Past Drug Use History: None Reported Additional Drug Use History / Comment(s): Patient states he quit smoking one week ago. - Past Family History Father Family Medical History: Hypertension Additional Family Medical History / Comment(s): heart valve replacements. Medications and Allergies Home Medications Medication Instructions Recorded Confirmed Type HYDROcodone/APAP 10-325MG [Colt 1 tab PO QID 07/05/17 02/20/23 History 10-325] Furosemide [Lasix] 40 mg PO DAILY 08/12/20 02/20/23 History Levothyroxine Sodium [Synthroid] 100 mcg PO DAILY 10/14/20 02/20/23 History Omeprazole 40 mg PO DAILY 10/14/20 02/20/23 History Albuterol Inhaler [Ventolin Hfa 2 puff INHALATION RT-QID PRN 02/10/21 02/20/23 History Inhaler] Spironolactone 200 mg PO DAILY 03/06/21 02/20/23 History nadoloL [Corgard] 40 mg PO DAILY 07/14/21 02/20/23 History Amoxic-Pot Clav 875-125Mg 1 tab PO Q12H 02/20/23 02/20/23 History [Augmentin 875-125] NIFEdipine XL [Procardia Xl] 30 mg PO DAILY 02/20/23 02/20/23 History lidocaine HCL [lidocaine HCL 5 ml MUCOUS MEM QID PRN 02/20/23 02/20/23 History Viscous] Allergies Allergy/AdvReac Type Severity Reaction Status Date / Time cholesterol meds AdvReac Mild See Uncoded 02/20/23 12:13 comments Physical Exam Vitals: Vital Signs Temp Pulse Pulse Resp BP BP Pulse Ox 02/21/23 07:20 98.2 F 71 19 113/64 98 02/21/23 01:03 98.0 F 70 16 106/58 99 02/20/23 20:20 76 16 02/20/23 19:57 70 02/20/23 19:47 68 02/20/23 19:15 97.9 F 76 16 114/74 02/20/23 13:56 88 18 93/62 95 Intake and Output 02/20/23 02/21/23 02/21/23 22:59 06:59 14:59 Intake Total 540 540 Balance 540 540 Intake: Oral 540 540 Other: Voiding Method Toilet Urinal # Voids 1 2 General appearance: The patient is alert, oriented, appears in no acute distress. HET: Head is normocephalic and atraumatic. Conjunctiva pink. Sclera anicteric. Neck: Supple without lymphadenopathy. Trachea midline. Heart: Regular. Lungs: Equal expansion, normal respiratory effort. Abdomen: Soft, nontender, nondistended with bowel sounds. No guarding or rigidity. Skin: No rashes. No jaundice. Extremities: Normal skin color and turgor. Lower extremity edema. Neurological: No focal deficits. Alert and oriented x3. Results CBC & Chem 7: 02/20/23 11:36 02/20/23 11:36 Comments: CT abdomen and pelvis with contrast reports hepatic cirrhosis with findings of portal hypertension including splenomegaly and small to moderate-sized volume ascites. Hypertension 7 mm focus within the right hepatic dome concerning for possible hepatocellular carcinoma. Further evaluation with MR abdomen liver mass protocol is recommended. Numerous bilateral parapelvic lesions redemonstrated. These are similar most recent exam 2022 but have increased in size from 2020 exam. May represent hemorrhagic/proteinaceous cysts versus other etiologies. Redemonstration of indeterminate right presacral soft tissue lesion which is stable from most recent exam in 2022 but has increased marginally in size from 202 exam. Stable prominent gastrohepatic/pleura hepatic and portal caval lymph nodes. Cholelithiasis. Assessment and Plan (1) Decompensation of cirrhosis of liver Narrative/Plan: 67-year-old male diagnosed with alcoholic liver cirrhosis approximately 2 years ago with portal hypertension who follows with his PCP Dr. Light for underlying liver disease. States he does not follow with liver specialist has seen one in November or December of this year for possible TIPS procedure which they felt he did not need. They did at that time increase his spironolactone to 200 mg daily. Patient is without any concerning symptoms, no evidence of GI bleed, liver enzymes are normal however patient did have a CT of the abdomen and pelvis that is reporting 7 mm hyperdense lesion in the liver concerning for hep atocellular carcinoma. Further investigation with MRI can be done as an outpatient. Unfortunately this patient has a history of bilateral inguinal hernias and presented with incarcerated left inguinal hernia which was able to be reduced. There is concern for reoccurrence of incarceration, and tentative plan is for left inguinal hernia repair. This is a patient with decompensated cirrhosis of the liver who is high risk for surgery including increased risk for infection, bleeding, increased ascites, ascitic fluid through surgical sites, as well as increased risk for liver failure. This is discussed with the patient seemingly understands and verbalizes understanding. Current Visit: Yes Status: Acute Code(s): K72.90 - HEPATIC FAILURE, UNSPECIFIED WITHOUT COMA; K74.60 - UNSPECIFIED CIRRHOSIS OF LIVER SNOMED Code(s): 209322052 (2) Liver cirrhosis, alcoholic Current Visit: No Status: Acute Code(s): K70.30 - ALCOHOLIC CIRRHOSIS OF LIVER WITHOUT ASCITES SNOMED Code(s): 024766901 (3) History of alcohol abuse Current Visit: Yes Status: Acute Code(s): F10.11 - ALCOHOL ABUSE, IN REMISSION SNOMED Code(s): 597396172 (4) Inguinal hernia Current Visit: Yes Status: Acute Code(s): K40.90 - UNIL INGUINAL HERNIA, W/O OBST OR GANGR, NOT SPCF RECUR SNOMED Code(s): 631823858 (5) Atrial fibrillation Current Visit: No Status: Acute Code(s): I48.91 - UNSPECIFIED ATRIAL FIBRILLATION SNOMED Code(s): 24234737 (6) Abnormal computed tomography of abdomen and pelvis Current Visit: Yes Status: Acute Code(s): R93.5 - ABN FINDINGS ON DX IMAGING OF ABD REGIONS, INC RETROPERITON SNOMED Code(s): 23590551065762453 Plan: 1. Continue symptomatic and supportive care 2. Will plan for MRI of the liver as an outpatient 3. AFP ordered 4. Continue diuretics as ordered 5. Low-sodium diet 6. Patient has decompensated cirrhosis of the liver and is high risk for surgery Thank you for this consultation, we will continue to follow. Dr. Anderson Power I agree with the dictator's note, documented as a scribe by Niki Davis.
--- NOTE | 2023-02-21 15:57 | P.PN ---
Subjective Progress Note Date: 02/21/23 This is 67-year-old gentleman with past medical history significant for COPD, atrial fibrillation, hypothyroidism, GI bleed, bilateral inguinal hernias , alcoholic cirrhosis , ascites , portal hypertension and multiple other medical issues presented to the ER with complaints of incarcerated hernia. Reports last paracentesis was on 02/14/2023 with 3 liters removed. States he had gone 6 weeks between paracentesis. Abdomen/pelvis CT pending. Denies nausea ,vomiting. Denies abdominal pain. Afebrile. Objective - Vital Signs Vital signs: Vital Signs Temp 97.4 F L 02/21/23 13:51 Pulse 57 L 02/21/23 13:51 Resp 19 02/21/23 13:51 BP 110/74 02/21/23 13:51 Pulse Ox 97 02/21/23 13:51 FiO2 Intake & Output 02/20/23 02/21/23 02/21/23 18:59 06:59 18:59 Intake Total 540 540 Balance 540 540 Weight 96.162 kg Intake: Oral 540 540 Other: Voiding Method Toilet Urinal # Voids 1 2 - Exam GENERAL: Sitting up in bed, Alert and oriented x3, no acute distress. HEENT: Normocephalic, atraumatic .Pupils are round and equally reacting to light. EOMI. Poor dentition CARDIOVASCULAR: S1 and S2 present. Regular, + systolic murmur, rubs, or gallops. PULMONARY: Unlabored, Equal air entry, Bilateral bases diminished. ABDOMEN: Soft, nontender, nondistended ,normoactive bowel sounds. No guarding or rigidity. EXTREMITIES: No bilateral lower extremity edema,no calf tenderness. NEUROLOGICAL: Gross neurological examination did not reveal any focal deficits. SKIN: No rashes, warm and dry. - Labs CBC & Chem 7: 02/20/23 11:36 02/20/23 11:36 Assessment and Plan Assessment: -Bilateral inguinal hernias ,left greater than right, recent incarceration of small bowel -chronic anemia, history of nonbleeding AVMs, underlying liver cirrhosis, portal hypertension. Moderate to severe portal hypertensive gastropathy. -History of Pancytopenia suspected to be related to bone marrow suppression from alcohol abuse. Patient previously advised to follow-up with hematology OP. -Ascites,secondary to cirrhosis, status post paracentesis on February 14, 3 L removed. Reports 6 weeks since prior paracentesis. -Chronic Paroxysmal atrial fibrillation, not on anticoagulation due to anemia -Nicotine use: Counseling provided -Pulmonary hypertension -Moderate to severe mitral regurgitation -Chronic diastolic congestive heart failure current EF is 55% -Chronic alcohol abuse with alcoholic liver cirrhosis -Hypertension -Hypothyroidism -Hypoalbuminemia -COPD Plan: Continue on current medication regime ,monitoring and symptomatic treatment. Abdominal/pelvis CT pending .Scheduled for bilateral inguinal hernias surgical intervention. Low-sodium diet. Smoking cessation reinforced. The impression and plan of care has been dictated as directed. : I performed a history and examination of this patient, discussed the same with the dictator. I agree with the dictator's note ,documented as a scribe. Any additional findings or plans will be noted.
[2023-02-22] MEDS: LEVOTHYROXINE 100 MCG TAB PO SCH (06:09)
--- NOTE | 2023-02-22 07:12 | CA ---
Transthoracic Echo Report Name: Mikey Rodriguez Age: 67 Gender: M : 1955 Exam Date: 02/21/2023 10:11 Exam Location: [place] [facility] Ht (in): 76 Wt (lb): 212 Ordering Physician: Myla Muse Attending/Referring Phys: [id number], Micha Deputy Felony Clerk Lalitha Perez [facility] Procedure CPT: Indications: LVF Cardiac Hx: Technical Quality: Fair Contrast 1: Total Dose (mL): Contrast 2: Total Dose (mL): MEASUREMENTS (Male / Female) Normal Values 2D ECHO LV Diastolic Diameter PLAX 5.0 cm 4.2 - 5.9 / 3.9 - 5.3 cm LV Systolic Diameter PLAX 3.2 cm IVS Diastolic Thickness 1.1 cm 0.6 - 1.0 / 0.6 - 0.9 cm LVPW Diastolic Thickness 1.3 cm 0.6 - 1.0 / 0.6 - 0.9 cm LV Relative Wall Thickness 0.5 LVOT Diameter 2.1 cm Ascending Aorta Diameter 3.6 cm M-MODE Aortic Root Diameter MM 2.9 cm LA Systolic Diameter MM 6.1 cm LA Ao Ratio MM 2.1 AV Cusp Separation MM 2.2 cm DOPPLER AV Peak Velocity 130.3 cm/s AV Peak Gradient 6.8 mmHg AV Mean Velocity 90.6 cm/s AV Mean Gradient 3.7 mmHg AV Velocity Time Integral 24.7 cm LVOT Peak Velocity 92.2 cm/s LVOT Peak Gradient 3.4 mmHg LVOT Velocity Time Integral 18.2 cm LVOT Stroke Volume 61.3 cm??? LVOT Stroke Volume Index 27.0 ml/m??? LVOT Cardiac Index 1750.7 cm???/min???m??? AV Area Cont Eq vti 2.5 cm??? AV Area Cont Eq pk 2.4 cm??? MV Peak Velocity 123.6 cm/s MV Peak Gradient 6.1 mmHg MV Mean Velocity 82.0 cm/s MV Mean Gradient 3.0 mmHg MV Velocity Time Integral 32.1 cm MR Peak Velocity 438.8 cm/s MR Peak Gradient 77.0 mmHg Mitral E Point Velocity 108.2 cm/s MV Deceleration Time 207.0 ms LV E' Lateral Velocity 12.1 cm/s Mitral E to LV E' Lateral Ratio 8.9 LV E' Septal Velocity 9.5 cm/s Mitral E to LV E' Septal Ratio 11.4 TR Peak Velocity 266.4 cm/s TR Peak Gradient 28.4 mmHg Right Atrial Pressure 3.0 mmHg Pulmonary Artery Systolic Pressu 31.4 mmHg Right Ventricular Systolic Press 31.4 mmHg FINDINGS Left Ventricle Mildly increased left ventricular wall thickness. Left ventricular cavity size normal. Normal left ventricular systolic function with no obvious regional wall motion abnormalities. Left ventricular ejection fraction is estimated at 55- 60%. Right Ventricle Moderate right ventricular dilatation. Mild pulmonary hypertension. Right Atrium Moderate right atrial dilatation. Left Atrium Severe left atrial dilatation. Mitral Valve Mitral valve thickened. Mild mitral annular calcification. Moderate mitral regurgitation. Aortic Valve Trileaflet aortic valve. Aortic valve sclerosis. Trace aortic regurgitation. Tricuspid Valve Structurally normal tricuspid valve. [id number] tricuspid regurgitation. Pulmonic Valve Structurally normal pulmonic valve. Mild pulmonic regurgitation. Pericardium No pericardial effusion. Aorta Normal size aortic root and proximal ascending aorta. CONCLUSIONS Normal LV size and systolic function. Right ventricle is enlarged. Moderate mitral regurgitation. Mild to moderate tricuspid regurgitation no significant pulmonary hypertension no pericardial effusion Previewed by: Dr. Sondra Avila MD (Electronically Signed) Final Date: 22 February 2023 07:11
[2023-02-22] MEDS: AMOXIC-POT CLAV 875-125MG 1 EACH TAB PO SCH ×2 (08:02→21:11)
[2023-02-22] MEDS: FUROSEMIDE 40 MG TAB PO SCH (08:02)
[2023-02-22] MEDS: NIFEdipine XL 30 MG TAB.ER.24 PO SCH (08:03)
[2023-02-22] MEDS: SPIRONOLACTONE 25 MG TAB PO SCH (08:07)
[2023-02-22] MEDS: HYDROcodone/APAP 10-325MG 1 EACH TAB PO PRN ×3 (08:07→21:10)
[2023-02-22] MEDS: FAMOTIDINE 20 MG/2 ML VIAL IV SCH ×3 (08:29→21:14)
[2023-02-22] MEDS: PANTOPRAZOLE 40 MG/10 ML VIAL IVP SCH (08:29)
--- NOTE | 2023-02-22 10:45 | PN ---
PROGRESS NOTE HISTORY: Mr. Rodriguez is a gentleman with history of previous alcoholism and cardiomyopathy. He is here because of inguinal hernia and possible surgery. He also has some ascites issues. These are also being looked at. From a cardiac standpoint, his ejection fraction is good. His functional capacity is good. He can walk up and down a flight of stairs without a problem. Echo revealed preserved systolic function, hemodynamically stable, blood pressure control is good. After the GI workup and paracentesis issues are resolved, he will probably have his surgery. No contraindication. Risk is moderate. Advised cautious fluid administration and optimal BP control perioperatively. We will come back and see the patient once surgery is definitively scheduled. Cardiac-islas, he is doing well. He has chronic atrial fib. The rate is well controlled. He is not anticoagulated because of life-threatening GI bleeding in the past and is fully aware of the fact that he runs a risk of embolic stroke. However, hemodynamically stable. No absolute contraindication. Preserved LV systolic function. We will continue his current medical regimen, which includes: 1. Aldactone. 2. Corgard. 3. Synthroid. 4. Also some inhalers along with Protonix. PHYSICAL EXAMINATION: VITAL SIGNS: Reveal a blood pressure of 108/70; pulse rate 60 to 70, irregular. NECK: No JVD. HEART: S1, S2 with a regular rhythm. Short systolic murmur. LUNGS: Revealed decent air entry. ABDOMEN: Shows mild distention. LOWER EXTREMITIES: Reveal palpable pulses. CENTRAL NERVOUS SYSTEM: Normal. We will see him once surgery is scheduled. Okay for the operation. Moderate risk. No contraindication. MMODL / IJN: [id number] /
[2023-02-22 10:50] LABS: HCT 28.2 % (39.6-50.0); MCHC 31.9 g/dL (32.0-37.0); MCV 103.3 FL (80.0-97.0); Mean Platelet Volume 9.1 FL (9.5-12.2); NRBC Per 100 WBC 0 X 10*3/uL (0.00-0.01); Platelet Count 116 X 10*3/uL (140-440); RBC 2.73 X 10*6/uL (4.40-5.60); RDW 15.8 % (11.5-14.5); WBC 2.51 X 10*3/uL (4.50-10.00)
[2023-02-22 11:15] LABS: BUN/Creat Ratio 10.44 Ratio (12.00-20.00); Blood Urea Nitrogen 9.4 mg/dL (9.0-27.0); Calcium 8.9 mg/dL (8.7-10.3); Carbon Dioxide 24.5 mmol/L (21.6-31.8); Chloride 103 mmol/L (96-109); Glucose 100 mg/dL (70-110); Potassium 3.8 mmol/L (3.5-5.5); Sodium 139 mmol/L (135-145)
--- NOTE | 2023-02-22 13:02 | P.PN ---
Subjective Progress Note Date: 02/22/23 CHIEF COMPLAINT: Bilateral inguinal hernias HISTORY OF PRESENT ILLNESS: Patient has bilateral hernias. Left hernia greater than the right hernia. Patient reports having gas and bowel movements. Denies any nausea vomiting. His pain is controlled. Patient's in by cardiology and is considered a moderate to high risk for surgery. Cardiology cleared for surgery. He was also seen by GI service. Abdominal ultrasound completed only showing minimal ascites. No paracentesis completed. Afebrile. WBC 2.5 Hgb 11 down to 9.0 platelets 116 sodium is 139 potassium 3.8 creatinine 0.9 PHYSICAL EXAM: VITAL SIGNS: Reviewed GENERAL: Well-developed in no acute distress. HEENT: No sclera icterus. Extraocular movements grossly intact. Moist buccal mucosa. Head is atraumatic, normocephalic. Hears conversational speech. No nasal drainage. NECK: Supple without lymphadenopathy. CHEST: Non-labored respirations and equal bilateral excursions. CARDIOVASCULAR: Palpable 2+ radial pulses. ABDOMEN: Soft. Nondistended. large Left hernia bulge tender with palpation. Minimal right hernia bulge noted with standing MUSCULOSKELETAL: No clubbing or cyanosis. NEUROLOGIC: No focal or lateralizing signs. Cranial nerves II through XII grossly intact. PSYCH: Appropriate affect. Alert and oriented to person, place and time. SKIN: Well perfused. Good skin turgor. ASSESSMENT: 1. Bilateral inguinal hernias. Left greater than right with recent incarceration of small bowel 2. Liver cirrhosis with portal hypertension 3. Abdominal ascites 4. Paroxysmal atrial fibrillation not on anticoagulation 5. History of heavy alcohol use PLAN: -Plan is for surgical intervention this week for bilateral inguinal hernias -Continue low-sodium diet -Check type and screen -Check PT/INR -Check labs in AM -Encouraged patient to ambulate Physician [place] note has been reviewed by physician. Signing provider agrees with the documented findings, assessment, and plan of care. Objective - Vital Signs Vital signs: Vital Signs Temp 97.8 F 02/22/23 07:01 Pulse 56 L 02/22/23 07:01 Resp 16 02/22/23 07:01 BP 109/69 02/22/23 07:01 Pulse Ox 99 02/22/23 07:01 FiO2 Intake & Output 02/21/23 02/22/23 02/22/23 18:59 06:59 18:59 Other: Voiding Method Toilet Urinal # Voids 4 3 - Labs CBC & Chem 7: 02/22/23 06:59 02/22/23 06:59 Labs: Abnormal Lab Results - Last 24 Hours (Table) 02/22/23 02/22/23 Range/Units 06:59 06:59 WBC 2.51 L (4.50-10.00) X 10*3/uL RBC 2.73 L (4.40-5.60) X 10*6/uL Hgb 9.0 L (13.0-17.0) g/dL Hct 28.2 L (39.6-50.0) % MCV 103.3 H (80.0-97.0) FL MCH 33.0 H (27.0-32.0) pg MCHC 31.9 L (32.0-37.0) g/dL RDW 15.8 H (11.5-14.5) % Plt Count 116 L (140-440) X 10*3/uL MPV 9.1 L (9.5-12.2) FL BUN/Creatinine Ratio 10.44 L (12.00-20.00) Ratio
--- NOTE | 2023-02-22 15:56 | P.PN ---
Subjective Progress Note Date: 02/22/23 This is 67-year-old gentleman with past medical history significant for COPD, atrial fibrillation, hypothyroidism, GI bleed, bilateral inguinal hernias , alcoholic cirrhosis , ascites , portal hypertension and multiple other medical issues presented to the ER with complaints of incarcerated hernia. Reports last paracentesis was on 02/14/2023 with 3 liters removed. States he had gone 6 weeks between paracentesis. Abdomen/pelvis CT pending. Denies nausea ,vomiting. Denies abdominal pain. Afebrile. 02/22/2023 Abdominal ultrasound reported minimal ascites .CT of abdomen and pelvis reported hepatic cirrhosis with findings of portal hypertension including splenomegaly, small moderate-sized volume ascites, hyperdense 7 mm focus within the right hepatic dome concerning for possible hepatocellular carcinoma, futher out-patient MRI recommended, numerous bilateral parapelvic lesions redemonst rated, increased in size from 2020, may represent hemorrhagic/proteinaceous cysts, redemonstrated indeterminate right presacral soft tissue lesion stable. Afebrile, WBC 2.51, hemoglobin decreased to 9, platelets decreased 116, renal function stable. Objective - Vital Signs Vital signs: Vital Signs Temp 97.8 F 02/22/23 07:01 Pulse 56 L 02/22/23 07:01 Resp 16 02/22/23 07:01 BP 109/69 02/22/23 07:01 Pulse Ox 99 02/22/23 07:01 FiO2 Intake & Output 02/21/23 02/22/23 02/22/23 18:59 06:59 18:59 Other: Voiding Method Toilet Urinal # Voids 4 3 - Exam GENERAL: Sitting up in bed, Alert and oriented x3, no acute distress. HEENT: Normocephalic, atraumatic .Pupils are round and equally reacting to light. EOMI. Poor dentition CARDIOVASCULAR: S1 and S2 present. Regular, + systolic murmur, rubs, or gallops. PULMONARY: Unlabored, Equal air entry, Bilateral bases diminished. ABDOMEN: Soft, nontender, nondistended ,normoactive bowel sounds. No guarding or rigidity. EXTREMITIES: No bilateral lower extremity edema,no calf tenderness. NEUROLOGICAL: Gross neurological examination did not reveal any focal deficits. SKIN: No rashes, warm and dry. - Labs CBC & Chem 7: 02/22/23 06:59 02/22/23 06:59 Assessment and Plan Assessment: -Bilateral inguinal hernias ,left greater than right, recent incarceration of small bowel -Possible right hepatic dome, hyperdense 7mm focus,concerning for possible hepatocellular carcinoma, futher out-patient MRI recommended. -chronic anemia, history of nonbleeding AVMs, underlying liver cirrhosis, portal hypertension. Moderate to severe portal hypertensive gastropathy. -History of Pancytopenia suspected to be related to bone marrow suppression from alcohol abuse. Patient previously advised to follow-up with hematology OP. -Ascites,secondary to cirrhosis, status post paracentesis on Tuesday, February 14, 3 L removed. Reports 6 weeks since prior paracentesis. -Chronic Paroxysmal atrial fibrillation, not on anticoagulation due to anemia -Nicotine use: Counseling provided -Pulmonary hypertension -Moderate to severe mitral regurgitation -Chronic diastolic congestive heart failure current EF is 55% -Chronic alcohol abuse with alcoholic liver cirrhosis -Hypertension -Hypothyroidism -Hypoalbuminemia -COPD -Actively grieving, patient's recently passed. Plan: Continue on current medication regime ,monitoring and symptomatic treatment. Close monitoring of CBC with repeat labs ordered for a.m. Bilateral inguinal hernias surgical intervention pending. Smoking cessation reinforced. Increase ambulation as tolerated. The impression and plan of care has been dictated as directed. : I performed a history and examination of this patient, discussed the same with the dictator. I agree with the dictator's note ,documented as a scribe. Any additional findings or plans will be noted.
[2023-02-23] MEDS: LEVOTHYROXINE 100 MCG TAB PO SCH (06:45)
[2023-02-23] MEDS: HYDROcodone/APAP 10-325MG 1 EACH TAB PO PRN ×2 (06:48→14:06)
[2023-02-23] MEDS ORDERED: HEPARIN SODIUM,PORCINE/PF 5,000 UNIT/0.5 ML SYRINGE SQ PRN (09:39)
[2023-02-23] MEDS: AMOXIC-POT CLAV 875-125MG 1 EACH TAB PO SCH ×2 (09:42→23:45)
[2023-02-23] MEDS: FUROSEMIDE 40 MG TAB PO SCH (09:43)
[2023-02-23] MEDS: PANTOPRAZOLE 40 MG/10 ML VIAL IVP SCH (09:43)
[2023-02-23] MEDS: SPIRONOLACTONE 25 MG TAB PO SCH (09:43)
[2023-02-23] MEDS: FAMOTIDINE 20 MG/2 ML VIAL IV SCH ×2 (09:43→23:46)
[2023-02-23] MEDS: NIFEdipine XL 30 MG TAB.ER.24 PO SCH (09:43)
[2023-02-23] MEDS ORDERED: LIDOCAINE 2% GLYDO JELLY 11 ML APPL PO PRN (10:11)
[2023-02-23 13:44] LABS: INR 1.12 sec (0.93-1.11)
[2023-02-23 13:51] LABS: HCT 29.1 % (39.6-50.0); HGB 9.4 g/dL (13.0-17.0); MCH 33.3 pg (27.0-32.0); MCHC 32.3 g/dL (32.0-37.0); MCV 103.2 FL (80.0-97.0); Mean Platelet Volume 9.2 FL (9.5-12.2); NRBC Per 100 WBC 0 X 10*3/uL (0.00-0.01); Platelet Count 108 X 10*3/uL (140-440); RBC 2.82 X 10*6/uL (4.40-5.60); RDW 15.8 % (11.5-14.5); WBC 2.84 X 10*3/uL (4.50-10.00)
[2023-02-23 13:59] LABS: Blood Urea Nitrogen 11.8 mg/dL (9.0-27.0); Carbon Dioxide 25.7 mmol/L (21.6-31.8); Chloride 103 mmol/L (96-109); Glucose 94 mg/dL (70-110); Potassium 4.1 mmol/L (3.5-5.5); Sodium 141 mmol/L (135-145)
[2023-02-23 14:45] LABS: Basophils # (M) 0.09 X 10*3/uL (0.00-0.10); Eosinophils # (M) 0 X 10*3/uL (0.04-0.35); Lymphocytes # (M) 0.54 X 10*3/uL (0.90-5.00); Metamyelocytes % 3 % (0-0); Monocytes # (M) 0.17 X 10*3/uL (0.20-1.00); Myelocytes % 12 % (0-0); Neutrophils # (M) 1.59 X 10*3/uL (1.80-7.70); Neutrophils % (M) 56 %; Promyelocytes # (M) 0.03 k/uL (0); Promyelocytes % 1 %
--- NOTE | 2023-02-23 16:38 | P.PN ---
Subjective Progress Note Date: 02/23/23 This is 67-year-old gentleman with past medical history significant for COPD, atrial fibrillation, hypothyroidism, GI bleed, bilateral inguinal hernias , alcoholic cirrhosis , ascites , portal hypertension and multiple other medical issues presented to the ER with complaints of incarcerated hernia. Reports last paracentesis was on 02/14/2023 with 3 liters removed. States he had gone 6 weeks between paracentesis. Abdomen/pelvis CT pending. Denies nausea ,vomiting. Denies abdominal pain. Afebrile. 02/22/2023 Abdominal ultrasound reported minimal ascites .CT of abdomen and pelvis reported hepatic cirrhosis with findings of portal hypertension including splenomegaly, small moderate-sized volume ascites, hyperdense 7 mm focus within the right hepatic dome concerning for possible hepatocellular carcinoma, futher out-patient MRI recommended, numerous bilateral parapelvic lesions redemonst rated, increased in size from 2020, may represent hemorrhagic/proteinaceous cysts, redemonstrated indeterminate right presacral soft tissue lesion stable. Afebrile, WBC 2.51, hemoglobin decreased to 9, platelets decreased 116, renal function stable. 02/23/2023 afebrile, WBC 2.84, hemoglobin 9.4, platelets 108, INR 1.12. Bicarb 25.7, BUN 11.8, creatinine 1. Maintaining O2 sats in the high 90s on room air. Currently complaining of chronic back pain and tooth pain. Denies chest pain, palpitations or shortness of breath. Scheduled for surgery tomorrow. Objective - Vital Signs Vital signs: Vital Signs Temp 98.3 F 02/23/23 13:25 Pulse 66 02/23/23 13:25 Resp 24 02/23/23 13:25 BP 107/69 02/23/23 13:25 Pulse Ox 98 02/23/23 13:25 FiO2 Intake & Output 02/22/23 02/23/23 02/23/23 18:59 06:59 18:59 Intake Total 118 Output Total 0 0 Balance 118 0 Intake: Oral 118 Output: Stool 0 0 Other: Voiding Method Toilet Toilet Urinal Urinal # Voids 3 0 2 # Bowel Movements 1 - Exam GENERAL: Sitting up in bed, Alert and oriented x3, no acute distress. HEENT: Normocephalic, atraumatic .Pupils are reactive,Poor dentition CARDIOVASCULAR: S1 and S2 present. Regular, + systolic murmur, rubs, or gallops. PULMONARY: Unlabored, Equal air entry, Bilateral bases diminished. ABDOMEN: Soft, nontender, nondistended ,normoactive bowel sounds. No guarding or rigidity. EXTREMITIES: No bilateral lower extremity edema,no calf tenderness. NEUROLOGICAL: Gross neurological examination did not reveal any focal deficits. SKIN: No rashes, warm and dry. - Labs CBC & Chem 7: 02/23/23 06:25 02/23/23 06:25 Labs: Abnormal Lab Results - Last 24 Hours (Table) 02/23/23 02/23/23 02/23/23 Range/Units 06:25 06:25 06:25 WBC 2.84 L (4.50-10.00) X 10*3/uL RBC 2.82 L (4.40-5.60) X 10*6/uL Hgb 9.4 L (13.0-17.0) g/dL Hct 29.1 L (39.6-50.0) % MCV 103.2 H (80.0-97.0) FL MCH 33.3 H (27.0-32.0) pg RDW 15.8 H (11.5-14.5) % Plt Count 108 L (140-440) X 10*3/uL MPV 9.2 L (9.5-12.2) FL Lymphocytes # (Manual) 0.54 L (0.90-5.00) X 10*3/uL Monocytes # (Manual) 0.17 L (0.20-1.00) X 10*3/uL Eosinophils # (Manual) 0 L (0.04-0.35) X 10*3/uL PT 12.0 H (9.9-11.9) sec INR 1.12 H (0.93-1.11) sec Anion Gap 12.30 H (4.00-12.00) mmol/L BUN/Creatinine Ratio 11.80 L (12.00-20.00) Ratio Assessment and Plan Assessment: -Bilateral inguinal hernias ,left greater than right, recent incarceration of small bowel -Possible right hepatic dome, hyperdense 7mm focus,concerning for possible hepatocellular carcinoma, futher out-patient MRI recommended. -chronic anemia, history of nonbleeding AVMs, underlying liver cirrhosis, portal hypertension. Moderate to severe portal hypertensive gastropathy. -History of Pancytopenia suspected to be related to bone marrow suppression from alcohol abuse. Patient previously advised to follow-up with hematology OP. -Ascites,secondary to cirrhosis, status post paracentesis on Tuesday, February 14, 3 L removed. Reports 6 weeks since prior paracentesis. -Chronic Paroxysmal atrial fibrillation, not on anticoagulation due to anemia -Nicotine use: Counseling provided -Pulmonary hypertension -Moderate to severe mitral regurgitation -Chronic diastolic congestive heart failure current EF is 55% -Chronic alcohol abuse with alcoholic liver cirrhosis -Hypertension -Hypothyroidism -Hypoalbuminemia -COPD -Actively grieving, patient's recently passed. Plan: Continue on current medication regime ,monitoring and symptomatic treatment. Oral Lidocaine gel ordered for tooth pain.Close monitoring of CBC with repeat labs ordered for a.m. aggressive pulmonary toileting with incentive spirometer ordered . NPO at midnight. Bilateral inguinal hernias surgical intervention scheduled for tomorrow. Smoking cessation reinforced. Increase ambulation as tolerated. The impression and plan of care has been dictated as directed. : I performed a history and examination of this patient, discussed the same with the dictator. I agree with the dictator's note ,documented as a scribe. Any additional findings or plans will be noted.
[2023-02-23] MEDS ORDERED: MIDAZOLAM 2 MG/2 ML VIAL ONE (19:23)
[2023-02-23] MEDS ORDERED: GLYCOPYRROLATE 0.2 MG/ML 2 ML VIAL ONE (19:23)
[2023-02-23] MEDS ORDERED: ROCURONIUM 10 MG/ML (5 ML VIAL) IV ONE (19:23)
[2023-02-23] MEDS ORDERED: NEOSTIGMINE 1 MG/ML 10 ML VIAL ONE (19:23)
[2023-02-23] MEDS ORDERED: fentaNYL (PF) 50 MCG/ML 2 ML AMP ONE (19:23)
[2023-02-23] MEDS ORDERED: LIDOCAINE 1% INJ 10MG/ML (20 ML MDV) ONE (19:23)
[2023-02-23] MEDS ORDERED: PROPOFOL 10 MG/ML 20 ML VIAL IV ONE (19:23)
[2023-02-23] MEDS ORDERED: HEPARIN SODIUM,PORCINE 5,000 UNIT/ML 1 ML VIAL ONE (19:23)
[2023-02-23] MEDS ORDERED: SUCCINYLCHOLINE CHLORIDE 200 MG/10 ML VIAL IV ONE (19:23)
[2023-02-23] MEDS ORDERED: LACTATED RINGERS 1,000 ML IV ONE ×2 (19:27→21:53)
[2023-02-23] MEDS ORDERED: LIDOCAINE 2%-EPI 1:100,000 20 ML VIAL SQ ONE ×2 (20:39)
[2023-02-23] MEDS ORDERED: ONDANSETRON 4 MG/2 ML VIAL IVP ONE (22:18)
[2023-02-23] MEDS ORDERED: HYDROmorphone 0.5 MG/0.5 ML SYRINGE IVP ONE ×2 (22:22→22:35)
--- NOTE | 2023-02-23 22:25 | P.OP ---
Date of Procedure: 02/23/23 Description of Procedure: SURGEON: SAMI IRBY MD PREOPERATIVE DIAGNOSES: 1. Incarcerated left inguinal hernia with bowel obstruction, initial 2. Right inguinal hernia 3. Cirrhosis of the liver 4. Abdominal ascites POSTOPERATIVE DIAGNOSES: 1. Incarcerated left inguinal hernia with bowel obstruction, initial 2. Right inguinal hernia, initial 3. Cirrhosis of the liver 4. Abdominal ascites 5. Abdominal ventral hernia, initial OPERATION: 1. Robotic-assisted da Brendan Xi laparoscopic repair of initial reducible right direct inguinal hernia with mesh, 11.[address] 2. Robotic-assisted da Brendan Xi laparoscopic repair of initial incarcerated left direct inguinal hernia with mesh, 11.[address] 3. Robotic-assisted repair of abdominal ventral hernia, 4 x 4 cm without mesh 4. Drainage of abdominal ascites, 2.5 L ANESTHESIA: General with local anesthetic ESTIMATED BLOOD LOSS: 5 mL. SPECIMENS: 1. Left inguinal hernia sac 2. Right inguinal hernia sac COMPLICATIONS: None. FINDINGS: 1. Indirect left inguinal hernia defect, 5 x 4 cm, extending to scrotum 2. Indirect right inguinal hernia defect, 4 x 4 centimeters 3. Ventral abdominal wall hernia lower abdomen, 4 x 4 cm oversewn without mesh 4. Drainage of abdominal ascites, 2.5 L INDICATIONS: The patient is a 67-year-old gentleman who presents acutely with incarcerated left inguinal hernia with bowel obstruction. Cardiac risk assessment was obtained. Now presents for definitive surgical intervention. Laparoscopic versus open and robotic approaches were discussed. Benefits and risks including bleeding, infection, injury to the vas deferens as well as sterility and chronic groin pain were reviewed. Placement of mesh was also described. Informed consent was obtained. DESCRIPTION: In the preoperative area, the patient was marked with indelible marker along the inguinal hernia. The patient was brought to the operating room and initially laid in supine position. The abdomen had been prepped and draped in standard sterile fashion. Ioban draping was also placed. Prior to incision, a timeout protocol was confirmed with surgical team regarding patient's name including procedures to be performed and location along the right groin. Initial positioning for the robotic assisted ports were selected whereby 15 cm superior to the target anatomy, 0 degree 5 mm laparoscopic trocar entry was performed at the left upper quadrant. The abdomen was insufflated to 15 mmHg which he had tolerated well. Diagnostic laparoscopy demonstrated no injury to bowel, viscera or mesentery. A large defect along the left groin was found and a small defect right side was found. Next, along the epigastrium, 8 mm robot trocar was placed. An 8-mm robotic trocar was placed under direct visualization at the right upper quadrant. An 8 mm port was placed at the left upper quadrant. All trocars were positioned between 10-cm apart from each other. An accessory trocar 12 mm placed along the right upper abdominal wall, lateral. The Da Brendan ALENTY XI robot was primed, draped, prepared for docking along upper abdomen of the patient. The patient was positioned 14 steep Trendelenburg position I then went to the [employer] ALENTY Xi console. The assistant professor of mathematics was at bedside for exchange of the robot arms and equipment. The left indirect inguinal hernia sac was evaginated whereby the peritoneum was scored using Endo scissors with cautery. Once completely reduced into the abdominal cavity, the peritoneal sac of the hernia was stripped. The sac was resected and then passed off for further pathological analysis. The size of the hernia defect was 3 cm with intraoperative films obtained. An inguinal lipoma, subfascial 3 cm was resected. Using a nonabsorbable 2-0 VLOC, the peritoneal defect of the left inguinal hernia sites was closed using a pursestring suture separately. The defect was found to be completely closed with complete reduction of the left indirect inguinal hernia were confirmed. As an onlay, an 11.[address] mesh by [employer] was initially cut in half and entered into the abdominal cavity via the 8 mm trocar. The mesh was tacked to the pelvis using nonabsorbable 2-0 VLOC sutures. Next, careful attention along the right groin demonstrated a smaller right inguinal hernia, indirect. The right inguinal hernia sac was evaginated whereby the peritoneum was scored using Endo scissors with cautery. Once completely reduced into the abdominal cavity, the peritoneal sac of the hernia was resected. The sac was resected and then passed off for further pathological analysis. The size of the hernia defect was 2 cm with intraoperative films obtained. Using a nonabsorbable 2-0 VLOC, the peritoneal defect of the right inguinal hernia site was closed using a running suture. The defect was found to be completely closed with complete reduction of the right indirect inguinal hernia was confirmed. As an onlay, an 11.[address] mesh by Bard was initially cut in half and entered into the abdominal cavity via the 8 mm trocar. The mesh was tacked to the pelvis using nonabsorbable 2-0 VLOC 9-inch length sutures. The robot was undocked from the patient's bedside. I then rescrubbed into the case. Vish Johnston with 0 Vicryl was used to close the right lateral upper quadrant 12 mm trocar incision. Insufflation was released from the abdominal cavity and all instruments were removed from the abdominal cavity. The rest of incisions were reapproximated using 4-0 Monocryl in a running subcuticular fashion. Incisions were cleansed using dilute hydrogen peroxide. Liquid glue was applied to the skin. At the end of the procedure, the needle, sponge and instrument counts had been verified correct by the surgical dental assistant. The patient had tolerated the procedure well and was taken to the postanesthesia care unit in stable condition.
[2023-02-24] MEDS: HYDROcodone/APAP 10-325MG 1 EACH TAB PO PRN ×3 (00:10→21:12)
[2023-02-24] MEDS: ACETAMINOPHEN IV (For NPO) 1,000 MG in EMPTY BAG 1 BAG IVPB SCH ×4 (00:25→17:39)
[2023-02-24] MEDS: HYDROmorphone 1 MG/ML 1 ML SYRINGE IVP PRN ×4 (02:47→17:35)
[2023-02-24] MEDS: LEVOTHYROXINE 100 MCG TAB PO SCH (06:12)
[2023-02-24 08:50] LABS: HCT 31.9 % (39.0-53.0); HGB 10.5 gm/dL (13.0-17.5); Hypochromasia Slight; MCH 33.5 pg (25.0-35.0); MCV 101.4 fL (80.0-100.0); Macrocytosis Slight; Mean Platelet Volume 9.3; Platelet Count 125 k/uL (150-450); Poikilocytosis Slight; RBC 3.15 m/uL (4.30-5.90); RDW 15.5 % (11.5-15.5); WBC 4.5 k/uL (3.8-10.6)
[2023-02-24] MEDS: AMOXIC-POT CLAV 875-125MG 1 EACH TAB PO SCH ×2 (09:30→20:59)
[2023-02-24] MEDS: NIFEdipine XL 30 MG TAB.ER.24 PO SCH (09:30)
[2023-02-24] MEDS: FUROSEMIDE 40 MG TAB PO SCH (09:30)
[2023-02-24] MEDS: SPIRONOLACTONE 25 MG TAB PO SCH (09:31)
[2023-02-24] MEDS: FAMOTIDINE 20 MG/2 ML VIAL IV SCH ×2 (09:35→21:00)
[2023-02-24] MEDS: PANTOPRAZOLE 40 MG/10 ML VIAL IVP SCH (09:35)
[2023-02-24 11:15] LABS: Band Neutrophils % 2 %; Basophils # (M) 0.05 k/uL (0-0.2); Lymphocytes # (M) 0.54 k/uL (1.0-4.8); Metamyelocytes # (M) 0.18 k/uL (0); Metamyelocytes % 4 %; Monocytes # (M) 0.32 k/uL (0-1.0); Myelocytes # (M) 0.09 k/uL (0); Myelocytes % 2 %; Neutrophils % (M) 72 %; Nucleated Red Blood Cells 0 /100 WBC (0-0); Total Cells Counted 200
--- NOTE | 2023-02-24 12:32 | P.PN ---
Subjective Progress Note Date: 02/22/23 Principal diagnosis: Decompensated cirrhosis of liver This is a pleasant 67-year-old male who presented to the emergency department with concerns for incarcerated hernia. Patient has history of bilateral inguinal hernias and is supposed to undergo surgical intervention with Dr. Fishman in March of this year however he was concerned for recurrent incarceration. She presented to the emergency department with incarcerated hernia that was eventually reduced. Patient has a past medical history including alcoholic cirrhosis of the liver with ascites diagnosed in 2020, po rtal hypertension, GI bleed, atrial fibrillation, COPD, hypothyroidism and arthritis. The patient follows with Dr. Light for his liver cirrhosis and ascites. States that he did see a specialist to [facility] in November or December for possible TIPS procedure however they did not feel it was necessary. He has been getting paracentesis every 1-2 months. He is currently on Lasix 40 mg daily and spironolactone 200 mg daily. He is denying any abdominal pain, no chest pain, shortness of breath, nausea or vomiting. There is no concerns for any GI bleed. Tentative plan is for hernia repair on . General surgery asked us to see patient regarding cirrhosis and portal hypertension. He did undergo a CT of the abdomen and pelvis with contrast that reports small amount of ascites, cirrhotic appearing liver with a 7 mm hyperdense lesion concerning for hepatocellular carcinoma. Today he underwent an ultrasound for paracentesis which reported minimal ascites, not enough for paracentesis. 02/22/2023 Patient was seen and examined his follow-up. No acute changes through the night. Plan is to proceed with inguinal hernia repair . He denies any abdominal pain, nausea vomiting. Objective - Vital Signs Vital signs: Vital Signs Temp 97.8 F 02/22/23 07:01 Pulse 56 L 02/22/23 07:01 Resp 16 02/22/23 07:01 BP 109/69 02/22/23 07:01 Pulse Ox 99 02/22/23 07:01 FiO2 Intake & Output 02/21/23 02/22/23 02/22/23 18:59 06:59 18:59 Other: Voiding Method Toilet Urinal # Voids 4 3 - Exam General appearance: The patient is alert, oriented, appears in no acute distress. HET: Head is normocephalic and atraumatic. Conjunctiva pink. Sclera anicteric. Neck: Supple without lymphadenopathy. Abdomen: Soft, nontender, nondistended with bowel sounds. No guarding or rigidity. Extremities: Normal skin color and turgor. Pedal edema. Skin: No rashes, no jaundice Neurological: No focal deficits. Alert and oriented. - Labs CBC & Chem 7: 02/24/23 06:27 02/23/23 06:25 Assessment and Plan (1) Decompensation of cirrhosis of liver Narrative/Plan: 67-year-old male diagnosed with alcoholic liver cirrhosis approximately 2 years ago with portal hypertension who follows with his PCP Dr. Light for underlying liver disease. States he does not follow with liver specialist has seen one in November or December of this year for possible TIPS procedure which they felt he did not need. They did at that time increase his spironolactone to 200 mg daily. Patient is without any concerning symptoms, no evidence of GI bleed, liver enzymes are normal however patient did have a CT of the abdomen and pelvis that is reporting 7 mm hyperdense lesion in the liver concerning for hepatocellular carcinoma. Further investigation with MRI can be done as an outpatient. Unfortunately this patient has a history of bilateral inguinal hernias and presented with incarcerated left inguinal hernia which was able to be reduced. There is concern for reoccurrence of incarceration, and tentative plan is for left inguinal hernia repair. This is a patient with decompensated cirrhosis of the liver who is high risk for surgery including increased risk for infection, bleeding, increased ascites, ascitic fluid through surgical sites, as well as increased risk for liver failure. This is discussed with the patient seemingly understands and verbalizes understanding. Current Visit: Yes Status: Acute Code(s): K72.90 - HEPATIC FAILURE, UNSPECIFIED WITHOUT COMA; K74.60 - UNSPECIFIED CIRRHOSIS OF LIVER SNOMED Code(s): 683501594 (2) Liver cirrhosis, alcoholic Narrative/Plan: 67-year-old male diagnosed with alcoholic liver cirrhosis approximately 2 years ago with portal hypertension who follows with his PCP Dr. Light for underlying liver disease. States he does not follow with liver specialist has seen one in November or December of this year for possible TIPS procedure which they felt he did not need. They did at that time increase his Prinivil lactone to 200 mg daily. Patient actually is presenting for inguinal hernia with recurrent incarceration. Plan is for surgery during this hospitalization. Gastroenterology consulted to follow for liver cirrhosis and portal hy pertension. Patient is without any concerning symptoms, no evidence of GI bleed, liver enzymes are normal however patient did have a CT of the abdomen and pelvis that is reporting 7 mm hyperdense lesion in the liver concerning for hepatocellular carcinoma. Current Visit: No Status: Acute Code(s): K70.30 - ALCOHOLIC CIRRHOSIS OF LIVER WITHOUT ASCITES SNOMED Code(s): 033921393 (3) History of alcohol abuse Current Visit: Yes Status: Acute Code(s): F10.11 - ALCOHOL ABUSE, IN REMISSION SNOMED Code(s): 204444390 (4) Inguinal hernia Current Visit: Yes Status: Acute Code(s): K40.90 - UNIL INGUINAL HERNIA, W/O OBST OR GANGR, NOT SPCF RECUR SNOMED Code(s): 153653880 (5) Atrial fibrillation Current Visit: No Status: Acute Code(s): I48.91 - UNSPECIFIED ATRIAL FIBRILLATION SNOMED Code(s): 29311389 (6) Abnormal computed tomography of abdomen and pelvis Current Visit: Yes Status: Acute Code(s): R93.5 - ABN FINDINGS ON DX IMAGING OF ABD REGIONS, INC RETROPERITON SNOMED Code(s): 42211236161613719 Plan: 1. Continue symptomatic and supportive care 2. Will plan for MRI of the liver as an outpatient 3. AFP ordered 4. Continue diuretics as ordered 5. Low-sodium diet 6. Patient has decompensated cirrhosis of the liver and is high risk for surgery 7. Tentative plan for inguinal hernia repair on with Dr. Fishman Thank you for this consultation, we will be on standby. Dr. Anderson Power I agree with the dictator's note, documented as a scribe by Niki Davis.
--- NOTE | 2023-02-24 12:36 | P.PN ---
Subjective Progress Note Date: 02/24/23 Principal diagnosis: Decompensated cirrhosis of liver This is a pleasant 67-year-old male who presented to the emergency department with concerns for incarcerated hernia. Patient has history of bilateral inguinal hernias and is supposed to undergo surgical intervention with Dr. Fishman in March of this year however he was concerned for recurrent incarceration. She presented to the emergency department with incarcerated hernia that was eventually reduced. Patient has a past medical history including alcoholic cirrhosis of the liver with ascites diagnosed in 2020, po rtal hypertension, GI bleed, atrial fibrillation, COPD, hypothyroidism and arthritis. The patient follows with Dr. Light for his liver cirrhosis and ascites. States that he did see a specialist to [facility] in November or December for possible TIPS procedure however they did not feel it was necessary. He has been getting paracentesis every 1-2 months. He is currently on Lasix 40 mg daily and spironolactone 200 mg daily. He is denying any abdominal pain, no chest pain, shortness of breath, nausea or vomiting. There is no concerns for any GI bleed. Tentative plan is for hernia repair on . General surgery asked us to see patient regarding cirrhosis and portal hypertension. He did undergo a CT of the abdomen and pelvis with contrast that reports small amount of ascites, cirrhotic appearing liver with a 7 mm hyperdense lesion concerning for hepatocellular carcinoma. Today he underwent an ultrasound for paracentesis which reported minimal ascites, not enough for paracentesis. 02/22/2023 Patient was seen and examined his follow-up. No acute changes through the night. Plan is to proceed with inguinal hernia repair . He denies any abdominal pain, nausea vomiting. 02/23/2023 Patient seen and examined as a follow-up. His AFP was less than 3.0. He had surgery yesterday with Dr. Fishman states everything went well. She is having some surgical discomfort otherwise states he's feeling much better. Denies any fevers or chills. Tolerating a regular diet. Objective - Vital Signs Vital signs: Vital Signs Temp 98.2 F 02/24/23 08:15 Pulse 82 02/24/23 08:15 Resp 12 02/24/23 08:15 BP 107/70 02/24/23 08:15 Pulse Ox 98 11/16/23 08:15 FiO2 Intake & Output 02/23/23 02/24/23 02/24/23 18:59 06:59 18:59 Intake Total 1300 Output Total 0 405 Balance 0 895 Intake: IV 1300 Output: Urine 400 Stool 0 0 Estimated Blood Loss 5 Other: Voiding Method Toilet Toilet Urinal Urinal # Voids 2 2 # Bowel Movements 1 0 - Exam General appearance: The patient is alert, oriented, appears in no acute distress. HET: Head is normocephalic and atraumatic. Conjunctiva pink. Sclera anicteric. Neck: Supple without lymphadenopathy. Abdomen: Soft, mild surgical tenderness, nondistended. No guarding or rigidity. Extremities: Normal skin color and turgor. Pedal edema. Skin: No rashes, no jaundice Neurological: No focal deficits. Alert and oriented. - Labs CBC & Chem 7: 02/24/23 06:27 02/23/23 06:25 Labs: Abnormal Lab Results - Last 24 Hours (Table) 02/23/23 02/23/23 02/23/23 Range/Units 06:25 06:25 06:25 WBC 2.84 L (4.50-10.00) X 10*3/uL RBC 2.82 L (4.40-5.60) X 10*6/uL Hgb 9.4 L (13.0-17.0) g/dL Hct 29.1 L (39.6-50.0) % MCV 103.2 H (80.0-97.0) FL MCH 33.3 H (27.0-32.0) pg RDW 15.8 H (11.5-14.5) % Plt Count 108 L (140-440) X 10*3/uL MPV 9.2 L (9.5-12.2) FL Lymphocytes # (Manual) 0.54 L (0.90-5.00) X 10*3/uL Monocytes # (Manual) 0.17 L (0.20-1.00) X 10*3/uL Eosinophils # (Manual) 0 L (0.04-0.35) X 10*3/uL PT 12.0 H (9.9-11.9) sec INR 1.12 H (0.93-1.11) sec Anion Gap 12.30 H (4.00-12.00) mmol/L BUN/Creatinine Ratio 11.80 L (12.00-20.00) Ratio Assessment and Plan (1) Decompensation of cirrhosis of liver Narrative/Plan: 67-year-old male diagnosed with alcoholic liver cirrhosis approximately 2 years ago with portal hypertension who follows with his PCP Dr. Light for underlying liver disease. States he does not follow with liver specialist has seen one in November or December of this year for possible TIPS procedure which they felt he did not need. They did at that time increase his spironolactone to 200 mg daily. Patient is without any concerning symptoms, no evidence of GI bleed, liver enzymes are normal however patient did have a CT of the abdomen and pelvis that is reporting 7 mm hyperdense lesion in the liver concerning for hepatocellular carcinoma. Further investigation with MRI can be done as an outpatient. Unfortunately this patient has a history of bilateral inguinal hernias and presented with incarcerated left inguinal hernia which was able to be reduced. There is concern for reoccurrence of incarceration, and tentative plan is for left inguinal hernia repair. This is a patient with decompensated cirrhosis of the liver who is high risk for surgery including increased risk for infection, bleeding, increased ascites, ascitic fluid through surgical sites, as well as increased risk for liver failure. This is discussed with the patient seemingly understands and verbalizes understanding. Current Visit: Yes Status: Acute Code(s): K72.90 - HEPATIC FAILURE, UNSPECIFIED WITHOUT COMA; K74.60 - UNSPECIFIED CIRRHOSIS OF LIVER SNOMED Code(s): 762814450 (2) Liver cirrhosis, alcoholic Narrative/Plan: 67-year-old male diagnosed with alcoholic liver cirrhosis approximately 2 years ago with portal hypertension who follows with his PCP Dr. Light for underlying liver disease. States he does not follow with liver specialist has seen one in November or December of this year for possible TIPS procedure which they felt he did not need. They did at that time increase his Prinivil lactone to 200 mg daily. Patient actually is presenting for inguinal hernia with recurrent incarceration. Plan is for surgery during this hospitalization. Gastroenterology consulted to follow for liver cirrhosis and portal hype rtension. Patient is without any concerning symptoms, no evidence of GI bleed, liver enzymes are normal however patient did have a CT of the abdomen and pelvis that is reporting 7 mm hyperdense lesion in the liver concerning for hepatocellular carcinoma. Current Visit: No Status: Acute Code(s): K70.30 - ALCOHOLIC CIRRHOSIS OF LIVER WITHOUT ASCITES SNOMED Code(s): 333440766 (3) History of alcohol abuse Current Visit: Yes Status: Acute Code(s): F10.11 - ALCOHOL ABUSE, IN REMISSION SNOMED Code(s): 329293972 (4) Inguinal hernia Current Visit: Yes Status: Acute Code(s): K40.90 - UNIL INGUINAL HERNIA, W/O OBST OR GANGR, NOT SPCF RECUR SNOMED Code(s): 000466459 (5) Atrial fibrillation Current Visit: No Status: Acute Code(s): I48.91 - UNSPECIFIED ATRIAL FIBRILLATION SNOMED Code(s): 85540330 (6) Abnormal computed tomography of abdomen and pelvis Current Visit: Yes Status: Acute Code(s): R93.5 - ABN FINDINGS ON DX IMAGING OF ABD REGIONS, INC RETROPERITON SNOMED Code(s): 75138371957352357 Plan: 1. Continue symptomatic and supportive care 2. Will plan for MRI of the liver as an outpatient 3. AFP ordered, within normal limits 4. Continue diuretics as ordered 5. Low-sodium diet 6. Patient has decompensated cirrhosis of the liver and is high risk for surgery 7. Patient is status post bilateral inguinal hernia repair Thank you for this consultation, he should follow-up with gastroenterology In 2- [address] Anderson Power I agree with the dictator's note, documented as a scribe by Niki Davis.
--- NOTE | 2023-02-24 13:57 | P.PN ---
Subjective Progress Note Date: 02/24/23 CHIEF COMPLAINT: Bilateral inguinal hernias HISTORY OF PRESENT ILLNESS: Patient is postop day #1 status post robotic- assisted laparoscopic repair of initial reducible right direct inguinal hernia with mesh and repair of incarcerated left direct inguinal hernia with mesh and repair of abdominal ventral hernia. He also had drainage of 2.5 L of abdominal ascites. Patient does complain of abdominal pain. The report is controlled. Denies any nausea or vomiting. He is tolerating diet. Afebrile. WBC 4.5 Hgb 10.5 platelets 125 PHYSICAL EXAM: VITAL SIGNS: Reviewed GENERAL: Well-developed in no acute distress. HEENT: No sclera icterus. Extraocular movements grossly intact. Moist buccal mucosa. Head is atraumatic, normocephalic. Hears conversational speech. No nasal drainage. NECK: Supple without lymphadenopathy. CHEST: Non-labored respirations and equal bilateral excursions. CARDIOVASCULAR: Palpable 2+ radial pulses. ABDOMEN: Soft. Nondistended. Incision site clean dry and intact MUSCULOSKELETAL: No clubbing or cyanosis. NEUROLOGIC: No focal or lateralizing signs. Cranial nerves II through XII grossly intact. PSYCH: Appropriate affect. Alert and oriented to person, place and time. SKIN: Well perfused. Good skin turgor. ASSESSMENT: 1. Incarcerated left inguinal hernia with bowel obstruction, initial 2. Right inguinal hernia, initial 3. Cirrhosis of the liver 4. Abdominal ascites 5. Abdominal ventral hernia, initial PLAN: -Patient can be discharged from surgical standpoint -Anticipate discharge tomorrow -Continue pain management -Continue low-sodium diet -Encouraged patient to ambulate -Abdominal binder ordered Physician Insurance Advisor note has been reviewed by physician. Signing provider agrees with the documented findings, assessment, and plan of care. Objective - Vital Signs Vital signs: Vital Signs Temp 98.2 F 02/24/23 08:15 Pulse 82 02/24/23 08:15 Resp 12 02/24/23 08:15 BP 107/70 02/24/23 08:15 Pulse Ox 98 02/24/23 08:15 FiO2 Intake & Output 02/23/23 02/24/23 02/24/23 18:59 06:59 18:59 Intake Total 1300 Output Total 0 405 Balance 0 895 Intake: IV 1300 Output: Urine 400 Stool 0 0 Estimated Blood Loss 5 Other: Voiding Method Toilet Toilet Urinal Urinal # Voids 2 2 # Bowel Movements 1 0 - Labs CBC & Chem 7: 02/24/23 06:27 02/23/23 06:25 Labs: Abnormal Lab Results - Last 24 Hours (Table) 02/23/23 02/23/23 02/23/23 Range/Units 06:25 06:25 06:25 WBC 2.84 L (4.50-10.00) X 10*3/uL RBC 2.82 L (4.40-5.60) X 10*6/uL Hgb 9.4 L (13.0-17.0) g/dL Hct 29.1 L (39.6-50.0) % MCV 103.2 H (80.0-97.0) FL MCH 33.3 H (27.0-32.0) pg RDW 15.8 H (11.5-14.5) % Plt Count 108 L (140-440) X 10*3/uL MPV 9.2 L (9.5-12.2) FL Lymphocytes # (Manual) 0.54 L (0.90-5.00) X 10*3/uL Monocytes # (Manual) 0.17 L (0.20-1.00) X 10*3/uL Eosinophils # (Manual) 0 L (0.04-0.35) X 10*3/uL PT 12.0 H (9.9-11.9) sec INR 1.12 H (0.93-1.11) sec Anion Gap 12.30 H (4.00-12.00) mmol/L BUN/Creatinine Ratio 11.80 L (12.00-20.00) Ratio 02/24/23 Range/Units 06:27 WBC (4.50-10.00) X 10*3/uL RBC 3.15 L (4.40-5.60) X 10*6/uL Hgb 10.5 L (13.0-17.0) g/dL Hct 31.9 L (39.6-50.0) % MCV 101.4 H (80.0-97.0) FL MCH (27.0-32.0) pg RDW (11.5-14.5) % Plt Count 125 L (140-440) X 10*3/uL MPV (9.5-12.2) FL Lymphocytes # (Manual) (0.90-5.00) X 10*3/uL Monocytes # (Manual) (0.20-1.00) X 10*3/uL Eosinophils # (Manual) (0.04-0.35) X 10*3/uL PT (9.9-11.9) sec INR (0.93-1.11) sec Anion Gap (4.00-12.00) mmol/L BUN/Creatinine Ratio (12.00-20.00) Ratio
--- NOTE | 2023-02-24 17:06 | P.PN ---
Subjective Progress Note Date: 02/24/23 This is 67-year-old gentleman with past medical history significant for COPD, atrial fibrillation, hypothyroidism, GI bleed, bilateral inguinal hernias , alcoholic cirrhosis , ascites , portal hypertension and multiple other medical issues presented to the ER with complaints of incarcerated hernia. Reports last paracentesis was on 02/14/2023 with 3 liters removed. States he had gone 6 weeks between paracentesis. Abdomen/pelvis CT pending. Denies nausea ,vomiting. Denies abdominal pain. Afebrile. 02/22/2023 Abdominal ultrasound reported minimal ascites .CT of abdomen and pelvis reported hepatic cirrhosis with findings of portal hypertension including splenomegaly, small moderate-sized volume ascites, hyperdense 7 mm focus within the right hepatic dome concerning for possible hepatocellular carcinoma, futher out-patient MRI recommended, numerous bilateral parapelvic lesions redemonst rated, increased in size from 2020, may represent hemorrhagic/proteinaceous cysts, redemonstrated indeterminate right presacral soft tissue lesion stable. Afebrile, WBC 2.51, hemoglobin decreased to 9, platelets decreased 116, renal function stable. 02/23/2023 afebrile, WBC 2.84, hemoglobin 9.4, platelets 108, INR 1.12. Bicarb 25.7, BUN 11.8, creatinine 1. Maintaining O2 sats in the high 90s on room air. Currently complaining of chronic back pain and tooth pain. Denies chest pain, palpitations or shortness of breath. Scheduled for surgery tomorrow. 02/24/2023 status post robotic-assisted laparoscopic repair of initial reducible right direct inguinal hernia with mesh and repair of incarcerated left direct inguinal hernia with mesh and repair of abdominal ventral hernia with drainage of abdominal ascites 2.5 L. Tolerated procedure well. Reports abdominal pain/" soreness " controlled with current pain management and that he has significant relief. Tolerating low sodium regular diet. Denies nausea vomiting or diarrhea. No flatus. Afebrile, normal WBC. Hemoglobin 10.5, platelets 125. Denies chest pain, palpitations or shortness of breath. Continue O2 sats in the mid to high 90s on room air. Objective - Vital Signs Vital signs: Vital Signs Temp 97.4 F L 02/24/23 12:02 Pulse 97 02/24/23 12:02 Resp 14 02/24/23 12:02 BP 104/70 02/24/23 12:02 Pulse Ox 95 02/24/23 12:02 FiO2 Intake & Output 02/23/23 02/24/23 02/24/23 18:59 06:59 18:59 Intake Total 1300 Output Total 0 405 0 Balance 0 895 0 Intake: IV 1300 Output: Urine 400 Stool 0 0 0 Estimated Blood Loss 5 Other: Voiding Method Toilet Toilet Toilet Urinal Urinal Urinal # Voids 2 2 # Bowel Movements 1 0 - Exam GENERAL: Sitting up in bed, Alert and oriented x3, no acute distress. HEENT: Normocephalic, atraumatic .Pupils are reactive,Poor dentition CARDIOVASCULAR: S1 and S2 present. Regular, + systolic murmur, rubs, or gallops. PULMONARY: Unlabored, Equal air entry, Bilateral bases diminished. ABDOMEN: Soft, status post surgery ,No guarding or rigidity. EXTREMITIES: No bilateral lower extremity edema,no calf tenderness. NEUROLOGICAL: Gross neurological examination did not reveal any focal deficits. SKIN: No rashes, warm and dry. - Labs CBC & Chem 7: 02/24/23 06:27 02/23/23 06:25 Labs: Abnormal Lab Results - Last 24 Hours (Table) 02/23/23 02/24/23 Range/Units 06:25 06:27 RBC 3.15 L (4.30-5.90) m/uL Hgb 10.5 L (13.0-17.5) gm/dL Hct 31.9 L (39.0-53.0) % MCV 101.4 H (80.0-100.0) fL Plt Count 125 L (150-450) k/uL Neutrophils # (Manual) 1.59 L (1.80-7.70) X 10*3/uL Lymphocytes # (Manual) 0.54 L (1.0-4.8) k/uL Metamyelocytes # (Man) 0.18 H (0) k/uL Myelocytes # (Manual) 0.09 H (0) k/uL Promyelocytes # (Man) 0.03 H (0) k/uL Assessment and Plan Assessment: -Bilateral inguinal hernias ,left greater than right, recent incarceration of small bowel, status post robotic-assisted , laparoscopic ,surgical repair with drainage of abdominal ascites 2.5 L. -Possible right hepatic dome, hyperdense 7mm focus,concerning for possible hepatocellular carcinoma, futher out-patient MRI recommended. -chronic anemia, history of nonbleeding AVMs, underlying liver cirrhosis, portal hypertension. Moderate to severe portal hypertensive gastropathy. -History of Pancytopenia suspected to be related to bone marrow suppression from alcohol abuse. Patient previously advised to follow-up with hematology OP. -Ascites,secondary to cirrhosis, status post paracentesis on Tuesday, February 14, 3 L removed. Reports 6 weeks since prior paracentesis. -Chronic Paroxysmal atrial fibrillation, not on anticoagulation due to anemia -Nicotine use: Counseling provided -Pulmonary hypertension -Moderate to severe mitral regurgitation -Chronic diastolic congestive heart failure current EF is 55% -Chronic alcohol abuse with alcoholic liver cirrhosis -Hypertension -Hypothyroidism -Hypoalbuminemia -COPD -Actively grieving, patient's recently passed. Plan: Continue on current medication regime ,monitoring and symptomatic treatment. Maintain aggressive pulmonary toileting with incentive spirometer reinforced . Diet advancement/pain management as per general surgery. Increase ambulation as tolerated. Smoking cessation reinforced. Discharge planning tentatively for tomorrow pending general surgery final DC recommendations and clearance. The impression and plan of care has been dictated as directed. : I performed a history and examination of this patient, discussed the same with the dictator. I agree with the dictator's note ,documented as a scribe. Any additional findings or plans will be noted.
[2023-02-25] MEDS: HYDROmorphone 1 MG/ML 1 ML SYRINGE IVP PRN ×3 (00:53→18:44)
[2023-02-25] MEDS: ACETAMINOPHEN IV (For NPO) 1,000 MG in EMPTY BAG 1 BAG IVPB SCH ×4 (00:54→19:02)
[2023-02-25] MEDS: HYDROcodone/APAP 10-325MG 1 EACH TAB PO PRN ×2 (05:05→13:49)
[2023-02-25] MEDS: LEVOTHYROXINE 100 MCG TAB PO SCH (06:25)
[2023-02-25 07:50] VITALS: BMI 25.8
[2023-02-25] MEDS: SPIRONOLACTONE 25 MG TAB PO SCH (09:23)
[2023-02-25] MEDS: FUROSEMIDE 40 MG TAB PO SCH (09:23)
[2023-02-25] MEDS: NIFEdipine XL 30 MG TAB.ER.24 PO SCH (09:23)
[2023-02-25] MEDS: AMOXIC-POT CLAV 875-125MG 1 EACH TAB PO SCH ×2 (09:23→22:03)
[2023-02-25] MEDS: FAMOTIDINE 20 MG/2 ML VIAL IV SCH ×2 (09:24→22:05)
[2023-02-25] MEDS: PANTOPRAZOLE 40 MG/10 ML VIAL IVP SCH (09:24)
[2023-02-25 10:53] LABS: HCT 28.4 % (39.6-50.0); MCH 32.5 pg (27.0-32.0); MCHC 31.7 g/dL (32.0-37.0); MCV 102.5 FL (80.0-97.0); Mean Platelet Volume 9.6 FL (9.5-12.2); NRBC Per 100 WBC 0 X 10*3/uL (0.00-0.01); Platelet Count 110 X 10*3/uL (140-440); RBC 2.77 X 10*6/uL (4.40-5.60); WBC 4.81 X 10*3/uL (4.50-10.00)
[2023-02-25 11:11] LABS: BUN/Creat Ratio 9.36 Ratio (12.00-20.00); Blood Urea Nitrogen 10.3 mg/dL (9.0-27.0); Calcium 8.9 mg/dL (8.7-10.3); Carbon Dioxide 26.3 mmol/L (21.6-31.8); Chloride 100 mmol/L (96-109); Glucose 109 mg/dL (70-110); Potassium 3.8 mmol/L (3.5-5.5); Sodium 137 mmol/L (135-145)
[2023-02-25 11:24] LABS: Eosinophils # (M) 0.05 X 10*3/uL (0.04-0.35); Lymphocytes # (M) 0.48 X 10*3/uL (0.90-5.00); Metamyelocytes % 2 % (0-0); Monocytes # (M) 0.43 X 10*3/uL (0.20-1.00); Myelocytes % 1 % (0-0); Neutrophils # (M) 3.61 X 10*3/uL (1.80-7.70); Neutrophils % (M) 75 %; Stomatocytes 2+
[2023-02-25] MEDS ORDERED: SILVER NITRATE APPLICATOR 1 EACH STICK..EA. TOPICAL STA (11:36)
--- NOTE | 2023-02-25 12:47 | P.PN ---
Subjective Progress Note Date: 02/25/23 CHIEF COMPLAINT: Bilateral inguinal hernias HISTORY OF PRESENT ILLNESS: Patient is postop day #2 status post Robotic- assisted laparoscopic repair of initial reducible right direct inguinal hernia with mesh and repair of incarcerated left direct inguinal hernia with mesh and repair of abdominal ventral hernia. He also had drainage of 2.5 L of abdominal ascites. Patient complains of bleeding for his incision site since yesterday afternoon after he coughed. Nursing staff has changed the abdominal dressing 3 times. Abdominal pain controlled. Afebrile. WBC 4.81 HGB down from 10.5 to 9.0 Plt 110 PHYSICAL EXAM: VITAL SIGNS: Reviewed GENERAL: Well-developed in no acute distress. HEENT: No sclera icterus. Extraocular movements grossly intact. Moist buccal mucosa. Head is atraumatic, normocephalic. Hears conversational speech. No nasal drainage. NECK: Supple without lymphadenopathy. CHEST: Non-labored respirations and equal bilateral excursions. CARDIOVASCULAR: Palpable 2+ radial pulses. ABDOMEN: Soft. Nondistended. bleeding with ascites fluid from 2nd incision from the right of the abdomen. clotting visible. even with compression dressing it continues to ooze from the incision. MUSCULOSKELETAL: No clubbing or cyanosis. NEUROLOGIC: No focal or lateralizing signs. Cranial nerves II through XII grossly intact. PSYCH: Appropriate affect. Alert and oriented to person, place and time. SKIN: Well perfused. Good skin turgor. ASSESSMENT: 1. Incarcerated left inguinal hernia with bowel obstruction, initial 2. Right inguinal hernia, initial 3. Cirrhosis of the liver 4. Abdominal ascites 5. Abdominal ventral hernia, initial PLAN: -Dr. Fishman applied Silver Nitrate to the incision and reapplied gauze and compression dressing. -Patient can be discharged from surgical standpoint when medically cleared -Continue pain management. On [place] at home -Continue low-sodium diet -Encouraged patient to ambulate -New Abdominal binder ordered Physician Manager Of Financial Planning note has been reviewed by physician. Signing provider agrees with the documented findings, assessment, and plan of care. Objective - Vital Signs Vital signs: Vital Signs Temp 98.7 F 02/25/23 12:05 Pulse 89 02/25/23 12:05 Resp 12 02/25/23 12:05 BP 110/73 02/25/23 12:05 Pulse Ox 95 02/25/23 12:05 FiO2 Intake & Output 02/24/23 02/25/23 02/25/23 18:59 06:59 18:59 Intake Total 250 Output Total 0 Balance 250 Weight 96.162 kg Intake: Intake, IV Titration 250 Amount ACETAMINOPHEN IV (For NPO 200 ) 1,000 mg In Empty Bag 1 bag @ 400 mls/hr IVPB Q6HR JERRY Rx#:[id number] ceFAZolin 2 gm In Sodium 50 Chloride 0.9% 50 ml @ 100 mls/hr IVPB Q8H JERRY Rx#: [id number] Output: Stool 0 Other: Voiding Method Toilet Toilet Urinal Urinal # Voids 1 - Labs CBC & Chem 7: 02/25/23 06:39 02/25/23 06:39 Labs: Abnormal Lab Results - Last 24 Hours (Table) 02/25/23 02/25/23 Range/Units 06:39 06:39 RBC 2.77 L (4.40-5.60) X 10*6/uL Hgb 9.0 L (13.0-17.0) g/dL Hct 28.4 L (39.6-50.0) % MCV 102.5 H (80.0-97.0) FL MCH 32.5 H (27.0-32.0) pg MCHC 31.7 L (32.0-37.0) g/dL RDW 16.0 H (11.5-14.5) % Plt Count 110 L (140-440) X 10*3/uL Lymphocytes # (Manual) 0.48 L (0.90-5.00) X 10*3/uL Stomatocytes 2+ A BUN/Creatinine Ratio 9.36 L (12.00-20.00) Ratio
--- NOTE | 2023-02-25 13:58 | P.PN ---
Subjective Progress Note Date: 02/25/23 This is 67-year-old gentleman with past medical history significant for COPD, atrial fibrillation, hypothyroidism, GI bleed, bilateral inguinal hernias , alcoholic cirrhosis , ascites , portal hypertension and multiple other medical issues presented to the ER with complaints of incarcerated hernia. Reports last paracentesis was on 02/14/2023 with 3 liters removed. States he had gone 6 weeks between paracentesis. Abdomen/pelvis CT pending. Denies nausea ,vomiting. Denies abdominal pain. Afebrile. 02/22/2023 Abdominal ultrasound reported minimal ascites .CT of abdomen and pelvis reported hepatic cirrhosis with findings of portal hypertension including splenomegaly, small moderate-sized volume ascites, hyperdense 7 mm focus within the right hepatic dome concerning for possible hepatocellular carcinoma, futher out-patient MRI recommended, numerous bilateral parapelvic lesions redemonst rated, increased in size from 2020, may represent hemorrhagic/proteinaceous cysts, redemonstrated indeterminate right presacral soft tissue lesion stable. Afebrile, WBC 2.51, hemoglobin decreased to 9, platelets decreased 116, renal function stable. 02/23/2023 afebrile, WBC 2.84, hemoglobin 9.4, platelets 108, INR 1.12. Bicarb 25.7, BUN 11.8, creatinine 1. Maintaining O2 sats in the high 90s on room air. Currently complaining of chronic back pain and tooth pain. Denies chest pain, palpitations or shortness of breath. Scheduled for surgery tomorrow. 02/24/2023 status post robotic-assisted laparoscopic repair of initial reducible right direct inguinal hernia with mesh and repair of incarcerated left direct inguinal hernia with mesh and repair of abdominal ventral hernia with drainage of abdominal ascites 2.5 L. Tolerated procedure well. Reports abdominal pain/" soreness " controlled with current pain management and that he has significant relief. Tolerating low sodium regular diet. Denies nausea vomiting or diarrhea. No flatus. Afebrile, normal WBC. Hemoglobin 10.5, platelets 125. Denies chest pain, palpitations or shortness of breath. Continue O2 sats in the mid to high 90s on room air. 02/25/2023 patient reports he was moving around yesterday, coughed and started having bleeding from incisional sites on the right side. Dressings were changed/reinforced X 3. Hemoglobin decreased to 9, platelets decreased to 110. Afebrile, normal WBC. Abdominal pain controlled. Denies chest pain, palpitations or shortness of breath. Occasional mild congested cough. Maintaining O2 sats in the high 90s on room air. Objective - Vital Signs Vital signs: Vital Signs Temp 98.7 F 02/25/23 07:14 Pulse 71 02/25/23 07:14 Resp 16 02/25/23 07:14 BP 108/61 02/25/23 07:14 Pulse Ox 98 02/25/23 07:14 FiO2 Intake & Output 02/24/23 02/25/23 02/25/23 18:59 06:59 18:59 Intake Total 250 Output Total 0 Balance 250 Weight 96.162 kg Intake: Intake, IV Titration 250 Amount ACETAMINOPHEN IV (For NPO 200 ) 1,000 mg In Empty Bag 1 bag @ 400 mls/hr IVPB Q6HR JERRY Rx#:[id number] ceFAZolin 2 gm In Sodium 50 Chloride 0.9% 50 ml @ 100 mls/hr IVPB Q8H JERRY Rx#: [id number] Output: Stool 0 Other: Voiding Method Toilet Toilet Urinal Urinal # Voids 1 - Exam GENERAL: Sitting up in bed, Alert and oriented x3, no acute distress. HEENT: Normocephalic, atraumatic .Pupils are reactive,Poor dentition CARDIOVASCULAR: S1 and S2 present. Regular, + systolic murmur, rubs, or gallops. PULMONARY: Unlabored, Equal air entry, Bilateral bases diminished. ABDOMEN: Soft, status post surgery ,No guarding or rigidity. Serosanguineous drainage from right side surgical site of abdomen. Abdominal binder present with drainage. EXTREMITIES: No bilateral lower extremity edema,no calf tenderness. NEUROLOGICAL: Gross neurological examination did not reveal any focal deficits. SKIN: No rashes, warm and dry. - Labs CBC & Chem 7: 02/25/23 06:39 02/25/23 06:39 Labs: Abnormal Lab Results - Last 24 Hours (Table) 02/23/23 02/24/23 Range/Units 06:25 06:27 RBC 3.15 L (4.30-5.90) m/uL Hgb 10.5 L (13.0-17.5) gm/dL Hct 31.9 L (39.0-53.0) % MCV 101.4 H (80.0-100.0) fL Plt Count 125 L (150-450) k/uL Neutrophils # (Manual) 1.59 L (1.80-7.70) X 10*3/uL Lymphocytes # (Manual) 0.54 L (1.0-4.8) k/uL Metamyelocytes # (Man) 0.18 H (0) k/uL Myelocytes # (Manual) 0.09 H (0) k/uL Promyelocytes # (Man) 0.03 H (0) k/uL Assessment and Plan Assessment: -Bilateral inguinal hernias ,left greater than right, recent incarceration of small bowel, status post robotic-assisted , laparoscopic ,surgical repair with drainage of abdominal ascites 2.5 L. -Possible right hepatic dome, hyperdense 7mm focus,concerning for possible hepatocellular carcinoma, futher out-patient MRI recommended. -chronic anemia, history of nonbleeding AVMs, underlying liver cirrhosis, portal hypertension. Moderate to severe portal hypertensive gastropathy. -History of Pancytopenia suspected to be related to bone marrow suppression from alcohol abuse. Patient previously advised to follow-up with hematology OP. -Ascites,secondary to cirrhosis, status post paracentesis on Tuesday, February 14, 3 L removed. Reports 6 weeks since prior paracentesis. -Chronic Paroxysmal atrial fibrillation, not on anticoagulation due to anemia -Nicotine use: Counseling provided -Pulmonary hypertension -Moderate to severe mitral regurgitation -Chronic diastolic congestive heart failure current EF is 55% -Chronic alcohol abuse with alcoholic liver cirrhosis -Hypertension -Hypothyroidism -Hypoalbuminemia -COPD -Actively grieving, patient's recently passed. Plan: Continue on current medication regime ,monitoring and symptomatic treatment. Surgical evaluation pending. Close monitoring of hemoglobin and platelets with repeat labs ordered for a.m. Maintain aggressive pulmonary toileting with incentive spirometer reinforced . Smoking cessation reinforced. Discharge planning tentatively for tomorrow. The impression and plan of care has been dictated as directed. : I performed a history and examination of this patient, discussed the same with the dictator. I agree with the dictator's note ,documented as a scribe. Any additional findings or plans will be noted.
--- NOTE | 2023-02-25 14:13 | P.PN ---
Subjective Progress Note Date: 02/25/23 Principal diagnosis: Decompensated cirrhosis of liver This is a pleasant 67-year-old male who presented to the emergency department with concerns for incarcerated hernia. Patient has history of bilateral inguinal hernias and is supposed to undergo surgical intervention with Dr. Fishman in March of this year however he was concerned for recurrent incarceration. She presented to the emergency department with incarcerated hernia that was eventually reduced. Patient has a past medical history including alcoholic cirrhosis of the liver with ascites diagnosed in 2020, po rtal hypertension, GI bleed, atrial fibrillation, COPD, hypothyroidism and arthritis. The patient follows with Dr. Light for his liver cirrhosis and ascites. States that he did see a specialist to [facility] in November or December for possible TIPS procedure however they did not feel it was necessary. He has been getting paracentesis every 1-2 months. He is currently on Lasix 40 mg daily and spironolactone 200 mg daily. He is denying any abdominal pain, no chest pain, shortness of breath, nausea or vomiting. There is no concerns for any GI bleed. Tentative plan is for hernia repair on . General surgery asked us to see patient regarding cirrhosis and portal hypertension. He did undergo a CT of the abdomen and pelvis with contrast that reports small amount of ascites, cirrhotic appearing liver with a 7 mm hyperdense lesion concerning for hepatocellular carcinoma. Today he underwent an ultrasound for paracentesis which reported minimal ascites, not enough for paracentesis. 02/22/2023 Patient was seen and examined his follow-up. No acute changes through the night. Plan is to proceed with inguinal hernia repair . He denies any abdominal pain, nausea vomiting. 02/24/2023 Patient seen and examined as a follow-up. His AFP was less than 3.0. He had surgery yesterday with Dr. Fishman states everything went well. She is having some surgical discomfort otherwise states he's feeling much better. Denies any fevers or chills. Tolerating a regular diet. 02/25/2023 Patient seen and examined today as a follow-up. He is postop day #2 for i nguinal hernia repair. He is having bleeding from one of his incision sites. States that he was coughing last evening and started noticing bleeding. Does appear saturated. He is having some abdominal discomfort, no nausea or vomiting. He has been up and ambulating. Labs currently pending. Objective - Vital Signs Vital signs: Vital Signs Temp 98.7 F 02/25/23 07:14 Pulse 71 02/25/23 07:14 Resp 16 02/25/23 07:14 BP 108/61 02/25/23 07:14 Pulse Ox 98 02/25/23 07:14 FiO2 Intake & Output 02/24/23 02/25/23 02/25/23 18:59 06:59 18:59 Intake Total 250 Output Total 0 Balance 250 Weight 96.162 kg Intake: Intake, IV Titration 250 Amount ACETAMINOPHEN IV (For NPO 200 ) 1,000 mg In Empty Bag 1 bag @ 400 mls/hr IVPB Q6HR JERRY Rx#:[id number] ceFAZolin 2 gm In Sodium 50 Chloride 0.9% 50 ml @ 100 mls/hr IVPB Q8H JERRY Rx#: [id number] Output: Stool 0 Other: Voiding Method Toilet Toilet Urinal Urinal # Voids 1 - Exam General appearance: The patient is alert, oriented, appears in no acute distress. HET: Head is normocephalic and atraumatic. Conjunctiva pink. Sclera anicteric. Neck: Supple without lymphadenopathy. Abdomen: Soft, ABD pads saturated with blood with abdominal binder over. Extremities: Normal skin color and turgor. Pedal edema. Skin: No rashes, no jaundice Neurological: No focal deficits. Alert and oriented. - Labs CBC & Chem 7: 02/25/23 06:39 02/25/23 06:39 Labs: Abnormal Lab Results - Last 24 Hours (Table) 02/23/23 02/24/23 Range/Units 06:25 06:27 RBC 3.15 L (4.30-5.90) m/uL Hgb 10.5 L (13.0-17.5) gm/dL Hct 31.9 L (39.0-53.0) % MCV 101.4 H (80.0-100.0) fL Plt Count 125 L (150-450) k/uL Neutrophils # (Manual) 1.59 L (1.80-7.70) X 10*3/uL Lymphocytes # (Manual) 0.54 L (1.0-4.8) k/uL Metamyelocytes # (Man) 0.18 H (0) k/uL Myelocytes # (Manual) 0.09 H (0) k/uL Promyelocytes # (Man) 0.03 H (0) k/uL Assessment and Plan (1) Decompensation of cirrhosis of liver Narrative/Plan: 67-year-old male diagnosed with alcoholic liver cirrhosis approximately 2 years ago with portal hypertension who follows with his PCP Dr. Light for underlying liver disease. States he does not follow with liver specialist has seen one in November or December of this year for possible TIPS procedure which they felt he did not need. They did at that time increase his spironolactone to 200 mg daily. Patient is without any concerning symptoms, no evidence of GI bleed, liver enzymes are normal however patient did have a CT of the abdomen and pelvis that is reporting 7 mm hyperdense lesion in the liver concerning for hepatocellular carcinoma. Further investigation with MRI can be done as an outpatient. Unfortunately this patient has a history of bilateral inguinal hernias and presented with incarcerated left inguinal hernia which was able to be reduced. There is concern for reoccurrence of incarceration, and tentative plan is for left inguinal hernia repair. This is a patient with decompensated cirrhosis of the liver who is high risk for surgery including increased risk for infection, bleeding, increased ascites, ascitic fluid through surgical sites, as well as increased risk for liver failure. This is discussed with the patient seemingly understands and verbalizes understanding. Current Visit: Yes Status: Acute Code(s): K72.90 - HEPATIC FAILURE, UNSPECIFIED WITHOUT COMA; K74.60 - UNSPECIFIED CIRRHOSIS OF LIVER SNOMED Code(s): 255169469 (2) Liver cirrhosis, alcoholic Narrative/Plan: 67-year-old male diagnosed with alcoholic liver cirrhosis approximately 2 years ago with portal hypertension who follows with his PCP Dr. Light for underlying liver disease. States he does not follow with liver specialist has seen one in November or December of this year for possible TIPS procedure which they felt he did not need. They did at that time increase his Prinivil lactone to 200 mg daily. Patient actually is presenting for inguinal hernia with recurrent incarceration. Plan is for surgery during this hospitalization. Gastroenterology consulted to follow for liver cirrhosis and portal hypertension. Patient is without any concerning symptoms, no evidence of GI bleed, liver enzymes are normal however patient did have a CT of the abdomen and pelvis that is reporting 7 mm hyperdense lesion in the liver concerning for hepatocellular carcinoma. Current Visit: No Status: Acute Code(s): K70.30 - ALCOHOLIC CIRRHOSIS OF LIVER WITHOUT ASCITES SNOMED Code(s): 258707208 (3) History of alcohol abuse Current Visit: Yes Status: Acute Code(s): F10.11 - ALCOHOL ABUSE, IN REMISSION SNOMED Code(s): 545274301 (4) Inguinal hernia Narrative/Plan: Status post surgical repair Current Visit: Yes Status: Acute Code(s): K40.90 - UNIL INGUINAL HERNIA, W/O OBST OR GANGR, NOT SPCF RECUR SNOMED Code(s): 877593389 (5) Atrial fibrillation Current Visit: No Status: Acute Code(s): I48.91 - UNSPECIFIED ATRIAL FIBRILLATION SNOMED Code(s): 15953130 (6) Abnormal computed tomography of abdomen and pelvis Current Visit: Yes Status: Acute Code(s): R93.5 - ABN FINDINGS ON DX IMAGING OF ABD REGIONS, INC RETROPERITON SNOMED Code(s): 55147661449927222 Plan: 1. Continue symptomatic and supportive care 2. Will plan for MRI of the liver as an outpatient 3. AFP ordered, within normal limits 4. Continue diuretics as ordered 5. Low-sodium diet 6. Patient has decompensated cirrhosis of the liver and is high risk for surgery 7. Patient is status post bilateral inguinal hernia repair 8. Continue with recommendations from general surgery Thank you for this consultation, we will sign off at this time. He should follow-up with gastroenterology in 2-[address] Anderson Power I agree with the dictator's note, documented as a scribe by Niki Davis.
--- NOTE | 2023-02-25 15:09 | P.PCN ---
Date of Procedure: 02/25/23 Description of Procedure: SURGEON: SAMI IRBY MD MANAGER PLACEMENT: None. PREOPERATIVE DIAGNOSES: 1. Acute hemorrhage from incisions, epigastric 2. Cirrhosis of the liver POSTOPERATIVE DIAGNOSES: 1. Acute hemorrhage from incisions, epigastric 2. Cirrhosis of the liver PROCEDURES PERFORMED: 1. Control of bleeding at bedside, epigastric incision ANESTHESIA: None ESTIMATED BLOOD LOSS: none SPECIMENS REMOVED: None. COMPLICATIONS: None. FINDINGS: 1. Bleeding on skin edge of the incision after patient had violent coughing DESCRIPTION OR PROCEDURE: Patient reports sitting up in bed and coughing where he felt moisture along his shirt and gross bleeding from its incision of the right upper abdomen. For more than 24 hours, patient had no bleeding. I came at bedside with discontinuing of the dressings. Finding of bleeding along skin edge identified with start of ecchymosis 1 cm border. Initial pressure dressing and 4 x 4 fluffs applied with pressure tape and Steri-Strips half-inch and quarter inch. Bedside chemical cautery placed along skin edge with control of bleeding after 4 sticks. Steri-Strips half-inch place. Pressure dressing using fluffs, ABDs and foam tape placed. Patient is to continue dressing for 24 hours. Otherwise, stable for discharge.
[2023-02-26 00:11] VITALS: RESP 16
[2023-02-26] MEDS: ACETAMINOPHEN IV (For NPO) 1,000 MG in EMPTY BAG 1 BAG IVPB SCH ×3 (01:48→11:07)
[2023-02-26] MEDS: HYDROmorphone 1 MG/ML 1 ML SYRINGE IVP PRN (01:49)
[2023-02-26] MEDS: HYDROcodone/APAP 10-325MG 1 EACH TAB PO PRN (06:05)
[2023-02-26] MEDS: LEVOTHYROXINE 100 MCG TAB PO SCH (06:05)
[2023-02-26 08:35] VITALS: BP 100/68; PULSE 67; TEMP 98.7
[2023-02-26] MEDS: AMOXIC-POT CLAV 875-125MG 1 EACH TAB PO SCH (08:51)
[2023-02-26] MEDS: FAMOTIDINE 20 MG/2 ML VIAL IV SCH (08:51)
[2023-02-26] MEDS: PANTOPRAZOLE 40 MG/10 ML VIAL IVP SCH (08:51)
[2023-02-26] MEDS: FUROSEMIDE 40 MG TAB PO SCH (08:51)
[2023-02-26] MEDS: NIFEdipine XL 30 MG TAB.ER.24 PO SCH (08:52)
[2023-02-26] MEDS: SPIRONOLACTONE 25 MG TAB PO SCH (08:52)
[2023-02-26 09:30] LABS: Blood Urea Nitrogen 10.4 mg/dL (9.0-27.0); Calcium 8.7 mg/dL (8.7-10.3); Carbon Dioxide 26.2 mmol/L (21.6-31.8); Chloride 100 mmol/L (96-109); Glucose 98 mg/dL (70-110); Potassium 3.3 mmol/L (3.5-5.5); Sodium 137 mmol/L (135-145)
[2023-02-26 10:59] LABS: Basophils # (M) 0 X 10*3/uL (0.00-0.10); Eosinophils # (M) 0 X 10*3/uL (0.04-0.35); HCT 25.5 % (39.6-50.0); HGB 8.3 g/dL (13.0-17.0); Lymphocytes # (M) 0.38 X 10*3/uL (0.90-5.00); MCH 32.8 pg (27.0-32.0); MCHC 32.5 g/dL (32.0-37.0); MCV 100.8 FL (80.0-97.0); Mean Platelet Volume 9.6 FL (9.5-12.2); Monocytes # (M) 0.24 X 10*3/uL (0.20-1.00); Myelocytes % 2 % (0-0); NRBC Per 100 WBC 0 X 10*3/uL (0.00-0.01); Neutrophils # (M) 2.74 X 10*3/uL (1.80-7.70); Neutrophils % (M) 80 %; Platelet Count 111 X 10*3/uL (140-440); RBC 2.53 X 10*6/uL (4.40-5.60); RDW 15.9 % (11.5-14.5); Stomatocytes 2+; WBC 3.42 X 10*3/uL (4.50-10.00)
== END 2023-02-26 11:44 | disposition left against medical advice (07) | DRG 351 ==
LOC: EC 11:06 → 5NMEDONC 11:43
PROVIDERS: ADMIT Family Medicine; ATTEND Family Medicine
PROC: 0JB83ZZ Excision of Abdomen Subcutaneous Tissue and Fascia, Percutaneous Approach (ICD-10-PCS; principal; 2023-02-20)
PROC: 8E0W4CZ Robotic Assisted Procedure of Trunk Region, Percutaneous Endoscopic Approach (ICD-10-PCS; principal; 2023-02-20)
PROC: 0YUA4JZ Supplement Bilateral Inguinal Region with Synthetic Substitute, Percutaneous Endoscopic Approach (ICD-10-PCS; principal; 2023-02-20)
PROC: 0W9G3ZZ Drainage of Peritoneal Cavity, Percutaneous Approach (ICD-10-PCS; principal; 2023-02-20)
PROC: 0WQF4ZZ Repair Abdominal Wall, Percutaneous Endoscopic Approach (ICD-10-PCS; principal; 2023-02-20)
PROC: 0W3F3ZZ Control Bleeding in Abdominal Wall, Percutaneous Approach (ICD-10-PCS; 2023-02-25)
DX: K40.30 Unilateral inguinal hernia, with obstruction, without gangrene, not specified as recurrent (principal); I42.9 Cardiomyopathy, unspecified; I50.32 Chronic diastolic (congestive) heart failure; K76.6 Portal hypertension; I11.0 Hypertensive heart disease with heart failure; K70.31 Alcoholic cirrhosis of liver with ascites; I27.20 Pulmonary hypertension, unspecified; D63.8 Anemia in other chronic diseases classified elsewhere; J44.9 Chronic obstructive pulmonary disease, unspecified; I48.0 Paroxysmal atrial fibrillation; F10.20 Alcohol dependence, uncomplicated; K40.90 Unilateral inguinal hernia, without obstruction or gangrene, not specified as recurrent; K43.9 Ventral hernia without obstruction or gangrene; K31.89 Other diseases of stomach and duodenum; R58 Hemorrhage, not elsewhere classified; I34.0 Nonrheumatic mitral (valve) insufficiency; D17.9 Benign lipomatous neoplasm, unspecified; K80.20 Calculus of gallbladder without cholecystitis without obstruction; F41.9 Anxiety disorder, unspecified; G89.29 Other chronic pain; M54.50 Low back pain, unspecified; E03.9 Hypothyroidism, unspecified; K64.9 Unspecified hemorrhoids; M19.90 Unspecified osteoarthritis, unspecified site; M48.00 Spinal stenosis, site unspecified; R16.1 Splenomegaly, not elsewhere classified; E88.09 Other disorders of plasma-protein metabolism, not elsewhere classified; K04.7 Periapical abscess without sinus; K76.9 Liver disease, unspecified; F17.210 Nicotine dependence, cigarettes, uncomplicated; Z71.6 Tobacco abuse counseling; Z79.890 Hormone replacement therapy; Z79.899 Other long term (current) drug therapy
CPT/HCPCS: 36415; 71046; 74177; 76705; 80048; 80053; 82105; 85025; 85027; 85610; 85730; 86850; 86900; 86901; 88302; 93005; 93306; 94640; 96360; 99285

== ENCOUNTER 2023-03-22 12:53 | Day surgery (SDC) | payer MEDICARE ==
[2023-03-22 13:56] LABS: ALT 11 U/L (4-49); AST 19 U/L (17-59); African American GFR (CKD) 87 (>60 ml/min/1.73 sqM); Albumin 4.3 g/dL (3.5-5.0); Alkaline Phosphatase 139 U/L (38-126); Anion Gap 12 mmol/L; Blood Urea Nitrogen 23 mg/dL (9-20); Calcium 9.3 mg/dL (8.4-10.2); Carbon Dioxide 27 mmol/L (22-30); Chloride 99 mmol/L (98-107); Glucose 106 mg/dL (74-99); Non-African American GFR(CKD) 75 (>60 ml/min/1.73 sqM); Potassium 4.1 mmol/L (3.5-5.1); Sodium 138 mmol/L (137-145); Total Protein 6.7 g/dL (6.3-8.2)
[2023-03-22 13:57] LABS: INR 1.1 (<1.2); Prothrombin Time 11.8 sec (10.0-12.5)
[2023-03-22 14:01] VITALS: TEMP 98
[2023-03-22 14:06] LABS: HCT 37.6 % (39.0-53.0); HGB 12.1 gm/dL (13.0-17.5); Hypochromasia Slight; MCH 33.4 pg (25.0-35.0); MCHC 32.2 g/dL (31.0-37.0); MCV 103.8 fL (80.0-100.0); Macrocytosis Moderate; Mean Platelet Volume 8.8; Platelet Count 166 k/uL (150-450); Poikilocytosis Slight; RBC 3.62 m/uL (4.30-5.90); RDW 15.6 % (11.5-15.5); WBC 2.5 k/uL (3.8-10.6)
[2023-03-22 15:00] LABS: Band Neutrophils % 3 %; Basophils # (M) 0.05 k/uL (0-0.2); Eosinophils # (M) 0.08 k/uL (0-0.7); Lymphocytes # (M) 0.38 k/uL (1.0-4.8); Metamyelocytes # (M) 0.03 k/uL (0); Metamyelocytes % 1 %; Monocytes # (M) 0.38 k/uL (0-1.0); Myelocytes # (M) 0.05 k/uL (0); Myelocytes % 2 %; Neutrophils % (M) 63 %; Nucleated Red Blood Cells 0 /100 WBC (0-0); Total Cells Counted 200
[2023-03-22] MEDS: ALBUMIN HUMAN 25% 50 ML in EMPTY BAG 1 BAG IVPB SCH ×2 (15:22→15:23)
--- NOTE | 2023-03-22 15:38 | US ---
Ultrasound-guided paracentesis. DATE OF EXAM: 03/22/2023 CLINICAL HISTORY: Ascites The procedure was discussed with the patient. The risks, complications, benefits, and alternatives we re discussed and any questions were answered. Informed consent was obtained. The patient was placed s upine on the ultrasound table and prepped and draped in the usual sterile fashion. All elements of maximal barrier technique were utilized. Under ultrasound guidance, access into the right lower quadrant was obtained, via the paracentesis catheter system and direct ultrasound guidanc e. Approximately 3.8 liters of straw-colored fluid was removed. The patient was stable throughout the pr ocedure and remained stable upon discharge from Department of Radiology. IMPRESSION: Successful paracentesis under ultrasound guidance.
[2023-03-22 15:41] VITALS: BP 100/67; PULSE 70; RESP 16
[2023-03-22 20:54] LABS: Chol/HDL Ratio 2.92 Ratio; LDL Cholesterol,Calculated 77.5 mg/dL (0.0-131.0); VLDL Calculation 13.32 mg/dL (5.00-40.00)
[2023-03-22 20:55] LABS: % Iron Saturation 17.19 (15.00-50.00); Iron 60 UG/DL (65-175); Total Iron Binding Capacity 349 UG/DL (228-460)
== END 2023-03-22 15:30 | disposition home or self-care (01) ==
LOC: RADPROMAIN 12:53
PROVIDERS: ATTEND Family Medicine
DX: R18.8 Other ascites (principal)
CPT/HCPCS: 36415; 49083; 80053; 80061; 83036; 83540; 83550; 84153; 84154; 84443; 85025; 85610

== ENCOUNTER 2023-04-19 12:29 | Day surgery (SDC) | payer MEDICARE ==
[2023-04-19] MEDS ORDERED: ALBUMIN HUMAN 25% 50 ML in EMPTY BAG 1 BAG IVPB SCH (12:45)
[2023-04-19 12:58] LABS: Platelet Count 164 k/uL (150-450)
[2023-04-19 13:03] LABS: INR 1.2 (<1.2); Prothrombin Time 12.5 sec (10.0-12.5)
[2023-04-19 13:19] LABS: African American GFR (CKD) >90 (>60 ml/min/1.73 sqM); Non-African American GFR(CKD) 85 (>60 ml/min/1.73 sqM)
[2023-04-19 13:28] VITALS: TEMP 98.2
[2023-04-19 15:06] VITALS: BP 116/69; PULSE 74; RESP 18
--- NOTE | 2023-04-19 16:19 | US ---
EXAMINATION TYPE: US paracentesis abd w/image DATE OF EXAM: 04/19/2023 CLINICAL HISTORY: 67-year-old male K74.60, referred for therapeutic paracentesis The procedure was discussed with the patient. The risks, complications, benefits, and alternatives we re discussed and any questions were answered. Informed consent was obtained. The patient was placed s upine on the ultrasound table and prepped and draped in the usual sterile fashion. All elements of maximal barrier technique were utilized. Ultrasound was utilized to determine the precise skin entry site along the right lower quadrant/right flank. A 5 Panamanian one-step catheter and trocar technique was utilized to access the ascites collection under direct ultrasound guidance. Approximately 4.4 liters of normal straw-colored fluid was removed. The patient was stable throughout the procedure and remained stable upon discharge from Department of Radiology. IMPRESSION: Successful therapeutic paracentesis under ultrasound guidance. 4.4 L of fluid removed.
== END 2023-04-19 14:58 | disposition home or self-care (01) ==
LOC: RADPROMAIN 12:29
PROVIDERS: ATTEND Family Medicine
DX: R18.8 Other ascites (principal)
CPT/HCPCS: 36415; 49083; 82565; 85049; 85610

== ENCOUNTER 2023-05-18 12:31 | Day surgery (SDC) | payer MEDICARE ==
[2023-05-18 13:14] LABS: Platelet Count 179 k/uL (150-450)
[2023-05-18 13:19] LABS: INR 1.2 (<1.2); Prothrombin Time 12.8 sec (10.0-12.5)
[2023-05-18 13:22] LABS: African American GFR (CKD) 87 (>60 ml/min/1.73 sqM); Non-African American GFR(CKD) 75 (>60 ml/min/1.73 sqM)
[2023-05-18 13:43] VITALS: RESP 18; TEMP 97.6
--- NOTE | 2023-05-18 15:39 | US ---
Ultrasound-guided paracentesis. DATE OF EXAM: 05/18/2023 CLINICAL HISTORY: Ascites The procedure was discussed with the patient. The risks, complications, benefits, and alternatives we re discussed and any questions were answered. Informed consent was obtained. The patient was placed s upine on the ultrasound table and prepped and draped in the usual sterile fashion. All elements of maximal barrier technique were utilized. Under ultrasound guidance, access into the right lower quadrant was obtained, via the paracentesis catheter system and direct ultrasound guidanc e. Approximately 5.8 liters of straw-colored fluid was removed. The patient was stable throughout the pr ocedure and remained stable upon discharge from Department of Radiology. IMPRESSION: Successful paracentesis under ultrasound guidance.
[2023-05-18 15:44] VITALS: BP 121/74; PULSE 65
== END 2023-05-18 15:40 | disposition home or self-care (01) ==
LOC: RADPROMAIN 12:31
PROVIDERS: ATTEND Family Medicine
DX: R18.8 Other ascites (principal)
CPT/HCPCS: 36415; 49083; 82565; 85049; 85610

== ENCOUNTER 2023-06-15 12:59 | Day surgery (SDC) | payer MEDICARE ==
[2023-06-15 13:22] LABS: Mean Platelet Volume 9.1; Platelet Count 145 k/uL (150-450)
[2023-06-15 13:29] LABS: INR 1.2 (<1.2); Prothrombin Time 12.7 sec (10.0-12.5)
[2023-06-15 13:37] LABS: African American GFR (CKD) 89 (>60 ml/min/1.73 sqM); Non-African American GFR(CKD) 77 (>60 ml/min/1.73 sqM)
[2023-06-15 13:56] VITALS: RESP 16; TEMP 98.2
[2023-06-15] MEDS: ALBUMIN HUMAN 25% 50 ML in EMPTY BAG 1 BAG IVPB SCH (14:58)
[2023-06-15 15:39] VITALS: BP 107/66; PULSE 53
--- NOTE | 2023-06-15 16:46 | US ---
EXAMINATION TYPE: US paracentesis abd w/image DATE OF EXAM: 06/15/2023 CLINICAL HISTORY: 67-year-old male K74.60 UNSPECIFIED CIRRHOSIS OF LIVER The procedure was discussed with the patient. The risks, complications, benefits, and alternatives we re discussed and any questions were answered. Informed consent was obtained. The patient was placed s upine on the ultrasound table and prepped and draped in the usual sterile fashion. All elements of maximal barrier technique were utilized. Ultrasound was utilized to determine the precise skin entry site along the right lower quadrant/right flank. A 5 Malawian One-Step catheter and trocar technique was utilized to access the ascites collection under direct ultrasound guidance. Approximately 6.4 liters of clear, straw-colored fluid was removed. Catheter was removed, hemostasis obtained, and a dressing placed. The patient was stable throughout the procedure and remained stable upon discharge from Department of Radiology. IMPRESSION: Successful therapeutic paracentesis under ultrasound guidance. 6.4 L of fluid removed.
== END 2023-06-15 15:45 | disposition home or self-care (01) ==
LOC: RADPROMAIN 12:59
PROVIDERS: ATTEND Family Medicine
DX: K74.60 Unspecified cirrhosis of liver (principal)
CPT/HCPCS: 82565; 85049; 85610; 49083; P9047

== ENCOUNTER 2023-07-13 13:01 | Day surgery (SDC) | payer MEDICARE ==
[2023-07-13 13:31] LABS: Mean Platelet Volume 9.3; Platelet Count 178 k/uL (150-450)
[2023-07-13 13:42] LABS: African American GFR (CKD) >90 (>60 ml/min/1.73 sqM); Non-African American GFR(CKD) 82 (>60 ml/min/1.73 sqM)
[2023-07-13 13:52] VITALS: TEMP 99.1
[2023-07-13 13:59] LABS: INR 1.2 (<1.2); Prothrombin Time 12.5 sec (10.0-12.5)
[2023-07-13 14:32] VITALS: RESP 16
[2023-07-13] MEDS: ALBUMIN HUMAN 25% 50 ML in EMPTY BAG 1 BAG IVPB SCH (14:32)
[2023-07-13 15:11] VITALS: BP 111/68; PULSE 68
--- NOTE | 2023-07-18 09:31 | US ---
EXAMINATION TYPE: US paracentesis abd w/image DATE OF EXAM: 07/13/2023 2:07 PM CLINICAL INDICATION:Male, 67 years old with history of K74.60 UNSPECIFIED CIRRHOSIS OF LIVER; COMPARISON: 06/15/2023. ATTENDING: Dr. Yehuda Jeong PROCEDURE: Informed consent was obtained. The risks of the procedure were extensively explained incl uding risk of damage to surrounding bowel with perforation and need for additional procedures. Proced ure was performed in the ultrasound procedure suite. Ultrasound imaging of the abdomen demonstrate as citic fluid. An appropriate access site was localized to the right lower abdomen. Timeout was taken p er protocol. The skin was prepped and draped in the usual sterile fashion and then locally anesthetiz ed with 1% lidocaine. The peritoneal cavity was then accessed via a 5-Telugu one-step needle/cathete r. Approximately 5700 cc of fluid was obtained. Postprocedural imaging of the abdomen demonstrate a minimal amount of abdominal fluid. Patient tolerated procedure well without immediate complication. Hemostasis at the procedural site w as obtained with a sterile bandage placed. The patient was monitored in the holding area following th e procedure and was subsequently discharged in stable condition. IMPRESSION: Ultrasound guided paracentesis, with approximately 5700 cc of fluid drained. No immediate complicati ons were evident.
== END 2023-07-13 15:15 | disposition home or self-care (01) ==
LOC: RADPROMAIN 13:01
PROVIDERS: ATTEND Family Medicine
DX: K74.60 Unspecified cirrhosis of liver (principal)
CPT/HCPCS: 82565; 85049; 85610; 49083; P9047

== ENCOUNTER 2023-08-10 13:05 | Day surgery (SDC) | payer MEDICARE ==
[2023-08-10] MEDS ORDERED: ALBUMIN HUMAN 25% 50 ML in EMPTY BAG 1 BAG IVPB SCH (13:30)
[2023-08-10 13:42] LABS: Mean Platelet Volume 9.2; Platelet Count 135 k/uL (150-450)
[2023-08-10 13:54] LABS: African American GFR (CKD) 81 (>60 ml/min/1.73 sqM); Non-African American GFR(CKD) 70 (>60 ml/min/1.73 sqM)
[2023-08-10 14:10] LABS: INR 1.1 (<1.2)
[2023-08-10 14:17] VITALS: TEMP 98.3
[2023-08-10 15:11] VITALS: BP 101/67; PULSE 68
[2023-08-10 15:12] VITALS: RESP 16
--- NOTE | 2023-08-10 15:29 | US ---
Ultrasound-guided paracentesis. DATE OF EXAM: 08/10/2023 CLINICAL HISTORY: Ascites The procedure was discussed with the patient. The risks, complications, benefits, and alternatives we re discussed and any questions were answered. Informed consent was obtained. The patient was placed s upine on the ultrasound table and prepped and draped in the usual sterile fashion. All elements of maximal barrier technique were utilized. Under ultrasound guidance, access into the right lower quadrant was obtained, via the paracentesis catheter system and direct ultrasound guidanc e. Approximately 4 liters of straw-colored fluid was removed. The patient was stable throughout the proc edure and remained stable upon discharge from Department of Radiology. IMPRESSION: Successful paracentesis under ultrasound guidance.
== END 2023-08-10 15:03 | disposition home or self-care (01) ==
LOC: RADPROMAIN 13:05
PROVIDERS: ATTEND Family Medicine
DX: R18.8 Other ascites (principal)
CPT/HCPCS: 36415; 49083; 82565; 85049; 85610

== ENCOUNTER 2023-09-13 12:32 | Day surgery (SDC) | payer MEDICARE ==
[2023-09-13 13:18] LABS: HCT 33.8 % (39.0-53.0); MCH 32.9 pg (25.0-35.0); MCHC 32.4 g/dL (31.0-37.0); MCV 101.4 fL (80.0-100.0); Macrocytosis Slight; Mean Platelet Volume 8.5; Platelet Count 146 k/uL (150-450); RBC 3.34 m/uL (4.30-5.90); RDW 15.3 % (11.5-15.5); WBC 2.4 k/uL (3.8-10.6)
[2023-09-13 13:24] VITALS: RESP 18; TEMP 98.4
[2023-09-13 13:25] LABS: INR 1.2 (<1.2); Prothrombin Time 12.8 sec (10.0-12.5)
[2023-09-13 13:28] LABS: ALT 9 U/L (4-49); AST 18 U/L (17-59); African American GFR (CKD) 85 (>60 ml/min/1.73 sqM); Alkaline Phosphatase 106 U/L (38-126); Anion Gap 6 mmol/L; Blood Urea Nitrogen 18 mg/dL (9-20); Calcium 8.5 mg/dL (8.4-10.2); Carbon Dioxide 29 mmol/L (22-30); Chloride 102 mmol/L (98-107); Glucose 102 mg/dL (74-99); Non-African American GFR(CKD) 73 (>60 ml/min/1.73 sqM); Potassium 3.7 mmol/L (3.5-5.1); Sodium 137 mmol/L (137-145); Total Bilirubin 1.1 mg/dL (0.2-1.3); Total Protein 6.1 g/dL (6.3-8.2)
[2023-09-13] MEDS: ALBUMIN HUMAN 25% 50 ML in EMPTY BAG 1 BAG IVPB SCH (14:04)
[2023-09-13 14:27] VITALS: BP 107/69; PULSE 58
[2023-09-13 15:36] LABS: Band Neutrophils % 3 %; Eosinophils # (M) 0.05 k/uL (0-0.7); Lymphocytes # (M) 0.62 k/uL (1.0-4.8); Metamyelocytes # (M) 0.05 k/uL (0); Metamyelocytes % 2 %; Monocytes # (M) 0.26 k/uL (0-1.0); Neutrophils % (M) 58 %; Nucleated Red Blood Cells 0 /100 WBC (0-0); Total Cells Counted 200
[2023-09-13 21:16] LABS: LDL Cholesterol,Calculated 88.5 mg/dL (0.0-131.0); VLDL Calculation 16.58 mg/dL (5.00-40.00)
--- NOTE | 2023-09-14 09:25 | US ---
EXAMINATION TYPE: US paracentesis abd w/image DATE OF EXAM: 09/13/2023 2:31 PM CLINICAL INDICATION:Male, 68 years old with history of K70.31 cirrhosis; COMPARISON: 08/10/2023 ATTENDING: Dr. Yehuda Jeong PROCEDURE: Informed consent was obtained. The risks of the procedure were extensively explained incl uding risk of damage to surrounding bowel with perforation and need for additional procedures. Proced ure was performed in the ultrasound procedure suite. Ultrasound imaging of the abdomen demonstrate as citic fluid. An appropriate access site was localized to the right lower abdomen. Timeout was taken p er protocol. The skin was prepped and draped in the usual sterile fashion and then locally anesthetiz ed with 1% lidocaine. The peritoneal cavity was then accessed via a 5-Macedonian one-step needle/cathete r. Approximately 4900 cc of clear straw-colored fluid was obtained. Postprocedural imaging of the a bdomen demonstrate a minimal amount of abdominal fluid. Patient tolerated procedure well without immediate complication. Hemostasis at the procedural site w as obtained with a sterile bandage placed. The patient was monitored in the holding area following th e procedure and was subsequently discharged in stable condition. IMPRESSION: Ultrasound guided paracentesis, with approximately 4900 cc of clear straw-colored fluid drained. No immediate complications were evident.
== END 2023-09-13 14:40 | disposition home or self-care (01) ==
LOC: RADPROMAIN 12:32
PROVIDERS: ATTEND Family Medicine
DX: K74.60 Unspecified cirrhosis of liver (principal)
CPT/HCPCS: 80061; 80053; 84443; 85025; 85610; 36415; 49083; G0103; P9047

== ENCOUNTER 2023-10-12 12:31 | Day surgery (SDC) | payer MEDICARE ==
[2023-10-12 13:42] LABS: Mean Platelet Volume 8.8; Platelet Count 140 k/uL (150-450)
[2023-10-12 13:47] LABS: INR 1.2 (<1.2); Prothrombin Time 12.6 sec (10.0-12.5)
[2023-10-12 14:12] VITALS: RESP 18; TEMP 97.8
[2023-10-12 14:20] LABS: African American GFR (CKD) 89 (>60 ml/min/1.73 sqM); Non-African American GFR(CKD) 77 (>60 ml/min/1.73 sqM)
[2023-10-12 15:09] VITALS: BP 112/70; PULSE 64
--- NOTE | 2023-10-14 07:39 | US ---
Ultrasound-guided paracentesis. DATE OF EXAM: 10/12/2023 CLINICAL HISTORY: Ascites The procedure was discussed with the patient. The risks, complications, benefits, and alternatives we re discussed and any questions were answered. Informed consent was obtained. The patient was placed s upine on the ultrasound table and prepped and draped in the usual sterile fashion. All elements of maximal barrier technique were utilized. Under ultrasound guidance, access into the right lower quadrant was obtained, via the paracentesis catheter system and direct ultrasound guidanc e. Approximately 4.8 liters of straw-colored fluid was removed. The patient was stable throughout the pr ocedure and remained stable upon discharge from Department of Radiology. IMPRESSION: Successful paracentesis under ultrasound guidance.
== END 2023-10-12 15:10 | disposition home or self-care (01) ==
LOC: RADPROMAIN 12:31
PROVIDERS: ATTEND Family Medicine
DX: R18.8 Other ascites (principal)
CPT/HCPCS: 49083; 82565; 85049; 85610

== ENCOUNTER → 2023-11-16 | Day surgery (SDC) | payer MEDICARE ==
--- NOTE | 2023-12-13 13:36 | US ---
Report Patient: Mikey Hernadez C Ordering Physician: Unknown, Unknown ID: [id number] Phone, Pager: Phone: N/A Pager: N/A : 1955 Age/Gender: 68Y, M Primary Location: N/A Procedure: US paracentesis abd w/image Study Date: 11/16/2023 2:07:00 PM EXAMINATION TYPE: US paracentesis abd w/image DATE OF EXAM: 12/05/2023 CLINICAL HISTORY: 68-year-old male referred for paracentesis The procedure was discussed with the patient. The risks, complications, benefits, and alternatives we re discussed and any questions were answered. Informed consent was obtained. The patient was placed s upine on the ultrasound table and prepped and draped in the usual sterile fashion. All elements of maximal barrier technique were utilized. Ultrasound was utilized to determine the precise skin entry site along the right lower quadrant. Utilizing 5 [place] one-step catheter, access into the right lower quadrant was obtained with direct u ltrasound guidance. Approximately 3.7 liters of fluid was removed. The patient was stable throughout the procedure and re mained stable upon discharge from Department of Radiology. IMPRESSION: Successful paracentesis under ultrasound guidance. 3.7 L of fluid removed.
== END ==
LOC: RADPROMAIN 12:49
PROVIDERS: ATTEND Family Medicine
DX: R18.8 Other ascites (principal)
CPT/HCPCS: 49083; 82565; 85049; 85610

== ENCOUNTER 2023-12-21 12:35 | Day surgery (SDC) | payer MEDICARE ==
[2023-12-21 13:34] LABS: Mean Platelet Volume 8.9; Platelet Count 159 k/uL (150-450)
[2023-12-21 13:38] LABS: INR 1.1 (<1.2); Prothrombin Time 12.1 sec (10.0-12.5)
[2023-12-21 13:47] VITALS: TEMP 97.9
[2023-12-21 13:47] LABS: African American GFR (CKD) 76 (>60 ml/min/1.73 sqM); Non-African American GFR(CKD) 66 (>60 ml/min/1.73 sqM)
[2023-12-21] MEDS: ALBUMIN HUMAN 25% 50 ML in EMPTY BAG 1 BAG IVPB SCH (15:01)
[2023-12-21 15:02] VITALS: BP 117/72; PULSE 62; RESP 16
--- NOTE | 2023-12-21 15:45 | US ---
EXAMINATION TYPE: US paracentesis abd w/image DATE OF EXAM: 12/21/2023 CLINICAL HISTORY: 68-year-old male referred for regular paracentesis, currently being performed ever y 5 weeks. K74.60 UNSPECIFIED CIRRHOSIS OF LIVER The procedure was discussed with the patient. The risks, complications, benefits, and alternatives we re discussed and any questions were answered. Informed consent was obtained. The patient was placed s upine on the ultrasound table and prepped and draped in the usual sterile fashion. All elements of maximal barrier technique were utilized. Ultrasound was utilized to determine the precise skin entry site along the left right lower quadrant. A 5 [place] One-Step catheter and trocar technique was utilized to access the ascites collection under direct ultrasound guidance. Approximately 3.3 liters of clear, straw-colored fluid was removed. Catheter was removed, hemostasis obtained, and a dressing placed. The patient was stable throughout the procedure and remained stable upon discharge from Department of Radiology. IMPRESSION: Successful therapeutic paracentesis under ultrasound guidance. 3.3 L of fluid removed. The patient is adjusting his paracentesis interval to every 6 weeks now.
== END 2023-12-21 15:00 | disposition home or self-care (01) ==
LOC: RADPROMAIN 12:35
PROVIDERS: ATTEND Family Medicine
DX: K74.60 Unspecified cirrhosis of liver
CPT/HCPCS: 36415; 49083; 82565; 85049; 85610

== ENCOUNTER 2024-02-02 12:57 | Day surgery (SDC) | payer MEDICARE ==
[2024-02-02 13:49] LABS: Mean Platelet Volume 8.9; Platelet Count 162 k/uL (150-450)
[2024-02-02 14:06] LABS: African American GFR (CKD) 85 (>60 ml/min/1.73 sqM); Non-African American GFR(CKD) 73 (>60 ml/min/1.73 sqM)
[2024-02-02 14:16] LABS: INR 1.1 (<1.2); Prothrombin Time 11.6 sec (10.0-12.5)
[2024-02-02 14:38] VITALS: RESP 16; TEMP 97.6
--- NOTE | 2024-02-02 15:21 | US ---
EXAMINATION TYPE: US paracentesis abd w/image DATE OF EXAM: 02/02/2024 CLINICAL HISTORY: 68-year-old male K74.60, ascites, here for routine outpatient paracentesis. The procedure was discussed with the patient. The risks, complications, benefits, and alternatives we re discussed and any questions were answered. Informed consent was obtained. The patient was placed s upine on the ultrasound table and prepped and draped in the usual sterile fashion. All elements of maximal barrier technique were utilized. Ultrasound was utilized to determine the precise skin entry site along the right lower quadrant. Subsequently, a 5 [place] One-Step catheter and trocar technique was utilized to access the ascites co llection. Approximately 2.5 liters of clear, straw-colored fluid was removed. Catheter was removed, hemostasis obtained, and a dressing placed. The patient was stable throughout the procedure and remained stable upon discharge from Department of Radiology. IMPRESSION: Successful therapeutic paracentesis under ultrasound guidance. 2.5 L of fluid removed. [facility], , 02/02/2024 3:19 PM
[2024-02-02 15:38] VITALS: PULSE 62
[2024-02-02 15:39] VITALS: BP 117/59
[2024-02-02] MEDS: ALBUMIN HUMAN 25% 50 ML in EMPTY BAG 1 BAG IVPB SCH (15:47)
== END 2024-02-02 15:30 | disposition home or self-care (01) ==
LOC: RADPROMAIN 12:57
PROVIDERS: ATTEND Family Medicine
DX: K70.31 Alcoholic cirrhosis of liver with ascites (principal)
CPT/HCPCS: 36415; 49083; 82565; 85049; 85610

== ENCOUNTER 2024-03-29 09:03 | Day surgery (SDC) | payer MEDICARE ==
--- NOTE | 2024-03-29 10:50 | US ---
EXAMINATION TYPE: US discontinued paracentesis DATE OF EXAM: 03/29/2024 9:42 AM COMPARISON: prior paracentesis. CLINICAL INDICATION:Male, 68 years old with history of K74.60 UNSPECIFIED CIRRHOSIS OF LIVER; , ascit es ATTENDING: Dr. Yehuda Jeong PROCEDURE procedure was canceled after initial imaging demonstrated minimal fluid, patient was agreea ble to this and patient was discharged. IMPRESSION: Canceled paracentesis due to low volume of fluid [facility], , 03/29/2024 10:47 AM
== END 2024-03-29 09:55 | disposition home or self-care (01) ==
LOC: RADPROMAIN 09:03
PROVIDERS: ATTEND Family Medicine
DX: Z53.8 Procedure and treatment not carried out for other reasons (principal); K74.60 Unspecified cirrhosis of liver
CPT/HCPCS: 76705